=== PATIENT | male | born 1950 | race American Indian/Alaskan Native ===

== ENCOUNTER 2017-12-31 14:56 | Emergency (ER) | payer MEDICAID ==
[2017-12-31 15:21] VITALS: BP 144/84
== END 2017-12-31 18:46 | disposition left against medical advice (07) ==
LOC: ED 14:56
DX: R56.9 Unspecified convulsions (principal); Z76.0 Encounter for issue of repeat prescription; Z53.21 Procedure and treatment not carried out due to patient leaving prior to being seen by health care provider

== ENCOUNTER 2018-02-24 09:16 | Emergency (ER) | payer MEDICARE, MEDICAID ==
[2018-02-24 09:24] VITALS: BP 130/80
[2018-02-24] MEDS ORDERED: KEPPRA PO ONE (09:51)
--- NOTE | 2018-02-24 09:55 | Emergency Department Report ---
ED Medical Clearance HPI - General Chief complaint: Medical Clearance Stated complaint: MED REFILL Time Seen by Provider: 02/24/18 09:28 Source: patient, family Mode of arrival: Ambulatory - History of Present Illness Initial comments: Patient is a 67-year-old [place] male who is been brought in by his sister for medication refill. Patient has a history of seizures been off of his Keppra and phenobarbital for some time. Patient also is a heavy drinker when he drinks he curses quite a bit of his sister and sister's children. Patient is that this time is not homicidal or suicidal. Patient does not have any active hallucinations. Patient was brought in for refill of his seizure medications and to possibly be restarted on psychiatric medications. Home medications: Home Medications Medication Instructions Recorded Confirmed Last Taken PHENobarbital [Phenobarbital] 1 tab PO DAILY 07/02/15 09/07/15 Unknown Previous Rx's Medication Instructions Recorded Last Taken Type Folic Acid [Folvite] 1 mg PO QDAY #30 tablet 07/04/15 Unknown Rx Multivitamin Tab [Multiple Vitamin 1 each PO QDAY #30 tablet 07/04/15 Unknown Rx TAB (Theragran)] Thiamine [Vitamin B-1] 100 mg PO QDAY #30 tablet 07/04/15 Unknown Rx PHENobarbital 15 mg PO BID #60 tablet 02/24/18 Unknown Rx levETIRAcetam [Keppra TAB] 500 mg PO BID #60 tablet 02/24/18 Unknown Rx Allergies/Adverse reactions: Allergies Allergy/AdvReac Type Severity Reaction Status Date / Time No Known Allergies Allergy Verified 02/24/18 09:21 ED Review of Systems ROS: Stated complaint: MED REFILL Other details as noted in HPI Comment: All other systems reviewed and negative ED Past Medical Hx - Past Medical History Hx Congestive Heart Failure: No Hx Diabetes: No Hx Seizures: Yes Hx Psychiatric Treatment: Yes Hx Asthma: No Hx COPD: No - Surgical History Past Surgical History?: No - Social History Smoking Status: Current Every Day Smoker Substance Use Type: Alcohol - Medications Home Medications: Home Medications Medication Instructions Recorded Confirmed Last Taken Type PHENobarbital [Phenobarbital] 1 tab PO DAILY 07/02/15 09/07/15 Unknown History Folic Acid [Folvite] 1 mg PO QDAY #30 tablet 07/04/15 09/07/15 Unknown Rx Multivitamin Tab [Multiple Vitamin 1 each PO QDAY #30 tablet 07/04/15 09/07/15 Unknown Rx TAB (Theragran)] Thiamine [Vitamin B-1] 100 mg PO QDAY #30 tablet 07/04/15 09/07/15 Unknown Rx PHENobarbital 15 mg PO BID #60 tablet 02/24/18 Unknown Rx levETIRAcetam [Keppra TAB] 500 mg PO BID #60 tablet 02/24/18 Unknown Rx ED Physical Exam - General Limitations: No Limitations General appearance: alert, in no apparent distress - Head Head exam: Present: atraumatic, normocephalic - Eye Eye exam: Present: normal appearance - ENT ENT exam: Present: mucous membranes moist - Neck Neck exam: Present: normal inspection - Respiratory Respiratory exam: Present: normal lung sounds bilaterally. Absent: respiratory distress, wheezes, rales, rhonchi - Cardiovascular Cardiovascular Exam: Present: regular rate, normal rhythm. Absent: systolic murmur, diastolic murmur, rubs, gallop - GI/Abdominal GI/Abdominal exam: Present: soft, normal bowel sounds. Absent: distended, tenderness, guarding - Rectal Rectal exam: Present: deferred - Extremities Exam Extremities exam: Present: normal inspection - Back Exam Back exam: Present: normal inspection - Neurological Exam Neurological exam: Present: alert, oriented X3 - Psychiatric Psychiatric exam: Present: normal affect, normal mood - Skin Skin exam: Present: warm, dry, intact, normal color. Absent: rash ED Course Vital Signs 02/24/18 09:21 Temperature 98.4 F Pulse Rate 70 Respiratory 18 Rate Blood Pressure 130/80 O2 Sat by Pulse 97 Oximetry ED Medical Decision Making - Medical Decision Making Patient was given loading doses of his seizure medication as it was also referred to the hospital for further psychiatric treatment. ED Disposition Clinical Impression: Medical non-compliance, ETOH abuse, Seizure Disposition: DC-01 TO HOME OR SELFCARE Is pt being admited?: No Does the pt Need Aspirin: No Condition: Stable Instructions: Epilepsy (ED) Prescriptions: levETIRAcetam [Keppra TAB] 500 mg PO BID #60 tablet PHENobarbital 15 mg PO BID #60 tablet Referrals: PRIMARY CARE, [Primary Care Provider] - 3-5 Days
== END 2018-02-24 10:16 | disposition home or self-care (01) ==
LOC: ED 09:16
DX: G40.909 Epilepsy, unspecified, not intractable, without status epilepticus (principal); Z91.14 Patient's other noncompliance with medication regimen; F10.10 Alcohol abuse, uncomplicated; F17.200 Nicotine dependence, unspecified, uncomplicated
CPT/HCPCS: 99282

== ENCOUNTER 2020-05-30 15:19 | Emergency (ER) | payer MEDICARE ==
[2020-05-30 15:28] VITALS: BP 116/43
[2020-05-30 16:05] LABS: Hematocrit 43.2 % (35.5-45.6); Hemoglobin 14.1 gm/dl (11.8-15.2); Mean Corpuscular HGB Conc 33 % (32-34); Mean Corpuscular Volume 91 fl (84-94); Platelet Count 200 K/mm3 (140-440); Red Blood Count 4.73 M/mm3 (3.65-5.03); Red Cell Distribution Width 15.5 % (13.2-15.2)
[2020-05-30 16:25] LABS: BUN/Creatinine Ratio 8; Blood Urea Nitrogen 9 mg/dL (9-20); Calcium 9.1 mg/dL (8.4-10.2); Hemolysis Index 24
[2020-05-30] MEDS ORDERED: levETIRAcetam 1000 MG/NS 0.75% 1,000 MG/100 ML BAG IV ONE (16:33)
--- NOTE | 2020-05-30 16:41 | Emergency Department Report ---
ED Seizure HPI - General Chief Complaint: Seizure Stated Complaint: seizure Time Seen by Provider: 05/30/20 16:32 Source: patient Mode of arrival: Wheelchair Limitations: No Limitations - History of Present Illness Initial Comments: This is a 69-year-old male with history of bipolar disorder, seizure disorder, alcohol dependence who presents with witnessed seizure. Family members witnessed the seizure. He was incontinent of urine. He denies any pain. He currently desires a cigarette. According to previous electronic documentation in the electronic medical record, patient has been prescribed phenobarbital and Keppra. Complaint: seizure -: This afternoon Witnessed:: Yes Trauma: No Seizure History: known seizure disorder Place: home Associated Symptoms: denies other symptoms Treatments Prior to Arrival: none - Related Data Home Medications Medication Instructions Recorded Confirmed Last Taken PHENobarbitaL [Phenobarbital] 1 tab PO DAILY 07/02/15 09/07/15 Unknown Previous Rx's Medication Instructions Recorded Last Taken Type Folic Acid [Folvite] 1 mg PO QDAY #30 tablet 07/04/15 Unknown Rx Multivitamin Tab [Multiple Vitamin 1 each PO QDAY #30 tablet 07/04/15 Unknown Rx TAB (Theragran)] Thiamine [Vitamin B-1] 100 mg PO QDAY #30 tablet 07/04/15 Unknown Rx PHENobarbitaL [PHENobarbital] 15 mg PO BID #60 tablet 02/24/18 Unknown Rx PHENobarbitaL [PHENobarbital] 15 mg PO BID #60 tab 03/03/20 Unknown Rx levETIRAcetam [Keppra TAB] 500 mg PO BID #60 tablet 03/03/20 Unknown Rx PHENobarbitaL [PHENobarbital] 15 mg PO BID 30 Days #60 tablet 05/30/20 Unknown Rx levETIRAcetam [Keppra TAB] 500 mg PO BID #60 tablet 05/30/20 Unknown Rx Allergies Allergy/AdvReac Type Severity Reaction Status Date / Time No Known Allergies Allergy Verified 02/24/18 09:21 ED Review of Systems ROS: Stated complaint: seizure Other details as noted in HPI Comment: All other systems reviewed and negative Constitutional: denies: fever, malaise Respiratory: denies: cough, shortness of breath Cardiovascular: denies: chest pain Gastrointestinal: denies: abdominal pain, nausea, vomiting Neurological: denies: headache ED Past Medical Hx - Past Medical History Previous Medical History?: Yes Hx Congestive Heart Failure: No Hx Diabetes: No Hx Seizures: Yes Hx Psychiatric Treatment: Yes Hx Asthma: No Hx COPD: No - Surgical History Past Surgical History?: No - Social History Smoking Status: Current Every Day Smoker Substance Use Type: Alcohol - Medications Home Medications: Home Medications Medication Instructions Recorded Confirmed Last Taken Type PHENobarbitaL [Phenobarbital] 1 tab PO DAILY 07/02/15 09/07/15 Unknown History Folic Acid [Folvite] 1 mg PO QDAY #30 tablet 07/04/15 09/07/15 Unknown Rx Multivitamin Tab [Multiple Vitamin 1 each PO QDAY #30 tablet 07/04/15 09/07/15 Unknown Rx TAB (Theragran)] Thiamine [Vitamin B-1] 100 mg PO QDAY #30 tablet 07/04/15 09/07/15 Unknown Rx PHENobarbitaL [PHENobarbital] 15 mg PO BID #60 tablet 02/24/18 Unknown Rx PHENobarbitaL [PHENobarbital] 15 mg PO BID #60 tab 03/03/20 Unknown Rx levETIRAcetam [Keppra TAB] 500 mg PO BID #60 tablet 03/03/20 Unknown Rx PHENobarbitaL [PHENobarbital] 15 mg PO BID 30 Days #60 tablet 05/30/20 Unknown Rx levETIRAcetam [Keppra TAB] 500 mg PO BID #60 tablet 05/30/20 Unknown Rx ED Physical Exam - General Limitations: No Limitations General appearance: alert, in no apparent distress, appears intoxicated, other (Vomitus in parsons, soiled clothing, pants soaked with urine) - Head Head exam: Present: atraumatic, normocephalic - Eye Eye exam: Present: PERRL, conjunctival injection - ENT ENT exam: Present: mucous membranes moist - Neck Neck exam: Present: normal inspection, full ROM - Respiratory Respiratory exam: Present: normal lung sounds bilaterally. Absent: respiratory distress, wheezes, rales, rhonchi - Cardiovascular Cardiovascular Exam: Present: regular rate, normal rhythm, normal heart sounds. Absent: systolic murmur, diastolic murmur, rubs, gallop - GI/Abdominal GI/Abdominal exam: Present: soft, normal bowel sounds. Absent: distended, tenderness, guarding, rebound - Rectal Rectal exam: Present: deferred - Extremities Exam Extremities exam: Present: normal inspection - Neurological Exam Neurological exam: Present: alert, oriented X3 - Psychiatric Psychiatric exam: Present: normal affect, normal mood - Skin Skin exam: Present: warm, dry, intact, normal color. Absent: rash ED Course Vital Signs 05/30/20 15:25 Temperature 97.6 F Pulse Rate 70 Respiratory 20 Rate Blood Pressure 116/43 O2 Sat by Pulse 98 Oximetry ED Medical Decision Making - Lab Data Result diagrams: 05/30/20 15:40 05/30/20 15:40 - Medical Decision Making 1. Seizure breakthrough history of seizure disorder. Unclear if patient is taking his medication. Patient was observed in the emergency department for 4 hours without recurrent seizure activity. He is alert and oriented at this time. I have prescribed phenobarbital and Keppra according to previous dosing listed in electronic medical record. 2. Acute alcohol intoxication: Patient had slurred speech staggering gait on initial examination. After 4 hours of observation, patient is alert clinically sober ambulatory no difficulty. Critical care attestation.: If time is entered above; I have spent that time in minutes in the direct care of this critically ill patient, excluding procedure time. ED Disposition Clinical Impression: Breakthrough seizure, Seizure disorder, Acute alcohol intoxication Disposition: DC-01 TO HOME OR SELFCARE Is pt being admited?: No Does the pt Need Aspirin: No Condition: Stable Instructions: Epilepsy (ED) Prescriptions: levETIRAcetam [Keppra TAB] 500 mg PO BID #60 tablet PHENobarbitaL [PHENobarbital] 15 mg PO BID 30 Days #60 tablet Referrals: KATHERYN MUSTAFA MD [Staff Physician] - 3-5 Days
== END 2020-05-30 20:05 | disposition home or self-care (01) ==
LOC: ED 15:19
DX: G40.909 Epilepsy, unspecified, not intractable, without status epilepticus (principal); F10.129 Alcohol abuse with intoxication, unspecified; F17.200 Nicotine dependence, unspecified, uncomplicated; Z79.899 Other long term (current) drug therapy
CPT/HCPCS: 36415; 80048; 85027; 96365; 99283; J1953

== ENCOUNTER 2020-08-12 10:57 | Emergency (ER) | payer MEDICARE ==
[2020-08-12] MEDS ORDERED: SODIUM CHLORIDE 0.9% 1000 ML 1,000 ML IV ONE ×2 (11:07→11:51)
[2020-08-12] MEDS ORDERED: levETIRAcetam 1000 MG/NS 0.75% 1,000 MG/100 ML BAG IV ONE (11:07)
--- NOTE | 2020-08-12 11:19 | Emergency Department Report ---
ED Seizure HPI - General Stated Complaint: SEZIURE Time Seen by Provider: 08/12/20 11:06 Source: patient, old records reviewed Mode of arrival: Stretcher Limitations: No Limitations - History of Present Illness Initial Comments: Chief complaint: Seizure HPI: This is a 69-year-old male who presents with with history of seizure disorder alcohol dependence and bipolar affective disorder who presents via private auto for seizure. According to triage nurse, patient appeared lethargic post ictal when attempting to transfer patient from the car. Patient denies any pain. He is not taking any seizure medication. According to electronic medical record I evaluated patient in May for seizure and alcohol intoxication. I prescribed patient's Keppra and phenobarbital which patient was prescribed after being admitted for status epilepticus in 2014. MD Complaint: seizure -: Sudden Witnessed:: Yes Trauma: No Seizure History: known seizure disorder, history of non-compliance Place: home Possible Precipitating Event: other (Patient has history of alcohol dependence) Associated Symptoms: denies other symptoms Treatments Prior to Arrival: none - Related Data Home Medications Medication Instructions Recorded Confirmed Last Taken Vitamin B-1 1 tab PO DAILY 08/12/20 08/12/20 Unknown Previous Rx's Medication Instructions Recorded Last Taken Type PHENobarbitaL [PHENobarbital] 15 mg PO BID 30 Days #60 tablet 05/30/20 Unknown Rx levETIRAcetam [Keppra TAB] 500 mg PO BID #60 tablet 05/30/20 Unknown Rx levETIRAcetam [Keppra TAB] 1,000 mg PO BID 30 Days #60 tab 08/12/20 Unknown Rx Allergies Allergy/AdvReac Type Severity Reaction Status Date / Time No Known Allergies Allergy Verified 02/24/18 09:21 ED Review of Systems ROS: Stated complaint: SEZIURE Other details as noted in HPI Comment: All other systems reviewed and negative Constitutional: denies: fever, malaise Respiratory: denies: cough, shortness of breath Cardiovascular: denies: chest pain Gastrointestinal: denies: abdominal pain, nausea, vomiting Neurological: denies: headache ED Past Medical Hx - Past Medical History Previous Medical History?: Yes Hx Congestive Heart Failure: No Hx Diabetes: No Hx Seizures: Yes Hx Psychiatric Treatment: Yes Hx Asthma: No Hx COPD: No - Surgical History Past Surgical History?: No - Social History Smoking Status: Current Every Day Smoker Substance Use Type: Alcohol - Medications Home Medications: Home Medications Medication Instructions Recorded Confirmed Last Taken Type PHENobarbitaL [PHENobarbital] 15 mg PO BID 30 Days #60 tablet 05/30/20 08/12/20 Unknown Rx levETIRAcetam [Keppra TAB] 500 mg PO BID #60 tablet 05/30/20 08/12/20 Unknown Rx Vitamin B-1 1 tab PO DAILY 08/12/20 08/12/20 Unknown History levETIRAcetam [Keppra TAB] 1,000 mg PO BID 30 Days #60 tab 08/12/20 Unknown Rx ED Physical Exam - General General appearance: alert, appears intoxicated, other (Slurred speech, strong odor of alcohol on breath) - Head Head exam: Present: atraumatic, normocephalic - Eye Eye exam: Present: normal appearance. Absent: scleral icterus, conjunctival injection - ENT ENT exam: Present: mucous membranes moist - Neck Neck exam: Present: normal inspection, full ROM - Respiratory Respiratory exam: Present: normal lung sounds bilaterally. Absent: respiratory distress, wheezes, rales, rhonchi - Cardiovascular Cardiovascular Exam: Present: regular rate, normal rhythm, normal heart sounds. Absent: systolic murmur, diastolic murmur, rubs, gallop - GI/Abdominal GI/Abdominal exam: Present: soft, normal bowel sounds. Absent: distended, tenderness, guarding - Rectal Rectal exam: Present: deferred - Extremities Exam Extremities exam: Present: normal inspection - Neurological Exam Neurological exam: Present: alert, oriented X3 - Psychiatric Psychiatric exam: Present: normal affect, normal mood - Skin Skin exam: Present: warm, dry, intact, normal color. Absent: rash ED Course Vital Signs 08/12/20 08/12/20 08/12/20 11:03 11:25 11:30 Pulse Rate 49 L 47 L Respiratory 12 11 L Rate Blood Pressure 70/43 68/41 Blood Pressure 66/39 [Left] O2 Sat by Pulse 97 98 99 Oximetry 08/12/20 08/12/20 08/12/20 11:42 11:45 11:51 Pulse Rate 49 L 49 L Respiratory 18 14 Rate Blood Pressure 79/50 Blood Pressure 79/50 [Left] O2 Sat by Pulse 97 93 Oximetry 08/12/20 08/12/20 08/12/20 12:00 12:15 12:30 Pulse Rate 45 L 46 L 45 L Respiratory 11 L 11 L 12 Rate Blood Pressure 82/49 87/53 94/58 Blood Pressure [Left] O2 Sat by Pulse 95 97 100 Oximetry 08/12/20 08/12/20 12:45 13:00 Pulse Rate 45 L 48 L Respiratory 11 L 18 Rate Blood Pressure 104/58 Blood Pressure 104/58 [Left] O2 Sat by Pulse 100 98 Oximetry ED Medical Decision Making - Lab Data Result diagrams: 08/12/20 12:47 08/12/20 12:47 Laboratory Results - last 24 hr 08/12/20 08/12/20 08/12/20 12:03 12:47 12:47 WBC 6.5 RBC 4.26 Hgb 12.7 Hct 38.6 MCV 91 MCH 30 MCHC 33 RDW 14.3 Plt Count 145 Lymph % (Auto) 24.8 Reynolds % (Auto) 11.0 H Eos % (Auto) 0.5 Baso % (Auto) 0.8 Lymph # (Auto) 1.6 Reynolds # (Auto) 0.7 Eos # (Auto) 0.0 Baso # (Auto) 0.1 Seg Neutrophils % 62.9 Seg Neutrophils # 4.1 Sodium 137 Potassium 4.5 Chloride 106.1 Carbon Dioxide 22 Anion Gap 13 BUN 18 Creatinine 1.5 H Estimated GFR 56 BUN/Creatinine Ratio 12 Glucose 75 Calcium 8.5 Phosphorus 2.90 Magnesium 1.60 L Total Bilirubin 0.40 AST 29 ALT 22 Alkaline Phosphatase 58 Total Protein 6.2 L Albumin 3.1 L Albumin/Globulin Ratio 1.0 Plasma/Serum Alcohol < 0.01 - EKG Data EKG shows normal: sinus rhythm, axis, intervals, QRS complexes, ST-T waves Rate: bradycardia - EKG Data Interpretation: normal EKG 08/12/20 11:19 EKG obtained 1112 EKG interpreted by ne Sinus bradycardia rate 50 bpm normal axis normal intervals no ST-T signs of ischemia no ST elevation - Radiology Data Radiology results: report reviewed Radiology impressions: CT head without contrast no acute process CT cervical spine no evidence of acute traumatic bony injury to the spine - Medical Decision Making 1. Breakthrough seizure history of medication noncompliance. Patient received Keppra load in the emergency department. I prescribed Keppra. Also provided referral to neurologist. 2. Altered mental status: Upon presentation, patient appeared intoxicated. Patient has slurred speech with strong odor of alcohol on breath. After 4 hours observation, patient is awake alert. He is ambulatory. Speech is slightly impaired by lack of teeth. 3. Closed head injury: called nurse to report that patient struck his head during seizure activity. With prolonged altered mental status, he required CT head and CT cervical spine imaging to rule out traumatic injury. 4. Hypotension: Dehydration, suspect dehydration in setting of alcohol dependence. Patient did not have signs of sepsis or cardiogenic shock. Hypotension resolved with IV fluid therapy. Patient is ambulatory. Patient is discharged home Critical Care Time: Yes Critical care time in (mins) excluding proc time.: 40 Critical care attestation.: If time is entered above; I have spent that time in minutes in the direct care of this critically ill patient, excluding procedure time. 40 minutes of critical care time excluding procedures were used in the care of the patient. I came immediately to the bedside upon patient's arrival. I discussed treatment plan with the nursing team members. I reviewed electronic record. Patient required multiple interventions and reassessments. I was concerned for bradycardia and hypotension upon arrival. Also was concerned for possible airway compromise. ED Disposition Clinical Impression: Seizure disorder, Breakthrough seizure, Closed head injury Disposition: DC-01 TO HOME OR SELFCARE Is pt being admited?: No Does the pt Need Aspirin: No Condition: Stable Instructions: Epilepsy, [id number] Prescriptions: levETIRAcetam [Keppra TAB] 1,000 mg PO BID 30 Days #60 tab
[2020-08-12 13:15] LABS: Basophils # (Auto) 0.1 K/mm3 (0.0-0.1); Basophils % (Auto) 0.8 % (0.0-1.8); Eosinophils % (Auto) 0.5 % (0.0-4.3); Hematocrit 38.6 % (35.5-45.6); Hemoglobin 12.7 gm/dl (11.8-15.2); Lymphocytes # (Auto) 1.6 K/mm3 (1.2-5.4); Lymphocytes % (Auto) 24.8 % (13.4-35.0); Mean Corpuscular HGB Conc 33 % (32-34); Mean Corpuscular Volume 91 fl (84-94); Monocytes # (Auto) 0.7 K/mm3 (0.0-0.8); Platelet Count 145 K/mm3 (140-440); Red Blood Count 4.26 M/mm3 (3.65-5.03); Red Cell Distribution Width 14.3 % (13.2-15.2)
[2020-08-12 13:39] LABS: Albumin 3.1 g/dL (3.9-5); Calcium 8.5 mg/dL (8.4-10.2)
--- NOTE | 2020-08-12 14:00 | Cat Scan Report ---
CT head without contrast HISTORY: seizure, AMS. TECHNIQUE: Axial imaging performed from the skull apex through the skull base without the use of con trast. All CT scans at this location are performed using CT dose reduction for ALARA by means of aut omated exposure control. COMPARISON: CT head from 03/02/2020 FINDINGS: Parenchyma: No acute intracranial hemorrhage or parenchymal abnormality. Periventricular hypodensiti es are likely in keeping with microangiopathy. There also appears to be old ischemic change in the le ft frontotemporal region. Ventricles: There is mild diffuse brain atrophy with commensurate ventricular enlargement which is l ikely age appropriate. Soft tissues: Soft tissues including the orbits appear normal. Bones: No acute osseous abnormality. Sinuses: Sinuses and mastoid air cells are clear. IMPRESSION: No acute abnormality. Chronic-appearing changes. Signer Name: Vladimir Grant MD Signed: 08/12/2020 1:55 PM Workstation Name: [id number]
--- NOTE | 2020-08-12 14:07 | Cat Scan Report ---
Exam: CT cervical spine History: seizure, AMS, injury; Technique: Contiguous thin cut axial images obtained through the cervical spine. Sagittal and berry l reconstructions performed by the technologist. All CT scans at this location are performed using CT dose reduction for ALARA by means of automated exposure control. Findings: No priors. There is no evidence of fracture or traumatic subluxation. Vertebral bodies are normal in height and alignment. Intervertebral disc spaces: C2-C3: Facet hypertrophy on the left; left neuroforamen minimally narrowed; C3-C4: disc osteophyte complex towards the left side; left neuroforamen normal C4-C5: Disc osteophyte complex towards the right side; marked facet joint hypertrophic changes on the right side right neuroforamen narrowed C5-C6: Partial ankylosis of the disc space; neuroforamina are normal C6-C7: Uncovertebral joint hypertrophy on the left side narrowing the left neuroforamen C7-T1: Normal No significant degenerative change seen in the uncinate or facet joints. No significant canal stenosi s or osseous foraminal narrowing. Surrounding soft tissues are grossly normal. Impression: No signs of acute bony trauma to the cervical spine. Signer Name: Austin Morelos MD Signed: 08/12/2020 2:02 PM Workstation Name: [id number]
[2020-08-12 14:59] VITALS: BP 94/52
== END 2020-08-12 15:10 | disposition home or self-care (01) ==
LOC: ED 10:57
DX: S09.90XA Unspecified injury of head, initial encounter (principal); G40.909 Epilepsy, unspecified, not intractable, without status epilepticus; F17.200 Nicotine dependence, unspecified, uncomplicated; Z79.899 Other long term (current) drug therapy; X58.XXXA Exposure to other specified factors, initial encounter; Y93.89 Activity, other specified; Y92.89 Other specified places as the place of occurrence of the external cause; Y99.8 Other external cause status
CPT/HCPCS: 36415; 70450; 72125; 80053; 83735; 84100; 85025; 93005; 96365; 96366; 99284; J1953; J7030; 80320; G0480

== ENCOUNTER 2020-08-15 19:17 | Emergency (ER) | payer MEDICARE | END 2020-08-15 20:30 | LOC: ED 19:17 | DX: R56.9 Unspecified convulsions (principal); F20.9 Schizophrenia, unspecified; F31.9 Bipolar disorder, unspecified; Z53.21 Procedure and treatment not carried out due to patient leaving prior to being seen by health care provider ==

== ENCOUNTER 2020-10-01 20:25 | Emergency (ER) | payer MEDICARE ==
[2020-10-01 20:44] VITALS: BP 135/72
[2020-10-01] MEDS ORDERED: levETIRAcetam 1000 MG/NS 0.75% 1,000 MG/100 ML BAG IV ONE (20:45)
--- NOTE | 2020-10-01 21:38 | Emergency Department Report ---
ED Seizure HPI - General Chief Complaint: Seizure Stated Complaint: SEIZURES Time Seen by Provider: 10/01/20 20:45 Source: patient, EMS Mode of arrival: Stretcher Limitations: No Limitations - History of Present Illness Initial Comments: Chief complaint: "I want something to eat." HPI: This is a 69-year-old male with history of bipolar disorder, seizure disorder, alcohol dependence who presents with 3 seizures today. Patient arrived per EMS. Patient denies any pain. Patient denies any physical complaints. Denies any suicidal ideation. He states that he has been compliant with medication. He is unable to recall the name of his medication. Prior to the seizure today, patient has been in his normal state of health. MD Complaint: seizure -: This evening Witnessed:: Yes Trauma: No Seizure History: known seizure disorder Place: home Possible Precipitating Event: other (Unknown) Associated Symptoms: denies other symptoms - Related Data Home Medications Medication Instructions Recorded Confirmed Last Taken Vitamin B-1 1 tab PO DAILY 08/12/20 08/12/20 Unknown Previous Rx's Medication Instructions Recorded Last Taken Type PHENobarbitaL [PHENobarbital] 15 mg PO BID 30 Days #60 tablet 05/30/20 Unknown Rx levETIRAcetam [Keppra TAB] 500 mg PO BID #60 tablet 05/30/20 Unknown Rx levETIRAcetam [Keppra TAB] 1,000 mg PO BID 30 Days #60 tab 08/12/20 Unknown Rx levETIRAcetam [Keppra TAB] 1,000 mg PO BID 90 Days #180 tab 10/01/20 Unknown Rx Allergies Allergy/AdvReac Type Severity Reaction Status Date / Time No Known Allergies Allergy Verified 02/24/18 09:21 ED Review of Systems ROS: Stated complaint: SEIZURES Other details as noted in HPI Comment: All other systems reviewed and negative Constitutional: denies: fever, malaise Respiratory: denies: cough Gastrointestinal: denies: abdominal pain ED Past Medical Hx - Past Medical History Previous Medical History?: Yes Hx Congestive Heart Failure: No Hx Diabetes: No Hx Seizures: Yes Hx Psychiatric Treatment: Yes Hx Asthma: No Hx COPD: No - Social History Smoking Status: Current Every Day Smoker Substance Use Type: Alcohol - Medications Home Medications: Home Medications Medication Instructions Recorded Confirmed Last Taken Type PHENobarbitaL [PHENobarbital] 15 mg PO BID 30 Days #60 tablet 05/30/20 08/12/20 Unknown Rx levETIRAcetam [Keppra TAB] 500 mg PO BID #60 tablet 05/30/20 08/12/20 Unknown Rx Vitamin B-1 1 tab PO DAILY 08/12/20 08/12/20 Unknown History levETIRAcetam [Keppra TAB] 1,000 mg PO BID 30 Days #60 tab 08/12/20 Unknown Rx levETIRAcetam [Keppra TAB] 1,000 mg PO BID 90 Days #180 tab 10/01/20 Unknown Rx ED Physical Exam - General Limitations: No Limitations General appearance: alert, in no apparent distress, other (disheveled, poor hygiene, GCS 15) - Head Head exam: Present: atraumatic, normocephalic - Eye Eye exam: Present: normal appearance - ENT ENT exam: Present: mucous membranes moist - Neck Neck exam: Present: normal inspection, full ROM - Respiratory Respiratory exam: Present: normal lung sounds bilaterally. Absent: respiratory distress, wheezes, rales - Cardiovascular Cardiovascular Exam: Present: regular rate, normal rhythm, normal heart sounds. Absent: systolic murmur, diastolic murmur, rubs, gallop - GI/Abdominal GI/Abdominal exam: Present: soft, normal bowel sounds. Absent: distended, tenderness, guarding, rebound - Rectal Rectal exam: Present: deferred - Extremities Exam Extremities exam: Present: normal inspection - Neurological Exam Neurological exam: Present: alert, oriented X3 - Psychiatric Psychiatric exam: Present: normal mood, flat affect - Skin Skin exam: Present: warm, dry, intact, normal color. Absent: rash ED Course Vital Signs 10/01/20 10/01/20 20:42 21:33 Temperature 98.1 F Pulse Rate 70 Respiratory 18 18 Rate Blood Pressure 135/72 O2 Sat by Pulse 98 Oximetry ED Medical Decision Making - Medical Decision Making Recurrent seizure, history of seizure disorder: Patient received IV Keppra load. Patient was not not in a postictal state or lethargic upon arrival. Currently GCS 15. I have evaluated this patient on previous occasions. He is at his baseline. Patient is discharged home after short observation period. I have provided prescription for Keppra 1000 mg twice daily for 90 days. Critical care attestation.: If time is entered above; I have spent that time in minutes in the direct care of this critically ill patient, excluding procedure time. ED Disposition Clinical Impression: Seizure disorder, Recurrent seizures Disposition: DC-01 TO HOME OR SELFCARE Is pt being admited?: No Does the pt Need Aspirin: No Condition: Stable Instructions: Seizure, Adult, [id number] Prescriptions: levETIRAcetam [Keppra TAB] 1,000 mg PO BID 90 Days #180 tab Referrals: KATHERYN MUSTAFA MD [Staff Physician] - 3-5 Days
== END 2020-10-01 23:45 | disposition home or self-care (01) ==
LOC: ED 20:25
DX: R56.9 Unspecified convulsions (principal); F17.200 Nicotine dependence, unspecified, uncomplicated; Z79.899 Other long term (current) drug therapy
CPT/HCPCS: 96374; 99283; J1953

== ENCOUNTER 2020-11-11 08:30 | Inpatient (IN) | payer MEDICAID, MEDICARE ==
[2020-11-11] MEDS ORDERED: DEXTROSE 50% IN WATER (25GM) 50 ML SYRINGE IV ONE ×2 (08:32→11:37)
[2020-11-11] MEDS ORDERED: LORazepam 2 MG/ML VIAL IV ONE ×3 (08:32→08:46)
[2020-11-11] MEDS ORDERED: NALOXONE 0.4 MG/1 ML INJ IV PRN (08:33)
--- NOTE | 2020-11-11 08:36 | Emergency Department Report ---
ED General Adult HPI - General Stated complaint: UNRESPONSIVE Time Seen by Provider: 11/11/20 08:31 - History of Present Illness Initial comments: Patient presents emergency department for evaluation of altered mental status noted by family this morning. Per EMS, medics were called to evaluate patient last night, patient found to be hypoglycemic, refused further care after being treated with dextrose. Family called EMS today suspicious of cardiac arrest, patient found with contractions of extremities, nonresponsive, brought to emergency department as possible code stroke. Patient given Narcan in route to the emergency department without change in status. Patient arrives unresponsive, consequently requiring my immediate attention. - Related Data Home Medications Medication Instructions Recorded Confirmed Last Taken Vitamin B-1 1 tab PO DAILY 08/12/20 08/12/20 Unknown Previous Rx's Medication Instructions Recorded Last Taken Type PHENobarbitaL [PHENobarbital] 15 mg PO BID 30 Days #60 tablet 05/30/20 Unknown Rx levETIRAcetam [Keppra TAB] 500 mg PO BID #60 tablet 05/30/20 Unknown Rx levETIRAcetam [Keppra TAB] 1,000 mg PO BID 30 Days #60 tab 08/12/20 Unknown Rx levETIRAcetam [Keppra TAB] 1,000 mg PO BID 90 Days #180 tab 10/01/20 Unknown Rx Allergies Allergy/AdvReac Type Severity Reaction Status Date / Time No Known Allergies Allergy Verified 02/24/18 09:21 ED Review of Systems ROS: Stated complaint: UNRESPONSIVE Other details as noted in HPI Comment: Unobtainable due to pts medical conditions ED Past Medical Hx - Past Medical History Hx Congestive Heart Failure: No Hx Diabetes: No Hx Seizures: Yes Hx Psychiatric Treatment: Yes Hx Asthma: No Hx COPD: No - Social History Smoking Status: Current Every Day Smoker Substance Use Type: Alcohol - Medications Home Medications: Home Medications Medication Instructions Recorded Confirmed Last Taken Type PHENobarbitaL [PHENobarbital] 15 mg PO BID 30 Days #60 tablet 05/30/20 08/12/20 Unknown Rx levETIRAcetam [Keppra TAB] 500 mg PO BID #60 tablet 05/30/20 08/12/20 Unknown Rx Vitamin B-1 1 tab PO DAILY 08/12/20 08/12/20 Unknown History levETIRAcetam [Keppra TAB] 1,000 mg PO BID 30 Days #60 tab 12/10/20 Unknown Rx levETIRAcetam [Keppra TAB] 1,000 mg PO BID 90 Days #180 tab 10/01/20 Unknown Rx ED Physical Exam - General Limitations: Altered Mental Status General appearance: in distress, other (Poorly kempt) - Head Head exam: Present: atraumatic - Eye Eye exam: Present: other (Eyes fixed forward) Pupils: Present: other (Pupils pinpoint but reactive) - ENT ENT exam: Present: normal exam - Neck Neck exam: Present: normal inspection - Respiratory Respiratory exam: Present: normal lung sounds bilaterally - Cardiovascular Cardiovascular Exam: Present: regular rate - GI/Abdominal GI/Abdominal exam: Present: soft - exam: Present: other (Incontinent of urine) - Extremities Exam Extremities exam: Present: normal inspection - Neurological Exam Neurological exam: Present: other (Unresponsive) - Psychiatric Psychiatric exam: Present: other (Unresponsive) - Skin Skin exam: Present: warm, dry ED Course Vital Signs 11/11/20 11/11/20 11/11/20 08:46 09:22 10:15 Temperature 95.7 F L Pulse Rate 84 88 59 L Respiratory 11 L 18 Rate Blood Pressure 203/117 Blood Pressure 192/98 184/89 [Right] O2 Sat by Pulse 96 100 100 Oximetry - Reevaluation(s) Reevaluation #1: 11/11/20 08:32 Patient initially treated in EMS stretcher with 1 amp D50. Patient slightly more alert, remains nonverbal, eyes now tracking left or right rhythmically without obvious focus. Patient given Narcan 2 mg IV x1 without change in status. Patient begins having tremor exclusively the left upper extremity suggestive of focal seizure behavior, given Ativan 1 mg x 1. Patient continues to have irregular activity in left upper extremity, eventually progressing to flexion and extension of all 4 extremities. Patient given additional Ativan 1 mg x 1. Seizure activity continues, given additional Ativan 2 mg IV x1. Seizure activity continues, patient given additional 4 mg IV x1. Patient with continued abnormal extraocular movements and irregular activity of all 4 extremities, decision made to intubate patient for airway protection and seizure control. Patient loaded with Keppra 2 g IV x1. - Intubation Time Out Performed: Yes Sedative: Etomidate Paralytic: Rocuronium Laryngoscope: Aileen Size: 3 ET Tube Size: 7.5 Tube Secured Depth (cm): 22 Tube Secured Location: lips Tube Placement Confirmation: visualized tube passing t, equal breath sounds bilat, no breath sounds over epi Patient Tolerated Procedure: well Intubation Complications: none ED Medical Decision Making - Lab Data Result diagrams: 11/11/20 09:02 11/11/20 09:02 Labs 11/11/20 11/11/20 11/11/20 08:32 09:02 09:02 WBC 8.7 RBC 5.16 H Hgb 14.8 Hct 44.6 MCV 86 MCH 29 MCHC 33 RDW 16.1 H Plt Count 177 Lymph % (Auto) 12.2 L [place] % (Auto) 7.0 Eos % (Auto) 0.1 Baso % (Auto) 0.2 Lymph # (Auto) 1.1 L [place] # (Auto) 0.6 Eos # (Auto) 0.0 Baso # (Auto) 0.0 Seg Neutrophils % 80.5 H Seg Neutrophils # 7.0 PT 11.5 L INR 0.86 L APTT 25.5 Thrombin Time 17.0 ABG pH ABG pCO2 ABG pO2 ABG HCO3 ABG O2 Saturation ABG O2 Content ABG Base Excess ABG Hemoglobin ABG Carboxyhemoglobin ABG Methemoglobin Oxyhemoglobin FiO2 Sodium Potassium Chloride Carbon Dioxide Anion Gap BUN Creatinine Estimated GFR BUN/Creatinine Ratio Glucose POC Glucose 96 Calcium Magnesium Total Creatine Kinase CK-MB (CK-2) CK-MB (CK-2) Rel Index Troponin T Plasma/Serum Alcohol 11/11/20 11/11/20 11/11/20 09:02 09:02 09:02 WBC RBC Hgb Hct MCV MCH MCHC RDW Plt Count Lymph % (Auto) [place] % (Auto) Eos % (Auto) Baso % (Auto) Lymph # (Auto) [place] # (Auto) Eos # (Auto) Baso # (Auto) Seg Neutrophils % Seg Neutrophils # PT INR APTT Thrombin Time ABG pH ABG pCO2 ABG pO2 ABG HCO3 ABG O2 Saturation ABG O2 Content ABG Base Excess ABG Hemoglobin ABG Carboxyhemoglobin ABG Methemoglobin Oxyhemoglobin FiO2 Sodium Potassium Chloride Carbon Dioxide Anion Gap BUN Creatinine Estimated GFR BUN/Creatinine Ratio Glucose POC Glucose Calcium Magnesium 2.00 Total Creatine Kinase 169 CK-MB (CK-2) 6.6 H CK-MB (CK-2) Rel Index 3.9 Troponin T < 0.010 Plasma/Serum Alcohol < 0.01 11/11/20 11/11/20 09:02 10:45 WBC RBC Hgb Hct MCV MCH MCHC RDW Plt Count Lymph % (Auto) [place] % (Auto) Eos % (Auto) Baso % (Auto) Lymph # (Auto) [place] # (Auto) Eos # (Auto) Baso # (Auto) Seg Neutrophils % Seg Neutrophils # PT INR APTT Thrombin Time ABG pH 7.483 H ABG pCO2 33.9 ABG pO2 222.2 H ABG HCO3 24.9 ABG O2 Saturation 99.3 H ABG O2 Content 19.4 ABG Base Excess 1.9 ABG Hemoglobin 13.7 L ABG Carboxyhemoglobin 0.6 ABG Methemoglobin 0.3 Oxyhemoglobin 98.5 FiO2 21 Sodium 138 Potassium 4.2 Chloride 103.0 Carbon Dioxide 20 L Anion Gap 19 BUN 20 Creatinine 0.9 Estimated GFR > 60 BUN/Creatinine Ratio 22 Glucose 55 L POC Glucose Calcium 9.5 Magnesium Total Creatine Kinase CK-MB (CK-2) CK-MB (CK-2) Rel Index Troponin T Plasma/Serum Alcohol Vital Signs 11/11/20 11/11/20 11/11/20 08:46 09:22 10:15 Temperature 95.7 F L Pulse Rate 84 88 59 L Respiratory 11 L 18 Rate Blood Pressure 203/117 Blood Pressure 192/98 184/89 [Right] O2 Sat by Pulse 96 100 100 Oximetry - EKG Data -: EKG Interpreted by Me (SR with artifact vs. ectopic atrial rhy at 72, (-) ST- T changes, normal QRs) - Radiology Data Radiology results: report reviewed CXR: ETT 3cm above kaitlynn, [facility] as read by [facility] [address] [place] [address] Cat Scan Report Signed Patient: ZAIRA SHARMA MR#: [id number] : 1950 Acct:[id number] Age/Sex: 70 / M ADM Date: 11/11/20 Loc: ED Attending Dr: Ordering Physician: CARTER HARVEY MD Date of Service: 11/11/20 Procedure(s): CT head/brain wo con Accession Number(s): [id number] cc: CARTER HARVEY MD CT head/brain wo con INDICATION: Stroke symptoms. TECHNIQUE: Routine CT head. All CT scans at this location are performed using CT dose reduction for ALARA by means of automated exposure control. COMPARISON: CT head 08/12/2020. FINDINGS: Intracranial: Brain parenchyma appears similar to prior examination. Unchanged multifocal encephalomalacia in the left frontal and left temporal lobe. Periventricular and centrum semiovale T2 white matter hyperintensities most consistent with sequela of chronic microvascular disease. No velasquez-white matter differentiation loss suggest acute infarction. No intracranial hemorrhage. No extra axial collection. No hydrocephalus. No herniation. Sinuses: Complete opacification of the left maxillary sinus with hyperostosis of the nielsen consistent with chronicity. Otherwise the paranasal sinuses and mastoid air cells are essentially clear.. Orbits: Globes are intact. Calvarium: No acute fracture. IMPRESSION: 1. No acute intracranial abnormality. Signer Name: Mitch Schaffer MD Signed: 11/11/2020 10:24 AM Workstation Name: [id number] Transcribed By: CS Dictated By: Mitch Schaffer MD Electronically Authenticated By: Mitch Schaffer MD Signed Date/Time: 11/11/20 1024 CTA HEAD/NECK: encephelomalecia/neg per radiology Critical Care Time: Yes Critical care time in (mins) excluding proc time.: 35 Critical care attestation.: If time is entered above; I have spent that time in minutes in the direct care of this critically ill patient, excluding procedure time. ED Disposition Clinical Impression: Status epilepticus Disposition: OP ADMIT IP TO THIS HOSP Is pt being admited?: Yes Condition: Stable
[2020-11-11] MEDS ORDERED: THIAMINE 200 MG/2 ML VIAL IM ONE (08:47)
[2020-11-11] MEDS ORDERED: SODIUM CHLORIDE 0.9% 1000 ML 1,000 ML IV ONE (08:47)
[2020-11-11] MEDS ORDERED: MINERAL OIL/PETROLATUM, WHITE OPHTH OINT 3.5 GM OU PRN (09:14)
[2020-11-11 09:17] LABS: Basophils % (Auto) 0.2 % (0.0-1.8); Eosinophils % (Auto) 0.1 % (0.0-4.3); Hematocrit 44.6 % (35.5-45.6); Hemoglobin 14.8 gm/dl (11.8-15.2); Lymphocytes # (Auto) 1.1 K/mm3 (1.2-5.4); Lymphocytes % (Auto) 12.2 % (13.4-35.0); Mean Corpuscular HGB Conc 33 % (32-34); Mean Corpuscular Volume 86 fl (84-94); Monocytes # (Auto) 0.6 K/mm3 (0.0-0.8); Platelet Count 177 K/mm3 (140-440); Red Blood Count 5.16 M/mm3 (3.65-5.03); Red Cell Distribution Width 16.1 % (13.2-15.2)
[2020-11-11] MEDS ORDERED: ROCURONIUM 50 MG/5 ML INJ IV ONE (09:17)
[2020-11-11] MEDS ORDERED: ETOMIDATE 20 MG/10 ML INJ IV ONE (09:17)
[2020-11-11 09:28] LABS: INR 0.86 (0.87-1.13)
[2020-11-11 09:37] LABS: Creatine Kinase MB 6.6 ng/mL (0.0-4.0)
[2020-11-11 09:40] LABS: Partial Thromboplastin Time 25.5 Sec. (24.2-36.6)
[2020-11-11] MEDS ORDERED: NALOXONE 2 MG/2 ML INJ ONE (09:53)
--- NOTE | 2020-11-11 10:29 | Cat Scan Report ---
CT head/brain wo con INDICATION: Stroke symptoms. TECHNIQUE: Routine CT head. All CT scans at this location are performed using CT dose reduction for A ELIJAH by means of automated exposure control. COMPARISON: CT head 08/12/2020. FINDINGS: Intracranial: Brain parenchyma appears similar to prior examination. Unchanged multifocal encephaloma lacia in the left frontal and left temporal lobe. Periventricular and centrum semiovale T2 white suleman er hyperintensities most consistent with sequela of chronic microvascular disease. No velasquez-white suleman er differentiation loss suggest acute infarction. No intracranial hemorrhage. No extra axial collecti on. No hydrocephalus. No herniation. Sinuses: Complete opacification of the left maxillary sinus with hyperostosis of the nielsen consistent with chronicity. Otherwise the paranasal sinuses and mastoid air cells are essentially clear.. Orbits: Globes are intact. Calvarium: No acute fracture. IMPRESSION: 1. No acute intracranial abnormality. Signer Name: Mitch Schaffer MD Signed: 11/11/2020 10:24 AM Workstation Name: [id number]
[2020-11-11] MEDS ORDERED: levETIRAcetam 1000 MG/NS 0.75% 1,000 MG/100 ML BAG IV ONE ×2 (10:44→10:46)
[2020-11-11 10:48] LABS: ABG Base Excess 1.9 mmol/L (-2.0-3.0); ABG HCO3 24.9 mmol/L (20.0-26.0); ABG Methemoglobin 0.3 % (0.0-1.5); ABG Oxygen Saturation 99.3 % (95.0-99.0); ABG PCO2 33.9 mm Hg; ABG PH 7.483 pH Units (7.350-7.450); ABG PO2 222.2 mm Hg (80.0-90.0)
[2020-11-11 10:50] LABS: BUN/Creatinine Ratio 22; Blood Urea Nitrogen 20 mg/dL (9-20); Calcium 9.5 mg/dL (8.4-10.2); Hemolysis Index 54
--- NOTE | 2020-11-11 12:27 | Cat Scan Report ---
CT angio neck INDICATION / CLINICAL INFORMATION: 70 years Male; MAIN. TECHNIQUE: Thin cut axial images obtained through the head during IV bolus contrast administration. S agittal, coronal, and 3 plane MIP reconstructions performed by the technologist. NASCET type criteria used evaluate stenoses. All CT scans at this location are performed using CT dose reduction for ALAR A by means of automated exposure control. COMPARISON: None available. FINDINGS: CAROTID ARTERIES: The motion degrades the image quality, particularly involving segments of the dista l cervical vessels. However, there is atherosclerotic plaque involving proximal left ICA with 60% lisbet nosis by NASCET criteria. There is also calcification at the bifurcation without significant narrowin g. There is also calcification involving proximal right ICA and bifurcation. However, there is no signif icant stenosis by NASCET type criteria. VERTEBRAL ARTERIES: There is mild develop mental hypoplasia of the left vertebral artery without sign ificant focal stenosis. There is a small focus of calcification at the origin of the right vertebral artery. However, there is no significant stenosis. ARCH: There are foci of calcification involving the aortic arch. However, there does not appear to be significant narrowing of the origins of the arch vessels at. ADDITIONAL FINDINGS: The patient is intubated at. There are multilevel degenerative the changes of th e cervical spine spine. IMPRESSION: There is atherosclerotic calcification involving proximal left ICA with 60% stenosis by NASCET criter ia. 2. There is also calcification involving right carotid bifurcation and proximal right ICA without sig nificant stenosis. The study was specified as stat and dictated on an emergent basis at 11:27 AM Central standard time o nce noted. However, there does appear to be some delay in the completion of this exam Signer Name: Tonny Hdez MD Signed: 11/11/2020 12:22 PM Workstation Name: [id number]
--- NOTE | 2020-11-11 17:33 | Cat Scan Report ---
CT angio head INDICATION / CLINICAL INFORMATION: 70 years Male; MAIN. TECHNIQUE: Thin cut axial images obtained through the head during IV bolus contrast administration. S agittal, coronal, and 3 plane MIP reconstructions performed by the technologist. NASCET type criteria used evaluate stenoses. Automated exposure control utilized for radiation reduction purposes. COMPARISON: None available. FINDINGS: There is some degree of encephalomalacia in the anterolateral temporal and frontal lobes on the left. INTERNAL CAROTID ARTERIES: No significant narrowing appreciated. Mild atherosclerotic disease noted. VERTEBROBASILAR SYSTEM: No significant narrowing appreciated. DISTAL BRANCHES: Distal branches of the anterior, middle, and posterior cerebral arteries are fairly symmetric in appearance and number. ANEURYSM: None identified. There are small infundibula associated with posterior communicating arteri es bilaterally. ADDITIONAL FINDINGS: There is opacification of the left maxillary antrum. With wall thickening noted- chronic sinus disease suggested. Mild to moderate mucosal thickening seen in the ethmoids. IMPRESSION: No significant narrowing appreciated on this CTA of the head. Signer Name: Migue Garcia MD, III Signed: 11/11/2020 5:29 PM Workstation Name: [id number]
[2020-11-11 21:29] LABS: Amphetamine Screen,Urine Negative; Benzodiazepines Screen,Urine Negative; Cannabinoid Screen,Urine Negative; Cocaine Screen,Urine Negative; Methadone Screen,Urine Negative; Opiate Screen,Urine Negative
[2020-11-11 21:46] LABS: Bacteria,Urine 1+ /HPF (Negative); Bilirubin,Urine NEG (Negative); Blood,Urine SM (Negative); Color,Urine Yellow (Yellow); Mucus,Urine FEW /HPF
[2020-11-11] MEDS: LORazepam 2 MG/ML VIAL IV PRN (22:19)
--- NOTE | 2020-11-11 22:56 | History and Physical Report ---
History of Present Illness Date of examination: 11/11/20 Date of admission: 11/11/20 13:04 Chief complaint: Unresponsive since a.m. History of present illness: 60-year-old male with history of seizure disorder found unresponsive. On arrival of EMS patient was found to be hypoglycemic for which IV dextrose was given and patient became responsive. Family refused further care. Family called EMS again because of the unresponsiveness and possible cardiac arrest. P atient was given Narcan with no response. Patient was unresponsive and code stroke was initiated. Patient was given Narcan with no response. Patient was unresponsive and was intubated because of protection of airway. No seizures noted. Patient was history of seizures. No fever or chills. - Past Medical History --Seizures: Yes --Psychiatric Treatment: Yes - Social History Smoking Status: Current Every Day Smoker Substance Use Type: Alcohol - Medications Home Medications: Home Medications Medication Instructions Recorded Confirmed Last Taken Type PHENobarbitaL [PHENobarbital] 15 mg PO BID 30 Days #60 tablet 05/30/20 08/12/20 Unknown Rx levETIRAcetam [Keppra TAB] 500 mg PO BID #60 tablet 05/30/20 08/12/20 Unknown Rx Vitamin B-1 1 tab PO DAILY 08/12/20 08/12/20 Unknown History levETIRAcetam [Keppra TAB] 1,000 mg PO BID 30 Days #60 tab 08/12/20 Unknown Rx levETIRAcetam [Keppra TAB] 1,000 mg PO BID 90 Days #180 tab 10/01/20 Unknown Rx Review of Systems ROS: Stated complaint: UNRESPONSIVE Other details as noted in HPI Comment: Unobtainable due to pts medical conditions Medications and Allergies Allergies Allergy/AdvReac Type Severity Reaction Status Date / Time No Known Allergies Allergy Verified 02/24/18 09:21 Home Medications Medication Instructions Recorded Confirmed Last Taken Type PHENobarbitaL [PHENobarbital] 15 mg PO BID 30 Days #60 tablet 05/30/20 08/12/20 Unknown Rx levETIRAcetam [Keppra TAB] 500 mg PO BID #60 tablet 05/30/20 08/12/20 Unknown Rx Vitamin B-1 1 tab PO DAILY 08/12/20 08/12/20 Unknown History levETIRAcetam [Keppra TAB] 1,000 mg PO BID 30 Days #60 tab 08/12/20 Unknown Rx levETIRAcetam [Keppra TAB] 1,000 mg PO BID 90 Days #180 tab 10/01/20 Unknown Rx Active Meds: Active Medications Dextrose (Dextrose 50% In Water (25gm) 50 Ml Syringe) 50 ml IV ONCE PRN; Protocol PRN Reason: Hypoglycemia Hydrophilic Ointment (Lip Therapy Vaseline) 1 applic TP Q2HR PRN PRN Reason: Dry Lips Propofol (Diprivan 10 Mg/Ml) 1,000 mg in 100 mls @ 2.1 mls/hr IV TITR [facility]; Protocol Last Titration: 11/11/20 18:20 Dose: 30 mcg/kg/min, 12.6 mls/hr Documented by: Insulin Human Regular (Insulin Regular, Human 100 Units/1 Ml) 0 units SUB-Q ACHS [facility]; Protocol Lorazepam (Lorazepam 2 Mg/Ml Vial) 1 mg IV Q2H PRN PRN Reason: Seizures Last Admin: 11/11/20 22:19 Dose: 1 mg Documented by: Multi-Ingred Cream/Lotion/Oil/Oint (Mineral Oil/Petrolatum, White Ophth Oint 3.5 Gm) 1 applic OU Q4HR PRN PRN Reason: Dry Eye(s) Naloxone HCl (Naloxone 0.4 Mg/1 Ml Inj) 2 mg IV Q2MIN PRN PRN Reason: Res Rate </= 8 or 02 SAT < 92% Exam - Physical Exam Narrative exam: Patient intubated - Constitutional Vitals: Temp Pulse Resp BP Pulse Ox 95.7 F L 106 H 16 165/94 99 11/11/20 09:22 11/11/20 21:35 11/11/20 20:41 11/11/20 19:08 11/11/20 21:35 General appearance: Present: no acute distress, well-nourished - EENT Eyes: Present: PERRL ENT: hearing intact, clear oral mucosa - Neck Neck: Present: supple, normal ROM - Respiratory Respiratory effort: normal Respiratory: bilateral: CTA - Cardiovascular Heart rate: 78 Rhythm: regular Heart Sounds: Present: S1 & S2. Absent: rub, click - Extremities Extremities: no ischemia, pulses symmetrical, No edema Peripheral Pulses: within normal limits - Abdominal General gastrointestinal: Present: soft, non-tender, non-distended, normal bowel sounds Male genitourinary: Present: normal - Integumentary Integumentary: Present: clear, warm, dry - Musculoskeletal Musculoskeletal: gait normal, strength equal bilaterally - Psychiatric Psychiatric: appropriate mood/affect, intact judgment & insight - Neurologic Neurologic: CNII-XII intact, moves all extremities - Allied Health Allied health notes reviewed: nursing, case management HEART Score - HEART Score Troponin: Troponin T < 0.010 ng/mL (0.00-0.029) 11/11/20 09:02 Results - Labs CBC & Chem 7: 11/11/20 09:02 11/11/20 23:43 Labs: Laboratory Last Values WBC 8.7 K/mm3 (4.5-11.0) 11/11/20 09:02 RBC 5.16 M/mm3 (3.65-5.03) H 11/11/20 09:02 Hgb 14.8 gm/dl (11.8-15.2) 11/11/20 09:02 Hct 44.6 % (35.5-45.6) 11/11/20 09:02 MCV 86 fl (84-94) 11/11/20 09:02 MCH 29 pg (28-32) 11/11/20 09:02 MCHC 33 % (32-34) 11/11/20 09:02 RDW 16.1 % (13.2-15.2) H 11/11/20 09:02 Plt Count 177 K/mm3 (140-440) 11/11/20 09:02 Lymph % (Auto) 12.2 % (13.4-35.0) L 11/11/20 09:02 [place] % (Auto) 7.0 % (0.0-7.3) 11/11/20 09:02 Eos % (Auto) 0.1 % (0.0-4.3) 11/11/20 09:02 Baso % (Auto) 0.2 % (0.0-1.8) 11/11/20 09:02 Lymph # (Auto) 1.1 K/mm3 (1.2-5.4) L 11/11/20 09:02 H[place] # (Auto) 0.6 K/mm3 (0.0-0.8) 11/11/20 09:02 Eos # (Auto) 0.0 K/mm3 (0.0-0.4) 03/11/21 09:02 Baso # (Auto) 0.0 K/mm3 (0.0-0.1) 11/11/20 09:02 Seg Neutrophils % 80.5 % (40.0-70.0) H 11/11/20 09:02 Seg Neutrophils # 7.0 K/mm3 (1.8-7.7) 11/11/20 09:02 PT 11.5 Sec. (12.2-14.9) L 11/11/20 09:02 INR 0.86 (0.87-1.13) L 11/11/20 09:02 APTT 25.5 Sec. (24.2-36.6) 11/11/20 09:02 Thrombin Time 17.0 Sec. (15.1-19.6) 11/11/20 09:02 ABG pH 7.483 pH Units (7.350-7.450) H 11/11/20 10:45 ABG pCO2 33.9 mm Hg 11/11/20 10:45 ABG pO2 222.2 mm Hg (80.0-90.0) H 11/11/20 10:45 ABG HCO3 24.9 mmol/L (20.0-26.0) 11/11/20 10:45 ABG O2 Saturation 99.3 % (95.0-99.0) H 11/11/20 10:45 ABG O2 Content 19.4 (0.0-44) 11/11/20 10:45 ABG Base Excess 1.9 mmol/L (-2.0-3.0) 11/11/20 10:45 ABG Hemoglobin 13.7 gm/dl (14.0-18.0) L 11/11/20 10:45 ABG Carboxyhemoglobin 0.6 % (0.0-5.0) 11/11/20 10:45 ABG Methemoglobin 0.3 % (0.0-1.5) 11/11/20 10:45 Oxyhemoglobin 98.5 % (95.0-99.0) 11/11/20 10:45 FiO2 21 % 11/11/20 10:45 Sodium 138 mmol/L (137-145) 11/11/20 09:02 Potassium 4.2 mmol/L (3.6-5.0) 11/11/20 09:02 Chloride 103.0 mmol/L (98-107) 11/11/20 09:02 Carbon Dioxide 20 mmol/L (22-30) L 11/11/20 09:02 Anion Gap 19 mmol/L 11/11/20 09:02 BUN 20 mg/dL (9-20) 11/11/20 09:02 Creatinine 0.9 mg/dL (0.8-1.3) 11/11/20 09:02 Estimated GFR > 60 ml/min 11/11/20 09:02 BUN/Creatinine Ratio 22 % 11/11/20 09:02 Glucose 55 mg/dL (75-100) L 11/11/20 09:02 POC Glucose 161 mg/dL (70-105) H 11/11/20 20:34 Calcium 9.5 mg/dL (8.4-10.2) 11/11/20 09:02 Magnesium 2.00 mg/dL (1.7-2.3) 11/11/20 09:02 Total Creatine Kinase 169 units/L (55-170) 11/11/20 09:02 CK-MB (CK-2) 6.6 ng/mL (0.0-4.0) H 11/11/20 09:02 CK-MB (CK-2) Rel Index 3.9 (0-4) 11/11/20 09:02 Troponin T < 0.010 ng/mL (0.00-0.029) 11/11/20 09:02 Urine Color Yellow (Yellow) 11/11/20 20:27 Urine Turbidity Clear (Clear) 11/11/20 20: Urine pH 6.0 (5.0-7.0) 11/11/20 20:27 Ur Specific Perkins 1.045 (1.003-1.030) H 11/11/20 20:27 Urine Protein 100 mg/dl mg/dL (Negative) 11/11/20 20:27 Urine Glucose (UA) Neg mg/dL (Negative) 11/11/20 20: Urine Ketones Neg mg/dL (Negative) 11/11/20 20: Urine Blood Sm (Negative) 11/11/20 20: Urine Nitrite Neg (Negative) 11/11/20 20: Urine Bilirubin Neg (Negative) 11/11/20 20:27 Urine Urobilinogen 4.0 mg/dL (<2.0) 11/11/20 20:27 Ur Leukocyte Esterase Neg (Negative) 11/11/20 20:27 Urine WBC (Auto) 1.0 /HPF (0.0-6.0) 11/11/20 20:27 Urine RBC (Auto) 4.0 /HPF (0.0-6.0) 11/11/20 20:27 U Epithel Cells (Auto) 12.0 /HPF (0-13.0) 11/11/20 20:27 Urine Bacteria (Auto) 1+ /HPF (Negative) 11/11/20 20:27 Urine Mucus Few /HPF 11/11/20 20:27 Urine Opiates Screen Negative 11/11/20 20:27 Urine Methadone Screen Negative 11/11/20 20:27 Ur Barbiturates Screen Positive 11/11/20 20:27 Ur Phencyclidine Scrn Negative 11/11/20 20:27 Ur Amphetamines Screen Negative 11/11/20 20:27 U Benzodiazepines Scrn Negative 11/11/20 20:27 Urine Cocaine Screen Negative 11/11/20 20:27 U Marijuana (THC) Screen Negative 11/11/20 20:27 Drugs of Abuse Note Disclamer 11/11/20 20:27 Plasma/Serum Alcohol < 0.01 % (0-0.07) 11/11/20 09:02 Short CBC 11/11/20 Range/Units 09:02 WBC 8.7 (4.5-11.0) K/mm3 Hgb 14.8 (11.8-15.2) gm/dl Hct 44.6 (35.5-45.6) % Plt Count 177 (140-440) K/mm3 [facility] 11/11/20 11/11/20 09:02 23:43 Sodium 138 Potassium 4.2 Chloride 103.0 Carbon Dioxide 20 L BUN 20 Creatinine 0.9 Glucose 55 L 30 L* Calcium 9.5 Cardiac Enzymes 11/11/20 Range/Units 09:02 Total Creatine Kinase 169 (55-170) units/L CK-MB (CK-2) 6.6 H (0.0-4.0) ng/mL Troponin T < 0.010 (0.00-0.029) ng/mL Urine 11/11/20 Range/Units 20:27 Urine Color Yellow (Yellow) Urine pH 6.0 (5.0-7.0) Ur Specific Perkins 1.045 H (1.003-1.030) Urine Protein 100 mg/dl (Negative) mg/dL Urine Glucose (UA) Neg (Negative) mg/dL - Imaging and Cardiology EKG: report reviewed (No acute ST-T wave changes) CT Scan - head: report reviewed Imaging and Cardiology: Head CT No acute intracranial abnormalities Neck CTA Head CTA No acute abnormalities noticed are appreciated There is atherosclerotic calcification involving proximal left ICA with 60% stenosis There is also calcification involving the right carotid bifurcation and proximal right ICA without significant stenosis Assessment and Plan Assessment and plan: Critical care statement The high probability OF a clinically significant sudden or life-threatening deterioration of the cardiorespiratory system and endocrine system required my full and direct attention, intervention and postoperative management. The aggregate critical care time was 40 minutes. The time is in addition to time spent performing reported procedures but includes the followin: Data review and interpretation 2: Patient assessment and monitoring of vital signs 3: Documentation 4:: Medication orders and management Advance Directives: Yes VTE prophylaxis?: Chemical - Patient Problems (1) Acute respiratory failure with hypoxia Current Visit: Yes Status: Acute Plan to address problem: Patient intubated and on vent. Vent management. Barrel [employer] consult requested. (2) Acute encephalopathy Current Visit: Yes Status: Acute Plan to address problem: Possible seizures/sepsis Rule out meningitis which is unlikely given the history of no fever and sudden onset of unresponsiveness Most likely secondary to persistent hypoglycemia IV D5W and D50 W as necessary (3) Seizure disorder Current Visit: Yes Status: Acute Plan to address problem: Patient initiated on IV Keppra (4) Lactic acidosis Current Visit: No Status: Acute Plan to address problem: Secondary to seizures No focus of infection Empiric antibiotic started (5) Postictal coma Current Visit: No Status: Acute Plan to address problem: High possibility Neurology consult requested (6) DVT prophylaxis Current Visit: Yes Status: Acute Plan to address problem: On heparin and GI prophylaxis
[2020-11-11] MEDS ORDERED: METOCLOPRAMIDE 10 MG/2 ML INJ IV PRN (22:58)
[2020-11-11] MEDS ORDERED: ONDANSETRON 4 MG/2 ML INJ IV PRN (22:58)
[2020-11-11] MEDS ORDERED: MORPHINE 2 MG/1 ML INJ IV PRN (22:58)
[2020-11-11] MEDS ORDERED: IPRATROPIUM/ALBUTEROL SULFATE 3 ML AMPUL.NEB IH SCH (23:00)
[2020-11-11] MEDS ORDERED: IPRATROPIUM/ALBUTEROL SULFATE 3 ML AMPUL.NEB IH PRN (23:00)
[2020-11-11] MEDS ORDERED: levETIRAcetam 1,000 MG in DEXTROSE 5% IN WATER 100 ML IV SCH (23:00)
[2020-11-11] MEDS ORDERED: ALBUTEROL 2.5 MG/3 ML NEBU IH PRN (23:18)
[2020-11-11] MEDS ORDERED: THIAMINE 100 MG, FOLIC ACID 1 MG, MULTIPLE VITAMIN INJ, ADULT 10 ML in SODIUM CHLORIDE ... IV ONE (23:21)
[2020-11-11] MEDS ORDERED: VANCOMYCIN PHARMACY TO DOSE IV SCH (23:45)
[2020-11-11] MEDS: hydrALAZINE 20 MG/1 ML INJ IV SCH (23:52)
[2020-11-11] MEDS: FAMOTIDINE 20 MG/2 ML INJ IV SCH (23:53)
[2020-11-11] MEDS: methylPREDNISolone Sod Succinate 125 MG/2 ML INJ IV SCH (23:53)
[2020-11-12] MEDS ORDERED: VANCOMYCIN 1,500 MG in SODIUM CHLORIDE 0.9% 500 ML 500 ML IV ONE
[2020-11-12] MEDS ORDERED: THIAMINE 100 MG, FOLIC ACID 1 MG in SODIUM CHLORIDE 0.9% 1000 ML 1,000 ML IV ONE (00:30)
[2020-11-12] MEDS ORDERED: MULTIVITAMINS ,THERAPEUTIC TAB PO ONE (00:30)
[2020-11-12] MEDS ORDERED: ETOMIDATE 20 MG/10 ML INJ IV ONE (00:39)
[2020-11-12] MEDS ORDERED: ROCURONIUM 50 MG/5 ML INJ IV ONE (00:39)
[2020-11-12] MEDS: CEFEPIME/NS 2 GM/100 ML 2 GM/100 ML BAG IV SCH ×3 (00:43→16:34)
[2020-11-12] MEDS: PHENobarbital 15 MG TAB PO SCH ×3 (00:43→22:06)
[2020-11-12] MEDS: DEXTROSE 50% IN WATER (25GM) 50 ML SYRINGE IV PRN (00:48)
--- NOTE | 2020-11-12 01:23 | XRay Report ---
CHEST 1 VIEW 11/12/2020 12:13 AM INDICATION / CLINICAL INFORMATION: follow up respiratory failure. COMPARISON: Previous day. FINDINGS: SUPPORT DEVICES: NG tube in satisfactory position. HEART / MEDIASTINUM: No significant abnormality. LUNGS / PLEURA: Improving aeration at the lung bases. No infiltrate. ADDITIONAL FINDINGS: No significant additional findings. IMPRESSION: Improving aeration at the lung bases. Signer Name: Juancho Cortez MD Signed: 11/12/2020 1:19 AM Workstation Name: [id number]
[2020-11-12] MEDS: LORazepam 2 MG/ML VIAL IV PRN ×3 (01:25→06:40)
[2020-11-12] MEDS: hydrALAZINE 20 MG/1 ML INJ IV SCH ×3 (02:40→10:25)
[2020-11-12] MEDS: methylPREDNISolone Sod Succinate 125 MG/2 ML INJ IV SCH (06:39)
[2020-11-12] MEDS: INSULIN REGULAR, HUMAN 100 UNITS/1 ML SUB-Q SCH ×3 (08:00→18:15)
[2020-11-12] MEDS: IPRATROPIUM/ALBUTEROL SULFATE 3 ML AMPUL.NEB IH SCH ×4 (08:11→20:02)
--- NOTE | 2020-11-12 09:13 | Consultation ---
History of Present Illness Consult date: 11/12/20 Reason for Consult: Seizures Chief complaint: Seizures History of present illness: 70 yo male with seizure d/o presenting with a noted hypoglycemic episode and then noted by family with another episode where the family found him unresponsive. He was given 1 amp D50 and he was noted to start coming around but then noted with status epilepticus. Required multiple rounds of ativan and was loaded with Keppra 2 grams. Required intubation for airway protection and seizure management. Past History Past Medical History: seizures Medications and Allergies Allergies Allergy/AdvReac Type Severity Reaction Status Date / Time No Known Allergies Allergy Verified 02/24/18 09:21 Home Medications Medication Instructions Recorded Confirmed Last Taken Type PHENobarbitaL [PHENobarbital] 15 mg PO BID 30 Days #60 tablet 05/30/20 08/12/20 Unknown Rx levETIRAcetam [Keppra TAB] 500 mg PO BID #60 tablet 05/30/20 08/12/20 Unknown Rx Vitamin B-1 1 tab PO DAILY 08/12/20 08/12/20 Unknown History levETIRAcetam [Keppra TAB] 1,000 mg PO BID 30 Days #60 tab 08/12/20 Unknown Rx levETIRAcetam [Keppra TAB] 1,000 mg PO BID 90 Days #180 tab 10/01/20 Unknown Rx Active Meds: Active Medications Acetaminophen (Acetaminophen 325 Mg Tab) 650 mg PO Q4H PRN PRN Reason: Pain MILD(1-3)/Fever >100.5/BAR Albuterol (Albuterol 2.5 Mg/3 Ml Nebu) 2.5 mg IH Q3HRT PRN PRN Reason: Wheezing Albuterol/Ipratropium (Ipratropium/Albuterol Sulfate 3 Ml Ampul.Neb) 1 ampul IH QIDRT [facility] Last Admin: 11/12/20 08:11 Dose: 1 ampul Documented by: Dextrose (Dextrose 50% In Water (25gm) 50 Ml Syringe) 50 ml IV ONCE PRN; Protocol PRN Reason: Hypoglycemia Last Admin: 11/12/20 00:48 Dose: 25 ml Documented by: Enoxaparin Sodium (Enoxaparin 40 Mg/0.4 Ml Inj) 40 mg SUB-Q QDAY@2200 [facility]; Protocol Famotidine (Famotidine 20 Mg/2 Ml Inj) 20 mg IV BID [facility] Last Admin: 11/11/20 23:53 Dose: 20 mg Documented by: Hydralazine HCl (Hydralazine 20 Mg/1 Ml Inj) 10 mg IV Q3H [facility] Last Admin: 11/12/20 06:38 Dose: 10 mg Documented by: Hydrophilic Ointment (Lip Therapy Vaseline) 1 applic TP Q2HR PRN PRN Reason: Dry Lips Propofol (Diprivan 10 Mg/Ml) 1,000 mg in 100 mls @ 2.1 mls/hr IV TITR [facility]; Protocol Last Titration: 11/12/20 05:35 Dose: Infused Documented by: Sodium Chloride (Nacl 0.9% 1000 Ml) 1,000 mls @ 75 mls/hr IV DIRECT KIRK Levetiracetam 1,000 mg/ (Dextrose) 110 mls @ 400 mls/hr IV Q12HR [facility] Last Admin: 11/12/20 00:13 Dose: 400 mls/hr Documented by: Cefepime HCl (Cefepime/Ns 2 Gm/100 Ml) 2 gm in 100 mls @ 200 mls/hr IV Q8H [facility]; Protocol Last Admin: 11/12/20 00:43 Dose: 200 mls/hr Documented by: Thiamine HCl 100 mg/ Folic Acid 1 mg/ Multivitamins/Minerals 10 ml/ Sodium Chloride 1,011.2 mls @ 125 mls/hr IV Q24H [facility] Vancomycin HCl (Vancomycin/Ns 1 Gm/250 Ml) 1 gm in 250 mls @ 166.667 mls/hr IV Q12H [facility] Insulin Human Regular (Insulin Regular, Human 100 Units/1 Ml) 0 units SUB-Q ACHS [facility]; Protocol Last Admin: 11/12/20 08:00 Dose: Not Given Documented by: Lorazepam (Lorazepam 2 Mg/Ml Vial) 1 mg IV Q2H PRN PRN Reason: Seizures Last Admin: 11/12/20 06:40 Dose: 1 mg Documented by: Methylprednisolone Sodium Succinate (Methylprednisolone Sod Succinate 125 Mg/2 Ml Inj) 60 mg IV Q8HR [facility] Last Admin: 11/12/20 06:39 Dose: 60 mg Documented by: Metoclopramide HCl (Metoclopramide 10 Mg/2 Ml Inj) 10 mg IV Q6H PRN PRN Reason: Nausea And Vomiting Morphine Sulfate (Morphine 2 Mg/1 Ml Inj) 2 mg IV Q4H PRN PRN Reason: Pain, Moderate (4-6) Multi-Ingred Cream/Lotion/Oil/Oint (Mineral Oil/Petrolatum, White Ophth Oint 3.5 Gm) 1 applic OU Q4HR PRN PRN Reason: Dry Eye(s) Naloxone HCl (Naloxone 0.4 Mg/1 Ml Inj) 2 mg IV Q2MIN PRN PRN Reason: Res Rate </= 8 or 02 SAT < 92% Ondansetron HCl (Ondansetron 4 Mg/2 Ml Inj) 4 mg IV Q3H PRN PRN Reason: Nausea And Vomiting Phenobarbital (Phenobarbital 15 Mg Tab) 15 mg PO BID [facility] Last Admin: 11/12/20 00:43 Dose: 15 mg Documented by: Sodium Chloride (Sodium Chloride 0.9% 10 Ml Flush Syringe) 10 ml IV BID [facility] Last Admin: 11/11/20 23:53 Dose: 10 ml Documented by: Sodium Chloride (Sodium Chloride 0.9% 10 Ml Flush Syringe) 10 ml IV PRN PRN PRN Reason: LINE FLUSH Physical Examination - Vital Signs Vital Signs: Vital Signs Pulse Resp BP Pulse Ox 84 11 L 192/98 96 11/11/20 08:46 11/11/20 08:46 11/11/20 08:46 11/11/20 08:46 - Physical Exam Narrative exam: Televideo is not available at present. Results - Laboratory Findings CBC and BMP: 11/12/20 08:14 11/12/20 08:14 Abnormal Lab Findings: Abnormal Labs 11/11/20 11/11/20 11/11/20 09:02 09:02 09:02 RBC 5.16 H RDW 16.1 H Lymph % (Auto) 12.2 L Lymph # (Auto) 1.1 L Seg Neutrophils % 80.5 H PT 11.5 L INR 0.86 L ABG pH POC ABG pCO2 ABG pO2 ABG O2 Saturation ABG Hemoglobin ABG Sodium Carbon Dioxide Glucose POC Glucose CK-MB (CK-2) 6.6 H Ur Specific Omega 11/11/20 11/11/20 11/11/20 09:02 10:45 20:27 RBC RDW Lymph % (Auto) Lymph # (Auto) Seg Neutrophils % PT INR ABG pH 7.483 H POC ABG pCO2 ABG pO2 222.2 H ABG O2 Saturation 99.3 H ABG Hemoglobin 13.7 L ABG Sodium Carbon Dioxide 20 L Glucose 55 L POC Glucose CK-MB (CK-2) Ur Specific Omega 1.045 H 11/11/20 11/11/20 11/11/20 20:34 22:06 23:43 RBC RDW Lymph % (Auto) Lymph # (Auto) Seg Neutrophils % PT INR ABG pH POC ABG pCO2 ABG pO2 ABG O2 Saturation ABG Hemoglobin ABG Sodium Carbon Dioxide Glucose 30 L* POC Glucose 161 H 32 L CK-MB (CK-2) Ur Specific Omega 11/12/20 03:51 RBC RDW Lymph % (Auto) Lymph # (Auto) Seg Neutrophils % PT INR ABG pH 7.485 H POC ABG pCO2 31.2 L ABG pO2 ABG O2 Saturation ABG Hemoglobin ABG Sodium 134.1 L Carbon Dioxide Glucose POC Glucose CK-MB (CK-2) Ur Specific Omega Assessment and Plan 70 yo male with seizure d/o presenting with a noted hypoglycemic episode and then noted by family with another episode where the family found him unresponsive and noted to be in status epilepticus in the ED in the setting of severe hypoglycemia. 1. Status Epilepticus - if stat EEG reveals seizure activity, recommend Ativan 2 mg IV x 1 dose and Fosphenytoin 1200 mg IV x 1 dose w/ maintenance at 100 mg iv q8 and then continuous EEG monitoring via transfer to a facility with continuous eeg monitoring; Keppra 1500 mg IV q12; continue PHB 15 mg po bid; 2. Therapeutic Drug Monitoring - phenobarbital level. 3. Metabolic Encephalopathy - in the setting of acute hypoglycemia, risk of cerbral injury w/ prolonged hypoglycemia. 4. Hypoglycemia - etiology/management per primary team. Kenny Segal MD Neurology
[2020-11-12 09:18] LABS: Hematocrit 42.1 % (35.5-45.6); Hemoglobin 13.7 gm/dl (11.8-15.2); Mean Corpuscular HGB Conc 33 % (32-34); Mean Corpuscular Volume 86 fl (84-94); Platelet Count 179 K/mm3 (140-440); Red Blood Count 4.87 M/mm3 (3.65-5.03); Red Cell Distribution Width 15.9 % (13.2-15.2)
[2020-11-12 09:41] LABS: Alanine Aminotransferase 30 units/L (7-56); Albumin 3.6 g/dL (3.9-5); BUN/Creatinine Ratio 20; Blood Urea Nitrogen 18 mg/dL (9-20); Hemolysis Index 20
[2020-11-12] MEDS: FAMOTIDINE 20 MG/2 ML INJ IV SCH ×2 (10:22→22:06)
[2020-11-12] MEDS: levETIRAcetam 1,500 MG in DEXTROSE 5% IN WATER 100 ML IV SCH ×2 (10:22→22:06)
[2020-11-12] MEDS ORDERED: SODIUM BICARBONATE 325 MG TAB FEEDTUBE PRN (12:00)
[2020-11-12] MEDS ORDERED: SIMPLE SYRUP 15 ML FEEDTUBE PRN ×2 (12:00)
[2020-11-12] MEDS ORDERED: LIPASE 10,500/PROTEASE 25,000/AMYLASE 43,750 (UNITS) DR CAP FEEDTUBE PRN (12:00)
[2020-11-12] MEDS: VANCOMYCIN/NS 1 GM/250 ML 1 GM/250 ML BAG IV SCH (13:02)
--- NOTE | 2020-11-12 13:05 | Progress Note ---
Assessment and Plan Assessment and plan: -Neurology and CCM consulted, appreciate recommendations -EEG pending -IV Keppra, p.o. phenobarbital -Seizure precautions -VAP bundle, wean as tolerated -abx therapy -CIWA protocol -CT head with no acute process DVT/GI prophylaxis: PPI, Lovenox subcu, SCDs to bilateral lower extremities while in bed Dispo: ICU The high probability of a clinically significant, sudden or life threatening deterioration of the [neuro,respiratory] system(s) required my full and direct attention, intervention and personal management. The aggregate critical care time was [35] minutes. This time is in addition to time spent performing reported procedures but includes the following: [x] Data Review and interpretation [x] Patient assessment and monitoring of vital signs [x] Documentation [x] Medication orders and management History Interval history: This is a 60-year-old male with seizure disorder current alcohol and tobacco abuse presents to the hospital on 11/11 after being found unresponsive. On arrival of EMS patient was found to be hypoglycemic and given IV dextrose after which he recovered and refused further care. EMS was called again by family after the patient was found unresponsive and was given Narcan with no change. Patient was noted to have seizure activity and given 7 mg IV Ativan total including 3 from EMS. Patient was loaded with Keppra 2 g and was intubated for airway protection. Patient was found to have metabolic acidosis and hypog lycemia on BMP. Patient was found to be hypothermic and hypertensive in the emergency department. Patient's UDS was positive for barbiturates. Patient was admitted to the hospital service for further work-up with consults to CCM and neurology. SIRS Acute hypoxic respiratory failure s/p Status epilepticus Acute encephalopathy Seizure disorder Lactic acidosis Hypoglycemia EtOH and tobacco abuse Hospitalist Physical - Constitutional Vitals: Temp Pulse Resp BP Pulse Ox 99.0 F 77 12 117/66 100 11/12/20 12:26 11/12/20 08:33 11/12/20 08:33 11/12/20 08:33 11/12/20 08:33 General appearance: Present: no acute distress, well-nourished - EENT Eyes: Present: PERRL - Neck Neck: Absent: masses or JVD, cervical LAD - Respiratory Respiratory effort: normal Respiratory: bilateral: CTA - Cardiovascular Rhythm: regular Heart Sounds: Present: S1 & S2. Absent: systolic murmur, diastolic murmur - Extremities Extremities: no ischemia, pulses intact, pulses symmetrical, No edema, normal temperature, normal color Peripheral Pulses: within normal limits - Abdominal General gastrointestinal: soft, non-tender, non-distended, normal bowel sounds - Integumentary Integumentary: Present: warm, dry - Psychiatric Psychiatric: other (Minimally responsive to painful stimuli) HEART Score - HEART Score Troponin: Troponin T < 0.010 ng/mL (0.00-0.029) 11/11/20 09:02 Results - Labs CBC & Chem 7: 11/12/20 08:14 11/12/20 08:14 Labs: Laboratory Last Values WBC 10.2 K/mm3 (4.5-11.0) 11/12/20 08:14 RBC 4.87 M/mm3 (3.65-5.03) 11/12/20 08:14 Hgb 13.7 gm/dl (11.8-15.2) 11/12/20 08:14 Hct 42.1 % (35.5-45.6) 11/12/20 08:14 MCV 86 fl (84-94) 11/12/20 08:14 MCH 28 pg (28-32) 11/12/20 08:14 MCHC 33 % (32-34) 11/12/20 08:14 RDW 15.9 % (13.2-15.2) H 11/12/20 08:14 Plt Count 179 K/mm3 (140-440) 11/12/20 08:14 Lymph % (Auto) 12.2 % (13.4-35.0) L 11/11/20 09:02 [place] % (Auto) 7.0 % (0.0-7.3) 11/11/20 09:02 Eos % (Auto) 0.1 % (0.0-4.3) 11/11/20 09:02 Baso % (Auto) 0.2 % (0.0-1.8) 11/11/20 09:02 Lymph # (Auto) 1.1 K/mm3 (1.2-5.4) L 11/11/20 09:02 [place] # (Auto) 0.6 K/mm3 (0.0-0.8) 11/11/20 09:02 Eos # (Auto) 0.0 K/mm3 (0.0-0.4) 11/11/20 09:02 Baso # (Auto) 0.0 K/mm3 (0.0-0.1) 11/11/20 09:02 Seg Neutrophils % 80.5 % (40.0-70.0) H 11/11/20 09:02 Seg Neutrophils # 7.0 K/mm3 (1.8-7.7) 11/11/20 09:02 PT 11.5 Sec. (12.2-14.9) L 11/11/20 09:02 INR 0.86 (0.87-1.13) L 11/11/20 09:02 APTT 25.5 Sec. (24.2-36.6) 11/11/20 09:02 Thrombin Time 17.0 Sec. (15.1-19.6) 11/11/20 09:02 ABG pH 7.485 (7.320-7.450) H 11/12/20 03:51 POC ABG pCO2 31.2 mmHg (32.0-48.0) L 11/12/20 03:51 ABG pCO2 33.9 mm Hg 11/11/20 10:45 POC ABG pO2 99.9 mmHg (83-108) 11/12/20 03:51 ABG pO2 222.2 mm Hg (80.0-90.0) H 11/11/20 10:45 POC ABG HCO3 23.0 11/12/20 03:51 ABG HCO3 24.9 mmol/L (20.0-26.0) 11/11/20 10:45 ABG O2 Saturation 97.2 (0-100) 11/12/20 03:51 ABG O2 Content 19.4 (0.0-44) 11/11/20 10:45 POC ABG Base Excess 0.3 11/12/20 03:51 ABG Base Excess 1.9 mmol/L (-2.0-3.0) 11/11/20 10:45 ABG Hemoglobin 13.0 (12.0-17.5) 11/12/20 03:51 ABG Oxyhemoglobin 95.8 (94-98) 11/12/20 03:51 ABG Carboxyhemoglobin 0.6 % (0.0-5.0) 11/11/20 10:45 ABG Methemoglobin 0.3 (0.0-1.5) 11/12/20 03:51 ABG Sodium 134.1 mmol/L (136.0-145.0) L 11/12/20 03:51 ABG Potassium 3.6 mmol/L (3.40-4.50) 11/12/20 03:51 ABG Chloride 105.0 mmol/L (98-107) 11/12/20 03:51 ABG Glucose 95 mg/dL (65-95) 11/12/20 03:51 Oxyhemoglobin 98.5 % (95.0-99.0) 11/11/20 10:45 Carboxyhemoglobin 1.1 (0.5-1.5) 11/12/20 03:51 FiO2 21 % 11/11/20 10:45 FiO2 % 35 11/12/20 03:51 Sodium 138 mmol/L (137-145) 11/12/20 08:14 Potassium 4.2 mmol/L (3.6-5.0) 11/12/20 08:14 Chloride 101.5 mmol/L (98-107) 11/12/20 08:14 Carbon Dioxide 26 mmol/L (22-30) 11/12/20 08:14 Anion Gap 15 mmol/L 11/12/20 08:14 BUN 18 mg/dL (9-20) 11/12/20 08:14 Creatinine 0.9 mg/dL (0.8-1.3) 11/12/20 08:14 Estimated GFR > 60 ml/min 11/12/20 08:14 BUN/Creatinine Ratio 20 % 11/12/20 08:14 Glucose 88 mg/dL (75-100) 11/12/20 08:14 POC Glucose 160 mg/dL (70-105) H 11/12/20 12:21 Hemoglobin A1c 5.4 % (4-6) 11/12/20 07:26 Calcium 9.0 mg/dL (8.4-10.2) 11/12/20 08:14 Magnesium 2.00 mg/dL (1.7-2.3) 11/11/20 09:02 Total Bilirubin 0.70 mg/dL (0.1-1.2) 11/12/20 08:14 AST 45 units/L (5-40) H 11/12/20 08:14 ALT 30 units/L (7-56) 11/12/20 08:14 Alkaline Phosphatase 78 units/L (35-129) 11/12/20 08:14 Ammonia 29.0 umol/L (25-60) 11/12/20 08:47 Total Creatine Kinase 169 units/L (55-170) 11/11/20 09:02 CK-MB (CK-2) 6.6 ng/mL (0.0-4.0) H 11/11/20 09:02 CK-MB (CK-2) Rel Index 3.9 (0-4) 11/11/20 09:02 Troponin T < 0.010 ng/mL (0.00-0.029) 11/11/20 09:02 Total Protein 7.0 g/dL (6.3-8.2) 11/12/20 08:14 Albumin 3.6 g/dL (3.9-5) L 11/12/20 08:14 Albumin/Globulin Ratio 1.1 % 11/12/20 08:14 Arterial Blood Glucose 95 mg/dL (65-95) 11/12/20 03:51 Arterial Blood Ionized Calcium 4.6 mg/dL (4.6-5.3) 11/12/20 03:51 Urine Color Yellow (Yellow) 11/11/20 20:27 Urine Turbidity Clear (Clear) 11/11/20 20:27 Urine pH 6.0 (5.0-7.0) 11/11/20 20:27 Ur Specific [place] 1.045 (1.003-1.030) H 11/11/20 20:27 Urine Protein 100 mg/dl mg/dL (Negative) 11/11/20 20:27 Urine Glucose (UA) Neg mg/dL (Negative) 11/11/20 20:27 Urine Ketones Neg mg/dL (Negative) 11/11/20 20:27 Urine Blood Sm (Negative) 11/11/20 20:27 Urine Nitrite Neg (Negative) 11/11/20 20:27 Urine Bilirubin Neg (Negative) 11/11/20 20:27 Urine Urobilinogen 4.0 mg/dL (<2.0) 11/11/20 20:27 Ur Leukocyte Esterase Neg (Negative) 11/11/20 20:27 Urine WBC (Auto) 1.0 /HPF (0.0-6.0) 11/11/20 20:27 Urine RBC (Auto) 4.0 /HPF (0.0-6.0) 11/11/20 20:27 U Epithel Cells (Auto) 12.0 /HPF (0-13.0) 11/11/20 20:27 Urine Bacteria (Auto) 1+ /HPF (Negative) 11/11/20 20:27 Urine Mucus Few /HPF 11/11/20 20:27 Urine Opiates Screen Negative 11/11/20 20:27 Urine Methadone Screen Negative 11/11/20 20:27 Ur Barbiturates Screen Positive 11/11/20 20:27 Ur Phencyclidine Scrn Negative 11/11/20 20:27 Ur Amphetamines Screen Negative 11/11/20 20:27 Phenobarbital 4.3 ug/mL (15.0-40.0) L 11/12/20 08:47 U Benzodiazepines Scrn Negative 11/11/20 20:27 Urine Cocaine Screen Negative 11/11/20 20:27 U Marijuana (THC) Screen Negative 11/11/20 20:27 Drugs of Abuse Note Disclamer 11/11/20 20:27 Plasma/Serum Alcohol < 0.01 % (0-0.07) 11/11/20 09:02 [place]/IV: Voiding Method Indwelling Catheter Active Medications - Current Medications Current Medications: Generic Name Dose Route Start Last Admin Trade Name Freq PRN Reason Stop Dose Admin Acetaminophen 650 mg 11/11/20 22:58 Acetaminophen 325 Mg Tab PO Q4H PRN Pain MILD(1-3)/Fever >100.5/BAR Albuterol 2.5 mg 11/11/20 23:18 Albuterol 2.5 Mg/3 Ml Nebu IH Q3HRT PRN Wheezing Albuterol/Ipratropium 1 ampul 11/12/20 08:00 11/12/20 08:11 Ipratropium/Albuterol Sulfate 3 Ml Ampul.Neb IH 1 ampul QIDRT [facility] Administration Lipase/Protease/Amylase 1 each 11/12/20 12:00 Lipase 10,500/Protease 25,000/Amylase 43,750 (Units) Cap FEEDTUBE PRN PRN For Clogged Feeding Tube Dextrose 50 ml 11/11/20 22:11 11/12/20 00:48 Dextrose 50% In Water (25gm) 50 Ml Syringe IV 25 ml ONCE PRN Administration Hypoglycemia Protocol Enoxaparin Sodium 40 mg 11/12/20 22:00 Enoxaparin 40 Mg/0.4 Ml Inj SUB-Q QDAY@2200 [facility] Protocol Famotidine 20 mg 11/11/20 23:00 11/12/20 10:22 Famotidine 20 Mg/2 Ml Inj IV 20 mg BID K[facility]K Administration Hydralazine HCl 10 mg 11/12/20 10:30 Hydralazine 20 Mg/1 Ml Inj IV Q4H PRN Hypertension Hydrophilic Ointment 1 applic 11/11/20 09:14 Lip Therapy Vaseline TP Q2HR PRN Dry Lips Sodium Chloride 1,000 mls @ 75 mls/hr 11/11/20 23:00 Nacl 0.9% 1000 Ml IV DIRECT [facility]K Cefepime HCl 2 gm in 100 mls @ 200 mls/hr 11/12/20 00:00 11/12/20 09:00 Cefepime/Ns 2 Gm/100 Ml IV 200 mls/hr Q8H [facility] Administration Protocol Thiamine HCl 100 mg/ Folic 1,011.2 mls @ 125 mls/hr 11/13/20 00:00 Acid 1 mg/ Multivitamins/ IV Minerals 10 ml/ Sodium Q24H [facility] Chloride Vancomycin HCl 1 gm in 250 mls @ 166.667 mls/hr 11/12/20 13:00 Vancomycin/Ns 1 Gm/250 Ml IV Q12H [facility] Levetiracetam 1,500 mg/ 115 mls @ 400 mls/hr 11/12/20 10:00 11/12/20 10:22 Dextrose IV 400 mls/hr Q12HR [facility] Administration Insulin Human Regular 0 units 11/12/20 18:00 Insulin Regular, Human 100 Units/1 Ml SUB-Q Q6H [facility] Protocol Lorazepam 1 mg 11/11/20 22:01 11/12/20 06:40 Lorazepam 2 Mg/Ml Vial IV 1 mg Q2H PRN Administration Seizures Metoclopramide HCl 10 mg 11/11/20 22:58 Metoclopramide 10 Mg/2 Ml Inj IV Q6H PRN Nausea And Vomiting Morphine Sulfate 2 mg 11/11/20 22:58 Morphine 2 Mg/1 Ml Inj IV Q4H PRN Pain, Moderate (4-6) Multi-Ingred Cream/Lotion/Oil/Oint 1 applic 11/11/20 09:14 Mineral Oil/Petrolatum, White Ophth Oint 3.5 Gm OU Q4HR PRN Dry Eye(s) Naloxone HCl 2 mg 11/11/20 08:33 Naloxone 0.4 Mg/1 Ml Inj IV Q2MIN PRN Res Rate </= 8 or 02 SAT < 92% Ondansetron HCl 4 mg 11/11/20 22:58 Ondansetron 4 Mg/2 Ml Inj IV Q3H PRN Nausea And Vomiting Phenobarbital 15 mg 11/11/20 23:45 11/12/20 10:22 Phenobarbital 15 Mg Tab PO 15 mg BID KIRK Administration Simple Syrup 15 ml 11/12/20 12:00 Simple Syrup 15 Ml FEEDTUBE PRN PRN Hypoglycemia Simple Syrup 30 ml 11/12/20 12:00 Simple Syrup 15 Ml FEEDTUBE PRN PRN Hypoglycemia Sodium Bicarbonate 325 mg 11/12/20 12:00 Sodium Bicarbonate 325 Mg Tab FEEDTUBE PRN PRN For Clogged Feeding Tube Sodium Chloride 10 ml 11/11/20 23:00 11/12/20 10:23 Sodium Chloride 0.9% 10 Ml Flush Syringe IV 10 ml BID KIRK Administration Sodium Chloride 10 ml 11/11/20 22:58 Sodium Chloride 0.9% 10 Ml Flush Syringe IV PRN PRN LINE FLUSH Nutrition/Malnutrition Assess - Dietary Evaluation Nutrition/Malnutrition Findings: Nutrition Notes Start: 11/12/20 08:26 Freq: Status: Active Protocol: Document 11/12/20 08:26 AL (Rec: 11/12/20 08:37 AL [id number]) Co-Sign 11/12/20 08:26 MK Nutrition Notes Need for Assessment generated from: MD Order Initial or Follow up Assessment Current Diagnosis Respiratory Failure,Stroke Other Pertinent Diagnosis Seizures Current Diet NPO Labs/Tests BG 30 Pertinent Medications Solumedrol Propofol Height 5 ft 9 in Weight 70 kg [place] Body Weight (kg) 72.72 BMI 22.8 Weight Status Appropriate Subjective/Other Information MD order for evaluation of nutritional intake. Pt is intubated Percent of energy/protein needs met: 0%/0% Burn Absent Trauma Absent Current % PO Negligible Minimum of two criteria No #1 Nutrition Diagnosis Inadequate oral intake Etiology Acute Respiratory Failure As Evidenced by Signs and Symptoms Pt is intubated and unable to consume PO Is patient on ventilator? Yes Is Patient Ambulatory and/or Out of Bed No REE-([facility]-confined to bed) [phone] Calculation Used for Recommendations [facility] Additional Notes Protein: 84-140 g (1.2-2.0 g/ kg) Fluid 1 ml/kcal Nutrition Intervention Change Diet Order: Advance to TF when medically feasible Nutrition Support: Vital AF 1.2 at 60 ml/hr Flush 200 ml q4h Kcal 1,728 Protein (gm) 108 Fluid (mL) 1,167 Goal #1 Advance to TF when medically feasible Anticipated Discharge Needs: Unable to determine at the time Follow-Up By: 11/15/20 Additional Comments F/U for write/manage TF consult, vent status.
--- NOTE | 2020-11-12 15:22 | Consultation ---
History of Present Illness Consult date: 11/12/20 Reason for consult: other (vent ) History of present illness: 11/12/20 70yo M unresponsive intubated Past History Past Medical History: seizures Medications and Allergies Allergies Allergy/AdvReac Type Severity Reaction Status Date / Time No Known Allergies Allergy Verified 02/24/18 09:21 Home Medications Medication Instructions Recorded Confirmed Last Taken Type PHENobarbitaL [PHENobarbital] 15 mg PO BID 30 Days #60 tablet 05/30/20 08/12/20 Unknown Rx levETIRAcetam [Keppra TAB] 500 mg PO BID #60 tablet 05/30/20 08/12/20 Unknown Rx Vitamin B-1 1 tab PO DAILY 08/12/20 08/12/20 Unknown History levETIRAcetam [Keppra TAB] 1,000 mg PO BID 30 Days #60 tab 08/12/20 Unknown Rx levETIRAcetam [Keppra TAB] 1,000 mg PO BID 90 Days #180 tab 10/01/20 Unknown Rx Active Meds: Active Medications Acetaminophen (Acetaminophen 325 Mg Tab) 650 mg PO Q4H PRN PRN Reason: Pain MILD(1-3)/Fever >100.5/BAR Albuterol (Albuterol 2.5 Mg/3 Ml Nebu) 2.5 mg IH Q3HRT PRN PRN Reason: Wheezing Albuterol/Ipratropium (Ipratropium/Albuterol Sulfate 3 Ml Ampul.Neb) 1 ampul IH QIDRT [facility] Last Admin: 11/12/20 13:46 Dose: 1 ampul Documented by: Lipase/Protease/Amylase (Lipase 10,500/Protease 25,000/Amylase 43,750 (Units) Dr Rangel) 1 each FEEDTUBE PRN PRN PRN Reason: For Clogged Feeding Tube Dextrose (Dextrose 50% In Water (25gm) 50 Ml Syringe) 50 ml IV ONCE PRN; Protocol PRN Reason: Hypoglycemia Last Admin: 11/12/20 00:48 Dose: 25 ml Documented by: Enoxaparin Sodium (Enoxaparin 40 Mg/0.4 Ml Inj) 40 mg SUB-Q QDAY@2200 [facility]; Protocol Famotidine (Famotidine 20 Mg/2 Ml Inj) 20 mg IV BID [facility] Last Admin: 11/12/20 10:22 Dose: 20 mg Documented by: Hydralazine HCl (Hydralazine 20 Mg/1 Ml Inj) 10 mg IV Q4H PRN PRN Reason: Hypertension Hydrophilic Ointment (Lip Therapy Vaseline) 1 applic TP Q2HR PRN PRN Reason: Dry Lips Sodium Chloride (Nacl 0.9% 1000 Ml) 1,000 mls @ 75 mls/hr IV DIRECT KIRK Cefepime HCl (Cefepime/Ns 2 Gm/100 Ml) 2 gm in 100 mls @ 200 mls/hr IV Q8H [facility]; Protocol Last Admin: 11/12/20 09:00 Dose: 200 mls/hr Documented by: Thiamine HCl 100 mg/ Folic Acid 1 mg/ Multivitamins/Minerals 10 ml/ Sodium Chloride 1,011.2 mls @ 125 mls/hr IV Q24H [facility] Vancomycin HCl (Vancomycin/Ns 1 Gm/250 Ml) 1 gm in 250 mls @ 166.667 mls/hr IV Q12H [facility] Last Admin: 11/12/20 13:02 Dose: 166.667 mls/hr Documented by: Levetiracetam 1,500 mg/ (Dextrose) 115 mls @ 400 mls/hr IV Q12HR [facility] Last Admin: 11/12/20 10:22 Dose: 400 mls/hr Documented by: Insulin Human Regular (Insulin Regular, Human 100 Units/1 Ml) 0 units SUB-Q Q6H [facility]; Protocol Metoclopramide HCl (Metoclopramide 10 Mg/2 Ml Inj) 10 mg IV Q6H PRN PRN Reason: Nausea And Vomiting Multi-Ingred Cream/Lotion/Oil/Oint (Mineral Oil/Petrolatum, White Ophth Oint 3.5 Gm) 1 applic OU Q4HR PRN PRN Reason: Dry Eye(s) Naloxone HCl (Naloxone 0.4 Mg/1 Ml Inj) 2 mg IV Q2MIN PRN PRN Reason: Res Rate </= 8 or 02 SAT < 92% Ondansetron HCl (Ondansetron 4 Mg/2 Ml Inj) 4 mg IV Q3H PRN PRN Reason: Nausea And Vomiting Phenobarbital (Phenobarbital 15 Mg Tab) 15 mg PO BID [facility] Last Admin: 11/12/20 10:22 Dose: 15 mg Documented by: Simple Syrup (Simple Syrup 15 Ml) 15 ml FEEDTUBE PRN PRN PRN Reason: Hypoglycemia Simple Syrup (Simple Syrup 15 Ml) 30 ml FEEDTUBE PRN PRN PRN Reason: Hypoglycemia Sodium Bicarbonate (Sodium Bicarbonate 325 Mg Tab) 325 mg FEEDTUBE PRN PRN PRN Reason: For Clogged Feeding Tube Sodium Chloride (Sodium Chloride 0.9% 10 Ml Flush Syringe) 10 ml IV BID [facility] Last Admin: 11/12/20 10:23 Dose: 10 ml Documented by: Sodium Chloride (Sodium Chloride 0.9% 10 Ml Flush Syringe) 10 ml IV PRN PRN PRN Reason: LINE FLUSH Physical Examination Vital signs: Vital Signs Pulse Resp BP Pulse Ox 84 11 L 192/98 96 11/11/20 08:46 11/11/20 08:46 11/11/20 08:46 11/11/20 08:46 General appearance: comatose Ascultation: Bilateral: clear Gastrointestinal: hypoactive bowel sounds non-focal exam, unable to assess Results - Laboratory Findings CBC and BMP: 11/12/20 08:14 11/12/20 08:14 ABG ABG pH 7.485 (7.320-7.450) H 11/12/20 03:51 POC ABG pCO2 31.2 mmHg (32.0-48.0) L 11/12/20 03:51 ABG pCO2 33.9 mm Hg 11/11/20 10:45 POC ABG pO2 99.9 mmHg (83-108) 11/12/20 03:51 ABG pO2 222.2 mm Hg (80.0-90.0) H 11/11/20 10:45 POC ABG HCO3 23.0 11/12/20 03:51 ABG O2 Saturation 97.2 (0-100) 11/12/20 03:51 PT/INR, D-dimer PT 11.5 Sec. (12.2-14.9) L 11/11/20 09:02 INR 0.86 (0.87-1.13) L 11/11/20 09:02 Abnormal lab findings: Abnormal Labs 11/11/20 11/11/20 11/11/20 09:02 09:02 09:02 RBC 5.16 H RDW 16.1 H Lymph % (Auto) 12.2 L Lymph # (Auto) 1.1 L Seg Neutrophils % 80.5 H PT 11.5 L INR 0.86 L ABG pH POC ABG pCO2 ABG pO2 ABG O2 Saturation ABG Hemoglobin ABG Sodium Carbon Dioxide Glucose POC Glucose AST CK-MB (CK-2) 6.6 H Albumin Ur Specific [place] Phenobarbital 11/11/20 11/11/20 11/11/20 09:02 10:45 20:27 RBC RDW Lymph % (Auto) Lymph # (Auto) Seg Neutrophils % PT INR ABG pH 7.483 H POC ABG pCO2 ABG pO2 222.2 H ABG O2 Saturation 99.3 H ABG Hemoglobin 13.7 L ABG Sodium Carbon Dioxide 20 L Glucose 55 L POC Glucose AST CK-MB (CK-2) Albumin Ur Specific [place] 1.045 H Phenobarbital 11/11/20 11/11/20 11/11/20 20:34 22:06 23:43 RBC RDW Lymph % (Auto) Lymph # (Auto) Seg Neutrophils % PT INR ABG pH POC ABG pCO2 ABG pO2 ABG O2 Saturation ABG Hemoglobin ABG Sodium Carbon Dioxide Glucose 30 L* POC Glucose 161 H 32 L AST CK-MB (CK-2) Albumin Ur Specific [place] Phenobarbital 11/12/20 11/12/20 11/12/20 03:51 08:14 08:14 RBC RDW 15.9 H Lymph % (Auto) Lymph # (Auto) Seg Neutrophils % PT INR ABG pH 7.485 H POC ABG pCO2 31.2 L ABG pO2 ABG O2 Saturation ABG Hemoglobin ABG Sodium 134.1 L Carbon Dioxide Glucose POC Glucose AST 45 H CK-MB (CK-2) Albumin 3.6 L Ur Specific [place] Phenobarbital 11/12/20 11/12/20 11/12/20 08:47 09:45 12:21 RBC RDW Lymph % (Auto) Lymph # (Auto) Seg Neutrophils % PT INR ABG pH POC ABG pCO2 ABG pO2 ABG O2 Saturation ABG Hemoglobin ABG Sodium Carbon Dioxide Glucose POC Glucose 115 H 160 H AST CK-MB (CK-2) Albumin Ur Specific [place] Phenobarbital 4.3 L - Diagnostic Findings Chest x-ray: image reviewed (ET clear ) Assessment and Plan 11/12/20 encephalopathy w/up in progress on vent for airway protection Still unresponsive cont current mgmt
--- NOTE | 2020-11-12 16:05 | XRay Report ---
CHEST 1 VIEW 11/11/2020 8:51 AM INDICATION / CLINICAL INFORMATION: weakness. COMPARISON: 07/02/2015 FINDINGS: SUPPORT DEVICES: None. HEART / MEDIASTINUM: No significant abnormality. LUNGS / PLEURA: No significant pulmonary or pleural abnormality. No pneumothorax. ADDITIONAL FINDINGS: No significant additional findings. IMPRESSION: 1. No acute findings. Signer Name: Polo Tobar MD Signed: 11/11/2020 10:02 AM Workstation Name: [id number]
[2020-11-12] MEDS: ENOXAPARIN 40 MG/0.4 ML INJ SUB-Q SCH (22:06)
[2020-11-13] MEDS ORDERED: MULTIVITAMINS 5 ML ORAL LIQUID PO SCH
[2020-11-13] MEDS ORDERED: THIAMINE 100 MG, FOLIC ACID 1 MG, MULTIPLE VITAMIN INJ, ADULT 10 ML in SODIUM CHLORIDE ... IV SCH
[2020-11-13] MEDS: THIAMINE 100 MG, FOLIC ACID 1 MG in SODIUM CHLORIDE 0.9% 1000 ML 1,000 ML IV SCH (00:26)
[2020-11-13] MEDS: VANCOMYCIN/NS 1 GM/250 ML 1 GM/250 ML BAG IV SCH (00:26)
[2020-11-13] MEDS: CEFEPIME/NS 2 GM/100 ML 2 GM/100 ML BAG IV SCH ×2 (00:26→09:00)
[2020-11-13] MEDS: INSULIN REGULAR, HUMAN 100 UNITS/1 ML SUB-Q SCH ×4 (00:27→18:49)
[2020-11-13] MEDS: MULTIVITAMINS ,THERAPEUTIC TAB PO SCH (01:14)
--- NOTE | 2020-11-13 05:28 | XRay Report ---
XR chest 1V ap INDICATION / CLINICAL INFORMATION: follow up respiratory failure. COMPARISON: Radiograph from yesterday. FINDINGS: SUPPORT DEVICES: Unchanged. HEART / MEDIASTINUM: Unchanged. LUNGS / PLEURA: Lung parenchyma is not significantly changed. No pneumothorax. ADDITIONAL FINDINGS: Remote rib fractures are unchanged.. IMPRESSION: 1. No significant interval change. Lungs are clear. Signer Name: Mitch Schaffer MD Signed: 11/13/2020 5:24 AM Workstation Name: [id number]
[2020-11-13 06:10] LABS: BUN/Creatinine Ratio 28; Blood Urea Nitrogen 25 mg/dL (9-20); Calcium 8.4 mg/dL (8.4-10.2); Hemolysis Index 3
[2020-11-13] MEDS: IPRATROPIUM/ALBUTEROL SULFATE 3 ML AMPUL.NEB IH SCH ×4 (08:06→20:58)
[2020-11-13] MEDS: levETIRAcetam 1,500 MG in DEXTROSE 5% IN WATER 100 ML IV SCH ×2 (10:05→21:21)
[2020-11-13] MEDS: PHENobarbital 15 MG TAB PO SCH ×2 (10:06→21:22)
[2020-11-13] MEDS: FAMOTIDINE 20 MG/2 ML INJ IV SCH ×2 (10:06→21:22)
[2020-11-13] MEDS: SODIUM CHLORIDE 0.9% 1000 ML 1,000 ML IV SCH ×2 (11:00→18:49)
--- NOTE | 2020-11-13 11:24 | Progress Note ---
Assessment and Plan 70 y/o male with acute respiratory failure secondary to seizure activity. 1. Folllow up EEG read 2. No sedation 3. PSV as tolerated 4. Guarded prognosis. CCT 31 minutes. Subjective Date of service: 11/13/20 Interval history: No acute events. Did not respond to me this am but per nursing did respond to some painful stimuli. Not on any sedation. Had EEG done yesterday but not officially read. No status though per report from biomedical equipment tech and nursing. Neurology note reviewed from yesterday. Objective Vital Signs - 12hr 11/12/20 11/12/20 11/12/20 23:30 23:38 23:40 Temperature Pulse Rate 73 74 69 Pulse Rate [ Anterior Bilateral Throughout] Pulse Rate [ From Monitor] Respiratory 18 18 18 Rate Respiratory Rate [Anterior Bilateral Throughout] Blood Pressure 118/61 118/61 118/61 O2 Sat by Pulse 100 100 100 Oximetry 11/12/20 11/13/20 11/13/20 23:50 00:00 00:10 Temperature 99.4 F Pulse Rate 71 72 69 Pulse Rate [ Anterior Bilateral Throughout] Pulse Rate [ 74 From Monitor] Respiratory 18 17 18 Rate Respiratory Rate [Anterior Bilateral Throughout] Blood Pressure 141/75 129/66 129/66 O2 Sat by Pulse 100 100 100 Oximetry 11/13/20 11/13/20 11/13/20 00:20 00:30 00:40 Temperature Pulse Rate 69 69 70 Pulse Rate [ Anterior Bilateral Throughout] Pulse Rate [ From Monitor] Respiratory 17 18 17 Rate Respiratory Rate [Anterior Bilateral Throughout] Blood Pressure 130/64 127/62 127/62 O2 Sat by Pulse 100 100 100 Oximetry 11/13/20 11/13/20 11/13/20 00:50 01:00 01:10 Temperature Pulse Rate 83 73 75 Pulse Rate [ Anterior Bilateral Throughout] Pulse Rate [ From Monitor] Respiratory 15 18 17 Rate Respiratory Rate [Anterior Bilateral Throughout] Blood Pressure 138/64 123/61 123/61 O2 Sat by Pulse 100 100 100 Oximetry 11/13/20 11/13/20 11/13/20 01:20 01:30 01:40 Temperature Pulse Rate 79 86 107 H Pulse Rate [ Anterior Bilateral Throughout] Pulse Rate [ From Monitor] Respiratory 12 18 19 Rate Respiratory Rate [Anterior Bilateral Throughout] Blood Pressure 120/61 120/61 142/80 O2 Sat by Pulse 100 100 100 Oximetry 11/13/20 11/13/20 11/13/20 01:50 02:00 02:10 Temperature Pulse Rate 79 78 69 Pulse Rate [ Anterior Bilateral Throughout] Pulse Rate [ From Monitor] Respiratory 18 18 17 Rate Respiratory Rate [Anterior Bilateral Throughout] Blood Pressure 133/70 141/72 141/72 O2 Sat by Pulse 100 100 100 Oximetry 11/13/20 11/13/20 11/13/20 02:20 02:30 02:40 Temperature Pulse Rate 68 72 68 Pulse Rate [ Anterior Bilateral Throughout] Pulse Rate [ From Monitor] Respiratory 18 18 18 Rate Respiratory Rate [Anterior Bilateral Throughout] Blood Pressure 133/66 131/67 131/67 O2 Sat by Pulse 100 100 100 Oximetry 11/13/20 11/13/20 11/13/20 02:50 03:00 03:10 Temperature Pulse Rate 74 74 70 Pulse Rate [ Anterior Bilateral Throughout] Pulse Rate [ From Monitor] Respiratory 17 17 18 Rate Respiratory Rate [Anterior Bilateral Throughout] Blood Pressure 136/68 148/76 148/76 O2 Sat by Pulse 100 100 100 Oximetry 11/13/20 11/13/20 11/13/20 03:20 03:30 03:34 Temperature 100.2 F H Pulse Rate 69 68 Pulse Rate [ Anterior Bilateral Throughout] Pulse Rate [ From Monitor] Respiratory 18 18 Rate Respiratory Rate [Anterior Bilateral Throughout] Blood Pressure 135/66 135/66 O2 Sat by Pulse 100 100 Oximetry 11/13/20 11/13/20 11/13/20 03:40 03:50 04:00 Temperature Pulse Rate 68 76 68 Pulse Rate [ Anterior Bilateral Throughout] Pulse Rate [ 70 From Monitor] Respiratory 17 16 18 Rate Respiratory Rate [Anterior Bilateral Throughout] Blood Pressure 129/63 130/65 139/70 O2 Sat by Pulse 100 100 100 Oximetry 11/13/20 11/13/20 11/13/20 04:10 04:20 04:30 Temperature Pulse Rate 77 75 72 Pulse Rate [ Anterior Bilateral Throughout] Pulse Rate [ From Monitor] Respiratory 16 18 18 Rate Respiratory Rate [Anterior Bilateral Throughout] Blood Pressure 130/65 144/75 144/75 O2 Sat by Pulse 100 100 100 Oximetry 11/13/20 11/13/20 11/13/20 04:40 04:50 05:00 Temperature Pulse Rate 80 82 72 Pulse Rate [ Anterior Bilateral Throughout] Pulse Rate [ From Monitor] Respiratory 16 17 17 Rate Respiratory Rate [Anterior Bilateral Throughout] Blood Pressure 135/73 139/70 133/69 O2 Sat by Pulse 92 100 100 Oximetry 11/13/20 11/13/20 11/13/20 05:10 05:20 05:30 Temperature Pulse Rate 65 68 66 Pulse Rate [ Anterior Bilateral Throughout] Pulse Rate [ From Monitor] Respiratory 19 18 18 Rate Respiratory Rate [Anterior Bilateral Throughout] Blood Pressure 133/69 137/71 137/71 O2 Sat by Pulse 100 100 100 Oximetry 11/13/20 11/13/20 11/13/20 05:40 05:50 06:00 Temperature Pulse Rate 66 69 69 Pulse Rate [ Anterior Bilateral Throughout] Pulse Rate [ From Monitor] Respiratory 18 18 18 Rate Respiratory Rate [Anterior Bilateral Throughout] Blood Pressure 140/69 144/78 144/78 O2 Sat by Pulse 100 100 100 Oximetry 11/13/20 11/13/20 11/13/20 06:10 06:20 06:30 Temperature Pulse Rate 87 112 H 72 Pulse Rate [ Anterior Bilateral Throughout] Pulse Rate [ From Monitor] Respiratory 11 L 19 18 Rate Respiratory Rate [Anterior Bilateral Throughout] Blood Pressure 133/67 161/91 128/74 O2 Sat by Pulse 100 100 99 Oximetry 11/13/20 11/13/20 11/13/20 06:40 06:50 07:00 Temperature Pulse Rate 67 63 65 Pulse Rate [ Anterior Bilateral Throughout] Pulse Rate [ From Monitor] Respiratory 18 18 18 Rate Respiratory Rate [Anterior Bilateral Throughout] Blood Pressure 128/74 131/80 146/76 O2 Sat by Pulse 100 100 100 Oximetry 11/13/20 11/13/20 11/13/20 07:10 07:20 07:30 Temperature Pulse Rate 65 68 63 Pulse Rate [ Anterior Bilateral Throughout] Pulse Rate [ From Monitor] Respiratory 18 17 18 Rate Respiratory Rate [Anterior Bilateral Throughout] Blood Pressure 146/76 144/74 144/74 O2 Sat by Pulse 100 100 100 Oximetry 11/13/20 11/13/20 11/13/20 07:40 07:50 07:54 Temperature Pulse Rate 63 62 61 Pulse Rate [ Anterior Bilateral Throughout] Pulse Rate [ From Monitor] Respiratory 18 18 Rate Respiratory Rate [Anterior Bilateral Throughout] Blood Pressure 128/65 139/68 139/68 O2 Sat by Pulse 100 100 100 Oximetry 11/13/20 11/13/20 11/13/20 08:00 08:06 08:10 Temperature 98.1 F Pulse Rate 67 74 Pulse Rate [ 59 L Anterior Bilateral Throughout] Pulse Rate [ 64 From Monitor] Respiratory 18 16 Rate Respiratory 18 Rate [Anterior Bilateral Throughout] Blood Pressure 135/72 135/72 O2 Sat by Pulse 100 100 Oximetry 11/13/20 11/13/20 11/13/20 08:20 08:30 08:40 Temperature Pulse Rate 61 62 64 Pulse Rate [ Anterior Bilateral Throughout] Pulse Rate [ From Monitor] Respiratory 18 18 19 Rate Respiratory Rate [Anterior Bilateral Throughout] Blood Pressure 139/68 145/71 145/71 O2 Sat by Pulse 100 100 100 Oximetry 11/13/20 11/13/20 11/13/20 08:50 09:00 09:10 Temperature Pulse Rate 68 64 65 Pulse Rate [ Anterior Bilateral Throughout] Pulse Rate [ From Monitor] Respiratory 18 18 18 Rate Respiratory Rate [Anterior Bilateral Throughout] Blood Pressure 144/72 144/72 147/72 O2 Sat by Pulse 100 100 100 Oximetry 11/13/20 11/13/20 11/13/20 09:20 09:30 09:40 Temperature Pulse Rate 76 72 Pulse Rate [ Anterior Bilateral Throughout] Pulse Rate [ From Monitor] Respiratory 16 16 18 Rate Respiratory Rate [Anterior Bilateral Throughout] Blood Pressure 147/74 147/74 147/74 O2 Sat by Pulse 100 100 100 Oximetry 11/13/20 11/13/20 11/13/20 09:50 10:00 10:10 Temperature Pulse Rate 74 63 73 Pulse Rate [ Anterior Bilateral Throughout] Pulse Rate [ From Monitor] Respiratory 14 18 16 Rate Respiratory Rate [Anterior Bilateral Throughout] Blood Pressure 147/74 147/74 147/74 O2 Sat by Pulse 100 100 100 Oximetry 11/13/20 11/13/20 11/13/20 10:20 10:30 10:40 Temperature Pulse Rate 64 67 65 Pulse Rate [ Anterior Bilateral Throughout] Pulse Rate [ From Monitor] Respiratory 18 18 18 Rate Respiratory Rate [Anterior Bilateral Throughout] Blood Pressure 147/74 147/74 147/74 O2 Sat by Pulse 100 100 100 Oximetry 11/13/20 10:50 Temperature Pulse Rate 65 Pulse Rate [ Anterior Bilateral Throughout] Pulse Rate [ From Monitor] Respiratory 18 Rate Respiratory Rate [Anterior Bilateral Throughout] Blood Pressure 147/74 O2 Sat by Pulse 100 Oximetry Constitutional: comatose Ascultation: Bilateral: clear Gastrointestinal: hypoactive bowel sounds Neurologic: non-focal exam, unable to assess CBC and BMP: 11/12/20 08:14 11/13/20 04:38 ABG, PT/INR, D-dimer: ABG ABG pH 7.416 (7.320-7.450) 11/13/20 03:56 POC ABG pCO2 36.3 mmHg (32.0-48.0) 11/13/20 03:56 ABG pCO2 33.9 mm Hg 11/11/20 10:45 POC ABG pO2 124.2 mmHg (83-108) H 11/13/20 03:56 ABG pO2 222.2 mm Hg (80.0-90.0) H 11/11/20 10:45 POC ABG HCO3 22.8 11/13/20 03:56 ABG O2 Saturation 97.6 (0-100) 11/13/20 03:56 PT/INR, D-dimer PT 11.5 Sec. (12.2-14.9) L 11/11/20 09:02 INR 0.86 (0.87-1.13) L 11/11/20 09:02 Abnormal lab findings: Abnormal Labs 11/11/20 11/11/20 11/11/20 09:02 09:02 09:02 RBC 5.16 H RDW 16.1 H Lymph % (Auto) 12.2 L Lymph # (Auto) 1.1 L Seg Neutrophils % 80.5 H PT 11.5 L INR 0.86 L ABG pH POC ABG pCO2 POC ABG pO2 ABG pO2 ABG O2 Saturation ABG Hemoglobin ABG Sodium ABG Glucose Sodium Carbon Dioxide BUN Glucose POC Glucose AST CK-MB (CK-2) 6.6 H Albumin Arterial Blood Glucose Ur Specific [place] Phenobarbital 11/11/20 11/11/20 11/11/20 09:02 10:45 20:27 RBC RDW Lymph % (Auto) Lymph # (Auto) Seg Neutrophils % PT INR ABG pH 7.483 H POC ABG pCO2 POC ABG pO2 ABG pO2 222.2 H ABG O2 Saturation 99.3 H ABG Hemoglobin 13.7 L ABG Sodium ABG Glucose Sodium Carbon Dioxide 20 L BUN Glucose 55 L POC Glucose AST CK-MB (CK-2) Albumin Arterial Blood Glucose Ur Specific [place] 1.045 H Phenobarbital 11/11/20 11/11/20 11/11/20 20:34 22:06 23:43 RBC RDW Lymph % (Auto) Lymph # (Auto) Seg Neutrophils % PT INR ABG pH POC ABG pCO2 POC ABG pO2 ABG pO2 ABG O2 Saturation ABG Hemoglobin ABG Sodium ABG Glucose Sodium Carbon Dioxide BUN Glucose 30 L* POC Glucose 161 H 32 L AST CK-MB (CK-2) Albumin Arterial Blood Glucose Ur Specific [place] Phenobarbital 11/12/20 11/12/20 11/12/20 03:51 08:14 08:14 RBC RDW 15.9 H Lymph % (Auto) Lymph # (Auto) Seg Neutrophils % PT INR ABG pH 7.485 H POC ABG pCO2 31.2 L POC ABG pO2 ABG pO2 ABG O2 Saturation ABG Hemoglobin ABG Sodium 134.1 L ABG Glucose Sodium Carbon Dioxide BUN Glucose POC Glucose AST 45 H CK-MB (CK-2) Albumin 3.6 L Arterial Blood Glucose Ur Specific [place] Phenobarbital 11/12/20 11/12/20 11/12/20 08:47 09:45 12:21 RBC RDW Lymph % (Auto) Lymph # (Auto) Seg Neutrophils % PT INR ABG pH POC ABG pCO2 POC ABG pO2 ABG pO2 ABG O2 Saturation ABG Hemoglobin ABG Sodium ABG Glucose Sodium Carbon Dioxide BUN Glucose POC Glucose 115 H 160 H AST CK-MB (CK-2) Albumin Arterial Blood Glucose Ur Specific [place] Phenobarbital 4.3 L 11/12/20 11/12/20 11/13/20 17:42 22:07 03:56 RBC RDW Lymph % (Auto) Lymph # (Auto) Seg Neutrophils % PT INR ABG pH POC ABG pCO2 POC ABG pO2 124.2 H ABG pO2 ABG O2 Saturation ABG Hemoglobin ABG Sodium 134.0 L ABG Glucose 131 H Sodium Carbon Dioxide BUN Glucose POC Glucose 187 H 152 H AST CK-MB (CK-2) Albumin Arterial Blood Glucose 131 H Ur Specific [place] Phenobarbital 11/13/20 04:38 RBC RDW Lymph % (Auto) Lymph # (Auto) Seg Neutrophils % PT INR ABG pH POC ABG pCO2 POC ABG pO2 ABG pO2 ABG O2 Saturation ABG Hemoglobin ABG Sodium ABG Glucose Sodium 136 L Carbon Dioxide BUN 25 H Glucose 123 H POC Glucose AST CK-MB (CK-2) Albumin Arterial Blood Glucose Ur Specific [place] Phenobarbital
--- NOTE | 2020-11-13 11:27 | Progress Note ---
Assessment and Plan Assessment and plan: #Acute hypoxic respiratory failure Now on mechanical ventilation #Seizure disorder Patient reportedly had status epilepticus Started on Keppra and phenobarbital CT head negative Neurology following EEG pending. Patient may need transfer to a tertiary institution for continuous EEG monitoring if EEG shows seizures #SIRS Etiology unknown-urinalysis negative, chest x-ray also negative COVID-19 test negative Discontinue to biotics for now monitor #Hypoglycemia Resolved Monitor blood glucose closely Enteral feeds #Tobacco abuse Needs tobacco abuse counseling when extubated #DVT prophylaxis-SCDs, Lovenox #GI prophylaxis-PPIs Critical care statement The high probability of a clinically significant, sudden or life threatening deterioration of the [neuro,respiratory] system(s) required my full and direct attention, intervention and personal management. The aggregate critical care time was [35] minutes. This time is in addition to time spent performing reported procedures but includes the following: [x] Data Review and interpretation [x] Patient assessment and monitoring of vital signs [x] Documentation [x] Medication orders and management History Interval history: This is a 60-year-old male with seizure disorder current alcohol and tobacco abuse presents to the hospital on 11/11 after being found unresponsive. On arrival of EMS patient was found to be hypoglycemic and given IV dextrose after which he recovered and refused further care. EMS was called again by family after the patient was found unresponsive and was given Narcan with no change. Patient was noted to have seizure activity and given 7 mg IV Ativan total including 3 from EMS. Patient was loaded with Keppra 2 g and was intubated for airway protection. Patient was found to have metabolic acidosis and hypoglycemia on BMP. Patient was found to be hypothermic and hypertensive in the emergency department. Patient's UDS was positive for barbiturates. Patient was admitted to the hospital service for further work-up with consults to [facility] and neurology. 11/12. Patient remains intubated. On Keppra and phenobarbital. Neurology evaluation appreciated. EEG ordered. May need transfer to tertiary care for continuous EEG pending EEG results. 11/13. Remains intubated and on antiseizure medications. EEG has been performed but results are pending. Neurology on board Hospitalist Physical - Physical exam Narrative exam: VITAL SIGNS: Reviewed. GENERAL: Intubated HEAD: No signs of head trauma. EYES: Pupils are equal. Extraocular motions intact. MOUTH: Oropharynx is normal. NECK: No adenopathy, no JVD. CHEST: Chest with diminished breath sounds bilaterally. No wheezes, rales, or rhonchi. CARDIAC: normal S1 and S2, without murmurs, gallops, or rubs. ABDOMEN: Soft, non tender and non distended. No rebound or guarding, and no masses palpated. Bowel Sounds normal. MUSCULOSKELETAL: No edema NEUROLOGIC EXAM: Intubated SKIN: No obvious lesions - Constitutional Vitals: Temp Pulse Resp BP Pulse Ox 98.1 F 65 18 147/74 100 11/13/20 08:00 11/13/20 10:50 11/13/20 10:50 11/13/20 10:50 11/13/20 10:50 HEART Score - HEART Score Troponin: Troponin T < 0.010 ng/mL (0.00-0.029) 11/11/20 09:02 Results - Labs CBC & Chem 7: 11/12/20 08:14 11/13/20 04:38 Labs: Laboratory Last Values WBC 10.2 K/mm3 (4.5-11.0) 11/12/20 08:14 RBC 4.87 M/mm3 (3.65-5.03) 11/12/20 08:14 Hgb 13.7 gm/dl (11.8-15.2) 11/12/20 08:14 Hct 42.1 % (35.5-45.6) 11/12/20 08:14 MCV 86 fl (84-94) 11/12/20 08:14 MCH 28 pg (28-32) 11/12/20 08:14 MCHC 33 % (32-34) 11/12/20 08:14 RDW 15.9 % (13.2-15.2) H 11/12/20 08:14 Plt Count 179 K/mm3 (140-440) 11/12/20 08:14 Lymph % (Auto) 12.2 % (13.4-35.0) L 11/11/20 09:02 [place] % (Auto) 7.0 % (0.0-7.3) 11/11/20 09:02 Eos % (Auto) 0.1 % (0.0-4.3) 11/11/20 09:02 Baso % (Auto) 0.2 % (0.0-1.8) 11/11/20 09:02 Lymph # (Auto) 1.1 K/mm3 (1.2-5.4) L 11/11/20 09:02 [place] # (Auto) 0.6 K/mm3 (0.0-0.8) 11/11/20 09:02 Eos # (Auto) 0.0 K/mm3 (0.0-0.4) 11/11/20 09:02 Baso # (Auto) 0.0 K/mm3 (0.0-0.1) 11/11/20 09:02 Seg Neutrophils % 80.5 % (40.0-70.0) H 11/11/20 09:02 Seg Neutrophils # 7.0 K/mm3 (1.8-7.7) 11/11/20 09:02 PT 11.5 Sec. (12.2-14.9) L 11/11/20 09:02 INR 0.86 (0.87-1.13) L 11/11/20 09:02 APTT 25.5 Sec. (24.2-36.6) 11/11/20 09:02 Thrombin Time 17.0 Sec. (15.1-19.6) 11/11/20 09:02 ABG pH 7.416 (7.320-7.450) 11/13/20 03:56 POC ABG pCO2 36.3 mmHg (32.0-48.0) 11/13/20 03:56 ABG pCO2 33.9 mm Hg 11/11/20 10:45 POC ABG pO2 124.2 mmHg (83-108) H 11/13/20 03:56 ABG pO2 222.2 mm Hg (80.0-90.0) H 11/11/20 10:45 POC ABG HCO3 22.8 11/13/20 03:56 ABG HCO3 24.9 mmol/L (20.0-26.0) 11/11/20 10:45 ABG O2 Saturation 97.6 (0-100) 11/13/20 03:56 ABG O2 Content 19.4 (0.0-44) 11/11/20 10:45 POC ABG Base Excess -1.3 11/13/20 03:56 ABG Base Excess 1.9 mmol/L (-2.0-3.0) 11/11/20 10:45 ABG Hemoglobin 12.4 (12.0-17.5) 11/13/20 03:56 ABG Oxyhemoglobin 95.8 (94-98) 11/12/20 03:51 ABG Carboxyhemoglobin 0.6 % (0.0-5.0) 11/11/20 10:45 ABG Methemoglobin 0.3 (0.0-1.5) 11/12/20 03:51 ABG Sodium 134.0 mmol/L (136.0-145.0) L 11/13/20 03:56 ABG Potassium 3.8 mmol/L (3.40-4.50) 11/13/20 03:56 ABG Chloride 106.0 mmol/L (98-107) 11/13/20 03:56 ABG Glucose 131 mg/dL (65-95) H 11/13/20 03:56 Oxyhemoglobin 98.5 % (95.0-99.0) 11/11/20 10:45 Carboxyhemoglobin 1.1 (0.5-1.5) 11/12/20 03:51 FiO2 21 % 11/11/20 10:45 FiO2 % 30 11/13/20 03:56 Sodium 136 mmol/L (137-145) L 11/13/20 04:38 Potassium 4.2 mmol/L (3.6-5.0) 11/13/20 04:38 Chloride 102.6 mmol/L (98-107) 11/13/20 04:38 Carbon Dioxide 23 mmol/L (22-30) 11/13/20 04:38 Anion Gap 15 mmol/L 11/13/20 04:38 BUN 25 mg/dL (9-20) H 11/13/20 04:38 Creatinine 0.9 mg/dL (0.8-1.3) 11/13/20 04:38 Estimated GFR > 60 ml/min 11/13/20 04:38 BUN/Creatinine Ratio 28 % 11/13/20 04:38 Glucose 123 mg/dL (75-100) H 11/13/20 04:38 POC Glucose 105 mg/dL (70-105) 11/13/20 10:55 Hemoglobin A1c 5.4 % (4-6) 11/12/20 07:26 Calcium 8.4 mg/dL (8.4-10.2) 11/13/20 04:38 Magnesium 2.00 mg/dL (1.7-2.3) 11/11/20 09:02 Total Bilirubin 0.70 mg/dL (0.1-1.2) 11/12/20 08:14 AST 45 units/L (5-40) H 11/12/20 08:14 ALT 30 units/L (7-56) 11/12/20 08:14 Alkaline Phosphatase 78 units/L (35-129) 11/12/20 08:14 Ammonia 29.0 umol/L (25-60) 11/12/20 08:47 Total Creatine Kinase 169 units/L (55-170) 11/11/20 09:02 CK-MB (CK-2) 6.6 ng/mL (0.0-4.0) H 11/11/20 09:02 CK-MB (CK-2) Rel Index 3.9 (0-4) 11/11/20 09:02 Troponin T < 0.010 ng/mL (0.00-0.029) 11/11/20 09:02 Total Protein 7.0 g/dL (6.3-8.2) 11/12/20 08:14 Albumin 3.6 g/dL (3.9-5) L 11/12/20 08:14 Albumin/Globulin Ratio 1.1 % 11/12/20 08:14 Arterial Blood Glucose 131 mg/dL (65-95) H 11/13/20 03:56 Arterial Blood Ionized Calcium 4.8 mg/dL (4.6-5.3) 11/13/20 03:56 Urine Color Yellow (Yellow) 11/11/20 20:27 Urine Turbidity Clear (Clear) 11/11/20 20:27 Urine pH 6.0 (5.0-7.0) 11/11/20 20:27 Ur Specific [place] 1.045 (1.003-1.030) H 11/11/20 20:27 Urine Protein 100 mg/dl mg/dL (Negative) 11/11/20 20:27 Urine Glucose (UA) Neg mg/dL (Negative) 11/11/20 20:27 Urine Ketones Neg mg/dL (Negative) 11/11/20 20:27 Urine Blood Sm (Negative) 11/11/20 20:27 Urine Nitrite Neg (Negative) 11/11/20 20:27 Urine Bilirubin Neg (Negative) 11/11/20 20:27 Urine Urobilinogen 4.0 mg/dL (<2.0) 11/11/20 20:27 Ur Leukocyte Esterase Neg (Negative) 11/11/20 20:27 Urine WBC (Auto) 1.0 /HPF (0.0-6.0) 11/11/20 20: Urine RBC (Auto) 4.0 /HPF (0.0-6.0) 11/11/20 20:27 U Epithel Cells (Auto) 12.0 /HPF (0-13.0) 11/11/20 20:27 Urine Bacteria (Auto) 1+ /HPF (Negative) 11/11/20 20:27 Urine Mucus Few /HPF 11/11/20 20:27 Urine Opiates Screen Negative 11/11/20 20:27 Urine Methadone Screen Negative 11/11/20 20:27 Ur Barbiturates Screen Positive 11/11/20 20:27 Ur Phencyclidine Scrn Negative 11/11/20 20:27 Ur Amphetamines Screen Negative 11/11/20 20:27 Phenobarbital 4.3 ug/mL (15.0-40.0) L 11/12/20 08:47 U Benzodiazepines Scrn Negative 11/11/20 20:27 Urine Cocaine Screen Negative 11/11/20 20:27 U Marijuana (THC) Screen Negative 11/11/20 20:27 Drugs of Abuse Note Disclamer 11/11/20 20:27 Plasma/Serum Alcohol < 0.01 % (0-0.07) 11/11/20 09:02 Coronavirus (PCR) Negative (Negative) 11/12/20 08:00 [place]/IV: Voiding Method Indwelling Catheter Active Medications - Current Medications Current Medications: Generic Name Dose Route Start Last Admin Trade Name Freq PRN Reason Stop Dose Admin Acetaminophen 650 mg 11/11/20 22:58 Acetaminophen 325 Mg Tab PO Q4H PRN Pain MILD(1-3)/Fever >100.5/BAR Albuterol 2.5 mg 11/11/20 23:18 Albuterol 2.5 Mg/3 Ml Nebu IH Q3HRT PRN Wheezing Albuterol/Ipratropium 1 ampul 11/12/20 08:00 11/13/20 08:06 Ipratropium/Albuterol Sulfate 3 Ml Ampul.Neb IH 1 ampul QIDRT KIRK Administration Lipase/Protease/Amylase 1 each 11/12/20 12:00 Lipase 10,500/Protease 25,000/Amylase 43,750 (Units) Dr Rangel FEEDTUBE PRN PRN For Clogged Feeding Tube Dextrose 50 ml 11/11/20 22:11 11/12/20 00:48 Dextrose 50% In Water (25gm) 50 Ml Syringe IV 25 ml ONCE PRN Administration Hypoglycemia Protocol Enoxaparin Sodium 40 mg 11/12/20 22:00 11/12/20 22:06 Enoxaparin 40 Mg/0.4 Ml Inj SUB-Q 40 mg QDAY@2200 KIRK Administration Protocol Famotidine 20 mg 11/11/20 23:00 11/13/20 10:06 Famotidine 20 Mg/2 Ml Inj IV 20 mg BID KIRK Administration Hydralazine HCl 10 mg 11/12/20 10:30 Hydralazine 20 Mg/1 Ml Inj IV Q4H PRN Hypertension Hydrophilic Ointment 1 applic 11/11/20 09:14 Lip Therapy Vaseline TP Q2HR PRN Dry Lips Sodium Chloride 1,000 mls @ 75 mls/hr 11/11/20 23:00 Nacl 0.9% 1000 Ml IV DIRECT KIRK Cefepime HCl 2 gm in 100 mls @ 200 mls/hr 11/12/20 00:00 11/13/20 09:00 Cefepime/Ns 2 Gm/100 Ml IV 200 mls/hr Q8H KIRK Administration Protocol Vancomycin HCl 1 gm in 250 mls @ 166.667 mls/hr 11/12/20 13:00 11/13/20 00:26 Vancomycin/Ns 1 Gm/250 Ml IV 166.667 mls/hr Q12H KIRK Administration Levetiracetam 1,500 mg/ 115 mls @ 400 mls/hr 11/12/20 10:00 11/13/20 10:05 Dextrose IV 400 mls/hr Q12HR KIRK Administration Thiamine HCl 100 mg/ Folic 1,001.2 mls @ 125 mls/hr 11/13/20 00:00 11/13/20 00:26 Acid 1 mg/ Sodium Chloride IV 125 mls/hr Q24H KIRK Administration Insulin Human Regular 0 units 11/12/20 18:00 11/13/20 06:57 Insulin Regular, Human 100 Units/1 Ml SUB-Q Not Given Q6H [facility] Protocol Metoclopramide HCl 10 mg 11/11/20 22:58 Metoclopramide 10 Mg/2 Ml Inj IV Q6H PRN Nausea And Vomiting Multi-Ingred Cream/Lotion/Oil/Oint 1 applic 11/11/20 09:14 Mineral Oil/Petrolatum, White Ophth Oint 3.5 Gm OU Q4HR PRN Dry Eye(s) Multivitamins 1 each 11/13/20 00:00 11/13/20 01:14 Multivitamins ,Therapeutic Tab PO 1 each Q24H KIRK Administration Naloxone HCl 2 mg 11/11/20 08:33 Naloxone 0.4 Mg/1 Ml Inj IV Q2MIN PRN Res Rate </= 8 or 02 SAT < 92% Ondansetron HCl 4 mg 11/11/20 22:58 Ondansetron 4 Mg/2 Ml Inj IV Q3H PRN Nausea And Vomiting Phenobarbital 15 mg 11/11/20 23:45 11/13/20 10:06 Phenobarbital 15 Mg Tab PO 15 mg BID KIRK Administration Simple Syrup 15 ml 11/12/20 12:00 Simple Syrup 15 Ml FEEDTUBE PRN PRN Hypoglycemia Simple Syrup 30 ml 11/12/20 12:00 Simple Syrup 15 Ml FEEDTUBE PRN PRN Hypoglycemia Sodium Bicarbonate 325 mg 11/12/20 12:00 Sodium Bicarbonate 325 Mg Tab FEEDTUBE PRN PRN For Clogged Feeding Tube Sodium Chloride 10 ml 11/11/20 23:00 11/13/20 10:07 Sodium Chloride 0.9% 10 Ml Flush Syringe IV 10 ml BID KIRK Administration Sodium Chloride 10 ml 11/11/20 22:58 Sodium Chloride 0.9% 10 Ml Flush Syringe IV PRN PRN LINE FLUSH Nutrition/Malnutrition Assess - Dietary Evaluation Nutrition/Malnutrition Findings: Nutrition Notes Start: 11/12/20 08:26 Freq: Status: Active Protocol: Document 11/13/20 11:07 JOHANA (Rec: 11/13/20 11:10 JOHANA [id number]) Nutrition Notes Need for Assessment generated from: post graduate intern,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 Pt currently being followed by RD. Will f/u as noted below. Nutrition Intervention Follow-Up By: 11/15/20 Additional Comments F/U for TF start and tolerance
[2020-11-13] MEDS: ENOXAPARIN 40 MG/0.4 ML INJ SUB-Q SCH (21:21)
[2020-11-14] MEDS: INSULIN REGULAR, HUMAN 100 UNITS/1 ML SUB-Q SCH ×3 (00:48→13:57)
[2020-11-14] MEDS: MULTIVITAMINS ,THERAPEUTIC TAB PO SCH (00:48)
[2020-11-14] MEDS: THIAMINE 100 MG, FOLIC ACID 1 MG in SODIUM CHLORIDE 0.9% 1000 ML 1,000 ML IV SCH (01:51)
--- NOTE | 2020-11-14 01:53 | XRay Report ---
XR chest 1V ap INDICATION / CLINICAL INFORMATION: follow up respiratory failure. COMPARISON: Radiograph from yesterday. FINDINGS: SUPPORT DEVICES: Endotracheal tube terminates appropriately at the level of the clavicular heads. En teric tube terminates at the GE junction.. HEART / MEDIASTINUM: Normal. LUNGS / PLEURA: Lung parenchyma is not significantly changed and appear clear. No pneumothorax. Cost ophrenic sulci are sharp. ADDITIONAL FINDINGS: No significant additional findings. IMPRESSION: 1. Enteric tube terminates at the GE junction. Recommend advancing further for optimal positioning. Signer Name: Mitch Schaffer MD Signed: 11/14/2020 1:49 AM Workstation Name: [email or web address]
[2020-11-14] MEDS: IPRATROPIUM/ALBUTEROL SULFATE 3 ML AMPUL.NEB IH SCH ×3 (07:09→19:17)
[2020-11-14] MEDS: hydrALAZINE 20 MG/1 ML INJ IV PRN (07:30)
[2020-11-14 07:59] LABS: Basophils # (Auto) 0.1 K/mm3 (0.0-0.1); Basophils % (Auto) 0.6 % (0.0-1.8); Eosinophils # (Auto) 0.1 K/mm3 (0.0-0.4); Eosinophils % (Auto) 0.5 % (0.0-4.3); Hematocrit 35.3 % (35.5-45.6); Hemoglobin 11.7 gm/dl (11.8-15.2); Lymphocytes # (Auto) 2.1 K/mm3 (1.2-5.4); Lymphocytes % (Auto) 19.8 % (13.4-35.0); Mean Corpuscular HGB Conc 33 % (32-34); Mean Corpuscular Volume 86 fl (84-94); Monocytes % (Auto) 9.8 % (0.0-7.3); Red Blood Count 4.13 M/mm3 (3.65-5.03); Red Cell Distribution Width 15.8 % (13.2-15.2)
[2020-11-14 08:09] LABS: Platelet Count 150 K/mm3 (140-440)
[2020-11-14 08:23] LABS: Alanine Aminotransferase 78 units/L (7-56); Albumin 2.6 g/dL (3.9-5); Blood Urea Nitrogen 18 mg/dL (9-20); Hemolysis Index 18
[2020-11-14 08:26] LABS: BUN/Creatinine Ratio 26
[2020-11-14] MEDS: PHENobarbital 15 MG TAB PO SCH ×2 (09:08→21:39)
[2020-11-14] MEDS: levETIRAcetam 1,500 MG in DEXTROSE 5% IN WATER 100 ML IV SCH ×2 (09:08→21:38)
[2020-11-14] MEDS: FAMOTIDINE 20 MG/2 ML INJ IV SCH ×2 (09:08→21:39)
--- NOTE | 2020-11-14 11:17 | Progress Note ---
Assessment and Plan Assessment and plan: #Acute hypoxic respiratory failure Now on mechanical ventilation #Seizure disorder Patient reportedly had status epilepticus Continued on Keppra and phenobarbital CT head negative Neurology following EEG pending. Patient may need transfer to a tertiary institution for continuous EEG monitoring if EEG shows seizures #SIRS Etiology unknown-urinalysis negative, chest x-ray also negative COVID-19 test negative Discontinued antibiotics #Hypoglycemia Resolved Monitor blood glucose closely Enteral feeds #Tobacco abuse Needs tobacco abuse counseling when extubated #DVT prophylaxis-SCDs, Lovenox #GI prophylaxis-PPIs Critical care statement The high probability of a clinically significant, sudden or life threatening deterioration of the [neuro,respiratory] system(s) required my full and direct attention, intervention and personal management. The aggregate critical care time was [35] minutes. This time is in addition to time spent performing reported procedures but includes the following: [x] Data Review and interpretation [x] Patient assessment and monitoring of vital signs [x] Documentation [x] Medication orders and management History Interval history: This is a 60-year-old male with seizure disorder current alcohol and tobacco abuse presents to the hospital on 11/11 after being found unresponsive. On arrival of EMS patient was found to be hypoglycemic and given IV dextrose after which he recovered and refused further care. EMS was called again by family after the patient was found unresponsive and was given Narcan with no change. Patient was noted to have seizure activity and given 7 mg IV Ativan total including 3 from EMS. Patient was loaded with Keppra 2 g and was intubated for airway protection. Patient was found to have metabolic acidosis and hypoglycemia on BMP. Patient was found to be hypothermic and hypertensive in the emergency department. Patient's UDS was positive for barbiturates. Patient was admitted to the hospital service for further work-up with consults to [facility] and neurology. 11/12. Patient remains intubated. On Keppra and phenobarbital. Neurology evaluation appreciated. EEG ordered. May need transfer to tertiary care for continuous EEG pending EEG results. 11/13. Remains intubated and on antiseizure medications. EEG has been performed but results are pending. Neurology on board 11/14. Remains intubated and on antiseizure medications. EEG has been performed but results are pending. Neurology on board Hospitalist Physical - Physical exam Narrative exam: VITAL SIGNS: Reviewed. GENERAL: Intubated HEAD: No signs of head trauma. EYES: Pupils are equal. Extraocular motions intact. MOUTH: Oropharynx is normal. NECK: No adenopathy, no JVD. CHEST: Chest with diminished breath sounds bilaterally. No wheezes, rales, or rhonchi. CARDIAC: normal S1 and S2, without murmurs, gallops, or rubs. ABDOMEN: Soft, non tender and non distended. No rebound or guarding, and no masses palpated. Bowel Sounds normal. MUSCULOSKELETAL: No edema NEUROLOGIC EXAM: Intubated SKIN: No obvious lesions - Constitutional Vitals: Temp Pulse Resp BP Pulse Ox 98.5 F 90 21 157/81 100 11/14/20 08:00 11/14/20 08:40 11/14/20 08:40 11/14/20 08:40 11/14/20 08:40 HEART Score - HEART Score Troponin: Troponin T < 0.010 ng/mL (0.00-0.029) 11/11/20 09:02 Results - Labs CBC & Chem 7: 11/14/20 06:40 11/14/20 06:40 Labs: Laboratory Last Values WBC 10.7 K/mm3 (4.5-11.0) 11/14/20 06:40 RBC 4.13 M/mm3 (3.65-5.03) 11/14/20 06:40 Hgb 11.7 gm/dl (11.8-15.2) L 11/14/20 06:40 Hct 35.3 % (35.5-45.6) L D 11/14/20 06:40 MCV 86 fl (84-94) 11/14/20 06:40 MCH 28 pg (28-32) 11/14/20 06:40 MCHC 33 % (32-34) 11/14/20 06:40 RDW 15.8 % (13.2-15.2) H 11/14/20 06:40 Plt Count 150 K/mm3 (140-440) 11/14/20 06:40 Lymph % (Auto) 19.8 % (13.4-35.0) 11/14/20 06:40 [place] % (Auto) 9.8 % (0.0-7.3) H 11/14/20 06:40 Eos % (Auto) 0.5 % (0.0-4.3) 11/14/20 06:40 Baso % (Auto) 0.6 % (0.0-1.8) 11/14/20 06:40 Lymph # (Auto) 2.1 K/mm3 (1.2-5.4) 11/14/20 06:40 [place] # (Auto) 1.0 K/mm3 (0.0-0.8) H 11/14/20 06:40 Eos # (Auto) 0.1 K/mm3 (0.0-0.4) 11/14/20 06:40 Baso # (Auto) 0.1 K/mm3 (0.0-0.1) 11/14/20 06:40 Seg Neutrophils % 69.3 % (40.0-70.0) 11/14/20 06:40 Seg Neutrophils # 7.4 K/mm3 (1.8-7.7) 11/14/20 06:40 PT 11.5 Sec. (12.2-14.9) L 11/11/20 09:02 INR 0.86 (0.87-1.13) L 11/11/20 09:02 APTT 25.5 Sec. (24.2-36.6) 11/11/20 09:02 Thrombin Time 17.0 Sec. (15.1-19.6) 11/11/20 09:02 ABG pH 7.439 (7.320-7.450) 11/14/20 03:29 POC ABG pCO2 35.2 mmHg (32.0-48.0) 11/14/20 03:29 ABG pCO2 33.9 mm Hg 11/11/20 10:45 POC ABG pO2 124.2 mmHg (83-108) H 11/14/20 03:29 ABG pO2 222.2 mm Hg (80.0-90.0) H 11/11/20 10:45 POC ABG HCO3 23.3 11/14/20 03:29 ABG HCO3 24.9 mmol/L (20.0-26.0) 11/11/20 10:45 ABG O2 Saturation 97.6 (0-100) 11/14/20 03:29 ABG O2 Content 19.4 (0.0-44) 11/11/20 10:45 POC ABG Base Excess -0.4 11/14/20 03:29 ABG Base Excess 1.9 mmol/L (-2.0-3.0) 11/11/20 10:45 ABG Hemoglobin 11.9 (12.0-17.5) L 11/14/20 03:29 ABG Oxyhemoglobin 96.8 (94-98) 11/14/20 03:29 ABG Carboxyhemoglobin 0.6 % (0.0-5.0) 11/11/20 10:45 ABG Methemoglobin 0.3 (0.0-1.5) 11/14/20 03:29 ABG Sodium 134.0 mmol/L (136.0-145.0) L 11/14/20 03:29 ABG Potassium 3.8 mmol/L (3.40-4.50) 11/14/20 03:29 ABG Chloride 107.0 mmol/L (98-107) 11/14/20 03:29 ABG Glucose 108 mg/dL (65-95) H 11/14/20 03:29 Oxyhemoglobin 98.5 % (95.0-99.0) 11/11/20 10:45 Carboxyhemoglobin 0.5 (0.5-1.5) 11/14/20 03:29 FiO2 21 % 11/11/20 10:45 FiO2 % 30 11/14/20 03:29 Sodium 134 mmol/L (137-145) L 11/14/20 06:40 Potassium 3.8 mmol/L (3.6-5.0) 11/14/20 06:40 Chloride 105.2 mmol/L (98-107) 11/14/20 06:40 Carbon Dioxide 22 mmol/L (22-30) 11/14/20 06:40 Anion Gap 11 mmol/L 11/14/20 06:40 BUN 18 mg/dL (9-20) 11/14/20 06:40 Creatinine 0.7 mg/dL (0.8-1.3) L 11/14/20 06:40 Estimated GFR > 60 ml/min 11/14/20 06:40 BUN/Creatinine Ratio 26 % 11/14/20 06:40 Glucose 107 mg/dL (75-100) H 11/14/20 06:40 POC Glucose 102 mg/dL (70-105) 11/13/20 23:23 Hemoglobin A1c 5.4 % (4-6) 11/12/20 07:26 Calcium 8.0 mg/dL (8.4-10.2) L 11/14/20 06:40 Magnesium 2.00 mg/dL (1.7-2.3) 11/11/20 09:02 Total Bilirubin 0.30 mg/dL (0.1-1.2) 11/14/20 06:40 AST 96 units/L (5-40) H 11/14/20 06:40 ALT 78 units/L (7-56) H 11/14/20 06:40 Alkaline Phosphatase 92 units/L (35-129) 11/14/20 06:40 Ammonia 29.0 umol/L (25-60) 11/12/20 08:47 Total Creatine Kinase 169 units/L (55-170) 11/11/20 09:02 CK-MB (CK-2) 6.6 ng/mL (0.0-4.0) H 11/11/20 09:02 CK-MB (CK-2) Rel Index 3.9 (0-4) 11/11/20 09:02 Troponin T < 0.010 ng/mL (0.00-0.029) 11/11/20 09:02 Total Protein 6.0 g/dL (6.3-8.2) L 11/14/20 06:40 Albumin 2.6 g/dL (3.9-5) L 11/14/20 06:40 Albumin/Globulin Ratio 0.8 % 11/14/20 06:40 Arterial Blood Glucose 108 mg/dL (65-95) H 11/14/20 03:29 Arterial Blood Ionized Calcium 4.8 mg/dL (4.6-5.3) 11/14/20 03:29 Urine Color Yellow (Yellow) 11/11/20 20:27 Urine Turbidity Clear (Clear) 11/11/20 20: Urine pH 6.0 (5.0-7.0) 11/11/20 20:27 Ur Specific [place] 1.045 (1.003-1.030) H 11/11/20 20:27 Urine Protein 100 mg/dl mg/dL (Negative) 11/11/20 20:27 Urine Glucose (UA) Neg mg/dL (Negative) 11/11/20 20:27 Urine Ketones Neg mg/dL (Negative) 11/11/20 20:27 Urine Blood Sm (Negative) 11/11/20 20:27 Urine Nitrite Neg (Negative) 11/11/20 20:27 Urine Bilirubin Neg (Negative) 11/11/20 20:27 Urine Urobilinogen 4.0 mg/dL (<2.0) 11/11/20 20:27 Ur Leukocyte Esterase Neg (Negative) 11/11/20 20:27 Urine WBC (Auto) 1.0 /HPF (0.0-6.0) 11/11/20 20: Urine RBC (Auto) 4.0 /HPF (0.0-6.0) 11/11/20 20:27 U Epithel Cells (Auto) 12.0 /HPF (0-13.0) 11/11/20 20:27 Urine Bacteria (Auto) 1+ /HPF (Negative) 11/11/20 20:27 Urine Mucus Few /HPF 11/11/20 20:27 Urine Opiates Screen Negative 11/11/20 20:27 Urine Methadone Screen Negative 11/11/20 20:27 Ur Barbiturates Screen Positive 11/11/20 20:27 Ur Phencyclidine Scrn Negative 11/11/20 20:27 Ur Amphetamines Screen Negative 11/11/20 20:27 Phenobarbital 4.3 ug/mL (15.0-40.0) L 11/12/20 08:47 U Benzodiazepines Scrn Negative 11/11/20 20:27 Urine Cocaine Screen Negative 11/11/20 20:27 U Marijuana (THC) Screen Negative 11/11/20 20:27 Drugs of Abuse Note Disclamer 11/11/20 20:27 Plasma/Serum Alcohol < 0.01 % (0-0.07) 11/11/20 09:02 Coronavirus (PCR) Negative (Negative) 11/12/20 08:00 Microbiology: Microbiology 11/11/20 Unknown Sputum - Expectorated Sputum Sputum Culture - Final [place]/IV: Voiding Method Indwelling Catheter Active Medications - Current Medications Current Medications: Generic Name Dose Route Start Last Admin Trade Name Freq PRN Reason Stop Dose Admin Acetaminophen 650 mg 11/11/20 22:58 Acetaminophen 325 Mg Tab PO Q4H PRN Pain MILD(1-3)/Fever >100.5/BAR Albuterol 2.5 mg 03/11/21 23:18 Albuterol 2.5 Mg/3 Ml Nebu IH Q3HRT PRN Wheezing Albuterol/Ipratropium 1 ampul 11/12/20 08:00 11/14/20 07:09 Ipratropium/Albuterol Sulfate 3 Ml Ampul.Neb IH 1 ampul QIDRT KIRK Administration Lipase/Protease/Amylase 1 each 11/12/20 12:00 Lipase 10,500/Protease 25,000/Amylase 43,750 (Units) Dr Rangel FEEDTUBE PRN PRN For Clogged Feeding Tube Dextrose 50 ml 11/11/20 22:11 11/12/20 00:48 Dextrose 50% In Water (25gm) 50 Ml Syringe IV 25 ml ONCE PRN Administration Hypoglycemia Protocol Enoxaparin Sodium 40 mg 11/12/20 22:00 11/13/20 21:21 Enoxaparin 40 Mg/0.4 Ml Inj SUB-Q 40 mg QDAY@2200 KIRK Administration Protocol Famotidine 20 mg 11/11/20 23:00 11/14/20 09:08 Famotidine 20 Mg/2 Ml Inj IV 20 mg BID KIRK Administration Hydralazine HCl 10 mg 11/12/20 10:30 11/14/20 07:30 Hydralazine 20 Mg/1 Ml Inj IV 10 mg Q4H PRN Administration Hypertension Hydrophilic Ointment 1 applic 11/11/20 09:14 Lip Therapy Vaseline TP Q2HR PRN Dry Lips Sodium Chloride 1,000 mls @ 75 mls/hr 11/11/20 23:00 11/13/20 18:49 Nacl 0.9% 1000 Ml IV 75 mls/hr DIRECT KIRK Administration Levetiracetam 1,500 mg/ 115 mls @ 400 mls/hr 11/12/20 10:00 11/14/20 09:08 Dextrose IV 400 mls/hr Q12HR KIRK Administration Thiamine HCl 100 mg/ Folic 1,001.2 mls @ 125 mls/hr 11/13/20 00:00 11/14/20 01:51 Acid 1 mg/ Sodium Chloride IV 125 mls/hr Q24H KIRK Administration Insulin Human Regular 0 units 11/12/20 18:00 11/14/20 06:53 Insulin Regular, Human 100 Units/1 Ml SUB-Q Not Given Q6H KIRK Protocol Metoclopramide HCl 10 mg 11/11/20 22:58 Metoclopramide 10 Mg/2 Ml Inj IV Q6H PRN Nausea And Vomiting Multi-Ingred Cream/Lotion/Oil/Oint 1 applic 11/11/20 09:14 Mineral Oil/Petrolatum, White Ophth Oint 3.5 Gm OU Q4HR PRN Dry Eye(s) Multivitamins 1 each 11/13/20 00:00 11/14/20 00:48 Multivitamins ,Therapeutic Tab PO 1 each Q24H KIRK Administration Naloxone HCl 2 mg 11/11/20 08:33 Naloxone 0.4 Mg/1 Ml Inj IV Q2MIN PRN Res Rate </= 8 or 02 SAT < 92% Ondansetron HCl 4 mg 11/11/20 22:58 Ondansetron 4 Mg/2 Ml Inj IV Q3H PRN Nausea And Vomiting Phenobarbital 15 mg 11/11/20 23:45 11/14/20 09:08 Phenobarbital 15 Mg Tab PO 15 mg BID KIRK Administration Simple Syrup 15 ml 11/12/20 12:00 Simple Syrup 15 Ml FEEDTUBE PRN PRN Hypoglycemia Simple Syrup 30 ml 11/12/20 12:00 Simple Syrup 15 Ml FEEDTUBE PRN PRN Hypoglycemia Sodium Bicarbonate 325 mg 11/12/20 12:00 Sodium Bicarbonate 325 Mg Tab FEEDTUBE PRN PRN For Clogged Feeding Tube Sodium Chloride 10 ml 11/11/20 23:00 11/14/20 09:08 Sodium Chloride 0.9% 10 Ml Flush Syringe IV 10 ml BID KIRK Administration Sodium Chloride 10 ml 11/11/20 22:58 Sodium Chloride 0.9% 10 Ml Flush Syringe IV PRN PRN LINE FLUSH Nutrition/Malnutrition Assess - Dietary Evaluation Nutrition/Malnutrition Findings: Nutrition Notes Start: 11/12/20 08:26 Freq: Status: Active Protocol: Document 11/13/20 11:07 JOHANA (Rec: 11/13/20 11:10 [email or web address] [id number]) Nutrition Notes Need for Assessment 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 Pt currently being followed by RD. Will f/u as noted below. Nutrition Intervention Follow-Up By: 11/15/20 Additional Comments F/U for TF start and tolerance
--- NOTE | 2020-11-14 13:58 | Progress Note ---
Assessment and Plan 70 y/o male with acute respiratory failure secondary to seizure activity. 11/14/20: Follow up EEG read. No sedation. Follow up Neurology recs. 1. Follow up EEG read 2. No sedation 3. PSV as tolerated 4. Guarded prognosis. CCT 31 minutes. Subjective Date of service: 11/14/20 Interval history: No acute events. Still not responsive. Objective Vital Signs - 12hr 11/14/20 11/14/20 11/14/20 01:00 01:11 01:21 Temperature Pulse Rate 69 71 87 Pulse Rate [ Anterior Bilateral Throughout] Pulse Rate [ From Monitor] Respiratory 18 19 18 Rate Respiratory Rate [Anterior Bilateral Throughout] Blood Pressure 153/88 153/88 153/88 O2 Sat by Pulse 100 100 100 Oximetry 11/14/20 11/14/20 11/14/20 01:31 01:41 01:51 Temperature Pulse Rate 87 76 80 Pulse Rate [ Anterior Bilateral Throughout] Pulse Rate [ From Monitor] Respiratory 18 18 15 Rate Respiratory Rate [Anterior Bilateral Throughout] Blood Pressure 153/88 153/88 153/88 O2 Sat by Pulse 100 100 100 Oximetry 11/14/20 11/14/20 11/14/20 03:00 03:11 03:13 Temperature Pulse Rate 70 64 73 Pulse Rate [ Anterior Bilateral Throughout] Pulse Rate [ From Monitor] Respiratory 18 18 18 Rate Respiratory Rate [Anterior Bilateral Throughout] Blood Pressure 149/87 149/87 153/88 O2 Sat by Pulse 100 100 100 Oximetry 11/14/20 11/14/20 11/14/20 03:21 03:31 03:40 Temperature Pulse Rate 71 78 77 Pulse Rate [ Anterior Bilateral Throughout] Pulse Rate [ From Monitor] Respiratory 18 17 17 Rate Respiratory Rate [Anterior Bilateral Throughout] Blood Pressure 149/87 149/87 153/88 O2 Sat by Pulse 100 100 100 Oximetry 11/14/20 11/14/20 11/14/20 03:48 03:54 04:00 Temperature 98.5 F Pulse Rate 67 86 Pulse Rate [ Anterior Bilateral Throughout] Pulse Rate [ 75 From Monitor] Respiratory 20 Rate Respiratory Rate [Anterior Bilateral Throughout] Blood Pressure 149/87 168/93 O2 Sat by Pulse 100 100 Oximetry 11/14/20 11/14/20 11/14/20 04:11 04:21 04:31 Temperature Pulse Rate 94 H 83 76 Pulse Rate [ Anterior Bilateral Throughout] Pulse Rate [ From Monitor] Respiratory 19 16 16 Rate Respiratory Rate [Anterior Bilateral Throughout] Blood Pressure 168/93 168/93 168/93 O2 Sat by Pulse 100 100 100 Oximetry 11/14/20 11/14/20 11/14/20 04:41 04:51 05:00 Temperature Pulse Rate 79 75 74 Pulse Rate [ Anterior Bilateral Throughout] Pulse Rate [ From Monitor] Respiratory 18 17 18 Rate Respiratory Rate [Anterior Bilateral Throughout] Blood Pressure 168/93 168/93 155/86 O2 Sat by Pulse 100 100 100 Oximetry 11/14/20 11/14/20 11/14/20 05:11 05:21 05:31 Temperature Pulse Rate 78 73 85 Pulse Rate [ Anterior Bilateral Throughout] Pulse Rate [ From Monitor] Respiratory 18 16 16 Rate Respiratory Rate [Anterior Bilateral Throughout] Blood Pressure 155/86 155/86 155/86 O2 Sat by Pulse 100 100 100 Oximetry 11/14/20 11/14/20 11/14/20 05:41 05:51 06:00 Temperature Pulse Rate 67 83 70 Pulse Rate [ Anterior Bilateral Throughout] Pulse Rate [ From Monitor] Respiratory 18 20 18 Rate Respiratory Rate [Anterior Bilateral Throughout] Blood Pressure 155/86 155/86 162/88 O2 Sat by Pulse 100 100 100 Oximetry 11/14/20 11/14/20 11/14/20 06:11 06:21 06:31 Temperature Pulse Rate 68 63 76 Pulse Rate [ Anterior Bilateral Throughout] Pulse Rate [ From Monitor] Respiratory 18 18 19 Rate Respiratory Rate [Anterior Bilateral Throughout] Blood Pressure 162/88 162/88 162/88 O2 Sat by Pulse 100 100 100 Oximetry 11/14/20 11/14/20 11/14/20 06:41 06:51 07:00 Temperature Pulse Rate 68 83 90 Pulse Rate [ Anterior Bilateral Throughout] Pulse Rate [ From Monitor] Respiratory 18 18 21 Rate Respiratory Rate [Anterior Bilateral Throughout] Blood Pressure 162/88 162/88 172/96 O2 Sat by Pulse 100 100 100 Oximetry 11/14/20 11/14/20 11/14/20 07:09 07:10 07:21 Temperature Pulse Rate 79 80 85 Pulse Rate [ 82 Anterior Bilateral Throughout] Pulse Rate [ From Monitor] Respiratory 20 16 Rate Respiratory 18 Rate [Anterior Bilateral Throughout] Blood Pressure 180/91 180/91 180/91 O2 Sat by Pulse 100 100 100 Oximetry 11/14/20 11/14/20 11/14/20 07:30 07:40 07:50 Temperature Pulse Rate 89 93 H 90 Pulse Rate [ Anterior Bilateral Throughout] Pulse Rate [ From Monitor] Respiratory 21 19 21 Rate Respiratory Rate [Anterior Bilateral Throughout] Blood Pressure 157/81 157/81 O2 Sat by Pulse 100 100 100 Oximetry 11/14/20 11/14/20 11/14/20 08:00 08:10 08:20 Temperature 98.5 F Pulse Rate 99 H 95 H 97 H Pulse Rate [ Anterior Bilateral Throughout] Pulse Rate [ 75 From Monitor] Respiratory 21 20 25 H Rate Respiratory Rate [Anterior Bilateral Throughout] Blood Pressure 143/74 157/81 157/81 O2 Sat by Pulse 100 100 100 Oximetry 11/14/20 11/14/20 11/14/20 08:30 08:40 11:09 Temperature Pulse Rate 87 90 89 Pulse Rate [ 89 Anterior Bilateral Throughout] Pulse Rate [ From Monitor] Respiratory 20 21 Rate Respiratory 20 Rate [Anterior Bilateral Throughout] Blood Pressure 157/81 157/81 121/71 O2 Sat by Pulse 100 100 100 Oximetry Constitutional: comatose Ascultation: Bilateral: clear Gastrointestinal: hypoactive bowel sounds Neurologic: non-focal exam, unable to assess CBC and BMP: 11/14/20 06:40 11/14/20 06:40 ABG, PT/INR, D-dimer: ABG ABG pH 7.439 (7.320-7.450) 11/14/20 03:29 POC ABG pCO2 35.2 mmHg (32.0-48.0) 11/14/20 03:29 ABG pCO2 33.9 mm Hg 11/11/20 10:45 POC ABG pO2 124.2 mmHg (83-108) H 11/14/20 03:29 ABG pO2 222.2 mm Hg (80.0-90.0) H 11/11/20 10:45 POC ABG HCO3 23.3 11/14/20 03:29 ABG O2 Saturation 97.6 (0-100) 11/14/20 03:29 PT/INR, D-dimer PT 11.5 Sec. (12.2-14.9) L 11/11/20 09:02 INR 0.86 (0.87-1.13) L 11/11/20 09:02 Abnormal lab findings: Abnormal Labs 11/11/20 11/11/20 11/11/20 09:02 09:02 09:02 RBC 5.16 H Hgb Hct RDW 16.1 H Lymph % (Auto) 12.2 L [place] % (Auto) Lymph # (Auto) 1.1 L [place] # (Auto) Seg Neutrophils % 80.5 H PT 11.5 L INR 0.86 L ABG pH POC ABG pCO2 POC ABG pO2 ABG pO2 ABG O2 Saturation ABG Hemoglobin ABG Sodium ABG Glucose Sodium Carbon Dioxide BUN Creatinine Glucose POC Glucose Calcium AST ALT CK-MB (CK-2) 6.6 H Total Protein Albumin Arterial Blood Glucose Ur Specific [employer] Phenobarbital 11/11/20 11/11/20 11/11/20 09:02 10:45 20:27 RBC Hgb Hct RDW Lymph % (Auto) [place] % (Auto) Lymph # (Auto) [place] # (Auto) Seg Neutrophils % PT INR ABG pH 7.483 H POC ABG pCO2 POC ABG pO2 ABG pO2 222.2 H ABG O2 Saturation 99.3 H ABG Hemoglobin 13.7 L ABG Sodium ABG Glucose Sodium Carbon Dioxide 20 L BUN Creatinine Glucose 55 L POC Glucose Calcium AST ALT CK-MB (CK-2) Total Protein Albumin Arterial Blood Glucose Ur Specific [employer] 1.045 H Phenobarbital 11/11/20 11/11/20 11/11/20 20:34 22:06 23:43 RBC Hgb Hct RDW Lymph % (Auto) [place] % (Auto) Lymph # (Auto) [place] # (Auto) Seg Neutrophils % PT INR ABG pH POC ABG pCO2 POC ABG pO2 ABG pO2 ABG O2 Saturation ABG Hemoglobin ABG Sodium ABG Glucose Sodium Carbon Dioxide BUN Creatinine Glucose 30 L* POC Glucose 161 H 32 L Calcium AST ALT CK-MB (CK-2) Total Protein Albumin Arterial Blood Glucose Ur Specific [employer] Phenobarbital 11/12/20 11/12/20 11/12/20 03:51 08:14 08:14 RBC Hgb Hct RDW 15.9 H Lymph % (Auto) [place] % (Auto) Lymph # (Auto) [place] # (Auto) Seg Neutrophils % PT INR ABG pH 7.485 H POC ABG pCO2 31.2 L POC ABG pO2 ABG pO2 ABG O2 Saturation ABG Hemoglobin ABG Sodium 134.1 L ABG Glucose Sodium Carbon Dioxide BUN Creatinine Glucose POC Glucose Calcium AST 45 H ALT CK-MB (CK-2) Total Protein Albumin 3.6 L Arterial Blood Glucose Ur Specific [employer] Phenobarbital 11/12/20 11/12/20 11/12/20 08:47 09:45 12:21 RBC Hgb Hct RDW Lymph % (Auto) [place] % (Auto) Lymph # (Auto) [place] # (Auto) Seg Neutrophils % PT INR ABG pH POC ABG pCO2 POC ABG pO2 ABG pO2 ABG O2 Saturation ABG Hemoglobin ABG Sodium ABG Glucose Sodium Carbon Dioxide BUN Creatinine Glucose POC Glucose 115 H 160 H Calcium AST ALT CK-MB (CK-2) Total Protein Albumin Arterial Blood Glucose Ur Specific [employer] Phenobarbital 4.3 L 11/12/20 11/12/20 11/13/20 17:42 22:07 03:56 RBC Hgb Hct RDW Lymph % (Auto) [place] % (Auto) Lymph # (Auto) [place] # (Auto) Seg Neutrophils % PT INR ABG pH POC ABG pCO2 POC ABG pO2 124.2 H ABG pO2 ABG O2 Saturation ABG Hemoglobin ABG Sodium 134.0 L ABG Glucose 131 H Sodium Carbon Dioxide BUN Creatinine Glucose POC Glucose 187 H 152 H Calcium AST ALT CK-MB (CK-2) Total Protein Albumin Arterial Blood Glucose 131 H Ur Specific [employer] Phenobarbital 11/13/20 11/13/20 11/13/20 04:38 14:24 17:45 RBC Hgb Hct RDW Lymph % (Auto) [place] % (Auto) Lymph # (Auto) [place] # (Auto) Seg Neutrophils % PT INR ABG pH POC ABG pCO2 POC ABG pO2 ABG pO2 ABG O2 Saturation ABG Hemoglobin ABG Sodium ABG Glucose Sodium 136 L Carbon Dioxide BUN 25 H Creatinine Glucose 123 H POC Glucose 108 H 114 H Calcium AST ALT CK-MB (CK-2) Total Protein Albumin Arterial Blood Glucose Ur Specific [employer] Phenobarbital 11/13/20 11/14/20 11/14/20 21:14 03:29 06:40 RBC Hgb 11.7 L Hct 35.3 L D RDW 15.8 H Lymph % (Auto) [place] % (Auto) 9.8 H Lymph # (Auto) [place] # (Auto) 1.0 H Seg Neutrophils % PT INR ABG pH POC ABG pCO2 POC ABG pO2 124.2 H ABG pO2 ABG O2 Saturation ABG Hemoglobin 11.9 L ABG Sodium 134.0 L ABG Glucose 108 H Sodium Carbon Dioxide BUN Creatinine Glucose POC Glucose 108 H Calcium AST ALT CK-MB (CK-2) Total Protein Albumin Arterial Blood Glucose 108 H Ur Specific [employer] Phenobarbital 11/14/20 06:40 RBC Hgb Hct RDW Lymph % (Auto) [place] % (Auto) Lymph # (Auto) [place] # (Auto) Seg Neutrophils % PT INR ABG pH POC ABG pCO2 POC ABG pO2 ABG pO2 ABG O2 Saturation ABG Hemoglobin ABG Sodium ABG Glucose Sodium 134 L Carbon Dioxide BUN Creatinine 0.7 L Glucose 107 H POC Glucose Calcium 8.0 L AST 96 H ALT 78 H CK-MB (CK-2) Total Protein 6.0 L Albumin 2.6 L Arterial Blood Glucose Ur Specific [employer] Phenobarbital
[2020-11-14] MEDS: ENOXAPARIN 40 MG/0.4 ML INJ SUB-Q SCH (21:39)
[2020-11-15] MEDS: IPRATROPIUM/ALBUTEROL SULFATE 3 ML AMPUL.NEB IH SCH ×4 (03:38→19:38)
--- NOTE | 2020-11-15 03:59 | XRay Report ---
XR chest 1V ap INDICATION / CLINICAL INFORMATION: follow up respiratory failure. COMPARISON: Radiograph from yesterday. FINDINGS: SUPPORT DEVICES: Endotracheal tube terminates appropriately at the level of the clavicular heads. En teric tube has been retracted and terminates in the mid esophagus. HEART / MEDIASTINUM: Normal. LUNGS / PLEURA: Lung parenchyma is not significantly changed and appear clear. No pneumothorax. Cost ophrenic sulci are sharp. ADDITIONAL FINDINGS: No significant additional findings. IMPRESSION: 1. Enteric tube has been retracted and now terminates in the midesophagus. Recommend advancing furthe r for optimal positioning. Signer Name: Mitch Schaffer MD Signed: 11/15/2020 3:55 AM Workstation Name: [id number]
[2020-11-15] MEDS: MULTIVITAMINS ,THERAPEUTIC TAB PO SCH (04:09)
[2020-11-15] MEDS: THIAMINE 100 MG, FOLIC ACID 1 MG in SODIUM CHLORIDE 0.9% 1000 ML 1,000 ML IV SCH (04:25)
[2020-11-15 06:29] LABS: Basophils % (Auto) 0.4 % (0.0-1.8); Eosinophils # (Auto) 0.1 K/mm3 (0.0-0.4); Eosinophils % (Auto) 0.8 % (0.0-4.3); Hematocrit 35.1 % (35.5-45.6); Hemoglobin 11.6 gm/dl (11.8-15.2); Lymphocytes # (Auto) 1.9 K/mm3 (1.2-5.4); Lymphocytes % (Auto) 18.9 % (13.4-35.0); Mean Corpuscular HGB Conc 33 % (32-34); Mean Corpuscular Volume 85 fl (84-94); Monocytes # (Auto) 1.3 K/mm3 (0.0-0.8); Monocytes % (Auto) 12.7 % (0.0-7.3); Platelet Count 203 K/mm3 (140-440); Red Blood Count 4.12 M/mm3 (3.65-5.03); Red Cell Distribution Width 15.7 % (13.2-15.2)
[2020-11-15 08:34] LABS: Alanine Aminotransferase 58 units/L (7-56); Albumin 2.8 g/dL (3.9-5); Blood Urea Nitrogen 14 mg/dL (9-20); Calcium 8.9 mg/dL (8.4-10.2); Hemolysis Index 1
[2020-11-15 09:00] LABS: BUN/Creatinine Ratio 20
--- NOTE | 2020-11-15 09:10 | Progress Note ---
Assessment and Plan Assessment and plan: #SIRS Etiology unknown-urinalysis negative, chest x-ray also negative COVID-19 test negative Discontinued antibiotics #Acute hypoxic respiratory failure Now on mechanical ventilation, VAP, wean as tolerated #Seizure disorder Patient reportedly had status epilepticus Continued on Keppra and phenobarbital CT head negative Neurology following EEG shows significant encephalopathy, does not rule out epilepsy. #Transaminitis Trend LFTs #Hypoglycemia Resolved Monitor blood glucose closely Enteral feeds #Tobacco abuse Needs tobacco abuse counseling when extubated #DVT prophylaxis-SCDs, Lovenox #GI prophylaxis-PPI Critical care statement The high probability of a clinically significant, sudden or life threatening deterioration of the [neuro,respiratory] system(s) required my full and direct attention, intervention and personal management. The aggregate critical care time was [35] minutes. This time is in addition to time spent performing reported procedures but includes the following: [x] Data Review and interpretation [x] Patient assessment and monitoring of vital signs [x] Documentation [x] Medication orders and management History Interval history: This is a 60-year-old male with seizure disorder current alcohol and tobacco abuse presents to the hospital on 11/11 after being found unresponsive. On arrival of EMS patient was found to be hypoglycemic and given IV dextrose after which he recovered and refused further care. EMS was called again by family after the patient was found unresponsive and was given Narcan with no change. Patient was noted to have seizure activity and given 7 mg IV Ativan total including 3 from EMS. Patient was loaded with Keppra 2 g and was intubated for airway protection. Patient was found to have metabolic acidosis and hypoglycemia on BMP. Patient was found to be hypothermic and hypertensive in the emergency department. Patient's UDS was positive for barbiturates. Patient was admitted to the hospital service for further work-up with consults to [facility] and neurology. SIRS Acute hypoxic respiratory failure s/p Status epilepticus Acute encephalopathy Seizure disorder Lactic acidosis Hypoglycemia EtOH and tobacco abuse Transaminitis Hyponatremia 11/12. Patient remains intubated. On Keppra and phenobarbital. Neurology evaluation appreciated. EEG ordered. May need transfer to tertiary care for continuous EEG pending EEG results. 11/13. Remains intubated and on antiseizure medications. EEG has been performed but results are pending. Neurology on board 11/14. Remains intubated and on antiseizure medications. EEG has been performed but results are pending. Neurology on board 11/15: EEG is consistent with significant encephalopathy and does not rule out the possibility of epilepsy, patient remains on mechanical ventilation with minimal vent settings. No acute events reported overnight. Hospitalist Physical - Constitutional Vitals: Temp Pulse Resp BP Pulse Ox 99.6 F 73 16 138/76 98 11/15/20 08:00 11/15/20 07:14 11/15/20 07:14 11/15/20 07:14 11/15/20 07:14 General appearance: Present: no acute distress, well-nourished - EENT Eyes: Present: PERRL - Neck Neck: Present: normal ROM - Respiratory Respiratory effort: normal Respiratory: bilateral: CTA - Cardiovascular Rhythm: regular Heart Sounds: Present: S1 & S2. Absent: systolic murmur, diastolic murmur - Extremities Extremities: no ischemia, pulses intact, pulses symmetrical, No edema Peripheral Pulses: within normal limits - Abdominal General gastrointestinal: soft, non-tender, non-distended, normal bowel sounds - Integumentary Integumentary: Present: clear, warm, dry - Psychiatric Psychiatric: other (Minimal withdrawal to painful stimuli) - Neurologic Neurologic: moves all extremities (To painful stimuli) - Allied Health Allied health notes reviewed: nursing, RT HEART Score - HEART Score Troponin: Troponin T < 0.010 ng/mL (0.00-0.029) 11/11/20 09:02 Results - Labs CBC & Chem 7: 11/15/20 05:21 11/15/20 05:21 Labs: Laboratory Last Values WBC 10.1 K/mm3 (4.5-11.0) 11/15/20 05:21 RBC 4.12 M/mm3 (3.65-5.03) 11/15/20 05:21 Hgb 11.6 gm/dl (11.8-15.2) L 11/15/20 05:21 Hct 35.1 % (35.5-45.6) L 11/15/20 05:21 MCV 85 fl (84-94) 11/15/20 05:21 MCH 28 pg (28-32) 11/15/20 05:21 MCHC 33 % (32-34) 11/15/20 05:21 RDW 15.7 % (13.2-15.2) H 11/15/20 05:21 Plt Count 203 K/mm3 (140-440) 11/15/20 05:21 Lymph % (Auto) 18.9 % (13.4-35.0) 11/15/20 05:21 [place] % (Auto) 12.7 % (0.0-7.3) H 11/15/20 05:21 Eos % (Auto) 0.8 % (0.0-4.3) 11/15/20 05:21 Baso % (Auto) 0.4 % (0.0-1.8) 11/15/20 05:21 Lymph # (Auto) 1.9 K/mm3 (1.2-5.4) 11/15/20 05:21 [place] # (Auto) 1.3 K/mm3 (0.0-0.8) H 11/15/20 05:21 Eos # (Auto) 0.1 K/mm3 (0.0-0.4) 11/15/20 05:21 Baso # (Auto) 0.0 K/mm3 (0.0-0.1) 11/15/20 05:21 Seg Neutrophils % 67.2 % (40.0-70.0) 11/15/20 05:21 Seg Neutrophils # 6.8 K/mm3 (1.8-7.7) 11/15/20 05:21 PT 11.5 Sec. (12.2-14.9) L 11/11/20 09:02 INR 0.86 (0.87-1.13) L 11/11/20 09:02 APTT 25.5 Sec. (24.2-36.6) 11/11/20 09:02 Thrombin Time 17.0 Sec. (15.1-19.6) 11/11/20 09:02 ABG pH 7.461 (7.320-7.450) H 11/15/20 04:07 POC ABG pCO2 35.7 mmHg (32.0-48.0) 11/15/20 04:07 ABG pCO2 33.9 mm Hg 11/11/20 10:45 POC ABG pO2 96.9 mmHg (83-108) 11/15/20 04:07 ABG pO2 222.2 mm Hg (80.0-90.0) H 11/11/20 10:45 POC ABG HCO3 24.9 11/15/20 04:07 ABG HCO3 24.9 mmol/L (20.0-26.0) 11/11/20 10:45 ABG O2 Saturation 96.9 (0-100) 11/15/20 04:07 ABG O2 Content 19.4 (0.0-44) 11/11/20 10:45 POC ABG Base Excess 1.4 11/15/20 04:07 ABG Base Excess 1.9 mmol/L (-2.0-3.0) 11/11/20 10:45 ABG Hemoglobin 13.0 (12.0-17.5) 11/15/20 04:07 ABG Oxyhemoglobin 96 (94-98) 11/15/20 04:07 ABG Carboxyhemoglobin 0.6 % (0.0-5.0) 11/11/20 10:45 ABG Methemoglobin 0.3 (0.0-1.5) 11/15/20 04:07 ABG Sodium 132.6 mmol/L (136.0-145.0) L 11/15/20 04:07 ABG Potassium 3.6 mmol/L (3.40-4.50) 11/15/20 04:07 ABG Chloride 102.0 mmol/L (98-107) 11/15/20 04:07 ABG Glucose 114 mg/dL (65-95) H 11/15/20 04:07 Oxyhemoglobin 98.5 % (95.0-99.0) 11/11/20 10:45 Carboxyhemoglobin 0.6 (0.5-1.5) 11/15/20 04:07 FiO2 21 % 11/11/20 10:45 FiO2 % 30 11/15/20 04:07 Sodium 134 mmol/L (137-145) L 11/15/20 05:21 Potassium 3.8 mmol/L (3.6-5.0) 11/15/20 05:21 Chloride 101.0 mmol/L (98-107) 11/15/20 05:21 Carbon Dioxide 28 mmol/L (22-30) 11/15/20 05:21 Anion Gap 9 mmol/L 11/15/20 05:21 BUN 14 mg/dL (9-20) 11/15/20 05:21 Creatinine 0.7 mg/dL (0.8-1.3) L 11/15/20 05:21 Estimated GFR > 60 ml/min 11/15/20 05:21 BUN/Creatinine Ratio 20 % 11/15/20 05:21 Glucose 106 mg/dL (75-100) H 11/15/20 05:21 POC Glucose 104 mg/dL (70-105) 11/14/20 23:07 Hemoglobin A1c 5.4 % (4-6) 11/12/20 07:26 Calcium 8.9 mg/dL (8.4-10.2) 11/15/20 05:21 Magnesium 2.00 mg/dL (1.7-2.3) 11/11/20 09:02 Total Bilirubin 0.40 mg/dL (0.1-1.2) 11/15/20 05:21 AST 54 units/L (5-40) H 11/15/20 05:21 ALT 58 units/L (7-56) H 11/15/20 05:21 Alkaline Phosphatase 97 units/L (35-129) 11/15/20 05:21 Ammonia 29.0 umol/L (25-60) 11/12/20 08:47 Total Creatine Kinase 169 units/L (55-170) 11/11/20 09:02 CK-MB (CK-2) 6.6 ng/mL (0.0-4.0) H 11/11/20 09:02 CK-MB (CK-2) Rel Index 3.9 (0-4) 11/11/20 09:02 Troponin T < 0.010 ng/mL (0.00-0.029) 11/11/20 09:02 Total Protein 6.3 g/dL (6.3-8.2) 11/15/20 05:21 Albumin 2.8 g/dL (3.9-5) L 11/15/20 05:21 Albumin/Globulin Ratio 0.8 % 11/15/20 05:21 Arterial Blood Glucose 114 mg/dL (65-95) H 11/15/20 04:07 Arterial Blood Ionized Calcium 4.9 mg/dL (4.6-5.3) 11/15/20 04:07 Urine Color Yellow (Yellow) 11/11/20 20:27 Urine Turbidity Clear (Clear) 11/11/20 20:27 Urine pH 6.0 (5.0-7.0) 11/11/20 20: Ur Specific [place] 1.045 (1.003-1.030) H 11/11/20 20: Urine Protein 100 mg/dl mg/dL (Negative) 11/11/20 20: Urine Glucose (UA) Neg mg/dL (Negative) 11/11/20 20: Urine Ketones Neg mg/dL (Negative) 11/11/20 20: Urine Blood Sm (Negative) 11/11/20 20: Urine Nitrite Neg (Negative) 11/11/20 20: Urine Bilirubin Neg (Negative) 11/11/20 20: Urine Urobilinogen 4.0 mg/dL (<2.0) 11/11/20 20: Ur Leukocyte Esterase Neg (Negative) 11/11/20 20: Urine WBC (Auto) 1.0 /HPF (0.0-6.0) 11/11/20 20: Urine RBC (Auto) 4.0 /HPF (0.0-6.0) 11/11/20 20: U Epithel Cells (Auto) 12.0 /HPF (0-13.0) 11/11/20 20: Urine Bacteria (Auto) 1+ /HPF (Negative) 11/11/20 20: Urine Mucus Few /HPF 11/11/20 20:27 Urine Opiates Screen Negative 11/11/20 20: Urine Methadone Screen Negative 11/11/20 20: Ur Barbiturates Screen Positive 11/11/20 20: Ur Phencyclidine Scrn Negative 11/11/20 20: Ur Amphetamines Screen Negative 11/11/20 20: Phenobarbital 4.3 ug/mL (15.0-40.0) L 11/12/20 08:47 U Benzodiazepines Scrn Negative 11/11/20 20: Urine Cocaine Screen Negative 11/11/20 20: U Marijuana (THC) Screen Negative 11/11/20 20: Drugs of Abuse Note Disclamer 11/11/20 20: Plasma/Serum Alcohol < 0.01 % (0-0.07) 11/11/20 09:02 Coronavirus (PCR) Negative (Negative) 11/12/20 08:00 [place]/IV: Voiding Method Indwelling Catheter Active Medications - Current Medications Current Medications: Generic Name Dose Route Start Last Admin Trade Name Freq PRN Reason Stop Dose Admin Acetaminophen 650 mg 11/11/20 22:58 Acetaminophen 325 Mg Tab PO Q4H PRN Pain MILD(1-3)/Fever >100.5/BAR Albuterol 2.5 mg 11/11/20 23:18 Albuterol 2.5 Mg/3 Ml Nebu IH Q3HRT PRN Wheezing Albuterol/Ipratropium 1 ampul 11/14/20 20:00 11/15/20 07:14 Ipratropium/Albuterol Sulfate 3 Ml Ampul.Neb IH 1 ampul Q6HRT KIRK Administration Lipase/Protease/Amylase 1 each 11/12/20 12:00 Lipase 10,500/Protease 25,000/Amylase 43,750 (Units) Dr Rangel FEEDTUBE PRN PRN For Clogged Feeding Tube Dextrose 50 ml 11/11/20 22:11 11/12/20 00:48 Dextrose 50% In Water (25gm) 50 Ml Syringe IV 25 ml ONCE PRN Administration Hypoglycemia Protocol Enoxaparin Sodium 40 mg 11/12/20 22:00 11/14/20 21:39 Enoxaparin 40 Mg/0.4 Ml Inj SUB-Q 40 mg QDAY@2200 KIRK Administration Protocol Famotidine 20 mg 11/15/20 10:00 Famotidine 20 Mg Tab PO BID KIRK Folic Acid 1 mg 11/16/20 10:00 Folic Acid 1 Mg Tab PO DAILY [facility] Hydralazine HCl 10 mg 11/12/20 10:30 11/14/20 07:30 Hydralazine 20 Mg/1 Ml Inj IV 10 mg Q4H PRN Administration Hypertension Hydrophilic Ointment 1 applic 11/11/20 09:14 Lip Therapy Vaseline TP Q2HR PRN Dry Lips Sodium Chloride 1,000 mls @ 75 mls/hr 11/11/20 23:00 11/13/20 18:49 Nacl 0.9% 1000 Ml IV 75 mls/hr DIRECT KIRK Administration Levetiracetam 1,500 mg/ 115 mls @ 400 mls/hr 11/12/20 10:00 11/14/20 21:38 Dextrose IV 400 mls/hr Q12HR KIRK Administration Insulin Human Regular 0 units 11/12/20 18:00 11/15/20 00:00 Insulin Regular, Human 100 Units/1 Ml SUB-Q Not Given Q6H [facility] Protocol Metoclopramide HCl 10 mg 11/11/20 22:58 Metoclopramide 10 Mg/2 Ml Inj IV Q6H PRN Nausea And Vomiting Multi-Ingred Cream/Lotion/Oil/Oint 1 applic 11/11/20 09:14 Mineral Oil/Petrolatum, White Ophth Oint 3.5 Gm OU Q4HR PRN Dry Eye(s) Multivitamins 1 each 11/13/20 00:00 11/15/20 04:09 Multivitamins ,Therapeutic Tab PO 1 each Q24H KIRK Administration Naloxone HCl 2 mg 11/11/20 08:33 Naloxone 0.4 Mg/1 Ml Inj IV Q2MIN PRN Res Rate </= 8 or 02 SAT < 92% Ondansetron HCl 4 mg 11/11/20 22:58 Ondansetron 4 Mg/2 Ml Inj IV Q3H PRN Nausea And Vomiting Phenobarbital 15 mg 11/11/20 23:45 11/14/20 21:39 Phenobarbital 15 Mg Tab PO 15 mg BID KIRK Administration Simple Syrup 15 ml 11/12/20 12:00 Simple Syrup 15 Ml FEEDTUBE PRN PRN Hypoglycemia Simple Syrup 30 ml 11/12/20 12:00 Simple Syrup 15 Ml FEEDTUBE PRN PRN Hypoglycemia Sodium Bicarbonate 325 mg 11/12/20 12:00 Sodium Bicarbonate 325 Mg Tab FEEDTUBE PRN PRN For Clogged Feeding Tube Sodium Chloride 10 ml 11/11/20 23:00 11/14/20 21:40 Sodium Chloride 0.9% 10 Ml Flush Syringe IV 10 ml BID KIRK Administration Sodium Chloride 10 ml 11/11/20 22:58 Sodium Chloride 0.9% 10 Ml Flush Syringe IV PRN PRN LINE FLUSH Thiamine HCl 100 mg 11/16/20 10:00 Thiamine 100 Mg Tab PO QDAY [facility] Nutrition/Malnutrition Assess - Dietary Evaluation Nutrition/Malnutrition Findings: Nutrition Notes Start: 11/12/20 08:26 Freq: Status: Active Protocol: Document 11/13/20 11:07 JOHANA (Rec: 11/13/20 11:10 JOHANA [id number]) Nutrition Notes Need for Assessment generated from: animal keeper head,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 Pt currently being followed by RD. Will f/u as noted below. Nutrition Intervention Follow-Up By: 11/15/20 Additional Comments F/U for TF start and tolerance
[2020-11-15] MEDS: SODIUM CHLORIDE 0.9% 1000 ML 1,000 ML IV SCH (11:02)
[2020-11-15] MEDS: levETIRAcetam 1,500 MG in DEXTROSE 5% IN WATER 100 ML IV SCH ×2 (11:02→21:16)
[2020-11-15] MEDS: PHENobarbital 15 MG TAB PO SCH ×2 (11:03→21:14)
[2020-11-15] MEDS: FAMOTIDINE 20 MG TAB PO SCH ×2 (11:03→21:15)
[2020-11-15] MEDS: INSULIN REGULAR, HUMAN 100 UNITS/1 ML SUB-Q SCH ×3 (12:48→17:32)
--- NOTE | 2020-11-15 13:04 | Progress Note ---
Assessment and Plan 11/12/20 encephalopathy w/up in progress on vent for airway protection Still unresponsive cont current mgmt 11/15 unch attempt spontaneous breathing trials keep intubated for airway protection Subjective Date of service: 11/15/20 Interval history: 11/15/20 No changes on vent stable vs will open eyes some ?spont vent neuro eval in progress EEG non specific non focal Objective - Constitutional Vitals: Vital Signs - 12hr 11/15/20 11/15/20 11/15/20 01:00 01:10 01:20 Temperature Pulse Rate 71 74 72 Pulse Rate [ Anterior Bilateral Throughout] Pulse Rate [ From Monitor] Respiratory 18 16 18 Rate Respiratory Rate [Anterior Bilateral Throughout] Blood Pressure 153/83 153/83 153/83 O2 Sat by Pulse 100 100 100 Oximetry 11/15/20 11/15/20 11/15/20 01:30 01:40 01:50 Temperature Pulse Rate 70 73 68 Pulse Rate [ Anterior Bilateral Throughout] Pulse Rate [ From Monitor] Respiratory 18 18 18 Rate Respiratory Rate [Anterior Bilateral Throughout] Blood Pressure 153/83 153/83 153/83 O2 Sat by Pulse 100 100 100 Oximetry 11/15/20 11/15/20 11/15/20 02:00 02:10 02:20 Temperature Pulse Rate 74 73 69 Pulse Rate [ Anterior Bilateral Throughout] Pulse Rate [ From Monitor] Respiratory 16 16 18 Rate Respiratory Rate [Anterior Bilateral Throughout] Blood Pressure 151/86 151/86 151/86 O2 Sat by Pulse 100 100 100 Oximetry 11/15/20 11/15/20 11/15/20 02:30 02:40 02:50 Temperature Pulse Rate 77 77 72 Pulse Rate [ Anterior Bilateral Throughout] Pulse Rate [ From Monitor] Respiratory 19 16 18 Rate Respiratory Rate [Anterior Bilateral Throughout] Blood Pressure 151/86 151/86 151/86 O2 Sat by Pulse 100 100 100 Oximetry 11/15/20 11/15/20 11/15/20 03:00 03:10 03:20 Temperature Pulse Rate 73 84 96 H Pulse Rate [ Anterior Bilateral Throughout] Pulse Rate [ From Monitor] Respiratory 16 18 21 Rate Respiratory Rate [Anterior Bilateral Throughout] Blood Pressure 139/82 139/82 139/82 O2 Sat by Pulse 100 100 100 Oximetry 11/15/20 11/15/20 11/15/20 03:30 03:39 03:40 Temperature Pulse Rate 81 76 85 Pulse Rate [ Anterior Bilateral Throughout] Pulse Rate [ From Monitor] Respiratory 20 21 Rate Respiratory Rate [Anterior Bilateral Throughout] Blood Pressure 139/82 139/82 139/82 O2 Sat by Pulse 99 98 Oximetry 11/15/20 11/15/20 11/15/20 03:44 03:50 04:00 Temperature 98.7 F Pulse Rate 72 79 Pulse Rate [ Anterior Bilateral Throughout] Pulse Rate [ 78 From Monitor] Respiratory 19 20 Rate Respiratory Rate [Anterior Bilateral Throughout] Blood Pressure 139/82 162/90 O2 Sat by Pulse 99 99 Oximetry 11/15/20 11/15/20 11/15/20 04:10 04:20 04:30 Temperature Pulse Rate 78 73 68 Pulse Rate [ Anterior Bilateral Throughout] Pulse Rate [ From Monitor] Respiratory 19 20 18 Rate Respiratory Rate [Anterior Bilateral Throughout] Blood Pressure 162/90 162/90 162/90 O2 Sat by Pulse 98 98 97 Oximetry 11/15/20 11/15/20 11/15/20 04:40 04:50 05:00 Temperature Pulse Rate 73 73 71 Pulse Rate [ Anterior Bilateral Throughout] Pulse Rate [ From Monitor] Respiratory 19 18 18 Rate Respiratory Rate [Anterior Bilateral Throughout] Blood Pressure 162/90 162/90 153/83 O2 Sat by Pulse 97 97 98 Oximetry 11/15/20 11/15/20 11/15/20 05:10 05:20 05:30 Temperature Pulse Rate 82 82 71 Pulse Rate [ Anterior Bilateral Throughout] Pulse Rate [ From Monitor] Respiratory 22 22 18 Rate Respiratory Rate [Anterior Bilateral Throughout] Blood Pressure 153/83 153/83 153/83 O2 Sat by Pulse 99 98 97 Oximetry 11/15/20 11/15/20 11/15/20 05:40 05:50 06:00 Temperature Pulse Rate 68 71 67 Pulse Rate [ Anterior Bilateral Throughout] Pulse Rate [ From Monitor] Respiratory 18 17 18 Rate Respiratory Rate [Anterior Bilateral Throughout] Blood Pressure 153/83 153/83 140/79 O2 Sat by Pulse 97 97 97 Oximetry 11/15/20 11/15/20 11/15/20 06:10 06:20 06:30 Temperature Pulse Rate 69 69 73 Pulse Rate [ Anterior Bilateral Throughout] Pulse Rate [ From Monitor] Respiratory 17 16 17 Rate Respiratory Rate [Anterior Bilateral Throughout] Blood Pressure 140/79 140/79 140/79 O2 Sat by Pulse 98 98 98 Oximetry 11/15/20 11/15/20 11/15/20 06:40 06:50 07:00 Temperature Pulse Rate 66 73 64 Pulse Rate [ Anterior Bilateral Throughout] Pulse Rate [ From Monitor] Respiratory 18 20 18 Rate Respiratory Rate [Anterior Bilateral Throughout] Blood Pressure 140/79 140/79 138/76 O2 Sat by Pulse 98 98 97 Oximetry 11/15/20 11/15/20 11/15/20 07:10 07:14 07:20 Temperature Pulse Rate 64 72 79 Pulse Rate [ 73 Anterior Bilateral Throughout] Pulse Rate [ From Monitor] Respiratory 18 19 Rate Respiratory 16 Rate [Anterior Bilateral Throughout] Blood Pressure 138/76 138/76 138/76 O2 Sat by Pulse 98 98 99 Oximetry 11/15/20 11/15/20 11/15/20 07:30 07:40 07:50 Temperature Pulse Rate 69 67 73 Pulse Rate [ Anterior Bilateral Throughout] Pulse Rate [ From Monitor] Respiratory 18 18 18 Rate Respiratory Rate [Anterior Bilateral Throughout] Blood Pressure 138/76 138/76 138/76 O2 Sat by Pulse 98 99 98 Oximetry 11/15/20 11/15/20 11/15/20 08:00 08:10 08:20 Temperature 99.6 F Pulse Rate 75 79 80 Pulse Rate [ Anterior Bilateral Throughout] Pulse Rate [ From Monitor] Respiratory 17 19 15 Rate Respiratory Rate [Anterior Bilateral Throughout] Blood Pressure 138/76 164/91 164/91 O2 Sat by Pulse 99 98 98 Oximetry 11/15/20 11/15/20 11/15/20 08:30 08:40 08:50 Temperature Pulse Rate 78 80 80 Pulse Rate [ Anterior Bilateral Throughout] Pulse Rate [ From Monitor] Respiratory 17 15 19 Rate Respiratory Rate [Anterior Bilateral Throughout] Blood Pressure 164/91 164/91 164/91 O2 Sat by Pulse 97 97 96 Oximetry 11/15/20 11/15/20 11/15/20 09:00 09:10 09:20 Temperature Pulse Rate 77 72 70 Pulse Rate [ Anterior Bilateral Throughout] Pulse Rate [ From Monitor] Respiratory 15 18 18 Rate Respiratory Rate [Anterior Bilateral Throughout] Blood Pressure 164/90 164/90 164/90 O2 Sat by Pulse 96 96 95 Oximetry 11/15/20 11/15/20 11/15/20 09:30 09:40 09:50 Temperature Pulse Rate 67 74 66 Pulse Rate [ Anterior Bilateral Throughout] Pulse Rate [ From Monitor] Respiratory 18 16 18 Rate Respiratory Rate [Anterior Bilateral Throughout] Blood Pressure 164/90 164/90 164/90 O2 Sat by Pulse 96 98 98 Oximetry 11/15/20 11/15/20 11/15/20 10:00 10:10 10:20 Temperature Pulse Rate 72 67 72 Pulse Rate [ Anterior Bilateral Throughout] Pulse Rate [ From Monitor] Respiratory 15 18 15 Rate Respiratory Rate [Anterior Bilateral Throughout] Blood Pressure 157/84 157/84 157/84 O2 Sat by Pulse 98 98 98 Oximetry 11/15/20 11/15/20 11/15/20 10:30 10:40 10:50 Temperature Pulse Rate 73 74 68 Pulse Rate [ Anterior Bilateral Throughout] Pulse Rate [ From Monitor] Respiratory 15 18 18 Rate Respiratory Rate [Anterior Bilateral Throughout] Blood Pressure 157/84 157/84 157/84 O2 Sat by Pulse 98 99 99 Oximetry 11/15/20 11/15/20 11/15/20 11:00 11:06 11:10 Temperature Pulse Rate 74 75 79 Pulse Rate [ Anterior Bilateral Throughout] Pulse Rate [ From Monitor] Respiratory 15 16 Rate Respiratory Rate [Anterior Bilateral Throughout] Blood Pressure 168/93 168/93 168/93 O2 Sat by Pulse 98 98 99 Oximetry 11/15/20 11/15/20 11/15/20 11:20 11:30 11:40 Temperature Pulse Rate 69 65 85 Pulse Rate [ Anterior Bilateral Throughout] Pulse Rate [ From Monitor] Respiratory 17 18 19 Rate Respiratory Rate [Anterior Bilateral Throughout] Blood Pressure 168/93 168/93 168/93 O2 Sat by Pulse 99 99 97 Oximetry 11/15/20 11/15/20 11/15/20 11:50 12:00 12:10 Temperature 99.4 F Pulse Rate 67 90 74 Pulse Rate [ Anterior Bilateral Throughout] Pulse Rate [ From Monitor] Respiratory 19 24 21 Rate Respiratory Rate [Anterior Bilateral Throughout] Blood Pressure 168/93 177/94 177/94 O2 Sat by Pulse 97 96 97 Oximetry 11/15/20 11/15/20 11/15/20 12:20 12:30 12:40 Temperature Pulse Rate 71 67 64 Pulse Rate [ Anterior Bilateral Throughout] Pulse Rate [ From Monitor] Respiratory 18 18 18 Rate Respiratory Rate [Anterior Bilateral Throughout] Blood Pressure 177/94 177/94 177/94 O2 Sat by Pulse 97 97 98 Oximetry 11/15/20 12:50 Temperature Pulse Rate 68 Pulse Rate [ Anterior Bilateral Throughout] Pulse Rate [ From Monitor] Respiratory 17 Rate Respiratory Rate [Anterior Bilateral Throughout] Blood Pressure 177/94 O2 Sat by Pulse 98 Oximetry General appearance: Present: other (unresponsive) - Neck Neck: supple - Respiratory Respiratory effort: normal Respiratory: negative: CTA (clear diminished) - Cardiovascular Rhythm: regular Extremities: No edema - Gastrointestinal General gastrointestinal: Present: deferred - Neurologic Neurologic: other (non focal min response ) - Labs CBC & Chem 7: 11/15/20 05:21 11/15/20 05:21 Labs: Abnormal lab results 11/14/20 11/14/20 11/14/20 Range/Units 18:04 18:45 21:05 Hgb (11.8-15.2) gm/dl Hct (35.5-45.6) % RDW (13.2-15.2) % [place] % (Auto) (0.0-7.3) % [place] # (Auto) (0.0-0.8) K/mm3 ABG pH (7.320-7.450) ABG Sodium (136.0-145.0) mmol/L ABG Glucose (65-95) mg/dL Sodium (137-145) mmol/L Creatinine (0.8-1.3) mg/dL Glucose (75-100) mg/dL POC Glucose 119 H 116 H 109 H (70-105) mg/dL AST (5-40) units/L ALT (7-56) units/L Albumin (3.9-5) g/dL Arterial Blood Glucose (65-95) mg/dL 11/15/20 11/15/20 11/15/20 Range/Units 04:07 05:21 05:21 Hgb 11.6 L (11.8-15.2) gm/dl Hct 35.1 L (35.5-45.6) % RDW 15.7 H (13.2-15.2) % [place] % (Auto) 12.7 H (0.0-7.3) % [place] # (Auto) 1.3 H (0.0-0.8) K/mm3 ABG pH 7.461 H (7.320-7.450) ABG Sodium 132.6 L (136.0-145.0) mmol/L ABG Glucose 114 H (65-95) mg/dL Sodium 134 L (137-145) mmol/L Creatinine 0.7 L (0.8-1.3) mg/dL Glucose 106 H (75-100) mg/dL POC Glucose (70-105) mg/dL AST 54 H (5-40) units/L ALT 58 H (7-56) units/L Albumin 2.8 L (3.9-5) g/dL Arterial Blood Glucose 114 H (65-95) mg/dL - Imaging and cardiology Chest x-ray: image reviewed (naf ET tube ) Medications & Allergies - Medications Allergies/Adverse Reactions: Allergies No Known Allergies Allergy (Verified 02/24/18 09:21) Home Medications: Home Medications Medication Instructions Recorded Confirmed Last Taken Type PHENobarbitaL [PHENobarbital] 15 mg PO BID 30 Days #60 tablet 05/30/20 11/12/20 Unknown Rx levETIRAcetam [Keppra TAB] 500 mg PO BID #60 tablet 05/30/20 08/12/20 Unknown Rx Vitamin B-1 100 mg PO DAILY 08/12/20 11/12/20 Unknown History levETIRAcetam [Keppra TAB] 1,000 mg PO BID 30 Days #60 tab 08/12/20 Unknown Rx levETIRAcetam [Keppra TAB] 1,000 mg PO BID 90 Days #180 tab 10/01/20 Unknown Rx haloperidoL [Haloperidol] 5 mg PO ONCE 11/12/20 11/12/20 Unknown History Active Medications: Generic Name Dose Route Start Last Admin Trade Name Freq PRN Reason Stop Dose Admin Acetaminophen 650 mg 11/11/20 22:58 Acetaminophen 325 Mg Tab PO Q4H PRN Pain MILD(1-3)/Fever >100.5/BAR Albuterol 2.5 mg 11/11/20 23:18 Albuterol 2.5 Mg/3 Ml Nebu IH Q3HRT PRN Wheezing Albuterol/Ipratropium 1 ampul 11/14/20 20:00 11/15/20 07:14 Ipratropium/Albuterol Sulfate 3 Ml Ampul.Neb IH 1 ampul Q6HRT KIRK Administration Lipase/Protease/Amylase 1 each 11/12/20 12:00 Lipase 10,500/Protease 25,000/Amylase 43,750 (Units) Dr Rangel FEEDTUBE PRN PRN For Clogged Feeding Tube Dextrose 50 ml 11/11/20 22:11 11/12/20 00:48 Dextrose 50% In Water (25gm) 50 Ml Syringe IV 25 ml ONCE PRN Administration Hypoglycemia Protocol Enoxaparin Sodium 40 mg 11/12/20 22:00 11/14/20 21:39 Enoxaparin 40 Mg/0.4 Ml Inj SUB-Q 40 mg QDAY@2200 KIRK Administration Protocol Famotidine 20 mg 11/15/20 10:00 11/15/20 11:03 Famotidine 20 Mg Tab PO 20 mg BID KIRK Administration Folic Acid 1 mg 11/16/20 10:00 Folic Acid 1 Mg Tab PO DAILY [facility] Hydralazine HCl 10 mg 11/12/20 10:30 11/14/20 07:30 Hydralazine 20 Mg/1 Ml Inj IV 10 mg Q4H PRN Administration Hypertension Hydrophilic Ointment 1 applic 11/11/20 09:14 Lip Therapy Vaseline TP Q2HR PRN Dry Lips Sodium Chloride 1,000 mls @ 75 mls/hr 11/11/20 23:00 11/15/20 11:02 Nacl 0.9% 1000 Ml IV 75 mls/hr DIRECT KIRK Administration Levetiracetam 1,500 mg/ 115 mls @ 400 mls/hr 11/12/20 10:00 11/15/20 11:02 Dextrose IV 400 mls/hr Q12HR KIRK Administration Insulin Human Regular 0 units 11/12/20 18:00 11/15/20 00:00 Insulin Regular, Human 100 Units/1 Ml SUB-Q Not Given Q6H [facility] Protocol Metoclopramide HCl 10 mg 11/11/20 22:58 Metoclopramide 10 Mg/2 Ml Inj IV Q6H PRN Nausea And Vomiting Multi-Ingred Cream/Lotion/Oil/Oint 1 applic 11/11/20 09:14 Mineral Oil/Petrolatum, White Ophth Oint 3.5 Gm OU Q4HR PRN Dry Eye(s) Multivitamins 1 each 11/13/20 00:00 11/15/20 04:09 Multivitamins ,Therapeutic Tab PO 1 each Q24H KIRK Administration Naloxone HCl 2 mg 11/11/20 08:33 Naloxone 0.4 Mg/1 Ml Inj IV Q2MIN PRN Res Rate </= 8 or 02 SAT < 92% Ondansetron HCl 4 mg 11/11/20 22:58 Ondansetron 4 Mg/2 Ml Inj IV Q3H PRN Nausea And Vomiting Phenobarbital 15 mg 11/11/20 23:45 11/15/20 11:03 Phenobarbital 15 Mg Tab PO 15 mg BID KIRK Administration Simple Syrup 15 ml 11/12/20 12:00 Simple Syrup 15 Ml FEEDTUBE PRN PRN Hypoglycemia Simple Syrup 30 ml 11/12/20 12:00 Simple Syrup 15 Ml FEEDTUBE PRN PRN Hypoglycemia Sodium Bicarbonate 325 mg 11/12/20 12:00 Sodium Bicarbonate 325 Mg Tab FEEDTUBE PRN PRN For Clogged Feeding Tube Sodium Chloride 10 ml 11/11/20 23:00 11/15/20 11:03 Sodium Chloride 0.9% 10 Ml Flush Syringe IV Not Given BID [facility] Sodium Chloride 10 ml 11/11/20 22:58 Sodium Chloride 0.9% 10 Ml Flush Syringe IV PRN PRN LINE FLUSH Thiamine HCl 100 mg 11/16/20 10:00 Thiamine 100 Mg Tab PO QDAY [facility] HEART Score - HEART Score Troponin: Troponin T < 0.010 ng/mL (0.00-0.029) 11/11/20 09:02
[2020-11-15] MEDS: ENOXAPARIN 40 MG/0.4 ML INJ SUB-Q SCH (21:14)
[2020-11-16] MEDS: MULTIVITAMINS ,THERAPEUTIC TAB PO SCH (00:26)
[2020-11-16] MEDS: INSULIN REGULAR, HUMAN 100 UNITS/1 ML SUB-Q SCH ×4 (00:26→17:28)
[2020-11-16] MEDS: IPRATROPIUM/ALBUTEROL SULFATE 3 ML AMPUL.NEB IH SCH ×4 (01:33→19:42)
--- NOTE | 2020-11-16 03:33 | XRay Report ---
XR chest 1V ap INDICATION / CLINICAL INFORMATION: follow up respiratory failure. COMPARISON: Radiograph from yesterday. FINDINGS: SUPPORT DEVICES: Unchanged. HEART / MEDIASTINUM: Unchanged. LUNGS / PLEURA: Lung parenchyma is not significantly changed. No pneumothorax. ADDITIONAL FINDINGS: No significant additional findings. IMPRESSION: 1. No significant interval change. Signer Name: Mitch Schaffer MD Signed: 11/16/2020 3:28 AM Workstation Name: [id number]
[2020-11-16 05:17] LABS: Basophils % (Auto) 0.5 % (0.0-1.8); Eosinophils # (Auto) 0.1 K/mm3 (0.0-0.4); Eosinophils % (Auto) 1.5 % (0.0-4.3); Hematocrit 36.3 % (35.5-45.6); Hemoglobin 12.2 gm/dl (11.8-15.2); Lymphocytes # (Auto) 1.7 K/mm3 (1.2-5.4); Lymphocytes % (Auto) 19.5 % (13.4-35.0); Mean Corpuscular HGB Conc 34 % (32-34); Mean Corpuscular Volume 86 fl (84-94); Monocytes % (Auto) 11.8 % (0.0-7.3); Platelet Count 188 K/mm3 (140-440); Red Blood Count 4.24 M/mm3 (3.65-5.03); Red Cell Distribution Width 16.1 % (13.2-15.2)
[2020-11-16 05:34] LABS: Alanine Aminotransferase 48 units/L (7-56); Albumin 2.7 g/dL (3.9-5); Blood Urea Nitrogen 14 mg/dL (9-20); Hemolysis Index 39
[2020-11-16 05:35] LABS: BUN/Creatinine Ratio 23
[2020-11-16] MEDS: levETIRAcetam 1,500 MG in DEXTROSE 5% IN WATER 100 ML IV SCH (09:07)
[2020-11-16] MEDS: FAMOTIDINE 20 MG TAB PO SCH ×2 (09:07→22:57)
[2020-11-16] MEDS: PHENobarbital 15 MG TAB PO SCH ×2 (09:07→23:02)
[2020-11-16] MEDS: FOLIC ACID 1 MG TAB PO SCH (09:07)
[2020-11-16] MEDS: THIAMINE 100 MG TAB PO SCH (09:08)
--- NOTE | 2020-11-16 09:47 | Progress Note ---
Assessment and Plan Assessment and plan: #SIRS -Etiology unknown -UA, CXR, COVID-19 PCR negative #Acute hypoxic respiratory failure -Now on mechanical ventilation, wean as tolerated -VAP -Pulmonary hygiene #Seizure disorder -Patient reportedly had status epilepticus on presentation to the ED -Continued on Keppra and phenobarbital -CT head negative -Neurology following, appreciate recommendations -EEG shows significant encephalopathy, does not rule out epilepsy. #Transaminitis -Trend LFTs #Hypoglycemia, Resolved -Enteral feeds -Accu-Cheks #Tobacco abuse Needs tobacco abuse counseling when extubated #DVT prophylaxis -SCDs, Lovenox #GI prophylaxis -PPI Critical care statement The high probability of a clinically significant, sudden or life threatening deterioration of the [neuro,respiratory] system(s) required my full and direct attention, intervention and personal management. The aggregate critical care time was [35] minutes. This time is in addition to time spent performing reported procedures but includes the following: [x] Data Review and interpretation [x] Patient assessment and monitoring of vital signs [x] Documentation [x] Medication orders and management History Interval history: This is a 60-year-old male with seizure disorder current alcohol and tobacco abuse presents to the hospital on 11/11 after being found unresponsive. On arrival of EMS patient was found to be hypoglycemic and given IV dextrose after which he recovered and refused further care. EMS was called again by family after the patient was found unresponsive and was given Narcan with no change. Patient was noted to have seizure activity and given 7 mg IV Ativan total including 3 from EMS. Patient was loaded with Keppra 2 g and was intubated for airway protection. Patient was found to have metabolic acidosis and hypoglycemia on BMP. Patient was found to be hypothermic and hypertensive in the emergency department. Patient's UDS was positive for barbiturates. Patient was admitted to the hospital service for further work-up with consults to [facility] and neurology. SIRS Acute hypoxic respiratory failure s/p Status epilepticus Acute encephalopathy Seizure disorder Lactic acidosis Hypoglycemia EtOH and tobacco abuse Transaminitis Hyponatremia 11/12. Patient remains intubated. On Keppra and phenobarbital. Neurology evaluation appreciated. EEG ordered. May need transfer to tertiary care for continuous EEG pending EEG results. 11/13. Remains intubated and on antiseizure medications. EEG has been performed but results are pending. Neurology on board 11/14. Remains intubated and on antiseizure medications. EEG has been performed but results are pending. Neurology on board 11/15: EEG is consistent with significant encephalopathy and does not rule out the possibility of epilepsy, patient remains on mechanical ventilation with minimal vent settings. No acute events reported overnight. 11/16: No acute events reported overnight, patient opens eyes spontaneously and withdraws to pain bilateral lower extremities. At the time my examination patient was on CMV 450/18/64/0.30 and has been started on a CPAP trial subsequently. No evidence of generalized seizures noted. [facility] Physical - Constitutional Vitals: Temp Pulse Resp BP Pulse Ox 98.5 F 66 13 136/75 100 11/16/20 07:34 11/16/20 07:55 11/16/20 07:55 11/16/20 07:52 11/16/20 07:52 General appearance: Present: no acute distress, other (unresponsive) - EENT Eyes: Present: PERRL ENT: dentition normal - Neck Neck: Present: normal ROM - Respiratory Respiratory effort: normal Respiratory: bilateral: CTA - Cardiovascular Rhythm: regular Heart Sounds: Present: S1 & S2. Absent: systolic murmur, diastolic murmur - Extremities Extremities: no ischemia, pulses intact, pulses symmetrical, No edema, normal temperature, normal color Peripheral Pulses: within normal limits - Abdominal General gastrointestinal: soft, non-tender, non-distended, normal bowel sounds - Integumentary Integumentary: Present: warm, dry - Psychiatric Psychiatric: other (Withdraws bilateral lower extremities to pain, does not track/follow, intact cough/gag) HEART Score - HEART Score Troponin: Troponin T < 0.010 ng/mL (0.00-0.029) 11/11/20 09:02 Results - Labs CBC & Chem 7: 11/16/20 04:25 11/16/20 04:25 Labs: Laboratory Last Values WBC 8.8 K/mm3 (4.5-11.0) 11/16/20 04:25 RBC 4.24 M/mm3 (3.65-5.03) 11/16/20 04:25 Hgb 12.2 gm/dl (11.8-15.2) 11/16/20 04:25 Hct 36.3 % (35.5-45.6) 11/16/20 04:25 MCV 86 fl (84-94) 11/16/20 04:25 MCH 29 pg (28-32) 11/16/20 04:25 MCHC 34 % (32-34) 11/16/20 04:25 RDW 16.1 % (13.2-15.2) H 11/16/20 04:25 Plt Count 188 K/mm3 (140-440) 11/16/20 04:25 Lymph % (Auto) 19.5 % (13.4-35.0) 11/16/20 04:25 Walsh % (Auto) 11.8 % (0.0-7.3) H 11/16/20 04:25 Eos % (Auto) 1.5 % (0.0-4.3) 11/16/20 04:25 Baso % (Auto) 0.5 % (0.0-1.8) 11/16/20 04:25 Lymph # (Auto) 1.7 K/mm3 (1.2-5.4) 11/16/20 04:25 Walsh # (Auto) 1.0 K/mm3 (0.0-0.8) H 11/16/20 04:25 Eos # (Auto) 0.1 K/mm3 (0.0-0.4) 11/16/20 04:25 Baso # (Auto) 0.0 K/mm3 (0.0-0.1) 11/16/20 04:25 Seg Neutrophils % 66.7 % (40.0-70.0) 11/16/20 04:25 Seg Neutrophils # 5.9 K/mm3 (1.8-7.7) 11/16/20 04:25 PT 11.5 Sec. (12.2-14.9) L 11/11/20 09:02 INR 0.86 (0.87-1.13) L 11/11/20 09:02 APTT 25.5 Sec. (24.2-36.6) 11/11/20 09:02 Thrombin Time 17.0 Sec. (15.1-19.6) 11/11/20 09:02 ABG pH 7.485 (7.320-7.450) H 11/16/20 04:00 POC ABG pCO2 38.0 mmHg (32.0-48.0) 11/16/20 04:00 ABG pCO2 33.9 mm Hg 11/11/20 10:45 POC ABG pO2 108.7 mmHg (83-108) H 11/16/20 04:00 ABG pO2 222.2 mm Hg (80.0-90.0) H 11/11/20 10:45 POC ABG HCO3 28 11/16/20 04:00 ABG HCO3 24.9 mmol/L (20.0-26.0) 11/11/20 10:45 ABG O2 Saturation 97.5 (0-100) 11/16/20 04:00 ABG O2 Content 19.4 (0.0-44) 11/11/20 10:45 POC ABG Base Excess 4.4 11/16/20 04:00 ABG Base Excess 1.9 mmol/L (-2.0-3.0) 11/11/20 10:45 ABG Hemoglobin 11.6 (12.0-17.5) L 11/16/20 04:00 ABG Oxyhemoglobin 96 (94-98) 11/15/20 04:07 ABG Carboxyhemoglobin 0.6 % (0.0-5.0) 11/11/20 10:45 ABG Methemoglobin 0.3 (0.0-1.5) 11/15/20 04:07 ABG Sodium 132.6 mmol/L (136.0-145.0) L 11/16/20 04:00 ABG Potassium 3.7 mmol/L (3.40-4.50) 11/16/20 04:00 ABG Chloride 102.0 mmol/L (98-107) 11/16/20 04:00 ABG Glucose 111 mg/dL (65-95) H 11/16/20 04:00 Oxyhemoglobin 98.5 % (95.0-99.0) 11/11/20 10:45 Carboxyhemoglobin 0.6 (0.5-1.5) 11/15/20 04:07 FiO2 21 % 11/11/20 10:45 FiO2 % 30 11/16/20 04:00 Sodium 136 mmol/L (137-145) L 11/16/20 04:25 Potassium 3.9 mmol/L (3.6-5.0) 11/16/20 04:25 Chloride 99.8 mmol/L (98-107) 11/16/20 04:25 Carbon Dioxide 31 mmol/L (22-30) H 11/16/20 04:25 Anion Gap 9 mmol/L 11/16/20 04:25 BUN 14 mg/dL (9-20) 11/16/20 04:25 Creatinine 0.6 mg/dL (0.8-1.3) L 11/16/20 04:25 Estimated GFR > 60 ml/min 11/16/20 04:25 BUN/Creatinine Ratio 23 % 11/16/20 04:25 Glucose 111 mg/dL (75-100) H 11/16/20 04:25 POC Glucose 105 mg/dL (70-105) 11/16/20 05:04 Hemoglobin A1c 5.4 % (4-6) 11/12/20 07:26 Calcium 9.0 mg/dL (8.4-10.2) 11/16/20 04:25 Magnesium 2.00 mg/dL (1.7-2.3) 11/11/20 09:02 Total Bilirubin 0.40 mg/dL (0.1-1.2) 11/16/20 04:25 AST 45 units/L (5-40) H 11/16/20 04:25 ALT 48 units/L (7-56) 11/16/20 04:25 Alkaline Phosphatase 106 units/L (35-129) 11/16/20 04:25 Ammonia 29.0 umol/L (25-60) 11/12/20 08:47 Total Creatine Kinase 169 units/L (55-170) 11/11/20 09:02 CK-MB (CK-2) 6.6 ng/mL (0.0-4.0) H 11/11/20 09:02 CK-MB (CK-2) Rel Index 3.9 (0-4) 11/11/20 09:02 Troponin T < 0.010 ng/mL (0.00-0.029) 11/11/20 09:02 Total Protein 6.4 g/dL (6.3-8.2) 11/16/20 04:25 Albumin 2.7 g/dL (3.9-5) L 11/16/20 04:25 Albumin/Globulin Ratio 0.7 % 11/16/20 04:25 Arterial Blood Glucose 111 mg/dL (65-95) H 11/16/20 04:00 Arterial Blood Ionized Calcium 4.9 mg/dL (4.6-5.3) 11/16/20 04:00 Urine Color Yellow (Yellow) 11/11/20 20: Urine Turbidity Clear (Clear) 11/11/20 20: Urine pH 6.0 (5.0-7.0) 11/11/20 20: Ur Specific [place] 1.045 (1.003-1.030) H 11/11/20 20:27 Urine Protein 100 mg/dl mg/dL (Negative) 11/11/20 20: Urine Glucose (UA) Neg mg/dL (Negative) 11/11/20 20: Urine Ketones Neg mg/dL (Negative) 11/11/20 20: Urine Blood Sm (Negative) 11/11/20 20: Urine Nitrite Neg (Negative) 11/11/20 20: Urine Bilirubin Neg (Negative) 11/11/20 20: Urine Urobilinogen 4.0 mg/dL (<2.0) 11/11/20 20:27 Ur Leukocyte Esterase Neg (Negative) 11/11/20 20:27 Urine WBC (Auto) 1.0 /HPF (0.0-6.0) 11/11/20 20: Urine RBC (Auto) 4.0 /HPF (0.0-6.0) 11/11/20 20:27 U Epithel Cells (Auto) 12.0 /HPF (0-13.0) 11/11/20 20:27 Urine Bacteria (Auto) 1+ /HPF (Negative) 11/11/20 20:27 Urine Mucus Few /HPF 11/11/20 20:27 Urine Opiates Screen Negative 11/11/20 20:27 Urine Methadone Screen Negative 11/11/20 20:27 Ur Barbiturates Screen Positive 11/11/20 20:27 Ur Phencyclidine Scrn Negative 11/11/20 20: Ur Amphetamines Screen Negative 11/11/20 20:27 Phenobarbital 4.3 ug/mL (15.0-40.0) L 11/12/20 08:47 U Benzodiazepines Scrn Negative 11/11/20 20: Urine Cocaine Screen Negative 11/11/20 20:27 U Marijuana (THC) Screen Negative 11/11/20 20:27 Drugs of Abuse Note Disclamer 11/11/20 20:27 Plasma/Serum Alcohol < 0.01 % (0-0.07) 11/11/20 09:02 Coronavirus (PCR) Negative (Negative) 11/12/20 08:00 [place]/IV: Voiding Method Indwelling Catheter Active Medications - Current Medications Current Medications: Generic Name Dose Route Start Last Admin Trade Name Freq PRN Reason Stop Dose Admin Acetaminophen 650 mg 11/11/20 22:58 Acetaminophen 325 Mg Tab PO Q4H PRN Pain MILD(1-3)/Fever >100.5/BAR Albuterol 2.5 mg 11/11/20 23:18 Albuterol 2.5 Mg/3 Ml Nebu IH Q3HRT PRN Wheezing Albuterol/Ipratropium 1 ampul 11/14/20 20:00 11/16/20 07:55 Ipratropium/Albuterol Sulfate 3 Ml Ampul.Neb IH 1 ampul Q6HRT KIRK Administration Lipase/Protease/Amylase 1 each 11/12/20 12:00 Lipase 10,500/Protease 25,000/Amylase 43,750 (Units) Dr Rangel FEEDTUBE PRN PRN For Clogged Feeding Tube Dextrose 50 ml 11/11/20 22:11 11/12/20 00:48 Dextrose 50% In Water (25gm) 50 Ml Syringe IV 25 ml ONCE PRN Administration Hypoglycemia Protocol Enoxaparin Sodium 40 mg 11/12/20 22:00 11/15/20 21:14 Enoxaparin 40 Mg/0.4 Ml Inj SUB-Q 40 mg QDAY@2200 KIRK Administration Protocol Famotidine 20 mg 11/15/20 10:00 11/16/20 09:07 Famotidine 20 Mg Tab PO 20 mg BID KIRK Administration Folic Acid 1 mg 11/16/20 10:00 11/16/20 09:07 Folic Acid 1 Mg Tab PO 1 mg DAILY KIRK Administration Hydralazine HCl 10 mg 11/12/20 10:30 11/14/20 07:30 Hydralazine 20 Mg/1 Ml Inj IV 10 mg Q4H PRN Administration Hypertension Hydrophilic Ointment 1 applic 11/11/20 09:14 Lip Therapy Vaseline TP Q2HR PRN Dry Lips Levetiracetam 1,500 mg/ 115 mls @ 400 mls/hr 11/12/20 10:00 11/16/20 09:07 Dextrose IV 11/16/20 23:59 400 mls/hr Q12HR KIRK Administration Insulin Human Regular 0 units 11/12/20 18:00 11/16/20 07:56 Insulin Regular, Human 100 Units/1 Ml SUB-Q Not Given Q6H [facility] Protocol Levetiracetam 1,500 mg 11/17/20 10:00 Levetiracetam 500 Mg/5 Ml Oral Liqd PO BID KIRK Metoclopramide HCl 10 mg 11/11/20 22:58 Metoclopramide 10 Mg/2 Ml Inj IV Q6H PRN Nausea And Vomiting Multi-Ingred Cream/Lotion/Oil/Oint 1 applic 11/11/20 09:14 Mineral Oil/Petrolatum, White Ophth Oint 3.5 Gm OU Q4HR PRN Dry Eye(s) Multivitamins 1 each 11/13/20 00:00 11/16/20 00:26 Multivitamins ,Therapeutic Tab PO 1 each Q24H KIRK Administration Naloxone HCl 2 mg 11/11/20 08:33 Naloxone 0.4 Mg/1 Ml Inj IV Q2MIN PRN Res Rate </= 8 or 02 SAT < 92% Ondansetron HCl 4 mg 11/11/20 22:58 Ondansetron 4 Mg/2 Ml Inj IV Q3H PRN Nausea And Vomiting Phenobarbital 15 mg 11/11/20 23:45 11/16/20 09:07 Phenobarbital 15 Mg Tab PO 15 mg BID KIRK Administration Simple Syrup 15 ml 11/12/20 12:00 Simple Syrup 15 Ml FEEDTUBE PRN PRN Hypoglycemia Simple Syrup 30 ml 11/12/20 12:00 Simple Syrup 15 Ml FEEDTUBE PRN PRN Hypoglycemia Sodium Bicarbonate 325 mg 11/12/20 12:00 Sodium Bicarbonate 325 Mg Tab FEEDTUBE PRN PRN For Clogged Feeding Tube Sodium Chloride 10 ml 11/11/20 23:00 11/16/20 09:08 Sodium Chloride 0.9% 10 Ml Flush Syringe IV 10 ml BID KIRK Administration Sodium Chloride 10 ml 11/11/20 22:58 Sodium Chloride 0.9% 10 Ml Flush Syringe IV PRN PRN LINE FLUSH Thiamine HCl 100 mg 11/16/20 10:00 11/16/20 09:08 Thiamine 100 Mg Tab PO 100 mg QDAY KIRK Administration Nutrition/Malnutrition Assess - Dietary Evaluation Nutrition/Malnutrition Findings: Nutrition Notes Start: 11/12/20 08:26 Freq: Status: Active Protocol: Document 11/15/20 09:06 CW (Rec: 11/15/20 09:19 CW [id number]) Nutrition Notes Initial or Follow up Reassessment Current Diagnosis Respiratory Failure,Stroke Other Pertinent Diagnosis Seizures Current Diet Vital AF 1.2 at 60 ml/h Labs/Tests Na 134 Pertinent Medications Thiamine/Folic Acid in NS at 125ml/h Height 5 ft 9 in Weight 70 kg [place] Body Weight (kg) 72.72 BMI 22.8 Weight Status Appropriate Subjective/Other Information F/U TF initiation and tolerance. Pt tolerating TF and TF is at goal of 60 ml/hr. Percent of energy/protein needs met: 98%96% (protein based on average need of 112g) Burn Absent Trauma Absent GI Symptoms None Current % PO Negligible Minimum of two criteria No physical signs of malnutrition #1 Nutrition Diagnosis Inadequate oral intake Diagnosis Progress(for reassessment Continues documentation) Is patient on ventilator? Yes Is Patient Ambulatory and/or Out of Bed No REE-([facility]-confined to bed) [phone] Additional Notes Protein: 84-140 g (1.2-2.0 g/ kgBW) Fluid 1 ml/kcal Nutrition Intervention Change Diet Order: Continue Vital AF at 60 ml/h Nutrition Support: Vital AF 1.2 at 60 ml/hr Flush 100 ml q4h Kcal 1,728 Protein (gm) 108 Fluid (mL) 1,167 Goal #1 Meet 75% of estimated energy and protein needs via TF Anticipated Discharge Needs: Unable to determine at the time Follow-Up By: 11/18/20 Additional Comments F/U for TF tolerance
[2020-11-16] MEDS ORDERED: THIAMINE 100 MG TAB PO SCH (10:00)
[2020-11-16] MEDS ORDERED: VITAMIN B1 100 MG PO SCH (10:00)
--- NOTE | 2020-11-16 11:17 | Progress Note ---
Assessment and Plan 70 y/o male with acute respiratory failure secondary to seizure activity. 11/16/20: Will decrease Keppra to 1000 BID. Obtain MRI as neurology will likely want this. Continue to monitor Mental state and PSV trials as tolerated. Overall prognosis is guarded to poor. Will speak with family as decisions will need to be made in regards to retirement care. No sedatives whatsoever. 11/14/20: Follow up EEG read. No sedation. Follow up Neurology recs. 1. Follow up EEG read 2. No sedation 3. PSV as tolerated 4. Guarded prognosis. CCT 31 minutes. Subjective Date of service: 11/16/20 Interval history: No acute events. Still unresponsive. Neurology has no follow up note yet. EEG read and in chart. Remains on BID keppra and Phenobarb Objective Vital Signs - 12hr 11/15/20 11/15/20 11/15/20 23:11 23:21 23:31 Temperature Pulse Rate 64 66 70 Pulse Rate [ Anterior Bilateral Throughout] Pulse Rate [ From Monitor] Respiratory 18 18 18 Rate Respiratory Rate [Anterior Bilateral Throughout] Blood Pressure 153/75 153/75 153/75 O2 Sat by Pulse 99 99 100 Oximetry 11/15/20 11/15/20 11/15/20 23:34 23:39 23:41 Temperature Pulse Rate 63 64 63 Pulse Rate [ Anterior Bilateral Throughout] Pulse Rate [ From Monitor] Respiratory 18 18 Rate Respiratory Rate [Anterior Bilateral Throughout] Blood Pressure 153/75 153/75 153/75 O2 Sat by Pulse 99 99 100 Oximetry 11/15/20 11/16/20 11/16/20 23:51 00:00 00:11 Temperature 99.4 F Pulse Rate 67 64 62 Pulse Rate [ Anterior Bilateral Throughout] Pulse Rate [ 66 From Monitor] Respiratory 18 18 18 Rate Respiratory Rate [Anterior Bilateral Throughout] Blood Pressure 153/75 140/72 140/72 O2 Sat by Pulse 100 100 100 Oximetry 11/16/20 11/16/20 11/16/20 00:21 00:31 00:41 Temperature Pulse Rate 62 65 63 Pulse Rate [ Anterior Bilateral Throughout] Pulse Rate [ From Monitor] Respiratory 18 18 18 Rate Respiratory Rate [Anterior Bilateral Throughout] Blood Pressure 140/72 140/72 140/72 O2 Sat by Pulse 99 100 100 Oximetry 11/16/20 11/16/20 11/16/20 00:51 01:00 01:11 Temperature Pulse Rate 72 63 70 Pulse Rate [ Anterior Bilateral Throughout] Pulse Rate [ From Monitor] Respiratory 13 18 11 L Rate Respiratory Rate [Anterior Bilateral Throughout] Blood Pressure 140/72 140/73 140/73 O2 Sat by Pulse 100 100 100 Oximetry 11/16/20 11/16/20 11/16/20 01:21 01:31 01:34 Temperature Pulse Rate 61 74 Pulse Rate [ 71 Anterior Bilateral Throughout] Pulse Rate [ From Monitor] Respiratory 18 18 Rate Respiratory 19 Rate [Anterior Bilateral Throughout] Blood Pressure 140/73 140/73 O2 Sat by Pulse 100 100 Oximetry 11/16/20 11/16/20 11/16/20 01:41 01:51 02:00 Temperature Pulse Rate 64 67 66 Pulse Rate [ Anterior Bilateral Throughout] Pulse Rate [ From Monitor] Respiratory 18 18 18 Rate Respiratory Rate [Anterior Bilateral Throughout] Blood Pressure 140/73 140/73 142/71 O2 Sat by Pulse 100 100 100 Oximetry 11/16/20 11/16/20 11/16/20 02:11 02:21 02:30 Temperature Pulse Rate 64 66 72 Pulse Rate [ Anterior Bilateral Throughout] Pulse Rate [ From Monitor] Respiratory 18 18 18 Rate Respiratory Rate [Anterior Bilateral Throughout] Blood Pressure 142/71 142/71 142/71 O2 Sat by Pulse 99 99 100 Oximetry 11/16/20 11/16/20 11/16/20 02:41 02:51 03:00 Temperature Pulse Rate 70 71 70 Pulse Rate [ Anterior Bilateral Throughout] Pulse Rate [ From Monitor] Respiratory 15 18 18 Rate Respiratory Rate [Anterior Bilateral Throughout] Blood Pressure 142/71 142/71 142/71 O2 Sat by Pulse 100 100 100 Oximetry 11/16/20 11/16/20 11/16/20 03:11 03:14 03:21 Temperature Pulse Rate 72 72 71 Pulse Rate [ Anterior Bilateral Throughout] Pulse Rate [ From Monitor] Respiratory 17 15 Rate Respiratory Rate [Anterior Bilateral Throughout] Blood Pressure 144/77 144/77 144/77 O2 Sat by Pulse 100 100 100 Oximetry 11/16/20 11/16/20 11/16/20 03:23 03:31 03:41 Temperature 98.9 F Pulse Rate 66 68 Pulse Rate [ Anterior Bilateral Throughout] Pulse Rate [ From Monitor] Respiratory 18 16 Rate Respiratory Rate [Anterior Bilateral Throughout] Blood Pressure 144/77 144/77 O2 Sat by Pulse 100 100 Oximetry 11/16/20 11/16/20 11/16/20 03:51 04:00 04:11 Temperature Pulse Rate 67 63 78 Pulse Rate [ Anterior Bilateral Throughout] Pulse Rate [ 69 From Monitor] Respiratory 18 18 16 Rate Respiratory Rate [Anterior Bilateral Throughout] Blood Pressure 144/77 140/74 140/74 O2 Sat by Pulse 100 100 100 Oximetry 11/16/20 11/16/20 11/16/20 04:21 04:31 04:41 Temperature Pulse Rate 77 72 72 Pulse Rate [ Anterior Bilateral Throughout] Pulse Rate [ From Monitor] Respiratory 13 17 18 Rate Respiratory Rate [Anterior Bilateral Throughout] Blood Pressure 140/74 140/74 140/74 O2 Sat by Pulse 100 100 100 Oximetry 11/16/20 11/16/20 11/16/20 04:51 05:00 05:11 Temperature Pulse Rate 69 67 73 Pulse Rate [ Anterior Bilateral Throughout] Pulse Rate [ From Monitor] Respiratory 17 18 18 Rate Respiratory Rate [Anterior Bilateral Throughout] Blood Pressure 140/74 146/76 146/76 O2 Sat by Pulse 100 100 100 Oximetry 11/16/20 11/16/20 11/16/20 05:20 05:31 05:41 Temperature Pulse Rate 67 76 68 Pulse Rate [ Anterior Bilateral Throughout] Pulse Rate [ From Monitor] Respiratory 18 18 18 Rate Respiratory Rate [Anterior Bilateral Throughout] Blood Pressure 146/76 146/76 146/76 O2 Sat by Pulse 100 99 100 Oximetry 11/16/20 11/16/20 11/16/20 05:51 06:01 06:11 Temperature Pulse Rate 64 67 65 Pulse Rate [ Anterior Bilateral Throughout] Pulse Rate [ From Monitor] Respiratory 18 18 18 Rate Respiratory Rate [Anterior Bilateral Throughout] Blood Pressure 146/76 168/81 168/81 O2 Sat by Pulse 100 99 99 Oximetry 11/16/20 11/16/20 11/16/20 06:21 06:30 06:41 Temperature Pulse Rate 63 63 65 Pulse Rate [ Anterior Bilateral Throughout] Pulse Rate [ From Monitor] Respiratory 18 18 18 Rate Respiratory Rate [Anterior Bilateral Throughout] Blood Pressure 168/81 168/81 O2 Sat by Pulse 99 99 99 Oximetry 11/16/20 11/16/20 11/16/20 06:51 07:00 07:34 Temperature 98.5 F Pulse Rate 64 64 Pulse Rate [ Anterior Bilateral Throughout] Pulse Rate [ From Monitor] Respiratory 18 18 Rate Respiratory Rate [Anterior Bilateral Throughout] Blood Pressure 168/81 136/75 O2 Sat by Pulse 99 99 Oximetry 11/16/20 11/16/20 11/16/20 07:48 07:52 07:55 Temperature Pulse Rate 71 67 Pulse Rate [ 66 Anterior Bilateral Throughout] Pulse Rate [ From Monitor] Respiratory 12 Rate Respiratory 13 Rate [Anterior Bilateral Throughout] Blood Pressure 136/75 136/75 O2 Sat by Pulse 100 100 Oximetry Constitutional: comatose Ascultation: Bilateral: clear Gastrointestinal: hypoactive bowel sounds Neurologic: non-focal exam, unable to assess CBC and BMP: 11/16/20 04:25 11/16/20 04:25 ABG, PT/INR, D-dimer: ABG ABG pH 7.485 (7.320-7.450) H 11/16/20 04:00 POC ABG pCO2 38.0 mmHg (32.0-48.0) 11/16/20 04:00 ABG pCO2 33.9 mm Hg 11/11/20 10:45 POC ABG pO2 108.7 mmHg (83-108) H 11/16/20 04:00 ABG pO2 222.2 mm Hg (80.0-90.0) H 11/11/20 10:45 POC ABG HCO3 28 11/16/20 04:00 ABG O2 Saturation 97.5 (0-100) 11/16/20 04:00 PT/INR, D-dimer PT 11.5 Sec. (12.2-14.9) L 11/11/20 09:02 INR 0.86 (0.87-1.13) L 11/11/20 09:02 Abnormal lab findings: Abnormal Labs 11/11/20 11/11/20 11/11/20 09:02 09:02 09:02 RBC 5.16 H Hgb Hct RDW 16.1 H Lymph % (Auto) 12.2 L [place] % (Auto) Lymph # (Auto) 1.1 L [place] # (Auto) Seg Neutrophils % 80.5 H PT 11.5 L INR 0.86 L ABG pH POC ABG pCO2 POC ABG pO2 ABG pO2 ABG O2 Saturation ABG Hemoglobin ABG Sodium ABG Glucose Sodium Carbon Dioxide BUN Creatinine Glucose POC Glucose Calcium AST ALT CK-MB (CK-2) 6.6 H Total Protein Albumin Arterial Blood Glucose Ur Specific [place] Phenobarbital 11/11/20 11/11/20 11/11/20 09:02 10:45 20:27 RBC Hgb Hct RDW Lymph % (Auto) [place] % (Auto) Lymph # (Auto) [place] # (Auto) Seg Neutrophils % PT INR ABG pH 7.483 H POC ABG pCO2 POC ABG pO2 ABG pO2 222.2 H ABG O2 Saturation 99.3 H ABG Hemoglobin 13.7 L ABG Sodium ABG Glucose Sodium Carbon Dioxide 20 L BUN Creatinine Glucose 55 L POC Glucose Calcium AST ALT CK-MB (CK-2) Total Protein Albumin Arterial Blood Glucose Ur Specific [place] 1.045 H Phenobarbital 11/11/20 11/11/20 11/11/20 20:34 22:06 23:43 RBC Hgb Hct RDW Lymph % (Auto) [place] % (Auto) Lymph # (Auto) [place] # (Auto) Seg Neutrophils % PT INR ABG pH POC ABG pCO2 POC ABG pO2 ABG pO2 ABG O2 Saturation ABG Hemoglobin ABG Sodium ABG Glucose Sodium Carbon Dioxide BUN Creatinine Glucose 30 L* POC Glucose 161 H 32 L Calcium AST ALT CK-MB (CK-2) Total Protein Albumin Arterial Blood Glucose Ur Specific [place] Phenobarbital 11/12/20 11/12/20 11/12/20 03:51 08:14 08:14 RBC Hgb Hct RDW 15.9 H Lymph % (Auto) [place] % (Auto) Lymph # (Auto) [place] # (Auto) Seg Neutrophils % PT INR ABG pH 7.485 H POC ABG pCO2 31.2 L POC ABG pO2 ABG pO2 ABG O2 Saturation ABG Hemoglobin ABG Sodium 134.1 L ABG Glucose Sodium Carbon Dioxide BUN Creatinine Glucose POC Glucose Calcium AST 45 H ALT CK-MB (CK-2) Total Protein Albumin 3.6 L Arterial Blood Glucose Ur Specific [place] Phenobarbital 11/12/20 11/12/20 11/12/20 08:47 09:45 12:21 RBC Hgb Hct RDW Lymph % (Auto) [place] % (Auto) Lymph # (Auto) [place] # (Auto) Seg Neutrophils % PT INR ABG pH POC ABG pCO2 POC ABG pO2 ABG pO2 ABG O2 Saturation ABG Hemoglobin ABG Sodium ABG Glucose Sodium Carbon Dioxide BUN Creatinine Glucose POC Glucose 115 H 160 H Calcium AST ALT CK-MB (CK-2) Total Protein Albumin Arterial Blood Glucose Ur Specific [place] Phenobarbital 4.3 L 11/12/20 11/12/20 11/13/20 17:42 22:07 03:56 RBC Hgb Hct RDW Lymph % (Auto) [place] % (Auto) Lymph # (Auto) [place] # (Auto) Seg Neutrophils % PT INR ABG pH POC ABG pCO2 POC ABG pO2 124.2 H ABG pO2 ABG O2 Saturation ABG Hemoglobin ABG Sodium 134.0 L ABG Glucose 131 H Sodium Carbon Dioxide BUN Creatinine Glucose POC Glucose 187 H 152 H Calcium AST ALT CK-MB (CK-2) Total Protein Albumin Arterial Blood Glucose 131 H Ur Specific [place] Phenobarbital 11/13/20 11/13/20 11/13/20 04:38 14:24 17:45 RBC Hgb Hct RDW Lymph % (Auto) [place] % (Auto) Lymph # (Auto) [place] # (Auto) Seg Neutrophils % PT INR ABG pH POC ABG pCO2 POC ABG pO2 ABG pO2 ABG O2 Saturation ABG Hemoglobin ABG Sodium ABG Glucose Sodium 136 L Carbon Dioxide BUN 25 H Creatinine Glucose 123 H POC Glucose 108 H 114 H Calcium AST ALT CK-MB (CK-2) Total Protein Albumin Arterial Blood Glucose Ur Specific [place] Phenobarbital 11/13/20 11/14/20 11/14/20 21:14 03:29 06:40 RBC Hgb 11.7 L Hct 35.3 L D RDW 15.8 H Lymph % (Auto) [place] % (Auto) 9.8 H Lymph # (Auto) [place] # (Auto) 1.0 H Seg Neutrophils % PT INR ABG pH POC ABG pCO2 POC ABG pO2 124.2 H ABG pO2 ABG O2 Saturation ABG Hemoglobin 11.9 L ABG Sodium 134.0 L ABG Glucose 108 H Sodium Carbon Dioxide BUN Creatinine Glucose POC Glucose 108 H Calcium AST ALT CK-MB (CK-2) Total Protein Albumin Arterial Blood Glucose 108 H Ur Specific [place] Phenobarbital 11/14/20 11/14/20 11/14/20 06:40 18:04 18:45 RBC Hgb Hct RDW Lymph % (Auto) [place] % (Auto) Lymph # (Auto) [place] # (Auto) Seg Neutrophils % PT INR ABG pH POC ABG pCO2 POC ABG pO2 ABG pO2 ABG O2 Saturation ABG Hemoglobin ABG Sodium ABG Glucose Sodium 134 L Carbon Dioxide BUN Creatinine 0.7 L Glucose 107 H POC Glucose 119 H 116 H Calcium 8.0 L AST 96 H ALT 78 H CK-MB (CK-2) Total Protein 6.0 L Albumin 2.6 L Arterial Blood Glucose Ur Specific [place] Phenobarbital 11/14/20 11/15/20 11/15/20 21:05 04:07 05:21 RBC Hgb 11.6 L Hct 35.1 L RDW 15.7 H Lymph % (Auto) [place] % (Auto) 12.7 H Lymph # (Auto) [place] # (Auto) 1.3 H Seg Neutrophils % PT INR ABG pH 7.461 H POC ABG pCO2 POC ABG pO2 ABG pO2 ABG O2 Saturation ABG Hemoglobin ABG Sodium 132.6 L ABG Glucose 114 H Sodium Carbon Dioxide BUN Creatinine Glucose POC Glucose 109 H Calcium AST ALT CK-MB (CK-2) Total Protein Albumin Arterial Blood Glucose 114 H Ur Specific [place] Phenobarbital 11/15/20 11/15/20 11/16/20 05:21 21:31 04:00 RBC Hgb Hct RDW Lymph % (Auto) [place] % (Auto) Lymph # (Auto) [place] # (Auto) Seg Neutrophils % PT INR ABG pH 7.485 H POC ABG pCO2 POC ABG pO2 108.7 H ABG pO2 ABG O2 Saturation ABG Hemoglobin 11.6 L ABG Sodium 132.6 L ABG Glucose 111 H Sodium 134 L Carbon Dioxide BUN Creatinine 0.7 L Glucose 106 H POC Glucose 109 H Calcium AST 54 H ALT 58 H CK-MB (CK-2) Total Protein Albumin 2.8 L Arterial Blood Glucose 111 H Ur Specific [place] Phenobarbital 11/16/20 11/16/20 04:25 04:25 RBC Hgb Hct RDW 16.1 H Lymph % (Auto) [place] % (Auto) 11.8 H Lymph # (Auto) [place] # (Auto) 1.0 H Seg Neutrophils % PT INR ABG pH POC ABG pCO2 POC ABG pO2 ABG pO2 ABG O2 Saturation ABG Hemoglobin ABG Sodium ABG Glucose Sodium 136 L Carbon Dioxide 31 H BUN Creatinine 0.6 L Glucose 111 H POC Glucose Calcium AST 45 H ALT CK-MB (CK-2) Total Protein Albumin 2.7 L Arterial Blood Glucose Ur Specific [place] Phenobarbital
[2020-11-16] MEDS: ENOXAPARIN 40 MG/0.4 ML INJ SUB-Q SCH (22:54)
[2020-11-16] MEDS: levETIRAcetam 500 MG/5 ML ORAL LIQD PO SCH (22:54)
[2020-11-17] MEDS: MULTIVITAMINS ,THERAPEUTIC TAB PO SCH (01:00)
--- NOTE | 2020-11-17 02:47 | XRay Report ---
XR chest 1V ap INDICATION / CLINICAL INFORMATION: follow up respiratory failure. COMPARISON: Radiograph from yesterday. FINDINGS: SUPPORT DEVICES: Endotracheal tube terminates appropriately at the level of the clavicular heads. En teric tube courses beneath the diaphragm. HEART / MEDIASTINUM: Unchanged. LUNGS / PLEURA: Lung parenchyma is not significantly changed and appears clear. Costophrenic sulci ar e sharp. No pneumothorax. ADDITIONAL FINDINGS: No significant additional findings. IMPRESSION: 1. No significant change. Signer Name: Mitch Schaffer MD Signed: 11/17/2020 2:42 AM Workstation Name: [id number]
[2020-11-17 05:34] LABS: Basophils # (Auto) 0.1 K/mm3 (0.0-0.1); Basophils % (Auto) 0.9 % (0.0-1.8); Eosinophils # (Auto) 0.2 K/mm3 (0.0-0.4); Eosinophils % (Auto) 2.9 % (0.0-4.3); Hematocrit 31.3 % (35.5-45.6); Hemoglobin 10.6 gm/dl (11.8-15.2); Lymphocytes # (Auto) 1.6 K/mm3 (1.2-5.4); Lymphocytes % (Auto) 20.5 % (13.4-35.0); Mean Corpuscular HGB Conc 34 % (32-34); Mean Corpuscular Volume 85 fl (84-94); Monocytes % (Auto) 12.9 % (0.0-7.3); Platelet Count 215 K/mm3 (140-440); Red Blood Count 3.68 M/mm3 (3.65-5.03); Red Cell Distribution Width 15.8 % (13.2-15.2)
[2020-11-17 05:50] LABS: Alanine Aminotransferase 35 units/L (7-56); Albumin 2.5 g/dL (3.9-5); Blood Urea Nitrogen 17 mg/dL (9-20); Calcium 8.7 mg/dL (8.4-10.2); Hemolysis Index 0
[2020-11-17 05:55] LABS: BUN/Creatinine Ratio 28
[2020-11-17] MEDS: IPRATROPIUM/ALBUTEROL SULFATE 3 ML AMPUL.NEB IH SCH ×3 (07:19→20:10)
[2020-11-17] MEDS: INSULIN REGULAR, HUMAN 100 UNITS/1 ML SUB-Q SCH ×4 (07:52→23:15)
[2020-11-17] MEDS: FOLIC ACID 1 MG TAB PO SCH (11:21)
[2020-11-17] MEDS: THIAMINE 100 MG TAB PO SCH (11:21)
[2020-11-17] MEDS: PHENobarbital 15 MG TAB PO SCH ×3 (11:21→21:17)
[2020-11-17] MEDS: FAMOTIDINE 20 MG TAB PO SCH ×3 (11:21→21:16)
[2020-11-17] MEDS: levETIRAcetam 500 MG/5 ML ORAL LIQD PO SCH ×3 (11:22→21:17)
--- NOTE | 2020-11-17 12:16 | Progress Note ---
Assessment and Plan 70 y/o male with acute respiratory failure secondary to seizure activity. 11/17/20: Will attempt extubation today. Patient is a lui of the [facility]. This was found out on yesterday. Once contact is available. Will update them. Remainder is negative. Monitor in ICU post extubation for at least 12-24 hours. 11/16/20: Will decrease Keppra to 1000 BID. Obtain MRI as neurology will likely want this. Continue to monitor Mental state and PSV trials as tolerated. Overall prognosis is guarded to poor. Will speak with family as decisions will need to be made in regards to correction care. No sedatives whatsoever. 11/14/20: Follow up EEG read. No sedation. Follow up Neurology recs. 1. Follow up EEG read 2. No sedation 3. PSV as tolerated 4. Guarded prognosis. CCT 31 minutes. Subjective Date of service: 11/17/20 Interval history: patient more awake today. Still not doing anything purposefully. Otherwise stable. No seizures despite lower keppra dosing. Objective Vital Signs - 12hr 11/17/20 11/17/20 11/17/20 00:21 00:31 00:41 Temperature Pulse Rate 66 66 67 Pulse Rate [ Anterior Bilateral Throughout] Pulse Rate [ From Monitor] Respiratory 18 18 18 Rate Respiratory Rate [Anterior Bilateral Throughout] Blood Pressure 122/66 122/66 122/66 O2 Sat by Pulse 98 98 98 Oximetry 11/17/20 11/17/20 11/17/20 00:51 01:00 01:11 Temperature Pulse Rate 66 67 67 Pulse Rate [ Anterior Bilateral Throughout] Pulse Rate [ From Monitor] Respiratory 18 18 18 Rate Respiratory Rate [Anterior Bilateral Throughout] Blood Pressure 122/66 127/68 122/66 O2 Sat by Pulse 98 98 98 Oximetry 11/17/20 11/17/20 11/17/20 01:21 01:31 01:41 Temperature Pulse Rate 73 68 67 Pulse Rate [ Anterior Bilateral Throughout] Pulse Rate [ From Monitor] Respiratory 17 18 18 Rate Respiratory Rate [Anterior Bilateral Throughout] Blood Pressure 122/66 122/66 127/68 O2 Sat by Pulse 100 99 99 Oximetry 11/17/20 11/17/20 11/17/20 01:51 02:00 02:11 Temperature Pulse Rate 65 67 68 Pulse Rate [ Anterior Bilateral Throughout] Pulse Rate [ From Monitor] Respiratory 18 18 18 Rate Respiratory Rate [Anterior Bilateral Throughout] Blood Pressure 127/68 132/70 132/70 O2 Sat by Pulse 100 100 99 Oximetry 11/17/20 11/17/20 11/17/20 02:21 02:31 02:41 Temperature Pulse Rate 70 72 68 Pulse Rate [ Anterior Bilateral Throughout] Pulse Rate [ From Monitor] Respiratory 18 19 18 Rate Respiratory Rate [Anterior Bilateral Throughout] Blood Pressure 132/70 132/70 132/70 O2 Sat by Pulse 98 99 99 Oximetry 11/17/20 11/17/20 11/17/20 02:51 03:00 03:11 Temperature Pulse Rate 68 66 66 Pulse Rate [ Anterior Bilateral Throughout] Pulse Rate [ From Monitor] Respiratory 18 18 18 Rate Respiratory Rate [Anterior Bilateral Throughout] Blood Pressure 132/70 121/63 121/63 O2 Sat by Pulse 99 99 98 Oximetry 11/17/20 11/17/20 11/17/20 03:21 03:31 03:35 Temperature 99.6 F Pulse Rate 88 70 Pulse Rate [ Anterior Bilateral Throughout] Pulse Rate [ From Monitor] Respiratory 17 18 Rate Respiratory Rate [Anterior Bilateral Throughout] Blood Pressure 121/63 121/63 O2 Sat by Pulse 98 97 Oximetry 11/17/20 11/17/20 11/17/20 03:41 03:51 04:00 Temperature Pulse Rate 70 74 69 Pulse Rate [ Anterior Bilateral Throughout] Pulse Rate [ 71 From Monitor] Respiratory 18 18 18 Rate Respiratory Rate [Anterior Bilateral Throughout] Blood Pressure 121/63 121/63 127/67 O2 Sat by Pulse 97 97 97 Oximetry 11/17/20 11/17/20 11/17/20 04:11 04:21 04:24 Temperature Pulse Rate 68 66 68 Pulse Rate [ Anterior Bilateral Throughout] Pulse Rate [ From Monitor] Respiratory 18 18 Rate Respiratory Rate [Anterior Bilateral Throughout] Blood Pressure 127/67 127/67 127/67 O2 Sat by Pulse 98 98 98 Oximetry 11/17/20 11/17/20 11/17/20 04:31 04:41 04:51 Temperature Pulse Rate 72 69 68 Pulse Rate [ Anterior Bilateral Throughout] Pulse Rate [ From Monitor] Respiratory 18 18 18 Rate Respiratory Rate [Anterior Bilateral Throughout] Blood Pressure 127/67 127/67 127/67 O2 Sat by Pulse 99 98 98 Oximetry 11/17/20 11/17/20 11/17/20 05:00 05:11 05:21 Temperature Pulse Rate 67 67 68 Pulse Rate [ Anterior Bilateral Throughout] Pulse Rate [ From Monitor] Respiratory 18 18 18 Rate Respiratory Rate [Anterior Bilateral Throughout] Blood Pressure 128/70 128/70 127/67 O2 Sat by Pulse 98 98 99 Oximetry 11/17/20 11/17/20 11/17/20 05:31 05:41 05:51 Temperature Pulse Rate 72 77 73 Pulse Rate [ Anterior Bilateral Throughout] Pulse Rate [ From Monitor] Respiratory 18 19 18 Rate Respiratory Rate [Anterior Bilateral Throughout] Blood Pressure 127/67 127/67 127/67 O2 Sat by Pulse 99 99 99 Oximetry 11/17/20 11/17/20 11/17/20 06:00 06:11 06:21 Temperature Pulse Rate 73 76 74 Pulse Rate [ Anterior Bilateral Throughout] Pulse Rate [ From Monitor] Respiratory 18 17 18 Rate Respiratory Rate [Anterior Bilateral Throughout] Blood Pressure 145/78 145/78 145/78 O2 Sat by Pulse 98 100 100 Oximetry 11/17/20 11/17/20 11/17/20 06:31 06:41 06:51 Temperature Pulse Rate 73 71 68 Pulse Rate [ Anterior Bilateral Throughout] Pulse Rate [ From Monitor] Respiratory 18 18 18 Rate Respiratory Rate [Anterior Bilateral Throughout] Blood Pressure 145/78 145/78 145/78 O2 Sat by Pulse 100 98 96 Oximetry 11/17/20 11/17/20 11/17/20 07:00 07:11 07:17 Temperature Pulse Rate 66 65 67 Pulse Rate [ Anterior Bilateral Throughout] Pulse Rate [ From Monitor] Respiratory 18 18 Rate Respiratory Rate [Anterior Bilateral Throughout] Blood Pressure 127/65 127/65 127/65 O2 Sat by Pulse 98 97 97 Oximetry 11/17/20 11/17/20 11/17/20 07:19 07:21 07:31 Temperature 98.6 F Pulse Rate 66 65 Pulse Rate [ 65 Anterior Bilateral Throughout] Pulse Rate [ From Monitor] Respiratory 18 18 Rate Respiratory 18 Rate [Anterior Bilateral Throughout] Blood Pressure 127/65 127/65 O2 Sat by Pulse 97 98 Oximetry 11/17/20 11/17/20 11/17/20 07:41 07:51 08:00 Temperature Pulse Rate 66 66 69 Pulse Rate [ Anterior Bilateral Throughout] Pulse Rate [ From Monitor] Respiratory 18 18 18 Rate Respiratory Rate [Anterior Bilateral Throughout] Blood Pressure 127/65 127/65 143/70 O2 Sat by Pulse 98 98 99 Oximetry 11/17/20 11/17/20 11/17/20 08:11 08:21 08:31 Temperature Pulse Rate 67 74 73 Pulse Rate [ Anterior Bilateral Throughout] Pulse Rate [ From Monitor] Respiratory 18 16 13 Rate Respiratory Rate [Anterior Bilateral Throughout] Blood Pressure 143/70 143/70 143/70 O2 Sat by Pulse 99 98 99 Oximetry 11/17/20 11/17/20 11/17/20 08:41 08:51 09:00 Temperature Pulse Rate 73 73 70 Pulse Rate [ Anterior Bilateral Throughout] Pulse Rate [ From Monitor] Respiratory 19 16 15 Rate Respiratory Rate [Anterior Bilateral Throughout] Blood Pressure 143/70 143/70 143/70 O2 Sat by Pulse 97 98 99 Oximetry 11/17/20 11/17/20 11/17/20 09:11 09:21 09:31 Temperature Pulse Rate 68 71 71 Pulse Rate [ Anterior Bilateral Throughout] Pulse Rate [ From Monitor] Respiratory 15 16 17 Rate Respiratory Rate [Anterior Bilateral Throughout] Blood Pressure 130/79 130/79 130/79 O2 Sat by Pulse 98 98 98 Oximetry 11/17/20 11/17/20 11/17/20 09:41 09:51 10:00 Temperature Pulse Rate 65 69 82 Pulse Rate [ Anterior Bilateral Throughout] Pulse Rate [ From Monitor] Respiratory 14 17 18 Rate Respiratory Rate [Anterior Bilateral Throughout] Blood Pressure 130/79 130/79 151/82 O2 Sat by Pulse 97 97 98 Oximetry 11/17/20 11/17/20 11/17/20 10:11 10:21 10:31 Temperature Pulse Rate 69 67 63 Pulse Rate [ Anterior Bilateral Throughout] Pulse Rate [ From Monitor] Respiratory 17 14 14 Rate Respiratory Rate [Anterior Bilateral Throughout] Blood Pressure 151/82 151/82 151/82 O2 Sat by Pulse 97 98 98 Oximetry 11/17/20 11/17/20 11/17/20 10:41 10:51 11:00 Temperature Pulse Rate 63 67 64 Pulse Rate [ Anterior Bilateral Throughout] Pulse Rate [ From Monitor] Respiratory 13 11 L 14 Rate Respiratory Rate [Anterior Bilateral Throughout] Blood Pressure 151/82 151/82 155/92 O2 Sat by Pulse 98 99 98 Oximetry 11/17/20 11:54 Temperature 98.2 F Pulse Rate Pulse Rate [ Anterior Bilateral Throughout] Pulse Rate [ From Monitor] Respiratory Rate Respiratory Rate [Anterior Bilateral Throughout] Blood Pressure O2 Sat by Pulse Oximetry Constitutional: comatose Ascultation: Bilateral: clear Gastrointestinal: hypoactive bowel sounds Neurologic: non-focal exam, unable to assess CBC and BMP: 11/17/20 04:30 11/17/20 04:30 ABG, PT/INR, D-dimer: ABG ABG pH 7.495 (7.320-7.450) H 11/17/20 03:51 POC ABG pCO2 43.1 mmHg (32.0-48.0) 11/17/20 03:51 ABG pCO2 33.9 mm Hg 11/11/20 10:45 POC ABG pO2 93.3 mmHg (83-108) 11/17/20 03:51 ABG pO2 222.2 mm Hg (80.0-90.0) H 11/11/20 10:45 POC ABG HCO3 32.5 11/17/20 03:51 ABG O2 Saturation 96.8 (0-100) 11/17/20 03:51 PT/INR, D-dimer PT 11.5 Sec. (12.2-14.9) L 11/11/20 09:02 INR 0.86 (0.87-1.13) L 11/11/20 09:02 Abnormal lab findings: Abnormal Labs 11/11/20 11/11/20 11/11/20 09:02 09:02 09:02 RBC 5.16 H Hgb Hct RDW 16.1 H Lymph % (Auto) 12.2 L [place] % (Auto) Lymph # (Auto) 1.1 L [place] # (Auto) Seg Neutrophils % 80.5 H PT 11.5 L INR 0.86 L ABG pH POC ABG pCO2 POC ABG pO2 ABG pO2 ABG O2 Saturation ABG Hemoglobin ABG Sodium ABG Glucose Sodium Carbon Dioxide BUN Creatinine Glucose POC Glucose Calcium AST ALT CK-MB (CK-2) 6.6 H Total Protein Albumin Arterial Blood Glucose Ur Specific [place] Phenobarbital 11/11/20 11/11/20 11/11/20 09:02 10:45 20:27 RBC Hgb Hct RDW Lymph % (Auto) [place] % (Auto) Lymph # (Auto) [place] # (Auto) Seg Neutrophils % PT INR ABG pH 7.483 H POC ABG pCO2 POC ABG pO2 ABG pO2 222.2 H ABG O2 Saturation 99.3 H ABG Hemoglobin 13.7 L ABG Sodium ABG Glucose Sodium Carbon Dioxide 20 L BUN Creatinine Glucose 55 L POC Glucose Calcium AST ALT CK-MB (CK-2) Total Protein Albumin Arterial Blood Glucose Ur Specific [place] 1.045 H Phenobarbital 11/11/20 11/11/20 11/11/20 20:34 22:06 23:43 RBC Hgb Hct RDW Lymph % (Auto) [place] % (Auto) Lymph # (Auto) [place] # (Auto) Seg Neutrophils % PT INR ABG pH POC ABG pCO2 POC ABG pO2 ABG pO2 ABG O2 Saturation ABG Hemoglobin ABG Sodium ABG Glucose Sodium Carbon Dioxide BUN Creatinine Glucose 30 L* POC Glucose 161 H 32 L Calcium AST ALT CK-MB (CK-2) Total Protein Albumin Arterial Blood Glucose Ur Specific [place] Phenobarbital 11/12/20 11/12/20 11/12/20 03:51 08:14 08:14 RBC Hgb Hct RDW 15.9 H Lymph % (Auto) [place] % (Auto) Lymph # (Auto) [place] # (Auto) Seg Neutrophils % PT INR ABG pH 7.485 H POC ABG pCO2 31.2 L POC ABG pO2 ABG pO2 ABG O2 Saturation ABG Hemoglobin ABG Sodium 134.1 L ABG Glucose Sodium Carbon Dioxide BUN Creatinine Glucose POC Glucose Calcium AST 45 H ALT CK-MB (CK-2) Total Protein Albumin 3.6 L Arterial Blood Glucose Ur Specific [place] Phenobarbital 11/12/20 11/12/20 11/12/20 08:47 09:45 12:21 RBC Hgb Hct RDW Lymph % (Auto) [place] % (Auto) Lymph # (Auto) [place] # (Auto) Seg Neutrophils % PT INR ABG pH POC ABG pCO2 POC ABG pO2 ABG pO2 ABG O2 Saturation ABG Hemoglobin ABG Sodium ABG Glucose Sodium Carbon Dioxide BUN Creatinine Glucose POC Glucose 115 H 160 H Calcium AST ALT CK-MB (CK-2) Total Protein Albumin Arterial Blood Glucose Ur Specific [place] Phenobarbital 4.3 L 11/12/20 11/12/20 11/13/20 17:42 22:07 03:56 RBC Hgb Hct RDW Lymph % (Auto) [place] % (Auto) Lymph # (Auto) [place] # (Auto) Seg Neutrophils % PT INR ABG pH POC ABG pCO2 POC ABG pO2 124.2 H ABG pO2 ABG O2 Saturation ABG Hemoglobin ABG Sodium 134.0 L ABG Glucose 131 H Sodium Carbon Dioxide BUN Creatinine Glucose POC Glucose 187 H 152 H Calcium AST ALT CK-MB (CK-2) Total Protein Albumin Arterial Blood Glucose 131 H Ur Specific [place] Phenobarbital 11/13/20 11/13/20 11/13/20 04:38 14:24 17:45 RBC Hgb Hct RDW Lymph % (Auto) [place] % (Auto) Lymph # (Auto) [place] # (Auto) Seg Neutrophils % PT INR ABG pH POC ABG pCO2 POC ABG pO2 ABG pO2 ABG O2 Saturation ABG Hemoglobin ABG Sodium ABG Glucose Sodium 136 L Carbon Dioxide BUN 25 H Creatinine Glucose 123 H POC Glucose 108 H 114 H Calcium AST ALT CK-MB (CK-2) Total Protein Albumin Arterial Blood Glucose Ur Specific [place] Phenobarbital 11/13/20 11/14/20 11/14/20 21:14 03:29 06:40 RBC Hgb 11.7 L Hct 35.3 L D RDW 15.8 H Lymph % (Auto) [place] % (Auto) 9.8 H Lymph # (Auto) [place] # (Auto) 1.0 H Seg Neutrophils % PT INR ABG pH POC ABG pCO2 POC ABG pO2 124.2 H ABG pO2 ABG O2 Saturation ABG Hemoglobin 11.9 L ABG Sodium 134.0 L ABG Glucose 108 H Sodium Carbon Dioxide BUN Creatinine Glucose POC Glucose 108 H Calcium AST ALT CK-MB (CK-2) Total Protein Albumin Arterial Blood Glucose 108 H Ur Specific [place] Phenobarbital 11/14/20 11/14/20 11/14/20 06:40 18:04 18:45 RBC Hgb Hct RDW Lymph % (Auto) [place] % (Auto) Lymph # (Auto) [place] # (Auto) Seg Neutrophils % PT INR ABG pH POC ABG pCO2 POC ABG pO2 ABG pO2 ABG O2 Saturation ABG Hemoglobin ABG Sodium ABG Glucose Sodium 134 L Carbon Dioxide BUN Creatinine 0.7 L Glucose 107 H POC Glucose 119 H 116 H Calcium 8.0 L AST 96 H ALT 78 H CK-MB (CK-2) Total Protein 6.0 L Albumin 2.6 L Arterial Blood Glucose Ur Specific [place] Phenobarbital 11/14/20 11/15/20 11/15/20 21:05 04:07 05:21 RBC Hgb 11.6 L Hct 35.1 L RDW 15.7 H Lymph % (Auto) [place] % (Auto) 12.7 H Lymph # (Auto) [place] # (Auto) 1.3 H Seg Neutrophils % PT INR ABG pH 7.461 H POC ABG pCO2 POC ABG pO2 ABG pO2 ABG O2 Saturation ABG Hemoglobin ABG Sodium 132.6 L ABG Glucose 114 H Sodium Carbon Dioxide BUN Creatinine Glucose POC Glucose 109 H Calcium AST ALT CK-MB (CK-2) Total Protein Albumin Arterial Blood Glucose 114 H Ur Specific [place] Phenobarbital 11/15/20 11/15/20 11/16/20 05:21 21:31 04:00 RBC Hgb Hct RDW Lymph % (Auto) [place] % (Auto) Lymph # (Auto) [place] # (Auto) Seg Neutrophils % PT INR ABG pH 7.485 H POC ABG pCO2 POC ABG pO2 108.7 H ABG pO2 ABG O2 Saturation ABG Hemoglobin 11.6 L ABG Sodium 132.6 L ABG Glucose 111 H Sodium 134 L Carbon Dioxide BUN Creatinine 0.7 L Glucose 106 H POC Glucose 109 H Calcium AST 54 H ALT 58 H CK-MB (CK-2) Total Protein Albumin 2.8 L Arterial Blood Glucose 111 H Ur Specific [place] Phenobarbital 11/16/20 11/16/20 11/16/20 04:25 04:25 11:34 RBC Hgb Hct RDW 16.1 H Lymph % (Auto) [place] % (Auto) 11.8 H Lymph # (Auto) [place] # (Auto) 1.0 H Seg Neutrophils % PT INR ABG pH POC ABG pCO2 POC ABG pO2 ABG pO2 ABG O2 Saturation ABG Hemoglobin ABG Sodium ABG Glucose Sodium 136 L Carbon Dioxide 31 H BUN Creatinine 0.6 L Glucose 111 H POC Glucose 108 H Calcium AST 45 H ALT CK-MB (CK-2) Total Protein Albumin 2.7 L Arterial Blood Glucose Ur Specific [place] Phenobarbital 11/16/20 11/16/20 11/17/20 16:06 23:27 02:20 RBC Hgb Hct RDW Lymph % (Auto) [place] % (Auto) Lymph # (Auto) [place] # (Auto) Seg Neutrophils % PT INR ABG pH POC ABG pCO2 POC ABG pO2 ABG pO2 ABG O2 Saturation ABG Hemoglobin ABG Sodium ABG Glucose Sodium Carbon Dioxide BUN Creatinine Glucose POC Glucose 110 H 112 H 110 H Calcium AST ALT CK-MB (CK-2) Total Protein Albumin Arterial Blood Glucose Ur Specific [place] Phenobarbital 11/17/20 11/17/20 11/17/20 03:51 04:30 04:30 RBC Hgb 10.6 L Hct 31.3 L RDW 15.8 H Lymph % (Auto) [place] % (Auto) 12.9 H Lymph # (Auto) [place] # (Auto) 1.0 H Seg Neutrophils % PT INR ABG pH 7.495 H POC ABG pCO2 POC ABG pO2 ABG pO2 ABG O2 Saturation ABG Hemoglobin 11.0 L ABG Sodium 135.5 L ABG Glucose 110 H Sodium 135 L Carbon Dioxide 31 H BUN Creatinine 0.6 L Glucose 110 H POC Glucose Calcium AST ALT CK-MB (CK-2) Total Protein 5.7 L Albumin 2.5 L Arterial Blood Glucose 110 H Ur Specific [place] Phenobarbital
--- NOTE | 2020-11-17 13:10 | Progress Note ---
Assessment and Plan Assessment and plan: #SIRS -Etiology unknown -UA, CXR, COVID-19 PCR negative #Acute hypoxic respiratory failure -Now on mechanical ventilation, wean as tolerated -VAP -Pulmonary hygiene -Patient was extubated on 11/17 #Seizure disorder -Patient reportedly had status epilepticus on presentation to the ED -Continued on Keppra (dose adjusted) and phenobarbital -CT head negative -Neurology following, appreciate recommendations -EEG shows significant encephalopathy, does not rule out epilepsy. #Transaminitis -Trend LFTs #Hypoglycemia, Resolved -Enteral feeds -Accu-Cheks #Tobacco abuse Needs tobacco abuse counseling when extubated #DVT prophylaxis -SCDs, Lovenox #GI prophylaxis -PPI Critical care statement The high probability of a clinically significant, sudden or life threatening deterioration of the [neuro,respiratory] system(s) required my full and direct attention, intervention and personal management. The aggregate critical care time was [35] minutes. This time is in addition to time spent performing re ported procedures but includes the following: [x] Data Review and interpretation [x] Patient assessment and monitoring of vital signs [x] Documentation [x] Medication orders and management History Interval history: This is a 60-year-old male with seizure disorder current alcohol and tobacco abuse presents to the hospital on 11/11 after being found unresponsive. On arrival of EMS patient was found to be hypoglycemic and given IV dextrose after which he recovered and refused further care. EMS was called again by family after the patient was found unresponsive and was given Narcan with no change. Patient was noted to have seizure activity and given 7 mg IV Ativan total including 3 from EMS. Patient was loaded with Keppra 2 g and was intubated for airway protection. Patient was found to have metabolic acidosis and hypoglycemia on BMP. Patient was found to be hypothermic and hypertensive in the emergency department. Patient's UDS was positive for barbiturates. Patient was admitted to the hospital service for further work-up with consults to [facility] and neurology. SIRS Acute hypoxic respiratory failure s/p Status epilepticus Acute encephalopathy Seizure disorder Lactic acidosis Hypoglycemia EtOH and tobacco abuse Transaminitis Hyponatremia 11/12. Patient remains intubated. On Keppra and phenobarbital. Neurology evaluation appreciated. EEG ordered. May need transfer to tertiary care for continuous EEG pending EEG results. 11/13. Remains intubated and on antiseizure medications. EEG has been performed but results are pending. Neurology on board 11/14. Remains intubated and on antiseizure medications. EEG has been performed but results are pending. Neurology on board 11/15: EEG is consistent with significant encephalopathy and does not rule out the possibility of epilepsy, patient remains on mechanical ventilation with minimal vent settings. No acute events reported overnight. 11/16: No acute events reported overnight, patient opens eyes spontaneously and withdraws to pain bilateral lower extremities. At the time my examination patient was on CMV 450/18/64/0.30 and has been started on a CPAP trial subsequen tly. No evidence of generalized seizures noted. Patient is a lui of the state 11/17: Patient was extubated today per [facility], no acute events reported overnight. Patient has a right sided gaze during my examination and was on CPAP 06/08 at 30% and he opens his eyes spontaneously. He does withdraw bilateral lower extremities to pain. His Keppra was decreased yesterday. ST evaluation pending Hospitalist Physical - Constitutional Vitals: Temp Pulse Resp BP Pulse Ox 98.2 F 64 14 155/92 94 11/17/20 11:54 11/17/20 11:00 11/17/20 11:00 11/17/20 11:00 11/17/20 12:16 General appearance: Present: no acute distress, other (unresponsive) - EENT Eyes: Present: PERRL ENT: poor dentition - Neck Neck: Present: normal ROM - Respiratory Respiratory effort: normal Respiratory: bilateral: CTA, diminished - Cardiovascular Rhythm: regular Heart Sounds: Present: S1 & S2. Absent: systolic murmur, diastolic murmur - Extremities Extremities: no ischemia, pulses intact, pulses symmetrical, No edema, normal temperature, normal color, Full ROM Peripheral Pulses: within normal limits - Abdominal General gastrointestinal: soft, non-tender, non-distended, normal bowel sounds - Integumentary Integumentary: Present: warm, dry - Psychiatric Psychiatric: other (Intubated) - Neurologic Neurologic: other (Withdraws to painful stimuli to bilateral lower extremities, right-sided gaze, opens eyes spontaneously) HEART Score - HEART Score Troponin: Troponin T < 0.010 ng/mL (0.00-0.029) 11/11/20 09:02 Results - Labs CBC & Chem 7: 11/17/20 04:30 11/17/20 04:30 Labs: Laboratory Last Values WBC 7.6 K/mm3 (4.5-11.0) 11/17/20 04:30 RBC 3.68 M/mm3 (3.65-5.03) 11/17/20 04:30 Hgb 10.6 gm/dl (11.8-15.2) L 11/17/20 04:30 Hct 31.3 % (35.5-45.6) L 11/17/20 04:30 MCV 85 fl (84-94) 11/17/20 04:30 MCH 29 pg (28-32) 11/17/20 04:30 MCHC 34 % (32-34) 11/17/20 04:30 RDW 15.8 % (13.2-15.2) H 11/17/20 04:30 Plt Count 215 K/mm3 (140-440) 11/17/20 04:30 Lymph % (Auto) 20.5 % (13.4-35.0) 11/17/20 04:30 [place] % (Auto) 12.9 % (0.0-7.3) H 11/17/20 04:30 Eos % (Auto) 2.9 % (0.0-4.3) 11/17/20 04:30 Baso % (Auto) 0.9 % (0.0-1.8) 11/17/20 04:30 Lymph # (Auto) 1.6 K/mm3 (1.2-5.4) 11/17/20 04:30 [place] # (Auto) 1.0 K/mm3 (0.0-0.8) H 11/17/20 04:30 Eos # (Auto) 0.2 K/mm3 (0.0-0.4) 11/17/20 04:30 Baso # (Auto) 0.1 K/mm3 (0.0-0.1) 11/17/20 04:30 Seg Neutrophils % 62.8 % (40.0-70.0) 11/17/20 04:30 Seg Neutrophils # 4.8 K/mm3 (1.8-7.7) 11/17/20 04:30 PT 11.5 Sec. (12.2-14.9) L 11/11/20 09:02 INR 0.86 (0.87-1.13) L 11/11/20 09:02 APTT 25.5 Sec. (24.2-36.6) 11/11/20 09:02 Thrombin Time 17.0 Sec. (15.1-19.6) 11/11/20 09:02 ABG pH 7.495 (7.320-7.450) H 11/17/20 03:51 POC ABG pCO2 43.1 mmHg (32.0-48.0) 11/17/20 03:51 ABG pCO2 33.9 mm Hg 11/11/20 10:45 POC ABG pO2 93.3 mmHg (83-108) 11/17/20 03:51 ABG pO2 222.2 mm Hg (80.0-90.0) H 11/11/20 10:45 POC ABG HCO3 32.5 11/17/20 03:51 ABG HCO3 24.9 mmol/L (20.0-26.0) 11/11/20 10:45 ABG O2 Saturation 96.8 (0-100) 11/17/20 03:51 ABG O2 Content 19.4 (0.0-44) 11/11/20 10:45 POC ABG Base Excess 8.4 11/17/20 03:51 ABG Base Excess 1.9 mmol/L (-2.0-3.0) 11/11/20 10:45 ABG Hemoglobin 11.0 (12.0-17.5) L 11/17/20 03:51 ABG Oxyhemoglobin 95.8 (94-98) 11/17/20 03:51 ABG Carboxyhemoglobin 0.6 % (0.0-5.0) 11/11/20 10:45 ABG Methemoglobin 0.3 (0.0-1.5) 11/17/20 03:51 ABG Sodium 135.5 mmol/L (136.0-145.0) L 11/17/20 03:51 ABG Potassium 3.7 mmol/L (3.40-4.50) 11/17/20 03:51 ABG Chloride 101.0 mmol/L (98-107) 11/17/20 03:51 ABG Glucose 110 mg/dL (65-95) H 11/17/20 03:51 Oxyhemoglobin 98.5 % (95.0-99.0) 11/11/20 10:45 Carboxyhemoglobin 0.7 (0.5-1.5) 11/17/20 03:51 FiO2 21 % 11/11/20 10:45 FiO2 % 30 11/17/20 03:51 Sodium 135 mmol/L (137-145) L 11/17/20 04:30 Potassium 3.8 mmol/L (3.6-5.0) 11/17/20 04:30 Chloride 99.5 mmol/L (98-107) 11/17/20 04:30 Carbon Dioxide 31 mmol/L (22-30) H 11/17/20 04:30 Anion Gap 8 mmol/L 11/17/20 04:30 BUN 17 mg/dL (9-20) 11/17/20 04:30 Creatinine 0.6 mg/dL (0.8-1.3) L 11/17/20 04:30 Estimated GFR > 60 ml/min 11/17/20 04:30 BUN/Creatinine Ratio 28 % 11/17/20 04:30 Glucose 110 mg/dL (75-100) H 11/17/20 04:30 POC Glucose 101 mg/dL (70-105) 11/17/20 11:33 Hemoglobin A1c 5.4 % (4-6) 11/12/20 07:26 Calcium 8.7 mg/dL (8.4-10.2) 11/17/20 04:30 Magnesium 2.00 mg/dL (1.7-2.3) 11/11/20 09:02 Total Bilirubin 0.20 mg/dL (0.1-1.2) 11/17/20 04:30 AST 35 units/L (5-40) 11/17/20 04:30 ALT 35 units/L (7-56) 11/17/20 04:30 Alkaline Phosphatase 90 units/L (35-129) 11/17/20 04:30 Ammonia 29.0 umol/L (25-60) 11/12/20 08:47 Total Creatine Kinase 169 units/L (55-170) 11/11/20 09:02 CK-MB (CK-2) 6.6 ng/mL (0.0-4.0) H 11/11/20 09:02 CK-MB (CK-2) Rel Index 3.9 (0-4) 11/11/20 09:02 Troponin T < 0.010 ng/mL (0.00-0.029) 11/11/20 09:02 Total Protein 5.7 g/dL (6.3-8.2) L 11/17/20 04:30 Albumin 2.5 g/dL (3.9-5) L 11/17/20 04:30 Albumin/Globulin Ratio 0.8 % 11/17/20 04:30 Arterial Blood Glucose 110 mg/dL (65-95) H 11/17/20 03:51 Arterial Blood Ionized Calcium 4.8 mg/dL (4.6-5.3) 11/17/20 03:51 Urine Color Yellow (Yellow) 11/11/20 20: Urine Turbidity Clear (Clear) 11/11/20 20: Urine pH 6.0 (5.0-7.0) 11/11/20 20: Ur Specific [place] 1.045 (1.003-1.030) H 11/11/20 20:27 Urine Protein 100 mg/dl mg/dL (Negative) 11/11/20 20: Urine Glucose (UA) Neg mg/dL (Negative) 11/11/20 20: Urine Ketones Neg mg/dL (Negative) 11/11/20 20: Urine Blood Sm (Negative) 11/11/20 20: Urine Nitrite Neg (Negative) 11/11/20 20: Urine Bilirubin Neg (Negative) 11/11/20 20: Urine Urobilinogen 4.0 mg/dL (<2.0) 11/11/20 20:27 Ur Leukocyte Esterase Neg (Negative) 11/11/20 20: Urine WBC (Auto) 1.0 /HPF (0.0-6.0) 11/11/20 20: Urine RBC (Auto) 4.0 /HPF (0.0-6.0) 11/11/20 20: U Epithel Cells (Auto) 12.0 /HPF (0-13.0) 11/11/20 20: Urine Bacteria (Auto) 1+ /HPF (Negative) 11/11/20 20: Urine Mucus Few /HPF 11/11/20 20: Urine Opiates Screen Negative 11/11/20 20:27 Urine Methadone Screen Negative 11/11/20 20:27 Ur Barbiturates Screen Positive 11/11/20 20:27 Ur Phencyclidine Scrn Negative 11/11/20 20:27 Ur Amphetamines Screen Negative 11/11/20 20:27 Phenobarbital 4.3 ug/mL (15.0-40.0) L 11/12/20 08:47 U Benzodiazepines Scrn Negative 11/11/20 20:27 Urine Cocaine Screen Negative 11/11/20 20:27 U Marijuana (THC) Screen Negative 11/11/20 20:27 Drugs of Abuse Note Disclamer 11/11/20 20:27 Plasma/Serum Alcohol < 0.01 % (0-0.07) 11/11/20 09:02 Coronavirus (PCR) Negative (Negative) 11/12/20 08:00 [place]/IV: Voiding Method Indwelling Catheter Active Medications - Current Medications Current Medications: Generic Name Dose Route Start Last Admin Trade Name Freq PRN Reason Stop Dose Admin Acetaminophen 650 mg 11/11/20 22:58 Acetaminophen 325 Mg Tab PO Q4H PRN Pain MILD(1-3)/Fever >100.5/BAR Albuterol 2.5 mg 11/11/20 23:18 Albuterol 2.5 Mg/3 Ml Nebu IH Q3HRT PRN Wheezing Albuterol/Ipratropium 1 ampul 11/16/20 20:00 11/17/20 07:19 Ipratropium/Albuterol Sulfate 3 Ml Ampul.Neb IH 1 ampul TIDRT KIRK Administration Lipase/Protease/Amylase 1 each 11/12/20 12:00 Lipase 10,500/Protease 25,000/Amylase 43,750 (Units) Dr Rangel FEEDTUBE PRN PRN For Clogged Feeding Tube Dextrose 50 ml 11/11/20 22:11 11/12/20 00:48 Dextrose 50% In Water (25gm) 50 Ml Syringe IV 25 ml ONCE PRN Administration Hypoglycemia Protocol Enoxaparin Sodium 40 mg 11/12/20 22:00 11/16/20 22:54 Enoxaparin 40 Mg/0.4 Ml Inj SUB-Q 40 mg QDAY@2200 KIRK Administration Protocol Famotidine 20 mg 11/15/20 10:00 11/17/20 11:21 Famotidine 20 Mg Tab PO 20 mg BID KIRK Administration Folic Acid 1 mg 11/16/20 10:00 11/17/20 11:21 Folic Acid 1 Mg Tab PO 1 mg DAILY KIRK Administration Hydralazine HCl 10 mg 11/12/20 10:30 11/14/20 07:30 Hydralazine 20 Mg/1 Ml Inj IV 10 mg Q4H PRN Administration Hypertension Hydrophilic Ointment 1 applic 11/11/20 09:14 Lip Therapy Vaseline TP Q2HR PRN Dry Lips Insulin Human Regular 0 units 11/12/20 18:00 11/17/20 07:52 Insulin Regular, Human 100 Units/1 Ml SUB-Q Not Given Q6H [facility] Protocol Levetiracetam 1,000 mg 11/16/20 22:00 11/17/20 11:22 Levetiracetam 500 Mg/5 Ml Oral Liqd PO 1,000 mg BID KIRK Administration Metoclopramide HCl 10 mg 11/11/20 22:58 Metoclopramide 10 Mg/2 Ml Inj IV Q6H PRN Nausea And Vomiting Multi-Ingred Cream/Lotion/Oil/Oint 1 applic 11/11/20 09:14 Mineral Oil/Petrolatum, White Ophth Oint 3.5 Gm OU Q4HR PRN Dry Eye(s) Multivitamins 1 each 11/13/20 00:00 11/17/20 01:00 Multivitamins ,Therapeutic Tab PO 1 each Q24H KIRK Administration Naloxone HCl 2 mg 11/11/20 08:33 Naloxone 0.4 Mg/1 Ml Inj IV Q2MIN PRN Res Rate </= 8 or 02 SAT < 92% Ondansetron HCl 4 mg 11/11/20 22:58 Ondansetron 4 Mg/2 Ml Inj IV Q3H PRN Nausea And Vomiting Phenobarbital 15 mg 11/11/20 23:45 11/17/20 11:21 Phenobarbital 15 Mg Tab PO 15 mg BID KIRK Administration Simple Syrup 15 ml 11/12/20 12:00 Simple Syrup 15 Ml FEEDTUBE PRN PRN Hypoglycemia Simple Syrup 30 ml 11/12/20 12:00 Simple Syrup 15 Ml FEEDTUBE PRN PRN Hypoglycemia Sodium Bicarbonate 325 mg 11/12/20 12:00 Sodium Bicarbonate 325 Mg Tab FEEDTUBE PRN PRN For Clogged Feeding Tube Sodium Chloride 10 ml 11/11/20 23:00 11/17/20 11:22 Sodium Chloride 0.9% 10 Ml Flush Syringe IV 10 ml BID KIRK Administration Sodium Chloride 10 ml 11/11/20 22:58 Sodium Chloride 0.9% 10 Ml Flush Syringe IV PRN PRN LINE FLUSH Thiamine HCl 100 mg 11/16/20 10:00 11/17/20 11:21 Thiamine 100 Mg Tab PO 100 mg QDAY KIRK Administration Nutrition/Malnutrition Assess - Dietary Evaluation Nutrition/Malnutrition Findings: Nutrition Notes Start: 11/12/20 08:26 Freq: Status: Active Protocol: Document 11/15/20 09:06 CW (Rec: 11/15/20 09:19 CW [id number]) Nutrition Notes Initial or Follow up Reassessment Current Diagnosis Respiratory Failure,Stroke Other Pertinent Diagnosis Seizures Current Diet Vital AF 1.2 at 60 ml/h Labs/Tests Na 134 Pertinent Medications Thiamine/Folic Acid in NS at 125ml/h Height 5 ft 9 in Weight 70 kg [place] Body Weight (kg) 72.72 BMI 22.8 Weight Status Appropriate Subjective/Other Information F/U TF initiation and tolerance. Pt tolerating TF and TF is at goal of 60 ml/hr. Percent of energy/protein needs met: 98%96% (protein based on average need of 112g) Burn Absent Trauma Absent GI Symptoms None Current % PO Negligible Minimum of two criteria No physical signs of malnutrition #1 Nutrition Diagnosis Inadequate oral intake Diagnosis Progress(for reassessment Continues documentation) Is patient on ventilator? Yes Is Patient Ambulatory and/or Out of Bed No REE-([facility]-confined to bed) [phone] Additional Notes Protein: 84-140 g (1.2-2.0 g/ kgBW) Fluid 1 ml/kcal Nutrition Intervention Change Diet Order: Continue Vital AF at 60 ml/h Nutrition Support: Vital AF 1.2 at 60 ml/hr Flush 100 ml q4h Kcal 1,728 Protein (gm) 108 Fluid (mL) 1,167 Goal #1 Meet 75% of estimated energy and protein needs via TF Anticipated Discharge Needs: Unable to determine at the time Follow-Up By: 11/18/20 Additional Comments F/U for TF tolerance
[2020-11-17] MEDS ORDERED: DEXTROSE 5% IN WATER 1,000 ML IV SCH (19:00)
[2020-11-17] MEDS: DEXTROSE 50% IN WATER (25GM) 50 ML SYRINGE IV PRN ×2 (20:44→23:29)
[2020-11-17] MEDS: ENOXAPARIN 40 MG/0.4 ML INJ SUB-Q SCH (21:07)
[2020-11-18] MEDS: INSULIN REGULAR, HUMAN 100 UNITS/1 ML SUB-Q SCH ×4 (03:41→18:06)
[2020-11-18] MEDS: MULTIVITAMINS ,THERAPEUTIC TAB PO SCH (03:41)
[2020-11-18 06:14] LABS: Basophils # (Auto) 0.1 K/mm3 (0.0-0.1); Eosinophils # (Auto) 0.3 K/mm3 (0.0-0.4); Eosinophils % (Auto) 2.5 % (0.0-4.3); Hematocrit 35.1 % (35.5-45.6); Hemoglobin 11.6 gm/dl (11.8-15.2); Lymphocytes # (Auto) 2.1 K/mm3 (1.2-5.4); Lymphocytes % (Auto) 20.4 % (13.4-35.0); Mean Corpuscular HGB Conc 33 % (32-34); Mean Corpuscular Volume 86 fl (84-94); Monocytes # (Auto) 1.1 K/mm3 (0.0-0.8); Monocytes % (Auto) 10.4 % (0.0-7.3); Red Blood Count 4.06 M/mm3 (3.65-5.03); Red Cell Distribution Width 16.1 % (13.2-15.2)
[2020-11-18 06:15] LABS: Platelet Count 228 K/mm3 (140-440)
[2020-11-18 06:31] LABS: Alanine Aminotransferase 32 units/L (7-56); Albumin 2.5 g/dL (3.9-5); Blood Urea Nitrogen 13 mg/dL (9-20); Calcium 8.8 mg/dL (8.4-10.2); Hemolysis Index 59
[2020-11-18 06:32] LABS: BUN/Creatinine Ratio 26
[2020-11-18] MEDS: THIAMINE 100 MG TAB PO SCH (09:26)
[2020-11-18] MEDS: FAMOTIDINE 20 MG TAB PO SCH ×2 (09:26→22:08)
[2020-11-18] MEDS: levETIRAcetam 500 MG/5 ML ORAL LIQD PO SCH (09:26)
[2020-11-18] MEDS: PHENobarbital 15 MG TAB PO SCH ×2 (09:26→22:08)
[2020-11-18] MEDS: DEXTROSE 5% IN WATER 1,000 ML IV SCH (09:45)
[2020-11-18] MEDS: IPRATROPIUM/ALBUTEROL SULFATE 3 ML AMPUL.NEB IH SCH (10:35)
--- NOTE | 2020-11-18 11:32 | Progress Note ---
Assessment and Plan 70 y/o male with acute respiratory failure secondary to seizure activity. 11/18/20: Will transfer to [facility] today. Asked nursing to place Dobbhoff tube for feeds. Jordan visited patient on yesterday. Will sign off once out of unit. 11/17/20: Will attempt extubation today. [facility] This was found out on yesterday. Once contact is available. Will update them. Remainder is negative. Monitor in ICU post extubation for at least 12-24 hours. 11/16/20: Will decrease Keppra to 1000 BID. Obtain MRI as neurology will likely want this. Continue to monitor Mental state and PSV trials as tolerated. Overall prognosis is guarded to poor. Will speak with family as decisions will need to be made in regards to [facility] care. No sedatives whatsoever. 11/14/20: Follow up EEG read. No sedation. Follow up Neurology recs. 1. Follow up EEG read 2. No sedation 3. PSV as tolerated 4. Guarded prognosis. CCT 31 minutes. Subjective Date of service: 11/18/20 Interval history: No acute events. Successful extubation on yesterday. Stable. Still not following commands. Objective Vital Signs - 12hr 11/17/20 11/17/20 11/17/20 23:31 23:41 23:51 Temperature Pulse Rate 62 63 59 L Pulse Rate [ From Monitor] Respiratory 19 18 16 Rate Blood Pressure 123/66 114/62 114/62 O2 Sat by Pulse 97 98 98 Oximetry 11/17/20 11/18/20 11/18/20 23:54 00:00 00:10 Temperature 98.6 F Pulse Rate 60 62 71 Pulse Rate [ 62 From Monitor] Respiratory 18 18 19 Rate Blood Pressure 114/62 114/62 124/69 O2 Sat by Pulse 98 98 96 Oximetry 11/18/20 11/18/20 11/18/20 00:20 00:31 00:41 Temperature Pulse Rate 65 67 63 Pulse Rate [ From Monitor] Respiratory 19 20 17 Rate Blood Pressure 124/69 124/69 124/69 O2 Sat by Pulse 96 99 99 Oximetry 11/18/20 11/18/20 11/18/20 00:51 01:00 01:11 Temperature Pulse Rate 61 59 L 57 L Pulse Rate [ From Monitor] Respiratory 17 16 15 Rate Blood Pressure 124/69 125/67 125/67 O2 Sat by Pulse 99 99 100 Oximetry 11/18/20 11/18/20 11/18/20 01:21 01:31 01:41 Temperature Pulse Rate 58 L 62 63 Pulse Rate [ From Monitor] Respiratory 14 18 21 Rate Blood Pressure 125/67 125/67 125/67 O2 Sat by Pulse 100 99 98 Oximetry 11/18/20 11/18/20 11/18/20 01:51 02:00 02:11 Temperature Pulse Rate 62 61 61 Pulse Rate [ From Monitor] Respiratory 19 17 17 Rate Blood Pressure 125/67 113/63 113/63 O2 Sat by Pulse 99 99 99 Oximetry 11/18/20 11/18/20 11/18/20 02:21 02:31 02:41 Temperature Pulse Rate 61 61 67 Pulse Rate [ From Monitor] Respiratory 18 17 22 Rate Blood Pressure 113/63 113/63 113/63 O2 Sat by Pulse 99 100 96 Oximetry 11/18/20 11/18/20 11/18/20 02:51 03:00 03:11 Temperature Pulse Rate 70 69 66 Pulse Rate [ From Monitor] Respiratory 22 22 19 Rate Blood Pressure 113/63 126/69 126/69 O2 Sat by Pulse 98 93 92 Oximetry 11/18/20 11/18/20 11/18/20 03:21 03:31 03:41 Temperature Pulse Rate 67 66 64 Pulse Rate [ From Monitor] Respiratory 20 21 19 Rate Blood Pressure 126/69 126/69 126/69 O2 Sat by Pulse 93 93 92 Oximetry 11/18/20 11/18/20 11/18/20 03:51 04:00 04:11 Temperature 98.2 F Pulse Rate 62 61 66 Pulse Rate [ From Monitor] Respiratory 16 16 21 Rate Blood Pressure 126/69 123/68 123/68 O2 Sat by Pulse 92 95 95 Oximetry 11/18/20 11/18/20 11/18/20 04:21 04:31 04:41 Temperature Pulse Rate 62 66 66 Pulse Rate [ From Monitor] Respiratory 19 20 20 Rate Blood Pressure 123/68 123/68 123/68 O2 Sat by Pulse 95 94 93 Oximetry 11/18/20 11/18/20 11/18/20 04:51 05:00 05:11 Temperature Pulse Rate 68 69 71 Pulse Rate [ From Monitor] Respiratory 18 22 22 Rate Blood Pressure 123/68 129/76 129/76 O2 Sat by Pulse 92 92 91 Oximetry 03/18/21 03/18/21 03/18/21 05:21 05:31 05:41 Temperature Pulse Rate 68 74 69 Pulse Rate [ From Monitor] Respiratory 23 21 25 H Rate Blood Pressure 129/76 129/76 129/76 O2 Sat by Pulse 91 91 92 Oximetry 11/18/20 11/18/20 11/18/20 05:51 06:00 06:11 Temperature Pulse Rate 71 74 66 Pulse Rate [ From Monitor] Respiratory 19 25 H 22 Rate Blood Pressure 129/76 135/72 135/72 O2 Sat by Pulse 91 90 92 Oximetry 11/18/20 11/18/20 11/18/20 06:21 06:31 06:41 Temperature Pulse Rate 64 62 60 Pulse Rate [ From Monitor] Respiratory 18 17 Rate Blood Pressure 135/72 135/72 135/72 O2 Sat by Pulse 93 95 97 Oximetry 11/18/20 11/18/20 11/18/20 06:51 07:00 07:11 Temperature Pulse Rate 66 65 64 Pulse Rate [ From Monitor] Respiratory 21 Rate Blood Pressure 135/72 140/77 140/77 O2 Sat by Pulse 96 97 96 Oximetry 11/18/20 11/18/20 11/18/20 07:13 07:21 07:31 Temperature 99.0 F Pulse Rate 67 65 Pulse Rate [ From Monitor] Respiratory 24 21 Rate Blood Pressure 140/77 140/77 O2 Sat by Pulse 95 95 Oximetry 11/18/20 11/18/20 11/18/20 07:41 07:51 08:00 Temperature Pulse Rate 69 65 64 Pulse Rate [ From Monitor] Respiratory 22 21 Rate Blood Pressure 140/77 140/77 119/64 O2 Sat by Pulse 95 94 94 Oximetry 11/18/20 11/18/20 11/18/20 08:11 08:21 08:31 Temperature Pulse Rate 62 61 62 Pulse Rate [ From Monitor] Respiratory 18 21 Rate Blood Pressure 119/64 119/64 119/64 O2 Sat by Pulse 95 98 98 Oximetry 11/18/20 11/18/20 11/18/20 08:41 08:51 09:00 Temperature Pulse Rate 60 60 59 L Pulse Rate [ From Monitor] Respiratory 20 17 17 Rate Blood Pressure 119/64 119/64 122/64 O2 Sat by Pulse 99 99 99 Oximetry 03/11/18/20 11/18/20 09:11 09:21 09:31 Temperature Pulse Rate 59 L 59 L 63 Pulse Rate [ From Monitor] Respiratory 17 17 21 Rate Blood Pressure 122/64 122/64 122/64 O2 Sat by Pulse 99 99 99 Oximetry 11/18/20 11/18/20 11/18/20 09:41 09:51 10:00 Temperature Pulse Rate 62 67 64 Pulse Rate [ From Monitor] Respiratory 21 22 22 Rate Blood Pressure 122/64 122/64 125/68 O2 Sat by Pulse 97 93 93 Oximetry 11/18/20 11/18/20 11/18/20 10:11 10:21 10:31 Temperature Pulse Rate 61 62 58 L Pulse Rate [ From Monitor] Respiratory 21 20 17 Rate Blood Pressure 125/68 125/68 O2 Sat by Pulse 93 95 99 Oximetry 11/18/20 11/18/20 11/18/20 10:41 10:51 11:00 Temperature Pulse Rate 64 63 67 Pulse Rate [ From Monitor] Respiratory 19 21 17 Rate Blood Pressure 125/68 125/68 125/68 O2 Sat by Pulse 98 93 91 Oximetry 11/18/20 11:11 Temperature Pulse Rate 69 Pulse Rate [ From Monitor] Respiratory 22 Rate Blood Pressure 125/68 O2 Sat by Pulse 90 Oximetry Constitutional: comatose Ascultation: Bilateral: clear Gastrointestinal: hypoactive bowel sounds Neurologic: non-focal exam, unable to assess CBC and BMP: 11/18/20 05:44 11/18/20 05:44 ABG, PT/INR, D-dimer: ABG ABG pH 7.499 (7.320-7.450) H 11/17/20 11:40 POC ABG pCO2 36.3 mmHg (32.0-48.0) 11/17/20 11:40 ABG pCO2 33.9 mm Hg 11/11/20 10:45 POC ABG pO2 140.8 mmHg (83-108) H 11/17/20 11:40 ABG pO2 222.2 mm Hg (80.0-90.0) H 11/11/20 10:45 POC ABG HCO3 27.6 11/17/20 11:40 ABG O2 Saturation 98.1 (0-100) 11/17/20 11:40 PT/INR, D-dimer PT 11.5 Sec. (12.2-14.9) L 11/11/20 09:02 INR 0.86 (0.87-1.13) L 11/11/20 09:02 Abnormal lab findings: Abnormal Labs 11/11/20 11/11/20 11/11/20 09:02 09:02 09:02 RBC 5.16 H Hgb Hct RDW 16.1 H Lymph % (Auto) 12.2 L [place] % (Auto) Lymph # (Auto) 1.1 L [place] # (Auto) Seg Neutrophils % 80.5 H PT 11.5 L INR 0.86 L ABG pH POC ABG pCO2 POC ABG pO2 ABG pO2 ABG O2 Saturation ABG Hemoglobin ABG Sodium ABG Glucose Carboxyhemoglobin Sodium Chloride Carbon Dioxide BUN Creatinine Glucose POC Glucose Calcium AST ALT CK-MB (CK-2) 6.6 H Total Protein Albumin Arterial Blood Glucose Ur Specific [place] Phenobarbital 11/11/20 11/11/20 11/11/20 09:02 10:45 20:27 RBC Hgb Hct RDW Lymph % (Auto) [place] % (Auto) Lymph # (Auto) [place] # (Auto) Seg Neutrophils % PT INR ABG pH 7.483 H POC ABG pCO2 POC ABG pO2 ABG pO2 222.2 H ABG O2 Saturation 99.3 H ABG Hemoglobin 13.7 L ABG Sodium ABG Glucose Carboxyhemoglobin Sodium Chloride Carbon Dioxide 20 L BUN Creatinine Glucose 55 L POC Glucose Calcium AST ALT CK-MB (CK-2) Total Protein Albumin Arterial Blood Glucose Ur Specific [place] 1.045 H Phenobarbital 11/11/20 11/11/20 11/11/20 20:34 22:06 23:43 RBC Hgb Hct RDW Lymph % (Auto) [place] % (Auto) Lymph # (Auto) [place] # (Auto) Seg Neutrophils % PT INR ABG pH POC ABG pCO2 POC ABG pO2 ABG pO2 ABG O2 Saturation ABG Hemoglobin ABG Sodium ABG Glucose Carboxyhemoglobin Sodium Chloride Carbon Dioxide BUN Creatinine Glucose 30 L* POC Glucose 161 H 32 L Calcium AST ALT CK-MB (CK-2) Total Protein Albumin Arterial Blood Glucose Ur Specific [place] Phenobarbital 11/12/20 11/12/20 11/12/20 03:51 08:14 08:14 RBC Hgb Hct RDW 15.9 H Lymph % (Auto) [place] % (Auto) Lymph # (Auto) [place] # (Auto) Seg Neutrophils % PT INR ABG pH 7.485 H POC ABG pCO2 31.2 L POC ABG pO2 ABG pO2 ABG O2 Saturation ABG Hemoglobin ABG Sodium 134.1 L ABG Glucose Carboxyhemoglobin Sodium Chloride Carbon Dioxide BUN Creatinine Glucose POC Glucose Calcium AST 45 H ALT CK-MB (CK-2) Total Protein Albumin 3.6 L Arterial Blood Glucose Ur Specific [place] Phenobarbital 11/12/20 11/12/20 11/12/20 08:47 09:45 12:21 RBC Hgb Hct RDW Lymph % (Auto) [place] % (Auto) Lymph # (Auto) [place] # (Auto) Seg Neutrophils % PT INR ABG pH POC ABG pCO2 POC ABG pO2 ABG pO2 ABG O2 Saturation ABG Hemoglobin ABG Sodium ABG Glucose Carboxyhemoglobin Sodium Chloride Carbon Dioxide BUN Creatinine Glucose POC Glucose 115 H 160 H Calcium AST ALT CK-MB (CK-2) Total Protein Albumin Arterial Blood Glucose Ur Specific [place] Phenobarbital 4.3 L 11/12/20 11/12/20 11/13/20 17:42 22:07 03:56 RBC Hgb Hct RDW Lymph % (Auto) [place] % (Auto) Lymph # (Auto) [place] # (Auto) Seg Neutrophils % PT INR ABG pH POC ABG pCO2 POC ABG pO2 124.2 H ABG pO2 ABG O2 Saturation ABG Hemoglobin ABG Sodium 134.0 L ABG Glucose 131 H Carboxyhemoglobin Sodium Chloride Carbon Dioxide BUN Creatinine Glucose POC Glucose 187 H 152 H Calcium AST ALT CK-MB (CK-2) Total Protein Albumin Arterial Blood Glucose 131 H Ur Specific [place] Phenobarbital 11/13/20 11/13/20 11/13/20 04:38 14:24 17:45 RBC Hgb Hct RDW Lymph % (Auto) [place] % (Auto) Lymph # (Auto) [place] # (Auto) Seg Neutrophils % PT INR ABG pH POC ABG pCO2 POC ABG pO2 ABG pO2 ABG O2 Saturation ABG Hemoglobin ABG Sodium ABG Glucose Carboxyhemoglobin Sodium 136 L Chloride Carbon Dioxide BUN 25 H Creatinine Glucose 123 H POC Glucose 108 H 114 H Calcium AST ALT CK-MB (CK-2) Total Protein Albumin Arterial Blood Glucose Ur Specific [place] Phenobarbital 11/13/20 11/14/20 11/14/20 21:14 03:29 06:40 RBC Hgb 11.7 L Hct 35.3 L D RDW 15.8 H Lymph % (Auto) [place] % (Auto) 9.8 H Lymph # (Auto) [place] # (Auto) 1.0 H Seg Neutrophils % PT INR ABG pH POC ABG pCO2 POC ABG pO2 124.2 H ABG pO2 ABG O2 Saturation ABG Hemoglobin 11.9 L ABG Sodium 134.0 L ABG Glucose 108 H Carboxyhemoglobin Sodium Chloride Carbon Dioxide BUN Creatinine Glucose POC Glucose 108 H Calcium AST ALT CK-MB (CK-2) Total Protein Albumin Arterial Blood Glucose 108 H Ur Specific [place] Phenobarbital 11/14/20 11/14/20 11/14/20 06:40 18:04 18:45 RBC Hgb Hct RDW Lymph % (Auto) [place] % (Auto) Lymph # (Auto) [place] # (Auto) Seg Neutrophils % PT INR ABG pH POC ABG pCO2 POC ABG pO2 ABG pO2 ABG O2 Saturation ABG Hemoglobin ABG Sodium ABG Glucose Carboxyhemoglobin Sodium 134 L Chloride Carbon Dioxide BUN Creatinine 0.7 L Glucose 107 H POC Glucose 119 H 116 H Calcium 8.0 L AST 96 H ALT 78 H CK-MB (CK-2) Total Protein 6.0 L Albumin 2.6 L Arterial Blood Glucose Ur Specific [place] Phenobarbital 11/14/20 11/15/20 11/15/20 21:05 04:07 05:21 RBC Hgb 11.6 L Hct 35.1 L RDW 15.7 H Lymph % (Auto) [place] % (Auto) 12.7 H Lymph # (Auto) [place] # (Auto) 1.3 H Seg Neutrophils % PT INR ABG pH 7.461 H POC ABG pCO2 POC ABG pO2 ABG pO2 ABG O2 Saturation ABG Hemoglobin ABG Sodium 132.6 L ABG Glucose 114 H Carboxyhemoglobin Sodium Chloride Carbon Dioxide BUN Creatinine Glucose POC Glucose 109 H Calcium AST ALT CK-MB (CK-2) Total Protein Albumin Arterial Blood Glucose 114 H Ur Specific [place] Phenobarbital 11/15/20 11/15/20 11/16/20 05:21 21:31 04:00 RBC Hgb Hct RDW Lymph % (Auto) [place] % (Auto) Lymph # (Auto) [place] # (Auto) Seg Neutrophils % PT INR ABG pH 7.485 H POC ABG pCO2 POC ABG pO2 108.7 H ABG pO2 ABG O2 Saturation ABG Hemoglobin 11.6 L ABG Sodium 132.6 L ABG Glucose 111 H Carboxyhemoglobin Sodium 134 L Chloride Carbon Dioxide BUN Creatinine 0.7 L Glucose 106 H POC Glucose 109 H Calcium AST 54 H ALT 58 H CK-MB (CK-2) Total Protein Albumin 2.8 L Arterial Blood Glucose 111 H Ur Specific [place] Phenobarbital 11/16/20 11/16/20 11/16/20 04:25 04:25 11:34 RBC Hgb Hct RDW 16.1 H Lymph % (Auto) [place] % (Auto) 11.8 H Lymph # (Auto) [place] # (Auto) 1.0 H Seg Neutrophils % PT INR ABG pH POC ABG pCO2 POC ABG pO2 ABG pO2 ABG O2 Saturation ABG Hemoglobin ABG Sodium ABG Glucose Carboxyhemoglobin Sodium 136 L Chloride Carbon Dioxide 31 H BUN Creatinine 0.6 L Glucose 111 H POC Glucose 108 H Calcium AST 45 H ALT CK-MB (CK-2) Total Protein Albumin 2.7 L Arterial Blood Glucose Ur Specific [place] Phenobarbital 11/16/20 11/16/20 11/17/20 16:06 23:27 02:20 RBC Hgb Hct RDW Lymph % (Auto) [place] % (Auto) Lymph # (Auto) [place] # (Auto) Seg Neutrophils % PT INR ABG pH POC ABG pCO2 POC ABG pO2 ABG pO2 ABG O2 Saturation ABG Hemoglobin ABG Sodium ABG Glucose Carboxyhemoglobin Sodium Chloride Carbon Dioxide BUN Creatinine Glucose POC Glucose 110 H 112 H 110 H Calcium AST ALT CK-MB (CK-2) Total Protein Albumin Arterial Blood Glucose Ur Specific [place] Phenobarbital 11/17/20 11/17/20 11/17/20 03:51 04:30 04:30 RBC Hgb 10.6 L Hct 31.3 L RDW 15.8 H Lymph % (Auto) [place] % (Auto) 12.9 H Lymph # (Auto) [place] # (Auto) 1.0 H Seg Neutrophils % PT INR ABG pH 7.495 H POC ABG pCO2 POC ABG pO2 ABG pO2 ABG O2 Saturation ABG Hemoglobin 11.0 L ABG Sodium 135.5 L ABG Glucose 110 H Carboxyhemoglobin Sodium 135 L Chloride Carbon Dioxide 31 H BUN Creatinine 0.6 L Glucose 110 H POC Glucose Calcium AST ALT CK-MB (CK-2) Total Protein 5.7 L Albumin 2.5 L Arterial Blood Glucose 110 H Ur Specific [place] Phenobarbital 11/17/20 11/18/20 11/18/20 11:40 05:44 05:44 RBC Hgb 11.6 L Hct 35.1 L RDW 16.1 H Lymph % (Auto) [place] % (Auto) 10.4 H Lymph # (Auto) [place] # (Auto) 1.1 H Seg Neutrophils % PT INR ABG pH 7.499 H POC ABG pCO2 POC ABG pO2 140.8 H ABG pO2 ABG O2 Saturation ABG Hemoglobin 11.8 L ABG Sodium 135.1 L ABG Glucose 110 H Carboxyhemoglobin 0.4 L Sodium 134 L Chloride 96.3 L Carbon Dioxide 31 H BUN Creatinine 0.5 L Glucose POC Glucose Calcium AST ALT CK-MB (CK-2) Total Protein Albumin 2.5 L Arterial Blood Glucose 110 H Ur Specific [place] Phenobarbital
[2020-11-18] MEDS: FOLIC ACID 1 MG TAB PO SCH (12:16)
--- NOTE | 2020-11-18 12:31 | Progress Note ---
Assessment and Plan Assessment and plan: This is a 60-year-old male with seizure disorder current alcohol and tobacco abuse presents to the hospital on 11/11 after being found unresponsive. On arrival of EMS patient was found to be hypoglycemic and given IV dextrose after which he recovered and refused further care. EMS was called again by family after the patient was found unresponsive and was given Narcan with no change. Patient was noted to have seizure activity and given 7 mg IV Ativan total including 3 from EMS. Patient was loaded with Keppra 2 g and was intubated for airway protection. Patient was found to have metabolic acidosis and hypoglycemia on BMP. Patient was found to be hypothermic and hypertensive in the emergency department. Patient's UDS was positive for barbiturates. Patient was admitted to the hospital service for further work-up with consults to [facility] and neurology. SIRS Acute hypoxic respiratory failure s/p Status epilepticus Acute encephalopathy Seizure disorder Lactic acidosis Hypoglycemia EtOH and tobacco abuse Transaminitis Hyponatremia 11/12. Patient remains intubated. On Keppra and phenobarbital. Neurology evaluation appreciated. EEG ordered. May need transfer to tertiary care for continuous EEG pending EEG results. 11/13. Remains intubated and on antiseizure medications. EEG has been performed but results are pending. Neurology on board 11/14. Remains intubated and on antiseizure medications. EEG has been performed but results are pending. Neurology on board 11/15: EEG is consistent with significant encephalopathy and does not rule out the possibility of epilepsy, patient remains on mechanical ventilation with minimal vent settings. No acute events reported overnight. 11/16: No acute events reported overnight, patient opens eyes spontaneously and withdraws to pain bilateral lower extremities. At the time my examination patient was on CMV 450/18/64/0.30 and has been started on a CPAP trial subsequently. No evidence of generalized seizures noted. Patient is a lui of the state 11/17: Patient was extubated today per CCM, no acute events reported overnight. Patient has a right sided gaze during my examination and was on CPAP 06/08 at 30% and he opens his eyes spontaneously. He does withdraw bilateral lower extremities to pain. His Keppra was decreased yesterday. ST evaluation pending 11/18: Follow-up EEG reading. Patient currently off sedation. Nursing to place Dobbhoff tube for feeding. Speech therapy to continue swallow evaluation. No new seizure activity. Continue phenobarbital and Keppra. Seizure precautions. Transfer to [facility] today. History Interval history: No new seizure activity Hospitalist Physical - Constitutional Vitals: Temp Pulse Resp BP Pulse Ox 99.0 F 66 19 113/77 99 11/18/20 07:13 11/18/20 12:21 11/18/20 12:21 11/18/20 12:21 11/18/20 12:21 General appearance: Present: no acute distress, other (unresponsive) - EENT Eyes: Present: PERRL, EOM intact ENT: hearing intact, clear oral mucosa, dentition normal - Neck Neck: Present: supple, normal ROM - Respiratory Respiratory effort: normal Respiratory: bilateral: CTA - Cardiovascular Rhythm: regular Heart Sounds: Present: S1 & S2. Absent: gallop, rub - Extremities Extremities: no ischemia, No edema, Full ROM - Abdominal General gastrointestinal: soft, non-tender, non-distended, normal bowel sounds - Integumentary Integumentary: Present: clear, warm, dry - Neurologic Neurologic: CNII-XII intact, moves all extremities HEART Score - HEART Score Troponin: Troponin T < 0.010 ng/mL (0.00-0.029) 11/11/20 09:02 Results - Labs CBC & Chem 7: 11/18/20 05:44 11/18/20 05:44 Labs: Laboratory Last Values WBC 10.2 K/mm3 (4.5-11.0) 11/18/20 05:44 RBC 4.06 M/mm3 (3.65-5.03) 11/18/20 05:44 Hgb 11.6 gm/dl (11.8-15.2) L 11/18/20 05:44 Hct 35.1 % (35.5-45.6) L 11/18/20 05:44 MCV 86 fl (84-94) 11/18/20 05:44 MCH 29 pg (28-32) 11/18/20 05:44 MCHC 33 % (32-34) 11/18/20 05:44 RDW 16.1 % (13.2-15.2) H 11/18/20 05:44 Plt Count 228 K/mm3 (140-440) 11/18/20 05:44 Lymph % (Auto) 20.4 % (13.4-35.0) 11/18/20 05:44 [place] % (Auto) 10.4 % (0.0-7.3) H 11/18/20 05:44 Eos % (Auto) 2.5 % (0.0-4.3) 11/18/20 05:44 Baso % (Auto) 1.0 % (0.0-1.8) 11/18/20 05:44 Lymph # (Auto) 2.1 K/mm3 (1.2-5.4) 11/18/20 05:44 [place] # (Auto) 1.1 K/mm3 (0.0-0.8) H 11/18/20 05:44 Eos # (Auto) 0.3 K/mm3 (0.0-0.4) 11/18/20 05:44 Baso # (Auto) 0.1 K/mm3 (0.0-0.1) 11/18/20 05:44 Seg Neutrophils % 65.7 % (40.0-70.0) 11/18/20 05:44 Seg Neutrophils # 6.7 K/mm3 (1.8-7.7) 11/18/20 05:44 PT 11.5 Sec. (12.2-14.9) L 11/11/20 09:02 INR 0.86 (0.87-1.13) L 11/11/20 09:02 APTT 25.5 Sec. (24.2-36.6) 11/11/20 09:02 Thrombin Time 17.0 Sec. (15.1-19.6) 11/11/20 09:02 ABG pH 7.499 (7.320-7.450) H 11/17/20 11:40 POC ABG pCO2 36.3 mmHg (32.0-48.0) 11/17/20 11:40 ABG pCO2 33.9 mm Hg 11/11/20 10:45 POC ABG pO2 140.8 mmHg (83-108) H 11/17/20 11:40 ABG pO2 222.2 mm Hg (80.0-90.0) H 11/11/20 10:45 POC ABG HCO3 27.6 11/17/20 11:40 ABG HCO3 24.9 mmol/L (20.0-26.0) 11/11/20 10:45 ABG O2 Saturation 98.1 (0-100) 11/17/20 11:40 ABG O2 Content 19.4 (0.0-44) 11/11/20 10:45 POC ABG Base Excess 4.4 11/17/20 11:40 ABG Base Excess 1.9 mmol/L (-2.0-3.0) 11/11/20 10:45 ABG Hemoglobin 11.8 (12.0-17.5) L 11/17/20 11:40 ABG Oxyhemoglobin 97.4 (94-98) 11/17/20 11:40 ABG Carboxyhemoglobin 0.6 % (0.0-5.0) 11/11/20 10:45 ABG Methemoglobin 0.3 (0.0-1.5) 11/17/20 11:40 ABG Sodium 135.1 mmol/L (136.0-145.0) L 11/17/20 11:40 ABG Potassium 4.2 mmol/L (3.40-4.50) 11/17/20 11:40 ABG Chloride 102.0 mmol/L (98-107) 11/17/20 11:40 ABG Glucose 110 mg/dL (65-95) H 11/17/20 11:40 Oxyhemoglobin 98.5 % (95.0-99.0) 11/11/20 10:45 Carboxyhemoglobin 0.4 (0.5-1.5) L 11/17/20 11:40 FiO2 21 % 11/11/20 10:45 FiO2 % 30 11/17/20 11:40 Sodium 134 mmol/L (137-145) L 11/18/20 05:44 Potassium 4.3 mmol/L (3.6-5.0) 11/18/20 05:44 Chloride 96.3 mmol/L (98-107) L 11/18/20 05:44 Carbon Dioxide 31 mmol/L (22-30) H 11/18/20 05:44 Anion Gap 11 mmol/L 11/18/20 05:44 BUN 13 mg/dL (9-20) 11/18/20 05:44 Creatinine 0.5 mg/dL (0.8-1.3) L 11/18/20 05:44 Estimated GFR > 60 ml/min 11/18/20 05:44 BUN/Creatinine Ratio 26 % 11/18/20 05:44 Glucose 99 mg/dL (75-100) 11/18/20 05:44 POC Glucose 90 mg/dL (70-105) 11/18/20 05:54 Hemoglobin A1c 5.4 % (4-6) 11/12/20 07:26 Calcium 8.8 mg/dL (8.4-10.2) 11/18/20 05:44 Magnesium 2.00 mg/dL (1.7-2.3) 11/11/20 09:02 Total Bilirubin 0.40 mg/dL (0.1-1.2) 11/18/20 05:44 AST 36 units/L (5-40) 11/18/20 05:44 ALT 32 units/L (7-56) 11/18/20 05:44 Alkaline Phosphatase 80 units/L (35-129) 11/18/20 05:44 Ammonia 29.0 umol/L (25-60) 11/12/20 08:47 Total Creatine Kinase 169 units/L (55-170) 11/11/20 09:02 CK-MB (CK-2) 6.6 ng/mL (0.0-4.0) H 11/11/20 09:02 CK-MB (CK-2) Rel Index 3.9 (0-4) 11/11/20 09:02 Troponin T < 0.010 ng/mL (0.00-0.029) 11/11/20 09:02 Total Protein 6.3 g/dL (6.3-8.2) 11/18/20 05:44 Albumin 2.5 g/dL (3.9-5) L 11/18/20 05:44 Albumin/Globulin Ratio 0.7 % 11/18/20 05:44 Arterial Blood Glucose 110 mg/dL (65-95) H 11/17/20 11:40 Arterial Blood Ionized Calcium 4.9 mg/dL (4.6-5.3) 11/17/20 11:40 Urine Color Yellow (Yellow) 11/11/20 20:27 Urine Turbidity Clear (Clear) 11/11/20 20:27 Urine pH 6.0 (5.0-7.0) 11/11/20 20:27 Ur Specific [place] 1.045 (1.003-1.030) H 11/11/20 20:27 Urine Protein 100 mg/dl mg/dL (Negative) 11/11/20 20:27 Urine Glucose (UA) Neg mg/dL (Negative) 11/11/20 20:27 Urine Ketones Neg mg/dL (Negative) 11/11/20 20:27 Urine Blood Sm (Negative) 11/11/20 20:27 Urine Nitrite Neg (Negative) 11/11/20 20: Urine Bilirubin Neg (Negative) 11/11/20 20:27 Urine Urobilinogen 4.0 mg/dL (<2.0) 11/11/20 20:27 Ur Leukocyte Esterase Neg (Negative) 11/11/20 20:27 Urine WBC (Auto) 1.0 /HPF (0.0-6.0) 11/11/20 20: Urine RBC (Auto) 4.0 /HPF (0.0-6.0) 11/11/20 20:27 U Epithel Cells (Auto) 12.0 /HPF (0-13.0) 11/11/20 20:27 Urine Bacteria (Auto) 1+ /HPF (Negative) 11/11/20 20:27 Urine Mucus Few /HPF 11/11/20 20:27 Urine Opiates Screen Negative 11/11/20 20:27 Urine Methadone Screen Negative 11/11/20 20:27 Ur Barbiturates Screen Positive 11/11/20 20:27 Ur Phencyclidine Scrn Negative 11/11/20 20:27 Ur Amphetamines Screen Negative 11/11/20 20:27 Phenobarbital 4.3 ug/mL (15.0-40.0) L 11/12/20 08:47 U Benzodiazepines Scrn Negative 11/11/20 20:27 Urine Cocaine Screen Negative 11/11/20 20:27 U Marijuana (THC) Screen Negative 11/11/20 20:27 Drugs of Abuse Note Disclamer 11/11/20 20:27 Plasma/Serum Alcohol < 0.01 % (0-0.07) 11/11/20 09:02 Coronavirus (PCR) Negative (Negative) 11/12/20 08:00 [place]/IV: Voiding Method Indwelling Catheter Active Medications - Current Medications Current Medications: Generic Name Dose Route Start Last Admin Trade Name Freq PRN Reason Stop Dose Admin Acetaminophen 650 mg 11/11/20 22:58 Acetaminophen 325 Mg Tab PO Q4H PRN Pain MILD(1-3)/Fever >100.5/BAR Albuterol 2.5 mg 11/11/20 23:18 Albuterol 2.5 Mg/3 Ml Nebu IH Q3HRT PRN Wheezing Lipase/Protease/Amylase 1 each 11/12/20 12:00 Lipase 10,500/Protease 25,000/Amylase 43,750 (Units) Dr Rangel FEEDTUBE PRN PRN For Clogged Feeding Tube Dextrose 50 ml 11/11/20 22:11 11/17/20 23:29 Dextrose 50% In Water (25gm) 50 Ml Syringe IV 10 ml ONCE PRN Administration Hypoglycemia Protocol Enoxaparin Sodium 40 mg 11/12/20 22:00 11/17/20 21:07 Enoxaparin 40 Mg/0.4 Ml Inj SUB-Q 40 mg QDAY@2200 [facility] Administration Protocol Famotidine 20 mg 11/15/20 10:00 11/18/20 09:26 Famotidine 20 Mg Tab PO Not Given BID [facility] Folic Acid 1 mg 11/16/20 10:00 11/18/20 12:16 Folic Acid 1 Mg Tab PO Not Given DAILY [facility] Hydralazine HCl 10 mg 11/12/20 10:30 11/14/20 07:30 Hydralazine 20 Mg/1 Ml Inj IV 10 mg Q4H PRN Administration Hypertension Hydrophilic Ointment 1 applic 11/11/20 09:14 Lip Therapy Vaseline TP Q2HR PRN Dry Lips Insulin Human Regular 0 units 11/12/20 18:00 11/18/20 06:29 Insulin Regular, Human 100 Units/1 Ml SUB-Q Not Given Q6H [facility] Protocol Levetiracetam 1,000 mg 11/16/20 22:00 11/18/20 09:26 Levetiracetam 500 Mg/5 Ml Oral Liqd PO 1,000 mg BID KIRK Administration Metoclopramide HCl 10 mg 11/11/20 22:58 Metoclopramide 10 Mg/2 Ml Inj IV Q6H PRN Nausea And Vomiting Multi-Ingred Cream/Lotion/Oil/Oint 1 applic 11/11/20 09:14 Mineral Oil/Petrolatum, White Ophth Oint 3.5 Gm OU Q4HR PRN Dry Eye(s) Multivitamins 1 each 11/13/20 00:00 11/18/20 03:41 Multivitamins ,Therapeutic Tab PO Not Given Q24H KIRK Naloxone HCl 2 mg 11/11/20 08:33 Naloxone 0.4 Mg/1 Ml Inj IV Q2MIN PRN Res Rate </= 8 or 02 SAT < 92% Ondansetron HCl 4 mg 11/11/20 22:58 Ondansetron 4 Mg/2 Ml Inj IV Q3H PRN Nausea And Vomiting Phenobarbital 15 mg 11/11/20 23:45 11/18/20 09:26 Phenobarbital 15 Mg Tab PO Not Given BID KIRK Simple Syrup 15 ml 11/12/20 12:00 Simple Syrup 15 Ml FEEDTUBE PRN PRN Hypoglycemia Simple Syrup 30 ml 11/12/20 12:00 Simple Syrup 15 Ml FEEDTUBE PRN PRN Hypoglycemia Sodium Bicarbonate 325 mg 11/12/20 12:00 Sodium Bicarbonate 325 Mg Tab FEEDTUBE PRN PRN For Clogged Feeding Tube Sodium Chloride 10 ml 11/11/20 23:00 11/18/20 09:27 Sodium Chloride 0.9% 10 Ml Flush Syringe IV 10 ml BID KIRK Administration Sodium Chloride 10 ml 11/11/20 22:58 Sodium Chloride 0.9% 10 Ml Flush Syringe IV PRN PRN LINE FLUSH Thiamine HCl 100 mg 11/16/20 10:00 11/18/20 09:26 Thiamine 100 Mg Tab PO Not Given QDAY KIRK Nutrition/Malnutrition Assess - Dietary Evaluation Nutrition/Malnutrition Findings: Nutrition Notes Start: 11/12/20 08:26 Freq: Status: Active Protocol: Document 11/18/20 09:50 AL (Rec: 11/18/20 09:59 AL [id number]) Co-Sign 11/18/20 09:50 LP Nutrition Notes Initial or Follow up Reassessment Current Diagnosis Respiratory Failure,Stroke Other Pertinent Diagnosis Seizures Current Diet Vital AF 1.2 at 60 ml/h Labs/Tests Na 134 Cr .5 Pertinent Medications D5 NS at 75 ml/hr Height 5 ft 9 in Weight 70 kg [place] Body Weight (kg) 72.72 BMI 22.8 Weight Status Appropriate Subjective/Other Information F/U for TF tolerance. Pt. was extubated on 11/17. Per RN, feeding tube was removed and LINE PRODUCER is supposed to come and conduct swallow eval. If pt fails swallow eval, TF most likely to continue Percent of energy/protein needs met: 0%/0% Burn Absent Trauma Absent GI Symptoms None Current % PO Negligible Minimum of two criteria No physical signs of malnutrition #1 Nutrition Diagnosis Inadequate oral intake Diagnosis Progress(for reassessment Continues documentation) Is patient on ventilator? No Is Patient Ambulatory and/or Out of Bed No REE-([facility]-confined to bed) [phone] Calculation Used for Recommendations [facility] Additional Notes Protein: 70-84 g (1.0-1.2 g/kg ABW) Fluid: 1 ml/kcal Nutrition Intervention Change Diet Order: Change TF Nutrition Support: Jevity 1.2 at 60 ml/hr Flush 100 mL Kcal 1,728 Protein (gm) 80 Fluid (mL) 1,162 Goal #1 Diet advancement Goal #2 Meet 75% of estimated energy and protein needs via PO or TF Anticipated Discharge Needs: Unable to determine at the time Follow-Up By: 11/19/20 Additional Comments F/U for LINE PRODUCER swallow eval/diet advancement or TF change/ tolerance.
--- NOTE | 2020-11-18 13:06 | XRay Report ---
XR abdomen 1V ap INDICATION / CLINICAL INFORMATION: dobhoff placement verification. COMPARISON: 11/17/2020 FINDINGS/IMPRESSION: No Dobbhoff catheter is visualized below the diaphragm. Recommend repositioning and reimaging prior t o use. Signer Name: Prashanth Barnes MD Signed: 11/18/2020 1:02 PM Workstation Name: [id number]
[2020-11-18] MEDS ORDERED: fentaNYL 100 MCG/2 ML INJ ONE (13:35)
[2020-11-18] MEDS ORDERED: MIDAZOLAM 2 MG/2 ML INJ ONE (13:35)
[2020-11-18] MEDS ORDERED: fentaNYL 100 MCG/2 ML INJ IV ONE (14:00)
[2020-11-18] MEDS ORDERED: MIDAZOLAM 2 MG/2 ML INJ IV ONE (14:00)
[2020-11-18] MEDS ORDERED: SODIUM CHLORIDE IRRI 1000 ML 1,000 ML IR ONE (14:27)
[2020-11-18] MEDS ORDERED: ETOMIDATE 20 MG/10 ML INJ IV ONE ×2 (14:41→15:00)
[2020-11-18] MEDS ORDERED: ROCURONIUM 50 MG/5 ML INJ IV ONE ×2 (14:41→15:00)
--- NOTE | 2020-11-18 15:12 | Event Note ---
Date: 11/18/20 Called to beside to assess Dobb yessy placement and tube being stuck. Attempted to pull tube back myself with much resistance met. Used disposable and portable bronchoscope to attempt to find dobb-yessy. Seen a large mass on the esophagus above the epiglottis that miladis appears to be inside of. Spoke with GI who agrees with current plan which will consists of noncontrast CT of neck and chest and I electively intubated patient to protect airway and in the event that he would need longer procedures. Total time spent 60 minutes of critical care time.
--- NOTE | 2020-11-18 15:13 | XRay Report ---
CHEST 1 VIEW 11/18/2020 3:00 PM INDICATION / CLINICAL INFORMATION: ETT placement. COMPARISON: 11/17/2020. FINDINGS: SUPPORT DEVICES: Endotracheal tube tip projects approximately 2.2 cm superior to the kaitlynn. HEART / MEDIASTINUM: No significant abnormality. LUNGS / PLEURA: No significant pulmonary or pleural abnormality. No pneumothorax. ADDITIONAL FINDINGS: No significant additional findings. IMPRESSION: 1. Endotracheal tube in expected position. Signer Name: Marino Amor MD Signed: 11/18/2020 3:09 PM Workstation Name: [id number]
[2020-11-18] MEDS ORDERED: SUCCINYLCHOLINE CHLORIDE 200 MG/10 ML INJ MDV ONE (15:54)
--- NOTE | 2020-11-18 17:16 | Cat Scan Report ---
CT CHEST WITHOUT CONTRAST INDICATION / CLINICAL INFORMATION: esophageal mass. TECHNIQUE: Axial CT images were obtained through the chest without contrast. All CT scans at this location are p erformed using CT dose reduction for ALARA by means of automated exposure control. COMPARISON: None available. FINDINGS: Exam is limited for evaluation of the esophagus secondary to lack of intravenous contrast and oral co ntrast Endotracheal tube has tip in good position HEART: No significant abnormality. Coronary artery calcifications are present. THORACIC AORTA: Atherosclerotic calcified plaques present thoracic aorta MEDIASTINUM and FLORENCIO: No significant abnormality. LUNGS: 0.6 cm pulmonary nodules present right lower lobe best delineated image 40 series 4 Patchy par enchymal changes present both lower lobes PLEURA: Minimum pleural fluid is present. No pneumothorax. ADDITIONAL FINDINGS: 1.0 cm low dense lesion right lower liver. UPPER ABDOMEN: No significant abnormality. SKELETAL SYSTEM: No significant abnormality. IMPRESSION: 1. Limited examination as noted 2. Right lower lobe pulmonary nodule, metastatic disease is a concern 3. Low dense lesion within the liver, metastatic disease concern Signer Name: Marlon Moreno MD Signed: 11/18/2020 5:12 PM Workstation Name: [id number]
--- NOTE | 2020-11-18 18:08 | Cat Scan Report ---
CT NECK WITHOUT INTRAVENOUS CONTRAST AND WITH MULTIPLANAR RECONSTRUCTION CLINICAL HISTORY: Possible esophageal mass TECHNIQUE: 3.75 mm thick contiguous axial scans were obtained from the skull base down to the aortic archin erin tion to evaluation of axial source images sagittal and coronal multiplanar reconstructions were produ emeka and reviewed for this report. All CT imaging studies performed at this facility utilize dose modulation, iterative reconstruction o r weight based dosing, if appropriate, to obtain the lowest achievable radiation dose. FINDINGS: AIRWAY: An endotracheal tube is sent with cuff inflated in the subglottic airway. Based on comparison to recent CT chest the tip of the endotracheal tube is observed to be located about 4 cm above the l evel of the kaitlynn. A nasogastric tube is present. This tube is in an abnormal location coiled in the patient's oral cavity. The radiopaque catheter tip is located just medial to the orotracheal tube. T here is opacification of the posterior nasopharynx, oropharynx and hypopharynx and much of the nasal cavity likely due to retained secretions related to endotracheal intubation. I do not detect a mass a long the course of the cervical esophagus. LYMPH NODES: There is no indication of cervical lymphadenopathy. ORAL CAVITY/FLOOR OF MOUTH: Evaluation is limited secondary to orotracheal tube and coiled nasogastri c tube within the oral cavity. Beam hardening artifact is present related to the tip of the nasogastr ic tube. MAJOR SALIVARY GLANDS: The parotid and submandibular salivary glands have a normal appearance. NASAL CAVITY AND PARANASAL SINUSES: There is opacification and expansion of the left maxillary sinus. There is remodeling of the medial wall of the left maxillary sinus. This may be a chronic finding at this inflammatory changes are present in the maxillary sinus back through head CT 03/02/2020. Mucocel e or polyp or sinonasal tumor could be considered in the differential diagnosis for this finding. ORBITS:No abnormalities of the visualized portions of the orbits are identified. Globes, optic nerves , extraocular muscles and lacrimal glands have an unremarkable appearance. THYROID GLAND: The thyroid gland is normal in size and homogeneous in attenuation. No focal thyroid l esions are identified. TEMPORAL BONES:Mastoid air cells are normally pneumatized. CERVICAL SPINE: Widespread cervical spondylosis is noted but there is no indication of central canal stenosis. LUNG APICES: Evaluation of the lung apices reveals no abnormality. There is no indication of lung nod ule or infiltrate. The visualized portions of the superior mediastinum have an unremarkable appearanc e. IMPRESSION: 1. Nasogastric tube is in an abnormal location coiled within the patient's mouth. 2. Endotracheal tube is placed with cuff in the subglottic airway. The orotracheal tube tip is about 4 cm above the level of the kaitlynn at the time of this study. 3. Retained secretions resultant opacification of the nasopharynx, oropharynx and hypopharynx. This i s related to endotracheal intubation. IMPORTANT FINDING: Time of Communication (BATTING MACHINE OPERATOR/CDT): 1655 Central standard time Licensed Practitioner Receiving Report: Rohan, the patient's intensive care unit nurse. Report was called due to abnormal placement of the patient's nasogastric tube in the oral cavity. Signer Name: Urban Kauffman MD Signed: 11/18/2020 6:03 PM Workstation Name: [id number]
[2020-11-18] MEDS: ENOXAPARIN 40 MG/0.4 ML INJ SUB-Q SCH (22:07)
[2020-11-18] MEDS: levETIRAcetam 1,000 MG in DEXTROSE 5% IN WATER 100 ML IV SCH (22:11)
[2020-11-19] MEDS: DEXTROSE 5% IN WATER 1,000 ML IV SCH ×2 (01:49→15:09)
[2020-11-19] MEDS: INSULIN REGULAR, HUMAN 100 UNITS/1 ML SUB-Q SCH ×3 (06:33→11:11)
[2020-11-19] MEDS: MULTIVITAMINS ,THERAPEUTIC TAB PO SCH (06:38)
[2020-11-19] MEDS: FAMOTIDINE 20 MG/2 ML INJ IV SCH ×2 (09:05→23:14)
--- NOTE | 2020-11-19 09:13 | Progress Note ---
Assessment and Plan 70 y/o male with acute respiratory failure secondary to seizure activity. 11/19/20: Will extubate today as I do not feel airway is in danger. Also do not feel comfortable, even as a physician replacing DH or NG tube given circumstances on yesterday. Suggest consult with IR vs GI for Peg tube placement. Likely would have come to this anyway given patient mental state. Once extubated and monitored. Can go to the floor. Continue D5W until nutrition can be addressed with proper feeding tube. 11/18/20: Will transfer to [facility] today. Asked nursing to place Dobbhoff tube for feeds. Jordan visited patient on yesterday. Will sign off once out of unit. 11/17/20: Will attempt extubation today. Patient is a jordan of the [facility]. This was found out on yesterday. Once contact is available. Will update them. Remainder is negative. Monitor in ICU post extubation for at least 12-24 hours. 11/16/20: Will decrease Keppra to 1000 BID. Obtain MRI as neurology will likely want this. Continue to monitor Mental state and PSV trials as tolerated. Overall prognosis is guarded to poor. 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 No sedatives whatsoever. 11/14/20: Follow up EEG read. No sedation. Follow up Neurology recs. 1. Follow up EEG read 2. No sedation 3. PSV as tolerated 4. Guarded prognosis. CCT 31 minutes. Subjective Date of service: 11/19/20 Interval history: Finally able to remove John. Reviewed CT of neck and it was coiled in the mouth but this was after we freed if from whatever it was caught on more distally. CAme out this am with ease. Patient sedated on diprovan 10. BP stable. Objective Vital Signs - 12hr 11/18/20 11/18/20 11/18/20 21:11 21:21 21:31 Temperature Pulse Rate 65 65 67 Pulse Rate [ From Monitor] Respiratory 18 18 18 Rate Blood Pressure 191/92 191/92 191/92 O2 Sat by Pulse 99 99 99 Oximetry 11/18/20 11/18/20 11/18/20 21:41 21:51 22:00 Temperature Pulse Rate 71 65 66 Pulse Rate [ From Monitor] Respiratory 18 18 18 Rate Blood Pressure 191/92 191/92 179/89 O2 Sat by Pulse 100 100 100 Oximetry 11/18/20 11/18/20 11/18/20 22:11 22:21 22:31 Temperature Pulse Rate 69 67 67 Pulse Rate [ From Monitor] Respiratory 18 18 18 Rate Blood Pressure 179/89 179/89 179/89 O2 Sat by Pulse 100 100 100 Oximetry 11/18/20 11/18/20 11/18/20 22:41 22:51 23:00 Temperature Pulse Rate 67 68 68 Pulse Rate [ From Monitor] Respiratory 18 18 18 Rate Blood Pressure 179/89 179/89 182/93 O2 Sat by Pulse 100 99 100 Oximetry 11/18/20 11/18/20 11/18/20 23:11 23:21 23:31 Temperature Pulse Rate 67 66 65 Pulse Rate [ From Monitor] Respiratory 18 18 18 Rate Blood Pressure 182/93 182/93 182/93 O2 Sat by Pulse 100 100 100 Oximetry 11/18/20 11/18/20 11/18/20 23:39 23:41 23:51 Temperature 98.8 F Pulse Rate 67 66 Pulse Rate [ From Monitor] Respiratory 18 18 Rate Blood Pressure 182/93 182/93 O2 Sat by Pulse 99 100 Oximetry 11/19/20 11/19/20 11/19/20 00:00 00:11 00:21 Temperature Pulse Rate 66 67 67 Pulse Rate [ 72 From Monitor] Respiratory 18 18 18 Rate Blood Pressure 173/90 173/90 173/90 O2 Sat by Pulse 100 100 100 Oximetry 11/19/20 11/19/20 11/19/20 00:30 00:31 00:41 Temperature Pulse Rate 66 67 72 Pulse Rate [ From Monitor] Respiratory 18 18 Rate Blood Pressure 173/90 173/90 173/90 O2 Sat by Pulse 100 100 98 Oximetry 11/19/20 11/19/20 11/19/20 00:51 01:00 01:11 Temperature Pulse Rate 71 71 76 Pulse Rate [ From Monitor] Respiratory 18 18 15 Rate Blood Pressure 173/90 173/90 173/90 O2 Sat by Pulse 99 99 97 Oximetry 11/19/20 11/19/20 11/19/20 01:21 01:31 01:41 Temperature Pulse Rate 71 72 72 Pulse Rate [ From Monitor] Respiratory 18 17 18 Rate Blood Pressure 173/90 173/90 173/90 O2 Sat by Pulse 99 98 99 Oximetry 11/19/20 11/19/20 11/19/20 01:51 02:00 02:11 Temperature Pulse Rate 74 75 73 Pulse Rate [ From Monitor] Respiratory 18 18 17 Rate Blood Pressure 173/90 171/94 171/94 O2 Sat by Pulse 99 99 99 Oximetry 11/19/20 11/19/20 11/19/20 02:21 02:31 02:41 Temperature Pulse Rate 74 72 71 Pulse Rate [ From Monitor] Respiratory 18 18 18 Rate Blood Pressure 171/94 171/94 171/94 O2 Sat by Pulse 100 99 99 Oximetry 11/19/20 11/19/20 11/19/20 02:51 03:00 03:11 Temperature 99.2 F Pulse Rate 69 68 67 Pulse Rate [ From Monitor] Respiratory 18 18 18 Rate Blood Pressure 171/94 146/85 146/85 O2 Sat by Pulse 99 100 100 Oximetry 11/19/20 11/19/20 11/19/20 03:21 03:31 03:41 Temperature Pulse Rate 68 70 68 Pulse Rate [ From Monitor] Respiratory 17 18 18 Rate Blood Pressure 146/85 146/85 146/85 O2 Sat by Pulse 99 99 99 Oximetry 11/19/20 11/19/20 11/19/20 03:51 04:00 04:11 Temperature Pulse Rate 68 68 69 Pulse Rate [ 68 From Monitor] Respiratory 18 18 18 Rate Blood Pressure 146/85 154/88 154/88 O2 Sat by Pulse 100 99 98 Oximetry 11/19/20 11/19/20 11/19/20 04:21 04:31 04:38 Temperature Pulse Rate 70 73 70 Pulse Rate [ From Monitor] Respiratory 18 17 Rate Blood Pressure 154/88 154/88 154/88 O2 Sat by Pulse 99 98 98 Oximetry 11/19/20 11/19/20 11/19/20 04:41 04:51 05:00 Temperature Pulse Rate 70 70 74 Pulse Rate [ From Monitor] Respiratory 19 18 17 Rate Blood Pressure 154/88 154/88 164/84 O2 Sat by Pulse 98 98 98 Oximetry 11/19/20 11/19/20 11/19/20 05:11 05:21 05:31 Temperature Pulse Rate 72 71 71 Pulse Rate [ From Monitor] Respiratory 18 17 18 Rate Blood Pressure 164/84 164/84 164/84 O2 Sat by Pulse 97 98 98 Oximetry 11/19/20 11/19/20 11/19/20 05:41 05:51 06:00 Temperature Pulse Rate 70 69 68 Pulse Rate [ From Monitor] Respiratory 18 18 18 Rate Blood Pressure 164/84 164/84 164/84 O2 Sat by Pulse 99 99 99 Oximetry 11/19/20 11/19/20 11/19/20 06:11 06:21 06:30 Temperature Pulse Rate 68 67 71 Pulse Rate [ From Monitor] Respiratory 18 18 16 Rate Blood Pressure 138/84 138/84 138/84 O2 Sat by Pulse 99 99 98 Oximetry 11/19/20 11/19/20 11/19/20 06:41 06:51 07:00 Temperature Pulse Rate 67 67 67 Pulse Rate [ From Monitor] Respiratory 18 18 17 Rate Blood Pressure 138/84 138/84 129/82 O2 Sat by Pulse 98 99 100 Oximetry 11/19/20 11/19/20 11/19/20 07:11 07:21 07:31 Temperature Pulse Rate 68 68 67 Pulse Rate [ From Monitor] Respiratory 18 19 18 Rate Blood Pressure 129/82 129/82 129/82 O2 Sat by Pulse 99 98 98 Oximetry 11/19/20 11/19/20 11/19/20 07:41 07:51 07:59 Temperature Pulse Rate 71 69 67 Pulse Rate [ 67 From Monitor] Respiratory 17 11 L 18 Rate Blood Pressure 129/82 129/82 O2 Sat by Pulse 98 98 99 Oximetry 11/19/20 11/19/20 11/19/20 08:00 08:11 08:21 Temperature 99.2 F Pulse Rate 67 69 69 Pulse Rate [ From Monitor] Respiratory 18 18 18 Rate Blood Pressure 126/77 126/77 126/77 O2 Sat by Pulse 99 98 98 Oximetry 11/19/20 11/19/20 11/19/20 08:31 08:41 08:51 Temperature Pulse Rate 70 69 70 Pulse Rate [ From Monitor] Respiratory 18 18 18 Rate Blood Pressure 126/77 126/77 126/77 O2 Sat by Pulse 98 98 98 Oximetry 11/19/20 09:00 Temperature Pulse Rate 70 Pulse Rate [ From Monitor] Respiratory 18 Rate Blood Pressure 146/80 O2 Sat by Pulse 97 Oximetry Constitutional: comatose Ascultation: Bilateral: clear Gastrointestinal: hypoactive bowel sounds Neurologic: non-focal exam, unable to assess CBC and BMP: 11/18/20 05:44 11/18/20 05:44 ABG, PT/INR, D-dimer: ABG ABG pH 7.499 (7.320-7.450) H 11/17/20 11:40 POC ABG pCO2 36.3 mmHg (32.0-48.0) 11/17/20 11:40 ABG pCO2 33.9 mm Hg 11/11/20 10:45 POC ABG pO2 140.8 mmHg (83-108) H 11/17/20 11:40 ABG pO2 222.2 mm Hg (80.0-90.0) H 11/11/20 10:45 POC ABG HCO3 27.6 11/17/20 11:40 ABG O2 Saturation 98.1 (0-100) 11/17/20 11:40 PT/INR, D-dimer PT 11.5 Sec. (12.2-14.9) L 11/11/20 09:02 INR 0.86 (0.87-1.13) L 11/11/20 09:02 Abnormal lab findings: Abnormal Labs 11/11/20 11/11/20 11/11/20 09:02 09:02 09:02 RBC 5.16 H Hgb Hct RDW 16.1 H Lymph % (Auto) 12.2 L Holmes % (Auto) Lymph # (Auto) 1.1 L Holmes # (Auto) Seg Neutrophils % 80.5 H PT 11.5 L INR 0.86 L ABG pH POC ABG pCO2 POC ABG pO2 ABG pO2 ABG O2 Saturation ABG Hemoglobin ABG Sodium ABG Glucose Carboxyhemoglobin Sodium Chloride Carbon Dioxide BUN Creatinine Glucose POC Glucose Calcium AST ALT CK-MB (CK-2) 6.6 H Total Protein Albumin Arterial Blood Glucose Ur Specific [place] Phenobarbital 11/11/20 11/11/20 11/11/20 09:02 10:45 20:27 RBC Hgb Hct RDW Lymph % (Auto) Holmes % (Auto) Lymph # (Auto) Holmes # (Auto) Seg Neutrophils % PT INR ABG pH 7.483 H POC ABG pCO2 POC ABG pO2 ABG pO2 222.2 H ABG O2 Saturation 99.3 H ABG Hemoglobin 13.7 L ABG Sodium ABG Glucose Carboxyhemoglobin Sodium Chloride Carbon Dioxide 20 L BUN Creatinine Glucose 55 L POC Glucose Calcium AST ALT CK-MB (CK-2) Total Protein Albumin Arterial Blood Glucose Ur Specific [place] 1.045 H Phenobarbital 11/11/20 11/11/20 11/11/20 20:34 22:06 23:43 RBC Hgb Hct RDW Lymph % (Auto) Holmes % (Auto) Lymph # (Auto) Holmes # (Auto) Seg Neutrophils % PT INR ABG pH POC ABG pCO2 POC ABG pO2 ABG pO2 ABG O2 Saturation ABG Hemoglobin ABG Sodium ABG Glucose Carboxyhemoglobin Sodium Chloride Carbon Dioxide BUN Creatinine Glucose 30 L* POC Glucose 161 H 32 L Calcium AST ALT CK-MB (CK-2) Total Protein Albumin Arterial Blood Glucose Ur Specific [place] Phenobarbital 11/12/20 11/12/20 11/12/20 03:51 08:14 08:14 RBC Hgb Hct RDW 15.9 H Lymph % (Auto) Holmes % (Auto) Lymph # (Auto) Holmes # (Auto) Seg Neutrophils % PT INR ABG pH 7.485 H POC ABG pCO2 31.2 L POC ABG pO2 ABG pO2 ABG O2 Saturation ABG Hemoglobin ABG Sodium 134.1 L ABG Glucose Carboxyhemoglobin Sodium Chloride Carbon Dioxide BUN Creatinine Glucose POC Glucose Calcium AST 45 H ALT CK-MB (CK-2) Total Protein Albumin 3.6 L Arterial Blood Glucose Ur Specific [place] Phenobarbital 11/12/20 11/12/20 11/12/20 08:47 09:45 12:21 RBC Hgb Hct RDW Lymph % (Auto) Holmes % (Auto) Lymph # (Auto) Holmes # (Auto) Seg Neutrophils % PT INR ABG pH POC ABG pCO2 POC ABG pO2 ABG pO2 ABG O2 Saturation ABG Hemoglobin ABG Sodium ABG Glucose Carboxyhemoglobin Sodium Chloride Carbon Dioxide BUN Creatinine Glucose POC Glucose 115 H 160 H Calcium AST ALT CK-MB (CK-2) Total Protein Albumin Arterial Blood Glucose Ur Specific [place] Phenobarbital 4.3 L 11/12/20 11/12/20 11/13/20 17:42 22:07 03:56 RBC Hgb Hct RDW Lymph % (Auto) Holmes % (Auto) Lymph # (Auto) Holmes # (Auto) Seg Neutrophils % PT INR ABG pH POC ABG pCO2 POC ABG pO2 124.2 H ABG pO2 ABG O2 Saturation ABG Hemoglobin ABG Sodium 134.0 L ABG Glucose 131 H Carboxyhemoglobin Sodium Chloride Carbon Dioxide BUN Creatinine Glucose POC Glucose 187 H 152 H Calcium AST ALT CK-MB (CK-2) Total Protein Albumin Arterial Blood Glucose 131 H Ur Specific [place] Phenobarbital 11/13/20 11/13/20 11/13/20 04:38 14:24 17:45 RBC Hgb Hct RDW Lymph % (Auto) Holmes % (Auto) Lymph # (Auto) Holmes # (Auto) Seg Neutrophils % PT INR ABG pH POC ABG pCO2 POC ABG pO2 ABG pO2 ABG O2 Saturation ABG Hemoglobin ABG Sodium ABG Glucose Carboxyhemoglobin Sodium 136 L Chloride Carbon Dioxide BUN 25 H Creatinine Glucose 123 H POC Glucose 108 H 114 H Calcium AST ALT CK-MB (CK-2) Total Protein Albumin Arterial Blood Glucose Ur Specific [place] Phenobarbital 11/13/20 11/14/20 11/14/20 21:14 03:29 06:40 RBC Hgb 11.7 L Hct 35.3 L D RDW 15.8 H Lymph % (Auto) Holmes % (Auto) 9.8 H Lymph # (Auto) Holmes # (Auto) 1.0 H Seg Neutrophils % PT INR ABG pH POC ABG pCO2 POC ABG pO2 124.2 H ABG pO2 ABG O2 Saturation ABG Hemoglobin 11.9 L ABG Sodium 134.0 L ABG Glucose 108 H Carboxyhemoglobin Sodium Chloride Carbon Dioxide BUN Creatinine Glucose POC Glucose 108 H Calcium AST ALT CK-MB (CK-2) Total Protein Albumin Arterial Blood Glucose 108 H Ur Specific [place] Phenobarbital 11/14/20 11/14/20 11/14/20 06:40 18:04 18:45 RBC Hgb Hct RDW Lymph % (Auto) Holmes % (Auto) Lymph # (Auto) Holmes # (Auto) Seg Neutrophils % PT INR ABG pH POC ABG pCO2 POC ABG pO2 ABG pO2 ABG O2 Saturation ABG Hemoglobin ABG Sodium ABG Glucose Carboxyhemoglobin Sodium 134 L Chloride Carbon Dioxide BUN Creatinine 0.7 L Glucose 107 H POC Glucose 119 H 116 H Calcium 8.0 L AST 96 H ALT 78 H CK-MB (CK-2) Total Protein 6.0 L Albumin 2.6 L Arterial Blood Glucose Ur Specific [place] Phenobarbital 11/14/20 11/15/20 11/15/20 21:05 04:07 05:21 RBC Hgb 11.6 L Hct 35.1 L RDW 15.7 H Lymph % (Auto) Holmes % (Auto) 12.7 H Lymph # (Auto) Holmes # (Auto) 1.3 H Seg Neutrophils % PT INR ABG pH 7.461 H POC ABG pCO2 POC ABG pO2 ABG pO2 ABG O2 Saturation ABG Hemoglobin ABG Sodium 132.6 L ABG Glucose 114 H Carboxyhemoglobin Sodium Chloride Carbon Dioxide BUN Creatinine Glucose POC Glucose 109 H Calcium AST ALT CK-MB (CK-2) Total Protein Albumin Arterial Blood Glucose 114 H Ur Specific [place] Phenobarbital 11/15/20 11/15/20 11/16/20 05:21 21:31 04:00 RBC Hgb Hct RDW Lymph % (Auto) Holmes % (Auto) Lymph # (Auto) Holmes # (Auto) Seg Neutrophils % PT INR ABG pH 7.485 H POC ABG pCO2 POC ABG pO2 108.7 H ABG pO2 ABG O2 Saturation ABG Hemoglobin 11.6 L ABG Sodium 132.6 L ABG Glucose 111 H Carboxyhemoglobin Sodium 134 L Chloride Carbon Dioxide BUN Creatinine 0.7 L Glucose 106 H POC Glucose 109 H Calcium AST 54 H ALT 58 H CK-MB (CK-2) Total Protein Albumin 2.8 L Arterial Blood Glucose 111 H Ur Specific [place] Phenobarbital 11/16/20 11/16/20 11/16/20 04:25 04:25 11:34 RBC Hgb Hct RDW 16.1 H Lymph % (Auto) Holmes % (Auto) 11.8 H Lymph # (Auto) Holmes # (Auto) 1.0 H Seg Neutrophils % PT INR ABG pH POC ABG pCO2 POC ABG pO2 ABG pO2 ABG O2 Saturation ABG Hemoglobin ABG Sodium ABG Glucose Carboxyhemoglobin Sodium 136 L Chloride Carbon Dioxide 31 H BUN Creatinine 0.6 L Glucose 111 H POC Glucose 108 H Calcium AST 45 H ALT CK-MB (CK-2) Total Protein Albumin 2.7 L Arterial Blood Glucose Ur Specific [place] Phenobarbital 11/16/20 11/16/20 11/17/20 16:06 23:27 02:20 RBC Hgb Hct RDW Lymph % (Auto) Holmes % (Auto) Lymph # (Auto) Holmes # (Auto) Seg Neutrophils % PT INR ABG pH POC ABG pCO2 POC ABG pO2 ABG pO2 ABG O2 Saturation ABG Hemoglobin ABG Sodium ABG Glucose Carboxyhemoglobin Sodium Chloride Carbon Dioxide BUN Creatinine Glucose POC Glucose 110 H 112 H 110 H Calcium AST ALT CK-MB (CK-2) Total Protein Albumin Arterial Blood Glucose Ur Specific [place] Phenobarbital 11/17/20 11/17/20 11/17/20 03:51 04:30 04:30 RBC Hgb 10.6 L Hct 31.3 L RDW 15.8 H Lymph % (Auto) Holmes % (Auto) 12.9 H Lymph # (Auto) Holmes # (Auto) 1.0 H Seg Neutrophils % PT INR ABG pH 7.495 H POC ABG pCO2 POC ABG pO2 ABG pO2 ABG O2 Saturation ABG Hemoglobin 11.0 L ABG Sodium 135.5 L ABG Glucose 110 H Carboxyhemoglobin Sodium 135 L Chloride Carbon Dioxide 31 H BUN Creatinine 0.6 L Glucose 110 H POC Glucose Calcium AST ALT CK-MB (CK-2) Total Protein 5.7 L Albumin 2.5 L Arterial Blood Glucose 110 H Ur Specific [place] Phenobarbital 11/17/20 11/18/20 11/18/20 11:40 05:44 05:44 RBC Hgb 11.6 L Hct 35.1 L RDW 16.1 H Lymph % (Auto) Holmes % (Auto) 10.4 H Lymph # (Auto) Holmes # (Auto) 1.1 H Seg Neutrophils % PT INR ABG pH 7.499 H POC ABG pCO2 POC ABG pO2 140.8 H ABG pO2 ABG O2 Saturation ABG Hemoglobin 11.8 L ABG Sodium 135.1 L ABG Glucose 110 H Carboxyhemoglobin 0.4 L Sodium 134 L Chloride 96.3 L Carbon Dioxide 31 H BUN Creatinine 0.5 L Glucose POC Glucose Calcium AST ALT CK-MB (CK-2) Total Protein Albumin 2.5 L Arterial Blood Glucose 110 H Ur Specific [place] Phenobarbital
--- NOTE | 2020-11-19 09:56 | Progress Note ---
Assessment and Plan Assessment and plan: This is a 60-year-old male with seizure disorder current alcohol and tobacco abuse presents to the hospital on 11/11 after being found unresponsive. On arrival of EMS patient was found to be hypoglycemic and given IV dextrose after which he recovered and refused further care. EMS was called again by family after the patient was found unresponsive and was given Narcan with no change. Patient was noted to have seizure activity and given 7 mg IV Ativan total including 3 from EMS. Patient was loaded with Keppra 2 g and was intubated for airway protection. Patient was found to have metabolic acidosis and hypoglycemia on BMP. Patient was found to be hypothermic and hypertensive in the emergency department. Patient's UDS was positive for barbiturates. Patient was admitted to the hospital service for further work-up with consults to [facility] and neurology. SIRS Acute hypoxic respiratory failure s/p Status epilepticus Acute encephalopathy Seizure disorder Lactic acidosis Hypoglycemia EtOH and tobacco abuse Transaminitis Hyponatremia 11/12. Patient remains intubated. On Keppra and phenobarbital. Neurology evaluation appreciated. EEG ordered. May need transfer to tertiary care for continuous EEG pending EEG results. 11/13. Remains intubated and on antiseizure medications. EEG has been performed but results are pending. Neurology on board 11/14. Remains intubated and on antiseizure medications. EEG has been performed but results are pending. Neurology on board 11/15: EEG is consistent with significant encephalopathy and does not rule out the possibility of epilepsy, patient remains on mechanical ventilation with minimal vent settings. No acute events reported overnight. 11/16: No acute events reported overnight, patient opens eyes spontaneously and withdraws to pain bilateral lower extremities. At the time my examination patient was on CMV 450/18/64/0.30 and has been started on a CPAP trial subsequently. No evidence of generalized seizures noted. Patient is a [place] of the state 11/17: Patient was extubated today per CCM, no acute events reported overnight. Patient has a right sided gaze during my examination and was on CPAP 06/08 at 30% and he opens his eyes spontaneously. He does withdraw bilateral lower extremities to pain. His Keppra was decreased yesterday. ST evaluation pending 11/18: Follow-up EEG reading. Patient currently off sedation. Nursing to place Dobbhoff tube for feeding. Speech therapy to continue swallow evaluation. No new seizure activity. Continue phenobarbital and Keppra. Seizure precautions. Transfer to [facility] today. 11/19: Dobbhoff tube with removal difficulty yesterday. 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 CT scan of the chest revealed pulmonary nodule and lesion in the liver suggestive of metastatic disease. GI consultation pending. Patient was electively intubated yesterday for airway protection. Extubation today per pulmonary The high probability of a clinically significant, sudden or life threatening deterioration of the [respiratory and neurologic] system(s) required my full and direct attention, intervention and personal management. The aggregate critical care time was [33] minutes. This time is in addition to time spent performing reported procedures but includes the following: [x] Data Review and interpretation [x] Patient assessment and monitoring of vital signs [x] Documentation [x] Medication orders and management History Interval history: No new seizure activity Hospitalist Physical - Constitutional Vitals: Temp Pulse Resp BP Pulse Ox 99.2 F 70 18 146/80 97 11/19/20 08:00 11/19/20 09:00 11/19/20 09:00 11/19/20 09:00 11/19/20 09:00 General appearance: Present: no acute distress, other (unresponsive) - EENT Eyes: Present: PERRL, EOM intact ENT: hearing intact, clear oral mucosa, dentition normal - Neck Neck: Present: supple, normal ROM - Respiratory Respiratory effort: normal Respiratory: bilateral: CTA - Cardiovascular Rhythm: regular Heart Sounds: Present: S1 & S2. Absent: gallop, rub - Extremities Extremities: no ischemia, No edema, Full ROM - Abdominal General gastrointestinal: soft, non-tender, non-distended, normal bowel sounds - Integumentary Integumentary: Present: clear, warm, dry - Neurologic Neurologic: CNII-XII intact, moves all extremities HEART Score - HEART Score Troponin: Troponin T < 0.010 ng/mL (0.00-0.029) 11/11/20 09:02 Results - Labs CBC & Chem 7: 11/18/20 05:44 11/18/20 05:44 Labs: Laboratory Last Values WBC 10.2 K/mm3 (4.5-11.0) 11/18/20 05:44 RBC 4.06 M/mm3 (3.65-5.03) 11/18/20 05:44 Hgb 11.6 gm/dl (11.8-15.2) L 11/18/20 05:44 Hct 35.1 % (35.5-45.6) L 11/18/20 05:44 MCV 86 fl (84-94) 11/18/20 05:44 MCH 29 pg (28-32) 11/18/20 05:44 MCHC 33 % (32-34) 11/18/20 05:44 RDW 16.1 % (13.2-15.2) H 11/18/20 05:44 Plt Count 228 K/mm3 (140-440) 11/18/20 05:44 Lymph % (Auto) 20.4 % (13.4-35.0) 11/18/20 05:44 [place] % (Auto) 10.4 % (0.0-7.3) H 11/18/20 05:44 Eos % (Auto) 2.5 % (0.0-4.3) 11/18/20 05:44 Baso % (Auto) 1.0 % (0.0-1.8) 11/18/20 05:44 Lymph # (Auto) 2.1 K/mm3 (1.2-5.4) 11/18/20 05:44 [place] # (Auto) 1.1 K/mm3 (0.0-0.8) H 11/18/20 05:44 Eos # (Auto) 0.3 K/mm3 (0.0-0.4) 11/18/20 05:44 Baso # (Auto) 0.1 K/mm3 (0.0-0.1) 11/18/20 05:44 Seg Neutrophils % 65.7 % (40.0-70.0) 11/18/20 05:44 Seg Neutrophils # 6.7 K/mm3 (1.8-7.7) 11/18/20 05:44 PT 11.5 Sec. (12.2-14.9) L 11/11/20 09:02 INR 0.86 (0.87-1.13) L 11/11/20 09:02 APTT 25.5 Sec. (24.2-36.6) 11/11/20 09:02 Thrombin Time 17.0 Sec. (15.1-19.6) 11/11/20 09:02 ABG pH 7.499 (7.320-7.450) H 11/17/20 11:40 POC ABG pCO2 36.3 mmHg (32.0-48.0) 11/17/20 11:40 ABG pCO2 33.9 mm Hg 11/11/20 10:45 POC ABG pO2 140.8 mmHg (83-108) H 11/17/20 11:40 ABG pO2 222.2 mm Hg (80.0-90.0) H 11/11/20 10:45 POC ABG HCO3 27.6 11/17/20 11:40 ABG HCO3 24.9 mmol/L (20.0-26.0) 11/11/20 10:45 ABG O2 Saturation 98.1 (0-100) 11/17/20 11:40 ABG O2 Content 19.4 (0.0-44) 11/11/20 10:45 POC ABG Base Excess 4.4 11/17/20 11:40 ABG Base Excess 1.9 mmol/L (-2.0-3.0) 11/11/20 10:45 ABG Hemoglobin 11.8 (12.0-17.5) L 11/17/20 11:40 ABG Oxyhemoglobin 97.4 (94-98) 11/17/20 11:40 ABG Carboxyhemoglobin 0.6 % (0.0-5.0) 11/11/20 10:45 ABG Methemoglobin 0.3 (0.0-1.5) 11/17/20 11:40 ABG Sodium 135.1 mmol/L (136.0-145.0) L 11/17/20 11:40 ABG Potassium 4.2 mmol/L (3.40-4.50) 11/17/20 11:40 ABG Chloride 102.0 mmol/L (98-107) 11/17/20 11:40 ABG Glucose 110 mg/dL (65-95) H 11/17/20 11:40 Oxyhemoglobin 98.5 % (95.0-99.0) 11/11/20 10:45 Carboxyhemoglobin 0.4 (0.5-1.5) L 11/17/20 11:40 FiO2 21 % 03/11/21 10:45 FiO2 % 30 11/17/20 11:40 Sodium 134 mmol/L (137-145) L 11/18/20 05:44 Potassium 4.3 mmol/L (3.6-5.0) 11/18/20 05:44 Chloride 96.3 mmol/L (98-107) L 11/18/20 05:44 Carbon Dioxide 31 mmol/L (22-30) H 11/18/20 05:44 Anion Gap 11 mmol/L 11/18/20 05:44 BUN 13 mg/dL (9-20) 11/18/20 05:44 Creatinine 0.5 mg/dL (0.8-1.3) L 11/18/20 05:44 Estimated GFR > 60 ml/min 11/18/20 05:44 BUN/Creatinine Ratio 26 % 11/18/20 05:44 Glucose 99 mg/dL (75-100) 11/18/20 05:44 POC Glucose 100 mg/dL (70-105) 11/19/20 05:03 Hemoglobin A1c 5.4 % (4-6) 11/12/20 07:26 Calcium 8.8 mg/dL (8.4-10.2) 11/18/20 05:44 Magnesium 2.00 mg/dL (1.7-2.3) 11/11/20 09:02 Total Bilirubin 0.40 mg/dL (0.1-1.2) 11/18/20 05:44 AST 36 units/L (5-40) 11/18/20 05:44 ALT 32 units/L (7-56) 11/18/20 05:44 Alkaline Phosphatase 80 units/L (35-129) 11/18/20 05:44 Ammonia 29.0 umol/L (25-60) 11/12/20 08:47 Total Creatine Kinase 169 units/L (55-170) 11/11/20 09:02 CK-MB (CK-2) 6.6 ng/mL (0.0-4.0) H 11/11/20 09:02 CK-MB (CK-2) Rel Index 3.9 (0-4) 11/11/20 09:02 Troponin T < 0.010 ng/mL (0.00-0.029) 11/11/20 09:02 Total Protein 6.3 g/dL (6.3-8.2) 11/18/20 05:44 Albumin 2.5 g/dL (3.9-5) L 11/18/20 05:44 Albumin/Globulin Ratio 0.7 % 11/18/20 05:44 Arterial Blood Glucose 110 mg/dL (65-95) H 11/17/20 11:40 Arterial Blood Ionized Calcium 4.9 mg/dL (4.6-5.3) 11/17/20 11:40 Urine Color Yellow (Yellow) 11/11/20 20: Urine Turbidity Clear (Clear) 11/11/20 20: Urine pH 6.0 (5.0-7.0) 11/11/20 20: Ur Specific [place] 1.045 (1.003-1.030) H 11/11/20 20:27 Urine Protein 100 mg/dl mg/dL (Negative) 11/11/20 20: Urine Glucose (UA) Neg mg/dL (Negative) 11/11/20 20: Urine Ketones Neg mg/dL (Negative) 11/11/20 20: Urine Blood Sm (Negative) 11/11/20 20: Urine Nitrite Neg (Negative) 11/11/20 20: Urine Bilirubin Neg (Negative) 11/11/20 20: Urine Urobilinogen 4.0 mg/dL (<2.0) 11/11/20 20:27 Ur Leukocyte Esterase Neg (Negative) 11/11/20 20: Urine WBC (Auto) 1.0 /HPF (0.0-6.0) 11/11/20 20: Urine RBC (Auto) 4.0 /HPF (0.0-6.0) 11/11/20 20: U Epithel Cells (Auto) 12.0 /HPF (0-13.0) 11/11/20 20: Urine Bacteria (Auto) 1+ /HPF (Negative) 11/11/20 20: Urine Mucus Few /HPF 11/11/20 20:27 Urine Opiates Screen Negative 11/11/20 20: Urine Methadone Screen Negative 11/11/20 20:27 Ur Barbiturates Screen Positive 11/11/20 20: Ur Phencyclidine Scrn Negative 11/11/20 20:27 Ur Amphetamines Screen Negative 11/11/20 20:27 Phenobarbital 4.3 ug/mL (15.0-40.0) L 11/12/20 08:47 U Benzodiazepines Scrn Negative 11/11/20 20:27 Urine Cocaine Screen Negative 11/11/20 20:27 U Marijuana (THC) Screen Negative 11/11/20 20:27 Drugs of Abuse Note Disclamer 11/11/20 20:27 Plasma/Serum Alcohol < 0.01 % (0-0.07) 11/11/20 09:02 Coronavirus (PCR) Negative (Negative) 11/12/20 08:00 [place]/IV: Voiding Method Indwelling Catheter Active Medications - Current Medications Current Medications: Generic Name Dose Route Start Last Admin Trade Name Freq PRN Reason Stop Dose Admin Acetaminophen 650 mg 11/11/20 22:58 Acetaminophen 325 Mg Tab PO Q4H PRN Pain MILD(1-3)/Fever >100.5/BAR Albuterol 2.5 mg 11/11/20 23:18 Albuterol 2.5 Mg/3 Ml Nebu IH Q3HRT PRN Wheezing Lipase/Protease/Amylase 1 each 11/12/20 12:00 Lipase 10,500/Protease 25,000/Amylase 43,750 (Units) Dr Rangel FEEDTUBE PRN PRN For Clogged Feeding Tube Dextrose 50 ml 11/11/20 22:11 11/17/20 23:29 Dextrose 50% In Water (25gm) 50 Ml Syringe IV 10 ml ONCE PRN Administration Hypoglycemia Protocol Enoxaparin Sodium 40 mg 11/12/20 22:00 11/18/20 22:07 Enoxaparin 40 Mg/0.4 Ml Inj SUB-Q 40 mg QDAY@2200 KIRK Administration Protocol Famotidine 20 mg 11/19/20 10:00 11/19/20 09:05 Famotidine 20 Mg/2 Ml Inj IV 20 mg BID KIRK Administration Folic Acid 1 mg 11/16/20 10:00 11/18/20 12:16 Folic Acid 1 Mg Tab PO Not Given DAILY KIRK Hydralazine HCl 10 mg 11/12/20 10:30 11/14/20 07:30 Hydralazine 20 Mg/1 Ml Inj IV 10 mg Q4H PRN Administration Hypertension Hydrophilic Ointment 1 applic 11/11/20 09:14 Lip Therapy Vaseline TP Q2HR PRN Dry Lips Levetiracetam 1,000 mg/ 110 mls @ 400 mls/hr 11/18/20 22:00 11/18/20 22:11 Dextrose IV 400 mls/hr Q12HR KIRK Administration Dextrose 1,000 mls @ 75 mls/hr 11/18/20 16:00 11/19/20 01:49 D5w IV 75 mls/hr DIRECT KIRK Administration Propofol 1,000 mg in 100 mls @ 2.1 mls/hr 11/18/20 16:00 11/19/20 08:28 Diprivan 10 Mg/Ml IV 10 mcg/kg/min TITR KIRK 4.2 mls/hr Administration Protocol 5 MCG/KG/MIN Insulin Human Regular 0 units 11/12/20 18:00 11/19/20 06:34 Insulin Regular, Human 100 Units/1 Ml SUB-Q Not Given Q6H KIRK Protocol Metoclopramide HCl 10 mg 11/11/20 22:58 Metoclopramide 10 Mg/2 Ml Inj IV Q6H PRN Nausea And Vomiting Multi-Ingred Cream/Lotion/Oil/Oint 1 applic 11/11/20 09:14 Mineral Oil/Petrolatum, White Ophth Oint 3.5 Gm OU Q4HR PRN Dry Eye(s) Multivitamins 1 each 11/13/20 00:00 11/19/20 06:38 Multivitamins ,Therapeutic Tab PO Not Given Q24H KIRK Naloxone HCl 2 mg 11/11/20 08:33 Naloxone 0.4 Mg/1 Ml Inj IV Q2MIN PRN Res Rate </= 8 or 02 SAT < 92% Ondansetron HCl 4 mg 11/11/20 22:58 Ondansetron 4 Mg/2 Ml Inj IV Q3H PRN Nausea And Vomiting Phenobarbital 15 mg 11/11/20 23:45 11/18/20 22:08 Phenobarbital 15 Mg Tab PO Not Given BID KIRK Simple Syrup 15 ml 11/12/20 12:00 Simple Syrup 15 Ml FEEDTUBE PRN PRN Hypoglycemia Simple Syrup 30 ml 11/12/20 12:00 Simple Syrup 15 Ml FEEDTUBE PRN PRN Hypoglycemia Sodium Bicarbonate 325 mg 11/12/20 12:00 Sodium Bicarbonate 325 Mg Tab FEEDTUBE PRN PRN For Clogged Feeding Tube Sodium Chloride 10 ml 11/11/20 23:00 11/18/20 09:27 Sodium Chloride 0.9% 10 Ml Flush Syringe IV 10 ml BID KIRK Administration Sodium Chloride 10 ml 11/11/20 22:58 Sodium Chloride 0.9% 10 Ml Flush Syringe IV PRN PRN LINE FLUSH Thiamine HCl 100 mg 11/16/20 10:00 11/18/20 09:26 Thiamine 100 Mg Tab PO Not Given QDAY KIRK Nutrition/Malnutrition Assess - Dietary Evaluation Nutrition/Malnutrition Findings: Nutrition Notes Start: 11/12/20 08:26 Freq: Status: Active Protocol: Document 11/18/20 09:50 AL (Rec: 11/18/20 09:59 AL [id number]) Co-Sign 11/18/20 09:50 LP Nutrition Notes Initial or Follow up Reassessment Current Diagnosis Respiratory Failure,Stroke Other Pertinent Diagnosis Seizures Current Diet Vital AF 1.2 at 60 ml/h Labs/Tests Na 134 Cr .5 Pertinent Medications D5 NS at 75 ml/hr Height 5 ft 9 in Weight 70 kg [place] Body Weight (kg) 72.72 BMI 22.8 Weight Status Appropriate Subjective/Other Information F/U for TF tolerance. Pt. was extubated on 11/17. Per RN, feeding tube was removed and P[employer] DIST[employer]OR is supposed to come and conduct swallow eval. If pt fails swallow eval, TF most likely to continue. Percent of energy/protein needs met: 0%/0% Burn Absent Trauma Absent GI Symptoms None Current % PO Negligible Minimum of two criteria No physical signs of malnutrition #1 Nutrition Diagnosis Inadequate oral intake Diagnosis Progress(for reassessment Continues documentation) Is patient on ventilator? No Is Patient Ambulatory and/or Out of Bed No REE-([facility]-confined to bed) 4816.797 Calculation Used for Recommendations [facility] Additional Notes Protein: 70-84 g (1.0-1.2 g/kg ABW) Fluid: 1 ml/kcal Nutrition Intervention Change Diet Order: Change TF Nutrition Support: Jevity 1.2 at 60 ml/hr Flush 100 mL Kcal 1,728 Protein (gm) 80 Fluid (mL) 1,162 Goal #1 Diet advancement Goal #2 Meet 75% of estimated energy and protein needs via PO or TF Anticipated Discharge Needs: Unable to determine at the time Follow-Up By: 11/19/20 Additional Comments F/U for [employer] swallow eval/diet advancement or TF change/ tolerance.
[2020-11-19] MEDS: FOLIC ACID 1 MG TAB PO SCH (11:34)
[2020-11-19] MEDS: THIAMINE 100 MG TAB PO SCH (11:34)
[2020-11-19] MEDS: PHENobarbital 15 MG TAB PO SCH (11:34)
[2020-11-19] MEDS: levETIRAcetam 1,000 MG in DEXTROSE 5% IN WATER 100 ML IV SCH ×2 (11:36→23:13)
[2020-11-19] MEDS: ENOXAPARIN 40 MG/0.4 ML INJ SUB-Q SCH (23:12)
[2020-11-20] MEDS: INSULIN REGULAR, HUMAN 100 UNITS/1 ML SUB-Q SCH ×3 (00:14→17:50)
[2020-11-20] MEDS: MULTIVITAMINS ,THERAPEUTIC TAB PO SCH (00:15)
[2020-11-20] MEDS: PHENobarbital 15 MG TAB PO SCH ×3 (00:15→22:51)
--- NOTE | 2020-11-20 09:01 | Progress Note ---
Subjective Interval history: no change Objective Vital Signs - 12hr 11/19/20 11/19/20 11/20/20 21:13 22:49 00:00 Temperature 97.7 F Pulse Rate 65 Pulse Rate [ 66 From Monitor] Respiratory 20 14 Rate Blood Pressure 153/82 O2 Sat by Pulse 98 98 96 Oximetry 11/20/20 06:24 Temperature 97.7 F Pulse Rate 63 Pulse Rate [ From Monitor] Respiratory 20 Rate Blood Pressure 147/69 O2 Sat by Pulse 96 Oximetry Constitutional: no acute distress, comatose ENT: oropharynx moist Effort: normal Ascultation: Bilateral: clear Gastrointestinal: hypoactive bowel sounds Neurologic: non-focal exam, unable to assess CBC and BMP: 11/18/20 05:44 11/18/20 05:44 ABG, PT/INR, D-dimer: ABG ABG pH 7.499 (7.320-7.450) H 11/17/20 11:40 POC ABG pCO2 36.3 mmHg (32.0-48.0) 11/17/20 11:40 ABG pCO2 33.9 mm Hg 11/11/20 10:45 POC ABG pO2 140.8 mmHg (83-108) H 11/17/20 11:40 ABG pO2 222.2 mm Hg (80.0-90.0) H 11/11/20 10:45 POC ABG HCO3 27.6 11/17/20 11:40 ABG O2 Saturation 98.1 (0-100) 11/17/20 11:40 PT/INR, D-dimer PT 11.5 Sec. (12.2-14.9) L 11/11/20 09:02 INR 0.86 (0.87-1.13) L 11/11/20 09:02 Abnormal lab findings: Abnormal Labs 11/11/20 11/11/20 11/11/20 09:02 09:02 09:02 RBC 5.16 H Hgb Hct RDW 16.1 H Lymph % (Auto) 12.2 L [place] % (Auto) Lymph # (Auto) 1.1 L [place] # (Auto) Seg Neutrophils % 80.5 H PT 11.5 L INR 0.86 L ABG pH POC ABG pCO2 POC ABG pO2 ABG pO2 ABG O2 Saturation ABG Hemoglobin ABG Sodium ABG Glucose Carboxyhemoglobin Sodium Chloride Carbon Dioxide BUN Creatinine Glucose POC Glucose Calcium AST ALT CK-MB (CK-2) 6.6 H Total Protein Albumin Arterial Blood Glucose Ur Specific [place] Phenobarbital 11/11/20 11/11/20 11/11/20 09:02 10:45 20:27 RBC Hgb Hct RDW Lymph % (Auto) [place] % (Auto) Lymph # (Auto) [place] # (Auto) Seg Neutrophils % PT INR ABG pH 7.483 H POC ABG pCO2 POC ABG pO2 ABG pO2 222.2 H ABG O2 Saturation 99.3 H ABG Hemoglobin 13.7 L ABG Sodium ABG Glucose Carboxyhemoglobin Sodium Chloride Carbon Dioxide 20 L BUN Creatinine Glucose 55 L POC Glucose Calcium AST ALT CK-MB (CK-2) Total Protein Albumin Arterial Blood Glucose Ur Specific [place] 1.045 H Phenobarbital 11/11/20 11/11/20 11/11/20 20:34 22:06 23:43 RBC Hgb Hct RDW Lymph % (Auto) [place] % (Auto) Lymph # (Auto) [place] # (Auto) Seg Neutrophils % PT INR ABG pH POC ABG pCO2 POC ABG pO2 ABG pO2 ABG O2 Saturation ABG Hemoglobin ABG Sodium ABG Glucose Carboxyhemoglobin Sodium Chloride Carbon Dioxide BUN Creatinine Glucose 30 L* POC Glucose 161 H 32 L Calcium AST ALT CK-MB (CK-2) Total Protein Albumin Arterial Blood Glucose Ur Specific [place] Phenobarbital 11/12/20 11/12/20 11/12/20 03:51 08:14 08:14 RBC Hgb Hct RDW 15.9 H Lymph % (Auto) [place] % (Auto) Lymph # (Auto) [place] # (Auto) Seg Neutrophils % PT INR ABG pH 7.485 H POC ABG pCO2 31.2 L POC ABG pO2 ABG pO2 ABG O2 Saturation ABG Hemoglobin ABG Sodium 134.1 L ABG Glucose Carboxyhemoglobin Sodium Chloride Carbon Dioxide BUN Creatinine Glucose POC Glucose Calcium AST 45 H ALT CK-MB (CK-2) Total Protein Albumin 3.6 L Arterial Blood Glucose Ur Specific [place] Phenobarbital 11/12/20 11/12/20 11/12/20 08:47 09:45 12:21 RBC Hgb Hct RDW Lymph % (Auto) [place] % (Auto) Lymph # (Auto) [place] # (Auto) Seg Neutrophils % PT INR ABG pH POC ABG pCO2 POC ABG pO2 ABG pO2 ABG O2 Saturation ABG Hemoglobin ABG Sodium ABG Glucose Carboxyhemoglobin Sodium Chloride Carbon Dioxide BUN Creatinine Glucose POC Glucose 115 H 160 H Calcium AST ALT CK-MB (CK-2) Total Protein Albumin Arterial Blood Glucose Ur Specific [place] Phenobarbital 4.3 L 11/12/20 11/12/20 11/13/20 17:42 22:07 03:56 RBC Hgb Hct RDW Lymph % (Auto) [place] % (Auto) Lymph # (Auto) [place] # (Auto) Seg Neutrophils % PT INR ABG pH POC ABG pCO2 POC ABG pO2 124.2 H ABG pO2 ABG O2 Saturation ABG Hemoglobin ABG Sodium 134.0 L ABG Glucose 131 H Carboxyhemoglobin Sodium Chloride Carbon Dioxide BUN Creatinine Glucose POC Glucose 187 H 152 H Calcium AST ALT CK-MB (CK-2) Total Protein Albumin Arterial Blood Glucose 131 H Ur Specific [place] Phenobarbital 11/13/20 11/13/20 11/13/20 04:38 14:24 17:45 RBC Hgb Hct RDW Lymph % (Auto) [place] % (Auto) Lymph # (Auto) [place] # (Auto) Seg Neutrophils % PT INR ABG pH POC ABG pCO2 POC ABG pO2 ABG pO2 ABG O2 Saturation ABG Hemoglobin ABG Sodium ABG Glucose Carboxyhemoglobin Sodium 136 L Chloride Carbon Dioxide BUN 25 H Creatinine Glucose 123 H POC Glucose 108 H 114 H Calcium AST ALT CK-MB (CK-2) Total Protein Albumin Arterial Blood Glucose Ur Specific [place] Phenobarbital 11/13/20 11/14/20 11/14/20 21:14 03:29 06:40 RBC Hgb 11.7 L Hct 35.3 L D RDW 15.8 H Lymph % (Auto) [place] % (Auto) 9.8 H Lymph # (Auto) [place] # (Auto) 1.0 H Seg Neutrophils % PT INR ABG pH POC ABG pCO2 POC ABG pO2 124.2 H ABG pO2 ABG O2 Saturation ABG Hemoglobin 11.9 L ABG Sodium 134.0 L ABG Glucose 108 H Carboxyhemoglobin Sodium Chloride Carbon Dioxide BUN Creatinine Glucose POC Glucose 108 H Calcium AST ALT CK-MB (CK-2) Total Protein Albumin Arterial Blood Glucose 108 H Ur Specific [place] Phenobarbital 11/14/20 11/14/20 11/14/20 06:40 18:04 18:45 RBC Hgb Hct RDW Lymph % (Auto) [place] % (Auto) Lymph # (Auto) [place] # (Auto) Seg Neutrophils % PT INR ABG pH POC ABG pCO2 POC ABG pO2 ABG pO2 ABG O2 Saturation ABG Hemoglobin ABG Sodium ABG Glucose Carboxyhemoglobin Sodium 134 L Chloride Carbon Dioxide BUN Creatinine 0.7 L Glucose 107 H POC Glucose 119 H 116 H Calcium 8.0 L AST 96 H ALT 78 H CK-MB (CK-2) Total Protein 6.0 L Albumin 2.6 L Arterial Blood Glucose Ur Specific [place] Phenobarbital 11/14/20 11/15/20 11/15/20 21:05 04:07 05:21 RBC Hgb 11.6 L Hct 35.1 L RDW 15.7 H Lymph % (Auto) [place] % (Auto) 12.7 H Lymph # (Auto) [place] # (Auto) 1.3 H Seg Neutrophils % PT INR ABG pH 7.461 H POC ABG pCO2 POC ABG pO2 ABG pO2 ABG O2 Saturation ABG Hemoglobin ABG Sodium 132.6 L ABG Glucose 114 H Carboxyhemoglobin Sodium Chloride Carbon Dioxide BUN Creatinine Glucose POC Glucose 109 H Calcium AST ALT CK-MB (CK-2) Total Protein Albumin Arterial Blood Glucose 114 H Ur Specific [place] Phenobarbital 11/15/20 11/15/20 11/16/20 05:21 21:31 04:00 RBC Hgb Hct RDW Lymph % (Auto) [place] % (Auto) Lymph # (Auto) [place] # (Auto) Seg Neutrophils % PT INR ABG pH 7.485 H POC ABG pCO2 POC ABG pO2 108.7 H ABG pO2 ABG O2 Saturation ABG Hemoglobin 11.6 L ABG Sodium 132.6 L ABG Glucose 111 H Carboxyhemoglobin Sodium 134 L Chloride Carbon Dioxide BUN Creatinine 0.7 L Glucose 106 H POC Glucose 109 H Calcium AST 54 H ALT 58 H CK-MB (CK-2) Total Protein Albumin 2.8 L Arterial Blood Glucose 111 H Ur Specific [place] Phenobarbital 11/16/20 11/16/20 11/16/20 04:25 04:25 11:34 RBC Hgb Hct RDW 16.1 H Lymph % (Auto) [place] % (Auto) 11.8 H Lymph # (Auto) [place] # (Auto) 1.0 H Seg Neutrophils % PT INR ABG pH POC ABG pCO2 POC ABG pO2 ABG pO2 ABG O2 Saturation ABG Hemoglobin ABG Sodium ABG Glucose Carboxyhemoglobin Sodium 136 L Chloride Carbon Dioxide 31 H BUN Creatinine 0.6 L Glucose 111 H POC Glucose 108 H Calcium AST 45 H ALT CK-MB (CK-2) Total Protein Albumin 2.7 L Arterial Blood Glucose Ur Specific [place] Phenobarbital 11/16/20 11/16/20 11/17/20 16:06 23:27 02:20 RBC Hgb Hct RDW Lymph % (Auto) [place] % (Auto) Lymph # (Auto) [place] # (Auto) Seg Neutrophils % PT INR ABG pH POC ABG pCO2 POC ABG pO2 ABG pO2 ABG O2 Saturation ABG Hemoglobin ABG Sodium ABG Glucose Carboxyhemoglobin Sodium Chloride Carbon Dioxide BUN Creatinine Glucose POC Glucose 110 H 112 H 110 H Calcium AST ALT CK-MB (CK-2) Total Protein Albumin Arterial Blood Glucose Ur Specific [place] Phenobarbital 11/17/20 11/17/20 11/17/20 03:51 04:30 04:30 RBC Hgb 10.6 L Hct 31.3 L RDW 15.8 H Lymph % (Auto) [place] % (Auto) 12.9 H Lymph # (Auto) [place] # (Auto) 1.0 H Seg Neutrophils % PT INR ABG pH 7.495 H POC ABG pCO2 POC ABG pO2 ABG pO2 ABG O2 Saturation ABG Hemoglobin 11.0 L ABG Sodium 135.5 L ABG Glucose 110 H Carboxyhemoglobin Sodium 135 L Chloride Carbon Dioxide 31 H BUN Creatinine 0.6 L Glucose 110 H POC Glucose Calcium AST ALT CK-MB (CK-2) Total Protein 5.7 L Albumin 2.5 L Arterial Blood Glucose 110 H Ur Specific [place] Phenobarbital 11/17/20 11/18/20 11/18/20 11:40 05:44 05:44 RBC Hgb 11.6 L Hct 35.1 L RDW 16.1 H Lymph % (Auto) [place] % (Auto) 10.4 H Lymph # (Auto) [place] # (Auto) 1.1 H Seg Neutrophils % PT INR ABG pH 7.499 H POC ABG pCO2 POC ABG pO2 140.8 H ABG pO2 ABG O2 Saturation ABG Hemoglobin 11.8 L ABG Sodium 135.1 L ABG Glucose 110 H Carboxyhemoglobin 0.4 L Sodium 134 L Chloride 96.3 L Carbon Dioxide 31 H BUN Creatinine 0.5 L Glucose POC Glucose Calcium AST ALT CK-MB (CK-2) Total Protein Albumin 2.5 L Arterial Blood Glucose 110 H Ur Specific [place] Phenobarbital 11/19/20 11:10 RBC Hgb Hct RDW Lymph % (Auto) [place] % (Auto) Lymph # (Auto) [place] # (Auto) Seg Neutrophils % PT INR ABG pH POC ABG pCO2 POC ABG pO2 ABG pO2 ABG O2 Saturation ABG Hemoglobin ABG Sodium ABG Glucose Carboxyhemoglobin Sodium Chloride Carbon Dioxide BUN Creatinine Glucose POC Glucose 116 H Calcium AST ALT CK-MB (CK-2) Total Protein Albumin Arterial Blood Glucose Ur Specific [place] Phenobarbital
[2020-11-20] MEDS: FOLIC ACID 1 MG TAB PO SCH (09:30)
[2020-11-20] MEDS: THIAMINE 100 MG TAB PO SCH (09:30)
[2020-11-20] MEDS: FAMOTIDINE 20 MG/2 ML INJ IV SCH ×2 (09:41→22:00)
[2020-11-20] MEDS: levETIRAcetam 1,000 MG in DEXTROSE 5% IN WATER 100 ML IV SCH ×2 (09:41→22:00)
--- NOTE | 2020-11-20 10:34 | Progress Note ---
Assessment and Plan Assessment and plan: This is a 60-year-old male with seizure disorder current alcohol and tobacco abuse presents to the hospital on 11/11 after being found unresponsive. On arrival of EMS patient was found to be hypoglycemic and given IV dextrose after which he recovered and refused further care. EMS was called again by family after the patient was found unresponsive and was given Narcan with no change. Patient was noted to have seizure activity and given 7 mg IV Ativan total including 3 from EMS. Patient was loaded with Keppra 2 g and was intubated for airway protection. Patient was found to have metabolic acidosis and hypoglycemia on BMP. Patient was found to be hypothermic and hypertensive in the emergency department. Patient's UDS was positive for barbiturates. Patient was admitted to the hospital service for further work-up with consults to [facility] and neurology. Probable metastatic CA SIRS Acute hypoxic respiratory failure s/p Status epilepticus Acute encephalopathy Seizure disorder Lactic acidosis Hypoglycemia EtOH and tobacco abuse Transaminitis Hyponatremia 11/12. Patient remains intubated. On Keppra and phenobarbital. Neurology evaluation appreciated. EEG ordered. May need transfer to tertiary care for continuous EEG pending EEG results. 11/13. Remains intubated and on antiseizure medications. EEG has been performed but results are pending. Neurology on board 11/14. Remains intubated and on antiseizure medications. EEG has been performed but results are pending. Neurology on board 11/15: EEG is consistent with significant encephalopathy and does not rule out the possibility of epilepsy, patient remains on mechanical ventilation with minimal vent settings. No acute events reported overnight. 11/16: No acute events reported overnight, patient opens eyes spontaneously and w ithdraws to pain bilateral lower extremities. At the time my examination patient was on CMV 450/18/64/0.30 and has been started on a CPAP trial subsequently. No evidence of generalized seizures noted. Patient is a lui of the state 11/17: Patient was extubated today per CCM, no acute events reported overnight. Patient has a right sided gaze during my examination and was on CPAP / at 30% and he opens his eyes spontaneously. He does withdraw bilateral lower extremities to pain. His Keppra was decreased yesterday. ST evaluation pending 11/18: Follow-up EEG reading. Patient currently off sedation. Nursing to place Dobbhoff tube for feeding. Speech therapy to continue swallow evaluation. No new seizure activity. Continue phenobarbital and Keppra. Seizure precautions. Transfer [facility] today. 11/19: Dobbhoff tube with removal difficulty yesterday. 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 CT scan of the chest revealed pulmonary nodule and lesion in the liver suggestive of metastatic disease. GI consultation pending. Patient was electively intubated yesterday for airway protection. Extubation today per pulmonary 11/20: Await speech therapy evaluation. Patient will likely need PEG tube placem ent. Consult GI for further evaluation. Oncology consultation for likely metastatic disease. History Interval history: No new seizure activity Hospitalist Physical - Constitutional Vitals: Temp Pulse Resp BP Pulse Ox 97.7 F 63 20 147/69 96 11/20/20 06:24 11/20/20 06:24 11/20/20 06:24 11/20/20 06:24 11/20/20 06:24 General appearance: Present: no acute distress, other (unresponsive) - EENT Eyes: Present: PERRL, EOM intact ENT: hearing intact, clear oral mucosa, dentition normal - Neck Neck: Present: supple, normal ROM - Respiratory Respiratory effort: normal Respiratory: bilateral: CTA - Cardiovascular Rhythm: regular Heart Sounds: Present: S1 & S2. Absent: gallop, rub - Extremities Extremities: no ischemia, No edema, Full ROM - Abdominal General gastrointestinal: soft, non-tender, non-distended, normal bowel sounds - Integumentary Integumentary: Present: clear, warm, dry - Neurologic Neurologic: CNII-XII intact, moves all extremities HEART Score - HEART Score Troponin: Troponin T < 0.010 ng/mL (0.00-0.029) 11/11/20 09:02 Results - Labs CBC & Chem 7: 11/18/20 05:44 11/18/20 05:44 Labs: Laboratory Last Values WBC 10.2 K/mm3 (4.5-11.0) 11/18/20 05:44 RBC 4.06 M/mm3 (3.65-5.03) 11/18/20 05:44 Hgb 11.6 gm/dl (11.8-15.2) L 11/18/20 05:44 Hct 35.1 % (35.5-45.6) L 11/18/20 05:44 MCV 86 fl (84-94) 11/18/20 05:44 MCH 29 pg (28-32) 11/18/20 05:44 MCHC 33 % (32-34) 11/18/20 05:44 RDW 16.1 % (13.2-15.2) H 11/18/20 05:44 Plt Count 228 K/mm3 (140-440) 11/18/20 05:44 Lymph % (Auto) 20.4 % (13.4-35.0) 11/18/20 05:44 [place] % (Auto) 10.4 % (0.0-7.3) H 11/18/20 05:44 Eos % (Auto) 2.5 % (0.0-4.3) 11/18/20 05:44 Baso % (Auto) 1.0 % (0.0-1.8) 11/18/20 05:44 Lymph # (Auto) 2.1 K/mm3 (1.2-5.4) 11/18/20 05:44 [place] # (Auto) 1.1 K/mm3 (0.0-0.8) H 11/18/20 05:44 Eos # (Auto) 0.3 K/mm3 (0.0-0.4) 11/18/20 05:44 Baso # (Auto) 0.1 K/mm3 (0.0-0.1) 11/18/20 05:44 Seg Neutrophils % 65.7 % (40.0-70.0) 11/18/20 05:44 Seg Neutrophils # 6.7 K/mm3 (1.8-7.7) 11/18/20 05:44 PT 11.5 Sec. (12.2-14.9) L 11/11/20 09:02 INR 0.86 (0.87-1.13) L 11/11/20 09:02 APTT 25.5 Sec. (24.2-36.6) 11/11/20 09:02 Thrombin Time 17.0 Sec. (15.1-19.6) 11/11/20 09:02 ABG pH 7.499 (7.320-7.450) H 11/17/20 11:40 POC ABG pCO2 36.3 mmHg (32.0-48.0) 11/17/20 11:40 ABG pCO2 33.9 mm Hg 11/11/20 10:45 POC ABG pO2 140.8 mmHg (83-108) H 11/17/20 11:40 ABG pO2 222.2 mm Hg (80.0-90.0) H 11/11/20 10:45 POC ABG HCO3 27.6 11/17/20 11:40 ABG HCO3 24.9 mmol/L (20.0-26.0) 11/11/20 10:45 ABG O2 Saturation 98.1 (0-100) 11/17/20 11:40 ABG O2 Content 19.4 (0.0-44) 11/11/20 10:45 POC ABG Base Excess 4.4 11/17/20 11:40 ABG Base Excess 1.9 mmol/L (-2.0-3.0) 11/11/20 10:45 ABG Hemoglobin 11.8 (12.0-17.5) L 11/17/20 11:40 ABG Oxyhemoglobin 97.4 (94-98) 11/17/20 11:40 ABG Carboxyhemoglobin 0.6 % (0.0-5.0) 11/11/20 10:45 ABG Methemoglobin 0.3 (0.0-1.5) 11/17/20 11:40 ABG Sodium 135.1 mmol/L (136.0-145.0) L 11/17/20 11:40 ABG Potassium 4.2 mmol/L (3.40-4.50) 11/17/20 11:40 ABG Chloride 102.0 mmol/L (98-107) 11/17/20 11:40 ABG Glucose 110 mg/dL (65-95) H 11/17/20 11:40 Oxyhemoglobin 98.5 % (95.0-99.0) 11/11/20 10:45 Carboxyhemoglobin 0.4 (0.5-1.5) L 11/17/20 11:40 FiO2 21 % 11/11/20 10:45 FiO2 % 30 11/17/20 11:40 Sodium 134 mmol/L (137-145) L 11/18/20 05:44 Potassium 4.3 mmol/L (3.6-5.0) 11/18/20 05:44 Chloride 96.3 mmol/L (98-107) L 11/18/20 05:44 Carbon Dioxide 31 mmol/L (22-30) H 11/18/20 05:44 Anion Gap 11 mmol/L 11/18/20 05:44 BUN 13 mg/dL (9-20) 11/18/20 05:44 Creatinine 0.5 mg/dL (0.8-1.3) L 11/18/20 05:44 Estimated GFR > 60 ml/min 11/18/20 05:44 BUN/Creatinine Ratio 26 % 11/18/20 05:44 Glucose 99 mg/dL (75-100) 11/18/20 05:44 POC Glucose 92 mg/dL (70-105) 11/19/20 22:07 Hemoglobin A1c 5.4 % (4-6) 11/12/20 07:26 Calcium 8.8 mg/dL (8.4-10.2) 11/18/20 05:44 Magnesium 2.00 mg/dL (1.7-2.3) 11/11/20 09:02 Total Bilirubin 0.40 mg/dL (0.1-1.2) 11/18/20 05:44 AST 36 units/L (5-40) 11/18/20 05:44 ALT 32 units/L (7-56) 11/18/20 05:44 Alkaline Phosphatase 80 units/L (35-129) 11/18/20 05:44 Ammonia 29.0 umol/L (25-60) 11/12/20 08:47 Total Creatine Kinase 169 units/L (55-170) 11/11/20 09:02 CK-MB (CK-2) 6.6 ng/mL (0.0-4.0) H 11/11/20 09:02 CK-MB (CK-2) Rel Index 3.9 (0-4) 11/11/20 09:02 Troponin T < 0.010 ng/mL (0.00-0.029) 11/11/20 09:02 Total Protein 6.3 g/dL (6.3-8.2) 11/18/20 05:44 Albumin 2.5 g/dL (3.9-5) L 11/18/20 05:44 Albumin/Globulin Ratio 0.7 % 11/18/20 05:44 Arterial Blood Glucose 110 mg/dL (65-95) H 11/17/20 11:40 Arterial Blood Ionized Calcium 4.9 mg/dL (4.6-5.3) 11/17/20 11:40 Urine Color Yellow (Yellow) 11/11/20 20:27 Urine Turbidity Clear (Clear) 11/11/20 20: Urine pH 6.0 (5.0-7.0) 11/11/20 20: Ur Specific [place] 1.045 (1.003-1.030) H 11/11/20 20:27 Urine Protein 100 mg/dl mg/dL (Negative) 11/11/20 20: Urine Glucose (UA) Neg mg/dL (Negative) 11/11/20 20: Urine Ketones Neg mg/dL (Negative) 11/11/20 20:27 Urine Blood Sm (Negative) 11/11/20 20: Urine Nitrite Neg (Negative) 11/11/20 20: Urine Bilirubin Neg (Negative) 11/11/20 20:27 Urine Urobilinogen 4.0 mg/dL (<2.0) 11/11/20 20:27 Ur Leukocyte Esterase Neg (Negative) 11/11/20 20:27 Urine WBC (Auto) 1.0 /HPF (0.0-6.0) 11/11/20 20:27 Urine RBC (Auto) 4.0 /HPF (0.0-6.0) 11/11/20 20:27 U Epithel Cells (Auto) 12.0 /HPF (0-13.0) 11/11/20 20:27 Urine Bacteria (Auto) 1+ /HPF (Negative) 11/11/20 20:27 Urine Mucus Few /HPF 11/11/20 20:27 Urine Opiates Screen Negative 11/11/20 20:27 Urine Methadone Screen Negative 11/11/20 20:27 Ur Barbiturates Screen Positive 11/11/20 20:27 Ur Phencyclidine Scrn Negative 11/11/20 20:27 Ur Amphetamines Screen Negative 11/11/20 20:27 Phenobarbital 4.3 ug/mL (15.0-40.0) L 11/12/20 08:47 U Benzodiazepines Scrn Negative 11/11/20 20:27 Urine Cocaine Screen Negative 11/11/20 20:27 U Marijuana (THC) Screen Negative 11/11/20 20:27 Drugs of Abuse Note Disclamer 11/11/20 20:27 Plasma/Serum Alcohol < 0.01 % (0-0.07) 11/11/20 09:02 Coronavirus (PCR) Negative (Negative) 11/12/20 08:00 [place]/IV: Voiding Method Incontinent Active Medications - Current Medications Current Medications: Generic Name Dose Route Start Last Admin Trade Name Freq PRN Reason Stop Dose Admin Acetaminophen 650 mg 11/11/20 22:58 Acetaminophen 325 Mg Tab PO Q4H PRN Pain MILD(1-3)/Fever >100.5/BAR Albuterol 2.5 mg 11/11/20 23:18 Albuterol 2.5 Mg/3 Ml Nebu IH Q3HRT PRN Wheezing Lipase/Protease/Amylase 1 each 11/12/20 12:00 Lipase 10,500/Protease 25,000/Amylase 43,750 (Units) Dr Rangel FEEDTUBE PRN PRN For Clogged Feeding Tube Dextrose 50 ml 11/11/20 22:11 11/17/20 23:29 Dextrose 50% In Water (25gm) 50 Ml Syringe IV 10 ml ONCE PRN Administration Hypoglycemia Protocol Enoxaparin Sodium 40 mg 11/12/20 22:00 11/19/20 23:12 Enoxaparin 40 Mg/0.4 Ml Inj SUB-Q 40 mg QDAY@2200 KIRK Administration Protocol Famotidine 20 mg 11/19/20 10:00 11/20/20 09:41 Famotidine 20 Mg/2 Ml Inj IV 20 mg BID KIRK Administration Folic Acid 1 mg 11/16/20 10:00 11/20/20 09:30 Folic Acid 1 Mg Tab PO Not Given DAILY KIRK Hydralazine HCl 10 mg 11/12/20 10:30 11/14/20 07:30 Hydralazine 20 Mg/1 Ml Inj IV 10 mg Q4H PRN Administration Hypertension Hydrophilic Ointment 1 applic 11/11/20 09:14 Lip Therapy Vaseline TP Q2HR PRN Dry Lips Levetiracetam 1,000 mg/ 110 mls @ 400 mls/hr 11/18/20 22:00 11/20/20 09:41 Dextrose IV 400 mls/hr Q12HR KIRK Administration Dextrose 1,000 mls @ 75 mls/hr 11/18/20 16:00 11/20/20 04:58 D5w IV Infused DIRECT KIRK Infusion Propofol 1,000 mg in 100 mls @ 2.1 mls/hr 11/18/20 16:00 11/19/20 10:10 Diprivan 10 Mg/Ml IV 0 mcg/kg/min TITR KIRK 0 mls/hr Titration Protocol 5 MCG/KG/MIN Insulin Human Regular 0 units 11/12/20 18:00 11/20/20 00:14 Insulin Regular, Human 100 Units/1 Ml SUB-Q Not Given Q6H KIRK Protocol Metoclopramide HCl 10 mg 11/11/20 22:58 Metoclopramide 10 Mg/2 Ml Inj IV Q6H PRN Nausea And Vomiting Multi-Ingred Cream/Lotion/Oil/Oint 1 applic 11/11/20 09:14 Mineral Oil/Petrolatum, White Ophth Oint 3.5 Gm OU Q4HR PRN Dry Eye(s) Multivitamins 1 each 11/13/20 00:00 11/20/20 00:15 Multivitamins ,Therapeutic Tab PO Not Given Q24H KIRK Naloxone HCl 2 mg 11/11/20 08:33 Naloxone 0.4 Mg/1 Ml Inj IV Q2MIN PRN Res Rate </= 8 or 02 SAT < 92% Ondansetron HCl 4 mg 11/11/20 22:58 Ondansetron 4 Mg/2 Ml Inj IV Q3H PRN Nausea And Vomiting Phenobarbital 15 mg 11/11/20 23:45 11/20/20 09:31 Phenobarbital 15 Mg Tab PO Not Given BID KIRK Simple Syrup 15 ml 11/12/20 12:00 Simple Syrup 15 Ml FEEDTUBE PRN PRN Hypoglycemia Simple Syrup 30 ml 11/12/20 12:00 Simple Syrup 15 Ml FEEDTUBE PRN PRN Hypoglycemia Sodium Bicarbonate 325 mg 11/12/20 12:00 Sodium Bicarbonate 325 Mg Tab FEEDTUBE PRN PRN For Clogged Feeding Tube Sodium Chloride 10 ml 11/11/20 23:00 11/20/20 09:41 Sodium Chloride 0.9% 10 Ml Flush Syringe IV 10 ml BID KIRK Administration Sodium Chloride 10 ml 11/11/20 22:58 Sodium Chloride 0.9% 10 Ml Flush Syringe IV PRN PRN LINE FLUSH Thiamine HCl 100 mg 11/16/20 10:00 11/20/20 09:30 Thiamine 100 Mg Tab PO Not Given QDAY KIRK Nutrition/Malnutrition Assess - Dietary Evaluation Nutrition/Malnutrition Findings: Nutrition Notes Start: 11/12/20 08:26 Freq: Status: Active Protocol: Document 11/19/20 12:44 AL (Rec: 11/19/20 12:51 AL [id number]) Co-Sign 11/19/20 12:44 LP Nutrition Notes Initial or Follow up Reassessment Current Diagnosis Respiratory Failure,Stroke Other Pertinent Diagnosis Seizures Current Diet Jevity 1.2 at 60 ml/hr Labs/Tests No new labs Pertinent Medications Propofol at 4.2 ml/hr D5w at 75 ml/hr Height 5 ft 9 in Weight 70 kg Laie Body Weight (kg) 72.72 BMI 22.8 Weight Status Appropriate Subjective/Other Information F/U for [employer] swallow evaluation and TF. Per note, dobhoff placement was unsuccessful. Pt has TF order but has been NPO since 11/17 extubation. Per MD, pt will be moved to the floor and suggests that a PEG be placed. Percent of energy/protein needs met: 0%/0% Burn Absent Trauma Absent GI Symptoms None Current % PO Negligible Minimum of two criteria No physical signs of malnutrition #2 Nutrition Diagnosis Inadequate energy intake Etiology Failure to place dobhoff for TF. As Evidenced by Signs and Symptoms pt has been NPO since 11/17 extubation and is not receiving TF. #1 Nutrition Diagnosis Inadequate oral intake As Evidenced by Signs and Symptoms Pt is extubated and still unable to consume food PO Diagnosis Progress(for reassessment Continues documentation) Is patient on ventilator? No Is Patient Ambulatory and/or Out of Bed No REE-([facility]-confined to bed) [phone] Calculation Used for Recommendations [facility] Additional Notes Protein: 70-84 g (1.0-1.2 g/kg ABW) Fluid: 1 ml/kcal Nutrition Intervention Change Diet Order: TF Nutrition Support: Jevity 1.2 at 60 ml/hr Flush 100 mL Kcal 1,728 Protein (gm) 80 Fluid (mL) 1,162 Goal #1 Restart TF and TF tolerance Goal #2 Meet 75% of estimated energy and protein needs via TF Anticipated Discharge Needs: Unable to determine at the time Follow-Up By: 11/22/20 Additional Comments F/U for TF consult and POC
--- NOTE | 2020-11-20 11:02 | Hem/Onc Consultation ---
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 not looking like a candidate for chemotherapy, maybe not a candidate for radiation confusion and recent seizure more important problems than tumor, per se does he have brain mets? REC: consider brain MRI to eval for brain mets consider PG tube, but not "required" from my perspective if he is close to dying epiglottis tumor radiation could be reasonable if he were not close to dying end of life discussion is appropriate from heme/onc perspective, partly because of locally adv cancer Laboratory Last Values WBC 10.2 K/mm3 (4.5-11.0) 11/18/20 05:44 Hgb 11.6 gm/dl (11.8-15.2) L 11/18/20 05:44 Hct 35.1 % (35.5-45.6) L 11/18/20 05:44 Plt Count 228 K/mm3 (140-440) 11/18/20 05:44 Albumin 2.5 g/dL (3.9-5) L 11/18/20 05:44 Coronavirus (PCR) Negative (Negative) 11/12/20 08:00 Past History Past Medical History: seizures Medications and Allergies Allergies Allergy/AdvReac Type Severity Reaction Status Date / Time No Known Allergies Allergy Verified 02/24/18 09:21 Home Medications Medication Instructions Recorded Confirmed Last Taken Type PHENobarbitaL [PHENobarbital] 15 mg PO BID 30 Days #60 tablet 05/30/20 11/12/20 Unknown Rx levETIRAcetam [Keppra TAB] 500 mg PO BID #60 tablet 05/30/20 08/12/20 Unknown Rx Vitamin B-1 100 mg PO DAILY 08/12/20 11/12/20 Unknown History levETIRAcetam [Keppra TAB] 1,000 mg PO BID 30 Days #60 tab 08/12/20 Unknown Rx levETIRAcetam [Keppra TAB] 1,000 mg PO BID 90 Days #180 tab 10/01/20 Unknown Rx haloperidoL [Haloperidol] 5 mg PO ONCE 11/12/20 11/12/20 Unknown History Active Meds: Active Medications Acetaminophen (Acetaminophen 325 Mg Tab) 650 mg PO Q4H PRN PRN Reason: Pain MILD(1-3)/Fever >100.5/BAR Albuterol (Albuterol 2.5 Mg/3 Ml Nebu) 2.5 mg IH Q3HRT PRN PRN Reason: Wheezing Lipase/Protease/Amylase (Lipase 10,500/Protease 25,000/Amylase 43,750 (Units) Dr Rangel) 1 each FEEDTUBE PRN PRN PRN Reason: For Clogged Feeding Tube Dextrose (Dextrose 50% In Water (25gm) 50 Ml Syringe) 50 ml IV ONCE PRN; Protocol PRN Reason: Hypoglycemia Last Admin: 11/17/20 23:29 Dose: 10 ml Documented by: Enoxaparin Sodium (Enoxaparin 40 Mg/0.4 Ml Inj) 40 mg SUB-Q QDAY@2200 KIRK; Protocol Last Admin: 11/19/20 23:12 Dose: 40 mg Documented by: Famotidine (Famotidine 20 Mg/2 Ml Inj) 20 mg IV BID KIRK Last Admin: 11/20/20 09:41 Dose: 20 mg Documented by: Folic Acid (Folic Acid 1 Mg Tab) 1 mg PO DAILY KIRK Last Admin: 11/20/20 09:30 Dose: Not Given Documented by: Hydralazine HCl (Hydralazine 20 Mg/1 Ml Inj) 10 mg IV Q4H PRN PRN Reason: Hypertension Last Admin: 11/14/20 07:30 Dose: 10 mg Documented by: Hydrophilic Ointment (Lip Therapy Vaseline) 1 applic TP Q2HR PRN PRN Reason: Dry Lips Levetiracetam 1,000 mg/ (Dextrose) 110 mls @ 400 mls/hr IV Q12HR KIRK Last Admin: 11/20/20 09:41 Dose: 400 mls/hr Documented by: Dextrose (D5w) 1,000 mls @ 75 mls/hr IV DIRECT [facility] Last Infusion: 11/20/20 04:58 Dose: Infused Documented by: Propofol (Diprivan 10 Mg/Ml) 1,000 mg in 100 mls @ 2.1 mls/hr IV TITR [facility]; Protocol Last Titration: 11/19/20 10:10 Dose: 0 mcg/kg/min, 0 mls/hr Documented by: Insulin Human Regular (Insulin Regular, Human 100 Units/1 Ml) 0 units SUB-Q Q6H [facility]; Protocol Last Admin: 11/20/20 00:14 Dose: Not Given Documented by: Metoclopramide HCl (Metoclopramide 10 Mg/2 Ml Inj) 10 mg IV Q6H PRN PRN Reason: Nausea And Vomiting Multi-Ingred Cream/Lotion/Oil/Oint (Mineral Oil/Petrolatum, White Ophth Oint 3.5 Gm) 1 applic OU Q4HR PRN PRN Reason: Dry Eye(s) Multivitamins (Multivitamins ,Therapeutic Tab) 1 each PO Q24H [facility] Last Admin: 11/20/20 00:15 Dose: Not Given Documented by: Naloxone HCl (Naloxone 0.4 Mg/1 Ml Inj) 2 mg IV Q2MIN PRN PRN Reason: Res Rate </= 8 or 02 SAT < 92% Ondansetron HCl (Ondansetron 4 Mg/2 Ml Inj) 4 mg IV Q3H PRN PRN Reason: Nausea And Vomiting Phenobarbital (Phenobarbital 15 Mg Tab) 15 mg PO BID [facility] Last Admin: 11/20/20 09:31 Dose: Not Given Documented by: Simple Syrup (Simple Syrup 15 Ml) 15 ml FEEDTUBE PRN PRN PRN Reason: Hypoglycemia Simple Syrup (Simple Syrup 15 Ml) 30 ml FEEDTUBE PRN PRN PRN Reason: Hypoglycemia Sodium Bicarbonate (Sodium Bicarbonate 325 Mg Tab) 325 mg FEEDTUBE PRN PRN PRN Reason: For Clogged Feeding Tube Sodium Chloride (Sodium Chloride 0.9% 10 Ml Flush Syringe) 10 ml IV BID [facility] Last Admin: 11/20/20 09:41 Dose: 10 ml Documented by: Sodium Chloride (Sodium Chloride 0.9% 10 Ml Flush Syringe) 10 ml IV PRN PRN PRN Reason: LINE FLUSH Thiamine HCl (Thiamine 100 Mg Tab) 100 mg PO QDAY [facility] Last Admin: 11/20/20 09:30 Dose: Not Given Documented by: Exam - Constitutional Vitals: Last Vital Signs Temp 97.7 F 11/20/20 06:24 Pulse 63 11/20/20 06:24 Resp 20 11/20/20 06:24 BP 147/69 11/20/20 06:24 Pulse Ox 96 11/20/20 06:24 Results - Labs lab Results: Laboratory Results - last 24 hr 11/19/20 11/19/20 11/19/20 11:10 17:26 22:07 POC Glucose 116 H 90 92
[2020-11-20] MEDS: DEXTROSE 5% IN WATER 1,000 ML IV SCH (17:54)
[2020-11-20] MEDS: ENOXAPARIN 40 MG/0.4 ML INJ SUB-Q SCH (22:00)
[2020-11-21] MEDS: MULTIVITAMINS ,THERAPEUTIC TAB PO SCH
[2020-11-21] MEDS: INSULIN REGULAR, HUMAN 100 UNITS/1 ML SUB-Q SCH ×4 (06:13→19:22)
--- NOTE | 2020-11-21 09:17 | Progress Note ---
Assessment and Plan Assessment and plan: This is a 60-year-old male with seizure disorder current alcohol and tobacco abuse presents to the hospital on 11/11 after being found unresponsive. On arrival of EMS patient was found to be hypoglycemic and given IV dextrose after which he recovered and refused further care. EMS was called again by family after the patient was found unresponsive and was given Narcan with no change. Patient was noted to have seizure activity and given 7 mg IV Ativan total including 3 from EMS. Patient was loaded with Keppra 2 g and was intubated for airway protection. Patient was found to have metabolic acidosis and hypoglycemia on BMP. Patient was found to be hypothermic and hypertensive in the emergency department. Patient's UDS was positive for barbiturates. Patient was admitted to the hospital service for further work-up with consults to [facility] and neurology. 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 Patient remains intubated. On Keppra and phenobarbital. Neurology evaluation appreciated. EEG ordered. May need transfer to tertiary care for continuous EEG pending EEG results. 11/13. Remains intubated and on antiseizure medications. EEG has been performed but results are pending. Neurology on board 11/14. Remains intubated and on antiseizure medications. EEG has been performed but results are pending. Neurology on board 11/15: EEG is consistent with significant encephalopathy and does not rule out th e possibility of epilepsy, patient remains on mechanical ventilation with minimal vent settings. No acute events reported overnight. 11/16: No acute events reported overnight, patient opens eyes spontaneously and withdraws to pain bilateral lower extremities. At the time my examination patient was on CMV 450/18/64/0.30 and has been started on a CPAP trial subsequently. No evidence of generalized seizures noted. Patient [place] state 11/17: Patient was extubated today per CCM, no acute events reported overnight. Patient has a right sided gaze during my examination and was on CPAP 06/08 at 30% and he opens his eyes spontaneously. He does withdraw bilateral lower extremities to pain. His Keppra was decreased yesterday. ST evaluation pending 11/18: Follow-up EEG reading. Patient currently off sedation. Nursing to place Dobbhoff tube for feeding. Speech therapy to continue swallow evaluation. No new seizure activity. Continue phenobarbital and Keppra. Seizure precautions. Transfer to [facility] today. 11/19: Dobbhoff tube with removal difficulty yesterday. 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 CT scan of the chest revealed pulmonary nodule and lesion in the liver suggestive of metastatic disease. GI consultation pending. Patient was electively intubated yesterday for airway protection. Extubation today per pulmonary 11/20: Await speech therapy evaluation. Patient will likely need PEG tube placement. Consult GI for further evaluation. Oncology consultation for likely metastatic disease. 11/21: Await GI consultation. Appreciate oncology evaluation. 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 Check MRI brain to rule out brain metastasis. Poor prognosis. History Interval history: No new seizure activity Hospitalist Physical - Constitutional Vitals: Temp Pulse Resp BP Pulse Ox 97.6 F 60 18 152/77 97 11/21/20 00:01 11/21/20 00:01 11/21/20 00:01 11/21/20 00:01 11/21/20 00:01 General appearance: Present: no acute distress, other (unresponsive) - EENT Eyes: Present: PERRL, EOM intact ENT: hearing intact, clear oral mucosa, dentition normal - Neck Neck: Present: supple, normal ROM - Respiratory Respiratory effort: normal Respiratory: bilateral: CTA - Cardiovascular Rhythm: regular Heart Sounds: Present: S1 & S2. Absent: gallop, rub - Extremities Extremities: no ischemia, No edema, Full ROM - Abdominal General gastrointestinal: soft, non-tender, non-distended, normal bowel sounds - Integumentary Integumentary: Present: clear, warm, dry - Neurologic Neurologic: CNII-XII intact, moves all extremities HEART Score - HEART Score Troponin: Troponin T < 0.010 ng/mL (0.00-0.029) 11/11/20 09:02 Results - Labs CBC & Chem 7: 11/18/20 05:44 11/18/20 05:44 Labs: Laboratory Last Values WBC 10.2 K/mm3 (4.5-11.0) 11/18/20 05:44 RBC 4.06 M/mm3 (3.65-5.03) 11/18/20 05:44 Hgb 11.6 gm/dl (11.8-15.2) L 11/18/20 05:44 Hct 35.1 % (35.5-45.6) L 11/18/20 05:44 MCV 86 fl (84-94) 11/18/20 05:44 MCH 29 pg (28-32) 11/18/20 05:44 MCHC 33 % (32-34) 11/18/20 05:44 RDW 16.1 % (13.2-15.2) H 11/18/20 05:44 Plt Count 228 K/mm3 (140-440) 11/18/20 05:44 Lymph % (Auto) 20.4 % (13.4-35.0) 11/18/20 05:44 Tate % (Auto) 10.4 % (0.0-7.3) H 11/18/20 05:44 Eos % (Auto) 2.5 % (0.0-4.3) 11/18/20 05:44 Baso % (Auto) 1.0 % (0.0-1.8) 11/18/20 05:44 Lymph # (Auto) 2.1 K/mm3 (1.2-5.4) 11/18/20 05:44 Tate # (Auto) 1.1 K/mm3 (0.0-0.8) H 11/18/20 05:44 Eos # (Auto) 0.3 K/mm3 (0.0-0.4) 11/18/20 05:44 Baso # (Auto) 0.1 K/mm3 (0.0-0.1) 11/18/20 05:44 Seg Neutrophils % 65.7 % (40.0-70.0) 11/18/20 05:44 Seg Neutrophils # 6.7 K/mm3 (1.8-7.7) 11/18/20 05:44 PT 11.5 Sec. (12.2-14.9) L 11/11/20 09:02 INR 0.86 (0.87-1.13) L 11/11/20 09:02 APTT 25.5 Sec. (24.2-36.6) 11/11/20 09:02 Thrombin Time 17.0 Sec. (15.1-19.6) 11/11/20 09:02 ABG pH 7.499 (7.320-7.450) H 11/17/20 11:40 POC ABG pCO2 36.3 mmHg (32.0-48.0) 11/17/20 11:40 ABG pCO2 33.9 mm Hg 11/11/20 10:45 POC ABG pO2 140.8 mmHg (83-108) H 11/17/20 11:40 ABG pO2 222.2 mm Hg (80.0-90.0) H 11/11/20 10:45 POC ABG HCO3 27.6 11/17/20 11:40 ABG HCO3 24.9 mmol/L (20.0-26.0) 11/11/20 10:45 ABG O2 Saturation 98.1 (0-100) 11/17/20 11:40 ABG O2 Content 19.4 (0.0-44) 11/11/20 10:45 POC ABG Base Excess 4.4 11/17/20 11:40 ABG Base Excess 1.9 mmol/L (-2.0-3.0) 11/11/20 10:45 ABG Hemoglobin 11.8 (12.0-17.5) L 11/17/20 11:40 ABG Oxyhemoglobin 97.4 (94-98) 11/17/20 11:40 ABG Carboxyhemoglobin 0.6 % (0.0-5.0) 11/11/20 10:45 ABG Methemoglobin 0.3 (0.0-1.5) 11/17/20 11:40 ABG Sodium 135.1 mmol/L (136.0-145.0) L 11/17/20 11:40 ABG Potassium 4.2 mmol/L (3.40-4.50) 11/17/20 11:40 ABG Chloride 102.0 mmol/L (98-107) 11/17/20 11:40 ABG Glucose 110 mg/dL (65-95) H 11/17/20 11:40 Oxyhemoglobin 98.5 % (95.0-99.0) 11/11/20 10:45 Carboxyhemoglobin 0.4 (0.5-1.5) L 11/17/20 11:40 FiO2 21 % 11/11/20 10:45 FiO2 % 30 11/17/20 11:40 Sodium 134 mmol/L (137-145) L 11/18/20 05:44 Potassium 4.3 mmol/L (3.6-5.0) 11/18/20 05:44 Chloride 96.3 mmol/L (98-107) L 11/18/20 05:44 Carbon Dioxide 31 mmol/L (22-30) H 11/18/20 05:44 Anion Gap 11 mmol/L 11/18/20 05:44 BUN 13 mg/dL (9-20) 11/18/20 05:44 Creatinine 0.5 mg/dL (0.8-1.3) L 11/18/20 05:44 Estimated GFR > 60 ml/min 11/18/20 05:44 BUN/Creatinine Ratio 26 % 11/18/20 05:44 Glucose 99 mg/dL (75-100) 11/18/20 05:44 POC Glucose 90 mg/dL (70-105) 11/21/20 05:48 Hemoglobin A1c 5.4 % (4-6) 11/12/20 07:26 Calcium 8.8 mg/dL (8.4-10.2) 11/18/20 05:44 Magnesium 2.00 mg/dL (1.7-2.3) 11/11/20 09:02 Total Bilirubin 0.40 mg/dL (0.1-1.2) 11/18/20 05:44 AST 36 units/L (5-40) 11/18/20 05:44 ALT 32 units/L (7-56) 11/18/20 05:44 Alkaline Phosphatase 80 units/L (35-129) 11/18/20 05:44 Ammonia 29.0 umol/L (25-60) 11/12/20 08:47 Total Creatine Kinase 169 units/L (55-170) 11/11/20 09:02 CK-MB (CK-2) 6.6 ng/mL (0.0-4.0) H 11/11/20 09:02 CK-MB (CK-2) Rel Index 3.9 (0-4) 11/11/20 09:02 Troponin T < 0.010 ng/mL (0.00-0.029) 11/11/20 09:02 Total Protein 6.3 g/dL (6.3-8.2) 11/18/20 05:44 Albumin 2.5 g/dL (3.9-5) L 11/18/20 05:44 Albumin/Globulin Ratio 0.7 % 11/18/20 05:44 Arterial Blood Glucose 110 mg/dL (65-95) H 11/17/20 11:40 Arterial Blood Ionized Calcium 4.9 mg/dL (4.6-5.3) 11/17/20 11:40 Urine Color Yellow (Yellow) 11/11/20 20: Urine Turbidity Clear (Clear) 11/11/20 20: Urine pH 6.0 (5.0-7.0) 11/11/20 20: Ur Specific [place] 1.045 (1.003-1.030) H 11/11/20 20: Urine Protein 100 mg/dl mg/dL (Negative) 11/11/20 20: Urine Glucose (UA) Neg mg/dL (Negative) 11/11/20 20: Urine Ketones Neg mg/dL (Negative) 11/11/20 20: Urine Blood Sm (Negative) 11/11/20 20: Urine Nitrite Neg (Negative) 11/11/20 20: Urine Bilirubin Neg (Negative) 11/11/20 20: Urine Urobilinogen 4.0 mg/dL (<2.0) 11/11/20 20: Ur Leukocyte Esterase Neg (Negative) 11/11/20 20: Urine WBC (Auto) 1.0 /HPF (0.0-6.0) 11/11/20 20: Urine RBC (Auto) 4.0 /HPF (0.0-6.0) 11/11/20 20: U Epithel Cells (Auto) 12.0 /HPF (0-13.0) 11/11/20 20: Urine Bacteria (Auto) 1+ /HPF (Negative) 11/11/20 20: Urine Mucus Few /HPF 11/11/20 20: Urine Opiates Screen Negative 11/11/20 20: Urine Methadone Screen Negative 11/11/20 20: Ur Barbiturates Screen Positive 11/11/20 20: Ur Phencyclidine Scrn Negative 11/11/20 20: Ur Amphetamines Screen Negative 11/11/20 20: Phenobarbital 4.3 ug/mL (15.0-40.0) L 11/12/20 08:47 U Benzodiazepines Scrn Negative 11/11/20 20:27 Urine Cocaine Screen Negative 11/11/20 20:27 U Marijuana (THC) Screen Negative 11/11/20 20:27 Drugs of Abuse Note Disclamer 11/11/20 20:27 Plasma/Serum Alcohol < 0.01 % (0-0.07) 11/11/20 09:02 Coronavirus (PCR) Negative (Negative) 11/12/20 08:00 [place]/IV: Voiding Method Condom Catheter Active Medications - Current Medications Current Medications: Generic Name Dose Route Start Last Admin Trade Name Freq PRN Reason Stop Dose Admin Acetaminophen 650 mg 11/11/20 22:58 Acetaminophen 325 Mg Tab PO Q4H PRN Pain MILD(1-3)/Fever >100.5/BAR Albuterol 2.5 mg 11/11/20 23:18 Albuterol 2.5 Mg/3 Ml Nebu IH Q3HRT PRN Wheezing Lipase/Protease/Amylase 1 each 11/12/20 12:00 Lipase 10,500/Protease 25,000/Amylase 43,750 (Units) Dr Rangel FEEDTUBE PRN PRN For Clogged Feeding Tube Dextrose 50 ml 11/11/20 22:11 11/17/20 23:29 Dextrose 50% In Water (25gm) 50 Ml Syringe IV 10 ml ONCE PRN Administration Hypoglycemia Protocol Enoxaparin Sodium 40 mg 11/12/20 22:00 11/20/20 22:00 Enoxaparin 40 Mg/0.4 Ml Inj SUB-Q 40 mg QDAY@2200 KIRK Administration Protocol Famotidine 20 mg 11/19/20 10:00 11/20/20 22:00 Famotidine 20 Mg/2 Ml Inj IV 20 mg BID KIRK Administration Folic Acid 1 mg 11/16/20 10:00 11/20/20 09:30 Folic Acid 1 Mg Tab PO Not Given DAILY [facility] Hydralazine HCl 10 mg 11/12/20 10:30 11/14/20 07:30 Hydralazine 20 Mg/1 Ml Inj IV 10 mg Q4H PRN Administration Hypertension Hydrophilic Ointment 1 applic 11/11/20 09:14 Lip Therapy Vaseline TP Q2HR PRN Dry Lips Levetiracetam 1,000 mg/ 110 mls @ 400 mls/hr 11/18/20 22:00 11/20/20 22:00 Dextrose IV 400 mls/hr Q12HR KIRK Administration Dextrose 1,000 mls @ 75 mls/hr 11/18/20 16:00 11/20/20 17:54 D5w IV 75 mls/hr DIRECT KIRK Administration Propofol 1,000 mg in 100 mls @ 2.1 mls/hr 11/18/20 16:00 11/19/20 10:10 Diprivan 10 Mg/Ml IV 0 mcg/kg/min TITR KIRK 0 mls/hr Titration Protocol 5 MCG/KG/MIN Insulin Human Regular 0 units 11/12/20 18:00 11/21/20 07:00 Insulin Regular, Human 100 Units/1 Ml SUB-Q Not Given Q6H KIRK Protocol Metoclopramide HCl 10 mg 11/11/20 22:58 Metoclopramide 10 Mg/2 Ml Inj IV Q6H PRN Nausea And Vomiting Multi-Ingred Cream/Lotion/Oil/Oint 1 applic 11/11/20 09:14 Mineral Oil/Petrolatum, White Ophth Oint 3.5 Gm OU Q4HR PRN Dry Eye(s) Multivitamins 1 each 11/13/20 00:00 11/21/20 00:00 Multivitamins ,Therapeutic Tab PO Not Given Q24H KIRK Naloxone HCl 2 mg 11/11/20 08:33 Naloxone 0.4 Mg/1 Ml Inj IV Q2MIN PRN Res Rate </= 8 or 02 SAT < 92% Ondansetron HCl 4 mg 11/11/20 22:58 Ondansetron 4 Mg/2 Ml Inj IV Q3H PRN Nausea And Vomiting Phenobarbital 15 mg 11/11/20 23:45 11/20/20 22:51 Phenobarbital 15 Mg Tab PO Not Given BID KIRK Simple Syrup 15 ml 11/12/20 12:00 Simple Syrup 15 Ml FEEDTUBE PRN PRN Hypoglycemia Simple Syrup 30 ml 11/12/20 12:00 Simple Syrup 15 Ml FEEDTUBE PRN PRN Hypoglycemia Sodium Bicarbonate 325 mg 11/12/20 12:00 Sodium Bicarbonate 325 Mg Tab FEEDTUBE PRN PRN For Clogged Feeding Tube Sodium Chloride 10 ml 11/11/20 23:00 03/20/21 22:00 Sodium Chloride 0.9% 10 Ml Flush Syringe IV 10 ml BID KIRK Administration Sodium Chloride 10 ml 11/11/20 22:58 Sodium Chloride 0.9% 10 Ml Flush Syringe IV PRN PRN LINE FLUSH Thiamine HCl 100 mg 11/16/20 10:00 11/20/20 09:30 Thiamine 100 Mg Tab PO Not Given QDAY KIRK Nutrition/Malnutrition Assess - Dietary Evaluation Nutrition/Malnutrition Findings: Nutrition Notes Start: 11/12/20 08:26 Freq: Status: Active Protocol: Document 11/19/20 12:44 AL (Rec: 11/19/20 12:51 AL [id number]) Co-Sign 11/19/20 12:44 LP Nutrition Notes Initial or Follow up Reassessment Current Diagnosis Respiratory Failure,Stroke Other Pertinent Diagnosis Seizures Current Diet Jevity 1.2 at 60 ml/hr Labs/Tests No new labs Pertinent Medications Propofol at 4.2 ml/hr D5w at 75 ml/hr Height 5 ft 9 in Weight 70 kg [place] Body Weight (kg) 72.72 BMI 22.8 Weight Status Appropriate Subjective/Other Information F/U for [employer] swallow evaluation and TF. Per note, dobhoff placement was unsuccessful. Pt has TF order but has been NPO since 11/17 extubation. Per MD, pt will be moved to the floor and suggests that a PEG be placed. Percent of energy/protein needs met: 0%/0% Burn Absent Trauma Absent GI Symptoms None Current % PO Negligible Minimum of two criteria No physical signs of malnutrition #2 Nutrition Diagnosis Inadequate energy intake Etiology Failure to place dobhoff for TF. As Evidenced by Signs and Symptoms pt has been NPO since 11/17 extubation and is not receiving TF. #1 Nutrition Diagnosis Inadequate oral intake As Evidenced by Signs and Symptoms Pt is extubated and still unable to consume food PO Diagnosis Progress(for reassessment Continues documentation) Is patient on ventilator? No Is Patient Ambulatory and/or Out of Bed No REE-([facility]-confined to bed) 0621.753 Calculation Used for Recommendations [facility] Additional Notes Protein: 70-84 g (1.0-1.2 g/kg ABW) Fluid: 1 ml/kcal Nutrition Intervention Change Diet Order: TF Nutrition Support: Jevity 1.2 at 60 ml/hr Flush 100 mL Kcal 1,728 Protein (gm) 80 Fluid (mL) 1,162 Goal #1 Restart TF and TF tolerance Goal #2 Meet 75% of estimated energy and protein needs via TF Anticipated Discharge Needs: Unable to determine at the time Follow-Up By: 11/22/20 Additional Comments F/U for TF consult and POC
[2020-11-21] MEDS: levETIRAcetam 1,000 MG in DEXTROSE 5% IN WATER 100 ML IV SCH (10:52)
[2020-11-21] MEDS: FAMOTIDINE 20 MG/2 ML INJ IV SCH ×2 (10:52→21:13)
[2020-11-21] MEDS: FOLIC ACID 1 MG TAB PO SCH (14:44)
[2020-11-21] MEDS: PHENobarbital 15 MG TAB PO SCH ×2 (14:44→22:30)
[2020-11-21] MEDS: THIAMINE 100 MG TAB PO SCH (14:45)
[2020-11-21] MEDS: D5W/0.45% NACL 1,000 ML IV SCH (17:01)
--- NOTE | 2020-11-21 19:05 | Gastroenterology Consultation ---
History of Present Illness - Reason for Consult Consult date: 11/21/20 PEG placement Requesting physician: ANGEL TOBAR - History of Present Illness This is a 70 yo male with pmh of seizure disorder, alcohol and tobacco abuse admitted on 11/11/2020 after being found unresponsive. Patient noted to be status epilepticus, intubated for airway protection, and then eventually extubated. Continues to be nonverbal and altered. On 11/19/2018, attempts for dobhoff tube placement done but it was getting coiled in the back of his throat. Dr. Romero with pulmonary did bronchoscopy, which revealed a large mass above the epiglottis. CT scan of the chest revealed pulmonary nodule and lesion in the liver suggestive of metastatic disease. GI consulted for PEG placement. Patient currently without any feeding tube for nutrition. Of note, patient is a lui of the [facility]. Medication list reviewed. Past History Past Medical History: seizures Medications and Allergies Allergies Allergy/AdvReac Type Severity Reaction Status Date / Time No Known Allergies Allergy Verified 02/24/18 09:21 Home Medications Medication Instructions Recorded Confirmed Last Taken Type PHENobarbitaL [PHENobarbital] 15 mg PO BID 30 Days #60 tablet 05/30/20 11/12/20 Unknown Rx levETIRAcetam [Keppra TAB] 500 mg PO BID #60 tablet 05/30/20 08/12/20 Unknown Rx Vitamin B-1 100 mg PO DAILY 08/12/20 11/12/20 Unknown History levETIRAcetam [Keppra TAB] 1,000 mg PO BID 30 Days #60 tab 08/12/20 Unknown Rx levETIRAcetam [Keppra TAB] 1,000 mg PO BID 90 Days #180 tab 10/01/20 Unknown Rx haloperidoL [Haloperidol] 5 mg PO ONCE 11/12/20 11/12/20 Unknown History Active Meds: Active Medications Acetaminophen (Acetaminophen 325 Mg Tab) 650 mg PO Q4H PRN PRN Reason: Pain MILD(1-3)/Fever >100.5/BAR Albuterol (Albuterol 2.5 Mg/3 Ml Nebu) 2.5 mg IH Q3HRT PRN PRN Reason: Wheezing Lipase/Protease/Amylase (Lipase 10,500/Protease 25,000/Amylase 43,750 (Units) Dr Rangel) 1 each FEEDTUBE PRN PRN PRN Reason: For Clogged Feeding Tube Dextrose (Dextrose 50% In Water (25gm) 50 Ml Syringe) 50 ml IV ONCE PRN; Protocol PRN Reason: Hypoglycemia Last Admin: 11/17/20 23:29 Dose: 10 ml Documented by: Enoxaparin Sodium (Enoxaparin 40 Mg/0.4 Ml Inj) 40 mg SUB-Q QDAY@2200 KIRK; Protocol Last Admin: 11/20/20 22:00 Dose: 40 mg Documented by: Famotidine (Famotidine 20 Mg/2 Ml Inj) 20 mg IV BID KIRK Last Admin: 11/21/20 10:52 Dose: 20 mg Documented by: Folic Acid (Folic Acid 1 Mg Tab) 1 mg PO DAILY KIRK Last Admin: 11/21/20 14:44 Dose: Not Given Documented by: Hydralazine HCl (Hydralazine 20 Mg/1 Ml Inj) 10 mg IV Q4H PRN PRN Reason: Hypertension Last Admin: 11/14/20 07:30 Dose: 10 mg Documented by: Hydrophilic Ointment (Lip Therapy Vaseline) 1 applic TP Q2HR PRN PRN Reason: Dry Lips Levetiracetam 1,000 mg/ (Dextrose) 110 mls @ 400 mls/hr IV Q12HR KIRK Last Admin: 11/21/20 10:52 Dose: 400 mls/hr Documented by: Dextrose (D5w) 1,000 mls @ 75 mls/hr IV DIRECT KIRK Last Admin: 11/20/20 17:54 Dose: 75 mls/hr Documented by: Propofol (Diprivan 10 Mg/Ml) 1,000 mg in 100 mls @ 2.1 mls/hr IV TITR KIRK; P rotocol Last Titration: 11/19/20 10:10 Dose: 0 mcg/kg/min, 0 mls/hr Documented by: Dextrose/Sodium Chloride (D5/0.45ns) 1,000 mls @ 75 mls/hr IV DIRECT KIRK Last Admin: 11/21/20 17:01 Dose: 75 mls/hr Documented by: Insulin Human Regular (Insulin Regular, Human 100 Units/1 Ml) 0 units SUB-Q Q6H KIRK; Protocol Last Admin: 11/21/20 12:00 Dose: Not Given Documented by: Metoclopramide HCl (Metoclopramide 10 Mg/2 Ml Inj) 10 mg IV Q6H PRN PRN Reason: Nausea And Vomiting Multi-Ingred Cream/Lotion/Oil/Oint (Mineral Oil/Petrolatum, White Ophth Oint 3.5 Gm) 1 applic OU Q4HR PRN PRN Reason: Dry Eye(s) Multivitamins (Multivitamins ,Therapeutic Tab) 1 each PO Q24H [facility] Last Admin: 11/21/20 00:00 Dose: Not Given Documented by: Naloxone HCl (Naloxone 0.4 Mg/1 Ml Inj) 2 mg IV Q2MIN PRN PRN Reason: Res Rate </= 8 or 02 SAT < 92% Ondansetron HCl (Ondansetron 4 Mg/2 Ml Inj) 4 mg IV Q3H PRN PRN Reason: Nausea And Vomiting Phenobarbital (Phenobarbital 15 Mg Tab) 15 mg PO BID [facility] Last Admin: 11/21/20 14:44 Dose: Not Given Documented by: Simple Syrup (Simple Syrup 15 Ml) 15 ml FEEDTUBE PRN PRN PRN Reason: Hypoglycemia Simple Syrup (Simple Syrup 15 Ml) 30 ml FEEDTUBE PRN PRN PRN Reason: Hypoglycemia Sodium Bicarbonate (Sodium Bicarbonate 325 Mg Tab) 325 mg FEEDTUBE PRN PRN PRN Reason: For Clogged Feeding Tube Sodium Chloride (Sodium Chloride 0.9% 10 Ml Flush Syringe) 10 ml IV BID [facility] Last Admin: 11/21/20 10:53 Dose: 10 ml Documented by: Sodium Chloride (Sodium Chloride 0.9% 10 Ml Flush Syringe) 10 ml IV PRN PRN PRN Reason: LINE FLUSH Thiamine HCl (Thiamine 100 Mg Tab) 100 mg PO QDAY [facility] Last Admin: 11/21/20 14:45 Dose: Not Given Documented by: Review of Systems - Review of Systems ROS unobtainable: due to mental status Exam - Constitutional Vital Signs: Temp Pulse Resp BP Pulse Ox 98.4 F 57 L 20 145/75 94 11/21/20 12:48 11/21/20 12:48 11/21/20 12:48 11/21/20 12:48 11/21/20 12:48 General appearance: no acute distress - Respiratory Respiratory effort: normal - Cardiovascular Rhythm: regular Heart Sounds: Present: S1 & S2 - Gastrointestinal General gastrointestinal: Present: soft, non-tender, non-distended, normal bowel sounds - Integumentary Integumentary: Present: clear, warm - Neurologic Neurological: other (nonverbal) - Labs CBC & Chem 7: 11/18/20 05:44 11/18/20 05:44 Lab Results: Laboratory Results - last 24 hr 11/20/20 11/20/20 11/21/20 16:22 23:58 05:48 POC Glucose 88 86 90 11/21/20 11/21/20 12:29 17:28 POC Glucose 96 86 Assessment and Plan # Suspected metastatic head and neck cancer with large mass over epiglottis as seen on bronchoscopy. - CT showed lung and liver lesions, concerning for mets - No tissue diagnosis as biopsies not done. Rec - recommend tissue diagnosis either with ENT involvement and evaluation of epiglottis mass with biopsy vs biopsy of the liver lesion. - in terms of PEG tube for nutrition, patient may need it given his current AMS. Will need to request assistance from case management for obtaining consent for the procedure.
[2020-11-21] MEDS: ENOXAPARIN 40 MG/0.4 ML INJ SUB-Q SCH (21:13)
[2020-11-22] MEDS: MULTIVITAMINS ,THERAPEUTIC TAB PO SCH (00:30)
[2020-11-22] MEDS: INSULIN REGULAR, HUMAN 100 UNITS/1 ML SUB-Q SCH ×5 (00:47→18:05)
[2020-11-22] MEDS: levETIRAcetam 1,000 MG in DEXTROSE 5% IN WATER 100 ML IV SCH ×3 (06:30→23:06)
--- NOTE | 2020-11-22 08:44 | Progress Note ---
Assessment and Plan Assessment and plan: This is a 60-year-old male with seizure disorder current alcohol and tobacco abuse presents to the hospital on 11/11 after being found unresponsive. On arrival of EMS patient was found to be hypoglycemic and given IV dextrose after which he recovered and refused further care. EMS was called again by family after the patient was found unresponsive and was given Narcan with no change. Patient was noted to have seizure activity and given 7 mg IV Ativan total including 3 from EMS. Patient was loaded with Keppra 2 g and was intubated for airway protection. Patient was found to have metabolic acidosis and hypoglycemia on BMP. Patient was found to be hypothermic and hypertensive in the emergency department. Patient's UDS was positive for barbiturates. Patient was admitted to the hospital service for further work-up with consults to [facility] and neurology. 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 Patient remains intubated. On Keppra and phenobarbital. Neurology evaluation appreciated. EEG ordered. May need transfer to tertiary care for continuous EEG pending EEG results. 11/13. Remains intubated and on antiseizure medications. EEG has been performed but results are pending. Neurology on board 11/14. Remains intubated and on antiseizure medications. EEG has been performed but results are pending. Neurology on board 11/15: EEG is consistent with significant encephalopathy and does not rule out th e possibility of epilepsy, patient remains on mechanical ventilation with minimal vent settings. No acute events reported overnight. 11/16: No acute events reported overnight, patient opens eyes spontaneously and withdraws to pain bilateral lower extremities. At the time my examination patient was on CMV 450/18/64/0.30 and has been started on a CPAP trial subsequently. No evidence of generalized seizures noted. Patient is a lui of the state 11/17: Patient was extubated today per CCM, no acute events reported overnight. Patient has a right sided gaze during my examination and was on CPAP 06/08 at 30% and he opens his eyes spontaneously. He does withdraw bilateral lower extremities to pain. His Keppra was decreased yesterday. ST evaluation pending 11/18: Follow-up EEG reading. Patient currently off sedation. Nursing to place Dobbhoff tube for feeding. Speech therapy to continue swallow evaluation. No new seizure activity. Continue phenobarbital and Keppra. Seizure precautions. Transfer to [facility] today. 11/19: Dobbhoff tube with removal difficulty yesterday. 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 CT scan of the chest revealed pulmonary nodule and lesion in the liver suggestive of metastatic disease. GI consultation pending. Patient was electively intubated yesterday for airway protection. Extubation today per pulmonary 11/20: Await speech therapy evaluation. Patient will likely need PEG tube placement. Consult GI for further evaluation. Oncology consultation for likely metastatic disease. 11/21: Await GI consultation. Appreciate oncology evaluation. 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 Check MRI brain to rule out brain metastasis. Poor prognosis. 11/22: GI recommends tissue diagnosis either with ENT involvement and evaluation of epiglottis mass with biopsy vs biopsy of the liver lesion. Follow-up with case management for obtaining consent for possible PEG tube placement History Interval history: No new seizure activity Hospitalist Physical - Constitutional Vitals: Temp Pulse Resp BP Pulse Ox 98.0 F 64 18 166/84 95 11/22/20 04:53 11/22/20 04:53 11/22/20 04:53 11/22/20 04:53 11/22/20 04:53 General appearance: Present: no acute distress, other (unresponsive) - EENT Eyes: Present: PERRL, EOM intact ENT: hearing intact, clear oral mucosa, dentition normal - Neck Neck: Present: supple, normal ROM - Respiratory Respiratory effort: normal Respiratory: bilateral: CTA - Cardiovascular Rhythm: regular Heart Sounds: Present: S1 & S2. Absent: gallop, rub - Extremities Extremities: no ischemia, No edema, Full ROM - Abdominal General gastrointestinal: soft, non-tender, non-distended, normal bowel sounds - Integumentary Integumentary: Present: clear, warm, dry - Neurologic Neurologic: CNII-XII intact, moves all extremities HEART Score - HEART Score Troponin: Troponin T < 0.010 ng/mL (0.00-0.029) 11/11/20 09:02 Results - Labs CBC & Chem 7: 11/18/20 05:44 11/18/20 05:44 Labs: Laboratory Last Values WBC 10.2 K/mm3 (4.5-11.0) 11/18/20 05:44 RBC 4.06 M/mm3 (3.65-5.03) 11/18/20 05:44 Hgb 11.6 gm/dl (11.8-15.2) L 11/18/20 05:44 Hct 35.1 % (35.5-45.6) L 11/18/20 05:44 MCV 86 fl (84-94) 11/18/20 05:44 MCH 29 pg (28-32) 11/18/20 05:44 MCHC 33 % (32-34) 11/18/20 05:44 RDW 16.1 % (13.2-15.2) H 11/18/20 05:44 Plt Count 228 K/mm3 (140-440) 11/18/20 05:44 Lymph % (Auto) 20.4 % (13.4-35.0) 11/18/20 05:44 [place] % (Auto) 10.4 % (0.0-7.3) H 11/18/20 05:44 Eos % (Auto) 2.5 % (0.0-4.3) 11/18/20 05:44 Baso % (Auto) 1.0 % (0.0-1.8) 11/18/20 05:44 Lymph # (Auto) 2.1 K/mm3 (1.2-5.4) 11/18/20 05:44 [place] # (Auto) 1.1 K/mm3 (0.0-0.8) H 11/18/20 05:44 Eos # (Auto) 0.3 K/mm3 (0.0-0.4) 11/18/20 05:44 Baso # (Auto) 0.1 K/mm3 (0.0-0.1) 11/18/20 05:44 Seg Neutrophils % 65.7 % (40.0-70.0) 11/18/20 05:44 Seg Neutrophils # 6.7 K/mm3 (1.8-7.7) 11/18/20 05:44 PT 11.5 Sec. (12.2-14.9) L 11/11/20 09:02 INR 0.86 (0.87-1.13) L 11/11/20 09:02 APTT 25.5 Sec. (24.2-36.6) 11/11/20 09:02 Thrombin Time 17.0 Sec. (15.1-19.6) 11/11/20 09:02 ABG pH 7.499 (7.320-7.450) H 11/17/20 11:40 POC ABG pCO2 36.3 mmHg (32.0-48.0) 11/17/20 11:40 ABG pCO2 33.9 mm Hg 11/11/20 10:45 POC ABG pO2 140.8 mmHg (83-108) H 11/17/20 11:40 ABG pO2 222.2 mm Hg (80.0-90.0) H 11/11/20 10:45 POC ABG HCO3 27.6 11/17/20 11:40 ABG HCO3 24.9 mmol/L (20.0-26.0) 11/11/20 10:45 ABG O2 Saturation 98.1 (0-100) 11/17/20 11:40 ABG O2 Content 19.4 (0.0-44) 11/11/20 10:45 POC ABG Base Excess 4.4 11/17/20 11:40 ABG Base Excess 1.9 mmol/L (-2.0-3.0) 11/11/20 10:45 ABG Hemoglobin 11.8 (12.0-17.5) L 11/17/20 11:40 ABG Oxyhemoglobin 97.4 (94-98) 11/17/20 11:40 ABG Carboxyhemoglobin 0.6 % (0.0-5.0) 11/11/20 10:45 ABG Methemoglobin 0.3 (0.0-1.5) 11/17/20 11:40 ABG Sodium 135.1 mmol/L (136.0-145.0) L 11/17/20 11:40 ABG Potassium 4.2 mmol/L (3.40-4.50) 11/17/20 11:40 ABG Chloride 102.0 mmol/L (98-107) 11/17/20 11:40 ABG Glucose 110 mg/dL (65-95) H 11/17/20 11:40 Oxyhemoglobin 98.5 % (95.0-99.0) 11/11/20 10:45 Carboxyhemoglobin 0.4 (0.5-1.5) L 11/17/20 11:40 FiO2 21 % 11/11/20 10:45 FiO2 % 30 11/17/20 11:40 Sodium 134 mmol/L (137-145) L 11/18/20 05:44 Potassium 4.3 mmol/L (3.6-5.0) 11/18/20 05:44 Chloride 96.3 mmol/L (98-107) L 11/18/20 05:44 Carbon Dioxide 31 mmol/L (22-30) H 11/18/20 05:44 Anion Gap 11 mmol/L 11/18/20 05:44 BUN 13 mg/dL (9-20) 11/18/20 05:44 Creatinine 0.5 mg/dL (0.8-1.3) L 11/18/20 05:44 Estimated GFR > 60 ml/min 11/18/20 05:44 BUN/Creatinine Ratio 26 % 11/18/20 05:44 Glucose 99 mg/dL (75-100) 11/18/20 05:44 POC Glucose 79 mg/dL (70-105) 11/22/20 00:12 Hemoglobin A1c 5.4 % (4-6) 11/12/20 07:26 Calcium 8.8 mg/dL (8.4-10.2) 11/18/20 05:44 Magnesium 2.00 mg/dL (1.7-2.3) 11/11/20 09:02 Total Bilirubin 0.40 mg/dL (0.1-1.2) 11/18/20 05:44 AST 36 units/L (5-40) 11/18/20 05:44 ALT 32 units/L (7-56) 11/18/20 05:44 Alkaline Phosphatase 80 units/L (35-129) 11/18/20 05:44 Ammonia 29.0 umol/L (25-60) 11/12/20 08:47 Total Creatine Kinase 169 units/L (55-170) 11/11/20 09:02 CK-MB (CK-2) 6.6 ng/mL (0.0-4.0) H 11/11/20 09:02 CK-MB (CK-2) Rel Index 3.9 (0-4) 11/11/20 09:02 Troponin T < 0.010 ng/mL (0.00-0.029) 11/11/20 09:02 Total Protein 6.3 g/dL (6.3-8.2) 11/18/20 05:44 Albumin 2.5 g/dL (3.9-5) L 11/18/20 05:44 Albumin/Globulin Ratio 0.7 % 11/18/20 05:44 Arterial Blood Glucose 110 mg/dL (65-95) H 11/17/20 11:40 Arterial Blood Ionized Calcium 4.9 mg/dL (4.6-5.3) 11/17/20 11:40 Urine Color Yellow (Yellow) 11/11/20 20: Urine Turbidity Clear (Clear) 11/11/20 20: Urine pH 6.0 (5.0-7.0) 11/11/20 20: Ur Specific [place] 1.045 (1.003-1.030) H 11/11/20 20:27 Urine Protein 100 mg/dl mg/dL (Negative) 11/11/20 20: Urine Glucose (UA) Neg mg/dL (Negative) 11/11/20 20: Urine Ketones Neg mg/dL (Negative) 11/11/20 20: Urine Blood Sm (Negative) 11/11/20 20: Urine Nitrite Neg (Negative) 11/11/20 20: Urine Bilirubin Neg (Negative) 11/11/20 20: Urine Urobilinogen 4.0 mg/dL (<2.0) 11/11/20 20:27 Ur Leukocyte Esterase Neg (Negative) 11/11/20 20: Urine WBC (Auto) 1.0 /HPF (0.0-6.0) 11/11/20 20: Urine RBC (Auto) 4.0 /HPF (0.0-6.0) 11/11/20 20: U Epithel Cells (Auto) 12.0 /HPF (0-13.0) 11/11/20 20: Urine Bacteria (Auto) 1+ /HPF (Negative) 11/11/20 20: Urine Mucus Few /HPF 11/11/20 20:27 Urine Opiates Screen Negative 11/11/20 20: Urine Methadone Screen Negative 11/11/20 20: Ur Barbiturates Screen Positive 11/11/20 20:27 Ur Phencyclidine Scrn Negative 11/11/20 20:27 Ur Amphetamines Screen Negative 11/11/20 20:27 Phenobarbital 4.3 ug/mL (15.0-40.0) L 11/12/20 08:47 U Benzodiazepines Scrn Negative 11/11/20 20:27 Urine Cocaine Screen Negative 11/11/20 20:27 U Marijuana (THC) Screen Negative 11/11/20 20:27 Drugs of Abuse Note Disclamer 11/11/20 20:27 Plasma/Serum Alcohol < 0.01 % (0-0.07) 11/11/20 09:02 Coronavirus (PCR) Negative (Negative) 11/12/20 08:00 [place]/IV: Voiding Method Incontinent Active Medications - Current Medications Current Medications: Generic Name Dose Route Start Last Admin Trade Name Freq PRN Reason Stop Dose Admin Acetaminophen 650 mg 11/11/20 22:58 Acetaminophen 325 Mg Tab PO Q4H PRN Pain MILD(1-3)/Fever >100.5/BAR Albuterol 2.5 mg 11/11/20 23:18 Albuterol 2.5 Mg/3 Ml Nebu IH Q3HRT PRN Wheezing Lipase/Protease/Amylase 1 each 11/12/20 12:00 Lipase 10,500/Protease 25,000/Amylase 43,750 (Units) Dr Rangel FEEDTUBE PRN PRN For Clogged Feeding Tube Dextrose 50 ml 11/11/20 22:11 11/17/20 23:29 Dextrose 50% In Water (25gm) 50 Ml Syringe IV 10 ml ONCE PRN Administration Hypoglycemia Protocol Enoxaparin Sodium 40 mg 11/12/20 22:00 11/21/20 21:13 Enoxaparin 40 Mg/0.4 Ml Inj SUB-Q 40 mg QDAY@2200 KIRK Administration Protocol Famotidine 20 mg 11/19/20 10:00 11/21/20 21:13 Famotidine 20 Mg/2 Ml Inj IV 20 mg BID KIRK Administration Folic Acid 1 mg 11/16/20 10:00 11/21/20 14:44 Folic Acid 1 Mg Tab PO Not Given DAILY KIRK Hydralazine HCl 10 mg 11/12/20 10:30 11/14/20 07:30 Hydralazine 20 Mg/1 Ml Inj IV 10 mg Q4H PRN Administration Hypertension Hydrophilic Ointment 1 applic 11/11/20 09:14 Lip Therapy Vaseline TP Q2HR PRN Dry Lips Levetiracetam 1,000 mg/ 110 mls @ 400 mls/hr 11/18/20 22:00 11/22/20 06:30 Dextrose IV 400 mls/hr Q12HR KIRK Administration Dextrose 1,000 mls @ 75 mls/hr 11/18/20 16:00 11/20/20 17:54 D5w IV 75 mls/hr DIRECT KIRK Administration Propofol 1,000 mg in 100 mls @ 2.1 mls/hr 11/18/20 16:00 11/19/20 10:10 Diprivan 10 Mg/Ml IV 0 mcg/kg/min TITR KIRK 0 mls/hr Titration Protocol 5 MCG/KG/MIN Dextrose/Sodium Chloride 1,000 mls @ 75 mls/hr 11/21/20 15:00 11/21/20 17:01 D5/0.45ns IV 75 mls/hr DIRECT KIRK Administration Insulin Human Regular 0 units 11/12/20 18:00 11/22/20 06:46 Insulin Regular, Human 100 Units/1 Ml SUB-Q Not Given Q6H KIRK Protocol Metoclopramide HCl 10 mg 11/11/20 22:58 Metoclopramide 10 Mg/2 Ml Inj IV Q6H PRN Nausea And Vomiting Multi-Ingred Cream/Lotion/Oil/Oint 1 applic 11/11/20 09:14 Mineral Oil/Petrolatum, White Ophth Oint 3.5 Gm OU Q4HR PRN Dry Eye(s) Multivitamins 1 each 11/13/20 00:00 11/22/20 00:30 Multivitamins ,Therapeutic Tab PO Not Given Q24H KIRK Naloxone HCl 2 mg 11/11/20 08:33 Naloxone 0.4 Mg/1 Ml Inj IV Q2MIN PRN Res Rate </= 8 or 02 SAT < 92% Ondansetron HCl 4 mg 11/11/20 22:58 Ondansetron 4 Mg/2 Ml Inj IV Q3H PRN Nausea And Vomiting Phenobarbital 15 mg 11/11/20 23:45 11/21/20 22:30 Phenobarbital 15 Mg Tab PO Not Given BID KIRK Simple Syrup 15 ml 11/12/20 12:00 Simple Syrup 15 Ml FEEDTUBE PRN PRN Hypoglycemia Simple Syrup 30 ml 11/12/20 12:00 Simple Syrup 15 Ml FEEDTUBE PRN PRN Hypoglycemia Sodium Bicarbonate 325 mg 11/12/20 12:00 Sodium Bicarbonate 325 Mg Tab FEEDTUBE PRN PRN For Clogged Feeding Tube Sodium Chloride 10 ml 11/11/20 23:00 11/21/20 21:14 Sodium Chloride 0.9% 10 Ml Flush Syringe IV 10 ml BID KIRK Administration Sodium Chloride 10 ml 11/11/20 22:58 Sodium Chloride 0.9% 10 Ml Flush Syringe IV PRN PRN LINE FLUSH Thiamine HCl 100 mg 11/16/20 10:00 11/21/20 14:45 Thiamine 100 Mg Tab PO Not Given QDAY KIRK Nutrition/Malnutrition Assess - Dietary Evaluation Nutrition/Malnutrition Findings: Nutrition Notes Start: 11/12/20 08:26 Freq: Status: Active Protocol: Document 11/19/20 12:44 AL (Rec: 11/19/20 12:51 AL [id number]) Co-Sign 11/19/20 12:44 LP Nutrition Notes Initial or Follow up Reassessment Current Diagnosis Respiratory Failure,Stroke Other Pertinent Diagnosis Seizures Current Diet Jevity 1.2 at 60 ml/hr Labs/Tests No new labs Pertinent Medications Propofol at 4.2 ml/hr D5w at 75 ml/hr Height 5 ft 9 in Weight 70 kg [place] Body Weight (kg) 72.72 BMI 22.8 Weight Status Appropriate Subjective/Other Information F/U for [employer]END[employer] swallow evaluation and TF. Per note, dobhoff placement was unsuccessful. Pt has TF order but has been NPO since 11/17 extubation. Per MD, pt will be moved to the floor and suggests that a PEG be placed. Percent of energy/protein needs met: 0%/0% Burn Absent Trauma Absent GI Symptoms None Current % PO Negligible Minimum of two criteria No physical signs of malnutrition #2 Nutrition Diagnosis Inadequate energy intake Etiology Failure to place dobhoff for TF. As Evidenced by Signs and Symptoms pt has been NPO since 11/17 extubation and is not receiving TF. #1 Nutrition Diagnosis Inadequate oral intake As Evidenced by Signs and Symptoms Pt is extubated and still unable to consume food PO Diagnosis Progress(for reassessment Continues documentation) Is patient on ventilator? No Is Patient Ambulatory and/or Out of Bed No REE-([facility] [place]-confined to bed) [phone] Calculation Used for Recommendations [facility] Additional Notes Protein: 70-84 g (1.0-1.2 g/kg ABW) Fluid: 1 ml/kcal Nutrition Intervention Change Diet Order: TF Nutrition Support: Jevity 1.2 at 60 ml/hr Flush 100 mL Kcal 1,728 Protein (gm) 80 Fluid (mL) 1,162 Goal #1 Restart TF and TF tolerance Goal #2 Meet 75% of estimated energy and protein needs via TF Anticipated Discharge Needs: Unable to determine at the time Follow-Up By: 11/22/20 Additional Comments F/U for TF consult and POC
[2020-11-22] MEDS: THIAMINE 100 MG TAB PO SCH (10:33)
[2020-11-22] MEDS: FOLIC ACID 1 MG TAB PO SCH (10:33)
[2020-11-22] MEDS: FAMOTIDINE 20 MG TAB FEEDTUBE SCH ×2 (10:33→23:07)
[2020-11-22] MEDS: PHENobarbital 15 MG TAB PO SCH ×2 (10:33→23:07)
[2020-11-22] MEDS ORDERED: LORazepam 2 MG/ML VIAL IV ONE (11:00)
[2020-11-22] MEDS ORDERED: levETIRAcetam 750 MG in DEXTROSE 5% IN WATER 100 ML IV SCH (11:00)
--- NOTE | 2020-11-22 11:08 | Gastroenterology Progress Note ---
Assessment and Plan - Patient Problems (1) Neurogenic dysphagia Current Visit: Yes Status: Acute Plan to address problem: - Consent obtained for EGD/PEG tomorrow from guardian. - It is unclear if the patient has [id number] mental status changes from his seizures/developmental delay; nor is it clear if there is a lesion in the epiglottis area as per Pulmonary notes. - If lesion in oropharynx confirmed tomorrow at EGD, will place PEG (or if fails ST eval, as he likely will based on current Neuro status). Subjective Date of service: 11/22/20 Principal diagnosis: Neurogenic Dysphagia Interval history: The patient remains non-verbal, and does not respond to staff. He has had no more obvious seizure activity. He does withdraw to pain, but has no purposeful movement. Objective - Constitutional Vitals: Temp Pulse Resp BP Pulse Ox 98.0 F 64 18 166/84 95 11/22/20 04:53 11/22/20 04:53 11/22/20 04:53 11/22/20 04:53 11/22/20 04:53 General appearance: no acute distress, temporal muscle wasting - Respiratory Respiratory effort: normal Respiratory: bilateral: CTA - Cardiovascular Rhythm: regular Heart Sounds: Present: S1 & S2 - Gastrointestinal General gastrointestinal: Present: soft, non-tender, non-distended - Neurologic Neurological: other (Open eyes but nonverbal; only withdraws to pain. No seizure activity.) - Labs CBC & Chem 7: 11/18/20 05:44 11/18/20 05:44 Labs: Laboratory Results - last 24 hr 11/21/20 11/21/20 11/22/20 12:29 17:28 00:12 POC Glucose 96 86 79 11/22/20 06:43 POC Glucose 88
[2020-11-22] MEDS ORDERED: levETIRAcetam 500 MG/5 ML ORAL LIQD FEEDTUBE SCH (12:00)
--- NOTE | 2020-11-22 12:52 | Magnetic Resonance Report ---
MRI BRAIN WITHOUT CONTRAST INDICATION / CLINICAL INFORMATION: Rule out mets. Possible esophageal mass. TECHNIQUE: Multiplanar, multisequence MR images of the brain were obtained. COMPARISON: None available. FINDINGS: BRAIN / INTRACRANIAL CONTENTS: No acute ischemia, acute hemorrhage, mass effect, midline shift, or hy drocephalus. There is chronic encephalomalacia in the anterior left frontal lobe which may be from p revious infarct or previous trauma. There is confluent FLAIR hyperintensity in the cerebral white mat ter with associated volume loss suggesting chronic small vessel ischemic change. There is no evidence of mass lesion. CRANIOCERVICAL JUNCTION: No significant abnormality. VASCULAR FLOW-VOIDS: No significant abnormality. ORBITS: No acute findings. SINUSES / MASTOIDS: There is near complete opacification with mucosal thickening in the left maxillar y sinus with expansion of the left maxillary sinus. ADDITIONAL FINDINGS: None. IMPRESSION: 1. No findings to suggest metastatic disease on this noncontrast MRI. 2. Chronic encephalomalacia in the anterior left frontal lobe likely from previous trauma or infarct. Signer Name: Singh Nix MD Signed: 11/22/2020 12:43 PM Workstation Name: [id number]
[2020-11-22] MEDS: ENOXAPARIN 40 MG/0.4 ML INJ SUB-Q SCH (23:07)
[2020-11-23] MEDS: MULTIVITAMINS ,THERAPEUTIC TAB PO SCH (00:34)
[2020-11-23] MEDS: INSULIN REGULAR, HUMAN 100 UNITS/1 ML SUB-Q SCH ×4 (00:34→19:15)
--- NOTE | 2020-11-23 09:30 | Consultation ---
History of Present Illness - Reason for Consult Consult date: 11/23/20 Reason for consult: MHE Requesting physician: ANGEL TOBAR - Chief Complaint Chief complaint: Seizures - History of Present Psychiatric Illness Per ED Provider: Patient presents emergency department for evaluation of altered mental status noted by family this morning. Per EMS, medics were called to evaluate patient last night, patient found to be hypoglycemic, refused further care after being treated with dextrose. Family called EMS today suspicious of cardiac arrest, patient found with contractions of extremities, nonresponsive, brought to emergency department as possible code stroke. Patient given Narcan in route to the emergency department without change in status. Patient arrives unresponsive, consequently requiring my immediate attention. PSYCH HPI Patient is a 70 year AA male with no significant past psychiatric history, presented to ED with complaints of AMS per EMS. Patient is reported to have past medical history of Dementia and other medical comorbidity found to have decreased cognition by family members and was on code stroke. On exam, patient awake but not communicative and barely alert to any type of stimulus. Unable to conduct an interview. REVIEW OF SYSTEMS ROS cannot be reliably obtained from the patient due to reduced cognition MENTAL STATUS EXAMINATION General Appearance and Behavior: Age appropriate, good hygiene, wearing appropriate clothes, good eye contact, uncooperative with questioning. Cooperation: Withdrawn Psychomotor Behavior: unremarkable and within normal limits Mood: Neutral Affect and affective range: Flat Thought Process:N/A Thought Content: N/A Speech: Normal volume, Regular rate and rhythm Intellectual Functioning: N/A Suicidal Ideation: N/A l Homicidal Ideation: N/A Impulse Control: Impaired Insight and Judgment: Impaired Memory: N/A Attention: Normal, Orientation: Alert Assessment and Plan - Psychiatric problem (1) Encephalopathy Current Visit: Yes Status: Acute G93 Treatment Plan Pt with history of Dementia, presents with reduced cognition, complete flat affect and not audible. No acute psychiatric benefit seen with medication at this time. Will defer further management to medical team. Management deferred to medical Hold off all psychiatric medications until improvement in cognition, if any. MEDICATIONS: Risks, benefits and alternatives of medications discussed with the patient, questions answered and consent obtained from patient. PSYCHOTHERAPY: Supportive psychotherapy provided MEDICAL: Per primary team DELIRIUM PRECAUTIONS: Please re-orient patient frequently, keep lights on during the day, and minimize benzodiazepines and opiates as these medications could worsen patient's confusion. 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 Case discussed with Dr. Mena who agrees with current disposition LEGAL STATUS: FOLLOW-UP: Will sign off Thank you for the consult. Please contact with any questions and/or concerns. Medications and Allergies Allergies Allergy/AdvReac Type Severity Reaction Status Date / Time No Known Allergies Allergy Verified 02/24/18 09:21 Home Medications Medication Instructions Recorded Confirmed Last Taken Type PHENobarbitaL [PHENobarbital] 15 mg PO BID 30 Days #60 tablet 05/30/20 11/12/20 Unknown Rx levETIRAcetam [Keppra TAB] 500 mg PO BID #60 tablet 05/30/20 08/12/20 Unknown Rx Vitamin B-1 100 mg PO DAILY 08/12/20 11/12/20 Unknown History levETIRAcetam [Keppra TAB] 1,000 mg PO BID 30 Days #60 tab 08/12/20 Unknown Rx levETIRAcetam [Keppra TAB] 1,000 mg PO BID 90 Days #180 tab 10/01/20 Unknown Rx haloperidoL [Haloperidol] 5 mg PO ONCE 11/12/20 11/12/20 Unknown History Active Meds: Active Medications Acetaminophen (Acetaminophen 325 Mg Tab) 650 mg PO Q4H PRN PRN Reason: Pain MILD(1-3)/Fever >100.5/BAR Albuterol (Albuterol 2.5 Mg/3 Ml Nebu) 2.5 mg IH Q3HRT PRN PRN Reason: Wheezing Lipase/Protease/Amylase (Lipase 10,500/Protease 25,000/Amylase 43,750 (Units) Dr Rangel) 1 each FEEDTUBE PRN PRN PRN Reason: For Clogged Feeding Tube Dextrose (Dextrose 50% In Water (25gm) 50 Ml Syringe) 50 ml IV ONCE PRN; Protocol PRN Reason: Hypoglycemia Last Admin: 11/17/20 23:29 Dose: 10 ml Documented by: Enoxaparin Sodium (Enoxaparin 40 Mg/0.4 Ml Inj) 40 mg SUB-Q QDAY@2200 [facility]; Protocol Last Admin: 11/22/20 23:07 Dose: Not Given Documented by: Famotidine (Famotidine 20 Mg Tab) 20 mg FEEDTUBE BID [facility] Last Admin: 11/22/20 23:07 Dose: Not Given Documented by: Folic Acid (Folic Acid 1 Mg Tab) 1 mg PO DAILY [facility] Last Admin: 11/22/20 10:33 Dose: Not Given Documented by: Hydralazine HCl (Hydralazine 20 Mg/1 Ml Inj) 10 mg IV Q4H PRN PRN Reason: Hypertension Last Admin: 11/14/20 07:30 Dose: 10 mg Documented by: Hydrophilic Ointment (Lip Therapy Vaseline) 1 applic TP Q2HR PRN PRN Reason: Dry Lips Propofol (Diprivan 10 Mg/Ml) 1,000 mg in 100 mls @ 2.1 mls/hr IV TITR KIRK; Protocol Last Titration: 11/19/20 10:10 Dose: 0 mcg/kg/min, 0 mls/hr Documented by: Dextrose/Sodium Chloride (D5/0.45ns) 1,000 mls @ 75 mls/hr IV DIRECT [facility] Last Admin: 11/21/20 17:01 Dose: 75 mls/hr Documented by: Levetiracetam 1,000 mg/ (Dextrose) 110 mls @ 400 mls/hr IV Q12H [facility] Last Admin: 11/22/20 23:06 Dose: 400 mls/hr Documented by: Insulin Human Regular (Insulin Regular, Human 100 Units/1 Ml) 0 units SUB-Q Q6H [facility]; Protocol Last Admin: 11/23/20 08:33 Dose: Not Given Documented by: Metoclopramide HCl (Metoclopramide 10 Mg/2 Ml Inj) 10 mg IV Q6H PRN PRN Reason: Nausea And Vomiting Multi-Ingred Cream/Lotion/Oil/Oint (Mineral Oil/Petrolatum, White Ophth Oint 3.5 Gm) 1 applic OU Q4HR PRN PRN Reason: Dry Eye(s) Multivitamins (Multivitamins ,Therapeutic Tab) 1 each PO Q24H [facility] Last Admin: 11/23/20 00:34 Dose: Not Given Documented by: Naloxone HCl (Naloxone 0.4 Mg/1 Ml Inj) 2 mg IV Q2MIN PRN PRN Reason: Res Rate </= 8 or 02 SAT < 92% Ondansetron HCl (Ondansetron 4 Mg/2 Ml Inj) 4 mg IV Q3H PRN PRN Reason: Nausea And Vomiting Phenobarbital (Phenobarbital 15 Mg Tab) 15 mg PO BID [facility] Last Admin: 11/22/20 23:07 Dose: Not Given Documented by: Simple Syrup (Simple Syrup 15 Ml) 15 ml FEEDTUBE PRN PRN PRN Reason: Hypoglycemia Simple Syrup (Simple Syrup 15 Ml) 30 ml FEEDTUBE PRN PRN PRN Reason: Hypoglycemia Sodium Bicarbonate (Sodium Bicarbonate 325 Mg Tab) 325 mg FEEDTUBE PRN PRN PRN Reason: For Clogged Feeding Tube Sodium Chloride (Sodium Chloride 0.9% 10 Ml Flush Syringe) 10 ml IV BID [facility] Last Admin: 11/22/20 23:07 Dose: 10 ml Documented by: Sodium Chloride (Sodium Chloride 0.9% 10 Ml Flush Syringe) 10 ml IV PRN PRN PRN Reason: LINE FLUSH Thiamine HCl (Thiamine 100 Mg Tab) 100 mg PO QDAY [facility] Last Admin: 11/22/20 10:33 Dose: Not Given Documented by: Mental Status Exam - Vital signs Last Vital Signs Temp 98.1 F 11/23/20 04:40 Pulse 57 L 11/23/20 05:53 Resp 18 11/23/20 05:53 BP 159/76 11/23/20 05:53 Pulse Ox 98 11/23/20 09:16 Results Result Diagrams: 11/18/20 05:44 11/18/20 05:44 All other labs normal.
--- NOTE | 2020-11-23 10:48 | Progress Note ---
Assessment and Plan Assessment and plan: #Acute hypoxic respiratory failure Now extubated Improved #Seizure disorder Continue antiseizure medications No further seizures CT head and brain MRI showed no etiology for seizure #SIRS Etiology unknown-urinalysis negative, chest x-ray also negative COVID-19 test negative Discontinued antibiotics #? Mass around the oropharynx This was seen during bronchoscopy as per pulmonary CT neck was negative for any neck mass. Oncology recommendations appreciated -may need radiation of the neck tumor if th is is the casee #Dysphagia Plan for EGD and possible PEG placement GI on board #DVT prophylaxis-SCDs, Lovenox #GI prophylaxis-PPIs #Disposition-likely placement History Interval history: This is a 60-year-old male with seizure disorder current alcohol and tobacco abuse presents to the hospital on 11/11 after being found unresponsive. On arrival of EMS patient was found to be hypoglycemic and given IV dextrose after which he recovered and refused further care. EMS was called again by family after the patient was found unresponsive and was given Narcan with no change. Patient was noted to have seizure activity and given 7 mg IV Ativan total incl uding 3 from EMS. Patient was loaded with Keppra 2 g and was intubated for airway protection. Patient was found to have metabolic acidosis and hypoglycemia on BMP. Patient was found to be hypothermic and hypertensive in the emergency department. Patient's UDS was positive for barbiturates. Patient was admitted to the hospital service for further work-up with consults to [facility] and neurology. 11/12. Patient remains intubated. On Keppra and phenobarbital. Neurology evaluation appreciated. EEG ordered. May need transfer to tertiary care for continuous EEG pending EEG results. 11/13. Remains intubated and on antiseizure medications. EEG has been performed but results are pending. Neurology on board 11/14. Remains intubated and on antiseizure medications. EEG has been performed but results are pending. Neurology on board 11/15: EEG is consistent with significant encephalopathy and does not rule out the possibility of epilepsy, patient remains on mechanical ventilation with mini mal vent settings. No acute events reported overnight. 11/16: No acute events reported overnight, patient opens eyes spontaneously and withdraws to pain bilateral lower extremities. At the time my examination patient was on CMV 450/18/64/0.30 and has been started on a CPAP trial subsequently. No evidence of generalized seizures noted. Patient is a lui of the state 11/17: Patient was extubated today per [facility], no acute events reported overnight. Patient has a right sided gaze during my examination and was on CPAP 06/08 at 30% and he opens his eyes spontaneously. He does withdraw bilateral lower extremities to pain. His Keppra was decreased yesterday. ST evaluation pending 11/18: Follow-up EEG reading. Patient currently off sedation. Nursing to place Dobbhoff tube for feeding. Speech therapy to continue swallow evaluation. No new seizure activity. Continue phenobarbital and Keppra. Seizure precautions. Transfer to [facility] today. 11/19: Dobbhoff tube with removal difficulty yesterday. 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 CT scan of the chest revealed pulmonary nodule and lesion in the liver suggestive of metastatic disease. GI consultation pending. Patient was electively intubated yesterday for airway protection. Extubation today per pulmonary 11/20: Await speech therapy evaluation. Patient will likely need PEG tube placement. Consult GI for further evaluation. Oncology consultation for likely metastatic disease. 11/21: Await GI consultation. Appreciate oncology evaluation. 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 Check MRI brain to rule out brain metastasis. Poor prognosis. 11/22: GI recommends tissue diagnosis either with ENT involvement and evaluation of epiglottis mass with biopsy vs biopsy of the liver lesion. Follow-up with case management for obtaining consent for possible PEG tube placement 11/23. Brain MRI showed no brain metastasis. Plan for EGD as per GI. Patient will need possible ENT evaluation of mass with biopsy or biopsy of the liver lesion. Hospitalist Physical - Physical exam Narrative exam: VITAL SIGNS: Reviewed. GENERAL: Awake HEAD: No signs of head trauma. EYES: Pupils are equal. Extraocular motions intact. MOUTH: Oropharynx is normal. NECK: No adenopathy, no JVD. CHEST: Chest with diminished breath sounds bilaterally. No wheezes, rales, or rhonchi. CARDIAC: normal S1 and S2, without murmurs, gallops, or rubs. ABDOMEN: Soft, non tender and non distended. No rebound or guarding, and no masses palpated. Bowel Sounds normal. MUSCULOSKELETAL: No edema NEUROLOGIC EXAM: Awake but nonverbal SKIN: No obvious lesions - Constitutional Vitals: Temp Pulse Resp BP Pulse Ox 98.1 F 57 L 18 159/76 98 11/23/20 04:40 11/23/20 05:53 11/23/20 05:53 11/23/20 05:53 11/23/20 09:16 HEART Score - HEART Score Troponin: Troponin T < 0.010 ng/mL (0.00-0.029) 11/11/20 09:02 Results - Labs CBC & Chem 7: 11/23/20 15:24 11/23/20 15:24 Labs: Laboratory Last Values WBC 10.2 K/mm3 (4.5-11.0) 11/18/20 05:44 RBC 4.06 M/mm3 (3.65-5.03) 11/18/20 05:44 Hgb 11.6 gm/dl (11.8-15.2) L 11/18/20 05:44 Hct 35.1 % (35.5-45.6) L 11/18/20 05:44 MCV 86 fl (84-94) 11/18/20 05:44 MCH 29 pg (28-32) 11/18/20 05:44 MCHC 33 % (32-34) 11/18/20 05:44 RDW 16.1 % (13.2-15.2) H 11/18/20 05:44 Plt Count 228 K/mm3 (140-440) 11/18/20 05:44 Lymph % (Auto) 20.4 % (13.4-35.0) 11/18/20 05:44 [place] % (Auto) 10.4 % (0.0-7.3) H 11/18/20 05:44 Eos % (Auto) 2.5 % (0.0-4.3) 11/18/20 05:44 Baso % (Auto) 1.0 % (0.0-1.8) 11/18/20 05:44 Lymph # (Auto) 2.1 K/mm3 (1.2-5.4) 11/18/20 05:44 Clay # (Auto) 1.1 K/mm3 (0.0-0.8) H 11/18/20 05:44 Eos # (Auto) 0.3 K/mm3 (0.0-0.4) 11/18/20 05:44 Baso # (Auto) 0.1 K/mm3 (0.0-0.1) 11/18/20 05:44 Seg Neutrophils % 65.7 % (40.0-70.0) 11/18/20 05:44 Seg Neutrophils # 6.7 K/mm3 (1.8-7.7) 11/18/20 05:44 PT 11.5 Sec. (12.2-14.9) L 11/11/20 09:02 INR 0.86 (0.87-1.13) L 11/11/20 09:02 APTT 25.5 Sec. (24.2-36.6) 11/11/20 09:02 Thrombin Time 17.0 Sec. (15.1-19.6) 11/11/20 09:02 ABG pH 7.499 (7.320-7.450) H 11/17/20 11:40 POC ABG pCO2 36.3 mmHg (32.0-48.0) 11/17/20 11:40 ABG pCO2 33.9 mm Hg 11/11/20 10:45 POC ABG pO2 140.8 mmHg (83-108) H 11/17/20 11:40 ABG pO2 222.2 mm Hg (80.0-90.0) H 11/11/20 10:45 POC ABG HCO3 27.6 11/17/20 11:40 ABG HCO3 24.9 mmol/L (20.0-26.0) 11/11/20 10:45 ABG O2 Saturation 98.1 (0-100) 11/17/20 11:40 ABG O2 Content 19.4 (0.0-44) 11/11/20 10:45 POC ABG Base Excess 4.4 11/17/20 11:40 ABG Base Excess 1.9 mmol/L (-2.0-3.0) 11/11/20 10:45 ABG Hemoglobin 11.8 (12.0-17.5) L 11/17/20 11:40 ABG Oxyhemoglobin 97.4 (94-98) 11/17/20 11:40 ABG Carboxyhemoglobin 0.6 % (0.0-5.0) 11/11/20 10:45 ABG Methemoglobin 0.3 (0.0-1.5) 11/17/20 11:40 ABG Sodium 135.1 mmol/L (136.0-145.0) L 11/17/20 11:40 ABG Potassium 4.2 mmol/L (3.40-4.50) 11/17/20 11:40 ABG Chloride 102.0 mmol/L (98-107) 11/17/20 11:40 ABG Glucose 110 mg/dL (65-95) H 11/17/20 11:40 Oxyhemoglobin 98.5 % (95.0-99.0) 11/11/20 10:45 Carboxyhemoglobin 0.4 (0.5-1.5) L 11/17/20 11:40 FiO2 21 % 11/11/20 10:45 FiO2 % 30 11/17/20 11:40 Sodium 134 mmol/L (137-145) L 11/18/20 05:44 Potassium 4.3 mmol/L (3.6-5.0) 11/18/20 05:44 Chloride 96.3 mmol/L (98-107) L 11/18/20 05:44 Carbon Dioxide 31 mmol/L (22-30) H 11/18/20 05:44 Anion Gap 11 mmol/L 11/18/20 05:44 BUN 13 mg/dL (9-20) 11/18/20 05:44 Creatinine 0.5 mg/dL (0.8-1.3) L 11/18/20 05:44 Estimated GFR > 60 ml/min 11/18/20 05:44 BUN/Creatinine Ratio 26 % 11/18/20 05:44 Glucose 99 mg/dL (75-100) 11/18/20 05:44 POC Glucose 92 mg/dL (70-105) 11/23/20 00:44 Hemoglobin A1c 5.4 % (4-6) 11/12/20 07:26 Calcium 8.8 mg/dL (8.4-10.2) 11/18/20 05:44 Magnesium 2.00 mg/dL (1.7-2.3) 11/11/20 09:02 Total Bilirubin 0.40 mg/dL (0.1-1.2) 11/18/20 05:44 AST 36 units/L (5-40) 11/18/20 05:44 ALT 32 units/L (7-56) 11/18/20 05:44 Alkaline Phosphatase 80 units/L (35-129) 11/18/20 05:44 Ammonia 29.0 umol/L (25-60) 11/12/20 08:47 Total Creatine Kinase 169 units/L (55-170) 11/11/20 09:02 CK-MB (CK-2) 6.6 ng/mL (0.0-4.0) H 11/11/20 09:02 CK-MB (CK-2) Rel Index 3.9 (0-4) 11/11/20 09:02 Troponin T < 0.010 ng/mL (0.00-0.029) 11/11/20 09:02 Total Protein 6.3 g/dL (6.3-8.2) 11/18/20 05:44 Albumin 2.5 g/dL (3.9-5) L 11/18/20 05:44 Albumin/Globulin Ratio 0.7 % 11/18/20 05:44 Arterial Blood Glucose 110 mg/dL (65-95) H 11/17/20 11:40 Arterial Blood Ionized Calcium 4.9 mg/dL (4.6-5.3) 11/17/20 11:40 Urine Color Yellow (Yellow) 11/11/20 20:27 Urine Turbidity Clear (Clear) 11/11/20 20: Urine pH 6.0 (5.0-7.0) 11/11/20 20:27 Ur Specific [place] 1.045 (1.003-1.030) H 11/11/20 20:27 Urine Protein 100 mg/dl mg/dL (Negative) 11/11/20 20:27 Urine Glucose (UA) Neg mg/dL (Negative) 11/11/20 20:27 Urine Ketones Neg mg/dL (Negative) 11/11/20 20:27 Urine Blood Sm (Negative) 11/11/20 20:27 Urine Nitrite Neg (Negative) 11/11/20 20: Urine Bilirubin Neg (Negative) 11/11/20 20:27 Urine Urobilinogen 4.0 mg/dL (<2.0) 11/11/20 20:27 Ur Leukocyte Esterase Neg (Negative) 11/11/20 20:27 Urine WBC (Auto) 1.0 /HPF (0.0-6.0) 11/11/20 20:27 Urine RBC (Auto) 4.0 /HPF (0.0-6.0) 11/11/20 20:27 U Epithel Cells (Auto) 12.0 /HPF (0-13.0) 11/11/20 20:27 Urine Bacteria (Auto) 1+ /HPF (Negative) 11/11/20 20:27 Urine Mucus Few /HPF 11/11/20 20:27 Urine Opiates Screen Negative 11/11/20 20:27 Urine Methadone Screen Negative 11/11/20 20:27 Ur Barbiturates Screen Positive 11/11/20 20:27 Ur Phencyclidine Scrn Negative 11/11/20 20: Ur Amphetamines Screen Negative 11/11/20 20:27 Phenobarbital 4.3 ug/mL (15.0-40.0) L 11/12/20 08:47 U Benzodiazepines Scrn Negative 11/11/20 20: Urine Cocaine Screen Negative 11/11/20 20:27 U Marijuana (THC) Screen Negative 11/11/20 20:27 Drugs of Abuse Note Disclamer 11/11/20 20:27 Plasma/Serum Alcohol < 0.01 % (0-0.07) 11/11/20 09:02 Coronavirus (PCR) Negative (Negative) 11/12/20 08:00 [place]/IV: Voiding Method Incontinent Active Medications - Current Medications Current Medications: Generic Name Dose Route Start Last Admin Trade Name Freq PRN Reason Stop Dose Admin Acetaminophen 650 mg 11/11/20 22:58 Acetaminophen 325 Mg Tab PO Q4H PRN Pain MILD(1-3)/Fever >100.5/BAR Albuterol 2.5 mg 11/11/20 23:18 Albuterol 2.5 Mg/3 Ml Nebu IH Q3HRT PRN Wheezing Lipase/Protease/Amylase 1 each 11/12/20 12:00 Lipase 10,500/Protease 25,000/Amylase 43,750 (Units) Dr Rangel FEEDTUBE PRN PRN For Clogged Feeding Tube Dextrose 50 ml 11/11/20 22:11 11/17/20 23:29 Dextrose 50% In Water (25gm) 50 Ml Syringe IV 10 ml ONCE PRN Administration Hypoglycemia Protocol Enoxaparin Sodium 40 mg 11/12/20 22:00 11/22/20 23:07 Enoxaparin 40 Mg/0.4 Ml Inj SUB-Q Not Given QDAY@2200 [facility] Protocol Famotidine 20 mg 11/22/20 10:00 11/22/20 23:07 Famotidine 20 Mg Tab FEEDTUBE Not Given BID [facility] Folic Acid 1 mg 11/16/20 10:00 11/22/20 10:33 Folic Acid 1 Mg Tab PO Not Given DAILY [facility] Hydralazine HCl 10 mg 11/12/20 10:30 11/14/20 07:30 Hydralazine 20 Mg/1 Ml Inj IV 10 mg Q4H PRN Administration Hypertension Hydrophilic Ointment 1 applic 11/11/20 09:14 Lip Therapy Vaseline TP Q2HR PRN Dry Lips Propofol 1,000 mg in 100 mls @ 2.1 mls/hr 11/18/20 16:00 11/19/20 10:10 Diprivan 10 Mg/Ml IV 0 mcg/kg/min TITR KIRK 0 mls/hr Titration Protocol 5 MCG/KG/MIN Dextrose/Sodium Chloride 1,000 mls @ 75 mls/hr 11/21/20 15:00 11/21/20 17:01 D5/0.45ns IV 75 mls/hr DIRECT [facility] Administration Levetiracetam 1,000 mg/ 110 mls @ 400 mls/hr 11/22/20 11:00 11/22/20 23:06 Dextrose IV 400 mls/hr Q12H [facility] Administration Insulin Human Regular 0 units 11/12/20 18:00 11/23/20 08:33 Insulin Regular, Human 100 Units/1 Ml SUB-Q Not Given Q6H [facility] Protocol Metoclopramide HCl 10 mg 11/11/20 22:58 Metoclopramide 10 Mg/2 Ml Inj IV Q6H PRN Nausea And Vomiting Multi-Ingred Cream/Lotion/Oil/Oint 1 applic 11/11/20 09:14 Mineral Oil/Petrolatum, White Ophth Oint 3.5 Gm OU Q4HR PRN Dry Eye(s) Multivitamins 1 each 11/13/20 00:00 11/23/20 00:34 Multivitamins ,Therapeutic Tab PO Not Given Q24H [facility] Naloxone HCl 2 mg 11/11/20 08:33 Naloxone 0.4 Mg/1 Ml Inj IV Q2MIN PRN Res Rate </= 8 or 02 SAT < 92% Ondansetron HCl 4 mg 11/11/20 22:58 Ondansetron 4 Mg/2 Ml Inj IV Q3H PRN Nausea And Vomiting Phenobarbital 15 mg 11/11/20 23:45 11/22/20 23:07 Phenobarbital 15 Mg Tab PO Not Given BID [facility] Simple Syrup 15 ml 11/12/20 12:00 Simple Syrup 15 Ml FEEDTUBE PRN PRN Hypoglycemia Simple Syrup 30 ml 11/12/20 12:00 Simple Syrup 15 Ml FEEDTUBE PRN PRN Hypoglycemia Sodium Bicarbonate 325 mg 11/12/20 12:00 Sodium Bicarbonate 325 Mg Tab FEEDTUBE PRN PRN For Clogged Feeding Tube Sodium Chloride 10 ml 11/11/20 23:00 11/22/20 23:07 Sodium Chloride 0.9% 10 Ml Flush Syringe IV 10 ml BID [facility] Administration Sodium Chloride 10 ml 11/11/20 22:58 Sodium Chloride 0.9% 10 Ml Flush Syringe IV PRN PRN LINE FLUSH Thiamine HCl 100 mg 11/16/20 10:00 11/22/20 10:33 Thiamine 100 Mg Tab PO Not Given QDAY [facility] Nutrition/Malnutrition Assess - Dietary Evaluation Nutrition/Malnutrition Findings: Nutrition Notes Start: 11/12/20 08:26 Freq: Status: Active Protocol: Document 11/22/20 12:13 BRANT (Rec: 11/22/20 12:16 [id number]) Nutrition Notes Initial or Follow up Brief Note Current Diagnosis Respiratory Failure,Stroke Other Pertinent Diagnosis Seizures Current Diet Jevity 1.2 at 60 ml/hr Subjective/Other Information FU for plan of care. Pt waiting [employer] consult. Per chart , pt may have PEG placed tommorrow pending [employer] recommendations. TF not running d/t inability to place dobhoff related to esophageal mass. Nutrition Intervention Follow-Up By: 11/24/20 Additional Comments FU for [employer] recommendations and plan of care
[2020-11-23] MEDS: FAMOTIDINE 20 MG TAB FEEDTUBE SCH (11:30)
[2020-11-23] MEDS: THIAMINE 100 MG TAB PO SCH (11:30)
[2020-11-23] MEDS: levETIRAcetam 1,000 MG in DEXTROSE 5% IN WATER 100 ML IV SCH ×3 (11:30→23:58)
[2020-11-23] MEDS: FOLIC ACID 1 MG TAB PO SCH (11:30)
[2020-11-23] MEDS: PHENobarbital 15 MG TAB PO SCH ×2 (11:30→21:28)
[2020-11-23] MEDS ORDERED: SODIUM CHLORIDE 0.9% 1000 ML 1,000 ML IV SCH (12:15)
--- NOTE | 2020-11-23 12:58 | Anesthesia Day of Surgery ---
Anesthesia Day of Surgery - Day of Surgery Patient Examined: Yes Patient H&P Reviewed: Yes Patient is NPO: Yes
--- NOTE | 2020-11-23 12:58 | Anesthesia Consultation ---
Anesthesia Consult and Med Hx - Airway Intubation Access Assessment: Probably Good (uncooperative with airway exam but intubated x2 this admission without report of difficult airway) - Pre-Operative Health Status ASA Pre-Surgery Classification: ASA3 Proposed Anesthetic Plan: MAC - Pulmonary Hx Smoking: Yes Hx Respiratory Symptoms: Yes (initially intubated for airway protection; currently 2L NC) - Cardiovascular System Hx Hypertension: No - Central Nervous System Hx Seizures: Yes Hx Psychiatric Problems: Yes (altered mental status) - Endocrine Hx Renal Disease: No Hx Liver Disease: No Hx Insulin Dependent Diabetes: No Hx Non-Insulin Dependent Diabetes: No Hx Thyroid Disease: No - Hematic Hx Anemia: Yes - Other Systems Hx Alcohol Use: Yes Hx Obesity: No - Additional Comments Anesthesia Medical History Comments: Patient awake but does not respond to questions or follow commands. Medical hx obtained from chart review. Anesthesia consent obtained from court appointed guardian.
[2020-11-23] MEDS ORDERED: ceFAZolin/Water 2 GM/20 ML 2 GM/20 ML SYRINGE IV ONE (12:59)
[2020-11-23 13:33] LABS: Blood Urea Nitrogen 9 mg/dL (9-20); Calcium 9.5 mg/dL (8.4-10.2); Hemolysis Index 20
[2020-11-23 13:44] LABS: BUN/Creatinine Ratio 15
[2020-11-23] MEDS ORDERED: MIDAZOLAM 2 MG/2 ML INJ ONE (13:48)
[2020-11-23] MEDS ORDERED: fentaNYL 100 MCG/2 ML INJ ONE (13:49)
[2020-11-23] MEDS ORDERED: propofoL 200 MG/20 ML VIAL IV ONE (13:51)
[2020-11-23] MEDS ORDERED: ePHEDrine SULFATE 50 MG/1 ML INJ ONE (13:59)
--- NOTE | 2020-11-23 14:11 | Post Operative Note ---
Pre-op diagnosis: Neurogenic Dysphagia Post-op diagnosis: same Findings: 1. Small HH, otherwise normal UGI tract - Successful 20Fr Pull-type Peg placed 2cm below LSB; external bumper at 4cm 2. No gross mass seen in oropharynx, but trauma (?from Dobhoff placement) noted Procedure: EGD with PEG placement Anesthesia: MAC Surgeon: AMANDO BARRAGAN Estimated blood loss: minimal Pathology: none Specimen disposition: other (N/A) Condition: stable Disposition: floor (Recs: 1. OK to continue ASA and subcut heparin. 2. OK to use PEG in 4 hours. 3. Will loosen bumper tomorrow prior to discharge.)
--- NOTE | 2020-11-23 14:24 | Operative Report ---
ENDOSCOPY DOCUMENT PROCEDURE PERFORMED: Esophagogastroduodenoscopy with percutaneous gastrostomy tube placement. PREOPERATIVE DIAGNOSIS: Neurogenic dysphagia. POSTOPERATIVE DIAGNOSES: Neurogenic dysphagia, status post gastrostomy tube placement. ENDOSCOPIST: Figueroa Green MD INSTRUMENT: Olympus video endoscope. MEDICATIONS: MAC anesthesia by [facility] as well as Ancef 2 grams, given before the start of the procedure. COMPLICATIONS: No apparent complications. ESTIMATED BLOOD LOSS: Minimal. SPECIMENS: None. IMPLANTS: A 20-Pashto pull-type gastrostomy tube placed in the body of the stomach during this procedure. ASSISTANTS: None. CONDITION AT COMPLETION: Stable. TECHNIQUE: The patient's personal guardian was informed of the risks and benefits of the procedure. The patient was unable to provide consent due to mental status. After consent was obtained, the patient was placed in the supine position. The above sedative medications were given. His vital signs remained stable throughout the procedure. The instrument was advanced from the mouth to the second portion of the duodenum under direct visualization. At that point, the bowel was insufflated and the endoscope was withdrawn into the body of the stomach. The bowel was insufflated further and a good red light reflex and indentation was seen in an area 2 cm below the left sternal border. This area was sterilely draped and prepped. Local anesthesia was provided by dilute lidocaine; no insufflation of air was seen in the syringe until passage into the gastric lumen. A 20-Pashto pull-type gastrostomy tube was placed into the body of the stomach and the external bumper was fixed at 4 cm. The procedure was then terminated. FINDINGS: 1. Small hiatal hernia, otherwise normal upper GI tract. A. Successful 20-Pashto pull-type gastrostomy tube placed 2 cm below the left sternal border; the external bumper was fixed at 4 cm. 2. No gross mass was seen in the oropharynx, but there was trauma seen, likely from prior Dobbhoff tube placement. RECOMMENDATIONS: 1. To continue aspirin and subcutaneous heparin. 2. Okay to use the gastrostomy tube in 4 hours. 3. We will loosen the bumper tomorrow prior to discharge. JOB# [id number] AGUS/NTS
--- NOTE | 2020-11-23 14:29 | Post Anesthesia Evaluation ---
- Post Anesthesia Evaluation Patient Participated: No (baseline mentation) Airway Patent: Yes Stable Respiratory Function: Yes Nausea/Vomiting: No Temp > 96.8F: Yes Pain Manageable: Yes Adequeate Hydration: Yes Anesthesia Complications: No
[2020-11-23 16:05] LABS: Blood Urea Nitrogen 9 mg/dL (9-20); Calcium 8.8 mg/dL (8.4-10.2); Hemolysis Index 190
[2020-11-23 16:06] LABS: BUN/Creatinine Ratio 13
[2020-11-23 16:38] LABS: Hematocrit 35.8 % (35.5-45.6); Hemoglobin 11.9 gm/dl (11.8-15.2); Mean Corpuscular HGB Conc 33 % (32-34); Mean Corpuscular Volume 85 fl (84-94); Red Blood Count 4.22 M/mm3 (3.65-5.03); Red Cell Distribution Width 15.6 % (13.2-15.2)
[2020-11-23 16:39] LABS: Platelet Count 346 K/mm3 (140-440)
[2020-11-23 18:02] LABS: Anisocytosis Few; Total Cells Counted 100
[2020-11-23] MEDS: ENOXAPARIN 40 MG/0.4 ML INJ SUB-Q SCH (21:28)
[2020-11-23] MEDS: SODIUM CHLORIDE 1 GM TAB PO SCH (21:29)
[2020-11-24] MEDS: INSULIN REGULAR, HUMAN 100 UNITS/1 ML SUB-Q SCH ×4 (00:22→18:39)
[2020-11-24] MEDS: MULTIVITAMINS ,THERAPEUTIC TAB PO SCH (00:22)
[2020-11-24] MEDS: D5W/0.45% NACL 1,000 ML IV SCH (05:42)
--- NOTE | 2020-11-24 09:57 | Gastroenterology Progress Note ---
Assessment and Plan - Patient Problems (1) Neurogenic dysphagia Current Visit: Yes Status: Acute Plan to address problem: - PEG placed 11/24 without obvious complication. - OK to titrate TF to goal. - We will sign off; please call if needed. Subjective Date of service: 11/24/20 Principal diagnosis: Neurogenic Dysphagia Interval history: The patient had no F/C overnight, and his TF were started without event. He has had no blood in his BMs. Objective - Constitutional Vitals: Temp Pulse Resp BP Pulse Ox 99.2 F 72 18 144/73 100 11/24/20 06:12 11/24/20 06:12 11/24/20 06:12 11/24/20 06:12 11/24/20 06:12 General appearance: no acute distress - Respiratory Respiratory effort: normal Respiratory: bilateral: CTA - Cardiovascular Rhythm: regular Heart Sounds: Present: S1 & S2 - Gastrointestinal General gastrointestinal: Present: soft, non-tender, non-distended, other (PEG bumper loosened to 5cm. C/D/I) - Labs CBC & Chem 7: 11/23/20 15:24 11/23/20 15:24 Labs: Laboratory Results - last 24 hr 11/23/20 11/23/20 11/23/20 12:00 13:10 15:24 WBC 13.3 H RBC 4.22 Hgb 11.9 Hct 35.8 MCV 85 MCH 28 MCHC 33 RDW 15.6 H Plt Count 346 Add Manual Diff Complete Total Counted 100 Seg Neuts % (Manual) 66.0 Lymphocytes % (Manual) 23.0 Monocytes % (Manual) 9.0 H Eosinophils % (Manual) 2.0 Nucleated RBC % Not Reportable Seg Neutrophils # Man 8.8 H Band Neutrophils # 0.0 Lymphocytes # (Manual) 3.1 Abs React Lymphs (Man) 0.0 Monocytes # (Manual) 1.2 H Eosinophils # (Manual) 0.3 Basophils # (Manual) 0.0 Metamyelocytes # 0.0 Myelocytes # 0.0 Promyelocytes # 0.0 Blast Cells # 0.0 WBC Morphology Not Reportable Hypersegmented Neuts Not Reportable Hyposegmented Neuts Not Reportable Hypogranular Neuts Not Reportable Smudge Cells Not Reportable Toxic Granulation Not Reportable Toxic Vacuolation Not Reportable Dohle Bodies Not Reportable Pelger-Huet Anomaly Not Reportable Fercho Rods Not Reportable Platelet Estimate Not Reportable Clumped Platelets Not Reportable Plt Clumps, EDTA Not Reportable Large Platelets Not Reportable Giant Platelets Not Reportable Platelet Satelliting Not Reportable Plt Morphology Comment Not Reportable RBC Morphology Not Reportable Dimorphic RBCs Not Reportable Polychromasia Not Reportable Hypochromasia Not Reportable Poikilocytosis Not Reportable Anisocytosis Few Microcytosis Not Reportable Macrocytosis Not Reportable Spherocytes Not Reportable Pappenheimer Bodies Not Reportable Sickle Cells Not Reportable Target Cells Not Reportable Tear Drop Cells Not Reportable Ovalocytes Not Reportable Helmet Cells Not Reportable [place] Bodies Not Reportable [place] Not Reportable Joni Cells Not Reportable Bite Cells Not Reportable Crenated Cell Not Reportable Elliptocytes Not Reportable Acanthocytes (Spur) Not Reportable Rouleaux Not Reportable Hemoglobin C Crystals Not Reportable Schistocytes Not Reportable Malaria parasites Not Reportable Jones Bodies Not Reportable Hem Pathologist Commnt No Sodium 132 L Potassium 4.1 Chloride 95.8 L Carbon Dioxide 31 H Anion Gap 9 BUN 9 Creatinine 0.6 L Estimated GFR > 60 BUN/Creatinine Ratio 15 Glucose 91 POC Glucose 83 Calcium 9.5 Coronavirus (PCR) 11/23/20 11/23/20 11/23/20 15:24 16:29 22:30 WBC RBC Hgb Hct MCV MCH MCHC RDW Plt Count Add Manual Diff Total Counted Seg Neuts % (Manual) Lymphocytes % (Manual) Monocytes % (Manual) Eosinophils % (Manual) Nucleated RBC % Seg Neutrophils # Man Band Neutrophils # Lymphocytes # (Manual) Abs React Lymphs (Man) Monocytes # (Manual) Eosinophils # (Manual) Basophils # (Manual) Metamyelocytes # Myelocytes # Promyelocytes # Blast Cells # WBC Morphology Hypersegmented Neuts Hyposegmented Neuts Hypogranular Neuts Smudge Cells Toxic Granulation Toxic Vacuolation Dohle Bodies Pelger-Huet Anomaly Fercho Rods Platelet Estimate Clumped Platelets Plt Clumps, EDTA Large Platelets Giant Platelets Platelet Satelliting Plt Morphology Comment RBC Morphology Dimorphic RBCs Polychromasia Hypochromasia Poikilocytosis Anisocytosis Microcytosis Macrocytosis Spherocytes Pappenheimer Bodies Sickle Cells Target Cells Tear Drop Cells Ovalocytes Helmet Cells [place] Bodies [place] Joni Cells Bite Cells Crenated Cell Elliptocytes Acanthocytes (Spur) Rouleaux Hemoglobin C Crystals Schistocytes Malaria parasites Jones Bodies Hem Pathologist Commnt Sodium 129 L Potassium 4.6 Chloride 95.5 L Carbon Dioxide 26 Anion Gap 12 BUN 9 Creatinine 0.7 L Estimated GFR > 60 BUN/Creatinine Ratio 13 Glucose 118 H POC Glucose 87 108 H Calcium 8.8 Coronavirus (PCR) 11/23/20 Unknown WBC RBC Hgb Hct MCV MCH MCHC RDW Plt Count Add Manual Diff Total Counted Seg Neuts % (Manual) Lymphocytes % (Manual) Monocytes % (Manual) Eosinophils % (Manual) Nucleated RBC % Seg Neutrophils # [place] Neutrophils # Lymphocytes # (Manual) Abs React Lymphs (Man) Monocytes # (Manual) Eosinophils # (Manual) Basophils # (Manual) Metamyelocytes # Myelocytes # Promyelocytes # Blast Cells # WBC Morphology Hypersegmented Neuts Hyposegmented Neuts Hypogranular Neuts Smudge Cells Toxic Granulation Toxic Vacuolation Dohle Bodies Pelger-Huet Anomaly Fercho Rods Platelet Estimate Clumped Platelets Plt Clumps, EDTA Large Platelets Giant Platelets Platelet Satelliting Plt Morphology Comment RBC Morphology Dimorphic RBCs Polychromasia Hypochromasia Poikilocytosis Anisocytosis Microcytosis Macrocytosis Spherocytes Pappenheimer Bodies Sickle Cells Target Cells Tear Drop Cells Ovalocytes Helmet Cells [place] Bodies [place] Cells Bite Cells Crenated Cell Elliptocytes Acanthocytes (Spur) Rouleaux Hemoglobin C Crystals Schistocytes Malaria parasites Jones Bodies Hem Pathologist Commnt Sodium Potassium Chloride Carbon Dioxide Anion Gap BUN Creatinine Estimated GFR BUN/Creatinine Ratio Glucose POC Glucose Calcium Coronavirus (PCR) Negative
--- NOTE | 2020-11-24 10:26 | Progress Note ---
Assessment and Plan Assessment and plan: #Acute hypoxic respiratory failure Now extubated Improved. Now on 2-1/2 L of oxygen #Seizure disorder Continue antiseizure medications No further seizures CT head and brain MRI showed no etiology for seizure #SIRS Etiology unknown-urinalysis negative, chest x-ray also negative COVID-19 test negative Discontinued antibiotics #? Mass around the oropharynx This was seen during bronchoscopy as per pulmonary CT neck was negative for any neck mass. GI evaluation with EGD showed no mass in the oropharynx. #Liver lesion, lung nodule Possible metastatic disease GI following Pulmonology following #Dysphagia Plan for EGD and possible PEG placement GI on board #DVT prophylaxis-SCDs, Lovenox #GI prophylaxis-PPIs #Disposition-likely placement History Interval history: This is a 60-year-old male with seizure disorder current alcohol and tobacco abuse presents to the hospital on 11/11 after being found unresponsive. On arrival of EMS patient was found to be hypoglycemic and given IV dextrose after which he recovered and refused further care. EMS was called again by family after the patient was found unresponsive and was given Narcan with no change. Patient was noted to have seizure activity and given 7 mg IV Ativan total including 3 from EMS. Patient was loaded with Keppra 2 g and was intubated for airway protection. Patient was found to have metabolic acidosis and hypoglycemia on BMP. Patient was found to be hypothermic and hypertensive in the emergency department. Patient's UDS was positive for barbiturates. Patient was admitted to the hospital service for further work-up with consults to [facility] and neurology. 11/12. Patient remains intubated. On Keppra and phenobarbital. Neurology evaluation appreciated. EEG ordered. May need transfer to tertiary care for continuous EEG pending EEG results. 11/13. Remains intubated and on antiseizure medications. EEG has been performed but results are pending. Neurology on board 11/14. Remains intubated and on antiseizure medications. EEG has been performed but results are pending. Neurology on board 11/15: EEG is consistent with significant encephalopathy and does not rule out t he possibility of epilepsy, patient remains on mechanical ventilation with minimal vent settings. No acute events reported overnight. 11/16: No acute events reported overnight, patient opens eyes spontaneously and withdraws to pain bilateral lower extremities. At the time my examination patient was on CMV 450/18/64/0.30 and has been started on a CPAP trial subsequently. No evidence of generalized seizures noted. Patient is a lui of the state 11/17: Patient was extubated today per CCM, no acute events reported overnight. Patient has a right sided gaze during my examination and was on CPAP 10/ at 30% and he opens his eyes spontaneously. He does withdraw bilateral lower extremities to pain. His Keppra was decreased yesterday. ST evaluation pending 11/18: Follow-up EEG reading. Patient currently off sedation. Nursing to place Dobbhoff tube for feeding. Speech therapy to continue swallow evaluation. No new seizure activity. Continue phenobarbital and Keppra. Seizure precautions. Transfer to [facility] today. 11/19: Dobbhoff tube with removal difficulty yesterday. 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 CT scan of the chest revealed pulmonary nodule and lesion in the liver suggestive of metastatic disease. GI consultation pending. Patient was electively intubated yesterday for airway protection. Extubation today per pulmonary 11/20: Await speech therapy evaluation. Patient will likely need PEG tube placement. Consult GI for further evaluation. Oncology consultation for likely metastatic disease. 11/21: Await GI consultation. Appreciate oncology evaluation. 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 Check MRI brain to rule out brain metastasis. Poor prognosis. 11/22: GI recommends tissue diagnosis either with ENT involvement and evaluation of epiglottis mass with biopsy vs biopsy of the liver lesion. Follow-up with case management for obtaining consent for possible PEG tube placement 11/23. Brain MRI showed no brain metastasis. Plan for EGD as per GI. Patient will need possible ENT evaluation of mass with biopsy or biopsy of the liver l esion. 11/24. EGD shows no mass in the oropharynx. PEG was placed during EGD and patient has been started on tube feeds. He will need placement to a intermediate facility and has been accepted at some facilities. COVID-19 test is negative. manager generation trying to arrange for further paperwork prior to discharge. Hospitalist Physical - Physical exam Narrative exam: VITAL SIGNS: Reviewed. GENERAL: Awake HEAD: No signs of head trauma. EYES: Pupils are equal. Extraocular motions intact. MOUTH: Oropharynx is normal. NECK: No adenopathy, no JVD. CHEST: Chest with diminished breath sounds bilaterally. No wheezes, rales, or rhonchi. CARDIAC: normal S1 and S2, without murmurs, gallops, or rubs. ABDOMEN: Soft, non tender and non distended. No rebound or guarding, and no masses palpated. Bowel Sounds normal. MUSCULOSKELETAL: No edema NEUROLOGIC EXAM: Awake but nonverbal SKIN: No obvious lesions - Constitutional Vitals: Temp Pulse Resp BP Pulse Ox 99.2 F 72 18 144/73 100 11/24/20 06:12 11/24/20 06:12 11/24/20 06:12 11/24/20 06:12 11/24/20 06:12 General appearance: Present: no acute distress, other (unresponsive) HEART Score - HEART Score Troponin: Troponin T < 0.010 ng/mL (0.00-0.029) 11/11/20 09:02 Results - Labs CBC & Chem 7: 11/23/20 15:24 11/23/20 15:24 Labs: Laboratory Last Values WBC 13.3 K/mm3 (4.5-11.0) H 11/23/20 15:24 RBC 4.22 M/mm3 (3.65-5.03) 11/23/20 15:24 Hgb 11.9 gm/dl (11.8-15.2) 11/23/20 15:24 Hct 35.8 % (35.5-45.6) 11/23/20 15:24 MCV 85 fl (84-94) 11/23/20 15:24 MCH 28 pg (28-32) 11/23/20 15:24 MCHC 33 % (32-34) 11/23/20 15:24 RDW 15.6 % (13.2-15.2) H 11/23/20 15:24 Plt Count 346 K/mm3 (140-440) 11/23/20 15:24 Lymph % (Auto) 20.4 % (13.4-35.0) 11/18/20 05:44 [place] % (Auto) 10.4 % (0.0-7.3) H 11/18/20 05:44 Eos % (Auto) 2.5 % (0.0-4.3) 11/18/20 05:44 Baso % (Auto) 1.0 % (0.0-1.8) 11/18/20 05:44 Lymph # (Auto) 2.1 K/mm3 (1.2-5.4) 11/18/20 05:44 [place] # (Auto) 1.1 K/mm3 (0.0-0.8) H 11/18/20 05:44 Eos # (Auto) 0.3 K/mm3 (0.0-0.4) 11/18/20 05:44 Baso # (Auto) 0.1 K/mm3 (0.0-0.1) 11/18/20 05:44 Add Manual Diff Complete 11/23/20 15:24 Total Counted 100 11/23/20 15:24 Seg Neutrophils % 65.7 % (40.0-70.0) 11/18/20 05:44 Seg Neuts % (Manual) 66.0 % (40.0-70.0) 11/23/20 15:24 Lymphocytes % (Manual) 23.0 % (13.4-35.0) 11/23/20 15:24 Monocytes % (Manual) 9.0 % (0.0-7.3) H 11/23/20 15:24 Eosinophils % (Manual) 2.0 % (0.0-4.3) 11/23/20 15:24 Nucleated RBC % Not Reportable 11/23/20 15:24 Seg Neutrophils # 6.7 K/mm3 (1.8-7.7) 11/18/20 05:44 Seg Neutrophils # Man 8.8 K/mm3 (1.8-7.7) H 11/23/20 15:24 Band Neutrophils # 0.0 K/mm3 11/23/20 15:24 Lymphocytes # (Manual) 3.1 K/mm3 (1.2-5.4) 11/23/20 15:24 Abs React Lymphs (Man) 0.0 K/mm3 11/23/20 15:24 Monocytes # (Manual) 1.2 K/mm3 (0.0-0.8) H 11/23/20 15:24 Eosinophils # (Manual) 0.3 K/mm3 (0.0-0.4) 11/23/20 15:24 Basophils # (Manual) 0.0 K/mm3 (0.0-0.1) 11/23/20 15:24 Metamyelocytes # 0.0 K/mm3 11/23/20 15:24 Myelocytes # 0.0 K/mm3 11/23/20 15:24 Promyelocytes # 0.0 K/mm3 11/23/20 15:24 Blast Cells # 0.0 K/mm3 11/23/20 15:24 WBC Morphology Not Reportable 11/23/20 15:24 Hypersegmented Neuts Not Reportable 11/23/20 15:24 Hyposegmented Neuts Not Reportable 11/23/20 15:24 Hypogranular Neuts Not Reportable 11/23/20 15:24 Smudge Cells Not Reportable 11/23/20 15:24 Toxic Granulation Not Reportable 11/23/20 15:24 Toxic Vacuolation Not Reportable 11/23/20 15:24 Dohle Bodies Not Reportable 11/23/20 15:24 Pelger-Huet Anomaly Not Reportable 11/23/20 15:24 Fercho Rods Not Reportable 11/23/20 15:24 Platelet Estimate Not Reportable 11/23/20 15:24 Clumped Platelets Not Reportable 11/23/20 15:24 Plt Clumps, EDTA Not Reportable 11/23/20 15:24 Large Platelets Not Reportable 11/23/20 15:24 Giant Platelets Not Reportable 11/23/20 15:24 Platelet Satelliting Not Reportable 11/23/20 15:24 Plt Morphology Comment Not Reportable 11/23/20 15:24 RBC Morphology Not Reportable 11/23/20 15:24 Dimorphic RBCs Not Reportable 11/23/20 15:24 Polychromasia Not Reportable 11/23/20 15:24 Hypochromasia Not Reportable 11/23/20 15:24 Poikilocytosis Not Reportable 11/23/20 15:24 Anisocytosis Few 11/23/20 15:24 Microcytosis Not Reportable 11/23/20 15:24 Macrocytosis Not Reportable 11/23/20 15:24 Spherocytes Not Reportable 11/23/20 15:24 Pappenheimer Bodies Not Reportable 11/23/20 15:24 Sickle Cells Not Reportable 11/23/20 15:24 Target Cells Not Reportable 11/23/20 15:24 Tear Drop Cells Not Reportable 11/23/20 15:24 Ovalocytes Not Reportable 11/23/20 15:24 Helmet Cells Not Reportable 11/23/20 15:24 Kim-Elberfeld Bodies Not Reportable 11/23/20 15:24 [place] Rings Not Reportable 11/23/20 15:24 Joni Cells Not Reportable 11/23/20 15:24 Bite Cells Not Reportable 11/23/20 15:24 Crenated Cell Not Reportable 11/23/20 15:24 Elliptocytes Not Reportable 11/23/20 15:24 Acanthocytes (Spur) Not Reportable 11/23/20 15:24 Rouleaux Not Reportable 11/23/20 15:24 Hemoglobin C Crystals Not Reportable 11/23/20 15:24 Schistocytes Not Reportable 11/23/20 15:24 Malaria parasites Not Reportable 11/23/20 15:24 Jones Bodies Not Reportable 11/23/20 15:24 Hem Pathologist Commnt No 11/23/20 15:24 PT 11.5 Sec. (12.2-14.9) L 11/11/20 09:02 INR 0.86 (0.87-1.13) L 11/11/20 09:02 APTT 25.5 Sec. (24.2-36.6) 11/11/20 09:02 Thrombin Time 17.0 Sec. (15.1-19.6) 11/11/20 09:02 ABG pH 7.499 (7.320-7.450) H 11/17/20 11:40 POC ABG pCO2 36.3 mmHg (32.0-48.0) 11/17/20 11:40 ABG pCO2 33.9 mm Hg 11/11/20 10:45 POC ABG pO2 140.8 mmHg (83-108) H 11/17/20 11:40 ABG pO2 222.2 mm Hg (80.0-90.0) H 11/11/20 10:45 POC ABG HCO3 27.6 11/17/20 11:40 ABG HCO3 24.9 mmol/L (20.0-26.0) 11/11/20 10:45 ABG O2 Saturation 98.1 (0-100) 11/17/20 11:40 ABG O2 Content 19.4 (0.0-44) 11/11/20 10:45 POC ABG Base Excess 4.4 11/17/20 11:40 ABG Base Excess 1.9 mmol/L (-2.0-3.0) 11/11/20 10:45 ABG Hemoglobin 11.8 (12.0-17.5) L 11/17/20 11:40 ABG Oxyhemoglobin 97.4 (94-98) 11/17/20 11:40 ABG Carboxyhemoglobin 0.6 % (0.0-5.0) 11/11/20 10:45 ABG Methemoglobin 0.3 (0.0-1.5) 11/17/20 11:40 ABG Sodium 135.1 mmol/L (136.0-145.0) L 11/17/20 11:40 ABG Potassium 4.2 mmol/L (3.40-4.50) 11/17/20 11:40 ABG Chloride 102.0 mmol/L (98-107) 11/17/20 11:40 ABG Glucose 110 mg/dL (65-95) H 11/17/20 11:40 Oxyhemoglobin 98.5 % (95.0-99.0) 11/11/20 10:45 Carboxyhemoglobin 0.4 (0.5-1.5) L 11/17/20 11:40 FiO2 21 % 11/11/20 10:45 FiO2 % 30 11/17/20 11:40 Sodium 129 mmol/L (137-145) L 11/23/20 15:24 Potassium 4.6 mmol/L (3.6-5.0) 11/23/20 15:24 Chloride 95.5 mmol/L (98-107) L 11/23/20 15:24 Carbon Dioxide 26 mmol/L (22-30) 11/23/20 15:24 Anion Gap 12 mmol/L 11/23/20 15:24 BUN 9 mg/dL (9-20) 11/23/20 15:24 Creatinine 0.7 mg/dL (0.8-1.3) L 11/23/20 15:24 Estimated GFR > 60 ml/min 11/23/20 15:24 BUN/Creatinine Ratio 13 % 11/23/20 15:24 Glucose 118 mg/dL (75-100) H 11/23/20 15:24 POC Glucose 108 mg/dL (70-105) H 11/23/20 22:30 Hemoglobin A1c 5.4 % (4-6) 11/12/20 07:26 Calcium 8.8 mg/dL (8.4-10.2) 11/23/20 15:24 Magnesium 2.00 mg/dL (1.7-2.3) 11/11/20 09:02 Total Bilirubin 0.40 mg/dL (0.1-1.2) 11/18/20 05:44 AST 36 units/L (5-40) 11/18/20 05:44 ALT 32 units/L (7-56) 11/18/20 05:44 Alkaline Phosphatase 80 units/L (35-129) 11/18/20 05:44 Ammonia 29.0 umol/L (25-60) 11/12/20 08:47 Total Creatine Kinase 169 units/L (55-170) 11/11/20 09:02 CK-MB (CK-2) 6.6 ng/mL (0.0-4.0) H 11/11/20 09:02 CK-MB (CK-2) Rel Index 3.9 (0-4) 11/11/20 09:02 Troponin T < 0.010 ng/mL (0.00-0.029) 11/11/20 09:02 Total Protein 6.3 g/dL (6.3-8.2) 11/18/20 05:44 Albumin 2.5 g/dL (3.9-5) L 11/18/20 05:44 Albumin/Globulin Ratio 0.7 % 11/18/20 05:44 Arterial Blood Glucose 110 mg/dL (65-95) H 11/17/20 11:40 Arterial Blood Ionized Calcium 4.9 mg/dL (4.6-5.3) 11/17/20 11:40 Urine Color Yellow (Yellow) 11/11/20 20:27 Urine Turbidity Clear (Clear) 11/11/20 20: Urine pH 6.0 (5.0-7.0) 11/11/20 20:27 Ur Specific [place] 1.045 (1.003-1.030) H 11/11/20 20:27 Urine Protein 100 mg/dl mg/dL (Negative) 11/11/20 20:27 Urine Glucose (UA) Neg mg/dL (Negative) 11/11/20 20:27 Urine Ketones Neg mg/dL (Negative) 11/11/20 20:27 Urine Blood Sm (Negative) 11/11/20 20:27 Urine Nitrite Neg (Negative) 11/11/20 20:27 Urine Bilirubin Neg (Negative) 11/11/20 20:27 Urine Urobilinogen 4.0 mg/dL (<2.0) 11/11/20 20:27 Ur Leukocyte Esterase Neg (Negative) 11/11/20 20:27 Urine WBC (Auto) 1.0 /HPF (0.0-6.0) 11/11/20 20:27 Urine RBC (Auto) 4.0 /HPF (0.0-6.0) 11/11/20 20:27 U Epithel Cells (Auto) 12.0 /HPF (0-13.0) 11/11/20 20:27 Urine Bacteria (Auto) 1+ /HPF (Negative) 11/11/20 20:27 Urine Mucus Few /HPF 11/11/20 20:27 Urine Opiates Screen Negative 11/11/20 20:27 Urine Methadone Screen Negative 11/11/20 20:27 Ur Barbiturates Screen Positive 11/11/20 20:27 Ur Phencyclidine Scrn Negative 11/11/20 20:27 Ur Amphetamines Screen Negative 11/11/20 20:27 Phenobarbital 4.3 ug/mL (15.0-40.0) L 11/12/20 08:47 U Benzodiazepines Scrn Negative 11/11/20 20:27 Urine Cocaine Screen Negative 11/11/20 20:27 U Marijuana (THC) Screen Negative 11/11/20 20:27 Drugs of Abuse Note Disclamer 11/11/20 20:27 Plasma/Serum Alcohol < 0.01 % (0-0.07) 11/11/20 09:02 Coronavirus (PCR) Negative (Negative) 11/23/20 Unknown [place]/IV: Voiding Method Condom Catheter Active Medications - Current Medications Current Medications: Generic Name Dose Route Start Last Admin Trade Name Freq PRN Reason Stop Dose Admin Acetaminophen 650 mg 11/11/20 22:58 Acetaminophen 325 Mg Tab PO Q4H PRN Pain MILD(1-3)/Fever >100.5/BAR Albuterol 2.5 mg 11/11/20 23:18 Albuterol 2.5 Mg/3 Ml Nebu IH Q3HRT PRN Wheezing Lipase/Protease/Amylase 1 each 11/12/20 12:00 Lipase 10,500/Protease 25,000/Amylase 43,750 (Units) Dr Rangel FEEDTUBE PRN PRN For Clogged Feeding Tube Dextrose 50 ml 11/11/20 22:11 11/17/20 23:29 Dextrose 50% In Water (25gm) 50 Ml Syringe IV 10 ml ONCE PRN Administration Hypoglycemia Protocol Enoxaparin Sodium 40 mg 11/12/20 22:00 11/23/20 21:28 Enoxaparin 40 Mg/0.4 Ml Inj SUB-Q 40 mg QDAY@2200 KIRK Administration Protocol Folic Acid 1 mg 11/16/20 10:00 11/23/20 11:30 Folic Acid 1 Mg Tab PO Not Given DAILY KIRK Hydralazine HCl 10 mg 11/12/20 10:30 11/14/20 07:30 Hydralazine 20 Mg/1 Ml Inj IV 10 mg Q4H PRN Administration Hypertension Hydrophilic Ointment 1 applic 11/11/20 09:14 Lip Therapy Vaseline TP Q2HR PRN Dry Lips Dextrose/Sodium Chloride 1,000 mls @ 75 mls/hr 11/21/20 15:00 11/24/20 05:42 D5/0.45ns IV 75 mls/hr DIRECT KIRK Administration Insulin Human Regular 0 units 11/12/20 18:00 11/24/20 06:52 Insulin Regular, Human 100 Units/1 Ml SUB-Q Not Given Q6H KIRK Protocol Lansoprazole 30 mg 11/24/20 10:00 Lansoprazole 30 Mg Solutab FEEDTUBE QDAY KIRK Levetiracetam 1,000 mg 11/24/20 10:00 Levetiracetam 500 Mg/5 Ml Oral Liqd FEEDTUBE BID KIRK Metoclopramide HCl 10 mg 11/11/20 22:58 Metoclopramide 10 Mg/2 Ml Inj IV Q6H PRN Nausea And Vomiting Multi-Ingred Cream/Lotion/Oil/Oint 1 applic 11/11/20 09:14 Mineral Oil/Petrolatum, White Ophth Oint 3.5 Gm OU Q4HR PRN Dry Eye(s) Multivitamins 1 each 11/13/20 00:00 11/24/20 00:22 Multivitamins ,Therapeutic Tab PO 1 each Q24H KIRK Administration Naloxone HCl 2 mg 11/11/20 08:33 Naloxone 0.4 Mg/1 Ml Inj IV Q2MIN PRN Res Rate </= 8 or 02 SAT < 92% Ondansetron HCl 4 mg 11/11/20 22:58 Ondansetron 4 Mg/2 Ml Inj IV Q3H PRN Nausea And Vomiting Phenobarbital 15 mg 11/11/20 23:45 11/23/20 21:28 Phenobarbital 15 Mg Tab PO Not Given BID KIRK Simple Syrup 15 ml 11/12/20 12:00 Simple Syrup 15 Ml FEEDTUBE PRN PRN Hypoglycemia Simple Syrup 30 ml 11/12/20 12:00 Simple Syrup 15 Ml FEEDTUBE PRN PRN Hypoglycemia Sodium Bicarbonate 325 mg 11/12/20 12:00 Sodium Bicarbonate 325 Mg Tab FEEDTUBE PRN PRN For Clogged Feeding Tube Sodium Chloride 10 ml 11/11/20 23:00 11/23/20 21:29 Sodium Chloride 0.9% 10 Ml Flush Syringe IV 10 ml BID KIRK Administration Sodium Chloride 10 ml 11/11/20 22:58 Sodium Chloride 0.9% 10 Ml Flush Syringe IV PRN PRN LINE FLUSH Sodium Chloride 2 gm 11/23/20 22:00 11/23/20 21:29 Sodium Chloride 1 Gm Tab PO 2 gm BID KIRK Administration Thiamine HCl 100 mg 11/16/20 10:00 11/23/20 11:30 Thiamine 100 Mg Tab PO Not Given QDAY [facility] Nutrition/Malnutrition Assess - Dietary Evaluation Nutrition/Malnutrition Findings: Nutrition Notes Start: 11/12/20 08:26 Freq: Status: Active Protocol: Document 11/22/20 12:13 (Rec: 11/22/20 12:16 [id number]) Nutrition Notes Initial or Follow up Brief Note Current Diagnosis Respiratory Failure,Stroke Other Pertinent Diagnosis Seizures Current Diet Jevity 1.2 at 60 ml/hr Subjective/Other Information FU for plan of care. Pt waiting COLOR ADVISER consult. Per chart , pt may have PEG placed tommorrow pending COLOR ADVISER recommendations. TF not running d/t inability to place dobhoff related to esophageal mass. Nutrition Intervention Follow-Up By: 11/24/20 Additional Comments FU for COLOR ADVISER recommendations and plan of care
[2020-11-24] MEDS: LANSOPRAZOLE 30 MG SOLUTAB FEEDTUBE SCH (10:46)
[2020-11-24] MEDS: FOLIC ACID 1 MG TAB PO SCH (10:46)
[2020-11-24] MEDS: levETIRAcetam 500 MG/5 ML ORAL LIQD FEEDTUBE SCH ×2 (10:46→21:53)
[2020-11-24] MEDS: THIAMINE 100 MG TAB PO SCH (10:46)
[2020-11-24] MEDS: SODIUM CHLORIDE 1 GM TAB PO SCH ×2 (10:47→21:53)
[2020-11-24] MEDS: PHENobarbital 15 MG TAB PO SCH ×2 (11:04→22:32)
[2020-11-24] MEDS: ENOXAPARIN 40 MG/0.4 ML INJ SUB-Q SCH (21:52)
[2020-11-25] MEDS: MULTIVITAMINS ,THERAPEUTIC TAB PO SCH ×2 (00:16→23:51)
[2020-11-25] MEDS: D5W/0.45% NACL 1,000 ML IV SCH (00:16)
[2020-11-25] MEDS: INSULIN REGULAR, HUMAN 100 UNITS/1 ML SUB-Q SCH ×4 (00:17→18:00)
[2020-11-25] MEDS: levETIRAcetam 500 MG/5 ML ORAL LIQD FEEDTUBE SCH ×2 (09:53→23:51)
[2020-11-25] MEDS: LANSOPRAZOLE 30 MG SOLUTAB FEEDTUBE SCH (09:53)
[2020-11-25] MEDS: FOLIC ACID 1 MG TAB PO SCH (09:53)
[2020-11-25] MEDS: THIAMINE 100 MG TAB PO SCH (09:53)
[2020-11-25] MEDS: SODIUM CHLORIDE 1 GM TAB PO SCH ×2 (09:56→23:51)
--- NOTE | 2020-11-25 09:57 | Progress Note ---
Assessment and Plan Assessment and plan: #Acute hypoxic respiratory failure Now extubated Improved. Now on 2-1/2 L of oxygen #Seizure disorder Continue antiseizure medications No further seizures CT head and brain MRI showed no etiology for seizure #SIRS Etiology unknown-urinalysis negative, chest x-ray also negative COVID-19 test negative Discontinued antibiotics #Needs ENT as outpatient for evaluation of upper airway. He has no carcinoma as written in previous notes Needs further evaluation of liver lesion with MRI as outpatient Also needs to follow up with pulmonary in the office #Dysphagia s/p PEG placement #DVT prophylaxis-SCDs, Lovenox #GI prophylaxis-PPIs #Disposition-Needs placement History Interval history: This is a 60-year-old male with seizure disorder current alcohol and tobacco abuse presents to the hospital on 11/11 after being found unresponsive. On arrival of EMS patient was found to be hypoglycemic and given IV dextrose after which he recovered and refused further care. EMS was called again by family after the patient was found unresponsive and was given Narcan with no change. Patient was noted to have seizure activity and given 7 mg IV Ativan total inclu ding 3 from EMS. Patient was loaded with Keppra 2 g and was intubated for airway protection. Patient was found to have metabolic acidosis and hypoglycemia on BMP. Patient was found to be hypothermic and hypertensive in the emergency department. Patient's UDS was positive for barbiturates. Patient was admitted to the hospital service for further work-up with consults to [facility] and neurology. 11/12. Patient remains intubated. On Keppra and phenobarbital. Neurology evaluation appreciated. EEG ordered. May need transfer to tertiary care for continuous EEG pending EEG results. 11/13. Remains intubated and on antiseizure medications. EEG has been performed but results are pending. Neurology on board 11/14. Remains intubated and on antiseizure medications. EEG has been performed but results are pending. Neurology on board 11/15: EEG is consistent with significant encephalopathy and does not rule out the possibility of epilepsy, patient remains on mechanical ventilation with minimal vent settings. No acute events reported overnight. 11/16: No acute events reported overnight, patient opens eyes spontaneously and withdraws to pain bilateral lower extremities. At the time my examination patient was on CMV 450/18/64/0.30 and has been started on a CPAP trial subsequently. No evidence of generalized seizures noted. Patient is a lui of the state 11/17: Patient was extubated today per CCM, no acute events reported overnight. Patient has a right sided gaze during my examination and was on CPAP 06/08 at 30% and he opens his eyes spontaneously. He does withdraw bilateral lower extremities to pain. His Keppra was decreased yesterday. ST evaluation pending 11/18: Follow-up EEG reading. Patient currently off sedation. Nursing to place Dobbhoff tube for feeding. Speech therapy to continue swallow evaluation. No new seizure activity. Continue phenobarbital and Keppra. Seizure precautions. Transfer to [facility] today. 11/19: Dobbhoff tube with removal difficulty yesterday. 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 CT scan of the chest revealed pulmonary nodule and lesion in the liver suggestive of metastatic disease. GI consultation pending. Patient was electively intubated yesterday for airway protection. Extubation today per pulmonary 11/20: Await speech therapy evaluation. Patient will likely need PEG tube placement. Consult GI for further evaluation. Oncology consultation for likely metastatic disease. 11/21: Await GI consultation. Appreciate oncology evaluation. 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 Check MRI brain to rule out brain metastasis. Poor prognosis. 11/22: GI recommends tissue diagnosis either with ENT involvement and evaluation of epiglottis mass with biopsy vs biopsy of the liver lesion. Follow-up with case management for obtaining consent for possible PEG tube placement 11/23. Brain MRI showed no brain metastasis. Plan for EGD as per GI. Patient will need possible ENT evaluation of mass with biopsy or biopsy of the liver lesion. 11/24. EGD shows no mass in the oropharynx. PEG was placed during EGD and patient has been started on tube feeds. He will need placement to a halfway facility and has been accepted at some facilities. COVID-19 test is negative. collection manager trying to arrange for further paperwork prior to discharge. 11/25. Needs placement. No change in medical condition. Hospitalist Physical - Physical exam Narrative exam: VITAL SIGNS: Reviewed. GENERAL: Awake HEAD: No signs of head trauma. EYES: Pupils are equal. Extraocular motions intact. MOUTH: Oropharynx is normal. NECK: No adenopathy, no JVD. CHEST: Chest with diminished breath sounds bilaterally. No wheezes, rales, or rhonchi. CARDIAC: normal S1 and S2, without murmurs, gallops, or rubs. ABDOMEN: Soft, non tender and non distended. No rebound or guarding, and no masses palpated. Bowel Sounds normal. MUSCULOSKELETAL: No edema NEUROLOGIC EXAM: Awake but nonverbal SKIN: No obvious lesions - Constitutional Vitals: Temp Pulse Resp BP Pulse Ox 98.0 F 73 18 159/77 97 11/25/20 00:11 11/25/20 04:00 11/25/20 00:11 11/25/20 00:11 11/25/20 09:40 General appearance: Present: no acute distress, other (unresponsive) HEART Score - HEART Score Troponin: Troponin T < 0.010 ng/mL (0.00-0.029) 11/11/20 09:02 Results - Labs CBC & Chem 7: 11/25/20 09:42 11/25/20 09:42 Labs: Laboratory Last Values WBC 13.3 K/mm3 (4.5-11.0) H 11/23/20 15:24 RBC 4.22 M/mm3 (3.65-5.03) 11/23/20 15:24 Hgb 11.9 gm/dl (11.8-15.2) 11/23/20 15:24 Hct 35.8 % (35.5-45.6) 11/23/20 15:24 MCV 85 fl (84-94) 11/23/20 15:24 MCH 28 pg (28-32) 11/23/20 15:24 MCHC 33 % (32-34) 11/23/20 15:24 RDW 15.6 % (13.2-15.2) H 11/23/20 15:24 Plt Count 346 K/mm3 (140-440) 11/23/20 15:24 Lymph % (Auto) 20.4 % (13.4-35.0) 11/18/20 05:44 [place] % (Auto) 10.4 % (0.0-7.3) H 11/18/20 05:44 Eos % (Auto) 2.5 % (0.0-4.3) 11/18/20 05:44 Baso % (Auto) 1.0 % (0.0-1.8) 11/18/20 05:44 Lymph # (Auto) 2.1 K/mm3 (1.2-5.4) 11/18/20 05:44 [place] # (Auto) 1.1 K/mm3 (0.0-0.8) H 11/18/20 05:44 Eos # (Auto) 0.3 K/mm3 (0.0-0.4) 11/18/20 05:44 Baso # (Auto) 0.1 K/mm3 (0.0-0.1) 11/18/20 05:44 Add Manual Diff Complete 11/23/20 15:24 Total Counted 100 11/23/20 15:24 Seg Neutrophils % 65.7 % (40.0-70.0) 11/18/20 05:44 Seg Neuts % (Manual) 66.0 % (40.0-70.0) 11/23/20 15:24 Lymphocytes % (Manual) 23.0 % (13.4-35.0) 11/23/20 15:24 Monocytes % (Manual) 9.0 % (0.0-7.3) H 11/23/20 15:24 Eosinophils % (Manual) 2.0 % (0.0-4.3) 11/23/20 15:24 Nucleated RBC % Not Reportable 11/23/20 15:24 Seg Neutrophils # 6.7 K/mm3 (1.8-7.7) 11/18/20 05:44 Seg Neutrophils # Man 8.8 K/mm3 (1.8-7.7) H 11/23/20 15:24 Band Neutrophils # 0.0 K/mm3 11/23/20 15:24 Lymphocytes # (Manual) 3.1 K/mm3 (1.2-5.4) 11/23/20 15:24 Abs React Lymphs (Man) 0.0 K/mm3 11/23/20 15:24 Monocytes # (Manual) 1.2 K/mm3 (0.0-0.8) H 11/23/20 15:24 Eosinophils # (Manual) 0.3 K/mm3 (0.0-0.4) 11/23/20 15:24 Basophils # (Manual) 0.0 K/mm3 (0.0-0.1) 11/23/20 15:24 Metamyelocytes # 0.0 K/mm3 11/23/20 15:24 Myelocytes # 0.0 K/mm3 11/23/20 15:24 Promyelocytes # 0.0 K/mm3 11/23/20 15:24 Blast Cells # 0.0 K/mm3 11/23/20 15:24 WBC Morphology Not Reportable 11/23/20 15:24 Hypersegmented Neuts Not Reportable 11/23/20 15:24 Hyposegmented Neuts Not Reportable 11/23/20 15:24 Hypogranular Neuts Not Reportable 11/23/20 15:24 Smudge Cells Not Reportable 11/23/20 15:24 Toxic Granulation Not Reportable 11/23/20 15:24 Toxic Vacuolation Not Reportable 11/23/20 15:24 Dohle Bodies Not Reportable 11/23/20 15:24 Pelger-Huet Anomaly Not Reportable 11/23/20 15:24 Fercho Rods Not Reportable 11/23/20 15:24 Platelet Estimate Not Reportable 11/23/20 15:24 Clumped Platelets Not Reportable 11/23/20 15:24 Plt Clumps, EDTA Not Reportable 11/23/20 15:24 Large Platelets Not Reportable 11/23/20 15:24 Giant Platelets Not Reportable 11/23/20 15:24 Platelet Satelliting Not Reportable 11/23/20 15:24 Plt Morphology Comment Not Reportable 11/23/20 15:24 RBC Morphology Not Reportable 11/23/20 15:24 Dimorphic RBCs Not Reportable 11/23/20 15:24 Polychromasia Not Reportable 11/23/20 15:24 Hypochromasia Not Reportable 11/23/20 15:24 Poikilocytosis Not Reportable 11/23/20 15:24 Anisocytosis Few 11/23/20 15:24 Microcytosis Not Reportable 11/23/20 15:24 Macrocytosis Not Reportable 11/23/20 15:24 Spherocytes Not Reportable 11/23/20 15:24 Pappenheimer Bodies Not Reportable 11/23/20 15:24 Sickle Cells Not Reportable 11/23/20 15:24 Target Cells Not Reportable 11/23/20 15:24 Tear Drop Cells Not Reportable 11/23/20 15:24 Ovalocytes Not Reportable 11/23/20 15:24 Helmet Cells Not Reportable 11/23/20 15:24 [place] Bodies Not Reportable 11/23/20 15:24 [place] Rings Not Reportable 11/23/20 15:24 [place] Cells Not Reportable 11/23/20 15:24 Bite Cells Not Reportable 11/23/20 15:24 Crenated Cell Not Reportable 11/23/20 15:24 Elliptocytes Not Reportable 11/23/20 15:24 Acanthocytes (Spur) Not Reportable 11/23/20 15:24 Rouleaux Not Reportable 11/23/20 15:24 Hemoglobin C Crystals Not Reportable 11/23/20 15:24 Schistocytes Not Reportable 11/23/20 15:24 Malaria parasites Not Reportable 11/23/20 15:24 Jones Bodies Not Reportable 11/23/20 15:24 Hem Pathologist Commnt No 11/23/20 15:24 PT 11.5 Sec. (12.2-14.9) L 11/11/20 09:02 INR 0.86 (0.87-1.13) L 11/11/20 09:02 APTT 25.5 Sec. (24.2-36.6) 11/11/20 09:02 Thrombin Time 17.0 Sec. (15.1-19.6) 11/11/20 09:02 ABG pH 7.499 (7.320-7.450) H 11/17/20 11:40 POC ABG pCO2 36.3 mmHg (32.0-48.0) 11/17/20 11:40 ABG pCO2 33.9 mm Hg 11/11/20 10:45 POC ABG pO2 140.8 mmHg (83-108) H 11/17/20 11:40 ABG pO2 222.2 mm Hg (80.0-90.0) H 11/11/20 10:45 POC ABG HCO3 27.6 11/17/20 11:40 ABG HCO3 24.9 mmol/L (20.0-26.0) 11/11/20 10:45 ABG O2 Saturation 98.1 (0-100) 11/17/20 11:40 ABG O2 Content 19.4 (0.0-44) 11/11/20 10:45 POC ABG Base Excess 4.4 11/17/20 11:40 ABG Base Excess 1.9 mmol/L (-2.0-3.0) 11/11/20 10:45 ABG Hemoglobin 11.8 (12.0-17.5) L 11/17/20 11:40 ABG Oxyhemoglobin 97.4 (94-98) 11/17/20 11:40 ABG Carboxyhemoglobin 0.6 % (0.0-5.0) 11/11/20 10:45 ABG Methemoglobin 0.3 (0.0-1.5) 11/17/20 11:40 ABG Sodium 135.1 mmol/L (136.0-145.0) L 11/17/20 11:40 ABG Potassium 4.2 mmol/L (3.40-4.50) 11/17/20 11:40 ABG Chloride 102.0 mmol/L (98-107) 11/17/20 11:40 ABG Glucose 110 mg/dL (65-95) H 11/17/20 11:40 Oxyhemoglobin 98.5 % (95.0-99.0) 11/11/20 10:45 Carboxyhemoglobin 0.4 (0.5-1.5) L 11/17/20 11:40 FiO2 21 % 11/11/20 10:45 FiO2 % 30 11/17/20 11:40 Sodium 129 mmol/L (137-145) L 11/23/20 15:24 Potassium 4.6 mmol/L (3.6-5.0) 11/23/20 15:24 Chloride 95.5 mmol/L (98-107) L 11/23/20 15:24 Carbon Dioxide 26 mmol/L (22-30) 11/23/20 15:24 Anion Gap 12 mmol/L 11/23/20 15:24 BUN 9 mg/dL (9-20) 11/23/20 15:24 Creatinine 0.7 mg/dL (0.8-1.3) L 11/23/20 15:24 Estimated GFR > 60 ml/min 11/23/20 15:24 BUN/Creatinine Ratio 13 % 11/23/20 15:24 Glucose 118 mg/dL (75-100) H 11/23/20 15:24 POC Glucose 120 mg/dL (70-105) H 11/24/20 16:40 Hemoglobin A1c 5.4 % (4-6) 11/12/20 07:26 Calcium 8.8 mg/dL (8.4-10.2) 11/23/20 15:24 Magnesium 2.00 mg/dL (1.7-2.3) 11/11/20 09:02 Total Bilirubin 0.40 mg/dL (0.1-1.2) 11/18/20 05:44 AST 36 units/L (5-40) 11/18/20 05:44 ALT 32 units/L (7-56) 11/18/20 05:44 Alkaline Phosphatase 80 units/L (35-129) 11/18/20 05:44 Ammonia 29.0 umol/L (25-60) 11/12/20 08:47 Total Creatine Kinase 169 units/L (55-170) 11/11/20 09:02 CK-MB (CK-2) 6.6 ng/mL (0.0-4.0) H 11/11/20 09:02 CK-MB (CK-2) Rel Index 3.9 (0-4) 11/11/20 09:02 Troponin T < 0.010 ng/mL (0.00-0.029) 11/11/20 09:02 Total Protein 6.3 g/dL (6.3-8.2) 11/18/20 05:44 Albumin 2.5 g/dL (3.9-5) L 11/18/20 05:44 Albumin/Globulin Ratio 0.7 % 11/18/20 05:44 Arterial Blood Glucose 110 mg/dL (65-95) H 11/17/20 11:40 Arterial Blood Ionized Calcium 4.9 mg/dL (4.6-5.3) 11/17/20 11:40 Urine Color Yellow (Yellow) 11/11/20 20:27 Urine Turbidity Clear (Clear) 11/11/20 20: Urine pH 6.0 (5.0-7.0) 11/11/20 20:27 Ur Specific [place] 1.045 (1.003-1.030) H 11/11/20 20:27 Urine Protein 100 mg/dl mg/dL (Negative) 11/11/20 20: Urine Glucose (UA) Neg mg/dL (Negative) 03/11/21 20:27 Urine Ketones Neg mg/dL (Negative) 11/11/20 20:27 Urine Blood Sm (Negative) 11/11/20 20:27 Urine Nitrite Neg (Negative) 11/11/20 20:27 Urine Bilirubin Neg (Negative) 11/11/20 20:27 Urine Urobilinogen 4.0 mg/dL (<2.0) 11/11/20 20:27 Ur Leukocyte Esterase Neg (Negative) 11/11/20 20:27 Urine WBC (Auto) 1.0 /HPF (0.0-6.0) 11/11/20 20:27 Urine RBC (Auto) 4.0 /HPF (0.0-6.0) 11/11/20 20:27 U Epithel Cells (Auto) 12.0 /HPF (0-13.0) 11/11/20 20:27 Urine Bacteria (Auto) 1+ /HPF (Negative) 11/11/20 20:27 Urine Mucus Few /HPF 11/11/20 20:27 Urine Opiates Screen Negative 11/11/20 20:27 Urine Methadone Screen Negative 11/11/20 20:27 Ur Barbiturates Screen Positive 11/11/20 20:27 Ur Phencyclidine Scrn Negative 11/11/20 20:27 Ur Amphetamines Screen Negative 11/11/20 20:27 Phenobarbital 4.3 ug/mL (15.0-40.0) L 11/12/20 08:47 U Benzodiazepines Scrn Negative 11/11/20 20:27 Urine Cocaine Screen Negative 11/11/20 20:27 U Marijuana (THC) Screen Negative 11/11/20 20:27 Drugs of Abuse Note Disclamer 11/11/20 20:27 Plasma/Serum Alcohol < 0.01 % (0-0.07) 11/11/20 09:02 Coronavirus (PCR) Negative (Negative) 11/23/20 Unknown [place]/IV: Voiding Method Condom Catheter Active Medications - Current Medications Current Medications: Generic Name Dose Route Start Last Admin Trade Name Freq PRN Reason Stop Dose Admin Acetaminophen 650 mg 11/11/20 22:58 Acetaminophen 325 Mg Tab PO Q4H PRN Pain MILD(1-3)/Fever >100.5/BAR Albuterol 2.5 mg 11/11/20 23:18 Albuterol 2.5 Mg/3 Ml Nebu IH Q3HRT PRN Wheezing Lipase/Protease/Amylase 1 each 11/12/20 12:00 Lipase 10,500/Protease 25,000/Amylase 43,750 (Units) Dr Rangel FEEDTUBE PRN PRN For Clogged Feeding Tube Dextrose 50 ml 11/11/20 22:11 11/17/20 23:29 Dextrose 50% In Water (25gm) 50 Ml Syringe IV 10 ml ONCE PRN Administration Hypoglycemia Protocol Enoxaparin Sodium 40 mg 11/12/20 22:00 11/24/20 21:52 Enoxaparin 40 Mg/0.4 Ml Inj SUB-Q 40 mg QDAY@2200 KIRK Administration Protocol Folic Acid 1 mg 11/16/20 10:00 11/24/20 10:46 Folic Acid 1 Mg Tab PO 1 mg DAILY KIRK Administration Hydralazine HCl 10 mg 11/12/20 10:30 11/14/20 07:30 Hydralazine 20 Mg/1 Ml Inj IV 10 mg Q4H PRN Administration Hypertension Hydrophilic Ointment 1 applic 11/11/20 09:14 Lip Therapy Vaseline TP Q2HR PRN Dry Lips Insulin Human Regular 0 units 11/12/20 18:00 11/25/20 07:35 Insulin Regular, Human 100 Units/1 Ml SUB-Q Not Given Q6H [facility] Protocol Lansoprazole 30 mg 11/24/20 10:00 11/24/20 10:46 Lansoprazole 30 Mg Solutab FEEDTUBE 30 mg QDAY KIRK Administration Levetiracetam 1,000 mg 11/24/20 10:00 11/24/20 21:53 Levetiracetam 500 Mg/5 Ml Oral Liqd FEEDTUBE 1,000 mg BID KIRK Administration Metoclopramide HCl 10 mg 11/11/20 22:58 Metoclopramide 10 Mg/2 Ml Inj IV Q6H PRN Nausea And Vomiting Multi-Ingred Cream/Lotion/Oil/Oint 1 applic 11/11/20 09:14 Mineral Oil/Petrolatum, White Ophth Oint 3.5 Gm OU Q4HR PRN Dry Eye(s) Multivitamins 1 each 11/13/20 00:00 11/25/20 00:16 Multivitamins ,Therapeutic Tab PO 1 each Q24H KIRK Administration Naloxone HCl 2 mg 11/11/20 08:33 Naloxone 0.4 Mg/1 Ml Inj IV Q2MIN PRN Res Rate </= 8 or 02 SAT < 92% Ondansetron HCl 4 mg 11/11/20 22:58 Ondansetron 4 Mg/2 Ml Inj IV Q3H PRN Nausea And Vomiting Phenobarbital 15 mg 11/11/20 23:45 11/24/20 22:32 Phenobarbital 15 Mg Tab PO 15 mg BID KIRK Administration Simple Syrup 15 ml 11/12/20 12:00 Simple Syrup 15 Ml FEEDTUBE PRN PRN Hypoglycemia Simple Syrup 30 ml 11/12/20 12:00 Simple Syrup 15 Ml FEEDTUBE PRN PRN Hypoglycemia Sodium Bicarbonate 325 mg 11/12/20 12:00 Sodium Bicarbonate 325 Mg Tab FEEDTUBE PRN PRN For Clogged Feeding Tube Sodium Chloride 10 ml 11/11/20 23:00 11/24/20 21:54 Sodium Chloride 0.9% 10 Ml Flush Syringe IV 10 ml BID KIRK Administration Sodium Chloride 10 ml 11/11/20 22:58 Sodium Chloride 0.9% 10 Ml Flush Syringe IV PRN PRN LINE FLUSH Sodium Chloride 2 gm 11/23/20 22:00 11/24/20 21:53 Sodium Chloride 1 Gm Tab PO 2 gm BID KIRK Administration Thiamine HCl 100 mg 11/16/20 10:00 11/24/20 10:46 Thiamine 100 Mg Tab PO 100 mg QDAY KIRK Administration Nutrition/Malnutrition Assess - Dietary Evaluation Nutrition/Malnutrition Findings: Nutrition Notes Start: 11/12/20 08:26 Freq: Status: Active Protocol: Document 11/24/20 12:16 (Rec: 11/24/20 12:21 [id number]) Nutrition Notes Initial or Follow up Reassessment Current Diagnosis Respiratory Failure,Stroke Other Pertinent Diagnosis Seizures Current Diet Jevity 1.2 at 60 ml/hr Labs/Tests 11/23: Na 129 Pertinent Medications Thiamine D5 .45 NS at 75 ml/hr MVI Height 5 ft 9 in Weight 60 kg [place] Body Weight (kg) 72.72 BMI 19.5 Weight change and time frame 14% wt loss in 2 weeks, unsure of accuracy Weight Status Underweight Subjective/Other Information FU for plan of care. PEG placed and pt tolerating TF at 40 ml/hr. Percent of energy/protein needs met: 70%/80% Burn Absent Trauma Absent GI Symptoms None Current % PO Negligible Minimum of two criteria No physical signs of malnutrition #2 Nutrition Diagnosis Inadequate energy intake Diagnosis Progress(for reassessment Continues documentation) #1 Nutrition Diagnosis Inadequate oral intake Diagnosis Progress(for reassessment Continues documentation) Is patient on ventilator? No Is Patient Ambulatory and/or Out of Bed No REE-([facility] [place]-confined to bed) [phone] Calculation Used for Recommendations [facility] Additional Notes Protein: 70-84 g (1.0-1.2 g/kg ABW) Fluid: 1 ml/kcal Nutrition Intervention Change Diet Order: TF Nutrition Support: Jevity 1.2 at 60 ml/hr Flush 100 mL Kcal 1,728 Protein (gm) 80 Fluid (mL) 1,162 Goal #1 Meet at least 75% of estimated energy and protein needs via TF Anticipated Discharge Needs: Unable to determine at the time Follow-Up By: 11/26/20 Additional Comments FU for stable TF
[2020-11-25 10:18] LABS: Basophils % (Auto) 0.4 % (0.0-1.8); Eosinophils # (Auto) 0.1 K/mm3 (0.0-0.4); Eosinophils % (Auto) 0.6 % (0.0-4.3); Hematocrit 33.4 % (35.5-45.6); Hemoglobin 11.1 gm/dl (11.8-15.2); Lymphocytes # (Auto) 1.7 K/mm3 (1.2-5.4); Lymphocytes % (Auto) 16.8 % (13.4-35.0); Mean Corpuscular HGB Conc 33 % (32-34); Mean Corpuscular Volume 85 fl (84-94); Monocytes # (Auto) 0.9 K/mm3 (0.0-0.8); Monocytes % (Auto) 9.2 % (0.0-7.3); Platelet Count 345 K/mm3 (140-440); Red Blood Count 3.93 M/mm3 (3.65-5.03); Red Cell Distribution Width 15.2 % (13.2-15.2)
[2020-11-25 10:42] LABS: Alanine Aminotransferase 43 units/L (7-56); Albumin 2.7 g/dL (3.9-5); Blood Urea Nitrogen 11 mg/dL (9-20); Calcium 8.7 mg/dL (8.4-10.2); Hemolysis Index 6
[2020-11-25 10:53] LABS: BUN/Creatinine Ratio 18
[2020-11-25] MEDS: PHENobarbital 15 MG TAB PO SCH ×2 (11:06→23:51)
[2020-11-25] MEDS: ENOXAPARIN 40 MG/0.4 ML INJ SUB-Q SCH (23:52)
[2020-11-26] MEDS: INSULIN REGULAR, HUMAN 100 UNITS/1 ML SUB-Q SCH ×4 (00:06→19:22)
[2020-11-26 08:11] LABS: Basophils # (Auto) 0.1 K/mm3 (0.0-0.1); Basophils % (Auto) 0.7 % (0.0-1.8); Eosinophils # (Auto) 0.1 K/mm3 (0.0-0.4); Eosinophils % (Auto) 1.1 % (0.0-4.3); Hemoglobin 11.3 gm/dl (11.8-15.2); Lymphocytes # (Auto) 1.7 K/mm3 (1.2-5.4); Lymphocytes % (Auto) 18.3 % (13.4-35.0); Mean Corpuscular HGB Conc 33 % (32-34); Mean Corpuscular Volume 85 fl (84-94); Monocytes # (Auto) 0.9 K/mm3 (0.0-0.8); Monocytes % (Auto) 9.8 % (0.0-7.3); Platelet Count 328 K/mm3 (140-440); Red Blood Count 4.01 M/mm3 (3.65-5.03); Red Cell Distribution Width 15.1 % (13.2-15.2)
[2020-11-26 08:31] LABS: BUN/Creatinine Ratio 21; Blood Urea Nitrogen 15 mg/dL (9-20); Calcium 8.8 mg/dL (8.4-10.2)
[2020-11-26 08:32] LABS: Alanine Aminotransferase 34 units/L (7-56); Albumin 2.8 g/dL (3.9-5); Hemolysis Index 6
[2020-11-26] MEDS: FOLIC ACID 1 MG TAB PO SCH (09:29)
[2020-11-26] MEDS: levETIRAcetam 500 MG/5 ML ORAL LIQD FEEDTUBE SCH ×2 (09:29→22:31)
[2020-11-26] MEDS: THIAMINE 100 MG TAB PO SCH (09:29)
[2020-11-26] MEDS: LANSOPRAZOLE 30 MG SOLUTAB FEEDTUBE SCH (09:30)
[2020-11-26] MEDS: SODIUM CHLORIDE 1 GM TAB PO SCH ×2 (09:31→22:35)
[2020-11-26] MEDS: PHENobarbital 15 MG TAB PO SCH ×2 (09:57→22:32)
--- NOTE | 2020-11-26 10:53 | Progress Note ---
Assessment and Plan Assessment and plan: #Acute hypoxic respiratory failure Now extubated Improved. Now on 2-1/2 L of oxygen # Acute metabolic encephalopathy Baseline unknown Has no ongoing infective process MRI brain is negative This could be his baseline #Seizure disorder Continue antiseizure medications No further seizures CT head and brain MRI showed no etiology for seizure #SIRS Etiology unknown-urinalysis negative, chest x-ray also negative COVID-19 test negative Discontinued antibiotics #Needs ENT as outpatient for evaluation of upper airway. He has no carcinoma as written in previous notes Needs further evaluation of liver lesion with MRI as outpatient Also needs to follow up with pulmonary in the office #Dysphagia s/p PEG placement #DVT prophylaxis-SCDs, Lovenox #GI prophylaxis-PPIs #Disposition-Needs placement. CM on board History Interval history: This is a 60-year-old male with seizure disorder current alcohol and tobacco abuse presents to the hospital on 11/11 after being found unresponsive. On arrival of EMS patient was found to be hypoglycemic and given IV dextrose after which he recovered and refused further care. EMS was called again by family after the patient was found unresponsive and was given Narcan with no change. Patient was noted to have seizure activity and given 7 mg IV Ativan total including 3 from EMS. Patient was loaded with Keppra 2 g and was intubated for airway protection. Patient was found to have metabolic acidosis and hypoglycemia on BMP. Patient was found to be hypothermic and hypertensive in the emergency department. Patient's UDS was positive for barbiturates. Patient was admitted to the hospital service for further work-up with consults to [facility] and neurology. 11/12. Patient remains intubated. On Keppra and phenobarbital. Neurology evaluation appreciated. EEG ordered. May need transfer to tertiary care for continuous EEG pending EEG results. 11/13. Remains intubated and on antiseizure medications. EEG has been performed but results are pending. Neurology on board 11/14. Remains intubated and on antiseizure medications. EEG has been performed but results are pending. Neurology on board 11/15: EEG is consistent with significant encephalopathy and does not rule out the possibility of epilepsy, patient remains on mechanical ventilation with minimal vent settings. No acute events reported overnight. 11/16: No acute events reported overnight, patient opens eyes spontaneously and withdraws to pain bilateral lower extremities. At the time my examination patient was on CMV 450/18/64/0.30 and has been started on a CPAP trial subsequently. No evidence of generalized seizures noted. Patient is a lui of the state 11/17: Patient was extubated today per CCM, no acute events reported overnight. Patient has a right sided gaze during my examination and was on CPAP 06/08 at 30% and he opens his eyes spontaneously. He does withdraw bilateral lower extremities to pain. His Keppra was decreased yesterday. ST evaluation pending 11/18: Follow-up EEG reading. Patient currently off sedation. Nursing to place Dobbhoff tube for feeding. Speech therapy to continue swallow evaluation. No new seizure activity. Continue phenobarbital and Keppra. Seizure precautions. Transfer to [facility] today. 11/19: Dobbhoff tube with removal difficulty yesterday. 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 CT scan of the chest revealed pulmonary nodule and lesion in the liver suggestive of metastatic disease. GI consultation pending. Patient was electively intubated yesterday for airway protection. Extubation today per pulmonary 11/20: Await speech therapy evaluation. Patient will likely need PEG tube placement. Consult GI for further evaluation. Oncology consultation for likely metastatic disease. 11/21: Await GI consultation. Appreciate oncology evaluation. 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 Check MRI brain to rule out brain metastasis. Poor prognosis. 11/22: GI recommends tissue diagnosis either with ENT involvement and evaluation of epiglottis mass with biopsy vs biopsy of the liver lesion. Follow-up with case management for obtaining consent for possible PEG tube placement 11/23. Brain MRI showed no brain metastasis. Plan for EGD as per GI. Patient will need possible ENT evaluation of mass with biopsy or biopsy of the liver lesion. 11/24. EGD shows no mass in the oropharynx. PEG was placed during EGD and patient has been started on tube feeds. He will need placement to a assisted facility and has been accepted at some facilities. COVID-19 test is negative. 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 Hospitalist Physical - Physical exam Narrative exam: VITAL SIGNS: Reviewed. GENERAL: Awake HEAD: No signs of head trauma. EYES: Pupils are equal. Extraocular motions intact. MOUTH: Oropharynx is normal. NECK: No adenopathy, no JVD. CHEST: Chest with diminished breath sounds bilaterally. No wheezes, rales, or rhonchi. CARDIAC: normal S1 and S2, without murmurs, gallops, or rubs. ABDOMEN: Soft, non tender and non distended. No rebound or guarding, and no masses palpated. Bowel Sounds normal. MUSCULOSKELETAL: No edema NEUROLOGIC EXAM: Awake but nonverbal SKIN: No obvious lesions - Constitutional Vitals: Temp Pulse Resp BP Pulse Ox 99.0 F 74 18 150/80 98 11/26/20 06:47 11/26/20 06:47 11/26/20 06:47 11/26/20 06:47 11/26/20 06:47 HEART Score - HEART Score Troponin: Troponin T < 0.010 ng/mL (0.00-0.029) 11/11/20 09:02 Results - Labs CBC & Chem 7: 11/26/20 06:23 11/26/20 06:23 Labs: Laboratory Last Values WBC 9.3 K/mm3 (4.5-11.0) 11/26/20 06:23 RBC 4.01 M/mm3 (3.65-5.03) 11/26/20 06:23 Hgb 11.3 gm/dl (11.8-15.2) L 11/26/20 06:23 Hct 34.0 % (35.5-45.6) L 11/26/20 06:23 MCV 85 fl (84-94) 11/26/20 06:23 MCH 28 pg (28-32) 11/26/20 06:23 MCHC 33 % (32-34) 11/26/20 06:23 RDW 15.1 % (13.2-15.2) 11/26/20 06:23 Plt Count 328 K/mm3 (140-440) 11/26/20 06:23 Lymph % (Auto) 18.3 % (13.4-35.0) 11/26/20 06:23 [place] % (Auto) 9.8 % (0.0-7.3) H 11/26/20 06:23 Eos % (Auto) 1.1 % (0.0-4.3) 11/26/20 06:23 Baso % (Auto) 0.7 % (0.0-1.8) 11/26/20 06:23 Lymph # (Auto) 1.7 K/mm3 (1.2-5.4) 11/26/20 06:23 [place] # (Auto) 0.9 K/mm3 (0.0-0.8) H 11/26/20 06:23 Eos # (Auto) 0.1 K/mm3 (0.0-0.4) 11/26/20 06:23 Baso # (Auto) 0.1 K/mm3 (0.0-0.1) 11/26/20 06:23 Add Manual Diff Complete 11/23/20 15:24 Total Counted 100 11/23/20 15:24 Seg Neutrophils % 70.1 % (40.0-70.0) H 11/26/20 06:23 Seg Neuts % (Manual) 66.0 % (40.0-70.0) 11/23/20 15:24 Lymphocytes % (Manual) 23.0 % (13.4-35.0) 11/23/20 15:24 Monocytes % (Manual) 9.0 % (0.0-7.3) H 11/23/20 15:24 Eosinophils % (Manual) 2.0 % (0.0-4.3) 11/23/20 15:24 Nucleated RBC % Not Reportable 11/23/20 15:24 Seg Neutrophils # 9.5 K/mm3 (1.8-7.7) H 11/26/20 06:23 Seg Neutrophils # Man 8.8 K/mm3 (1.8-7.7) H 11/23/20 15:24 Band Neutrophils # 0.0 K/mm3 11/23/20 15:24 Lymphocytes # (Manual) 3.1 K/mm3 (1.2-5.4) 11/23/20 15:24 Abs React Lymphs (Man) 0.0 K/mm3 11/23/20 15:24 Monocytes # (Manual) 1.2 K/mm3 (0.0-0.8) H 11/23/20 15:24 Eosinophils # (Manual) 0.3 K/mm3 (0.0-0.4) 11/23/20 15:24 Basophils # (Manual) 0.0 K/mm3 (0.0-0.1) 11/23/20 15:24 Metamyelocytes # 0.0 K/mm3 11/23/20 15:24 Myelocytes # 0.0 K/mm3 11/23/20 15:24 Promyelocytes # 0.0 K/mm3 11/23/20 15:24 Blast Cells # 0.0 K/mm3 11/23/20 15:24 WBC Morphology Not Reportable 11/23/20 15:24 Hypersegmented Neuts Not Reportable 11/23/20 15:24 Hyposegmented Neuts Not Reportable 11/23/20 15:24 Hypogranular Neuts Not Reportable 11/23/20 15:24 Smudge Cells Not Reportable 11/23/20 15:24 Toxic Granulation Not Reportable 11/23/20 15:24 Toxic Vacuolation Not Reportable 11/23/20 15:24 Dohle Bodies Not Reportable 11/23/20 15:24 Pelger-Huet Anomaly Not Reportable 11/23/20 15:24 Fercho Rods Not Reportable 11/23/20 15:24 Platelet Estimate Not Reportable 11/23/20 15:24 Clumped Platelets Not Reportable 11/23/20 15:24 Plt Clumps, EDTA Not Reportable 11/23/20 15:24 Large Platelets Not Reportable 11/23/20 15:24 Giant Platelets Not Reportable 11/23/20 15:24 Platelet Satelliting Not Reportable 11/23/20 15:24 Plt Morphology Comment Not Reportable 11/23/20 15:24 RBC Morphology Not Reportable 11/23/20 15:24 Dimorphic RBCs Not Reportable 11/23/20 15:24 Polychromasia Not Reportable 11/23/20 15:24 Hypochromasia Not Reportable 11/23/20 15:24 Poikilocytosis Not Reportable 11/23/20 15:24 Anisocytosis Few 11/23/20 15:24 Microcytosis Not Reportable 11/23/20 15:24 Macrocytosis Not Reportable 11/23/20 15:24 Spherocytes Not Reportable 11/23/20 15:24 Pappenheimer Bodies Not Reportable 11/23/20 15:24 Sickle Cells Not Reportable 11/23/20 15:24 Target Cells Not Reportable 11/23/20 15:24 Tear Drop Cells Not Reportable 11/23/20 15:24 Ovalocytes Not Reportable 11/23/20 15:24 Helmet Cells Not Reportable 11/23/20 15:24 [place] Bodies Not Reportable 11/23/20 15:24 [place] Rings Not Reportable 11/23/20 15:24 [place] Cells Not Reportable 11/23/20 15:24 Bite Cells Not Reportable 11/23/20 15:24 Crenated Cell Not Reportable 11/23/20 15:24 Elliptocytes Not Reportable 11/23/20 15:24 Acanthocytes (Spur) Not Reportable 11/23/20 15:24 Rouleaux Not Reportable 11/23/20 15:24 Hemoglobin C Crystals Not Reportable 11/23/20 15:24 Schistocytes Not Reportable 11/23/20 15:24 Malaria parasites Not Reportable 11/23/20 15:24 Jones Bodies Not Reportable 11/23/20 15:24 Hem Pathologist Commnt No 11/23/20 15:24 PT 11.5 Sec. (12.2-14.9) L 11/11/20 09:02 INR 0.86 (0.87-1.13) L 11/11/20 09:02 APTT 25.5 Sec. (24.2-36.6) 11/11/20 09:02 Thrombin Time 17.0 Sec. (15.1-19.6) 11/11/20 09:02 ABG pH 7.499 (7.320-7.450) H 11/17/20 11:40 POC ABG pCO2 36.3 mmHg (32.0-48.0) 11/17/20 11:40 ABG pCO2 33.9 mm Hg 11/11/20 10:45 POC ABG pO2 140.8 mmHg (83-108) H 11/17/20 11:40 ABG pO2 222.2 mm Hg (80.0-90.0) H 11/11/20 10:45 POC ABG HCO3 27.6 11/17/20 11:40 ABG HCO3 24.9 mmol/L (20.0-26.0) 11/11/20 10:45 ABG O2 Saturation 98.1 (0-100) 11/17/20 11:40 ABG O2 Content 19.4 (0.0-44) 11/11/20 10:45 POC ABG Base Excess 4.4 11/17/20 11:40 ABG Base Excess 1.9 mmol/L (-2.0-3.0) 11/11/20 10:45 ABG Hemoglobin 11.8 (12.0-17.5) L 11/17/20 11:40 ABG Oxyhemoglobin 97.4 (94-98) 11/17/20 11:40 ABG Carboxyhemoglobin 0.6 % (0.0-5.0) 11/11/20 10:45 ABG Methemoglobin 0.3 (0.0-1.5) 11/17/20 11:40 ABG Sodium 135.1 mmol/L (136.0-145.0) L 11/17/20 11:40 ABG Potassium 4.2 mmol/L (3.40-4.50) 11/17/20 11:40 ABG Chloride 102.0 mmol/L (98-107) 11/17/20 11:40 ABG Glucose 110 mg/dL (65-95) H 11/17/20 11:40 Oxyhemoglobin 98.5 % (95.0-99.0) 11/11/20 10:45 Carboxyhemoglobin 0.4 (0.5-1.5) L 11/17/20 11:40 FiO2 21 % 11/11/20 10:45 FiO2 % 30 11/17/20 11:40 Sodium 128 mmol/L (137-145) L 11/26/20 06:23 Potassium 4.8 mmol/L (3.6-5.0) 11/26/20 06:23 Chloride 93.2 mmol/L (98-107) L 11/26/20 06:23 Carbon Dioxide 28 mmol/L (22-30) 11/26/20 06:23 Anion Gap 12 mmol/L 11/26/20 06:23 BUN 15 mg/dL (9-20) 11/26/20 06:23 Creatinine 0.7 mg/dL (0.8-1.3) L 11/26/20 06:23 Estimated GFR > 60 ml/min 11/26/20 06:23 BUN/Creatinine Ratio 21 % 11/26/20 06:23 Glucose 99 mg/dL (75-100) 11/26/20 06:23 POC Glucose 122 mg/dL (70-105) H 11/26/20 00:01 Hemoglobin A1c 5.4 % (4-6) 11/12/20 07:26 Calcium 8.8 mg/dL (8.4-10.2) 11/26/20 06:23 Magnesium 2.00 mg/dL (1.7-2.3) 11/11/20 09:02 Total Bilirubin 0.40 mg/dL (0.1-1.2) 11/26/20 06:23 AST 52 units/L (5-40) H 11/26/20 06:23 ALT 34 units/L (7-56) 11/26/20 06:23 Alkaline Phosphatase 141 units/L (35-129) H 11/26/20 06:23 Ammonia 29.0 umol/L (25-60) 11/12/20 08:47 Total Creatine Kinase 169 units/L (55-170) 11/11/20 09:02 CK-MB (CK-2) 6.6 ng/mL (0.0-4.0) H 11/11/20 09:02 CK-MB (CK-2) Rel Index 3.9 (0-4) 11/11/20 09:02 Troponin T < 0.010 ng/mL (0.00-0.029) 11/11/20 09:02 Total Protein 6.1 g/dL (6.3-8.2) L 11/26/20 06:23 Albumin 2.8 g/dL (3.9-5) L 11/26/20 06:23 Albumin/Globulin Ratio 0.8 % 11/26/20 06:23 Arterial Blood Glucose 110 mg/dL (65-95) H 11/17/20 11:40 Arterial Blood Ionized Calcium 4.9 mg/dL (4.6-5.3) 11/17/20 11:40 Urine Color Yellow (Yellow) 11/11/20 20:27 Urine Turbidity Clear (Clear) 11/11/20 20: Urine pH 6.0 (5.0-7.0) 11/11/20 20:27 Ur Specific Waves 1.045 (1.003-1.030) H 11/11/20 20:27 Urine Protein 100 mg/dl mg/dL (Negative) 11/11/20 20: Urine Glucose (UA) Neg mg/dL (Negative) 03/11/21 20:27 Urine Ketones Neg mg/dL (Negative) 11/11/20 20:27 Urine Blood Sm (Negative) 11/11/20 20:27 Urine Nitrite Neg (Negative) 11/11/20 20:27 Urine Bilirubin Neg (Negative) 11/11/20 20:27 Urine Urobilinogen 4.0 mg/dL (<2.0) 11/11/20 20:27 Ur Leukocyte Esterase Neg (Negative) 11/11/20 20:27 Urine WBC (Auto) 1.0 /HPF (0.0-6.0) 11/11/20 20: Urine RBC (Auto) 4.0 /HPF (0.0-6.0) 11/11/20 20:27 U Epithel Cells (Auto) 12.0 /HPF (0-13.0) 11/11/20 20:27 Urine Bacteria (Auto) 1+ /HPF (Negative) 11/11/20 20:27 Urine Mucus Few /HPF 11/11/20 20:27 Urine Opiates Screen Negative 11/11/20 20:27 Urine Methadone Screen Negative 11/11/20 20:27 Ur Barbiturates Screen Positive 11/11/20 20:27 Ur Phencyclidine Scrn Negative 11/11/20 20:27 Ur Amphetamines Screen Negative 11/11/20 20:27 Phenobarbital 4.3 ug/mL (15.0-40.0) L 11/12/20 08:47 U Benzodiazepines Scrn Negative 11/11/20 20:27 Urine Cocaine Screen Negative 11/11/20 20:27 U Marijuana (THC) Screen Negative 11/11/20 20:27 Drugs of Abuse Note Disclamer 11/11/20 20:27 Plasma/Serum Alcohol < 0.01 % (0-0.07) 11/11/20 09:02 Coronavirus (PCR) Negative (Negative) 11/23/20 Unknown [place]/IV: Voiding Method Incontinent Active Medications - Current Medications Current Medications: Generic Name Dose Route Start Last Admin Trade Name Freq PRN Reason Stop Dose Admin Acetaminophen 650 mg 11/11/20 22:58 Acetaminophen 325 Mg Tab PO Q4H PRN Pain MILD(1-3)/Fever >100.5/BAR Albuterol 2.5 mg 11/11/20 23:18 Albuterol 2.5 Mg/3 Ml Nebu IH Q3HRT PRN Wheezing Lipase/Protease/Amylase 1 each 11/12/20 12:00 Lipase 10,500/Protease 25,000/Amylase 43,750 (Units) Dr Rangel FEEDTUBE PRN PRN For Clogged Feeding Tube Dextrose 50 ml 11/11/20 22:11 11/17/20 23:29 Dextrose 50% In Water (25gm) 50 Ml Syringe IV 10 ml ONCE PRN Administration Hypoglycemia Protocol Enoxaparin Sodium 40 mg 11/12/20 22:00 11/25/20 23:52 Enoxaparin 40 Mg/0.4 Ml Inj SUB-Q 40 mg QDAY@2200 KIRK Administration Protocol Folic Acid 1 mg 11/16/20 10:00 11/26/20 09:29 Folic Acid 1 Mg Tab PO 1 mg DAILY KIRK Administration Hydralazine HCl 10 mg 11/12/20 10:30 11/14/20 07:30 Hydralazine 20 Mg/1 Ml Inj IV 10 mg Q4H PRN Administration Hypertension Hydrophilic Ointment 1 applic 11/11/20 09:14 Lip Therapy Vaseline TP Q2HR PRN Dry Lips Insulin Human Regular 0 units 11/12/20 18:00 11/26/20 05:56 Insulin Regular, Human 100 Units/1 Ml SUB-Q Not Given Q6H [facility] Protocol Lansoprazole 30 mg 11/24/20 10:00 11/26/20 09:30 Lansoprazole 30 Mg Solutab FEEDTUBE 30 mg QDAY KIRK Administration Levetiracetam 1,000 mg 11/24/20 10:00 11/26/20 09:29 Levetiracetam 500 Mg/5 Ml Oral Liqd FEEDTUBE 1,000 mg BID KIRK Administration Metoclopramide HCl 10 mg 11/11/20 22:58 Metoclopramide 10 Mg/2 Ml Inj IV Q6H PRN Nausea And Vomiting Multi-Ingred Cream/Lotion/Oil/Oint 1 applic 11/11/20 09:14 Mineral Oil/Petrolatum, White Ophth Oint 3.5 Gm OU Q4HR PRN Dry Eye(s) Multivitamins 1 each 11/13/20 00:00 11/25/20 23:51 Multivitamins ,Therapeutic Tab PO 1 each Q24H KIRK Administration Naloxone HCl 2 mg 11/11/20 08:33 Naloxone 0.4 Mg/1 Ml Inj IV Q2MIN PRN Res Rate </= 8 or 02 SAT < 92% Ondansetron HCl 4 mg 11/11/20 22:58 Ondansetron 4 Mg/2 Ml Inj IV Q3H PRN Nausea And Vomiting Phenobarbital 15 mg 11/11/20 23:45 11/26/20 09:57 Phenobarbital 15 Mg Tab PO 15 mg BID KIRK Administration Simple Syrup 15 ml 11/12/20 12:00 Simple Syrup 15 Ml FEEDTUBE PRN PRN Hypoglycemia Simple Syrup 30 ml 11/12/20 12:00 Simple Syrup 15 Ml FEEDTUBE PRN PRN Hypoglycemia Sodium Bicarbonate 325 mg 11/12/20 12:00 Sodium Bicarbonate 325 Mg Tab FEEDTUBE PRN PRN For Clogged Feeding Tube Sodium Chloride 10 ml 11/11/20 23:00 11/26/20 09:38 Sodium Chloride 0.9% 10 Ml Flush Syringe IV 10 ml BID KIRK Administration Sodium Chloride 10 ml 11/11/20 22:58 Sodium Chloride 0.9% 10 Ml Flush Syringe IV PRN PRN LINE FLUSH Sodium Chloride 2 gm 11/23/20 22:00 11/26/20 09:31 Sodium Chloride 1 Gm Tab PO 2 gm BID KIRK Administration Thiamine HCl 100 mg 11/16/20 10:00 11/26/20 09:29 Thiamine 100 Mg Tab PO 100 mg QDAY KIRK Administration Nutrition/Malnutrition Assess - Dietary Evaluation Nutrition/Malnutrition Findings: Nutrition Notes Start: 11/12/20 08:26 Freq: Status: Active Protocol: Document 11/24/20 12:16 (Rec: 11/24/20 12:21 [email or web address]) Nutrition Notes Initial or Follow up Reassessment Current Diagnosis Respiratory Failure,Stroke Other Pertinent Diagnosis Seizures Current Diet Jevity 1.2 at 60 ml/hr Labs/Tests 11/23: Na 129 Pertinent Medications Thiamine D5 .45 NS at 75 ml/hr MVI Height 5 ft 9 in Weight 60 kg Bee Body Weight (kg) 72.72 BMI 19.5 Weight change and time frame 14% wt loss in 2 weeks, unsure of accuracy Weight Status Underweight Subjective/Other Information FU for plan of care. PEG placed and pt tolerating TF at 40 ml/hr. Percent of energy/protein needs met: 70%/80% Burn Absent Trauma Absent GI Symptoms None Current % PO Negligible Minimum of two criteria No physical signs of malnutrition #2 Nutrition Diagnosis Inadequate energy intake Diagnosis Progress(for reassessment Continues documentation) #1 Nutrition Diagnosis Inadequate oral intake Diagnosis Progress(for reassessment Continues documentation) Is patient on ventilator? No Is Patient Ambulatory and/or Out of Bed No REE-([facility]-confined to bed) [phone] Calculation Used for Recommendations [facility] Additional Notes Protein: 70-84 g (1.0-1.2 g/kg ABW) Fluid: 1 ml/kcal Nutrition Intervention Change Diet Order: TF Nutrition Support: Jevity 1.2 at 60 ml/hr Flush 100 mL Kcal 1,728 Protein (gm) 80 Fluid (mL) 1,162 Goal #1 Meet at least 75% of estimated energy and protein needs via TF Anticipated Discharge Needs: Unable to determine at the time Follow-Up By: 11/26/20 Additional Comments FU for stable TF
[2020-11-26] MEDS: ENOXAPARIN 40 MG/0.4 ML INJ SUB-Q SCH (22:32)
[2020-11-26] MEDS: MULTIVITAMINS ,THERAPEUTIC TAB PO SCH (23:14)
[2020-11-27] MEDS: INSULIN REGULAR, HUMAN 100 UNITS/1 ML SUB-Q SCH ×4 (00:09→17:53)
[2020-11-27 06:21] LABS: Hematocrit 33.2 % (35.5-45.6); Hemoglobin 11.3 gm/dl (11.8-15.2); Mean Corpuscular HGB Conc 34 % (32-34); Mean Corpuscular Volume 84 fl (84-94); Platelet Count 353 K/mm3 (140-440); Red Blood Count 3.97 M/mm3 (3.65-5.03); Red Cell Distribution Width 15.3 % (13.2-15.2)
[2020-11-27 06:42] LABS: Alanine Aminotransferase 29 units/L (7-56); Albumin 2.9 g/dL (3.9-5); Blood Urea Nitrogen 17 mg/dL (9-20); Calcium 8.7 mg/dL (8.4-10.2); Hemolysis Index 2
[2020-11-27 06:51] LABS: BUN/Creatinine Ratio 28
[2020-11-27] MEDS ORDERED: SODIUM CHLORIDE 0.9% 1000 ML 1,000 ML IV SCH (07:30)
--- NOTE | 2020-11-27 09:57 | Progress Note ---
Assessment and Plan Assessment and plan: #Acute hypoxic respiratory failure Now extubated Improved. Now on 2-1/2 L of oxygen # Acute metabolic encephalopathy Baseline unknown Has no ongoing infective process MRI brain is negative This could be his baseline #Seizure disorder Continue antiseizure medications No further seizures CT head and brain MRI showed no etiology for seizure #SIRS Etiology unknown-urinalysis negative, chest x-ray also negative COVID-19 test negative Discontinued antibiotics #Needs ENT as outpatient for evaluation of upper airway. He has no carcinoma as written in previous notes Needs further evaluation of liver lesion with MRI as outpatient Also needs to follow up with pulmonary in the office #Dysphagia s/p PEG placement #Hyponatremia Remains on salt tablets Check osmolality, electrolytes #DVT prophylaxis-SCDs, Lovenox #GI prophylaxis-PPIs #Disposition-Pending placement History Interval history: This is a 60-year-old male with seizure disorder current alcohol and tobacco abuse presents to the hospital on 11/11 after being found unresponsive. On arrival of EMS patient was found to be hypoglycemic and given IV dextrose after which he recovered and refused further care. EMS was called again by family after the patient was found unresponsive and was given Narcan with no change. Patient was noted to have seizure activity and given 7 mg IV Ativan total i ncluding 3 from EMS. Patient was loaded with Keppra 2 g and was intubated for airway protection. Patient was found to have metabolic acidosis and hypoglycemia on BMP. Patient was found to be hypothermic and hypertensive in the emergency department. Patient's UDS was positive for barbiturates. Patient was admitted to the hospital service for further work-up with consults to [facility] and neurology. 11/12. Patient remains intubated. On Keppra and phenobarbital. Neurology evaluation appreciated. EEG ordered. May need transfer to tertiary care for continuous EEG pending EEG results. 11/13. Remains intubated and on antiseizure medications. EEG has been performed but results are pending. Neurology on board 11/14. Remains intubated and on antiseizure medications. EEG has been performed but results are pending. Neurology on board 11/15: EEG is consistent with significant encephalopathy and does not rule out the possibility of epilepsy, patient remains on mechanical ventilation with m inimal vent settings. No acute events reported overnight. 11/16: No acute events reported overnight, patient opens eyes spontaneously and withdraws to pain bilateral lower extremities. At the time my examination patient was on CMV 450/18/64/0.30 and has been started on a CPAP trial subsequently. No evidence of generalized seizures noted. Patient is a lui of the state 11/17: Patient was extubated today per CCM, no acute events reported overnight. Patient has a right sided gaze during my examination and was on CPAP 10/6 at 30% and he opens his eyes spontaneously. He does withdraw bilateral lower extremities to pain. His Keppra was decreased yesterday. ST evaluation pending 11/18: Follow-up EEG reading. Patient currently off sedation. Nursing to place Dobbhoff tube for feeding. Speech therapy to continue swallow evaluation. No new seizure activity. Continue phenobarbital and Keppra. Seizure precautions. Transfer to [facility] today. 11/19: Dobbhoff tube with removal difficulty yesterday. 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 CT scan of the chest revealed pulmonary nodule and lesion in the liver suggestive of metastatic disease. GI consultation pending. Patient was electively intubated yesterday for airway protection. Extubation today per pulmonary 11/20: Await speech therapy evaluation. Patient will likely need PEG tube placement. Consult GI for further evaluation. Oncology consultation for likely metastatic disease. 11/21: Await GI consultation. Appreciate oncology evaluation. 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 Check MRI brain to rule out brain metastasis. Poor prognosis. 11/22: GI recommends tissue diagnosis either with ENT involvement and evaluation of epiglottis mass with biopsy vs biopsy of the liver lesion. Follow-up with case management for obtaining consent for possible PEG tube placement 11/23. Brain MRI showed no brain metastasis. Plan for EGD as per GI. Patient will need possible ENT evaluation of mass with biopsy or biopsy of the liver lesion. 11/24. EGD shows no mass in the oropharynx. PEG was placed during EGD and patient has been started on tube feeds. He will need placement to a care home facility and has been accepted at some facilities. COVID-19 test is negative. medical billing manager trying to arrange for further paperwork prior to discharge. 11/25 -11/27. Sodium trending down. Check osmolality, urine electrolytes. Continue salt tablets. Hospitalist Physical - Physical exam Narrative exam: VITAL SIGNS: Reviewed. GENERAL: Awake HEAD: No signs of head trauma. EYES: Pupils are equal. Extraocular motions intact. MOUTH: Oropharynx is normal. NECK: No adenopathy, no JVD. CHEST: Chest with diminished breath sounds bilaterally. No wheezes, rales, or rhonchi. CARDIAC: normal S1 and S2, without murmurs, gallops, or rubs. ABDOMEN: Soft, non tender and non distended. No rebound or guarding, and no masses palpated. Bowel Sounds normal. MUSCULOSKELETAL: No edema NEUROLOGIC EXAM: Awake but nonverbal SKIN: No obvious lesions - Constitutional Vitals: Temp Pulse Resp BP Pulse Ox 99.0 F 72 20 131/84 97 11/27/20 06:21 11/27/20 06:21 11/27/20 06:21 11/27/20 06:21 11/27/20 06:21 General appearance: Present: no acute distress, other (unresponsive) HEART Score - HEART Score Troponin: Troponin T < 0.010 ng/mL (0.00-0.029) 11/11/20 09:02 Results - Labs CBC & Chem 7: 11/27/20 05:50 11/27/20 07:51 Labs: Laboratory Last Values WBC 8.6 K/mm3 (4.5-11.0) 11/27/20 05:50 RBC 3.97 M/mm3 (3.65-5.03) 11/27/20 05:50 Hgb 11.3 gm/dl (11.8-15.2) L 11/27/20 05:50 Hct 33.2 % (35.5-45.6) L 11/27/20 05:50 MCV 84 fl (84-94) 11/27/20 05:50 MCH 28 pg (28-32) 11/27/20 05:50 MCHC 34 % (32-34) 11/27/20 05:50 RDW 15.3 % (13.2-15.2) H 11/27/20 05:50 Plt Count 353 K/mm3 (140-440) 11/27/20 05:50 Lymph % (Auto) 18.3 % (13.4-35.0) 11/26/20 06:23 [place] % (Auto) 9.8 % (0.0-7.3) H 11/26/20 06:23 Eos % (Auto) 1.1 % (0.0-4.3) 11/26/20 06:23 Baso % (Auto) 0.7 % (0.0-1.8) 11/26/20 06:23 Lymph # (Auto) 1.7 K/mm3 (1.2-5.4) 11/26/20 06:23 [place] # (Auto) 0.9 K/mm3 (0.0-0.8) H 11/26/20 06:23 Eos # (Auto) 0.1 K/mm3 (0.0-0.4) 11/26/20 06:23 Baso # (Auto) 0.1 K/mm3 (0.0-0.1) 11/26/20 06:23 Add Manual Diff Complete 11/23/20 15:24 Total Counted 100 11/23/20 15:24 Seg Neutrophils % 70.1 % (40.0-70.0) H 11/26/20 06:23 Seg Neuts % (Manual) 66.0 % (40.0-70.0) 11/23/20 15:24 Lymphocytes % (Manual) 23.0 % (13.4-35.0) 11/23/20 15:24 Monocytes % (Manual) 9.0 % (0.0-7.3) H 11/23/20 15:24 Eosinophils % (Manual) 2.0 % (0.0-4.3) 11/23/20 15:24 Nucleated RBC % Not Reportable 11/23/20 15:24 Seg Neutrophils # 9.5 K/mm3 (1.8-7.7) H 11/26/20 06:23 Seg Neutrophils # Man 8.8 K/mm3 (1.8-7.7) H 11/23/20 15:24 Band Neutrophils # 0.0 K/mm3 11/23/20 15:24 Lymphocytes # (Manual) 3.1 K/mm3 (1.2-5.4) 11/23/20 15:24 Abs React Lymphs (Man) 0.0 K/mm3 11/23/20 15:24 Monocytes # (Manual) 1.2 K/mm3 (0.0-0.8) H 11/23/20 15:24 Eosinophils # (Manual) 0.3 K/mm3 (0.0-0.4) 11/23/20 15:24 Basophils # (Manual) 0.0 K/mm3 (0.0-0.1) 11/23/20 15:24 Metamyelocytes # 0.0 K/mm3 11/23/20 15:24 Myelocytes # 0.0 K/mm3 11/23/20 15:24 Promyelocytes # 0.0 K/mm3 11/23/20 15:24 Blast Cells # 0.0 K/mm3 11/23/20 15:24 WBC Morphology Not Reportable 11/23/20 15:24 Hypersegmented Neuts Not Reportable 11/23/20 15:24 Hyposegmented Neuts Not Reportable 11/23/20 15:24 Hypogranular Neuts Not Reportable 11/23/20 15:24 Smudge Cells Not Reportable 11/23/20 15:24 Toxic Granulation Not Reportable 11/23/20 15:24 Toxic Vacuolation Not Reportable 11/23/20 15:24 Dohle Bodies Not Reportable 11/23/20 15:24 Pelger-Huet Anomaly Not Reportable 11/23/20 15:24 Fercho Rods Not Reportable 11/23/20 15:24 Platelet Estimate Not Reportable 11/23/20 15:24 Clumped Platelets Not Reportable 11/23/20 15:24 Plt Clumps, EDTA Not Reportable 11/23/20 15:24 Large Platelets Not Reportable 11/23/20 15:24 Giant Platelets Not Reportable 11/23/20 15:24 Platelet Satelliting Not Reportable 11/23/20 15:24 Plt Morphology Comment Not Reportable 11/23/20 15:24 RBC Morphology Not Reportable 11/23/20 15:24 Dimorphic RBCs Not Reportable 11/23/20 15:24 Polychromasia Not Reportable 11/23/20 15:24 Hypochromasia Not Reportable 11/23/20 15:24 Poikilocytosis Not Reportable 11/23/20 15:24 Anisocytosis Few 11/23/20 15:24 Microcytosis Not Reportable 11/23/20 15:24 Macrocytosis Not Reportable 11/23/20 15:24 Spherocytes Not Reportable 11/23/20 15:24 Pappenheimer Bodies Not Reportable 11/23/20 15:24 Sickle Cells Not Reportable 11/23/20 15:24 Target Cells Not Reportable 11/23/20 15:24 Tear Drop Cells Not Reportable 11/23/20 15:24 Ovalocytes Not Reportable 11/23/20 15:24 Helmet Cells Not Reportable 11/23/20 15:24 [place] Bodies Not Reportable 11/23/20 15:24 Massey Rings Not Reportable 11/23/20 15:24 Borup Cells Not Reportable 11/23/20 15:24 Bite Cells Not Reportable 11/23/20 15:24 Crenated Cell Not Reportable 11/23/20 15:24 Elliptocytes Not Reportable 11/23/20 15:24 Acanthocytes (Spur) Not Reportable 11/23/20 15:24 Rouleaux Not Reportable 11/23/20 15:24 Hemoglobin C Crystals Not Reportable 11/23/20 15:24 Schistocytes Not Reportable 11/23/20 15:24 Malaria parasites Not Reportable 11/23/20 15:24 Jones Bodies Not Reportable 11/23/20 15:24 Hem Pathologist Commnt No 11/23/20 15:24 PT 11.5 Sec. (12.2-14.9) L 11/11/20 09:02 INR 0.86 (0.87-1.13) L 11/11/20 09:02 APTT 25.5 Sec. (24.2-36.6) 11/11/20 09:02 Thrombin Time 17.0 Sec. (15.1-19.6) 11/11/20 09:02 ABG pH 7.499 (7.320-7.450) H 11/17/20 11:40 POC ABG pCO2 36.3 mmHg (32.0-48.0) 11/17/20 11:40 ABG pCO2 33.9 mm Hg 11/11/20 10:45 POC ABG pO2 140.8 mmHg (83-108) H 11/17/20 11:40 ABG pO2 222.2 mm Hg (80.0-90.0) H 11/11/20 10:45 POC ABG HCO3 27.6 11/17/20 11:40 ABG HCO3 24.9 mmol/L (20.0-26.0) 11/11/20 10:45 ABG O2 Saturation 98.1 (0-100) 11/17/20 11:40 ABG O2 Content 19.4 (0.0-44) 11/11/20 10:45 POC ABG Base Excess 4.4 11/17/20 11:40 ABG Base Excess 1.9 mmol/L (-2.0-3.0) 11/11/20 10:45 ABG Hemoglobin 11.8 (12.0-17.5) L 11/17/20 11:40 ABG Oxyhemoglobin 97.4 (94-98) 11/17/20 11:40 ABG Carboxyhemoglobin 0.6 % (0.0-5.0) 11/11/20 10:45 ABG Methemoglobin 0.3 (0.0-1.5) 11/17/20 11:40 ABG Sodium 135.1 mmol/L (136.0-145.0) L 11/17/20 11:40 ABG Potassium 4.2 mmol/L (3.40-4.50) 11/17/20 11:40 ABG Chloride 102.0 mmol/L (98-107) 11/17/20 11:40 ABG Glucose 110 mg/dL (65-95) H 11/17/20 11:40 Oxyhemoglobin 98.5 % (95.0-99.0) 11/11/20 10:45 Carboxyhemoglobin 0.4 (0.5-1.5) L 11/17/20 11:40 FiO2 21 % 11/11/20 10:45 FiO2 % 30 11/17/20 11:40 Sodium 127 mmol/L (137-145) L 11/27/20 05:50 Potassium 4.5 mmol/L (3.6-5.0) 11/27/20 05:50 Chloride 91.8 mmol/L (98-107) L 11/27/20 05:50 Carbon Dioxide 28 mmol/L (22-30) 11/27/20 05:50 Anion Gap 12 mmol/L 11/27/20 05:50 BUN 17 mg/dL (9-20) 11/27/20 05:50 Creatinine 0.6 mg/dL (0.8-1.3) L 11/27/20 05:50 Estimated GFR > 60 ml/min 11/27/20 05:50 BUN/Creatinine Ratio 28 % 11/27/20 05:50 Glucose 119 mg/dL (75-100) H 11/27/20 05:50 POC Glucose 112 mg/dL (70-105) H 11/27/20 07:50 Hemoglobin A1c 5.4 % (4-6) 11/12/20 07:26 Calcium 8.7 mg/dL (8.4-10.2) 11/27/20 05:50 Magnesium 2.00 mg/dL (1.7-2.3) 11/11/20 09:02 Total Bilirubin 0.40 mg/dL (0.1-1.2) 11/27/20 05:50 AST 38 units/L (5-40) 11/27/20 05:50 ALT 29 units/L (7-56) 11/27/20 05:50 Alkaline Phosphatase 131 units/L (35-129) H 11/27/20 05:50 Ammonia 29.0 umol/L (25-60) 11/12/20 08:47 Total Creatine Kinase 169 units/L (55-170) 11/11/20 09:02 CK-MB (CK-2) 6.6 ng/mL (0.0-4.0) H 11/11/20 09:02 CK-MB (CK-2) Rel Index 3.9 (0-4) 11/11/20 09:02 Troponin T < 0.010 ng/mL (0.00-0.029) 11/11/20 09:02 Total Protein 6.9 g/dL (6.3-8.2) 11/27/20 05:50 Albumin 2.9 g/dL (3.9-5) L 11/27/20 05:50 Albumin/Globulin Ratio 0.7 % 11/27/20 05:50 Arterial Blood Glucose 110 mg/dL (65-95) H 11/17/20 11:40 Arterial Blood Ionized Calcium 4.9 mg/dL (4.6-5.3) 11/17/20 11:40 Urine Color Yellow (Yellow) 11/11/20 20:27 Urine Turbidity Clear (Clear) 11/11/20 20: Urine pH 6.0 (5.0-7.0) 11/11/20 20:27 Ur Specific [place] 1.045 (1.003-1.030) H 11/11/20 20:27 Urine Protein 100 mg/dl mg/dL (Negative) 11/11/20 20:27 Urine Glucose (UA) Neg mg/dL (Negative) 11/11/20 20:27 Urine Ketones Neg mg/dL (Negative) 11/11/20 20:27 Urine Blood Sm (Negative) 11/11/20 20:27 Urine Nitrite Neg (Negative) 11/11/20 20:27 Urine Bilirubin Neg (Negative) 11/11/20 20:27 Urine Urobilinogen 4.0 mg/dL (<2.0) 11/11/20 20:27 Ur Leukocyte Esterase Neg (Negative) 11/11/20 20:27 Urine WBC (Auto) 1.0 /HPF (0.0-6.0) 11/11/20 20:27 Urine RBC (Auto) 4.0 /HPF (0.0-6.0) 11/11/20 20:27 U Epithel Cells (Auto) 12.0 /HPF (0-13.0) 11/11/20 20:27 Urine Bacteria (Auto) 1+ /HPF (Negative) 11/11/20 20:27 Urine Mucus Few /HPF 11/11/20 20:27 Urine Opiates Screen Negative 11/11/20 20:27 Urine Methadone Screen Negative 11/11/20 20:27 Ur Barbiturates Screen Positive 11/11/20 20:27 Ur Phencyclidine Scrn Negative 11/11/20 20:27 Ur Amphetamines Screen Negative 11/11/20 20:27 Phenobarbital 4.3 ug/mL (15.0-40.0) L 11/12/20 08:47 U Benzodiazepines Scrn Negative 11/11/20 20:27 Urine Cocaine Screen Negative 11/11/20 20:27 U Marijuana (THC) Screen Negative 11/11/20 20:27 Drugs of Abuse Note Disclamer 11/11/20 20:27 Plasma/Serum Alcohol < 0.01 % (0-0.07) 11/11/20 09:02 Coronavirus (PCR) Negative (Negative) 11/23/20 Unknown [place]/IV: Voiding Method Condom Catheter Active Medications - Current Medications Current Medications: Generic Name Dose Route Start Last Admin Trade Name Freq PRN Reason Stop Dose Admin Acetaminophen 650 mg 11/11/20 22:58 Acetaminophen 325 Mg Tab PO Q4H PRN Pain MILD(1-3)/Fever >100.5/BAR Albuterol 2.5 mg 11/11/20 23:18 Albuterol 2.5 Mg/3 Ml Nebu IH Q3HRT PRN Wheezing Lipase/Protease/Amylase 1 each 11/12/20 12:00 Lipase 10,500/Protease 25,000/Amylase 43,750 (Units) Dr Rangel FEEDTUBE PRN PRN For Clogged Feeding Tube Dextrose 50 ml 11/11/20 22:11 11/17/20 23:29 Dextrose 50% In Water (25gm) 50 Ml Syringe IV 10 ml ONCE PRN Administration Hypoglycemia Protocol Enoxaparin Sodium 40 mg 11/12/20 22:00 11/26/20 22:32 Enoxaparin 40 Mg/0.4 Ml Inj SUB-Q 40 mg QDAY@2200 KIRK Administration Protocol Folic Acid 1 mg 11/16/20 10:00 11/26/20 09:29 Folic Acid 1 Mg Tab PO 1 mg DAILY KIRK Administration Hydralazine HCl 10 mg 11/12/20 10:30 11/14/20 07:30 Hydralazine 20 Mg/1 Ml Inj IV 10 mg Q4H PRN Administration Hypertension Hydrophilic Ointment 1 applic 11/11/20 09:14 Lip Therapy Vaseline TP Q2HR PRN Dry Lips Sodium Chloride 1,000 mls @ 42 mls/hr 11/27/20 07:30 Nacl 0.9% 1000 Ml IV DIRECT [facility] Insulin Human Regular 0 units 11/12/20 18:00 11/27/20 08:02 Insulin Regular, Human 100 Units/1 Ml SUB-Q Not Given Q6H [facility] Protocol Lansoprazole 30 mg 11/24/20 10:00 11/26/20 09:30 Lansoprazole 30 Mg Solutab FEEDTUBE 30 mg QDAY KIRK Administration Levetiracetam 1,000 mg 11/24/20 10:00 11/26/20 22:31 Levetiracetam 500 Mg/5 Ml Oral Liqd FEEDTUBE 1,000 mg BID KIRK Administration Metoclopramide HCl 10 mg 11/11/20 22:58 Metoclopramide 10 Mg/2 Ml Inj IV Q6H PRN Nausea And Vomiting Multi-Ingred Cream/Lotion/Oil/Oint 1 applic 11/11/20 09:14 Mineral Oil/Petrolatum, White Ophth Oint 3.5 Gm OU Q4HR PRN Dry Eye(s) Multivitamins 1 each 11/13/20 00:00 11/26/20 23:14 Multivitamins ,Therapeutic Tab PO 1 each Q24H KIRK Administration Naloxone HCl 2 mg 11/11/20 08:33 Naloxone 0.4 Mg/1 Ml Inj IV Q2MIN PRN Res Rate </= 8 or 02 SAT < 92% Ondansetron HCl 4 mg 11/11/20 22:58 Ondansetron 4 Mg/2 Ml Inj IV Q3H PRN Nausea And Vomiting Phenobarbital 15 mg 11/11/20 23:45 11/26/20 22:32 Phenobarbital 15 Mg Tab PO 15 mg BID KIRK Administration Simple Syrup 15 ml 11/12/20 12:00 Simple Syrup 15 Ml FEEDTUBE PRN PRN Hypoglycemia Simple Syrup 30 ml 11/12/20 12:00 Simple Syrup 15 Ml FEEDTUBE PRN PRN Hypoglycemia Sodium Bicarbonate 325 mg 11/12/20 12:00 Sodium Bicarbonate 325 Mg Tab FEEDTUBE PRN PRN For Clogged Feeding Tube Sodium Chloride 10 ml 11/11/20 23:00 11/26/20 22:33 Sodium Chloride 0.9% 10 Ml Flush Syringe IV 10 ml BID KIRK Administration Sodium Chloride 10 ml 11/11/20 22:58 Sodium Chloride 0.9% 10 Ml Flush Syringe IV PRN PRN LINE FLUSH Sodium Chloride 2 gm 11/23/20 22:00 11/26/20 22:35 Sodium Chloride 1 Gm Tab PO 2 gm BID KIRK Administration Thiamine HCl 100 mg 11/16/20 10:00 11/26/20 09:29 Thiamine 100 Mg Tab PO 100 mg QDAY KIRK Administration Nutrition/Malnutrition Assess - Dietary Evaluation Nutrition/Malnutrition Findings: Nutrition Notes Start: 11/12/20 08:26 Freq: Status: Active Protocol: Document 11/26/20 10:59 CW (Rec: 11/26/20 11:06 CW [email or web address]) Nutrition Notes Initial or Follow up Reassessment Current Diagnosis Respiratory Failure,Stroke Other Pertinent Diagnosis Seizures, Neurogenic Dysphagia Current Diet Jevity 1.2 at 60 ml/hr Labs/Tests Na 128 Pertinent Medications Thiamine Folic Acid Height 5 ft 9 in Weight 63.2 kg Usual Body Weight 70 kg [place] Body Weight (kg) 72.72 BMI 20.5 Weight change and time frame -10% weight change x 14 days. Weight on 10/01 was 68.039 indicating UBW around 70 kg Weight Status Underweight Subjective/Other Information F/U TF tolerance. Per nursing notes pt is tolerating TF at goal of 60 ml/hr. Pt now with dx of neurogenic dysphagia. POC is to go to SNF with TF regimen. RD conducted reweight . -10% weight loss x 1 month being treated with TF. Percent of energy/protein needs met: 106%/114% Burn Absent Trauma Absent GI Symptoms None Difficulty In Swallowing Current % PO Negligible Minimum of two criteria Yes Interpretation of Weight Loss (severe) >5% in 1 month #2 Nutrition Diagnosis Inadequate energy intake As Evidenced by Signs and Symptoms TF running at goal of 60 ml/hr Diagnosis Progress(for reassessment Improved documentation) #1 Nutrition Diagnosis Inadequate oral intake As Evidenced by Signs and Symptoms new dx of neurogenic dysphagia Diagnosis Progress(for reassessment Worsened documentation) Is patient on ventilator? No Is Patient Ambulatory and/or Out of Bed No REE-(Morris-St. Jeor-confined to bed) 8415.977 Calculation Used for Recommendations [facility] [employer] [facility] Additional Notes Protein: 70-84 g (1.0-1.2 g/kg ABW) Fluid: 1 ml/kcal Nutrition Intervention Change Diet Order: TF Nutrition Support: Jevity 1.2 at 60 ml/hr Flush 100 mL Kcal 1,728 Protein (gm) 80 Fluid (mL) 1,162 Goal #1 Meet at least 75% of estimated energy and protein needs via TF Goal #2 weight stability/increase Anticipated Discharge Needs: TF Jevity 1.2 at 60 ml/h Follow-Up By: 11/30/20 Additional Comments F/U for stable TF and weight
[2020-11-27] MEDS: LANSOPRAZOLE 30 MG SOLUTAB FEEDTUBE SCH (10:36)
[2020-11-27] MEDS: SODIUM CHLORIDE 1 GM TAB PO SCH ×2 (10:36→22:46)
[2020-11-27] MEDS: levETIRAcetam 500 MG/5 ML ORAL LIQD FEEDTUBE SCH ×2 (10:36→22:47)
[2020-11-27] MEDS: THIAMINE 100 MG TAB PO SCH (10:37)
[2020-11-27] MEDS: FOLIC ACID 1 MG TAB PO SCH (10:37)
[2020-11-27] MEDS: PHENobarbital 15 MG TAB PO SCH ×2 (10:39→22:46)
[2020-11-27 10:52] LABS: Total Cells Counted 100
[2020-11-27 10:54] LABS: Hypochromasia 1+; Platelet Estimate Consistent w Auto
[2020-11-27] MEDS: ENOXAPARIN 40 MG/0.4 ML INJ SUB-Q SCH (22:46)
[2020-11-27] MEDS: MULTIVITAMINS ,THERAPEUTIC TAB PO SCH (23:09)
[2020-11-28] MEDS: INSULIN REGULAR, HUMAN 100 UNITS/1 ML SUB-Q SCH ×5 (06:00→23:50)
[2020-11-28 06:17] LABS: Hematocrit 32.8 % (35.5-45.6); Mean Corpuscular HGB Conc 33 % (32-34); Mean Corpuscular Volume 85 fl (84-94); Platelet Count 333 K/mm3 (140-440); Red Blood Count 3.88 M/mm3 (3.65-5.03); Red Cell Distribution Width 15.1 % (13.2-15.2)
[2020-11-28 06:59] LABS: Alanine Aminotransferase 25 units/L (7-56); Albumin 2.8 g/dL (3.9-5); BUN/Creatinine Ratio 30; Blood Urea Nitrogen 18 mg/dL (9-20); Calcium 8.8 mg/dL (8.4-10.2); Hemolysis Index 0
[2020-11-28] MEDS: LANSOPRAZOLE 30 MG SOLUTAB FEEDTUBE SCH (09:04)
[2020-11-28] MEDS: SODIUM CHLORIDE 1 GM TAB PO SCH ×2 (09:04→21:34)
[2020-11-28] MEDS: PHENobarbital 15 MG TAB PO SCH ×2 (09:05→22:04)
[2020-11-28] MEDS: FOLIC ACID 1 MG TAB PO SCH (09:05)
[2020-11-28] MEDS: levETIRAcetam 500 MG/5 ML ORAL LIQD FEEDTUBE SCH ×2 (09:05→21:34)
[2020-11-28] MEDS: THIAMINE 100 MG TAB PO SCH (09:05)
[2020-11-28 09:07] LABS: Total Cells Counted 100
[2020-11-28 09:08] LABS: Platelet Estimate Consistent w Auto; RBC Morphology Normal
--- NOTE | 2020-11-28 09:34 | Progress Note ---
Assessment and Plan Assessment and plan: #Acute hypoxic respiratory failure Now extubated Improved. Now on 2-1/2 L of oxygen # Acute metabolic encephalopathy Baseline unknown Has no ongoing infective process MRI brain is negative This could be his baseline #Seizure disorder Continue antiseizure medications No further seizures CT head and brain MRI showed no etiology for seizure #SIRS Etiology unknown-urinalysis negative, chest x-ray also negative COVID-19 test negative Discontinued antibiotics #Needs ENT as outpatient for evaluation of upper airway. He has no carcinoma as written in previous notes Needs further evaluation of liver lesion with MRI as outpatient Also needs to follow up with pulmonary in the office #Dysphagia s/p PEG placement #Hyponatremia Remains on salt tablets Check osmolality, electrolytes, cortisol and TSH #DVT prophylaxis-SCDs, Lovenox #GI prophylaxis-PPIs #Disposition-Pending placement History Interval history: This is a 60-year-old male with seizure disorder current alcohol and tobacco abuse presents to the hospital on 11/11 after being found unresponsive. On arrival of EMS patient was found to be hypoglycemic and given IV dextrose after which he recovered and refused further care. EMS was called again by family after the patient was found unresponsive and was given Narcan with no change. Patient was noted to have seizure activity and given 7 mg IV Ativan total including 3 from EMS. Patient was loaded with Keppra 2 g and was intubated for airway protection. Patient was found to have metabolic acidosis and hypoglycemia on BMP. Patient was found to be hypothermic and hypertensive in the emergency department. Patient's UDS was positive for barbiturates. Patient was admitted to the hospital service for further work-up with consults to [facility] and neurology. 11/12. Patient remains intubated. On Keppra and phenobarbital. Neurology evaluation appreciated. EEG ordered. May need transfer to tertiary care for continuous EEG pending EEG results. 11/13. Remains intubated and on antiseizure medications. EEG has been performed but results are pending. Neurology on board 11/14. Remains intubated and on antiseizure medications. EEG has been performed but results are pending. Neurology on board 11/15: EEG is consistent with significant encephalopathy and does not rule out the possibility of epilepsy, patient remains on mechanical ventilation with minimal vent settings. No acute events reported overnight. 11/16: No acute events reported overnight, patient opens eyes spontaneously and withdraws to pain bilateral lower extremities. At the time my examination patient was on CMV 450/18/64/0.30 and has been started on a CPAP trial subsequently. No evidence of generalized seizures noted. Patient is a lui of the state 11/17: Patient was extubated today per CCM, no acute events reported overnight. Patient has a right sided gaze during my examination and was on CPAP 10/6 at 30% and he opens his eyes spontaneously. He does withdraw bilateral lower extremities to pain. His Keppra was decreased yesterday. ST evaluation pending 11/18: Follow-up EEG reading. Patient currently off sedation. Nursing to place Dobbhoff tube for feeding. Speech therapy to continue swallow evaluation. No new seizure activity. Continue phenobarbital and Keppra. Seizure precautions. Transfer to [facility] today. 11/19: Dobbhoff tube with removal difficulty yesterday. 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 CT scan of the chest revealed pulmonary nodule and lesion in the liver suggestive of metastatic disease. GI consultation pending. Patient was electively intubated yesterday for airway protection. Extubation today per pulmonary 11/20: Await speech therapy evaluation. Patient will likely need PEG tube placement. Consult GI for further evaluation. Oncology consultation for likely metastatic disease. 11/21: Await GI consultation. Appreciate oncology evaluation. 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 Check MRI brain to rule out brain metastasis. Poor prognosis. 11/22: GI recommends tissue diagnosis either with ENT involvement and evaluation of epiglottis mass with biopsy vs biopsy of the liver lesion. Follow-up with case management for obtaining consent for possible PEG tube placement 11/23. Brain MRI showed no brain metastasis. Plan for EGD as per GI. Patient will need possible ENT evaluation of mass with biopsy or biopsy of the liver lesion. 11/24. EGD shows no mass in the oropharynx. PEG was placed during EGD and patient has been started on tube feeds. He will need placement to a halfway facility and has been accepted at some facilities. COVID-19 test is negative. 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 11/25 -11/27. Sodium trending down. Check osmolality, urine electrolytes. Continue salt tablets. 11/28. Sodium is till trending down. Will check cortisol and TSH. Hospitalist Physical - Physical exam Narrative exam: VITAL SIGNS: Reviewed. GENERAL: Awake HEAD: No signs of head trauma. EYES: Pupils are equal. Extraocular motions intact. MOUTH: Oropharynx is normal. NECK: No adenopathy, no JVD. CHEST: Chest with diminished breath sounds bilaterally. No wheezes, rales, or rhonchi. CARDIAC: normal S1 and S2, without murmurs, gallops, or rubs. ABDOMEN: Soft, non tender and non distended. No rebound or guarding, and no masses palpated. Bowel Sounds normal. MUSCULOSKELETAL: No edema NEUROLOGIC EXAM: Awake but nonverbal SKIN: No obvious lesions - Constitutional Vitals: Temp Pulse Resp BP Pulse Ox 98.0 F 63 18 120/68 97 11/28/20 04:07 11/28/20 04:07 11/28/20 04:07 11/28/20 04:07 11/28/20 04:07 HEART Score - HEART Score Troponin: Troponin T < 0.010 ng/mL (0.00-0.029) 11/11/20 09:02 Results - Labs CBC & Chem 7: 11/29/20 05:52 11/29/20 05:52 Labs: Laboratory Last Values WBC 7.2 K/mm3 (4.5-11.0) 11/28/20 05:09 RBC 3.88 M/mm3 (3.65-5.03) 11/28/20 05:09 Hgb 11.0 gm/dl (11.8-15.2) L 11/28/20 05:09 Hct 32.8 % (35.5-45.6) L 11/28/20 05:09 MCV 85 fl (84-94) 11/28/20 05:09 MCH 28 pg (28-32) 11/28/20 05:09 MCHC 33 % (32-34) 11/28/20 05:09 RDW 15.1 % (13.2-15.2) 11/28/20 05:09 Plt Count 333 K/mm3 (140-440) 11/28/20 05:09 Lymph % (Auto) 18.3 % (13.4-35.0) 11/26/20 06:23 [place] % (Auto) 9.8 % (0.0-7.3) H 11/26/20 06:23 Eos % (Auto) 1.1 % (0.0-4.3) 11/26/20 06:23 Baso % (Auto) 0.7 % (0.0-1.8) 11/26/20 06:23 Lymph # (Auto) 1.7 K/mm3 (1.2-5.4) 11/26/20 06:23 [place] # (Auto) 0.9 K/mm3 (0.0-0.8) H 11/26/20 06:23 Eos # (Auto) 0.1 K/mm3 (0.0-0.4) 11/26/20 06:23 Baso # (Auto) 0.1 K/mm3 (0.0-0.1) 11/26/20 06:23 Add Manual Diff Complete 11/28/20 05:09 Total Counted 100 11/28/20 05:09 Seg Neutrophils % 70.1 % (40.0-70.0) H 11/26/20 06:23 Seg Neuts % (Manual) 68.0 % (40.0-70.0) 11/28/20 05:09 Lymphocytes % (Manual) 23.0 % (13.4-35.0) 11/28/20 05:09 Reactive Lymphs % (Man) 4.0 % 11/27/20 05:50 Monocytes % (Manual) 3.0 % (0.0-7.3) 11/28/20 05:09 Eosinophils % (Manual) 6.0 % (0.0-4.3) H 11/28/20 05:09 Metamyelocytes % 2.0 % 11/27/20 05:50 Nucleated RBC % Not Reportable 11/28/20 05:09 Seg Neutrophils # 9.5 K/mm3 (1.8-7.7) H 11/26/20 06:23 Seg Neutrophils # Man 4.9 K/mm3 (1.8-7.7) 11/28/20 05:09 Band Neutrophils # 0.0 K/mm3 11/28/20 05:09 Lymphocytes # (Manual) 1.7 K/mm3 (1.2-5.4) 11/28/20 05:09 Abs React Lymphs (Man) 0.0 K/mm3 11/28/20 05:09 Monocytes # (Manual) 0.2 K/mm3 (0.0-0.8) 11/28/20 05:09 Eosinophils # (Manual) 0.4 K/mm3 (0.0-0.4) 11/28/20 05:09 Basophils # (Manual) 0.0 K/mm3 (0.0-0.1) 11/28/20 05:09 Metamyelocytes # 0.0 K/mm3 11/28/20 05:09 Myelocytes # 0.0 K/mm3 11/28/20 05:09 Promyelocytes # 0.0 K/mm3 11/28/20 05:09 Blast Cells # 0.0 K/mm3 11/28/20 05:09 WBC Morphology Not Reportable 11/28/20 05:09 Hypersegmented Neuts Not Reportable 11/28/20 05:09 Hyposegmented Neuts Not Reportable 11/28/20 05:09 Hypogranular Neuts Not Reportable 11/28/20 05:09 Smudge Cells Not Reportable 11/28/20 05:09 Toxic Granulation Not Reportable 11/28/20 05:09 Toxic Vacuolation Not Reportable 11/28/20 05:09 Dohle Bodies Not Reportable 11/28/20 05:09 Pelger-Huet Anomaly Not Reportable 11/28/20 05:09 Fercho Rods Not Reportable 11/28/20 05:09 Platelet Estimate Consistent w auto 11/28/20 05:09 Clumped Platelets Not Reportable 11/28/20 05:09 Plt Clumps, EDTA Not Reportable 11/28/20 05:09 Large Platelets Not Reportable 11/28/20 05:09 Giant Platelets Not Reportable 11/28/20 05:09 Platelet Satelliting Not Reportable 11/28/20 05:09 Plt Morphology Comment Not Reportable 11/28/20 05:09 RBC Morphology Normal 11/28/20 05:09 Dimorphic RBCs Not Reportable 11/28/20 05:09 Polychromasia Not Reportable 11/28/20 05:09 Hypochromasia Not Reportable 11/28/20 05:09 Poikilocytosis Not Reportable 11/28/20 05:09 Anisocytosis Not Reportable 11/28/20 05:09 Microcytosis Not Reportable 11/28/20 05:09 Macrocytosis Not Reportable 11/28/20 05:09 Spherocytes Not Reportable 11/28/20 05:09 Pappenheimer Bodies Not Reportable 11/28/20 05:09 Sickle Cells Not Reportable 11/28/20 05:09 Target Cells Not Reportable 11/28/20 05:09 Tear Drop Cells Not Reportable 11/28/20 05:09 Ovalocytes Not Reportable 11/28/20 05:09 Helmet Cells Not Reportable 11/28/20 05:09 Kim-Hopkins Bodies Not Reportable 11/28/20 05:09 Cades Rings Not Reportable 11/28/20 05:09 Joni Cells Not Reportable 11/28/20 05:09 Bite Cells Not Reportable 11/28/20 05:09 Crenated Cell Not Reportable 11/28/20 05:09 Elliptocytes Not Reportable 11/28/20 05:09 Acanthocytes (Spur) Not Reportable 11/28/20 05:09 Rouleaux Not Reportable 11/28/20 05:09 Hemoglobin C Crystals Not Reportable 11/28/20 05:09 Schistocytes Not Reportable 11/28/20 05:09 Malaria parasites Not Reportable 11/28/20 05:09 Jones Bodies Not Reportable 11/28/20 05:09 Hem Pathologist Commnt No 11/28/20 05:09 PT 11.5 Sec. (12.2-14.9) L 11/11/20 09:02 INR 0.86 (0.87-1.13) L 11/11/20 09:02 APTT 25.5 Sec. (24.2-36.6) 11/11/20 09:02 Thrombin Time 17.0 Sec. (15.1-19.6) 11/11/20 09:02 ABG pH 7.499 (7.320-7.450) H 11/17/20 11:40 POC ABG pCO2 36.3 mmHg (32.0-48.0) 11/17/20 11:40 ABG pCO2 33.9 mm Hg 11/11/20 10:45 POC ABG pO2 140.8 mmHg (83-108) H 11/17/20 11:40 ABG pO2 222.2 mm Hg (80.0-90.0) H 11/11/20 10:45 POC ABG HCO3 27.6 11/17/20 11:40 ABG HCO3 24.9 mmol/L (20.0-26.0) 11/11/20 10:45 ABG O2 Saturation 98.1 (0-100) 11/17/20 11:40 ABG O2 Content 19.4 (0.0-44) 11/11/20 10:45 POC ABG Base Excess 4.4 11/17/20 11:40 ABG Base Excess 1.9 mmol/L (-2.0-3.0) 11/11/20 10:45 ABG Hemoglobin 11.8 (12.0-17.5) L 11/17/20 11:40 ABG Oxyhemoglobin 97.4 (94-98) 11/17/20 11:40 ABG Carboxyhemoglobin 0.6 % (0.0-5.0) 11/11/20 10:45 ABG Methemoglobin 0.3 (0.0-1.5) 11/17/20 11:40 ABG Sodium 135.1 mmol/L (136.0-145.0) L 11/17/20 11:40 ABG Potassium 4.2 mmol/L (3.40-4.50) 11/17/20 11:40 ABG Chloride 102.0 mmol/L (98-107) 11/17/20 11:40 ABG Glucose 110 mg/dL (65-95) H 11/17/20 11:40 Oxyhemoglobin 98.5 % (95.0-99.0) 11/11/20 10:45 Carboxyhemoglobin 0.4 (0.5-1.5) L 11/17/20 11:40 FiO2 21 % 11/11/20 10:45 FiO2 % 30 11/17/20 11:40 Sodium 127 mmol/L (137-145) L 11/28/20 05:09 Sodium 127 mmol/L (137-145) L 11/28/20 05:09 Potassium 4.4 mmol/L (3.6-5.0) 11/28/20 05:09 Potassium 4.5 mmol/L (3.6-5.0) 11/28/20 05:09 Chloride 91.3 mmol/L (98-107) L 11/28/20 05:09 Chloride 92.0 mmol/L (98-107) L 11/28/20 05:09 Carbon Dioxide 27 mmol/L (22-30) 11/28/20 05:09 Carbon Dioxide 28 mmol/L (22-30) 11/28/20 05:09 Anion Gap 12 mmol/L 11/28/20 05:09 Anion Gap 13 mmol/L 11/28/20 05:09 BUN 18 mg/dL (9-20) 11/28/20 05:09 Creatinine 0.6 mg/dL (0.8-1.3) L 11/28/20 05:09 Estimated GFR > 60 ml/min 11/28/20 05:09 BUN/Creatinine Ratio 30 % 11/28/20 05:09 Glucose 109 mg/dL (75-100) H 11/28/20 05:09 POC Glucose 101 mg/dL (70-105) 11/28/20 05:42 Hemoglobin A1c 5.4 % (4-6) 11/12/20 07:26 Osmolality 281 Mosm/kg 11/28/20 05:09 Calcium 8.8 mg/dL (8.4-10.2) 11/28/20 05:09 Magnesium 2.00 mg/dL (1.7-2.3) 11/11/20 09:02 Total Bilirubin 0.30 mg/dL (0.1-1.2) 11/28/20 05:09 AST 37 units/L (5-40) 11/28/20 05:09 ALT 25 units/L (7-56) 11/28/20 05:09 Alkaline Phosphatase 120 units/L (35-129) 11/28/20 05:09 Ammonia 29.0 umol/L (25-60) 11/12/20 08:47 Total Creatine Kinase 169 units/L (55-170) 11/11/20 09:02 CK-MB (CK-2) 6.6 ng/mL (0.0-4.0) H 11/11/20 09:02 CK-MB (CK-2) Rel Index 3.9 (0-4) 11/11/20 09:02 Troponin T < 0.010 ng/mL (0.00-0.029) 11/11/20 09:02 Total Protein 6.6 g/dL (6.3-8.2) 11/28/20 05:09 Albumin 2.8 g/dL (3.9-5) L 11/28/20 05:09 Albumin/Globulin Ratio 0.7 % 11/28/20 05:09 Arterial Blood Glucose 110 mg/dL (65-95) H 11/17/20 11:40 Arterial Blood Ionized Calcium 4.9 mg/dL (4.6-5.3) 11/17/20 11:40 Urine Color Yellow (Yellow) 11/11/20 20:27 Urine Turbidity Clear (Clear) 11/11/20 20:27 Urine pH 6.0 (5.0-7.0) 11/11/20 20: Ur Specific [place] 1.045 (1.003-1.030) H 11/11/20 20:27 Urine Protein 100 mg/dl mg/dL (Negative) 11/11/20 20: Urine Glucose (UA) Neg mg/dL (Negative) 11/11/20 20: Urine Ketones Neg mg/dL (Negative) 11/11/20 20:27 Urine Blood Sm (Negative) 11/11/20 20:27 Urine Nitrite Neg (Negative) 11/11/20 20:27 Urine Bilirubin Neg (Negative) 11/11/20 20: Urine Urobilinogen 4.0 mg/dL (<2.0) 11/11/20 20:27 Ur Leukocyte Esterase Neg (Negative) 11/11/20 20:27 Urine WBC (Auto) 1.0 /HPF (0.0-6.0) 11/11/20 20: Urine RBC (Auto) 4.0 /HPF (0.0-6.0) 11/11/20 20:27 U Epithel Cells (Auto) 12.0 /HPF (0-13.0) 11/11/20 20:27 Urine Bacteria (Auto) 1+ /HPF (Negative) 11/11/20 20: Urine Mucus Few /HPF 11/11/20 20:27 Urine Opiates Screen Negative 11/11/20 20: Urine Methadone Screen Negative 11/11/20 20:27 Ur Barbiturates Screen Positive 11/11/20 20:27 Ur Phencyclidine Scrn Negative 11/11/20 20:27 Ur Amphetamines Screen Negative 11/11/20 20:27 Phenobarbital 4.3 ug/mL (15.0-40.0) L 11/12/20 08:47 U Benzodiazepines Scrn Negative 11/11/20 20:27 Urine Cocaine Screen Negative 11/11/20 20:27 U Marijuana (THC) Screen Negative 11/11/20 20:27 Drugs of Abuse Note Disclamer 11/11/20 20:27 Plasma/Serum Alcohol < 0.01 % (0-0.07) 11/11/20 09:02 Coronavirus (PCR) Negative (Negative) 11/23/20 Unknown [place]/IV: Voiding Method Condom Catheter Active Medications - Current Medications Current Medications: Generic Name Dose Route Start Last Admin Trade Name Freq PRN Reason Stop Dose Admin Acetaminophen 650 mg 11/11/20 22:58 Acetaminophen 325 Mg Tab PO Q4H PRN Pain MILD(1-3)/Fever >100.5/BAR Albuterol 2.5 mg 11/11/20 23:18 Albuterol 2.5 Mg/3 Ml Nebu IH Q3HRT PRN Wheezing Lipase/Protease/Amylase 1 each 11/12/20 12:00 Lipase 10,500/Protease 25,000/Amylase 43,750 (Units) Dr Rangel FEEDTUBE PRN PRN For Clogged Feeding Tube Dextrose 50 ml 11/11/20 22:11 11/17/20 23:29 Dextrose 50% In Water (25gm) 50 Ml Syringe IV 10 ml ONCE PRN Administration Hypoglycemia Protocol Enoxaparin Sodium 40 mg 11/12/20 22:00 11/27/20 22:46 Enoxaparin 40 Mg/0.4 Ml Inj SUB-Q 40 mg QDAY@2200 KIRK Administration Protocol Folic Acid 1 mg 11/16/20 10:00 11/28/20 09:05 Folic Acid 1 Mg Tab PO 1 mg DAILY KIRK Administration Hydralazine HCl 10 mg 11/12/20 10:30 11/14/20 07:30 Hydralazine 20 Mg/1 Ml Inj IV 10 mg Q4H PRN Administration Hypertension Hydrophilic Ointment 1 applic 11/11/20 09:14 Lip Therapy Vaseline TP Q2HR PRN Dry Lips Sodium Chloride 1,000 mls @ 42 mls/hr 11/27/20 07:30 Nacl 0.9% 1000 Ml IV DIRECT KIRK Insulin Human Regular 0 units 11/12/20 18:00 11/28/20 06:00 Insulin Regular, Human 100 Units/1 Ml SUB-Q Not Given Q6H KIRK Protocol Lansoprazole 30 mg 11/24/20 10:00 11/28/20 09:04 Lansoprazole 30 Mg Solutab FEEDTUBE 30 mg QDAY KIRK Administration Levetiracetam 1,000 mg 11/24/20 10:00 11/28/20 09:05 Levetiracetam 500 Mg/5 Ml Oral Liqd FEEDTUBE 1,000 mg BID KIRK Administration Metoclopramide HCl 10 mg 11/11/20 22:58 Metoclopramide 10 Mg/2 Ml Inj IV Q6H PRN Nausea And Vomiting Multi-Ingred Cream/Lotion/Oil/Oint 1 applic 11/11/20 09:14 Mineral Oil/Petrolatum, White Ophth Oint 3.5 Gm OU Q4HR PRN Dry Eye(s) Multivitamins 1 each 11/13/20 00:00 11/27/20 23:09 Multivitamins ,Therapeutic Tab PO 1 each Q24H KIRK Administration Naloxone HCl 2 mg 11/11/20 08:33 Naloxone 0.4 Mg/1 Ml Inj IV Q2MIN PRN Res Rate </= 8 or 02 SAT < 92% Ondansetron HCl 4 mg 11/11/20 22:58 Ondansetron 4 Mg/2 Ml Inj IV Q3H PRN Nausea And Vomiting Phenobarbital 15 mg 11/11/20 23:45 11/28/20 09:05 Phenobarbital 15 Mg Tab PO 15 mg BID KIRK Administration Simple Syrup 15 ml 11/12/20 12:00 Simple Syrup 15 Ml FEEDTUBE PRN PRN Hypoglycemia Simple Syrup 30 ml 11/12/20 12:00 Simple Syrup 15 Ml FEEDTUBE PRN PRN Hypoglycemia Sodium Bicarbonate 325 mg 11/12/20 12:00 Sodium Bicarbonate 325 Mg Tab FEEDTUBE PRN PRN For Clogged Feeding Tube Sodium Chloride 10 ml 11/11/20 23:00 11/28/20 09:04 Sodium Chloride 0.9% 10 Ml Flush Syringe IV 10 ml BID KIRK Administration Sodium Chloride 10 ml 11/11/20 22:58 Sodium Chloride 0.9% 10 Ml Flush Syringe IV PRN PRN LINE FLUSH Sodium Chloride 2 gm 11/23/20 22:00 11/28/20 09:04 Sodium Chloride 1 Gm Tab PO 2 gm BID KIRK Administration Thiamine HCl 100 mg 11/16/20 10:00 11/28/20 09:05 Thiamine 100 Mg Tab PO 100 mg QDAY KIRK Administration Nutrition/Malnutrition Assess - Dietary Evaluation Nutrition/Malnutrition Findings: Nutrition Notes Start: 11/12/20 08:26 Freq: Status: Active Protocol: Document 11/26/20 10:59 CW (Rec: 11/26/20 11:06 CW [id number]) Nutrition Notes Initial or Follow up Reassessment Current Diagnosis Respiratory Failure,Stroke Other Pertinent Diagnosis Seizures, Neurogenic Dysphagia Current Diet Jevity 1.2 at 60 ml/hr Labs/Tests Na 128 Pertinent Medications Thiamine Folic Acid Height 5 ft 9 in Weight 63.2 kg Usual Body Weight 70 kg [place] Body Weight (kg) 72.72 BMI 20.5 Weight change and time frame -10% weight change x 14 days. Weight on 10/01 was 68.039 indicating UBW around 70 kg Weight Status Underweight Subjective/Other Information F/U TF tolerance. Per nursing notes pt is tolerating TF at goal of 60 ml/hr. Pt now with dx of neurogenic dysphagia. POC is to go to SNF with TF regimen. RD conducted reweight . -10% weight loss x 1 month being treated with TF. Percent of energy/protein needs met: 106%/114% Burn Absent Trauma Absent GI Symptoms None Difficulty In Swallowing Current % PO Negligible Minimum of two criteria Yes Interpretation of Weight Loss (severe) >5% in 1 month #2 Nutrition Diagnosis Inadequate energy intake As Evidenced by Signs and Symptoms TF running at goal of 60 ml/hr Diagnosis Progress(for reassessment Improved documentation) #1 Nutrition Diagnosis Inadequate oral intake As Evidenced by Signs and Symptoms new dx of neurogenic dysphagia Diagnosis Progress(for reassessment Worsened documentation) Is patient on ventilator? No Is Patient Ambulatory and/or Out of Bed No REE-([place]-St. Jeor-confined to bed) [phone] Calculation Used for Recommendations [place]-St Jeor Additional Notes Protein: 70-84 g (1.0-1.2 g/kg ABW) Fluid: 1 ml/kcal Nutrition Intervention Change Diet Order: TF Nutrition Support: Jevity 1.2 at 60 ml/hr Flush 100 mL Kcal 1,728 Protein (gm) 80 Fluid (mL) 1,162 Goal #1 Meet at least 75% of estimated energy and protein needs via TF Goal #2 weight stability/increase Anticipated Discharge Needs: TF Jevity 1.2 at 60 ml/h Follow-Up By: 11/30/20 Additional Comments F/U for stable TF and weight
[2020-11-28] MEDS: ENOXAPARIN 40 MG/0.4 ML INJ SUB-Q SCH (21:35)
[2020-11-29] MEDS: MULTIVITAMINS ,THERAPEUTIC TAB PO SCH ×2 (00:33→23:51)
[2020-11-29] MEDS: INSULIN REGULAR, HUMAN 100 UNITS/1 ML SUB-Q SCH ×3 (06:00→18:00)
[2020-11-29 06:25] LABS: Hematocrit 37.9 % (35.5-45.6); Hemoglobin 12.8 gm/dl (11.8-15.2); Mean Corpuscular HGB Conc 34 % (32-34); Mean Corpuscular Volume 85 fl (84-94); Platelet Count 407 K/mm3 (140-440); Red Blood Count 4.48 M/mm3 (3.65-5.03); Red Cell Distribution Width 14.9 % (13.2-15.2)
[2020-11-29 06:49] LABS: Alanine Aminotransferase 30 units/L (7-56); Albumin 3.2 g/dL (3.9-5); Blood Urea Nitrogen 17 mg/dL (9-20); Calcium 8.9 mg/dL (8.4-10.2); Hemolysis Index 1
[2020-11-29 07:05] LABS: BUN/Creatinine Ratio 28
[2020-11-29 07:22] LABS: Total Cells Counted 100
[2020-11-29 07:23] LABS: Anisocytosis Few; Platelet Estimate Consistent w Auto; Target Cells Few
[2020-11-29] MEDS: SODIUM CHLORIDE 1 GM TAB PO SCH ×3 (09:00→23:34)
[2020-11-29] MEDS ORDERED: LEVOTHYROXINE 25 MCG TAB PO SCH (10:00)
--- NOTE | 2020-11-29 10:28 | Progress Note ---
Assessment and Plan Assessment and plan: #Acute hypoxic respiratory failure Now extubated Improved. Now on 2-1/2 L of oxygen # Acute metabolic encephalopathy Baseline unknown Has no ongoing infective process MRI brain is negative This could be his baseline #Seizure disorder Continue antiseizure medications No further seizures CT head and brain MRI showed no etiology for seizure #SIRS Etiology unknown-urinalysis negative, chest x-ray also negative COVID-19 test negative Discontinued antibiotics #Needs ENT as outpatient for evaluation of upper airway. He has no carcinoma as written in previous notes Needs further evaluation of liver lesion with MRI as outpatient Also needs to follow up with pulmonary in the office #Dysphagia s/p PEG placement #Hyponatremia Remains on salt tablets Check osmolality, electrolytes, cortisol and TSH Nephrology consulted #Low TSH Awaiting free T4 #DVT prophylaxis-SCDs, Lovenox #GI prophylaxis-PPIs #Disposition-Pending placement History Interval history: This is a 60-year-old male with seizure disorder current alcohol and tobacco abuse presents to the hospital on 11/11 after being found unresponsive. On arrival of EMS patient was found to be hypoglycemic and given IV dextrose after which he recovered and refused further care. EMS was called again by family after the patient was found unresponsive and was given Narcan with no change. Patient was noted to have seizure activity and given 7 mg IV Ativan total including 3 from EMS. Patient was loaded with Keppra 2 g and was intubated for airway protection. Patient was found to have metabolic acidosis and hypoglycemia on BMP. Patient was found to be hypothermic and hypertensive in the emergency department. Patient's UDS was positive for barbiturates. Patient was admitted to the hospital service for further work-up with consults to [facility] and neurology. 11/12. Patient remains intubated. On Keppra and phenobarbital. Neurology evaluation appreciated. EEG ordered. May need transfer to tertiary care for continuous EEG pending EEG results. 11/13. Remains intubated and on antiseizure medications. EEG has been performed but results are pending. Neurology on board 11/14. Remains intubated and on antiseizure medications. EEG has been performed but results are pending. Neurology on board 11/15: EEG is consistent with significant encephalopathy and does not rule out the possibility of epilepsy, patient remains on mechanical ventilation with minimal vent settings. No acute events reported overnight. 11/16: No acute events reported overnight, patient opens eyes spontaneously and withdraws to pain bilateral lower extremities. At the time my examination patient was on CMV 450/18/64/0.30 and has been started on a CPAP trial subsequently. No evidence of generalized seizures noted. Patient is a [place] of the state 11/17: Patient was extubated today per [facility], no acute events reported overnight. Patient has a right sided gaze during my examination and was on CPAP 10/6 at 30% and he opens his eyes spontaneously. He does withdraw bilateral lower extremities to pain. His Keppra was decreased yesterday. ST evaluation pending 11/18: Follow-up EEG reading. Patient currently off sedation. Nursing to place Dobbhoff tube for feeding. Speech therapy to continue swallow evaluation. No new seizure activity. Continue phenobarbital and Keppra. Seizure precautions. Transfer to [facility] today. 11/19: Dobbhoff tube with removal difficulty yesterday. 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 CT scan of the chest revealed pulmonary nodule and lesion in the liver suggestive of metastatic disease. GI consultation pending. Patient was electively intubated yesterday for airway protection. Extubation today per pulmonary 11/20: Await speech therapy evaluation. Patient will likely need PEG tube p lacement. Consult GI for further evaluation. Oncology consultation for likely metastatic disease. 11/21: Await GI consultation. Appreciate oncology evaluation. 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 Check MRI brain to rule out brain metastasis. Poor prognosis. 11/22: GI recommends tissue diagnosis either with ENT involvement and evaluation of epiglottis mass with biopsy vs biopsy of the liver lesion. Follow-up with case management for obtaining consent for possible PEG tube placement 11/23. Brain MRI showed no brain metastasis. Plan for EGD as per GI. Patient will need possible ENT evaluation of mass with biopsy or biopsy of the liver lesion. 11/24. EGD shows no mass in the oropharynx. PEG was placed during EGD and patient has been started on tube feeds. He will need placement to a long term facility and has been accepted at some facilities. COVID-19 test is negative. 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 11/25 -11/27. Sodium trending down. Check osmolality, urine electrolytes. Continue salt tablets. 11/28. Sodium is till trending down. Will check cortisol and TSH. 11/29. Sodium is still <130 despite being on salt tablets and NS. Will consult nephrology Hospitalist Physical - Physical exam Narrative exam: VITAL SIGNS: Reviewed. GENERAL: Awake HEAD: No signs of head trauma. EYES: Pupils are equal. Extraocular motions intact. MOUTH: Oropharynx is normal. NECK: No adenopathy, no JVD. CHEST: Chest with diminished breath sounds bilaterally. No wheezes, rales, or rhonchi. CARDIAC: normal S1 and S2, without murmurs, gallops, or rubs. ABDOMEN: Soft, non tender and non distended. No rebound or guarding, and no masses palpated. Bowel Sounds normal. MUSCULOSKELETAL: No edema NEUROLOGIC EXAM: Awake but nonverbal SKIN: No obvious lesions - Constitutional Vitals: Temp Pulse Resp BP Pulse Ox 98.9 F 80 16 104/71 94 11/28/20 21:21 11/28/20 21:21 11/28/20 22:00 11/28/20 21:21 11/28/20 21:21 General appearance: Present: no acute distress, other (unresponsive) HEART Score - HEART Score Troponin: Troponin T < 0.010 ng/mL (0.00-0.029) 11/11/20 09:02 Results - Labs CBC & Chem 7: 11/29/20 05:52 11/29/20 05:52 Labs: Laboratory Last Values WBC 9.7 K/mm3 (4.5-11.0) 11/29/20 05:52 RBC 4.48 M/mm3 (3.65-5.03) 11/29/20 05:52 Hgb 12.8 gm/dl (11.8-15.2) 11/29/20 05:52 Hct 37.9 % (35.5-45.6) 11/29/20 05:52 MCV 85 fl (84-94) 11/29/20 05:52 MCH 29 pg (28-32) 11/29/20 05:52 MCHC 34 % (32-34) 11/29/20 05:52 RDW 14.9 % (13.2-15.2) 11/29/20 05:52 Plt Count 407 K/mm3 (140-440) 11/29/20 05:52 Lymph % (Auto) 18.3 % (13.4-35.0) 11/26/20 06:23 Power % (Auto) 9.8 % (0.0-7.3) H 11/26/20 06:23 Eos % (Auto) 1.1 % (0.0-4.3) 11/26/20 06:23 Baso % (Auto) 0.7 % (0.0-1.8) 11/26/20 06:23 Lymph # (Auto) 1.7 K/mm3 (1.2-5.4) 11/26/20 06:23 Power # (Auto) 0.9 K/mm3 (0.0-0.8) H 11/26/20 06:23 Eos # (Auto) 0.1 K/mm3 (0.0-0.4) 11/26/20 06:23 Baso # (Auto) 0.1 K/mm3 (0.0-0.1) 11/26/20 06:23 Add Manual Diff Complete 11/29/20 05:52 Total Counted 100 11/29/20 05:52 Seg Neutrophils % 70.1 % (40.0-70.0) H 11/26/20 06:23 Seg Neuts % (Manual) 76.0 % (40.0-70.0) H 11/29/20 05:52 Lymphocytes % (Manual) 10.0 % (13.4-35.0) L 11/29/20 05:52 Reactive Lymphs % (Man) 4.0 % 11/27/20 05:50 Monocytes % (Manual) 10.0 % (0.0-7.3) H 11/29/20 05:52 Eosinophils % (Manual) 3.0 % (0.0-4.3) 11/29/20 05:52 Metamyelocytes % 1.0 % 11/29/20 05:52 Nucleated RBC % Not Reportable 11/29/20 05:52 Seg Neutrophils # 9.5 K/mm3 (1.8-7.7) H 11/26/20 06:23 Seg Neutrophils # Man 7.4 K/mm3 (1.8-7.7) 11/29/20 05:52 Band Neutrophils # 0.0 K/mm3 11/29/20 05:52 Lymphocytes # (Manual) 1.0 K/mm3 (1.2-5.4) L 11/29/20 05:52 Abs React Lymphs (Man) 0.0 K/mm3 11/29/20 05:52 Monocytes # (Manual) 1.0 K/mm3 (0.0-0.8) H 11/29/20 05:52 Eosinophils # (Manual) 0.3 K/mm3 (0.0-0.4) 11/29/20 05:52 Basophils # (Manual) 0.0 K/mm3 (0.0-0.1) 11/29/20 05:52 Metamyelocytes # 0.1 K/mm3 11/29/20 05:52 Myelocytes # 0.0 K/mm3 11/29/20 05:52 Promyelocytes # 0.0 K/mm3 11/29/20 05:52 Blast Cells # 0.0 K/mm3 11/29/20 05:52 WBC Morphology Not Reportable 11/29/20 05:52 Hypersegmented Neuts Not Reportable 11/29/20 05:52 Hyposegmented Neuts Not Reportable 11/29/20 05:52 Hypogranular Neuts Not Reportable 11/29/20 05:52 Smudge Cells Not Reportable 11/29/20 05:52 Toxic Granulation Not Reportable 11/29/20 05:52 Toxic Vacuolation Not Reportable 11/29/20 05:52 Dohle Bodies Not Reportable 11/29/20 05:52 Pelger-Huet Anomaly Not Reportable 11/29/20 05:52 Fercho Rods Not Reportable 11/29/20 05:52 Platelet Estimate Consistent w auto 11/29/20 05:52 Clumped Platelets Not Reportable 11/29/20 05:52 Plt Clumps, EDTA Not Reportable 11/29/20 05:52 Large Platelets Not Reportable 11/29/20 05:52 Giant Platelets Not Reportable 11/29/20 05:52 Platelet Satelliting Not Reportable 11/29/20 05:52 Plt Morphology Comment Not Reportable 11/29/20 05:52 RBC Morphology Not Reportable 11/29/20 05:52 Dimorphic RBCs Not Reportable 11/29/20 05:52 Polychromasia Not Reportable 11/29/20 05:52 Hypochromasia Not Reportable 11/29/20 05:52 Poikilocytosis Not Reportable 11/29/20 05:52 Anisocytosis Few 11/29/20 05:52 Microcytosis Not Reportable 11/29/20 05:52 Macrocytosis Not Reportable 11/29/20 05:52 Spherocytes Not Reportable 11/29/20 05:52 Pappenheimer Bodies Not Reportable 11/29/20 05:52 Sickle Cells Not Reportable 11/29/20 05:52 Target Cells Few 11/29/20 05:52 Tear Drop Cells Not Reportable 11/29/20 05:52 Ovalocytes Not Reportable 11/29/20 05:52 Helmet Cells Not Reportable 11/29/20 05:52 [place] Bodies Not Reportable 11/29/20 05:52 [place] Rings Not Reportable 11/29/20 05:52 [place] Cells Not Reportable 11/29/20 05:52 Bite Cells Not Reportable 11/29/20 05:52 Crenated Cell Not Reportable 11/29/20 05:52 Elliptocytes Not Reportable 11/29/20 05:52 Acanthocytes (Spur) Not Reportable 11/29/20 05:52 Rouleaux Not Reportable 11/29/20 05:52 Hemoglobin C Crystals Not Reportable 11/29/20 05:52 Schistocytes Not Reportable 11/29/20 05:52 Malaria parasites Not Reportable 11/29/20 05:52 Jones Bodies Not Reportable 11/29/20 05:52 Hem Pathologist Commnt No 11/29/20 05:52 PT 11.5 Sec. (12.2-14.9) L 11/11/20 09:02 INR 0.86 (0.87-1.13) L 11/11/20 09:02 APTT 25.5 Sec. (24.2-36.6) 11/11/20 09:02 Thrombin Time 17.0 Sec. (15.1-19.6) 11/11/20 09:02 ABG pH 7.499 (7.320-7.450) H 11/17/20 11:40 POC ABG pCO2 36.3 mmHg (32.0-48.0) 11/17/20 11:40 ABG pCO2 33.9 mm Hg 11/11/20 10:45 POC ABG pO2 140.8 mmHg (83-108) H 11/17/20 11:40 ABG pO2 222.2 mm Hg (80.0-90.0) H 11/11/20 10:45 POC ABG HCO3 27.6 11/17/20 11:40 ABG HCO3 24.9 mmol/L (20.0-26.0) 11/11/20 10:45 ABG O2 Saturation 98.1 (0-100) 11/17/20 11:40 ABG O2 Content 19.4 (0.0-44) 11/11/20 10:45 POC ABG Base Excess 4.4 11/17/20 11:40 ABG Base Excess 1.9 mmol/L (-2.0-3.0) 11/11/20 10:45 ABG Hemoglobin 11.8 (12.0-17.5) L 11/17/20 11:40 ABG Oxyhemoglobin 97.4 (94-98) 11/17/20 11:40 ABG Carboxyhemoglobin 0.6 % (0.0-5.0) 11/11/20 10:45 ABG Methemoglobin 0.3 (0.0-1.5) 11/17/20 11:40 ABG Sodium 135.1 mmol/L (136.0-145.0) L 11/17/20 11:40 ABG Potassium 4.2 mmol/L (3.40-4.50) 11/17/20 11:40 ABG Chloride 102.0 mmol/L (98-107) 11/17/20 11:40 ABG Glucose 110 mg/dL (65-95) H 11/17/20 11:40 Oxyhemoglobin 98.5 % (95.0-99.0) 11/11/20 10:45 Carboxyhemoglobin 0.4 (0.5-1.5) L 11/17/20 11:40 FiO2 21 % 11/11/20 10:45 FiO2 % 30 11/17/20 11:40 Sodium 128 mmol/L (137-145) L 11/29/20 05:52 Potassium 4.9 mmol/L (3.6-5.0) 11/29/20 05:52 Chloride 90.5 mmol/L (98-107) L 11/29/20 05:52 Carbon Dioxide 30 mmol/L (22-30) 11/29/20 05:52 Anion Gap 12 mmol/L 11/29/20 05:52 BUN 17 mg/dL (9-20) 11/29/20 05:52 Creatinine 0.6 mg/dL (0.8-1.3) L 11/29/20 05:52 Estimated GFR > 60 ml/min 11/29/20 05:52 BUN/Creatinine Ratio 28 % 11/29/20 05:52 Glucose 103 mg/dL (75-100) H 11/29/20 05:52 POC Glucose 106 mg/dL (70-105) H 11/29/20 07:17 Hemoglobin A1c 5.4 % (4-6) 11/12/20 07:26 Osmolality 281 Mosm/kg 11/28/20 05:09 Calcium 8.9 mg/dL (8.4-10.2) 11/29/20 05:52 Magnesium 2.00 mg/dL (1.7-2.3) 11/11/20 09:02 Total Bilirubin 0.40 mg/dL (0.1-1.2) 11/29/20 05:52 AST 42 units/L (5-40) H 11/29/20 05:52 ALT 30 units/L (7-56) 11/29/20 05:52 Alkaline Phosphatase 156 units/L (35-129) H 11/29/20 05:52 Ammonia 29.0 umol/L (25-60) 11/12/20 08:47 Total Creatine Kinase 169 units/L (55-170) 11/11/20 09:02 CK-MB (CK-2) 6.6 ng/mL (0.0-4.0) H 11/11/20 09:02 CK-MB (CK-2) Rel Index 3.9 (0-4) 11/11/20 09:02 Troponin T < 0.010 ng/mL (0.00-0.029) 11/11/20 09:02 Total Protein 7.8 g/dL (6.3-8.2) 11/29/20 05:52 Albumin 3.2 g/dL (3.9-5) L 11/29/20 05:52 Albumin/Globulin Ratio 0.7 % 11/29/20 05:52 TSH 5.610 mlU/mL (0.270-4.200) H 11/29/20 05:52 Arterial Blood Glucose 110 mg/dL (65-95) H 11/17/20 11:40 Arterial Blood Ionized Calcium 4.9 mg/dL (4.6-5.3) 11/17/20 11:40 Urine Color Yellow (Yellow) 11/11/20 20: Urine Turbidity Clear (Clear) 11/11/20 20: Urine pH 6.0 (5.0-7.0) 11/11/20 20: Ur Specific [place] 1.045 (1.003-1.030) H 11/11/20 20:27 Urine Protein 100 mg/dl mg/dL (Negative) 11/11/20 20: Urine Glucose (UA) Neg mg/dL (Negative) 11/11/20 20: Urine Ketones Neg mg/dL (Negative) 11/11/20 20: Urine Blood Sm (Negative) 11/11/20 20: Urine Nitrite Neg (Negative) 11/11/20 20: Urine Bilirubin Neg (Negative) 11/11/20 20:27 Urine Urobilinogen 4.0 mg/dL (<2.0) 11/11/20 20:27 Ur Leukocyte Esterase Neg (Negative) 11/11/20 20:27 Urine WBC (Auto) 1.0 /HPF (0.0-6.0) 11/11/20 20:27 Urine RBC (Auto) 4.0 /HPF (0.0-6.0) 11/11/20 20:27 U Epithel Cells (Auto) 12.0 /HPF (0-13.0) 11/11/20 20: Urine Bacteria (Auto) 1+ /HPF (Negative) 11/11/20 20:27 Urine Mucus Few /HPF 11/11/20 20:27 Urine Opiates Screen Negative 11/11/20 20: Urine Methadone Screen Negative 11/11/20 20: Ur Barbiturates Screen Positive 11/11/20 20:27 Ur Phencyclidine Scrn Negative 11/11/20 20: Ur Amphetamines Screen Negative 11/11/20 20: Phenobarbital 4.3 ug/mL (15.0-40.0) L 11/12/20 08:47 U Benzodiazepines Scrn Negative 11/11/20 20:27 Urine Cocaine Screen Negative 11/11/20 20:27 U Marijuana (THC) Screen Negative 11/11/20 20:27 Drugs of Abuse Note Disclamer 11/11/20 20:27 Plasma/Serum Alcohol < 0.01 % (0-0.07) 11/11/20 09:02 Coronavirus (PCR) Negative (Negative) 11/23/20 Unknown [place]/IV: Voiding Method Condom Catheter Active Medications - Current Medications Current Medications: Generic Name Dose Route Start Last Admin Trade Name Freq PRN Reason Stop Dose Admin Acetaminophen 650 mg 11/11/20 22:58 Acetaminophen 325 Mg Tab PO Q4H PRN Pain MILD(1-3)/Fever >100.5/BAR Albuterol 2.5 mg 11/11/20 23:18 Albuterol 2.5 Mg/3 Ml Nebu IH Q3HRT PRN Wheezing Lipase/Protease/Amylase 1 each 11/12/20 12:00 Lipase 10,500/Protease 25,000/Amylase 43,750 (Units) Dr Rangel FEEDTUBE PRN PRN For Clogged Feeding Tube Dextrose 50 ml 11/11/20 22:11 11/17/20 23:29 Dextrose 50% In Water (25gm) 50 Ml Syringe IV 10 ml ONCE PRN Administration Hypoglycemia Protocol Enoxaparin Sodium 40 mg 11/12/20 22:00 11/28/20 21:35 Enoxaparin 40 Mg/0.4 Ml Inj SUB-Q 40 mg QDAY@2200 KIRK Administration Protocol Folic Acid 1 mg 11/16/20 10:00 11/28/20 09:05 Folic Acid 1 Mg Tab PO 1 mg DAILY KIRK Administration Hydralazine HCl 10 mg 11/12/20 10:30 11/14/20 07:30 Hydralazine 20 Mg/1 Ml Inj IV 10 mg Q4H PRN Administration Hypertension Hydrophilic Ointment 1 applic 11/11/20 09:14 Lip Therapy Vaseline TP Q2HR PRN Dry Lips Sodium Chloride 1,000 mls @ 42 mls/hr 11/27/20 07:30 11/29/20 01:28 Nacl 0.9% 1000 Ml IV 42 mls/hr DIRECT KIRK Administration Insulin Human Regular 0 units 11/12/20 18:00 11/28/20 23:50 Insulin Regular, Human 100 Units/1 Ml SUB-Q Not Given Q6H [facility] Protocol Lansoprazole 30 mg 11/24/20 10:00 11/28/20 09:04 Lansoprazole 30 Mg Solutab FEEDTUBE 30 mg QDAY KIRK Administration Levetiracetam 1,000 mg 11/24/20 10:00 11/28/20 21:34 Levetiracetam 500 Mg/5 Ml Oral Liqd FEEDTUBE 1,000 mg BID KIRK Administration Levothyroxine Sodium 25 mcg 11/29/20 10:00 Levothyroxine 25 Mcg Tab PO DAILY@0600 KIRK Metoclopramide HCl 10 mg 11/11/20 22:58 Metoclopramide 10 Mg/2 Ml Inj IV Q6H PRN Nausea And Vomiting Multi-Ingred Cream/Lotion/Oil/Oint 1 applic 11/11/20 09:14 Mineral Oil/Petrolatum, White Ophth Oint 3.5 Gm OU Q4HR PRN Dry Eye(s) Multivitamins 1 each 11/13/20 00:00 11/29/20 00:33 Multivitamins ,Therapeutic Tab PO 1 each Q24H KIRK Administration Naloxone HCl 2 mg 11/11/20 08:33 Naloxone 0.4 Mg/1 Ml Inj IV Q2MIN PRN Res Rate </= 8 or 02 SAT < 92% Ondansetron HCl 4 mg 11/11/20 22:58 Ondansetron 4 Mg/2 Ml Inj IV Q3H PRN Nausea And Vomiting Phenobarbital 15 mg 11/11/20 23:45 11/28/20 22:04 Phenobarbital 15 Mg Tab PO 15 mg BID KIRK Administration Simple Syrup 15 ml 11/12/20 12:00 Simple Syrup 15 Ml FEEDTUBE PRN PRN Hypoglycemia Simple Syrup 30 ml 11/12/20 12:00 Simple Syrup 15 Ml FEEDTUBE PRN PRN Hypoglycemia Sodium Bicarbonate 325 mg 11/12/20 12:00 Sodium Bicarbonate 325 Mg Tab FEEDTUBE PRN PRN For Clogged Feeding Tube Sodium Chloride 10 ml 11/11/20 23:00 11/28/20 21:35 Sodium Chloride 0.9% 10 Ml Flush Syringe IV 10 ml BID KIRK Administration Sodium Chloride 10 ml 11/11/20 22:58 Sodium Chloride 0.9% 10 Ml Flush Syringe IV PRN PRN LINE FLUSH Sodium Chloride 2 gm 11/29/20 09:00 Sodium Chloride 1 Gm Tab PO TID KIRK Thiamine HCl 100 mg 11/16/20 10:00 11/28/20 09:05 Thiamine 100 Mg Tab PO 100 mg QDAY KIRK Administration Nutrition/Malnutrition Assess - Dietary Evaluation Nutrition/Malnutrition Findings: Nutrition Notes Start: 11/12/20 08:26 Freq: Status: Active Protocol: Document 11/26/20 10:59 CW (Rec: 11/26/20 11:06 CW [id number]) Nutrition Notes Initial or Follow up Reassessment Current Diagnosis Respiratory Failure,Stroke Other Pertinent Diagnosis Seizures, Neurogenic Dysphagia Current Diet Jevity 1.2 at 60 ml/hr Labs/Tests Na 128 Pertinent Medications Thiamine Folic Acid Height 5 ft 9 in Weight 63.2 kg Usual Body Weight 70 kg [place] Body Weight (kg) 72.72 BMI 20.5 Weight change and time frame -10% weight change x 14 days. Weight on 10/01 was 68.039 indicating UBW around 70 kg Weight Status Underweight Subjective/Other Information F/U TF tolerance. Per nursing notes pt is tolerating TF at goal of 60 ml/hr. Pt now with dx of neurogenic dysphagia. POC is to go to SNF with TF regimen. RD conducted reweight . -10% weight loss x 1 month being treated with TF. Percent of energy/protein needs met: 106%/114% Burn Absent Trauma Absent GI Symptoms None Difficulty In Swallowing Current % PO Negligible Minimum of two criteria Yes Interpretation of Weight Loss (severe) >5% in 1 month #2 Nutrition Diagnosis Inadequate energy intake As Evidenced by Signs and Symptoms TF running at goal of 60 ml/hr Diagnosis Progress(for reassessment Improved documentation) #1 Nutrition Diagnosis Inadequate oral intake As Evidenced by Signs and Symptoms new dx of neurogenic dysphagia Diagnosis Progress(for reassessment Worsened documentation) Is patient on ventilator? No Is Patient Ambulatory and/or Out of Bed No REE-([facility]-confined to bed) 1642.109 Calculation Used for Recommendations [facility] Additional Notes Protein: 70-84 g (1.0-1.2 g/kg ABW) Fluid: 1 ml/kcal Nutrition Intervention Change Diet Order: TF Nutrition Support: Jevity 1.2 at 60 ml/hr Flush 100 mL Kcal 1,728 Protein (gm) 80 Fluid (mL) 1,162 Goal #1 Meet at least 75% of estimated energy and protein needs via TF Goal #2 weight stability/increase Anticipated Discharge Needs: TF Jevity 1.2 at 60 ml/h Follow-Up By: 11/30/20 Additional Comments F/U for stable TF and weight
[2020-11-29] MEDS: levETIRAcetam 500 MG/5 ML ORAL LIQD FEEDTUBE SCH ×2 (10:57→23:34)
[2020-11-29] MEDS: FOLIC ACID 1 MG TAB PO SCH (10:58)
[2020-11-29] MEDS: THIAMINE 100 MG TAB PO SCH (10:58)
[2020-11-29] MEDS: LANSOPRAZOLE 30 MG SOLUTAB FEEDTUBE SCH (10:59)
[2020-11-29] MEDS: PHENobarbital 15 MG TAB PO SCH ×2 (11:27→23:49)
[2020-11-29 11:32] LABS: Blood Urea Nitrogen TNR mg/dL (9-20)
[2020-11-29 11:33] LABS: BUN/Creatinine Ratio TNR; Calcium TNR mg/dL (8.4-10.2); Hemolysis Index TNR
--- NOTE | 2020-11-29 13:09 | Consultation ---
History of Present Illness - Reason for Consult Consult date: 11/29/20 hyponatremia - History of Present Illness The patient is a 70 YO male with history significant for Seizure disorder, current alcohol and tobacco abuse who presented to [facility] ED on 11/11 after being found unresponsive. Patient was not able to provide any history and there was no family member at the bedside. On arrival of EMS patient was found to be hypoglycemic and given IV dextrose after which he recovered and refused further care. EMS was called again by family after the patient was found unresponsive and was given Narcan with no change. Patient was noted to have seizure activity and given 7 mg IV Ativan total including 3 from EMS. Patient was loaded with Keppra 2 g and was intubated for airway protection. Patient was found to have metabolic acidosis and hypoglycemia. Patient was found to be hypothermic and hypertensive in the emergency department. Patient's UDS was positive for barbiturates. Patient was admitted to the hospital. He was extubated on 11/17. EEG consistent with significant encephalopathy and does not rule out the possibility of epilepsy. Bronchoscopy revealed a large mass on the esophagus above the epiglottis. CT scan of the chest revealed pulmonary nodule and lesion in the liver suggestive of metastatic disease. Patient was evaluated by Oncology. 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 PEG tube placed on 11/23. Sodium level remain low and Nephrology was consulted for further evaluation. Past History Past Medical History: seizures Medications and Allergies Allergies Allergy/AdvReac Type Severity Reaction Status Date / Time No Known Allergies Allergy Verified 02/24/18 09:21 Home Medications Medication Instructions Recorded Confirmed Last Taken Type PHENobarbitaL [PHENobarbital] 15 mg PO BID 30 Days #60 tablet 05/30/20 11/12/20 Unknown Rx levETIRAcetam [Keppra TAB] 500 mg PO BID #60 tablet 05/30/20 11/23/20 Unknown Rx Vitamin B-1 100 mg PO DAILY 08/12/20 11/12/20 Unknown History levETIRAcetam [Keppra TAB] 1,000 mg PO BID 30 Days #60 tab 08/12/20 11/23/20 Unknown Rx levETIRAcetam [Keppra TAB] 1,000 mg PO BID 90 Days #180 tab 10/01/20 11/23/20 Unknown Rx haloperidoL [Haloperidol] 5 mg PO ONCE 11/12/20 11/12/20 Unknown History Active Meds: Active Medications Acetaminophen (Acetaminophen 325 Mg Tab) 650 mg PO Q4H PRN PRN Reason: Pain MILD(1-3)/Fever >100.5/BAR Albuterol (Albuterol 2.5 Mg/3 Ml Nebu) 2.5 mg IH Q3HRT PRN PRN Reason: Wheezing Lipase/Protease/Amylase (Lipase 10,500/Protease 25,000/Amylase 43,750 (Units) Dr Rangel) 1 each FEEDTUBE PRN PRN PRN Reason: For Clogged Feeding Tube Dextrose (Dextrose 50% In Water (25gm) 50 Ml Syringe) 50 ml IV ONCE PRN; Protocol PRN Reason: Hypoglycemia Last Admin: 11/17/20 23:29 Dose: 10 ml Documented by: Enoxaparin Sodium (Enoxaparin 40 Mg/0.4 Ml Inj) 40 mg SUB-Q QDAY@2200 KIRK; Protocol Last Admin: 11/28/20 21:35 Dose: 40 mg Documented by: Folic Acid (Folic Acid 1 Mg Tab) 1 mg PO DAILY [facility] Last Admin: 11/29/20 10:58 Dose: 1 mg Documented by: Hydralazine HCl (Hydralazine 20 Mg/1 Ml Inj) 10 mg IV Q4H PRN PRN Reason: Hypertension Last Admin: 11/14/20 07:30 Dose: 10 mg Documented by: Hydrophilic Ointment (Lip Therapy Vaseline) 1 applic TP Q2HR PRN PRN Reason: Dry Lips Sodium Chloride (Nacl 0.9% 1000 Ml) 1,000 mls @ 42 mls/hr IV DIRECT KIRK Last Admin: 11/29/20 01:28 Dose: 42 mls/hr Documented by: Insulin Human Regular (Insulin Regular, Human 100 Units/1 Ml) 0 units SUB-Q Q6H [facility]; Protocol Last Admin: 11/29/20 06:00 Dose: Not Given Documented by: Lansoprazole (Lansoprazole 30 Mg Solutab) 30 mg FEEDTUBE QDAY KIRK Last Admin: 11/29/20 10:59 Dose: 30 mg Documented by: Levetiracetam (Levetiracetam 500 Mg/5 Ml Oral Liqd) 1,000 mg FEEDTUBE BID [facility] Last Admin: 11/29/20 10:57 Dose: 1,000 mg Documented by: Levothyroxine Sodium (Levothyroxine 25 Mcg Tab) 25 mcg PO DAILY@0600 [facility] Last Admin: 11/29/20 11:00 Dose: 25 mcg Documented by: Metoclopramide HCl (Metoclopramide 10 Mg/2 Ml Inj) 10 mg IV Q6H PRN PRN Reason: Nausea And Vomiting Multi-Ingred Cream/Lotion/Oil/Oint (Mineral Oil/Petrolatum, White Ophth Oint 3.5 Gm) 1 applic OU Q4HR PRN PRN Reason: Dry Eye(s) Multivitamins (Multivitamins ,Therapeutic Tab) 1 each PO Q24H [facility] Last Admin: 11/29/20 00:33 Dose: 1 each Documented by: Naloxone HCl (Naloxone 0.4 Mg/1 Ml Inj) 2 mg IV Q2MIN PRN PRN Reason: Res Rate </= 8 or 02 SAT < 92% Ondansetron HCl (Ondansetron 4 Mg/2 Ml Inj) 4 mg IV Q3H PRN PRN Reason: Nausea And Vomiting Phenobarbital (Phenobarbital 15 Mg Tab) 15 mg PO BID [facility] Last Admin: 11/29/20 11:27 Dose: 15 mg Documented by: Simple Syrup (Simple Syrup 15 Ml) 15 ml FEEDTUBE PRN PRN PRN Reason: Hypoglycemia Simple Syrup (Simple Syrup 15 Ml) 30 ml FEEDTUBE PRN PRN PRN Reason: Hypoglycemia Sodium Bicarbonate (Sodium Bicarbonate 325 Mg Tab) 325 mg FEEDTUBE PRN PRN PRN Reason: For Clogged Feeding Tube Sodium Chloride (Sodium Chloride 0.9% 10 Ml Flush Syringe) 10 ml IV BID [facility] Last Admin: 11/29/20 10:58 Dose: 10 ml Documented by: Sodium Chloride (Sodium Chloride 0.9% 10 Ml Flush Syringe) 10 ml IV PRN PRN PRN Reason: LINE FLUSH Sodium Chloride (Sodium Chloride 1 Gm Tab) 2 gm PO TID [facility] Last Admin: 11/29/20 09:00 Dose: 2 gm Documented by: Thiamine HCl (Thiamine 100 Mg Tab) 100 mg PO QDAY [facility] Last Admin: 11/29/20 10:58 Dose: 100 mg Documented by: Review of Systems ROS unobtainable: due to mental status Exam - Vital Signs Vital signs: Vital Signs Pulse Resp BP Pulse Ox 84 11 L 192/98 96 11/11/20 08:46 11/11/20 08:46 11/11/20 08:46 11/11/20 08:46 Results - Lab Results 11/29/20 05:52 11/29/20 10:31 Most recent lab results ABG pH 7.499 (7.320-7.450) H 11/17/20 11:40 ABG pCO2 33.9 mm Hg 11/11/20 10:45 ABG pO2 222.2 mm Hg (80.0-90.0) H 11/11/20 10:45 ABG HCO3 24.9 mmol/L (20.0-26.0) 11/11/20 10:45 ABG O2 Saturation 98.1 (0-100) 11/17/20 11:40 Calcium TNR 11/29/20 10:31 Magnesium 2.00 mg/dL (1.7-2.3) 11/11/20 09:02 Assessment and Plan 1. 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 Serum Osmolality and cortisol pending. Continue Salt tablets. Decrease water flushes. Follow Sodium level. 2. Acute hypoxic respiratory failure: Now extubated. NC oxygen. 3. Acute metabolic encephalopathy: MRI brain is negative. Monitor. 4. Seizure disorder: Continue antiseizure medications. 5 SIRS: Etiology unknown. COVID-19 test negative. Monitor. 6. Locally advanced and possibly metastatic head/neck cancer: Per Heme-Onc not looking like a candidate for chemotherapy, maybe not a candidate for radiation. 7. Dysphagia: S/p PEG placement.
[2020-11-29 14:51] LABS: Blood Urea Nitrogen 17 mg/dL (9-20); Calcium 8.7 mg/dL (8.4-10.2); Hemolysis Index 10; Uric Acid 1.7 mg/dL (3.5-7.6)
[2020-11-29 14:53] LABS: BUN/Creatinine Ratio 34
[2020-11-29] MEDS ORDERED: TOLVAPTAN 15 MG TAB PO NR (18:42)
[2020-11-29] MEDS: ENOXAPARIN 40 MG/0.4 ML INJ SUB-Q SCH (23:34)
[2020-11-30] MEDS: INSULIN REGULAR, HUMAN 100 UNITS/1 ML SUB-Q SCH ×4 (02:18→18:05)
[2020-11-30] MEDS: SODIUM CHLORIDE 1 GM TAB PO SCH ×2 (08:00→14:00)
[2020-11-30 08:27] LABS: Blood Urea Nitrogen 17 mg/dL (9-20); Calcium 8.8 mg/dL (8.4-10.2); Hemolysis Index 10
[2020-11-30 08:30] LABS: BUN/Creatinine Ratio 34
--- NOTE | 2020-11-30 08:39 | Progress Note ---
Assessment and Plan 1. 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 Cortisol level pending. Continue Salt tablets. One dose of Tolvaptan today. Follow Sodium level. 2. Acute hypoxic respiratory failure: Now extubated. NC oxygen as needed. 3. Acute metabolic encephalopathy: MRI brain is negative. Monitor. 4. Seizure disorder: Continue antiseizure medications. 5 SIRS: Etiology unknown. COVID-19 test negative. Monitor. 6. 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 7. Dysphagia: S/p PEG placement. Subjective: Patient was seen and examined at the bedside. Objective: General appearance: well-developed, appears stated age, no distress noted HEENT: ATNC, CHE Neck: trachea midline Respiratory: ctab Heart: regular, S1S2, no murmur Gastrointestinal: soft, normoactive bowel sounds, not tender, PEG tube noted Integumentary: no rash, warm and dry Ext: no edema Neurologic: alert, aphasic, not following any command Musculoskeletal: no obvious deformity Subjective Date of service: 11/30/20 Principal diagnosis: Neurogenic Dysphagia Objective - Vital Signs Vital signs: Vital Signs - 12hr 11/29/20 11/30/20 21:34 04:18 Temperature 98.7 F 98.0 F Pulse Rate 72 77 Respiratory 16 18 Rate Blood Pressure 156/76 138/71 O2 Sat by Pulse 96 96 Oximetry - Lab 11/29/20 05:52 11/30/20 07:49 Most recent lab results ABG pH 7.499 (7.320-7.450) H 11/17/20 11:40 ABG pCO2 33.9 mm Hg 11/11/20 10:45 ABG pO2 222.2 mm Hg (80.0-90.0) H 11/11/20 10:45 ABG HCO3 24.9 mmol/L (20.0-26.0) 11/11/20 10:45 ABG O2 Saturation 98.1 (0-100) 11/17/20 11:40 Calcium 8.8 mg/dL (8.4-10.2) 11/30/20 07:49 Magnesium 2.00 mg/dL (1.7-2.3) 11/11/20 09:02 Medications & Allergies - Medications Allergies/Adverse Reactions: Allergies No Known Allergies Allergy (Verified 02/24/18 09:21) Home Medications: Home Medications Medication Instructions Recorded Confirmed Last Taken Type PHENobarbitaL [PHENobarbital] 15 mg PO BID 30 Days #60 tablet 05/30/20 11/12/20 Unknown Rx levETIRAcetam [Keppra TAB] 500 mg PO BID #60 tablet 05/30/20 11/23/20 Unknown Rx Vitamin B-1 100 mg PO DAILY 08/12/20 11/12/20 Unknown History levETIRAcetam [Keppra TAB] 1,000 mg PO BID 30 Days #60 tab 08/12/20 11/23/20 Unknown Rx levETIRAcetam [Keppra TAB] 1,000 mg PO BID 90 Days #180 tab 10/01/20 11/23/20 Unknown Rx haloperidoL [Haloperidol] 5 mg PO ONCE 11/12/20 11/12/20 Unknown History Active Medications: Generic Name Dose Route Start Last Admin Trade Name Freq PRN Reason Stop Dose Admin Acetaminophen 650 mg 11/11/20 22:58 Acetaminophen 325 Mg Tab PO Q4H PRN Pain MILD(1-3)/Fever >100.5/BAR Albuterol 2.5 mg 11/11/20 23:18 Albuterol 2.5 Mg/3 Ml Nebu IH Q3HRT PRN Wheezing Lipase/Protease/Amylase 1 each 11/12/20 12:00 Lipase 10,500/Protease 25,000/Amylase 43,750 (Units) Dr Rangel FEEDTUBE PRN PRN For Clogged Feeding Tube Dextrose 50 ml 11/11/20 22:11 11/17/20 23:29 Dextrose 50% In Water (25gm) 50 Ml Syringe IV 10 ml ONCE PRN Administration Hypoglycemia Protocol Enoxaparin Sodium 40 mg 11/12/20 22:00 11/29/20 23:34 Enoxaparin 40 Mg/0.4 Ml Inj SUB-Q 40 mg QDAY@2200 KIRK Administration Protocol Folic Acid 1 mg 11/16/20 10:00 11/29/20 10:58 Folic Acid 1 Mg Tab PO 1 mg DAILY KIRK Administration Hydralazine HCl 10 mg 11/12/20 10:30 11/14/20 07:30 Hydralazine 20 Mg/1 Ml Inj IV 10 mg Q4H PRN Administration Hypertension Hydrophilic Ointment 1 applic 11/11/20 09:14 Lip Therapy Vaseline TP Q2HR PRN Dry Lips Insulin Human Regular 0 units 11/12/20 18:00 11/30/20 06:48 Insulin Regular, Human 100 Units/1 Ml SUB-Q Not Given Q6H KIRK Protocol Lansoprazole 30 mg 11/24/20 10:00 11/29/20 10:59 Lansoprazole 30 Mg Solutab FEEDTUBE 30 mg QDAY IKRK Administration Levetiracetam 1,000 mg 11/24/20 10:00 11/29/20 23:34 Levetiracetam 500 Mg/5 Ml Oral Liqd FEEDTUBE 1,000 mg BID KIRK Administration Metoclopramide HCl 10 mg 11/11/20 22:58 Metoclopramide 10 Mg/2 Ml Inj IV Q6H PRN Nausea And Vomiting Multi-Ingred Cream/Lotion/Oil/Oint 1 applic 11/11/20 09:14 Mineral Oil/Petrolatum, White Ophth Oint 3.5 Gm OU Q4HR PRN Dry Eye(s) Multivitamins 1 each 11/13/20 00:00 11/29/20 23:51 Multivitamins ,Therapeutic Tab PO 1 each Q24H KIRK Administration Naloxone HCl 2 mg 11/11/20 08:33 Naloxone 0.4 Mg/1 Ml Inj IV Q2MIN PRN Res Rate </= 8 or 02 SAT < 92% Ondansetron HCl 4 mg 11/11/20 22:58 Ondansetron 4 Mg/2 Ml Inj IV Q3H PRN Nausea And Vomiting Phenobarbital 15 mg 11/11/20 23:45 11/29/20 23:49 Phenobarbital 15 Mg Tab PO 15 mg BID KIRK Administration Simple Syrup 15 ml 11/12/20 12:00 Simple Syrup 15 Ml FEEDTUBE PRN PRN Hypoglycemia Simple Syrup 30 ml 11/12/20 12:00 Simple Syrup 15 Ml FEEDTUBE PRN PRN Hypoglycemia Sodium Bicarbonate 325 mg 11/12/20 12:00 Sodium Bicarbonate 325 Mg Tab FEEDTUBE PRN PRN For Clogged Feeding Tube Sodium Chloride 10 ml 11/11/20 23:00 11/29/20 23:35 Sodium Chloride 0.9% 10 Ml Flush Syringe IV 10 ml BID KIRK Administration Sodium Chloride 10 ml 11/11/20 22:58 Sodium Chloride 0.9% 10 Ml Flush Syringe IV PRN PRN LINE FLUSH Sodium Chloride 2 gm 11/29/20 09:00 11/29/20 23:34 Sodium Chloride 1 Gm Tab PO 2 gm TID KIRK Administration Thiamine HCl 100 mg 11/16/20 10:00 11/29/20 10:58 Thiamine 100 Mg Tab PO 100 mg QDAY KIRK Administration
[2020-11-30] MEDS: THIAMINE 100 MG TAB PO SCH (09:15)
[2020-11-30] MEDS: LANSOPRAZOLE 30 MG SOLUTAB FEEDTUBE SCH (09:15)
[2020-11-30] MEDS: levETIRAcetam 500 MG/5 ML ORAL LIQD FEEDTUBE SCH ×2 (09:15→21:51)
[2020-11-30] MEDS: FOLIC ACID 1 MG TAB PO SCH (09:15)
[2020-11-30] MEDS: PHENobarbital 15 MG TAB PO SCH ×2 (10:21→23:58)
[2020-11-30] MEDS ORDERED: TOLVAPTAN 15 MG TAB PO NR (11:00)
--- NOTE | 2020-11-30 11:02 | Progress Note ---
Assessment and Plan Assessment and plan: #Acute hypoxic respiratory failure Now extubated Improved. Now on 2-1/2 L of oxygen # Acute metabolic encephalopathy Baseline unknown Has no ongoing infective process MRI brain is negative This could be his baseline #Seizure disorder Continue antiseizure medications No further seizures CT head and brain MRI showed no etiology for seizure #SIRS Etiology unknown-urinalysis negative, chest x-ray also negative COVID-19 test negative Discontinued antibiotics #Needs ENT as outpatient for evaluation of upper airway. He has no carcinoma as written in previous notes Needs further evaluation of liver lesion with MRI as outpatient Also needs to follow up with pulmonary in the office #Dysphagia s/p PEG placement #Hyponatremia Remains on salt tablets Nephrology on board. Will get tolvaptan. #Low TSH Free T4 wnl #DVT prophylaxis-SCDs, Lovenox #GI prophylaxis-PPIs #Disposition-Pending placement History Interval history: This is a 60-year-old male with seizure disorder current alcohol and tobacco abuse presents to the hospital on 11/11 after being found unresponsive. On arrival of EMS patient was found to be hypoglycemic and given IV dextrose after which he recovered and refused further care. EMS was called again by family after the patient was found unresponsive and was given Narcan with no change. Patient was noted to have seizure activity and given 7 mg IV Ativan total including 3 from EMS. Patient was loaded with Keppra 2 g and was intubated for airway protection. Patient was found to have metabolic acidosis and hypoglycemia on BMP. Patient was found to be hypothermic and hypertensive in the emergency department. Patient's UDS was positive for barbiturates. Patient was admitted to the hospital service for further work-up with consults to [facility] and neurology. 11/12. Patient remains intubated. On Keppra and phenobarbital. Neurology evaluation appreciated. EEG ordered. May need transfer to tertiary care for continuous EEG pending EEG results. 11/13. Remains intubated and on antiseizure medications. EEG has been performed but results are pending. Neurology on board 11/14. Remains intubated and on antiseizure medications. EEG has been performed but results are pending. Neurology on board 11/15: EEG is consistent with significant encephalopathy and does not rule out the possibility of epilepsy, patient remains on mechanical ventilation with minimal vent settings. No acute events reported overnight. 11/16: No acute events reported overnight, patient opens eyes spontaneously and withdraws to pain bilateral lower extremities. At the time my examination patient was on CMV 450/18/64/0.30 and has been started on a CPAP trial subsequently. No evidence of generalized seizures noted. Patient is a lui of the state 11/17: Patient was extubated today per [facility], no acute events reported overnight. Patient has a right sided gaze during my examination and was on CPAP 10/6 at 30% and he opens his eyes spontaneously. He does withdraw bilateral lower extremities to pain. His Keppra was decreased yesterday. ST evaluation pending 11/18: Follow-up EEG reading. Patient currently off sedation. Nursing to place Dobbhoff tube for feeding. Speech therapy to continue swallow evaluation. No new seizure activity. Continue phenobarbital and Keppra. Seizure precautions. Transfer to [facility] today. 11/19: Dobbhoff tube with removal difficulty yesterday. 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 CT scan of the chest revealed pulmonary nodule and lesion in the liver suggestive of metastatic disease. GI consultation pending. Patient was electively intubated yesterday for airway protection. Extubation today per pulmonary 11/20: Await speech therapy evaluation. Patient will likely need PEG tube placement. Consult GI for further evaluation. Oncology consultation for likely metastatic disease. 11/21: Await GI consultation. Appreciate oncology evaluation. 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 Check MRI brain to rule out brain metastasis. Poor prognosis. 11/22: GI recommends tissue diagnosis either with ENT involvement and evaluation of epiglottis mass with biopsy vs biopsy of the liver lesion. Follow-up with case management for obtaining consent for possible PEG tube placement 11/23. Brain MRI showed no brain metastasis. Plan for EGD as per GI. Patient will need possible ENT evaluation of mass with biopsy or biopsy of the liver lesion. 11/24. EGD shows no mass in the oropharynx. PEG was placed during EGD and patient has been started on tube feeds. He will need placement to a [facility] facility and has been accepted at some facilities. COVID-19 test is negative. 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 11/25 -11/27. Sodium trending down. Check osmolality, urine electrolytes. Continue salt tablets. 11/28. Sodium is till trending down. Will check cortisol and TSH. 11/29. Sodium is still <130 despite being on salt tablets and NS. Will consult nephrology 11/30. Nephrology on board - ordered tolvaptan today as sodium is still low. Will continue to trend Na. Hospitalist Physical - Physical exam Narrative exam: VITAL SIGNS: Reviewed. GENERAL: Awake HEAD: No signs of head trauma. EYES: Pupils are equal. Extraocular motions intact. MOUTH: Oropharynx is normal. NECK: No adenopathy, no JVD. CHEST: Chest with diminished breath sounds bilaterally. No wheezes, rales, or rhonchi. CARDIAC: normal S1 and S2, without murmurs, gallops, or rubs. ABDOMEN: Soft, non tender and non distended. No rebound or guarding, and no masses palpated. Bowel Sounds normal. MUSCULOSKELETAL: No edema NEUROLOGIC EXAM: Awake but nonverbal SKIN: No obvious lesions - Constitutional Vitals: Temp Pulse Resp BP Pulse Ox 98.0 F 77 18 138/71 96 11/30/20 04:18 11/30/20 04:18 11/30/20 04:18 11/30/20 04:18 11/30/20 04:18 HEART Score - HEART Score Troponin: Troponin T < 0.010 ng/mL (0.00-0.029) 11/11/20 09:02 Results - Labs CBC & Chem 7: 11/29/20 05:52 11/30/20 07:49 Labs: Laboratory Last Values WBC 9.7 K/mm3 (4.5-11.0) 11/29/20 05:52 RBC 4.48 M/mm3 (3.65-5.03) 11/29/20 05:52 Hgb 12.8 gm/dl (11.8-15.2) 11/29/20 05:52 Hct 37.9 % (35.5-45.6) 11/29/20 05:52 MCV 85 fl (84-94) 11/29/20 05:52 MCH 29 pg (28-32) 11/29/20 05:52 MCHC 34 % (32-34) 11/29/20 05:52 RDW 14.9 % (13.2-15.2) 11/29/20 05:52 Plt Count 407 K/mm3 (140-440) 11/29/20 05:52 Lymph % (Auto) 18.3 % (13.4-35.0) 11/26/20 06:23 [place] % (Auto) 9.8 % (0.0-7.3) H 11/26/20 06:23 Eos % (Auto) 1.1 % (0.0-4.3) 11/26/20 06:23 Baso % (Auto) 0.7 % (0.0-1.8) 11/26/20 06:23 Lymph # (Auto) 1.7 K/mm3 (1.2-5.4) 11/26/20 06:23 [place] # (Auto) 0.9 K/mm3 (0.0-0.8) H 11/26/20 06:23 Eos # (Auto) 0.1 K/mm3 (0.0-0.4) 11/26/20 06:23 Baso # (Auto) 0.1 K/mm3 (0.0-0.1) 11/26/20 06:23 Add Manual Diff Complete 11/29/20 05:52 Total Counted 100 11/29/20 05:52 Seg Neutrophils % 70.1 % (40.0-70.0) H 11/26/20 06:23 Seg Neuts % (Manual) 76.0 % (40.0-70.0) H 11/29/20 05:52 Lymphocytes % (Manual) 10.0 % (13.4-35.0) L 11/29/20 05:52 Reactive Lymphs % (Man) 4.0 % 11/27/20 05:50 Monocytes % (Manual) 10.0 % (0.0-7.3) H 11/29/20 05:52 Eosinophils % (Manual) 3.0 % (0.0-4.3) 11/29/20 05:52 Metamyelocytes % 1.0 % 11/29/20 05:52 Nucleated RBC % Not Reportable 11/29/20 05:52 Seg Neutrophils # 9.5 K/mm3 (1.8-7.7) H 11/26/20 06:23 Seg Neutrophils # Man 7.4 K/mm3 (1.8-7.7) 11/29/20 05:52 Band Neutrophils # 0.0 K/mm3 11/29/20 05:52 Lymphocytes # (Manual) 1.0 K/mm3 (1.2-5.4) L 11/29/20 05:52 Abs React Lymphs (Man) 0.0 K/mm3 11/29/20 05:52 Monocytes # (Manual) 1.0 K/mm3 (0.0-0.8) H 11/29/20 05:52 Eosinophils # (Manual) 0.3 K/mm3 (0.0-0.4) 11/29/20 05:52 Basophils # (Manual) 0.0 K/mm3 (0.0-0.1) 11/29/20 05:52 Metamyelocytes # 0.1 K/mm3 11/29/20 05:52 Myelocytes # 0.0 K/mm3 11/29/20 05:52 Promyelocytes # 0.0 K/mm3 11/29/20 05:52 Blast Cells # 0.0 K/mm3 11/29/20 05:52 WBC Morphology Not Reportable 11/29/20 05:52 Hypersegmented Neuts Not Reportable 11/29/20 05:52 Hyposegmented Neuts Not Reportable 11/29/20 05:52 Hypogranular Neuts Not Reportable 11/29/20 05:52 Smudge Cells Not Reportable 11/29/20 05:52 Toxic Granulation Not Reportable 11/29/20 05:52 Toxic Vacuolation Not Reportable 11/29/20 05:52 Dohle Bodies Not Reportable 11/29/20 05:52 Pelger-Huet Anomaly Not Reportable 11/29/20 05:52 Fercho Rods Not Reportable 11/29/20 05:52 Platelet Estimate Consistent w auto 11/29/20 05:52 Clumped Platelets Not Reportable 11/29/20 05:52 Plt Clumps, EDTA Not Reportable 11/29/20 05:52 Large Platelets Not Reportable 11/29/20 05:52 Giant Platelets Not Reportable 11/29/20 05:52 Platelet Satelliting Not Reportable 11/29/20 05:52 Plt Morphology Comment Not Reportable 11/29/20 05:52 RBC Morphology Not Reportable 11/29/20 05:52 Dimorphic RBCs Not Reportable 11/29/20 05:52 Polychromasia Not Reportable 11/29/20 05:52 Hypochromasia Not Reportable 11/29/20 05:52 Poikilocytosis Not Reportable 11/29/20 05:52 Anisocytosis Few 11/29/20 05:52 Microcytosis Not Reportable 11/29/20 05:52 Macrocytosis Not Reportable 11/29/20 05:52 Spherocytes Not Reportable 11/29/20 05:52 Pappenheimer Bodies Not Reportable 11/29/20 05:52 Sickle Cells Not Reportable 11/29/20 05:52 Target Cells Few 11/29/20 05:52 Tear Drop Cells Not Reportable 11/29/20 05:52 Ovalocytes Not Reportable 11/29/20 05:52 Helmet Cells Not Reportable 11/29/20 05:52 Kim-Oglesby Bodies Not Reportable 11/29/20 05:52 [place] Rings Not Reportable 11/29/20 05:52 Joni Cells Not Reportable 11/29/20 05:52 Bite Cells Not Reportable 11/29/20 05:52 Crenated Cell Not Reportable 11/29/20 05:52 Elliptocytes Not Reportable 11/29/20 05:52 Acanthocytes (Spur) Not Reportable 11/29/20 05:52 Rouleaux Not Reportable 11/29/20 05:52 Hemoglobin C Crystals Not Reportable 11/29/20 05:52 Schistocytes Not Reportable 11/29/20 05:52 Malaria parasites Not Reportable 11/29/20 05:52 Jones Bodies Not Reportable 11/29/20 05:52 Hem Pathologist Commnt No 11/29/20 05:52 PT 11.5 Sec. (12.2-14.9) L 11/11/20 09:02 INR 0.86 (0.87-1.13) L 11/11/20 09:02 APTT 25.5 Sec. (24.2-36.6) 11/11/20 09:02 Thrombin Time 17.0 Sec. (15.1-19.6) 11/11/20 09:02 ABG pH 7.499 (7.320-7.450) H 11/17/20 11:40 POC ABG pCO2 36.3 mmHg (32.0-48.0) 11/17/20 11:40 ABG pCO2 33.9 mm Hg 11/11/20 10:45 POC ABG pO2 140.8 mmHg (83-108) H 11/17/20 11:40 ABG pO2 222.2 mm Hg (80.0-90.0) H 11/11/20 10:45 POC ABG HCO3 27.6 11/17/20 11:40 ABG HCO3 24.9 mmol/L (20.0-26.0) 11/11/20 10:45 ABG O2 Saturation 98.1 (0-100) 11/17/20 11:40 ABG O2 Content 19.4 (0.0-44) 11/11/20 10:45 POC ABG Base Excess 4.4 11/17/20 11:40 ABG Base Excess 1.9 mmol/L (-2.0-3.0) 11/11/20 10:45 ABG Hemoglobin 11.8 (12.0-17.5) L 11/17/20 11:40 ABG Oxyhemoglobin 97.4 (94-98) 11/17/20 11:40 ABG Carboxyhemoglobin 0.6 % (0.0-5.0) 11/11/20 10:45 ABG Methemoglobin 0.3 (0.0-1.5) 11/17/20 11:40 ABG Sodium 135.1 mmol/L (136.0-145.0) L 11/17/20 11:40 ABG Potassium 4.2 mmol/L (3.40-4.50) 11/17/20 11:40 ABG Chloride 102.0 mmol/L (98-107) 11/17/20 11:40 ABG Glucose 110 mg/dL (65-95) H 11/17/20 11:40 Oxyhemoglobin 98.5 % (95.0-99.0) 11/11/20 10:45 Carboxyhemoglobin 0.4 (0.5-1.5) L 11/17/20 11:40 FiO2 21 % 11/11/20 10:45 FiO2 % 30 11/17/20 11:40 Sodium 125 mmol/L (137-145) L 11/30/20 07:49 Potassium 4.7 mmol/L (3.6-5.0) 11/30/20 07:49 Chloride 92.3 mmol/L (98-107) L 11/30/20 07:49 Carbon Dioxide 27 mmol/L (22-30) 11/30/20 07:49 Anion Gap 10 mmol/L 11/30/20 07:49 BUN 17 mg/dL (9-20) 11/30/20 07:49 Creatinine 0.5 mg/dL (0.8-1.3) L 11/30/20 07:49 Estimated GFR > 60 ml/min 11/30/20 07:49 BUN/Creatinine Ratio 34 % 11/30/20 07:49 Glucose 107 mg/dL (75-100) H 11/30/20 07:49 POC Glucose 116 mg/dL (70-105) H 11/30/20 06:21 Hemoglobin A1c 5.4 % (4-6) 11/12/20 07:26 Osmolality 274 Mosm/kg 11/29/20 13:08 Uric Acid 1.7 mg/dL (3.5-7.6) L 11/29/20 13:08 Calcium 8.8 mg/dL (8.4-10.2) 11/30/20 07:49 Magnesium 2.00 mg/dL (1.7-2.3) 11/11/20 09:02 Total Bilirubin 0.40 mg/dL (0.1-1.2) 11/29/20 05:52 AST 42 units/L (5-40) H 11/29/20 05:52 ALT 30 units/L (7-56) 11/29/20 05:52 Alkaline Phosphatase 156 units/L (35-129) H 11/29/20 05:52 Ammonia 29.0 umol/L (25-60) 11/12/20 08:47 Total Creatine Kinase 169 units/L (55-170) 11/11/20 09:02 CK-MB (CK-2) 6.6 ng/mL (0.0-4.0) H 11/11/20 09:02 CK-MB (CK-2) Rel Index 3.9 (0-4) 11/11/20 09:02 Troponin T < 0.010 ng/mL (0.00-0.029) 11/11/20 09:02 Total Protein 7.8 g/dL (6.3-8.2) 11/29/20 05:52 Albumin 3.2 g/dL (3.9-5) L 11/29/20 05:52 Albumin/Globulin Ratio 0.7 % 11/29/20 05:52 TSH 5.610 mlU/mL (0.270-4.200) H 11/29/20 05:52 Free T4 1.24 ng/dL (0.76-1.46) 11/29/20 10:31 Arterial Blood Glucose 110 mg/dL (65-95) H 11/17/20 11:40 Arterial Blood Ionized Calcium 4.9 mg/dL (4.6-5.3) 11/17/20 11:40 Urine Color Yellow (Yellow) 11/11/20 20: Urine Turbidity Clear (Clear) 11/11/20 20: Urine pH 6.0 (5.0-7.0) 11/11/20 20: Ur Specific [place] 1.045 (1.003-1.030) H 11/11/20 20:27 Urine Protein 100 mg/dl mg/dL (Negative) 11/11/20 20: Urine Glucose (UA) Neg mg/dL (Negative) 11/11/20 20:27 Urine Ketones Neg mg/dL (Negative) 11/11/20 20:27 Urine Blood Sm (Negative) 11/11/20 20: Urine Nitrite Neg (Negative) 11/11/20 20: Urine Bilirubin Neg (Negative) 11/11/20 20: Urine Urobilinogen 4.0 mg/dL (<2.0) 11/11/20 20:27 Ur Leukocyte Esterase Neg (Negative) 11/11/20 20:27 Urine WBC (Auto) 1.0 /HPF (0.0-6.0) 11/11/20 20:27 Urine RBC (Auto) 4.0 /HPF (0.0-6.0) 11/11/20 20:27 U Epithel Cells (Auto) 12.0 /HPF (0-13.0) 11/11/20 20: Urine Bacteria (Auto) 1+ /HPF (Negative) 11/11/20 20:27 Urine Mucus Few /HPF 11/11/20 20:27 Urine Osmolality 610 Mosm/kg 11/29/20 11:09 Urine Opiates Screen Negative 11/11/20 20: Urine Methadone Screen Negative 11/11/20 20:27 Ur Barbiturates Screen Positive 11/11/20 20:27 Ur Phencyclidine Scrn Negative 11/11/20 20:27 Ur Amphetamines Screen Negative 11/11/20 20:27 Phenobarbital 4.3 ug/mL (15.0-40.0) L 11/12/20 08:47 U Benzodiazepines Scrn Negative 11/11/20 20:27 Urine Cocaine Screen Negative 11/11/20 20:27 U Marijuana (THC) Screen Negative 11/11/20 20:27 Drugs of Abuse Note Disclamer 11/11/20 20:27 Plasma/Serum Alcohol < 0.01 % (0-0.07) 11/11/20 09:02 Coronavirus (PCR) Negative (Negative) 11/23/20 Unknown [place]/IV: Voiding Method Condom Catheter Active Medications - Current Medications Current Medications: Generic Name Dose Route Start Last Admin Trade Name Freq PRN Reason Stop Dose Admin Acetaminophen 650 mg 11/11/20 22:58 Acetaminophen 325 Mg Tab PO Q4H PRN Pain MILD(1-3)/Fever >100.5/BAR Albuterol 2.5 mg 11/11/20 23:18 Albuterol 2.5 Mg/3 Ml Nebu IH Q3HRT PRN Wheezing Lipase/Protease/Amylase 1 each 11/12/20 12:00 Lipase 10,500/Protease 25,000/Amylase 43,750 (Units) Dr Rangel FEEDTUBE PRN PRN For Clogged Feeding Tube Dextrose 50 ml 11/11/20 22:11 11/17/20 23:29 Dextrose 50% In Water (25gm) 50 Ml Syringe IV 10 ml ONCE PRN Administration Hypoglycemia Protocol Enoxaparin Sodium 40 mg 11/12/20 22:00 11/29/20 23:34 Enoxaparin 40 Mg/0.4 Ml Inj SUB-Q 40 mg QDAY@2200 KIRK Administration Protocol Folic Acid 1 mg 11/16/20 10:00 11/30/20 09:15 Folic Acid 1 Mg Tab PO 1 mg DAILY KIRK Administration Hydralazine HCl 10 mg 11/12/20 10:30 11/14/20 07:30 Hydralazine 20 Mg/1 Ml Inj IV 10 mg Q4H PRN Administration Hypertension Hydrophilic Ointment 1 applic 11/11/20 09:14 Lip Therapy Vaseline TP Q2HR PRN Dry Lips Insulin Human Regular 0 units 11/12/20 18:00 11/30/20 06:48 Insulin Regular, Human 100 Units/1 Ml SUB-Q Not Given Q6H KIRK Protocol Lansoprazole 30 mg 11/24/20 10:00 11/30/20 09:15 Lansoprazole 30 Mg Solutab FEEDTUBE 30 mg QDAY KIRK Administration Levetiracetam 1,000 mg 11/24/20 10:00 11/30/20 09:15 Levetiracetam 500 Mg/5 Ml Oral Liqd FEEDTUBE 1,000 mg BID KIRK Administration Metoclopramide HCl 10 mg 11/11/20 22:58 Metoclopramide 10 Mg/2 Ml Inj IV Q6H PRN Nausea And Vomiting Multi-Ingred Cream/Lotion/Oil/Oint 1 applic 11/11/20 09:14 Mineral Oil/Petrolatum, White Ophth Oint 3.5 Gm OU Q4HR PRN Dry Eye(s) Multivitamins 1 each 11/13/20 00:00 11/29/20 23:51 Multivitamins ,Therapeutic Tab PO 1 each Q24H KIRK Administration Naloxone HCl 2 mg 11/11/20 08:33 Naloxone 0.4 Mg/1 Ml Inj IV Q2MIN PRN Res Rate </= 8 or 02 SAT < 92% Ondansetron HCl 4 mg 11/11/20 22:58 Ondansetron 4 Mg/2 Ml Inj IV Q3H PRN Nausea And Vomiting Phenobarbital 15 mg 11/11/20 23:45 11/30/20 10:21 Phenobarbital 15 Mg Tab PO 15 mg BID KIRK Administration Simple Syrup 15 ml 11/12/20 12:00 Simple Syrup 15 Ml FEEDTUBE PRN PRN Hypoglycemia Simple Syrup 30 ml 11/12/20 12:00 Simple Syrup 15 Ml FEEDTUBE PRN PRN Hypoglycemia Sodium Bicarbonate 325 mg 11/12/20 12:00 Sodium Bicarbonate 325 Mg Tab FEEDTUBE PRN PRN For Clogged Feeding Tube Sodium Chloride 10 ml 11/11/20 23:00 11/30/20 09:18 Sodium Chloride 0.9% 10 Ml Flush Syringe IV 10 ml BID KIRK Administration Sodium Chloride 10 ml 11/11/20 22:58 Sodium Chloride 0.9% 10 Ml Flush Syringe IV PRN PRN LINE FLUSH Sodium Chloride 2 gm 11/29/20 09:00 11/30/20 08:00 Sodium Chloride 1 Gm Tab PO 2 gm TID KIRK Administration Thiamine HCl 100 mg 11/16/20 10:00 11/30/20 09:15 Thiamine 100 Mg Tab PO 100 mg QDAY KIRK Administration Tolvaptan 15 mg 11/30/20 11:00 11/30/20 10:31 Tolvaptan 15 Mg Tab PO 11/30/20 11:01 15 mg ONCE NR Administration Nutrition/Malnutrition Assess - Dietary Evaluation Nutrition/Malnutrition Findings: Nutrition Notes Start: 11/12/20 08:26 Freq: Status: Active Protocol: Document 11/30/20 09:41 (Rec: 11/30/20 09:51 [id number]) Nutrition Notes Initial or Follow up Reassessment Current Diagnosis Respiratory Failure,Stroke Other Pertinent Diagnosis Seizures, Neurogenic Dysphagia Current Diet Jevity 1.2 at 60 ml/hr Labs/Tests Na 125 Pertinent Medications NaCl 2 grams Height 5 ft 9 in Weight 60.8 kg [place] Body Weight (kg) 72.72 BMI 19.8 Weight change and time frame wt flucuations Weight Status Underweight Subjective/Other Information FU for TF tolerance. Pt with chronic hyponatermia. Will adjust water flush. Per chart, pt tolerating TF at goal. Percent of energy/protein needs met: 100%/100% Burn Absent Trauma Absent GI Symptoms None Difficulty In Swallowing Current % PO Negligible Minimum of two criteria No Interpretation of Weight Loss (severe) >5% in 1 month #2 Nutrition Diagnosis Inadequate energy intake Diagnosis Progress(for reassessment Continues documentation) #1 Nutrition Diagnosis Inadequate oral intake Diagnosis Progress(for reassessment Continues documentation) Is patient on ventilator? No Is Patient Ambulatory and/or Out of Bed No REE-([facility]-confined to bed) [phone] Calculation Used for Recommendations [facility] Additional Notes Protein: 70-84 g (1.0-1.2 g/kg ABW) Fluid: 1 ml/kcal Nutrition Intervention Change Diet Order: TF Nutrition Support: Jevity 1.2 at 60 ml/hr Flush 50 mL q4h Kcal 1,728 Protein (gm) 80 Fluid (mL) 1,162 Goal #1 Meet at least 75% of estimated energy and protein needs via TF Goal #2 weight stability/increase Anticipated Discharge Needs: TF Jevity 1.2 at 60 ml/hr Follow-Up By: 12/02/20 Additional Comments FU for TF tolerance and wt changes
[2020-11-30] MEDS: ENOXAPARIN 40 MG/0.4 ML INJ SUB-Q SCH (21:51)
[2020-11-30] MEDS: MULTIVITAMINS ,THERAPEUTIC TAB PO SCH (23:00)
[2020-12-01] MEDS: INSULIN REGULAR, HUMAN 100 UNITS/1 ML SUB-Q SCH ×4 (03:35→17:44)
[2020-12-01] MEDS: SODIUM CHLORIDE 1 GM TAB PO SCH ×4 (03:36→23:38)
[2020-12-01 06:45] LABS: Blood Urea Nitrogen 19 mg/dL (9-20); Hemolysis Index 0
[2020-12-01 06:58] LABS: BUN/Creatinine Ratio 32
[2020-12-01] MEDS: LANSOPRAZOLE 30 MG SOLUTAB FEEDTUBE SCH (09:33)
[2020-12-01] MEDS: PHENobarbital 15 MG TAB PO SCH ×2 (09:33→23:37)
[2020-12-01] MEDS: levETIRAcetam 500 MG/5 ML ORAL LIQD FEEDTUBE SCH ×2 (09:33→23:38)
[2020-12-01] MEDS: FOLIC ACID 1 MG TAB PO SCH (09:34)
[2020-12-01] MEDS: THIAMINE 100 MG TAB PO SCH (09:34)
--- NOTE | 2020-12-01 10:53 | Progress Note ---
Assessment and Plan Assessment and plan: #Acute hypoxic respiratory failure Now extubated Improved. Now on 2-1/2 L of oxygen # Acute metabolic encephalopathy Baseline unknown Has no ongoing infective process MRI brain is negative This could be his baseline #Seizure disorder Continue antiseizure medications No further seizures CT head and brain MRI showed no etiology for seizure #SIRS Etiology unknown-urinalysis negative, chest x-ray also negative COVID-19 test negative Discontinued antibiotics #Needs ENT as outpatient for evaluation of upper airway. He has no carcinoma as written in previous notes Needs further evaluation of liver lesion with MRI as outpatient Also needs to follow up with pulmonary in the office #Dysphagia s/p PEG placement #Hyponatremia Improved #Low TSH Free T4 wnl #DVT prophylaxis-SCDs, Lovenox #GI prophylaxis-PPIs #Disposition-Pending placement History Interval history: This is a 60-year-old male with seizure disorder current alcohol and tobacco abuse presents to the hospital on 11/11 after being found unresponsive. On arrival of EMS patient was found to be hypoglycemic and given IV dextrose after which he recovered and refused further care. EMS was called again by family after the patient was found unresponsive and was given Narcan with no change. Patient was noted to have seizure activity and given 7 mg IV Ativan total including 3 from EMS. Patient was loaded with Keppra 2 g and was intubated for airway protection. Patient was found to have metabolic acidosis and hypoglycemia on BMP. Patient was found to be hypothermic and hypertensive in the emergency department. Patient's UDS was positive for barbiturates. Patient was admitted to the hospital service for further work-up with consults to [facility] and neurology. 11/12. Patient remains intubated. On Keppra and phenobarbital. Neurology evaluation appreciated. EEG ordered. May need transfer to tertiary care for continuous EEG pending EEG results. 11/13. Remains intubated and on antiseizure medications. EEG has been performed but results are pending. Neurology on board 11/14. Remains intubated and on antiseizure medications. EEG has been performed but results are pending. Neurology on board 11/15: EEG is consistent with significant encephalopathy and does not rule out t he possibility of epilepsy, patient remains on mechanical ventilation with minimal vent settings. No acute events reported overnight. 11/16: No acute events reported overnight, patient opens eyes spontaneously and withdraws to pain bilateral lower extremities. At the time my examination patient was on CMV 450/18/64/0.30 and has been started on a CPAP trial subsequently. No evidence of generalized seizures noted. Patient is a lui of the state 11/17: Patient was extubated today per CCM, no acute events reported overnight. Patient has a right sided gaze during my examination and was on CPAP 10/ at 30% and he opens his eyes spontaneously. He does withdraw bilateral lower extremities to pain. His Keppra was decreased yesterday. ST evaluation pending 11/18: Follow-up EEG reading. Patient currently off sedation. Nursing to place Dobbhoff tube for feeding. Speech therapy to continue swallow evaluation. No new seizure activity. Continue phenobarbital and Keppra. Seizure precautions. Transfer to [facility] today. 11/19: Dobbhoff tube with removal difficulty yesterday. 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 CT scan of the chest revealed pulmonary nodule and lesion in the liver suggestive of metastatic disease. GI consultation pending. Patient was electively intubated yesterday for airway protection. Extubation today per pulmonary 11/20: Await speech therapy evaluation. Patient will likely need PEG tube placement. Consult GI for further evaluation. Oncology consultation for likely metastatic disease. 11/21: Await GI consultation. Appreciate oncology evaluation. 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 Check MRI brain to rule out brain metastasis. Poor prognosis. 11/22: GI recommends tissue diagnosis either with ENT involvement and evaluation of epiglottis mass with biopsy vs biopsy of the liver lesion. Follow-up with case management for obtaining consent for possible PEG tube placement 11/23. Brain MRI showed no brain metastasis. Plan for EGD as per GI. Patient will need possible ENT evaluation of mass with biopsy or biopsy of the liver l esion. 11/24. EGD shows no mass in the oropharynx. PEG was placed during EGD and patient has been started on tube feeds. He will need placement to a [facility] facility and has been accepted at some facilities. COVID-19 test is negative. 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 11/25 -11/27. Sodium trending down. Check osmolality, urine electrolytes. Continue salt tablets. 11/28. Sodium is till trending down. Will check cortisol and TSH. 11/29. Sodium is still <130 despite being on salt tablets and NS. Will consult nephrology 11/30. Nephrology on board - ordered tolvaptan today as sodium is still low. Will continue to trend Na. 12/01. Sodium better. Appreciate nephrology recs. Awaiting placement Hospitalist Physical - Physical exam Narrative exam: VITAL SIGNS: Reviewed. GENERAL: Awake HEAD: No signs of head trauma. EYES: Pupils are equal. Extraocular motions intact. MOUTH: Oropharynx is normal. NECK: No adenopathy, no JVD. CHEST: Chest with diminished breath sounds bilaterally. No wheezes, rales, or rhonchi. CARDIAC: normal S1 and S2, without murmurs, gallops, or rubs. ABDOMEN: Soft, non tender and non distended. No rebound or guarding, and no masses palpated. Bowel Sounds normal. MUSCULOSKELETAL: No edema NEUROLOGIC EXAM: Awake but nonverbal SKIN: No obvious lesions - Constitutional Vitals: Temp Pulse Resp BP Pulse Ox 99.5 F 82 15 137/73 96 12/01/20 06:07 12/01/20 06:07 12/01/20 06:07 12/01/20 06:07 12/01/20 06:07 HEART Score - HEART Score Troponin: Troponin T < 0.010 ng/mL (0.00-0.029) 11/11/20 09:02 Results - Labs CBC & Chem 7: 11/29/20 05:52 12/01/20 05:34 Labs: Laboratory Last Values WBC 9.7 K/mm3 (4.5-11.0) 11/29/20 05:52 RBC 4.48 M/mm3 (3.65-5.03) 11/29/20 05:52 Hgb 12.8 gm/dl (11.8-15.2) 11/29/20 05:52 Hct 37.9 % (35.5-45.6) 11/29/20 05:52 MCV 85 fl (84-94) 11/29/20 05:52 MCH 29 pg (28-32) 11/29/20 05:52 MCHC 34 % (32-34) 11/29/20 05:52 RDW 14.9 % (13.2-15.2) 11/29/20 05:52 Plt Count 407 K/mm3 (140-440) 11/29/20 05:52 Lymph % (Auto) 18.3 % (13.4-35.0) 11/26/20 06:23 [place] % (Auto) 9.8 % (0.0-7.3) H 11/26/20 06:23 Eos % (Auto) 1.1 % (0.0-4.3) 11/26/20 06:23 Baso % (Auto) 0.7 % (0.0-1.8) 11/26/20 06:23 Lymph # (Auto) 1.7 K/mm3 (1.2-5.4) 11/26/20 06:23 [place] # (Auto) 0.9 K/mm3 (0.0-0.8) H 11/26/20 06:23 Eos # (Auto) 0.1 K/mm3 (0.0-0.4) 11/26/20 06:23 Baso # (Auto) 0.1 K/mm3 (0.0-0.1) 11/26/20 06:23 Add Manual Diff Complete 11/29/20 05:52 Total Counted 100 11/29/20 05:52 Seg Neutrophils % 70.1 % (40.0-70.0) H 11/26/20 06:23 Seg Neuts % (Manual) 76.0 % (40.0-70.0) H 11/29/20 05:52 Lymphocytes % (Manual) 10.0 % (13.4-35.0) L 11/29/20 05:52 Reactive Lymphs % (Man) 4.0 % 11/27/20 05:50 Monocytes % (Manual) 10.0 % (0.0-7.3) H 11/29/20 05:52 Eosinophils % (Manual) 3.0 % (0.0-4.3) 11/29/20 05:52 Metamyelocytes % 1.0 % 11/29/20 05:52 Nucleated RBC % Not Reportable 11/29/20 05:52 Seg Neutrophils # 9.5 K/mm3 (1.8-7.7) H 11/26/20 06:23 Seg Neutrophils # Man 7.4 K/mm3 (1.8-7.7) 11/29/20 05:52 Band Neutrophils # 0.0 K/mm3 11/29/20 05:52 Lymphocytes # (Manual) 1.0 K/mm3 (1.2-5.4) L 11/29/20 05:52 Abs React Lymphs (Man) 0.0 K/mm3 11/29/20 05:52 Monocytes # (Manual) 1.0 K/mm3 (0.0-0.8) H 11/29/20 05:52 Eosinophils # (Manual) 0.3 K/mm3 (0.0-0.4) 11/29/20 05:52 Basophils # (Manual) 0.0 K/mm3 (0.0-0.1) 11/29/20 05:52 Metamyelocytes # 0.1 K/mm3 11/29/20 05:52 Myelocytes # 0.0 K/mm3 11/29/20 05:52 Promyelocytes # 0.0 K/mm3 11/29/20 05:52 Blast Cells # 0.0 K/mm3 11/29/20 05:52 WBC Morphology Not Reportable 11/29/20 05:52 Hypersegmented Neuts Not Reportable 11/29/20 05:52 Hyposegmented Neuts Not Reportable 11/29/20 05:52 Hypogranular Neuts Not Reportable 11/29/20 05:52 Smudge Cells Not Reportable 11/29/20 05:52 Toxic Granulation Not Reportable 11/29/20 05:52 Toxic Vacuolation Not Reportable 11/29/20 05:52 Dohle Bodies Not Reportable 11/29/20 05:52 Pelger-Huet Anomaly Not Reportable 11/29/20 05:52 Fercho Rods Not Reportable 11/29/20 05:52 Platelet Estimate Consistent w auto 11/29/20 05:52 Clumped Platelets Not Reportable 11/29/20 05:52 Plt Clumps, EDTA Not Reportable 11/29/20 05:52 Large Platelets Not Reportable 11/29/20 05:52 Giant Platelets Not Reportable 11/29/20 05:52 Platelet Satelliting Not Reportable 11/29/20 05:52 Plt Morphology Comment Not Reportable 11/29/20 05:52 RBC Morphology Not Reportable 11/29/20 05:52 Dimorphic RBCs Not Reportable 11/29/20 05:52 Polychromasia Not Reportable 11/29/20 05:52 Hypochromasia Not Reportable 11/29/20 05:52 Poikilocytosis Not Reportable 11/29/20 05:52 Anisocytosis Few 11/29/20 05:52 Microcytosis Not Reportable 11/29/20 05:52 Macrocytosis Not Reportable 11/29/20 05:52 Spherocytes Not Reportable 11/29/20 05:52 Pappenheimer Bodies Not Reportable 11/29/20 05:52 Sickle Cells Not Reportable 11/29/20 05:52 Target Cells Few 11/29/20 05:52 Tear Drop Cells Not Reportable 11/29/20 05:52 Ovalocytes Not Reportable 11/29/20 05:52 Helmet Cells Not Reportable 11/29/20 05:52 [place] Bodies Not Reportable 11/29/20 05:52 [place] Rings Not Reportable 11/29/20 05:52 Joni Cells Not Reportable 11/29/20 05:52 Bite Cells Not Reportable 11/29/20 05:52 Crenated Cell Not Reportable 11/29/20 05:52 Elliptocytes Not Reportable 11/29/20 05:52 Acanthocytes (Spur) Not Reportable 11/29/20 05:52 Rouleaux Not Reportable 11/29/20 05:52 Hemoglobin C Crystals Not Reportable 11/29/20 05:52 Schistocytes Not Reportable 11/29/20 05:52 Malaria parasites Not Reportable 11/29/20 05:52 Jones Bodies Not Reportable 11/29/20 05:52 Hem Pathologist Commnt No 11/29/20 05:52 PT 11.5 Sec. (12.2-14.9) L 11/11/20 09:02 INR 0.86 (0.87-1.13) L 11/11/20 09:02 APTT 25.5 Sec. (24.2-36.6) 11/11/20 09:02 Thrombin Time 17.0 Sec. (15.1-19.6) 11/11/20 09:02 ABG pH 7.499 (7.320-7.450) H 11/17/20 11:40 POC ABG pCO2 36.3 mmHg (32.0-48.0) 11/17/20 11:40 ABG pCO2 33.9 mm Hg 11/11/20 10:45 POC ABG pO2 140.8 mmHg (83-108) H 11/17/20 11:40 ABG pO2 222.2 mm Hg (80.0-90.0) H 11/11/20 10:45 POC ABG HCO3 27.6 11/17/20 11:40 ABG HCO3 24.9 mmol/L (20.0-26.0) 11/11/20 10:45 ABG O2 Saturation 98.1 (0-100) 11/17/20 11:40 ABG O2 Content 19.4 (0.0-44) 11/11/20 10:45 POC ABG Base Excess 4.4 11/17/20 11:40 ABG Base Excess 1.9 mmol/L (-2.0-3.0) 11/11/20 10:45 ABG Hemoglobin 11.8 (12.0-17.5) L 11/17/20 11:40 ABG Oxyhemoglobin 97.4 (94-98) 11/17/20 11:40 ABG Carboxyhemoglobin 0.6 % (0.0-5.0) 11/11/20 10:45 ABG Methemoglobin 0.3 (0.0-1.5) 11/17/20 11:40 ABG Sodium 135.1 mmol/L (136.0-145.0) L 11/17/20 11:40 ABG Potassium 4.2 mmol/L (3.40-4.50) 11/17/20 11:40 ABG Chloride 102.0 mmol/L (98-107) 11/17/20 11:40 ABG Glucose 110 mg/dL (65-95) H 11/17/20 11:40 Oxyhemoglobin 98.5 % (95.0-99.0) 11/11/20 10:45 Carboxyhemoglobin 0.4 (0.5-1.5) L 11/17/20 11:40 FiO2 21 % 11/11/20 10:45 FiO2 % 30 11/17/20 11:40 Sodium 131 mmol/L (137-145) L 12/01/20 05:34 Potassium 4.4 mmol/L (3.6-5.0) 12/01/20 05:34 Chloride 95.2 mmol/L (98-107) L 12/01/20 05:34 Carbon Dioxide 29 mmol/L (22-30) 12/01/20 05:34 Anion Gap 11 mmol/L 12/01/20 05:34 BUN 19 mg/dL (9-20) 12/01/20 05:34 Creatinine 0.6 mg/dL (0.8-1.3) L 12/01/20 05:34 Estimated GFR > 60 ml/min 12/01/20 05:34 BUN/Creatinine Ratio 32 % 12/01/20 05:34 Glucose 134 mg/dL (75-100) H 12/01/20 05:34 POC Glucose 125 mg/dL (70-105) H 12/01/20 06:04 Hemoglobin A1c 5.4 % (4-6) 11/12/20 07:26 Osmolality 274 Mosm/kg 11/29/20 13:08 Uric Acid 1.7 mg/dL (3.5-7.6) L 11/29/20 13:08 Calcium 9.0 mg/dL (8.4-10.2) 12/01/20 05:34 Magnesium 2.00 mg/dL (1.7-2.3) 11/11/20 09:02 Total Bilirubin 0.40 mg/dL (0.1-1.2) 11/29/20 05:52 AST 42 units/L (5-40) H 11/29/20 05:52 ALT 30 units/L (7-56) 11/29/20 05:52 Alkaline Phosphatase 156 units/L (35-129) H 11/29/20 05:52 Ammonia 29.0 umol/L (25-60) 11/12/20 08:47 Total Creatine Kinase 169 units/L (55-170) 11/11/20 09:02 CK-MB (CK-2) 6.6 ng/mL (0.0-4.0) H 11/11/20 09:02 CK-MB (CK-2) Rel Index 3.9 (0-4) 11/11/20 09:02 Troponin T < 0.010 ng/mL (0.00-0.029) 11/11/20 09:02 Total Protein 7.8 g/dL (6.3-8.2) 11/29/20 05:52 Albumin 3.2 g/dL (3.9-5) L 11/29/20 05:52 Albumin/Globulin Ratio 0.7 % 11/29/20 05:52 TSH 5.610 mlU/mL (0.270-4.200) H 11/29/20 05:52 Free T4 1.24 ng/dL (0.76-1.46) 11/29/20 10:31 Arterial Blood Glucose 110 mg/dL (65-95) H 11/17/20 11:40 Arterial Blood Ionized Calcium 4.9 mg/dL (4.6-5.3) 11/17/20 11:40 Urine Color Yellow (Yellow) 11/11/20 20: Urine Turbidity Clear (Clear) 11/11/20 20: Urine pH 6.0 (5.0-7.0) 11/11/20 20: Ur Specific [place] 1.045 (1.003-1.030) H 11/11/20 20:27 Urine Protein 100 mg/dl mg/dL (Negative) 11/11/20 20: Urine Glucose (UA) Neg mg/dL (Negative) 11/11/20 20:27 Urine Ketones Neg mg/dL (Negative) 11/11/20 20: Urine Blood Sm (Negative) 11/11/20 20: Urine Nitrite Neg (Negative) 11/11/20 20: Urine Bilirubin Neg (Negative) 11/11/20 20:27 Urine Urobilinogen 4.0 mg/dL (<2.0) 11/11/20 20:27 Ur Leukocyte Esterase Neg (Negative) 11/11/20 20:27 Urine WBC (Auto) 1.0 /HPF (0.0-6.0) 11/11/20 20:27 Urine RBC (Auto) 4.0 /HPF (0.0-6.0) 11/11/20 20:27 U Epithel Cells (Auto) 12.0 /HPF (0-13.0) 11/11/20 20: Urine Bacteria (Auto) 1+ /HPF (Negative) 11/11/20 20:27 Urine Mucus Few /HPF 11/11/20 20:27 Urine Osmolality 610 Mosm/kg 11/29/20 11:09 Urine Opiates Screen Negative 11/11/20 20: Urine Methadone Screen Negative 11/11/20 20:27 Ur Barbiturates Screen Positive 11/11/20 20:27 Ur Phencyclidine Scrn Negative 11/11/20 20:27 Ur Amphetamines Screen Negative 11/11/20 20:27 Phenobarbital 4.3 ug/mL (15.0-40.0) L 11/12/20 08:47 U Benzodiazepines Scrn Negative 11/11/20 20:27 Urine Cocaine Screen Negative 11/11/20 20:27 U Marijuana (THC) Screen Negative 11/11/20 20:27 Drugs of Abuse Note Disclamer 11/11/20 20:27 Plasma/Serum Alcohol < 0.01 % (0-0.07) 11/11/20 09:02 Coronavirus (PCR) Negative (Negative) 11/23/20 Unknown [place]/IV: Voiding Method Condom Catheter Active Medications - Current Medications Current Medications: Generic Name Dose Route Start Last Admin Trade Name Freq PRN Reason Stop Dose Admin Acetaminophen 650 mg 11/11/20 22:58 Acetaminophen 325 Mg Tab PO Q4H PRN Pain MILD(1-3)/Fever >100.5/BAR Albuterol 2.5 mg 11/11/20 23:18 Albuterol 2.5 Mg/3 Ml Nebu IH Q3HRT PRN Wheezing Lipase/Protease/Amylase 1 each 11/12/20 12:00 Lipase 10,500/Protease 25,000/Amylase 43,750 (Units) Dr Rangel FEEDTUBE PRN PRN For Clogged Feeding Tube Dextrose 50 ml 11/11/20 22:11 11/17/20 23:29 Dextrose 50% In Water (25gm) 50 Ml Syringe IV 10 ml ONCE PRN Administration Hypoglycemia Protocol Enoxaparin Sodium 40 mg 11/12/20 22:00 11/30/20 21:51 Enoxaparin 40 Mg/0.4 Ml Inj SUB-Q 40 mg QDAY@2200 KIRK Administration Protocol Folic Acid 1 mg 11/16/20 10:00 12/01/20 09:34 Folic Acid 1 Mg Tab PO 1 mg DAILY KIRK Administration Hydralazine HCl 10 mg 11/12/20 10:30 11/14/20 07:30 Hydralazine 20 Mg/1 Ml Inj IV 10 mg Q4H PRN Administration Hypertension Hydrophilic Ointment 1 applic 11/11/20 09:14 Lip Therapy Vaseline TP Q2HR PRN Dry Lips Insulin Human Regular 0 units 11/12/20 18:00 12/01/20 06:51 Insulin Regular, Human 100 Units/1 Ml SUB-Q Not Given Q6H [facility] Protocol Lansoprazole 30 mg 11/24/20 10:00 12/01/20 09:33 Lansoprazole 30 Mg Solutab FEEDTUBE 30 mg QDAY KIRK Administration Levetiracetam 1,000 mg 11/24/20 10:00 12/01/20 09:33 Levetiracetam 500 Mg/5 Ml Oral Liqd FEEDTUBE 1,000 mg BID KIRK Administration Metoclopramide HCl 10 mg 11/11/20 22:58 Metoclopramide 10 Mg/2 Ml Inj IV Q6H PRN Nausea And Vomiting Multi-Ingred Cream/Lotion/Oil/Oint 1 applic 11/11/20 09:14 Mineral Oil/Petrolatum, White Ophth Oint 3.5 Gm OU Q4HR PRN Dry Eye(s) Multivitamins 1 each 11/13/20 00:00 11/30/20 23:00 Multivitamins ,Therapeutic Tab PO 1 each Q24H KIRK Administration Naloxone HCl 2 mg 11/11/20 08:33 Naloxone 0.4 Mg/1 Ml Inj IV Q2MIN PRN Res Rate </= 8 or 02 SAT < 92% Ondansetron HCl 4 mg 11/11/20 22:58 Ondansetron 4 Mg/2 Ml Inj IV Q3H PRN Nausea And Vomiting Phenobarbital 15 mg 11/11/20 23:45 12/01/20 09:33 Phenobarbital 15 Mg Tab PO 15 mg BID KIRK Administration Simple Syrup 15 ml 11/12/20 12:00 Simple Syrup 15 Ml FEEDTUBE PRN PRN Hypoglycemia Simple Syrup 30 ml 11/12/20 12:00 Simple Syrup 15 Ml FEEDTUBE PRN PRN Hypoglycemia Sodium Bicarbonate 325 mg 11/12/20 12:00 Sodium Bicarbonate 325 Mg Tab FEEDTUBE PRN PRN For Clogged Feeding Tube Sodium Chloride 10 ml 11/11/20 23:00 12/01/20 09:34 Sodium Chloride 0.9% 10 Ml Flush Syringe IV 10 ml BID KIRK Administration Sodium Chloride 10 ml 11/11/20 22:58 Sodium Chloride 0.9% 10 Ml Flush Syringe IV PRN PRN LINE FLUSH Sodium Chloride 2 gm 11/30/20 22:23 12/01/20 09:33 Sodium Chloride 1 Gm Tab PO 2 gm TID KIRK Administration Thiamine HCl 100 mg 11/16/20 10:00 12/01/20 09:34 Thiamine 100 Mg Tab PO 100 mg QDAY KIRK Administration Nutrition/Malnutrition Assess - Dietary Evaluation Nutrition/Malnutrition Findings: Nutrition Notes Start: 11/12/20 08:26 Freq: Status: Active Protocol: Document 11/30/20 09:41 (Rec: 11/30/20 09:51 [email or web address]) Nutrition Notes Initial or Follow up Reassessment Current Diagnosis Respiratory Failure,Stroke Other Pertinent Diagnosis Seizures, Neurogenic Dysphagia Current Diet Jevity 1.2 at 60 ml/hr Labs/Tests Na 125 Pertinent Medications NaCl 2 grams Height 5 ft 9 in Weight 60.8 kg [place] Body Weight (kg) 72.72 BMI 19.8 Weight change and time frame wt flucuations Weight Status Underweight Subjective/Other Information FU for TF tolerance. Pt with chronic hyponatermia. Will adjust water flush, RN informed. Per chart, pt tolerating TF at goal. Percent of energy/protein needs met: 100%/100% Burn Absent Trauma Absent GI Symptoms None Difficulty In Swallowing Current % PO Negligible Minimum of two criteria No Interpretation of Weight Loss (severe) >5% in 1 month #2 Nutrition Diagnosis Inadequate energy intake Diagnosis Progress(for reassessment Continues documentation) #1 Nutrition Diagnosis Inadequate oral intake Diagnosis Progress(for reassessment Continues documentation) Is patient on ventilator? No Is Patient Ambulatory and/or Out of Bed No REE-([facility]-confined to bed) 3731.769 Calculation Used for Recommendations [facility] Additional Notes Protein: 70-84 g (1.0-1.2 g/kg ABW) Fluid: 1 ml/kcal Nutrition Intervention Change Diet Order: TF Nutrition Support: Jevity 1.2 at 60 ml/hr Flush 50 mL q4h Kcal 1,728 Protein (gm) 80 Fluid (mL) 1,162 Goal #1 Meet at least 75% of estimated energy and protein needs via TF Goal #2 weight stability/increase Anticipated Discharge Needs: TF Jevity 1.2 at 60 ml/hr Follow-Up By: 12/02/20 Additional Comments FU for TF tolerance and wt changes
--- NOTE | 2020-12-01 14:05 | Progress Note ---
Assessment and Plan 1. 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 Cortisol level pending. Continue Salt tablets. One dose of Tolvaptan 11/30. Follow Sodium level. 2. Acute hypoxic respiratory failure: Now extubated. NC oxygen as needed. 3. Acute metabolic encephalopathy: MRI brain showed chronic changes. Monitor. 4. Seizure disorder: Continue antiseizure medications. 5 SIRS: Etiology unknown. COVID-19 test negative. Monitor. 6. 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 7. Dysphagia: S/p PEG placement. Subjective: Patient was seen and examined at the bedside. Objective: General appearance: well-developed, appears stated age, no distress noted HEENT: ATNC, CHE Neck: trachea midline Respiratory: ctab Heart: regular, S1S2, no murmur Gastrointestinal: soft, normoactive bowel sounds, not tender, PEG tube noted Integumentary: no rash, warm and dry Ext: no edema Neurologic: alert, aphasic, not following any command Subjective Date of service: 12/01/20 Principal diagnosis: Neurogenic Dysphagia Objective - Vital Signs Vital signs: Vital Signs - 12hr 12/01/20 12/01/20 12/01/20 06:07 10:00 13:23 Temperature 99.5 F 97.2 F L Pulse Rate 82 85 Respiratory 15 18 18 Rate Blood Pressure 137/73 135/71 O2 Sat by Pulse 96 97 Oximetry - Lab 11/29/20 05:52 12/01/20 05:34 Most recent lab results ABG pH 7.499 (7.320-7.450) H 11/17/20 11:40 ABG pCO2 33.9 mm Hg 11/11/20 10:45 ABG pO2 222.2 mm Hg (80.0-90.0) H 11/11/20 10:45 ABG HCO3 24.9 mmol/L (20.0-26.0) 11/11/20 10:45 ABG O2 Saturation 98.1 (0-100) 11/17/20 11:40 Calcium 9.0 mg/dL (8.4-10.2) 12/01/20 05:34 Magnesium 2.00 mg/dL (1.7-2.3) 11/11/20 09:02 Medications & Allergies - Medications Allergies/Adverse Reactions: Allergies No Known Allergies Allergy (Verified 02/24/18 09:21) Home Medications: Home Medications Medication Instructions Recorded Confirmed Last Taken Type PHENobarbitaL [PHENobarbital] 15 mg PO BID 30 Days #60 tablet 05/30/20 11/12/20 Unknown Rx levETIRAcetam [Keppra TAB] 500 mg PO BID #60 tablet 05/30/20 11/23/20 Unknown Rx Vitamin B-1 100 mg PO DAILY 08/12/20 11/12/20 Unknown History levETIRAcetam [Keppra TAB] 1,000 mg PO BID 30 Days #60 tab 08/12/20 11/23/20 Un known Rx levETIRAcetam [Keppra TAB] 1,000 mg PO BID 90 Days #180 tab 10/01/20 11/23/20 Unknown Rx haloperidoL [Haloperidol] 5 mg PO ONCE 11/12/20 11/12/20 Unknown History Active Medications: Generic Name Dose Route Start Last Admin Trade Name Freq PRN Reason Stop Dose Admin Acetaminophen 650 mg 11/11/20 22:58 Acetaminophen 325 Mg Tab PO Q4H PRN Pain MILD(1-3)/Fever >100.5/BAR Albuterol 2.5 mg 11/11/20 23:18 Albuterol 2.5 Mg/3 Ml Nebu IH Q3HRT PRN Wheezing Lipase/Protease/Amylase 1 each 11/12/20 12:00 Lipase 10,500/Protease 25,000/Amylase 43,750 (Units) Dr Rangel FEEDTUBE PRN PRN For Clogged Feeding Tube Dextrose 50 ml 11/11/20 22:11 11/17/20 23:29 Dextrose 50% In Water (25gm) 50 Ml Syringe IV 10 ml ONCE PRN Administration Hypoglycemia Protocol Enoxaparin Sodium 40 mg 11/12/20 22:00 11/30/20 21:51 Enoxaparin 40 Mg/0.4 Ml Inj SUB-Q 40 mg QDAY@2200 KIRK Administration Protocol Folic Acid 1 mg 11/16/20 10:00 12/01/20 09:34 Folic Acid 1 Mg Tab PO 1 mg DAILY KIRK Administration Hydralazine HCl 10 mg 11/12/20 10:30 11/14/20 07:30 Hydralazine 20 Mg/1 Ml Inj IV 10 mg Q4H PRN Administration Hypertension Hydrophilic Ointment 1 applic 11/11/20 09:14 Lip Therapy Vaseline TP Q2HR PRN Dry Lips Insulin Human Regular 0 units 11/12/20 18:00 12/01/20 13:44 Insulin Regular, Human 100 Units/1 Ml SUB-Q Not Given Q6H [facility] Protocol Lansoprazole 30 mg 11/24/20 10:00 12/01/20 09:33 Lansoprazole 30 Mg Solutab FEEDTUBE 30 mg QDAY KIRK Administration Levetiracetam 1,000 mg 11/24/20 10:00 12/01/20 09:33 Levetiracetam 500 Mg/5 Ml Oral Liqd FEEDTUBE 1,000 mg BID KIRK Administration Metoclopramide HCl 10 mg 11/11/20 22:58 Metoclopramide 10 Mg/2 Ml Inj IV Q6H PRN Nausea And Vomiting Multi-Ingred Cream/Lotion/Oil/Oint 1 applic 11/11/20 09:14 Mineral Oil/Petrolatum, White Ophth Oint 3.5 Gm OU Q4HR PRN Dry Eye(s) Multivitamins 1 each 11/13/20 00:00 11/30/20 23:00 Multivitamins ,Therapeutic Tab PO 1 each Q24H KIRK Administration Naloxone HCl 2 mg 11/11/20 08:33 Naloxone 0.4 Mg/1 Ml Inj IV Q2MIN PRN Res Rate </= 8 or 02 SAT < 92% Ondansetron HCl 4 mg 11/11/20 22:58 Ondansetron 4 Mg/2 Ml Inj IV Q3H PRN Nausea And Vomiting Phenobarbital 15 mg 11/11/20 23:45 12/01/20 09:33 Phenobarbital 15 Mg Tab PO 15 mg BID KIRK Administration Simple Syrup 15 ml 11/12/20 12:00 Simple Syrup 15 Ml FEEDTUBE PRN PRN Hypoglycemia Simple Syrup 30 ml 11/12/20 12:00 Simple Syrup 15 Ml FEEDTUBE PRN PRN Hypoglycemia Sodium Bicarbonate 325 mg 11/12/20 12:00 Sodium Bicarbonate 325 Mg Tab FEEDTUBE PRN PRN For Clogged Feeding Tube Sodium Chloride 10 ml 11/11/20 23:00 12/01/20 09:34 Sodium Chloride 0.9% 10 Ml Flush Syringe IV 10 ml BID KIRK Administration Sodium Chloride 10 ml 11/11/20 22:58 Sodium Chloride 0.9% 10 Ml Flush Syringe IV PRN PRN LINE FLUSH Sodium Chloride 2 gm 11/30/20 22:23 12/01/20 13:50 Sodium Chloride 1 Gm Tab PO 2 gm TID KIRK Administration Thiamine HCl 100 mg 11/16/20 10:00 12/01/20 09:34 Thiamine 100 Mg Tab PO 100 mg QDAY KIRK Administration
[2020-12-01] MEDS: ENOXAPARIN 40 MG/0.4 ML INJ SUB-Q SCH (23:37)
[2020-12-02] MEDS: MULTIVITAMINS ,THERAPEUTIC TAB PO SCH (01:15)
[2020-12-02] MEDS: INSULIN REGULAR, HUMAN 100 UNITS/1 ML SUB-Q SCH ×4 (01:16→17:02)
[2020-12-02 06:41] LABS: Blood Urea Nitrogen 22 mg/dL (9-20); Calcium 9.2 mg/dL (8.4-10.2); Hemolysis Index 4
[2020-12-02 06:44] LABS: BUN/Creatinine Ratio 37
--- NOTE | 2020-12-02 10:08 | Progress Note ---
Assessment and Plan Assessment and plan: #Acute hypoxic respiratory failure Now extubated Improved. Now on 2-1/2 L of oxygen # Acute metabolic encephalopathy Baseline unknown Has no ongoing infective process MRI brain is negative This could be his baseline #Seizure disorder Continue antiseizure medications No further seizures CT head and brain MRI showed no etiology for seizure #SIRS Etiology unknown-urinalysis negative, chest x-ray also negative COVID-19 test negative Discontinued antibiotics #Needs ENT as outpatient for evaluation of upper airway. He has no carcinoma as written in previous notes Needs further evaluation of liver lesion with MRI as outpatient Also needs to follow up with pulmonary in the office #Dysphagia s/p PEG placement #Hyponatremia Improved #Low TSH Free T4 wnl #DVT prophylaxis-SCDs, Lovenox #GI prophylaxis-PPIs #Disposition-Pending placement History Interval history: This is a 60-year-old male with seizure disorder current alcohol and tobacco abuse presents to the hospital on 11/11 after being found unresponsive. On arrival of EMS patient was found to be hypoglycemic and given IV dextrose after which he recovered and refused further care. EMS was called again by family after the patient was found unresponsive and was given Narcan with no change. Patient was noted to have seizure activity and given 7 mg IV Ativan total including 3 from EMS. Patient was loaded with Keppra 2 g and was intubated for airway protection. Patient was found to have metabolic acidosis and hypoglycemia on BMP. Patient was found to be hypothermic and hypertensive in the emergency department. Patient's UDS was positive for barbiturates. Patient was admitted to the hospital service for further work-up with consults to [facility] and neurology. 11/12. Patient remains intubated. On Keppra and phenobarbital. Neurology evaluation appreciated. EEG ordered. May need transfer to tertiary care for continuous EEG pending EEG results. 11/13. Remains intubated and on antiseizure medications. EEG has been performed but results are pending. Neurology on board 11/14. Remains intubated and on antiseizure medications. EEG has been performed but results are pending. Neurology on board 11/15: EEG is consistent with significant encephalopathy and does not rule out t he possibility of epilepsy, patient remains on mechanical ventilation with minimal vent settings. No acute events reported overnight. 11/16: No acute events reported overnight, patient opens eyes spontaneously and withdraws to pain bilateral lower extremities. At the time my examination patient was on CMV 450/18/64/0.30 and has been started on a CPAP trial subsequently. No evidence of generalized seizures noted. Patient [place] 11/17: Patient was extubated today per CCM, no acute events reported overnight. Patient has a right sided gaze during my examination and was on CPAP 10/ at 30% and he opens his eyes spontaneously. He does withdraw bilateral lower extremities to pain. His Keppra was decreased yesterday. ST evaluation pending 11/18: Follow-up EEG reading. Patient currently off sedation. Nursing to place Dobbhoff tube for feeding. Speech therapy to continue swallow evaluation. No new seizure activity. Continue phenobarbital and Keppra. Seizure precautions. Transfer [facility] today. 11/19: Dobbhoff tube with removal difficulty yesterday. 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 CT scan of the chest revealed pulmonary nodule and lesion in the liver suggestive of metastatic disease. GI consultation pending. Patient was electively intubated yesterday for airway protection. Extubation today per pulmonary 11/20: Await speech therapy evaluation. Patient will likely need PEG tube placement. Consult GI for further evaluation. Oncology consultation for likely metastatic disease. 11/21: Await GI consultation. Appreciate oncology evaluation. 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 Check MRI brain to rule out brain metastasis. Poor prognosis. 11/22: GI recommends tissue diagnosis either with ENT involvement and evaluation of epiglottis mass with biopsy vs biopsy of the liver lesion. Follow-up with case management for obtaining consent for possible PEG tube placement 11/23. Brain MRI showed no brain metastasis. Plan for EGD as per GI. Patient will need possible ENT evaluation of mass with biopsy or biopsy of the liver l esion. 11/24. EGD shows no mass in the oropharynx. PEG was placed during EGD and patient has been started on tube feeds. He will need placement to a [facility] facility and has been accepted at some facilities. COVID-19 test is negative. 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 11/25 -11/27. Sodium trending down. Check osmolality, urine electrolytes. Continue salt tablets. 11/28. Sodium is till trending down. Will check cortisol and TSH. 11/29. Sodium is still <130 despite being on salt tablets and NS. Will consult nephrology 11/30. Nephrology on board - ordered tolvaptan today as sodium is still low. Will continue to trend Na. 12/01. Sodium better. Appreciate nephrology recs. Awaiting placement 12/02. His sodium has improved. Awaiting placement. Has no family. Patient is a [place] of the state. He will need ENT evaluation with laryngoscopy at discharge. Hospitalist Physical - Physical exam Narrative exam: VITAL SIGNS: Reviewed. GENERAL: Awake HEAD: No signs of head trauma. EYES: Pupils are equal. Extraocular motions intact. MOUTH: Oropharynx is normal. NECK: No adenopathy, no JVD. CHEST: Chest with diminished breath sounds bilaterally. No wheezes, rales, or rhonchi. CARDIAC: normal S1 and S2, without murmurs, gallops, or rubs. ABDOMEN: Soft, non tender and non distended. No rebound or guarding, and no masses palpated. Bowel Sounds normal. MUSCULOSKELETAL: No edema NEUROLOGIC EXAM: Awake but nonverbal SKIN: No obvious lesions - Constitutional Vitals: Temp Pulse Resp BP Pulse Ox 97.8 F 80 18 132/75 94 12/01/20 23:09 12/01/20 23:09 12/01/20 23:09 12/01/20 23:09 12/01/20 23:09 HEART Score - HEART Score Troponin: Troponin T < 0.010 ng/mL (0.00-0.029) 11/11/20 09:02 Results - Labs CBC & Chem 7: 11/29/20 05:52 12/02/20 04:45 Labs: Laboratory Last Values WBC 9.7 K/mm3 (4.5-11.0) 11/29/20 05:52 RBC 4.48 M/mm3 (3.65-5.03) 11/29/20 05:52 Hgb 12.8 gm/dl (11.8-15.2) 11/29/20 05:52 Hct 37.9 % (35.5-45.6) 11/29/20 05:52 MCV 85 fl (84-94) 11/29/20 05:52 MCH 29 pg (28-32) 11/29/20 05:52 MCHC 34 % (32-34) 11/29/20 05:52 RDW 14.9 % (13.2-15.2) 11/29/20 05:52 Plt Count 407 K/mm3 (140-440) 11/29/20 05:52 Lymph % (Auto) 18.3 % (13.4-35.0) 11/26/20 06:23 Rock % (Auto) 9.8 % (0.0-7.3) H 11/26/20 06:23 Eos % (Auto) 1.1 % (0.0-4.3) 11/26/20 06:23 Baso % (Auto) 0.7 % (0.0-1.8) 11/26/20 06:23 Lymph # (Auto) 1.7 K/mm3 (1.2-5.4) 11/26/20 06:23 Rock # (Auto) 0.9 K/mm3 (0.0-0.8) H 11/26/20 06:23 Eos # (Auto) 0.1 K/mm3 (0.0-0.4) 11/26/20 06:23 Baso # (Auto) 0.1 K/mm3 (0.0-0.1) 11/26/20 06:23 Add Manual Diff Complete 11/29/20 05:52 Total Counted 100 11/29/20 05:52 Seg Neutrophils % 70.1 % (40.0-70.0) H 11/26/20 06:23 Seg Neuts % (Manual) 76.0 % (40.0-70.0) H 11/29/20 05:52 Lymphocytes % (Manual) 10.0 % (13.4-35.0) L 11/29/20 05:52 Reactive Lymphs % (Man) 4.0 % 11/27/20 05:50 Monocytes % (Manual) 10.0 % (0.0-7.3) H 11/29/20 05:52 Eosinophils % (Manual) 3.0 % (0.0-4.3) 11/29/20 05:52 Metamyelocytes % 1.0 % 11/29/20 05:52 Nucleated RBC % Not Reportable 11/29/20 05:52 Seg Neutrophils # 9.5 K/mm3 (1.8-7.7) H 11/26/20 06:23 Seg Neutrophils # Man 7.4 K/mm3 (1.8-7.7) 11/29/20 05:52 Band Neutrophils # 0.0 K/mm3 11/29/20 05:52 Lymphocytes # (Manual) 1.0 K/mm3 (1.2-5.4) L 11/29/20 05:52 Abs React Lymphs (Man) 0.0 K/mm3 11/29/20 05:52 Monocytes # (Manual) 1.0 K/mm3 (0.0-0.8) H 11/29/20 05:52 Eosinophils # (Manual) 0.3 K/mm3 (0.0-0.4) 11/29/20 05:52 Basophils # (Manual) 0.0 K/mm3 (0.0-0.1) 11/29/20 05:52 Metamyelocytes # 0.1 K/mm3 11/29/20 05:52 Myelocytes # 0.0 K/mm3 11/29/20 05:52 Promyelocytes # 0.0 K/mm3 11/29/20 05:52 Blast Cells # 0.0 K/mm3 11/29/20 05:52 WBC Morphology Not Reportable 11/29/20 05:52 Hypersegmented Neuts Not Reportable 11/29/20 05:52 Hyposegmented Neuts Not Reportable 11/29/20 05:52 Hypogranular Neuts Not Reportable 11/29/20 05:52 Smudge Cells Not Reportable 11/29/20 05:52 Toxic Granulation Not Reportable 11/29/20 05:52 Toxic Vacuolation Not Reportable 11/29/20 05:52 Dohle Bodies Not Reportable 11/29/20 05:52 Pelger-Huet Anomaly Not Reportable 11/29/20 05:52 Fercho Rods Not Reportable 11/29/20 05:52 Platelet Estimate Consistent w auto 11/29/20 05:52 Clumped Platelets Not Reportable 11/29/20 05:52 Plt Clumps, EDTA Not Reportable 11/29/20 05:52 Large Platelets Not Reportable 11/29/20 05:52 Giant Platelets Not Reportable 11/29/20 05:52 Platelet Satelliting Not Reportable 11/29/20 05:52 Plt Morphology Comment Not Reportable 11/29/20 05:52 RBC Morphology Not Reportable 11/29/20 05:52 Dimorphic RBCs Not Reportable 11/29/20 05:52 Polychromasia Not Reportable 11/29/20 05:52 Hypochromasia Not Reportable 11/29/20 05:52 Poikilocytosis Not Reportable 11/29/20 05:52 Anisocytosis Few 11/29/20 05:52 Microcytosis Not Reportable 11/29/20 05:52 Macrocytosis Not Reportable 11/29/20 05:52 Spherocytes Not Reportable 11/29/20 05:52 Pappenheimer Bodies Not Reportable 11/29/20 05:52 Sickle Cells Not Reportable 11/29/20 05:52 Target Cells Few 11/29/20 05:52 Tear Drop Cells Not Reportable 11/29/20 05:52 Ovalocytes Not Reportable 11/29/20 05:52 Helmet Cells Not Reportable 11/29/20 05:52 [place] Bodies Not Reportable 11/29/20 05:52 Bel[place] Rings Not Reportable 11/29/20 05:52 Joni Cells Not Reportable 11/29/20 05:52 Bite Cells Not Reportable 11/29/20 05:52 Crenated Cell Not Reportable 11/29/20 05:52 Elliptocytes Not Reportable 11/29/20 05:52 Acanthocytes (Spur) Not Reportable 11/29/20 05:52 Rouleaux Not Reportable 11/29/20 05:52 Hemoglobin C Crystals Not Reportable 11/29/20 05:52 Schistocytes Not Reportable 11/29/20 05:52 Malaria parasites Not Reportable 11/29/20 05:52 Jones Bodies Not Reportable 11/29/20 05:52 Hem Pathologist Commnt No 11/29/20 05:52 PT 11.5 Sec. (12.2-14.9) L 11/11/20 09:02 INR 0.86 (0.87-1.13) L 11/11/20 09:02 APTT 25.5 Sec. (24.2-36.6) 11/11/20 09:02 Thrombin Time 17.0 Sec. (15.1-19.6) 11/11/20 09:02 ABG pH 7.499 (7.320-7.450) H 11/17/20 11:40 POC ABG pCO2 36.3 mmHg (32.0-48.0) 11/17/20 11:40 ABG pCO2 33.9 mm Hg 11/11/20 10:45 POC ABG pO2 140.8 mmHg (83-108) H 11/17/20 11:40 ABG pO2 222.2 mm Hg (80.0-90.0) H 11/11/20 10:45 POC ABG HCO3 27.6 11/17/20 11:40 ABG HCO3 24.9 mmol/L (20.0-26.0) 11/11/20 10:45 ABG O2 Saturation 98.1 (0-100) 11/17/20 11:40 ABG O2 Content 19.4 (0.0-44) 11/11/20 10:45 POC ABG Base Excess 4.4 11/17/20 11:40 ABG Base Excess 1.9 mmol/L (-2.0-3.0) 11/11/20 10:45 ABG Hemoglobin 11.8 (12.0-17.5) L 11/17/20 11:40 ABG Oxyhemoglobin 97.4 (94-98) 11/17/20 11:40 ABG Carboxyhemoglobin 0.6 % (0.0-5.0) 11/11/20 10:45 ABG Methemoglobin 0.3 (0.0-1.5) 11/17/20 11:40 ABG Sodium 135.1 mmol/L (136.0-145.0) L 11/17/20 11:40 ABG Potassium 4.2 mmol/L (3.40-4.50) 11/17/20 11:40 ABG Chloride 102.0 mmol/L (98-107) 11/17/20 11:40 ABG Glucose 110 mg/dL (65-95) H 11/17/20 11:40 Oxyhemoglobin 98.5 % (95.0-99.0) 11/11/20 10:45 Carboxyhemoglobin 0.4 (0.5-1.5) L 11/17/20 11:40 FiO2 21 % 11/11/20 10:45 FiO2 % 30 11/17/20 11:40 Sodium 133 mmol/L (137-145) L 12/02/20 04:45 Potassium 4.7 mmol/L (3.6-5.0) 12/02/20 04:45 Chloride 96.9 mmol/L (98-107) L 12/02/20 04:45 Carbon Dioxide 28 mmol/L (22-30) 12/02/20 04:45 Anion Gap 13 mmol/L 12/02/20 04:45 BUN 22 mg/dL (9-20) H 12/02/20 04:45 Creatinine 0.6 mg/dL (0.8-1.3) L 12/02/20 04:45 Estimated GFR > 60 ml/min 12/02/20 04:45 BUN/Creatinine Ratio 37 % 12/02/20 04:45 Glucose 120 mg/dL (75-100) H 12/02/20 04:45 POC Glucose 121 mg/dL (70-105) H 12/01/20 21:49 Hemoglobin A1c 5.4 % (4-6) 11/12/20 07:26 Osmolality 274 Mosm/kg 11/29/20 13:08 Uric Acid 1.7 mg/dL (3.5-7.6) L 11/29/20 13:08 Calcium 9.2 mg/dL (8.4-10.2) 12/02/20 04:45 Magnesium 2.00 mg/dL (1.7-2.3) 11/11/20 09:02 Total Bilirubin 0.40 mg/dL (0.1-1.2) 11/29/20 05:52 AST 42 units/L (5-40) H 11/29/20 05:52 ALT 30 units/L (7-56) 11/29/20 05:52 Alkaline Phosphatase 156 units/L (35-129) H 11/29/20 05:52 Ammonia 29.0 umol/L (25-60) 11/12/20 08:47 Total Creatine Kinase 169 units/L (55-170) 11/11/20 09:02 CK-MB (CK-2) 6.6 ng/mL (0.0-4.0) H 11/11/20 09:02 CK-MB (CK-2) Rel Index 3.9 (0-4) 11/11/20 09:02 Troponin T < 0.010 ng/mL (0.00-0.029) 11/11/20 09:02 Total Protein 7.8 g/dL (6.3-8.2) 11/29/20 05:52 Albumin 3.2 g/dL (3.9-5) L 11/29/20 05:52 Albumin/Globulin Ratio 0.7 % 11/29/20 05:52 TSH 5.610 mlU/mL (0.270-4.200) H 11/29/20 05:52 Free T4 1.24 ng/dL (0.76-1.46) 11/29/20 10:31 Arterial Blood Glucose 110 mg/dL (65-95) H 11/17/20 11:40 Arterial Blood Ionized Calcium 4.9 mg/dL (4.6-5.3) 11/17/20 11:40 Urine Color Yellow (Yellow) 11/11/20 20: Urine Turbidity Clear (Clear) 11/11/20 20: Urine pH 6.0 (5.0-7.0) 11/11/20 20:27 Ur Specific Robbins 1.045 (1.003-1.030) H 11/11/20 20:27 Urine Protein 100 mg/dl mg/dL (Negative) 11/11/20 20:27 Urine Glucose (UA) Neg mg/dL (Negative) 11/11/20 20: Urine Ketones Neg mg/dL (Negative) 11/11/20 20: Urine Blood Sm (Negative) 11/11/20 20:27 Urine Nitrite Neg (Negative) 11/11/20 20: Urine Bilirubin Neg (Negative) 11/11/20 20: Urine Urobilinogen 4.0 mg/dL (<2.0) 11/11/20 20:27 Ur Leukocyte Esterase Neg (Negative) 11/11/20 20:27 Urine WBC (Auto) 1.0 /HPF (0.0-6.0) 11/11/20 20:27 Urine RBC (Auto) 4.0 /HPF (0.0-6.0) 11/11/20 20:27 U Epithel Cells (Auto) 12.0 /HPF (0-13.0) 11/11/20 20: Urine Bacteria (Auto) 1+ /HPF (Negative) 11/11/20 20: Urine Mucus Few /HPF 11/11/20 20:27 Urine Osmolality 610 Mosm/kg 11/29/20 11:09 Urine Opiates Screen Negative 11/11/20 20:27 Urine Methadone Screen Negative 11/11/20 20:27 Ur Barbiturates Screen Positive 11/11/20 20:27 Ur Phencyclidine Scrn Negative 11/11/20 20:27 Ur Amphetamines Screen Negative 11/11/20 20:27 Phenobarbital 4.3 ug/mL (15.0-40.0) L 11/12/20 08:47 U Benzodiazepines Scrn Negative 11/11/20 20:27 Urine Cocaine Screen Negative 11/11/20 20:27 U Marijuana (THC) Screen Negative 11/11/20 20:27 Drugs of Abuse Note Disclamer 11/11/20 20:27 Plasma/Serum Alcohol < 0.01 % (0-0.07) 11/11/20 09:02 Coronavirus (PCR) Negative (Negative) 11/23/20 Unknown [place]/IV: Voiding Method Condom Catheter Active Medications - Current Medications Current Medications: Generic Name Dose Route Start Last Admin Trade Name Freq PRN Reason Stop Dose Admin Acetaminophen 650 mg 11/11/20 22:58 Acetaminophen 325 Mg Tab PO Q4H PRN Pain MILD(1-3)/Fever >100.5/BAR Albuterol 2.5 mg 11/11/20 23:18 Albuterol 2.5 Mg/3 Ml Nebu IH Q3HRT PRN Wheezing Lipase/Protease/Amylase 1 each 11/12/20 12:00 Lipase 10,500/Protease 25,000/Amylase 43,750 (Units) Dr Rangel FEEDTUBE PRN PRN For Clogged Feeding Tube Dextrose 50 ml 11/11/20 22:11 11/17/20 23:29 Dextrose 50% In Water (25gm) 50 Ml Syringe IV 10 ml ONCE PRN Administration Hypoglycemia Protocol Enoxaparin Sodium 40 mg 11/12/20 22:00 12/01/20 23:37 Enoxaparin 40 Mg/0.4 Ml Inj SUB-Q 40 mg QDAY@2200 KIRK Administration Protocol Folic Acid 1 mg 11/16/20 10:00 12/01/20 09:34 Folic Acid 1 Mg Tab PO 1 mg DAILY KIRK Administration Hydralazine HCl 10 mg 11/12/20 10:30 11/14/20 07:30 Hydralazine 20 Mg/1 Ml Inj IV 10 mg Q4H PRN Administration Hypertension Hydrophilic Ointment 1 applic 11/11/20 09:14 Lip Therapy Vaseline TP Q2HR PRN Dry Lips Insulin Human Regular 0 units 11/12/20 18:00 12/02/20 06:34 Insulin Regular, Human 100 Units/1 Ml SUB-Q Not Given Q6H KIRK Protocol Lansoprazole 30 mg 11/24/20 10:00 12/01/20 09:33 Lansoprazole 30 Mg Solutab FEEDTUBE 30 mg QDAY KIRK Administration Levetiracetam 1,000 mg 11/24/20 10:00 12/01/20 23:38 Levetiracetam 500 Mg/5 Ml Oral Liqd FEEDTUBE 1,000 mg BID KIRK Administration Metoclopramide HCl 10 mg 11/11/20 22:58 Metoclopramide 10 Mg/2 Ml Inj IV Q6H PRN Nausea And Vomiting Multi-Ingred Cream/Lotion/Oil/Oint 1 applic 11/11/20 09:14 Mineral Oil/Petrolatum, White Ophth Oint 3.5 Gm OU Q4HR PRN Dry Eye(s) Multivitamins 1 each 11/13/20 00:00 12/02/20 01:15 Multivitamins ,Therapeutic Tab PO 1 each Q24H KIRK Administration Naloxone HCl 2 mg 11/11/20 08:33 Naloxone 0.4 Mg/1 Ml Inj IV Q2MIN PRN Res Rate </= 8 or 02 SAT < 92% Ondansetron HCl 4 mg 11/11/20 22:58 Ondansetron 4 Mg/2 Ml Inj IV Q3H PRN Nausea And Vomiting Phenobarbital 15 mg 11/11/20 23:45 12/01/20 23:37 Phenobarbital 15 Mg Tab PO 15 mg BID KIRK Administration Simple Syrup 15 ml 11/12/20 12:00 Simple Syrup 15 Ml FEEDTUBE PRN PRN Hypoglycemia Simple Syrup 30 ml 11/12/20 12:00 Simple Syrup 15 Ml FEEDTUBE PRN PRN Hypoglycemia Sodium Bicarbonate 325 mg 11/12/20 12:00 Sodium Bicarbonate 325 Mg Tab FEEDTUBE PRN PRN For Clogged Feeding Tube Sodium Chloride 10 ml 11/11/20 23:00 12/01/20 23:38 Sodium Chloride 0.9% 10 Ml Flush Syringe IV 10 ml BID KIRK Administration Sodium Chloride 10 ml 11/11/20 22:58 Sodium Chloride 0.9% 10 Ml Flush Syringe IV PRN PRN LINE FLUSH Sodium Chloride 2 gm 11/30/20 22:23 12/01/20 23:38 Sodium Chloride 1 Gm Tab PO 2 gm TID KIRK Administration Thiamine HCl 100 mg 11/16/20 10:00 12/01/20 09:34 Thiamine 100 Mg Tab PO 100 mg QDAY KIRK Administration Nutrition/Malnutrition Assess - Dietary Evaluation Nutrition/Malnutrition Findings: Nutrition Notes Start: 11/12/20 08:26 Freq: Status: Active Protocol: Document 11/30/20 09:41 (Rec: 11/30/20 09:51 [email or web address]) Nutrition Notes Initial or Follow up Reassessment Current Diagnosis Respiratory Failure,Stroke Other Pertinent Diagnosis Seizures, Neurogenic Dysphagia Current Diet Jevity 1.2 at 60 ml/hr Labs/Tests Na 125 Pertinent Medications NaCl 2 grams Height 5 ft 9 in Weight 60.8 kg [place] Body Weight (kg) 72.72 BMI 19.8 Weight change and time frame wt flucuations Weight Status Underweight Subjective/Other Information FU for TF tolerance. Pt with chronic hyponatermia. Will adjust water flush, RN informed. Per chart, pt tolerating TF at goal. Percent of energy/protein needs met: 100%/100% Burn Absent Trauma Absent GI Symptoms None Difficulty In Swallowing Current % PO Negligible Minimum of two criteria No Interpretation of Weight Loss (severe) >5% in 1 month #2 Nutrition Diagnosis Inadequate energy intake Diagnosis Progress(for reassessment Continues documentation) #1 Nutrition Diagnosis Inadequate oral intake Diagnosis Progress(for reassessment Continues documentation) Is patient on ventilator? No Is Patient Ambulatory and/or Out of Bed No REE-([facility]-confined to bed) 2583.184 Calculation Used for Recommendations [facility] Additional Notes Protein: 70-84 g (1.0-1.2 g/kg ABW) Fluid: 1 ml/kcal Nutrition Intervention Change Diet Order: TF Nutrition Support: Jevity 1.2 at 60 ml/hr Flush 50 mL q4h Kcal 1,728 Protein (gm) 80 Fluid (mL) 1,162 Goal #1 Meet at least 75% of estimated energy and protein needs via TF Goal #2 weight stability/increase Anticipated Discharge Needs: TF Jevity 1.2 at 60 ml/hr Follow-Up By: 12/02/20 Additional Comments FU for TF tolerance and wt changes
[2020-12-02] MEDS: LANSOPRAZOLE 30 MG SOLUTAB FEEDTUBE SCH (10:20)
[2020-12-02] MEDS: levETIRAcetam 500 MG/5 ML ORAL LIQD FEEDTUBE SCH ×2 (10:20→22:31)
[2020-12-02] MEDS: FOLIC ACID 1 MG TAB PO SCH (10:20)
[2020-12-02] MEDS: THIAMINE 100 MG TAB PO SCH (10:20)
[2020-12-02] MEDS: SODIUM CHLORIDE 1 GM TAB PO SCH ×3 (10:24→20:40)
[2020-12-02] MEDS: PHENobarbital 15 MG TAB PO SCH ×2 (12:05→22:31)
--- NOTE | 2020-12-02 14:09 | Progress Note ---
Assessment and Plan 1. 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 Cortisol level pending. Continue Salt tablets. One dose of Tolvaptan 11/30. Sodium level is better. 2. Acute hypoxic respiratory failure: Now extubated. NC oxygen as needed. 3. Acute metabolic encephalopathy: MRI brain showed chronic changes. Monitor. 4. Seizure disorder: Continue antiseizure medications. 5 SIRS: COVID-19 test negative. Monitor. 6. 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 7. Dysphagia: S/p PEG placement. Subjective: Patient was seen and examined at the bedside. Objective: General appearance: well-developed, appears stated age, no distress noted HEENT: ATNC, CHE Neck: trachea midline Respiratory: ctab Heart: regular, S1S2, no murmur Gastrointestinal: soft, normoactive bowel sounds, not tender, PEG tube noted Integumentary: no rash, warm and dry Ext: no edema Neurologic: opens eyes, aphasic, not following any command Subjective Date of service: 12/02/20 Principal diagnosis: Neurogenic Dysphagia Objective - Lab 11/29/20 05:52 12/02/20 04:45 Most recent lab results ABG pH 7.499 (7.320-7.450) H 11/17/20 11:40 ABG pCO2 33.9 mm Hg 11/11/20 10:45 ABG pO2 222.2 mm Hg (80.0-90.0) H 11/11/20 10:45 ABG HCO3 24.9 mmol/L (20.0-26.0) 11/11/20 10:45 ABG O2 Saturation 98.1 (0-100) 11/17/20 11:40 Calcium 9.2 mg/dL (8.4-10.2) 12/02/20 04:45 Magnesium 2.00 mg/dL (1.7-2.3) 11/11/20 09:02 Medications & Allergies - Medications Allergies/Adverse Reactions: Allergies No Known Allergies Allergy (Verified 02/24/18 09:21) Home Medications: Home Medications Medication Instructions Recorded Confirmed Last Taken Type PHENobarbitaL [PHENobarbital] 15 mg PO BID 30 Days #60 tablet 05/30/20 11/12/20 Unknown Rx levETIRAcetam [Keppra TAB] 500 mg PO BID #60 tablet 05/30/20 11/23/20 Unknown Rx Vitamin B-1 100 mg PO DAILY 08/12/20 11/12/20 Unknown History levETIRAcetam [Keppra TAB] 1,000 mg PO BID 30 Days #60 tab 08/12/20 11/23/20 Unknown Rx levETIRAcetam [Keppra TAB] 1,000 mg PO BID 90 Days #180 tab 10/01/20 11/23/20 Unknown Rx haloperidoL [Haloperidol] 5 mg PO ONCE 11/12/20 11/12/20 Unknown History Active Medications: Generic Name Dose Route Start Last Admin Trade Name Freq PRN Reason Stop Dose Admin Acetaminophen 650 mg 11/11/20 22:58 Acetaminophen 325 Mg Tab PO Q4H PRN Pain MILD(1-3)/Fever >100.5/BAR Albuterol 2.5 mg 11/11/20 23:18 Albuterol 2.5 Mg/3 Ml Nebu IH Q3HRT PRN Wheezing Lipase/Protease/Amylase 1 each 11/12/20 12:00 Lipase 10,500/Protease 25,000/Amylase 43,750 (Units) Dr Rangel FEEDTUBE PRN PRN For Clogged Feeding Tube Dextrose 50 ml 11/11/20 22:11 11/17/20 23:29 Dextrose 50% In Water (25gm) 50 Ml Syringe IV 10 ml ONCE PRN Administration Hypoglycemia Protocol Enoxaparin Sodium 40 mg 11/12/20 22:00 12/01/20 23:37 Enoxaparin 40 Mg/0.4 Ml Inj SUB-Q 40 mg QDAY@2200 KIRK Administration Protocol Folic Acid 1 mg 11/16/20 10:00 12/02/20 10:20 Folic Acid 1 Mg Tab PO 1 mg DAILY KIRK Administration Hydralazine HCl 10 mg 11/12/20 10:30 11/14/20 07:30 Hydralazine 20 Mg/1 Ml Inj IV 10 mg Q4H PRN Administration Hypertension Hydrophilic Ointment 1 applic 11/11/20 09:14 Lip Therapy Vaseline TP Q2HR PRN Dry Lips Insulin Human Regular 0 units 11/12/20 18:00 12/02/20 13:03 Insulin Regular, Human 100 Units/1 Ml SUB-Q Not Given Q6H [facility] Protocol Lansoprazole 30 mg 11/24/20 10:00 12/02/20 10:20 Lansoprazole 30 Mg Solutab FEEDTUBE 30 mg QDAY KIRK Administration Levetiracetam 1,000 mg 11/24/20 10:00 12/02/20 10:20 Levetiracetam 500 Mg/5 Ml Oral Liqd FEEDTUBE 1,000 mg BID KIRK Administration Metoclopramide HCl 10 mg 11/11/20 22:58 Metoclopramide 10 Mg/2 Ml Inj IV Q6H PRN Nausea And Vomiting Multi-Ingred Cream/Lotion/Oil/Oint 1 applic 11/11/20 09:14 Mineral Oil/Petrolatum, White Ophth Oint 3.5 Gm OU Q4HR PRN Dry Eye(s) Multivitamins 1 each 11/13/20 00:00 12/02/20 01:15 Multivitamins ,Therapeutic Tab PO 1 each Q24H KIRK Administration Naloxone HCl 2 mg 11/11/20 08:33 Naloxone 0.4 Mg/1 Ml Inj IV Q2MIN PRN Res Rate </= 8 or 02 SAT < 92% Ondansetron HCl 4 mg 11/11/20 22:58 Ondansetron 4 Mg/2 Ml Inj IV Q3H PRN Nausea And Vomiting Phenobarbital 15 mg 11/11/20 23:45 12/02/20 12:05 Phenobarbital 15 Mg Tab PO 15 mg BID KIRK Administration Simple Syrup 15 ml 11/12/20 12:00 Simple Syrup 15 Ml FEEDTUBE PRN PRN Hypoglycemia Simple Syrup 30 ml 11/12/20 12:00 Simple Syrup 15 Ml FEEDTUBE PRN PRN Hypoglycemia Sodium Bicarbonate 325 mg 11/12/20 12:00 Sodium Bicarbonate 325 Mg Tab FEEDTUBE PRN PRN For Clogged Feeding Tube Sodium Chloride 10 ml 11/11/20 23:00 12/02/20 10:21 Sodium Chloride 0.9% 10 Ml Flush Syringe IV 10 ml BID KIRK Administration Sodium Chloride 10 ml 11/11/20 22:58 Sodium Chloride 0.9% 10 Ml Flush Syringe IV PRN PRN LINE FLUSH Sodium Chloride 2 gm 11/30/20 22:23 12/02/20 10:24 Sodium Chloride 1 Gm Tab PO 2 gm TID KIRK Administration Thiamine HCl 100 mg 11/16/20 10:00 12/02/20 10:20 Thiamine 100 Mg Tab PO 100 mg QDAY KIRK Administration
[2020-12-02] MEDS: ENOXAPARIN 40 MG/0.4 ML INJ SUB-Q SCH (22:31)
[2020-12-03] MEDS: INSULIN REGULAR, HUMAN 100 UNITS/1 ML SUB-Q SCH ×4 (00:29→17:59)
[2020-12-03] MEDS: MULTIVITAMINS ,THERAPEUTIC TAB PO SCH (00:29)
[2020-12-03 06:19] LABS: Blood Urea Nitrogen 22 mg/dL (9-20); Hemolysis Index 0
[2020-12-03 06:20] LABS: BUN/Creatinine Ratio 37
--- NOTE | 2020-12-03 08:22 | Progress Note ---
Assessment and Plan Assessment and plan: COVID-19 test negative x 2 [ 11/12/2020, 11/23/2020] --Acute hypoxic respiratory failure requiring intubation Now extubated, Improved. Now on 2-1/2 L of oxygen Home O2 evaluation at discharge --Acute toxic metabolic encephalopathy Multifactorial, due to seizures, SIRS, hyponatremia, abnormal thyroid functions Unknown baseline, treat the underlying cause Has no ongoing infective process CT head ,MRI brain is negative Continue supportive care --History of seizure disorder; Seizure precautions ,continue antiepileptic medications No new episodes of seizures, cannot drive CT head and brain MRI showed no etiology for seizure --SIRS Etiology unknown-urinalysis negative, chest x-ray also negative COVID-19 test negative, supportive care antibiotics DC'd --Needs ENT as outpatient for evaluation of upper airway. He has no carcinoma as written in previous notes Needs further evaluation of liver lesion with MRI as outpatient Also needs to follow up with pulmonary in the office --Dysphagia; s/p PEG placement, continue PEG care PEG feeds per protocol, aspiration precautions --Hyponatremia; Sodium today 129, continue replacement therapy Closely monitor electrolytes --Abnormal low TSH; Free T4 wnl --DVT prophylaxis-SCDs, Lovenox --GI prophylaxis-PPIs --Full CODE STATUS; --Disposition-Pending placement Brief history This is a 60-year-old male with seizure disorder current alcohol and tobacco abuse presents to the hospital on 11/11 after being found unresponsive. On arrival of EMS patient was found to be hypoglycemic and given IV dextrose after which he recovered and refused further care. EMS was called again by family after the patient was found unresponsive and was given Narcan with no change. Patient was noted to have seizure activity and given 7 mg IV Ativan total including 3 from EMS. Patient was loaded with Keppra 2 g and was intubated for airway protection. Patient was found to have metabolic acidosis and hypoglycemia on BMP. Patient was found to be hypothermic and hypertensive in the emergency department. Patient's UDS was positive for barbiturates. Patient was admitted to the hospital service for further work-up with consults to [facility] and neurology. 11/12. Patient remains intubated. On Keppra and phenobarbital. Neurology eval uation appreciated. EEG ordered. May need transfer to tertiary care for continuous EEG pending EEG results. 11/13. Remains intubated and on antiseizure medications. EEG has been performed but results are pending. Neurology on board 11/14. Remains intubated and on antiseizure medications. EEG has been performed but results are pending. Neurology on board 11/15: EEG is consistent with significant encephalopathy and does not rule out the possibility of epilepsy, patient remains on mechanical ventilation with minimal vent settings. No acute events reported overnight. 11/16: No acute events reported overnight, patient opens eyes spontaneously and withdraws to pain bilateral lower extremities. At the time my examination patient was on CMV 450/18/64/0.30 and has been started on a CPAP trial subsequently. No evidence of generalized seizures noted. Patient is a lui of the state 11/17: Patient was extubated today per [facility], no acute events reported overnight. Patient has a right sided gaze during my examination and was on CPAP / at 30% and he opens his eyes spontaneously. He does withdraw bilateral lower extremities to pain. His Keppra was decreased yesterday. ST evaluation pending 11/18: Follow-up EEG reading. Patient currently off sedation. Nursing to place Dobbhoff tube for feeding. Speech therapy to continue swallow evaluation. No new seizure activity. Continue phenobarbital and Keppra. Seizure precautions. Transfer to [facility] today. 11/19: Dobbhoff tube with removal difficulty yesterday. 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 CT scan of the chest revealed pulmonary nodule and lesion in the liver suggestive of metastatic disease. GI consultation pending. Patient was electively intubated yesterday for airway protection. Extubation today per pulmonary 11/20: Await speech therapy evaluation. Patient will likely need PEG tube placement. Consult GI for further evaluation. Oncology consultation for likely metastatic disease. 11/21: Await GI consultation. Appreciate oncology evaluation. 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 Check MRI brain to rule out brain metastasis. Poor prognosis. 11/22: GI recommends tissue diagnosis either with ENT involvement and evaluation of epiglottis mass with biopsy vs biopsy of the liver lesion. Follow-up with case management for obtaining consent for possible PEG tube placement 11/23. Brain MRI showed no brain metastasis. Plan for EGD as per GI. Patient will need possible ENT evaluation of mass with biopsy or biopsy of the liver lesion. 11/24. EGD shows no mass in the oropharynx. PEG was placed during EGD and patient has been started on tube feeds. [facility] and has been accepted at some facilities. COVID-19 test is negative. supplemental manager trying to arrange for further paperwork prior to discharge. 11/25 -11/27. Sodium trending down. Check osmolality, urine electrolytes. Continue salt tablets. 11/28. Sodium is till trending down. Will check cortisol and TSH. 11/29. Sodium is still <130 despite being on salt tablets and NS. Will consult nephrology 11/30. Nephrology on board - ordered tolvaptan today as sodium is still low. Will continue to trend Na. 12/01. Sodium better. Appreciate nephrology recs. Awaiting placement 12/02. His sodium has improved. Awaiting placement. Has no family. Patient is a lui of the [facility]. He will need ENT evaluation with laryngoscopy at discharge. 12/03; potassium sodium continues to be low, continue current management nephrology following, awaiting placement History Interval history: I have seen and examined the patient at the bedside Patient's chart and medications reviewed Feels slightly better, no new complaints Vital signs noted Hospitalist Physical - Constitutional Vitals: Temp Pulse Resp BP Pulse Ox 98.3 F 84 16 132/75 95 12/03/20 03:58 12/03/20 03:58 12/03/20 03:58 12/03/20 03:58 12/03/20 03:58 General appearance: Present: no acute distress, cachectic, disheveled, other (unresponsive) - EENT Eyes: Present: PERRL, EOM intact - Neck Neck: Present: supple, normal ROM - Respiratory Respiratory effort: normal Respiratory: bilateral: diminished, negative: rales, rhonchi, wheezing - Cardiovascular Rhythm: regular Heart Sounds: Present: S1 & S2 - Extremities Extremities: no ischemia, No edema Extremity abnormal: edema, cyanosis - Abdominal General gastrointestinal: soft, non-tender, non-distended, normal bowel sounds - Integumentary Integumentary: Present: clear, warm - Psychiatric Psychiatric: appropriate mood/affect, cooperative - Neurologic Neurologic: moves all extremities HEART Score - HEART Score Troponin: Troponin T < 0.010 ng/mL (0.00-0.029) 11/11/20 09:02 Results - Labs CBC & Chem 7: 11/29/20 05:52 12/03/20 04:39 Labs: Laboratory Last Values WBC 9.7 K/mm3 (4.5-11.0) 11/29/20 05:52 RBC 4.48 M/mm3 (3.65-5.03) 11/29/20 05:52 Hgb 12.8 gm/dl (11.8-15.2) 11/29/20 05:52 Hct 37.9 % (35.5-45.6) 11/29/20 05:52 MCV 85 fl (84-94) 11/29/20 05:52 MCH 29 pg (28-32) 11/29/20 05:52 MCHC 34 % (32-34) 11/29/20 05:52 RDW 14.9 % (13.2-15.2) 11/29/20 05:52 Plt Count 407 K/mm3 (140-440) 11/29/20 05:52 Lymph % (Auto) 18.3 % (13.4-35.0) 11/26/20 06:23 [place] % (Auto) 9.8 % (0.0-7.3) H 11/26/20 06:23 Eos % (Auto) 1.1 % (0.0-4.3) 11/26/20 06:23 Baso % (Auto) 0.7 % (0.0-1.8) 11/26/20 06:23 Lymph # (Auto) 1.7 K/mm3 (1.2-5.4) 11/26/20 06:23 [place] # (Auto) 0.9 K/mm3 (0.0-0.8) H 11/26/20 06:23 Eos # (Auto) 0.1 K/mm3 (0.0-0.4) 11/26/20 06:23 Baso # (Auto) 0.1 K/mm3 (0.0-0.1) 11/26/20 06:23 Add Manual Diff Complete 11/29/20 05:52 Total Counted 100 11/29/20 05:52 Seg Neutrophils % 70.1 % (40.0-70.0) H 11/26/20 06:23 Seg Neuts % (Manual) 76.0 % (40.0-70.0) H 11/29/20 05:52 Lymphocytes % (Manual) 10.0 % (13.4-35.0) L 11/29/20 05:52 Reactive Lymphs % (Man) 4.0 % 11/27/20 05:50 Monocytes % (Manual) 10.0 % (0.0-7.3) H 11/29/20 05:52 Eosinophils % (Manual) 3.0 % (0.0-4.3) 11/29/20 05:52 Metamyelocytes % 1.0 % 11/29/20 05:52 Nucleated RBC % Not Reportable 11/29/20 05:52 Seg Neutrophils # 9.5 K/mm3 (1.8-7.7) H 11/26/20 06:23 Seg Neutrophils # Man 7.4 K/mm3 (1.8-7.7) 11/29/20 05:52 Band Neutrophils # 0.0 K/mm3 11/29/20 05:52 Lymphocytes # (Manual) 1.0 K/mm3 (1.2-5.4) L 11/29/20 05:52 Abs React Lymphs (Man) 0.0 K/mm3 11/29/20 05:52 Monocytes # (Manual) 1.0 K/mm3 (0.0-0.8) H 11/29/20 05:52 Eosinophils # (Manual) 0.3 K/mm3 (0.0-0.4) 11/29/20 05:52 Basophils # (Manual) 0.0 K/mm3 (0.0-0.1) 11/29/20 05:52 Metamyelocytes # 0.1 K/mm3 11/29/20 05:52 Myelocytes # 0.0 K/mm3 11/29/20 05:52 Promyelocytes # 0.0 K/mm3 11/29/20 05:52 Blast Cells # 0.0 K/mm3 11/29/20 05:52 WBC Morphology Not Reportable 11/29/20 05:52 Hypersegmented Neuts Not Reportable 11/29/20 05:52 Hyposegmented Neuts Not Reportable 11/29/20 05:52 Hypogranular Neuts Not Reportable 11/29/20 05:52 Smudge Cells Not Reportable 11/29/20 05:52 Toxic Granulation Not Reportable 11/29/20 05:52 Toxic Vacuolation Not Reportable 11/29/20 05:52 Dohle Bodies Not Reportable 11/29/20 05:52 Pelger-Huet Anomaly Not Reportable 11/29/20 05:52 Fercho Rods Not Reportable 11/29/20 05:52 Platelet Estimate Consistent w auto 11/29/20 05:52 Clumped Platelets Not Reportable 11/29/20 05:52 Plt Clumps, EDTA Not Reportable 11/29/20 05:52 Large Platelets Not Reportable 11/29/20 05:52 Giant Platelets Not Reportable 11/29/20 05:52 Platelet Satelliting Not Reportable 11/29/20 05:52 Plt Morphology Comment Not Reportable 11/29/20 05:52 RBC Morphology Not Reportable 11/29/20 05:52 Dimorphic RBCs Not Reportable 11/29/20 05:52 Polychromasia Not Reportable 11/29/20 05:52 Hypochromasia Not Reportable 11/29/20 05:52 Poikilocytosis Not Reportable 11/29/20 05:52 Anisocytosis Few 11/29/20 05:52 Microcytosis Not Reportable 11/29/20 05:52 Macrocytosis Not Reportable 11/29/20 05:52 Spherocytes Not Reportable 11/29/20 05:52 Pappenheimer Bodies Not Reportable 11/29/20 05:52 Sickle Cells Not Reportable 11/29/20 05:52 Target Cells Few 11/29/20 05:52 Tear Drop Cells Not Reportable 11/29/20 05:52 Ovalocytes Not Reportable 11/29/20 05:52 Helmet Cells Not Reportable 11/29/20 05:52 [place] Bodies Not Reportable 11/29/20 05:52 [place] Rings Not Reportable 11/29/20 05:52 Joni Cells Not Reportable 11/29/20 05:52 Bite Cells Not Reportable 11/29/20 05:52 Crenated Cell Not Reportable 11/29/20 05:52 Elliptocytes Not Reportable 11/29/20 05:52 Acanthocytes (Spur) Not Reportable 11/29/20 05:52 Rouleaux Not Reportable 11/29/20 05:52 Hemoglobin C Crystals Not Reportable 11/29/20 05:52 Schistocytes Not Reportable 11/29/20 05:52 Malaria parasites Not Reportable 11/29/20 05:52 Jones Bodies Not Reportable 11/29/20 05:52 Hem Pathologist Commnt No 11/29/20 05:52 PT 11.5 Sec. (12.2-14.9) L 11/11/20 09:02 INR 0.86 (0.87-1.13) L 11/11/20 09:02 APTT 25.5 Sec. (24.2-36.6) 11/11/20 09:02 Thrombin Time 17.0 Sec. (15.1-19.6) 11/11/20 09:02 ABG pH 7.499 (7.320-7.450) H 11/17/20 11:40 POC ABG pCO2 36.3 mmHg (32.0-48.0) 11/17/20 11:40 ABG pCO2 33.9 mm Hg 11/11/20 10:45 POC ABG pO2 140.8 mmHg (83-108) H 11/17/20 11:40 ABG pO2 222.2 mm Hg (80.0-90.0) H 11/11/20 10:45 POC ABG HCO3 27.6 11/17/20 11:40 ABG HCO3 24.9 mmol/L (20.0-26.0) 11/11/20 10:45 ABG O2 Saturation 98.1 (0-100) 11/17/20 11:40 ABG O2 Content 19.4 (0.0-44) 11/11/20 10:45 POC ABG Base Excess 4.4 11/17/20 11:40 ABG Base Excess 1.9 mmol/L (-2.0-3.0) 11/11/20 10:45 ABG Hemoglobin 11.8 (12.0-17.5) L 11/17/20 11:40 ABG Oxyhemoglobin 97.4 (94-98) 11/17/20 11:40 ABG Carboxyhemoglobin 0.6 % (0.0-5.0) 11/11/20 10:45 ABG Methemoglobin 0.3 (0.0-1.5) 11/17/20 11:40 ABG Sodium 135.1 mmol/L (136.0-145.0) L 11/17/20 11:40 ABG Potassium 4.2 mmol/L (3.40-4.50) 11/17/20 11:40 ABG Chloride 102.0 mmol/L (98-107) 11/17/20 11:40 ABG Glucose 110 mg/dL (65-95) H 11/17/20 11:40 Oxyhemoglobin 98.5 % (95.0-99.0) 11/11/20 10:45 Carboxyhemoglobin 0.4 (0.5-1.5) L 11/17/20 11:40 FiO2 21 % 11/11/20 10:45 FiO2 % 30 11/17/20 11:40 Sodium 129 mmol/L (137-145) L 12/03/20 04:39 Potassium 4.4 mmol/L (3.6-5.0) 12/03/20 04:39 Chloride 93.4 mmol/L (98-107) L 12/03/20 04:39 Carbon Dioxide 27 mmol/L (22-30) 12/03/20 04:39 Anion Gap 13 mmol/L 12/03/20 04:39 BUN 22 mg/dL (9-20) H 12/03/20 04:39 Creatinine 0.6 mg/dL (0.8-1.3) L 12/03/20 04:39 Estimated GFR > 60 ml/min 12/03/20 04:39 BUN/Creatinine Ratio 37 % 12/03/20 04:39 Glucose 119 mg/dL (75-100) H 12/03/20 04:39 POC Glucose 125 mg/dL (70-105) H 12/03/20 06:10 Hemoglobin A1c 5.4 % (4-6) 11/12/20 07:26 Osmolality 274 Mosm/kg 11/29/20 13:08 Uric Acid 1.7 mg/dL (3.5-7.6) L 11/29/20 13:08 Calcium 9.0 mg/dL (8.4-10.2) 12/03/20 04:39 Magnesium 2.00 mg/dL (1.7-2.3) 11/11/20 09:02 Total Bilirubin 0.40 mg/dL (0.1-1.2) 11/29/20 05:52 AST 42 units/L (5-40) H 11/29/20 05:52 ALT 30 units/L (7-56) 11/29/20 05:52 Alkaline Phosphatase 156 units/L (35-129) H 11/29/20 05:52 Ammonia 29.0 umol/L (25-60) 11/12/20 08:47 Total Creatine Kinase 169 units/L (55-170) 11/11/20 09:02 CK-MB (CK-2) 6.6 ng/mL (0.0-4.0) H 11/11/20 09:02 CK-MB (CK-2) Rel Index 3.9 (0-4) 11/11/20 09:02 Troponin T < 0.010 ng/mL (0.00-0.029) 11/11/20 09:02 Total Protein 7.8 g/dL (6.3-8.2) 11/29/20 05:52 Albumin 3.2 g/dL (3.9-5) L 11/29/20 05:52 Albumin/Globulin Ratio 0.7 % 11/29/20 05:52 TSH 5.610 mlU/mL (0.270-4.200) H 11/29/20 05:52 Free T4 1.24 ng/dL (0.76-1.46) 11/29/20 10:31 Total Cortisol 25.5 mcg/dL () 11/29/20 05:52 Arterial Blood Glucose 110 mg/dL (65-95) H 11/17/20 11:40 Arterial Blood Ionized Calcium 4.9 mg/dL (4.6-5.3) 11/17/20 11:40 Urine Color Yellow (Yellow) 11/11/20 20:27 Urine Turbidity Clear (Clear) 11/11/20 20:27 Urine pH 6.0 (5.0-7.0) 11/11/20 20:27 Ur Specific [place] 1.045 (1.003-1.030) H 11/11/20 20:27 Urine Protein 100 mg/dl mg/dL (Negative) 11/11/20 20:27 Urine Glucose (UA) Neg mg/dL (Negative) 11/11/20 20:27 Urine Ketones Neg mg/dL (Negative) 11/11/20 20:27 Urine Blood Sm (Negative) 11/11/20 20:27 Urine Nitrite Neg (Negative) 11/11/20 20:27 Urine Bilirubin Neg (Negative) 11/11/20 20:27 Urine Urobilinogen 4.0 mg/dL (<2.0) 11/11/20 20:27 Ur Leukocyte Esterase Neg (Negative) 11/11/20 20:27 Urine WBC (Auto) 1.0 /HPF (0.0-6.0) 11/11/20 20:27 Urine RBC (Auto) 4.0 /HPF (0.0-6.0) 11/11/20 20:27 U Epithel Cells (Auto) 12.0 /HPF (0-13.0) 11/11/20 20:27 Urine Bacteria (Auto) 1+ /HPF (Negative) 11/11/20 20:27 Urine Mucus Few /HPF 11/11/20 20:27 Urine Osmolality 610 Mosm/kg 11/29/20 11:09 Urine Opiates Screen Negative 11/11/20 20:27 Urine Methadone Screen Negative 11/11/20 20:27 Ur Barbiturates Screen Positive 11/11/20 20:27 Ur Phencyclidine Scrn Negative 11/11/20 20:27 Ur Amphetamines Screen Negative 11/11/20 20:27 Phenobarbital 4.3 ug/mL (15.0-40.0) L 11/12/20 08:47 U Benzodiazepines Scrn Negative 11/11/20 20:27 Urine Cocaine Screen Negative 11/11/20 20:27 U Marijuana (THC) Screen Negative 11/11/20 20:27 Drugs of Abuse Note Disclamer 11/11/20 20:27 Plasma/Serum Alcohol < 0.01 % (0-0.07) 11/11/20 09:02 Coronavirus (PCR) Negative (Negative) 11/23/20 Unknown [place]/IV: Voiding Method Incontinent Active Medications - Current Medications Current Medications: Generic Name Dose Route Start Last Admin Trade Name Freq PRN Reason Stop Dose Admin Acetaminophen 650 mg 11/11/20 22:58 Acetaminophen 325 Mg Tab PO Q4H PRN Pain MILD(1-3)/Fever >100.5/BAR Albuterol 2.5 mg 11/11/20 23:18 Albuterol 2.5 Mg/3 Ml Nebu IH Q3HRT PRN Wheezing Lipase/Protease/Amylase 1 each 11/12/20 12:00 Lipase 10,500/Protease 25,000/Amylase 43,750 (Units) Dr Rangel FEEDTUBE PRN PRN For Clogged Feeding Tube Dextrose 50 ml 11/11/20 22:11 11/17/20 23:29 Dextrose 50% In Water (25gm) 50 Ml Syringe IV 10 ml ONCE PRN Administration Hypoglycemia Protocol Enoxaparin Sodium 40 mg 11/12/20 22:00 12/02/20 22:31 Enoxaparin 40 Mg/0.4 Ml Inj SUB-Q 40 mg QDAY@2200 KIRK Administration Protocol Folic Acid 1 mg 11/16/20 10:00 12/02/20 10:20 Folic Acid 1 Mg Tab PO 1 mg DAILY KIRK Administration Hydralazine HCl 10 mg 11/12/20 10:30 11/14/20 07:30 Hydralazine 20 Mg/1 Ml Inj IV 10 mg Q4H PRN Administration Hypertension Hydrophilic Ointment 1 applic 11/11/20 09:14 Lip Therapy Vaseline TP Q2HR PRN Dry Lips Insulin Human Regular 0 units 11/12/20 18:00 12/03/20 06:20 Insulin Regular, Human 100 Units/1 Ml SUB-Q Not Given Q6H KIRK Protocol Lansoprazole 30 mg 11/24/20 10:00 12/02/20 10:20 Lansoprazole 30 Mg Solutab FEEDTUBE 30 mg QDAY KIRK Administration Levetiracetam 1,000 mg 11/24/20 10:00 12/02/20 22:31 Levetiracetam 500 Mg/5 Ml Oral Liqd FEEDTUBE 1,000 mg BID KIRK Administration Metoclopramide HCl 10 mg 11/11/20 22:58 Metoclopramide 10 Mg/2 Ml Inj IV Q6H PRN Nausea And Vomiting Multi-Ingred Cream/Lotion/Oil/Oint 1 applic 11/11/20 09:14 Mineral Oil/Petrolatum, White Ophth Oint 3.5 Gm OU Q4HR PRN Dry Eye(s) Multivitamins 1 each 11/13/20 00:00 12/03/20 00:29 Multivitamins ,Therapeutic Tab PO 1 each Q24H KIRK Administration Naloxone HCl 2 mg 11/11/20 08:33 Naloxone 0.4 Mg/1 Ml Inj IV Q2MIN PRN Res Rate </= 8 or 02 SAT < 92% Ondansetron HCl 4 mg 11/11/20 22:58 Ondansetron 4 Mg/2 Ml Inj IV Q3H PRN Nausea And Vomiting Phenobarbital 15 mg 11/11/20 23:45 12/02/20 22:31 Phenobarbital 15 Mg Tab PO 15 mg BID KIRK Administration Simple Syrup 15 ml 11/12/20 12:00 Simple Syrup 15 Ml FEEDTUBE PRN PRN Hypoglycemia Simple Syrup 30 ml 11/12/20 12:00 Simple Syrup 15 Ml FEEDTUBE PRN PRN Hypoglycemia Sodium Bicarbonate 325 mg 11/12/20 12:00 Sodium Bicarbonate 325 Mg Tab FEEDTUBE PRN PRN For Clogged Feeding Tube Sodium Chloride 10 ml 11/11/20 23:00 12/02/20 22:32 Sodium Chloride 0.9% 10 Ml Flush Syringe IV 10 ml BID KIRK Administration Sodium Chloride 10 ml 11/11/20 22:58 Sodium Chloride 0.9% 10 Ml Flush Syringe IV PRN PRN LINE FLUSH Sodium Chloride 2 gm 11/30/20 22:23 12/02/20 20:40 Sodium Chloride 1 Gm Tab PO 2 gm TID KIRK Administration Thiamine HCl 100 mg 11/16/20 10:00 12/02/20 10:20 Thiamine 100 Mg Tab PO 100 mg QDAY KIRK Administration Nutrition/Malnutrition Assess - Dietary Evaluation Nutrition/Malnutrition Findings: Nutrition Notes Start: 11/12/20 08:26 Freq: Status: Active Protocol: Document 12/02/20 13:55 [facility] (Rec: 12/02/20 14:00 [facility] [id number]) Nutrition Notes Initial or Follow up Brief Note Current Diet TF - Jevity 1.2 at 60ml/hr Labs/Tests Na 133 (improving) Height 5 ft 9 in Weight 58.4 kg [place] Body Weight (kg) 72.72 BMI 19.0 Subjective/Other Information Pt tolerating TF at goal rate. He is awaiting placement. Percent of energy/protein needs met: 100% energy/pro Is patient on ventilator? No Is Patient Ambulatory and/or Out of Bed No REE-([place]-St. Jeor-confined to bed) 9741.199 Calculation [facility] Additional Notes Pro needs 1.2-1.5g/k-88g/ day Fluid needs 1ml/kcal Nutrition Intervention Follow-Up By: 12/09/20 Additional Comments F/U: stable TF, wt, Na lab, water flushes
--- NOTE | 2020-12-03 09:16 | Progress Note ---
Assessment and Plan 1. 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 Cortisol level pending. Continue Salt tablets. Tolvaptan: 11/30(15 mg), 4/2(15 mg). Monitor Sodium level. 2. Acute hypoxic respiratory failure: Now extubated. NC oxygen as needed. 3. Acute metabolic encephalopathy: MRI brain showed chronic changes. Monitor. 4. Seizure disorder: Continue antiseizure medications. 5 SIRS: COVID-19 test negative. Monitor. 6. 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 7. Dysphagia: S/p PEG placement. Subjective: Patient was seen and examined at the bedside. Objective: General appearance: well-developed, appears stated age, no distress noted HEENT: ATNC, CHE Neck: trachea midline Respiratory: ctab Heart: regular, S1S2, no murmur Gastrointestinal: soft, normoactive bowel sounds, not tender, PEG tube noted Integumentary: no rash, warm and dry Ext: no edema Neurologic: opens eyes, aphasic, not following any command Subjective Date of service: 12/03/20 Principal diagnosis: Neurogenic Dysphagia Objective - Vital Signs Vital signs: Vital Signs - 12hr 12/02/20 12/02/20 12/03/20 21:47 22:00 03:58 Temperature 98.4 F 98.3 F Pulse Rate 80 84 Respiratory 20 20 16 Rate Blood Pressure 128/67 132/75 O2 Sat by Pulse 92 95 Oximetry - Lab 11/29/20 05:52 12/03/20 04:39 Most recent lab results ABG pH 7.499 (7.320-7.450) H 11/17/20 11:40 ABG pCO2 33.9 mm Hg 11/11/20 10:45 ABG pO2 222.2 mm Hg (80.0-90.0) H 11/11/20 10:45 ABG HCO3 24.9 mmol/L (20.0-26.0) 11/11/20 10:45 ABG O2 Saturation 98.1 (0-100) 11/17/20 11:40 Calcium 9.0 mg/dL (8.4-10.2) 12/03/20 04:39 Magnesium 2.00 mg/dL (1.7-2.3) 11/11/20 09:02 Medications & Allergies - Medications Allergies/Adverse Reactions: Allergies No Known Allergies Allergy (Verified 02/24/18 09:21) Home Medications: Home Medications Medication Instructions Recorded Confirmed Last Taken Type PHENobarbitaL [PHENobarbital] 15 mg PO BID 30 Days #60 tablet 05/30/20 11/12/20 Unknown Rx levETIRAcetam [Keppra TAB] 500 mg PO BID #60 tablet 05/30/20 11/23/20 Unknown Rx Vitamin B-1 100 mg PO DAILY 08/12/20 11/12/20 Unknown History levETIRAcetam [Keppra TAB] 1,000 mg PO BID 30 Days #60 tab 08/12/20 11/23/20 Unknown Rx levETIRAcetam [Keppra TAB] 1,000 mg PO BID 90 Days #180 tab 10/01/20 11/23/20 Unknown Rx haloperidoL [Haloperidol] 5 mg PO ONCE 11/12/20 11/12/20 Unknown History Active Medications: Generic Name Dose Route Start Last Admin Trade Name Freq PRN Reason Stop Dose Admin Acetaminophen 650 mg 11/11/20 22:58 Acetaminophen 325 Mg Tab PO Q4H PRN Pain MILD(1-3)/Fever >100.5/BAR Albuterol 2.5 mg 11/11/20 23:18 Albuterol 2.5 Mg/3 Ml Nebu IH Q3HRT PRN Wheezing Lipase/Protease/Amylase 1 each 11/12/20 12:00 Lipase 10,500/Protease 25,000/Amylase 43,750 (Units) Dr Rangel FEEDTUBE PRN PRN For Clogged Feeding Tube Dextrose 50 ml 11/11/20 22:11 11/17/20 23:29 Dextrose 50% In Water (25gm) 50 Ml Syringe IV 10 ml ONCE PRN Administration Hypoglycemia Protocol Enoxaparin Sodium 40 mg 11/12/20 22:00 12/02/20 22:31 Enoxaparin 40 Mg/0.4 Ml Inj SUB-Q 40 mg QDAY@2200 KIRK Administration Protocol Folic Acid 1 mg 11/16/20 10:00 12/02/20 10:20 Folic Acid 1 Mg Tab PO 1 mg DAILY KIRK Administration Hydralazine HCl 10 mg 11/12/20 10:30 11/14/20 07:30 Hydralazine 20 Mg/1 Ml Inj IV 10 mg Q4H PRN Administration Hypertension Hydrophilic Ointment 1 applic 11/11/20 09:14 Lip Therapy Vaseline TP Q2HR PRN Dry Lips Insulin Human Regular 0 units 11/12/20 18:00 12/03/20 06:20 Insulin Regular, Human 100 Units/1 Ml SUB-Q Not Given Q6H KIRK Protocol Lansoprazole 30 mg 11/24/20 10:00 12/02/20 10:20 Lansoprazole 30 Mg Solutab FEEDTUBE 30 mg QDAY KIRK Administration Levetiracetam 1,000 mg 11/24/20 10:00 12/02/20 22:31 Levetiracetam 500 Mg/5 Ml Oral Liqd FEEDTUBE 1,000 mg BID KIRK Administration Metoclopramide HCl 10 mg 11/11/20 22:58 Metoclopramide 10 Mg/2 Ml Inj IV Q6H PRN Nausea And Vomiting Multi-Ingred Cream/Lotion/Oil/Oint 1 applic 11/11/20 09:14 Mineral Oil/Petrolatum, White Ophth Oint 3.5 Gm OU Q4HR PRN Dry Eye(s) Multivitamins 1 each 11/13/20 00:00 12/03/20 00:29 Multivitamins ,Therapeutic Tab PO 1 each Q24H KIRK Administration Naloxone HCl 2 mg 11/11/20 08:33 Naloxone 0.4 Mg/1 Ml Inj IV Q2MIN PRN Res Rate </= 8 or 02 SAT < 92% Ondansetron HCl 4 mg 11/11/20 22:58 Ondansetron 4 Mg/2 Ml Inj IV Q3H PRN Nausea And Vomiting Phenobarbital 15 mg 11/11/20 23:45 12/02/20 22:31 Phenobarbital 15 Mg Tab PO 15 mg BID KIRK Administration Simple Syrup 15 ml 11/12/20 12:00 Simple Syrup 15 Ml FEEDTUBE PRN PRN Hypoglycemia Simple Syrup 30 ml 11/12/20 12:00 Simple Syrup 15 Ml FEEDTUBE PRN PRN Hypoglycemia Sodium Bicarbonate 325 mg 11/12/20 12:00 Sodium Bicarbonate 325 Mg Tab FEEDTUBE PRN PRN For Clogged Feeding Tube Sodium Chloride 10 ml 11/11/20 23:00 12/02/20 22:32 Sodium Chloride 0.9% 10 Ml Flush Syringe IV 10 ml BID KIRK Administration Sodium Chloride 10 ml 11/11/20 22:58 Sodium Chloride 0.9% 10 Ml Flush Syringe IV PRN PRN LINE FLUSH Sodium Chloride 2 gm 11/30/20 22:23 12/02/20 20:40 Sodium Chloride 1 Gm Tab PO 2 gm TID KIRK Administration Thiamine HCl 100 mg 11/16/20 10:00 12/02/20 10:20 Thiamine 100 Mg Tab PO 100 mg QDAY KIRK Administration
[2020-12-03] MEDS: levETIRAcetam 500 MG/5 ML ORAL LIQD FEEDTUBE SCH ×2 (09:46→21:48)
[2020-12-03] MEDS: THIAMINE 100 MG TAB PO SCH (09:46)
[2020-12-03] MEDS: FOLIC ACID 1 MG TAB PO SCH (09:46)
[2020-12-03] MEDS: PHENobarbital 15 MG TAB PO SCH ×2 (09:46→21:48)
[2020-12-03] MEDS: SODIUM CHLORIDE 1 GM TAB PO SCH ×3 (09:46→21:49)
[2020-12-03] MEDS: LANSOPRAZOLE 30 MG SOLUTAB FEEDTUBE SCH (09:46)
[2020-12-03] MEDS ORDERED: TOLVAPTAN 15 MG TAB PO NR (10:00)
[2020-12-03] MEDS: ENOXAPARIN 40 MG/0.4 ML INJ SUB-Q SCH (21:48)
[2020-12-04] MEDS: INSULIN REGULAR, HUMAN 100 UNITS/1 ML SUB-Q SCH ×4 (00:08→18:06)
[2020-12-04] MEDS: MULTIVITAMINS ,THERAPEUTIC TAB PO SCH ×2 (01:00→23:18)
[2020-12-04 05:47] LABS: Blood Urea Nitrogen 26 mg/dL (9-20); Calcium 9.4 mg/dL (8.4-10.2); Hemolysis Index 3
[2020-12-04 05:56] LABS: BUN/Creatinine Ratio 43
--- NOTE | 2020-12-04 07:56 | Progress Note ---
Assessment and Plan Assessment and plan: COVID-19 test negative x 2 [ 11/12/2020, 11/23/2020] --Acute hypoxic respiratory failure requiring intubation Now extubated, Improved. Now on 2-1/2 L of oxygen Home O2 evaluation at discharge --Acute toxic metabolic encephalopathy Multifactorial, due to seizures, SIRS, hyponatremia, abnormal thyroid functions Unknown baseline, treat the underlying cause Has no ongoing infective process CT head ,MRI brain is negative Continue supportive care --History of seizure disorder; Seizure precautions ,continue antiepileptic medications No new episodes of seizures, cannot drive CT head and brain MRI showed no etiology for seizure --SIRS Etiology unknown-urinalysis negative, chest x-ray also negative COVID-19 test negative, supportive care antibiotics DC'd --Needs ENT as outpatient for evaluation of upper airway. He has no carcinoma as written in previous notes Needs further evaluation of liver lesion with MRI as outpatient Also needs to follow up with pulmonary in the office --Dysphagia; s/p PEG placement, continue PEG care PEG feeds per protocol, aspiration precautions --Hyponatremia; Sodium today 129, continue replacement therapy Closely monitor electrolytes --Abnormal low TSH; Free T4 wnl -- Hypokalemia; No resolved --DVT prophylaxis-SCDs, Lovenox --GI prophylaxis-PPIs --Full CODE STATUS; --Disposition-Pending placement Brief history This is a 60-year-old male with seizure disorder current alcohol and tobacco abuse presents to the hospital on 11/11 after being found unresponsive. On arrival of EMS patient was found to be hypoglycemic and given IV dextrose after which he recovered and refused further care. EMS was called again by family after the patient was found unresponsive and was given Narcan with no change. Patient was noted to have seizure activity and given 7 mg IV Ativan total including 3 from EMS. Patient was loaded with Keppra 2 g and was intubated for airway protection. Patient was found to have metabolic acidosis and hyp oglycemia on BMP. Patient was found to be hypothermic and hypertensive in the emergency department. Patient's UDS was positive for barbiturates. Patient was admitted to the hospital service for further work-up with consults to [facility] and neurology. 11/12. Patient remains intubated. On Keppra and phenobarbital. Neurology evaluation appreciated. EEG ordered. May need transfer to tertiary care for continuous EEG pending EEG results. 11/13. Remains intubated and on antiseizure medications. EEG has been performed but results are pending. Neurology on board 11/14. Remains intubated and on antiseizure medications. EEG has been performed but results are pending. Neurology on board 11/15: EEG is consistent with significant encephalopathy and does not rule out the possibility of epilepsy, patient remains on mechanical ventilation with minimal vent settings. No acute events reported overnight. 11/16: No acute events reported overnight, patient opens eyes spontaneously and withdraws to pain bilateral lower extremities. At the time my examination patient was on CMV 450/18/64/0.30 and has been started on a CPAP trial subsequently. No evidence of generalized seizures noted. Patient is a lui of the state 11/17: Patient was extubated today per [facility], no acute events reported overnight. Patient has a right sided gaze during my examination and was on CPAP / at 30% and he opens his eyes spontaneously. He does withdraw bilateral lower extremities to pain. His Keppra was decreased yesterday. ST evaluation pending 11/18: Follow-up EEG reading. Patient currently off sedation. Nursing to place Dobbhoff tube for feeding. Speech therapy to continue swallow evaluation. No new seizure activity. Continue phenobarbital and Keppra. Seizure precautions. Transfer to [facility] today. 11/19: Dobbhoff tube with removal difficulty yesterday. 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 CT scan of the chest revealed pulmonary nodule and lesion in the liver suggestive of metastatic disease. GI consultation pending. Patient was electively intubated yesterday for airway protection. Extubation today per lmonary 11/20: Await speech therapy evaluation. Patient will likely need PEG tube placement. Consult GI for further evaluation. Oncology consultation for likely metastatic disease. 11/21: Await GI consultation. Appreciate oncology evaluation. 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 Check MRI brain to rule out brain metastasis. Poor prognosis. 11/22: GI recommends tissue diagnosis either with ENT involvement and evaluation of epiglottis mass with biopsy vs biopsy of the liver lesion. Follow-up with case management for obtaining consent for possible PEG tube placement 11/23. Brain MRI showed no brain metastasis. Plan for EGD as per GI. Patient will need possible ENT evaluation of mass with biopsy or biopsy of the liver lesion. 11/24. EGD shows no mass in the oropharynx. PEG was placed during EGD and patient has been started on tube feeds. He will need [facility] to a [facility] and has been accepted at some facilities. COVID-19 test is negative. 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 11/25 -11/27. Sodium trending down. Check osmolality, urine electrolytes. Continue salt tablets. 11/28. Sodium is till trending down. Will check cortisol and TSH. 11/29. Sodium is still <130 despite being on salt tablets and NS. Will consult nephrology 11/30. Nephrology on board - ordered tolvaptan today as sodium is still low. Will continue to trend Na. 12/01. Sodium better. Appreciate nephrology recs. Awaiting placement 12/02. His sodium has improved. Awaiting placement. Has no family. Patient is a uli of the [facility]. He will need ENT evaluation with laryngoscopy at discharge. 12/03; potassium sodium continues to be low, continue current management nephrology following, awaiting placement 12/04: Awaiting placement. No issues noted overnight, Hypokalemia resolved. Monitor for aspiration precautions. Continue current management with nephrology History Interval history: Patient seen and examined he is awake but not interactive he does have some res istance to movement of extremities. He grimaces to noxious stimuli. Hospitalist Physical - Physical exam Narrative exam: General appearance: Present: no acute distress, cachectic, disheveled, awake but not interactive opens eyes very lethargic - EENT Eyes: Present: PERRL, EOM intact - Neck Neck: Present: supple, normal ROM - Respiratory Respiratory effort: normal Respiratory: bilateral: diminished, negative: rales, rhonchi, wheezing - Cardiovascular Rhythm: regular Heart Sounds: Present: S1 & S2 - Extremities Extremities: no ischemia, No edema Extremity abnormal: edema, cyanosis - Abdominal General gastrointestinal: soft, non-tender, non-distended, normal bowel sounds - Integumentary Integumentary: Present: clear, warm - Psychiatric Psychiatric: Flat affect - Neurologic Neurologic: moves all extremities with stimuli - Constitutional Vitals: Temp Pulse Resp BP Pulse Ox 99.3 F 86 18 135/74 96 12/04/20 05:34 12/04/20 05:34 12/04/20 05:34 12/04/20 05:34 12/04/20 05:34 General appearance: Present: no acute distress, cachectic, disheveled, other (unresponsive) HEART Score - HEART Score Troponin: Troponin T < 0.010 ng/mL (0.00-0.029) 11/11/20 09:02 Results - Labs CBC & Chem 7: 11/29/20 05:52 12/04/20 04:34 Labs: Laboratory Last Values WBC 9.7 K/mm3 (4.5-11.0) 11/29/20 05:52 RBC 4.48 M/mm3 (3.65-5.03) 11/29/20 05:52 Hgb 12.8 gm/dl (11.8-15.2) 11/29/20 05:52 Hct 37.9 % (35.5-45.6) 11/29/20 05:52 MCV 85 fl (84-94) 11/29/20 05:52 MCH 29 pg (28-32) 11/29/20 05:52 MCHC 34 % (32-34) 11/29/20 05:52 RDW 14.9 % (13.2-15.2) 11/29/20 05:52 Plt Count 407 K/mm3 (140-440) 11/29/20 05:52 Lymph % (Auto) 18.3 % (13.4-35.0) 11/26/20 06:23 Irion % (Auto) 9.8 % (0.0-7.3) H 11/26/20 06:23 Eos % (Auto) 1.1 % (0.0-4.3) 11/26/20 06:23 Baso % (Auto) 0.7 % (0.0-1.8) 11/26/20 06:23 Lymph # (Auto) 1.7 K/mm3 (1.2-5.4) 11/26/20 06:23 Irion # (Auto) 0.9 K/mm3 (0.0-0.8) H 11/26/20 06:23 Eos # (Auto) 0.1 K/mm3 (0.0-0.4) 11/26/20 06:23 Baso # (Auto) 0.1 K/mm3 (0.0-0.1) 11/26/20 06:23 Add Manual Diff Complete 11/29/20 05:52 Total Counted 100 11/29/20 05:52 Seg Neutrophils % 70.1 % (40.0-70.0) H 11/26/20 06:23 Seg Neuts % (Manual) 76.0 % (40.0-70.0) H 11/29/20 05:52 Lymphocytes % (Manual) 10.0 % (13.4-35.0) L 11/29/20 05:52 Reactive Lymphs % (Man) 4.0 % 11/27/20 05:50 Monocytes % (Manual) 10.0 % (0.0-7.3) H 11/29/20 05:52 Eosinophils % (Manual) 3.0 % (0.0-4.3) 11/29/20 05:52 Metamyelocytes % 1.0 % 11/29/20 05:52 Nucleated RBC % Not Reportable 11/29/20 05:52 Seg Neutrophils # 9.5 K/mm3 (1.8-7.7) H 11/26/20 06:23 Seg Neutrophils # Man 7.4 K/mm3 (1.8-7.7) 11/29/20 05:52 Band Neutrophils # 0.0 K/mm3 11/29/20 05:52 Lymphocytes # (Manual) 1.0 K/mm3 (1.2-5.4) L 11/29/20 05:52 Abs React Lymphs (Man) 0.0 K/mm3 11/29/20 05:52 Monocytes # (Manual) 1.0 K/mm3 (0.0-0.8) H 11/29/20 05:52 Eosinophils # (Manual) 0.3 K/mm3 (0.0-0.4) 11/29/20 05:52 Basophils # (Manual) 0.0 K/mm3 (0.0-0.1) 11/29/20 05:52 Metamyelocytes # 0.1 K/mm3 11/29/20 05:52 Myelocytes # 0.0 K/mm3 11/29/20 05:52 Promyelocytes # 0.0 K/mm3 11/29/20 05:52 Blast Cells # 0.0 K/mm3 11/29/20 05:52 WBC Morphology Not Reportable 11/29/20 05:52 Hypersegmented Neuts Not Reportable 11/29/20 05:52 Hyposegmented Neuts Not Reportable 11/29/20 05:52 Hypogranular Neuts Not Reportable 11/29/20 05:52 Smudge Cells Not Reportable 11/29/20 05:52 Toxic Granulation Not Reportable 11/29/20 05:52 Toxic Vacuolation Not Reportable 11/29/20 05:52 Dohle Bodies Not Reportable 11/29/20 05:52 Pelger-Huet Anomaly Not Reportable 11/29/20 05:52 Fercho Rods Not Reportable 11/29/20 05:52 Platelet Estimate Consistent w auto 11/29/20 05:52 Clumped Platelets Not Reportable 11/29/20 05:52 Plt Clumps, EDTA Not Reportable 11/29/20 05:52 Large Platelets Not Reportable 11/29/20 05:52 Giant Platelets Not Reportable 11/29/20 05:52 Platelet Satelliting Not Reportable 11/29/20 05:52 Plt Morphology Comment Not Reportable 11/29/20 05:52 RBC Morphology Not Reportable 11/29/20 05:52 Dimorphic RBCs Not Reportable 11/29/20 05:52 Polychromasia Not Reportable 11/29/20 05:52 Hypochromasia Not Reportable 11/29/20 05:52 Poikilocytosis Not Reportable 11/29/20 05:52 Anisocytosis Few 11/29/20 05:52 Microcytosis Not Reportable 11/29/20 05:52 Macrocytosis Not Reportable 11/29/20 05:52 Spherocytes Not Reportable 11/29/20 05:52 Pappenheimer Bodies Not Reportable 11/29/20 05:52 Sickle Cells Not Reportable 11/29/20 05:52 Target Cells Few 11/29/20 05:52 Tear Drop Cells Not Reportable 11/29/20 05:52 Ovalocytes Not Reportable 11/29/20 05:52 Helmet Cells Not Reportable 11/29/20 05:52 Kim-Aptos Bodies Not Reportable 11/29/20 05:52 [place] Rings Not Reportable 11/29/20 05:52 Joni Cells Not Reportable 11/29/20 05:52 Bite Cells Not Reportable 11/29/20 05:52 Crenated Cell Not Reportable 11/29/20 05:52 Elliptocytes Not Reportable 11/29/20 05:52 Acanthocytes (Spur) Not Reportable 11/29/20 05:52 Rouleaux Not Reportable 11/29/20 05:52 Hemoglobin C Crystals Not Reportable 11/29/20 05:52 Schistocytes Not Reportable 11/29/20 05:52 Malaria parasites Not Reportable 11/29/20 05:52 Jones Bodies Not Reportable 11/29/20 05:52 Hem Pathologist Commnt No 11/29/20 05:52 PT 11.5 Sec. (12.2-14.9) L 11/11/20 09:02 INR 0.86 (0.87-1.13) L 11/11/20 09:02 APTT 25.5 Sec. (24.2-36.6) 11/11/20 09:02 Thrombin Time 17.0 Sec. (15.1-19.6) 11/11/20 09:02 ABG pH 7.499 (7.320-7.450) H 11/17/20 11:40 POC ABG pCO2 36.3 mmHg (32.0-48.0) 11/17/20 11:40 ABG pCO2 33.9 mm Hg 11/11/20 10:45 POC ABG pO2 140.8 mmHg (83-108) H 11/17/20 11:40 ABG pO2 222.2 mm Hg (80.0-90.0) H 11/11/20 10:45 POC ABG HCO3 27.6 11/17/20 11:40 ABG HCO3 24.9 mmol/L (20.0-26.0) 11/11/20 10:45 ABG O2 Saturation 98.1 (0-100) 11/17/20 11:40 ABG O2 Content 19.4 (0.0-44) 11/11/20 10:45 POC ABG Base Excess 4.4 11/17/20 11:40 ABG Base Excess 1.9 mmol/L (-2.0-3.0) 11/11/20 10:45 ABG Hemoglobin 11.8 (12.0-17.5) L 11/17/20 11:40 ABG Oxyhemoglobin 97.4 (94-98) 11/17/20 11:40 ABG Carboxyhemoglobin 0.6 % (0.0-5.0) 11/11/20 10:45 ABG Methemoglobin 0.3 (0.0-1.5) 11/17/20 11:40 ABG Sodium 135.1 mmol/L (136.0-145.0) L 11/17/20 11:40 ABG Potassium 4.2 mmol/L (3.40-4.50) 11/17/20 11:40 ABG Chloride 102.0 mmol/L (98-107) 11/17/20 11:40 ABG Glucose 110 mg/dL (65-95) H 11/17/20 11:40 Oxyhemoglobin 98.5 % (95.0-99.0) 11/11/20 10:45 Carboxyhemoglobin 0.4 (0.5-1.5) L 11/17/20 11:40 FiO2 21 % 11/11/20 10:45 FiO2 % 30 11/17/20 11:40 Sodium 136 mmol/L (137-145) L D 12/04/20 04:34 Potassium 4.3 mmol/L (3.6-5.0) 12/04/20 04:34 Chloride 98.5 mmol/L (98-107) 12/04/20 04:34 Carbon Dioxide 30 mmol/L (22-30) 12/04/20 04:34 Anion Gap 12 mmol/L 12/04/20 04:34 BUN 26 mg/dL (9-20) H 12/04/20 04:34 Creatinine 0.6 mg/dL (0.8-1.3) L 12/04/20 04:34 Estimated GFR > 60 ml/min 12/04/20 04:34 BUN/Creatinine Ratio 43 % 12/04/20 04:34 Glucose 128 mg/dL (75-100) H 12/04/20 04:34 POC Glucose 119 mg/dL (70-105) H 12/04/20 06:35 Hemoglobin A1c 5.4 % (4-6) 11/12/20 07:26 Osmolality 274 Mosm/kg 11/29/20 13:08 Uric Acid 1.7 mg/dL (3.5-7.6) L 11/29/20 13:08 Calcium 9.4 mg/dL (8.4-10.2) 12/04/20 04:34 Magnesium 2.00 mg/dL (1.7-2.3) 11/11/20 09:02 Total Bilirubin 0.40 mg/dL (0.1-1.2) 11/29/20 05:52 AST 42 units/L (5-40) H 11/29/20 05:52 ALT 30 units/L (7-56) 11/29/20 05:52 Alkaline Phosphatase 156 units/L (35-129) H 11/29/20 05:52 Ammonia 29.0 umol/L (25-60) 11/12/20 08:47 Total Creatine Kinase 169 units/L (55-170) 11/11/20 09:02 CK-MB (CK-2) 6.6 ng/mL (0.0-4.0) H 11/11/20 09:02 CK-MB (CK-2) Rel Index 3.9 (0-4) 11/11/20 09:02 Troponin T < 0.010 ng/mL (0.00-0.029) 11/11/20 09:02 Total Protein 7.8 g/dL (6.3-8.2) 11/29/20 05:52 Albumin 3.2 g/dL (3.9-5) L 11/29/20 05:52 Albumin/Globulin Ratio 0.7 % 11/29/20 05:52 TSH 5.610 mlU/mL (0.270-4.200) H 11/29/20 05:52 Free T4 1.24 ng/dL (0.76-1.46) 11/29/20 10:31 Total Cortisol 25.5 mcg/dL () 11/29/20 05:52 Arterial Blood Glucose 110 mg/dL (65-95) H 11/17/20 11:40 Arterial Blood Ionized Calcium 4.9 mg/dL (4.6-5.3) 11/17/20 11:40 Urine Color Yellow (Yellow) 11/11/20 20:27 Urine Turbidity Clear (Clear) 11/11/20 20:27 Urine pH 6.0 (5.0-7.0) 11/11/20 20:27 Ur Specific [place] 1.045 (1.003-1.030) H 11/11/20 20:27 Urine Protein 100 mg/dl mg/dL (Negative) 11/11/20 20:27 Urine Glucose (UA) Neg mg/dL (Negative) 11/11/20 20: Urine Ketones Neg mg/dL (Negative) 11/11/20 20:27 Urine Blood Sm (Negative) 11/11/20 20:27 Urine Nitrite Neg (Negative) 11/11/20 20:27 Urine Bilirubin Neg (Negative) 11/11/20 20:27 Urine Urobilinogen 4.0 mg/dL (<2.0) 11/11/20 20:27 Ur Leukocyte Esterase Neg (Negative) 11/11/20 20:27 Urine WBC (Auto) 1.0 /HPF (0.0-6.0) 11/11/20 20: Urine RBC (Auto) 4.0 /HPF (0.0-6.0) 11/11/20 20:27 U Epithel Cells (Auto) 12.0 /HPF (0-13.0) 11/11/20 20:27 Urine Bacteria (Auto) 1+ /HPF (Negative) 11/11/20 20:27 Urine Mucus Few /HPF 11/11/20 20:27 Urine Osmolality 610 Mosm/kg 11/29/20 11:09 Urine Opiates Screen Negative 11/11/20 20:27 Urine Methadone Screen Negative 11/11/20 20:27 Ur Barbiturates Screen Positive 11/11/20 20:27 Ur Phencyclidine Scrn Negative 11/11/20 20:27 Ur Amphetamines Screen Negative 11/11/20 20:27 Phenobarbital 4.3 ug/mL (15.0-40.0) L 11/12/20 08:47 U Benzodiazepines Scrn Negative 11/11/20 20:27 Urine Cocaine Screen Negative 11/11/20 20:27 U Marijuana (THC) Screen Negative 11/11/20 20:27 Drugs of Abuse Note Disclamer 11/11/20 20:27 Plasma/Serum Alcohol < 0.01 % (0-0.07) 11/11/20 09:02 Coronavirus (PCR) Negative (Negative) 12/02/20 Unknown [place]/IV: Voiding Method Condom Catheter Active Medications - Current Medications Current Medications: Generic Name Dose Route Start Last Admin Trade Name Freq PRN Reason Stop Dose Admin Acetaminophen 650 mg 11/11/20 22:58 Acetaminophen 325 Mg Tab PO Q4H PRN Pain MILD(1-3)/Fever >100.5/BAR Albuterol 2.5 mg 11/11/20 23:18 Albuterol 2.5 Mg/3 Ml Nebu IH Q3HRT PRN Wheezing Lipase/Protease/Amylase 1 each 11/12/20 12:00 Lipase 10,500/Protease 25,000/Amylase 43,750 (Units) Dr Rangel FEEDTUBE PRN PRN For Clogged Feeding Tube Dextrose 50 ml 11/11/20 22:11 11/17/20 23:29 Dextrose 50% In Water (25gm) 50 Ml Syringe IV 10 ml ONCE PRN Administration Hypoglycemia Protocol Enoxaparin Sodium 40 mg 11/12/20 22:00 12/03/20 21:48 Enoxaparin 40 Mg/0.4 Ml Inj SUB-Q 40 mg QDAY@2200 KIRK Administration Protocol Folic Acid 1 mg 11/16/20 10:00 12/03/20 09:46 Folic Acid 1 Mg Tab PO 1 mg DAILY KIRK Administration Hydralazine HCl 10 mg 11/12/20 10:30 11/14/20 07:30 Hydralazine 20 Mg/1 Ml Inj IV 10 mg Q4H PRN Administration Hypertension Hydrophilic Ointment 1 applic 11/11/20 09:14 Lip Therapy Vaseline TP Q2HR PRN Dry Lips Insulin Human Regular 0 units 11/12/20 18:00 12/04/20 06:00 Insulin Regular, Human 100 Units/1 Ml SUB-Q Not Given Q6H KIRK Protocol Lansoprazole 30 mg 11/24/20 10:00 12/03/20 09:46 Lansoprazole 30 Mg Solutab FEEDTUBE 30 mg QDAY KIRK Administration Levetiracetam 1,000 mg 11/24/20 10:00 12/03/20 21:48 Levetiracetam 500 Mg/5 Ml Oral Liqd FEEDTUBE 1,000 mg BID KIRK Administration Metoclopramide HCl 10 mg 11/11/20 22:58 Metoclopramide 10 Mg/2 Ml Inj IV Q6H PRN Nausea And Vomiting Multi-Ingred Cream/Lotion/Oil/Oint 1 applic 11/11/20 09:14 Mineral Oil/Petrolatum, White Ophth Oint 3.5 Gm OU Q4HR PRN Dry Eye(s) Multivitamins 1 each 11/13/20 00:00 12/04/20 01:00 Multivitamins ,Therapeutic Tab PO 1 each Q24H KIRK Administration Naloxone HCl 2 mg 11/11/20 08:33 Naloxone 0.4 Mg/1 Ml Inj IV Q2MIN PRN Res Rate </= 8 or 02 SAT < 92% Ondansetron HCl 4 mg 11/11/20 22:58 Ondansetron 4 Mg/2 Ml Inj IV Q3H PRN Nausea And Vomiting Phenobarbital 15 mg 11/11/20 23:45 12/03/20 21:48 Phenobarbital 15 Mg Tab PO 15 mg BID KIRK Administration Simple Syrup 15 ml 11/12/20 12:00 Simple Syrup 15 Ml FEEDTUBE PRN PRN Hypoglycemia Simple Syrup 30 ml 11/12/20 12:00 Simple Syrup 15 Ml FEEDTUBE PRN PRN Hypoglycemia Sodium Bicarbonate 325 mg 11/12/20 12:00 Sodium Bicarbonate 325 Mg Tab FEEDTUBE PRN PRN For Clogged Feeding Tube Sodium Chloride 10 ml 11/11/20 23:00 12/03/20 21:50 Sodium Chloride 0.9% 10 Ml Flush Syringe IV 10 ml BID KIRK Administration Sodium Chloride 10 ml 11/11/20 22:58 Sodium Chloride 0.9% 10 Ml Flush Syringe IV PRN PRN LINE FLUSH Sodium Chloride 2 gm 11/30/20 22:23 12/03/20 21:49 Sodium Chloride 1 Gm Tab PO 2 gm TID KIRK Administration Thiamine HCl 100 mg 11/16/20 10:00 12/03/20 09:46 Thiamine 100 Mg Tab PO 100 mg QDAY KIRK Administration Nutrition/Malnutrition Assess - Dietary Evaluation Nutrition/Malnutrition Findings: Nutrition Notes Start: 11/12/20 08:26 Freq: Status: Active Protocol: Document 12/02/20 13:55 JOHANA (Rec: 12/02/20 14:00 JOHANA [id number]) Nutrition Notes Initial or Follow up Brief Note Current Diet TF - Jevity 1.2 at 60ml/hr Labs/Tests Na 133 (improving) Height 5 ft 9 in Weight 58.4 kg [place] Body Weight (kg) 72.72 BMI 19.0 Subjective/Other Information Pt tolerating TF at goal rate. He is awaiting placement. Percent of energy/protein needs met: 100% energy/pro Is patient on ventilator? No Is Patient Ambulatory and/or Out of Bed No REE-([facility]-confined to bed) [phone] Calculation Used for Recommendations [facility] Additional Notes Pro needs 1.2-1.5g/k-88g/ day Fluid needs 1ml/kcal Nutrition Intervention Follow-Up By: 12/09/20 Additional Comments F/U: stable TF, wt, Na lab, water flushes
[2020-12-04] MEDS: FOLIC ACID 1 MG TAB PO SCH (09:32)
[2020-12-04] MEDS: THIAMINE 100 MG TAB PO SCH (09:32)
[2020-12-04] MEDS: PHENobarbital 15 MG TAB PO SCH ×2 (09:32→21:49)
[2020-12-04] MEDS: LANSOPRAZOLE 30 MG SOLUTAB FEEDTUBE SCH (09:32)
[2020-12-04] MEDS: levETIRAcetam 500 MG/5 ML ORAL LIQD FEEDTUBE SCH ×2 (09:32→21:50)
[2020-12-04] MEDS: SODIUM CHLORIDE 1 GM TAB PO SCH ×3 (09:32→21:49)
--- NOTE | 2020-12-04 11:38 | Progress Note ---
Assessment and Plan 1. 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 Normal Cortisol level. Tolvaptan: /30(15 mg), 4/2(15 mg). Continue Salt tablets. Monitor Sodium level. 2. Acute hypoxic respiratory failure: Now extubated. NC oxygen as needed. 3. Acute metabolic encephalopathy: MRI brain showed chronic changes. Monitor. 4. Seizure disorder: Continue antiseizure medications. 5 SIRS: COVID-19 test negative. Monitor. 6. 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 7. Dysphagia: S/p PEG placement. Subjective: Patient was seen and examined at the bedside. Objective: General appearance: well-developed, appears stated age, no distress noted HEENT: ATNC Neck: trachea midline Respiratory: ctab Heart: regular, S1S2, no murmur Gastrointestinal: soft, normoactive bowel sounds, not tender, PEG tube noted Integumentary: no rash, warm and dry Ext: no edema Neurologic: opens eyes, aphasic, not following any command Subjective Date of service: 12/04/20 Principal diagnosis: Neurogenic Dysphagia Objective - Vital Signs Vital signs: Vital Signs - 12hr 12/04/20 05:34 Temperature 99.3 F Pulse Rate 86 Respiratory 18 Rate Blood Pressure 135/74 O2 Sat by Pulse 96 Oximetry - Lab 11/29/20 05:52 12/04/20 04:34 Most recent lab results ABG pH 7.499 (7.320-7.450) H 11/17/20 11:40 ABG pCO2 33.9 mm Hg 11/11/20 10:45 ABG pO2 222.2 mm Hg (80.0-90.0) H 11/11/20 10:45 ABG HCO3 24.9 mmol/L (20.0-26.0) 11/11/20 10:45 ABG O2 Saturation 98.1 (0-100) 11/17/20 11:40 Calcium 9.4 mg/dL (8.4-10.2) 12/04/20 04:34 Magnesium 2.00 mg/dL (1.7-2.3) 11/11/20 09:02 Medications & Allergies - Medications Allergies/Adverse Reactions: Allergies No Known Allergies Allergy (Verified 02/24/18 09:21) Home Medications: Home Medications Medication Instructions Recorded Confirmed Last Taken Type PHENobarbitaL [PHENobarbital] 15 mg PO BID 30 Days #60 tablet 05/30/20 11/12/20 Unknown Rx levETIRAcetam [Keppra TAB] 500 mg PO BID #60 tablet 05/30/20 11/23/20 Unknown Rx Vitamin B-1 100 mg PO DAILY 08/12/20 11/12/20 Unknown History levETIRAcetam [Keppra TAB] 1,000 mg PO BID 30 Days #60 tab 08/12/20 11/23/20 Unknown Rx levETIRAcetam [Keppra TAB] 1,000 mg PO BID 90 Days #180 tab 10/01/20 11/23/20 Unknown Rx haloperidoL [Haloperidol] 5 mg PO ONCE 11/12/20 11/12/20 Unknown History Active Medications: Generic Name Dose Route Start Last Admin Trade Name Freq PRN Reason Stop Dose Admin Acetaminophen 650 mg 11/11/20 22:58 Acetaminophen 325 Mg Tab PO Q4H PRN Pain MILD(1-3)/Fever >100.5/BAR Albuterol 2.5 mg 11/11/20 23:18 Albuterol 2.5 Mg/3 Ml Nebu IH Q3HRT PRN Wheezing Lipase/Protease/Amylase 1 each 11/12/20 12:00 Lipase 10,500/Protease 25,000/Amylase 43,750 (Units) Dr Rangel FEEDTUBE PRN PRN For Clogged Feeding Tube Dextrose 50 ml 11/11/20 22:11 11/17/20 23:29 Dextrose 50% In Water (25gm) 50 Ml Syringe IV 10 ml ONCE PRN Administration Hypoglycemia Protocol Enoxaparin Sodium 40 mg 11/12/20 22:00 12/03/20 21:48 Enoxaparin 40 Mg/0.4 Ml Inj SUB-Q 40 mg QDAY@2200 KIRK Administration Protocol Folic Acid 1 mg 11/16/20 10:00 12/04/20 09:32 Folic Acid 1 Mg Tab PO 1 mg DAILY KIRK Administration Hydralazine HCl 10 mg 11/12/20 10:30 11/14/20 07:30 Hydralazine 20 Mg/1 Ml Inj IV 10 mg Q4H PRN Administration Hypertension Hydrophilic Ointment 1 applic 11/11/20 09:14 Lip Therapy Vaseline TP Q2HR PRN Dry Lips Insulin Human Regular 0 units 11/12/20 18:00 12/04/20 06:00 Insulin Regular, Human 100 Units/1 Ml SUB-Q Not Given Q6H [facility] Protocol Lansoprazole 30 mg 11/24/20 10:00 12/04/20 09:32 Lansoprazole 30 Mg Solutab FEEDTUBE 30 mg QDAY KIRK Administration Levetiracetam 1,000 mg 11/24/20 10:00 12/04/20 09:32 Levetiracetam 500 Mg/5 Ml Oral Liqd FEEDTUBE 1,000 mg BID KIRK Administration Metoclopramide HCl 10 mg 11/11/20 22:58 Metoclopramide 10 Mg/2 Ml Inj IV Q6H PRN Nausea And Vomiting Multi-Ingred Cream/Lotion/Oil/Oint 1 applic 11/11/20 09:14 Mineral Oil/Petrolatum, White Ophth Oint 3.5 Gm OU Q4HR PRN Dry Eye(s) Multivitamins 1 each 11/13/20 00:00 12/04/20 01:00 Multivitamins ,Therapeutic Tab PO 1 each Q24H KIRK Administration Naloxone HCl 2 mg 11/11/20 08:33 Naloxone 0.4 Mg/1 Ml Inj IV Q2MIN PRN Res Rate </= 8 or 02 SAT < 92% Ondansetron HCl 4 mg 11/11/20 22:58 Ondansetron 4 Mg/2 Ml Inj IV Q3H PRN Nausea And Vomiting Phenobarbital 15 mg 11/11/20 23:45 12/04/20 09:32 Phenobarbital 15 Mg Tab PO 15 mg BID KIRK Administration Simple Syrup 15 ml 11/12/20 12:00 Simple Syrup 15 Ml FEEDTUBE PRN PRN Hypoglycemia Simple Syrup 30 ml 11/12/20 12:00 Simple Syrup 15 Ml FEEDTUBE PRN PRN Hypoglycemia Sodium Bicarbonate 325 mg 11/12/20 12:00 Sodium Bicarbonate 325 Mg Tab FEEDTUBE PRN PRN For Clogged Feeding Tube Sodium Chloride 10 ml 11/11/20 23:00 12/04/20 09:32 Sodium Chloride 0.9% 10 Ml Flush Syringe IV 10 ml BID KIRK Administration Sodium Chloride 10 ml 11/11/20 22:58 Sodium Chloride 0.9% 10 Ml Flush Syringe IV PRN PRN LINE FLUSH Sodium Chloride 2 gm 11/30/20 22:23 12/04/20 09:32 Sodium Chloride 1 Gm Tab PO 2 gm TID KIRK Administration Thiamine HCl 100 mg 11/16/20 10:00 12/04/20 09:32 Thiamine 100 Mg Tab PO 100 mg QDAY KIRK Administration
[2020-12-04] MEDS: ENOXAPARIN 40 MG/0.4 ML INJ SUB-Q SCH (21:49)
[2020-12-05] MEDS: INSULIN REGULAR, HUMAN 100 UNITS/1 ML SUB-Q SCH ×4 (00:04→17:59)
[2020-12-05 07:08] LABS: Bacteria,Urine 1+ /HPF (Negative); Bilirubin,Urine NEG (Negative); Blood,Urine NEG (Negative); Color,Urine Amber (Yellow); Mucus,Urine FEW /HPF
--- NOTE | 2020-12-05 08:57 | Progress Note ---
Assessment and Plan Assessment and plan: COVID-19 test negative x 2 [ 11/12/2020, 11/23/2020] --Acute hypoxic respiratory failure requiring intubation Now extubated, Improved. Now on 2-1/2 L of oxygen Home O2 evaluation at discharge --Acute toxic metabolic encephalopathy Multifactorial, due to seizures, SIRS, hyponatremia, abnormal thyroid functions Unknown baseline, treat the underlying cause Has no ongoing infective process CT head ,MRI brain is negative Continue supportive care --History of seizure disorder; Seizure precautions ,continue antiepileptic medications No new episodes of seizures, cannot drive CT head and brain MRI showed no etiology for seizure --SIRS Etiology unknown-urinalysis negative, chest x-ray also negative COVID-19 test negative, supportive care antibiotics DC'd --Needs ENT as outpatient for evaluation of upper airway. He has no carcinoma as written in previous notes Needs further evaluation of liver lesion with MRI as outpatient Also needs to follow up with pulmonary in the office --Dysphagia; s/p PEG placement, continue PEG care PEG feeds per protocol, aspiration precautions --Hyponatremia; Sodium today 129, continue replacement therapy Closely monitor electrolytes --Abnormal low TSH; Free T4 wnl -- Hypokalemia; No resolved --DVT prophylaxis-SCDs, Lovenox --GI prophylaxis-PPIs --Full CODE STATUS; --Disposition-Pending placement Brief history This is a 60-year-old male with seizure disorder current alcohol and tobacco abuse presents to the hospital on 11/11 after being found unresponsive. On arrival of EMS patient was found to be hypoglycemic and given IV dextrose after which he recovered and refused further care. EMS was called again by family after the patient was found unresponsive and was given Narcan with no change. Patient was noted to have seizure activity and given 7 mg IV Ativan total including 3 from EMS. Patient was loaded with Keppra 2 g and was intubated for airway protection. Patient was found to have metabolic acidosis and hyp oglycemia on BMP. Patient was found to be hypothermic and hypertensive in the emergency department. Patient's UDS was positive for barbiturates. Patient was admitted to the hospital service for further work-up with consults to [facility] and neurology. 11/12. Patient remains intubated. On Keppra and phenobarbital. Neurology evaluation appreciated. EEG ordered. May need transfer to tertiary care for continuous EEG pending EEG results. 11/13. Remains intubated and on antiseizure medications. EEG has been performed but results are pending. Neurology on board 11/14. Remains intubated and on antiseizure medications. EEG has been performed but results are pending. Neurology on board 11/15: EEG is consistent with significant encephalopathy and does not rule out the possibility of epilepsy, patient remains on mechanical ventilation with minimal vent settings. No acute events reported overnight. 11/16: No acute events reported overnight, patient opens eyes spontaneously and withdraws to pain bilateral lower extremities. At the time my examination patient was on CMV 450/18/64/0.30 and has been started on a CPAP trial subsequently. No evidence of generalized seizures noted. Patient is a lui of the state 11/17: Patient was extubated today per [facility], no acute events reported overnight. Patient has a right sided gaze during my examination and was on CPAP / at 30% and he opens his eyes spontaneously. He does withdraw bilateral lower extremities to pain. His Keppra was decreased yesterday. ST evaluation pending 11/18: Follow-up EEG reading. Patient currently off sedation. Nursing to place Dobbhoff tube for feeding. Speech therapy to continue swallow evaluation. No new seizure activity. Continue phenobarbital and Keppra. Seizure precautions. Transfer to [facility] today. 11/19: Dobbhoff tube with removal difficulty yesterday. 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 CT scan of the chest revealed pulmonary nodule and lesion in the liver suggestive of metastatic disease. GI consultation pending. Patient was electively intubated yesterday for airway protection. Extubation today per lmonary 11/20: Await speech therapy evaluation. Patient will likely need PEG tube placement. Consult GI for further evaluation. Oncology consultation for likely metastatic disease. 11/21: Await GI consultation. Appreciate oncology evaluation. 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 Check MRI brain to rule out brain metastasis. Poor prognosis. 11/22: GI recommends tissue diagnosis either with ENT involvement and evaluation of epiglottis mass with biopsy vs biopsy of the liver lesion. Follow-up with case management for obtaining consent for possible PEG tube placement 11/23. Brain MRI showed no brain metastasis. Plan for EGD as per GI. Patient will need possible ENT evaluation of mass with biopsy or biopsy of the liver lesion. 11/24. EGD shows no mass in the oropharynx. PEG was placed during EGD and patient has been started on tube feeds. He will need placement to a [facility] facility and has been accepted at some facilities. COVID-19 test is negative. 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 11/25 -11/27. Sodium trending down. Check osmolality, urine electrolytes. Continue salt tablets. 11/28. Sodium is till trending down. Will check cortisol and TSH. 11/29. Sodium is still <130 despite being on salt tablets and NS. Will consult nephrology 11/30. Nephrology on board - ordered tolvaptan today as sodium is still low. Will continue to trend Na. 12/01. Sodium better. Appreciate nephrology recs. Awaiting placement 12/02. His sodium has improved. Awaiting placement. Has no family. Patient is a lui of the [facility]. He will need ENT evaluation with laryngoscopy at discharge. 12/03; potassium sodium continues to be low, continue current management nephrology following, awaiting placement 12/04: Awaiting placement. No issues noted overnight, Hypokalemia resolved. Monitor for aspiration precautions. Continue current management with nephrology 12/05: Overall poor prognosis considering his overall medical condition. He still very lethargic very drowsy and somnolent. Urinalysis yesterday reveals urinary tract infection. Will start patient on empiric antibiotics while awaiting cultures. Strongly recommend that hospice should be considered for this patient History Interval history: Patient seen and examined he is awake but not interactive he does have some resistance to movement of extremities. He grimaces to noxious stimuli. Hospitalist Physical - Physical exam Narrative exam: General appearance: Present: no acute distress, cachectic, disheveled, awake but not interactive opens eyes very lethargic - EENT Eyes: Present: PERRL, EOM intact - Neck Neck: Present: supple, normal ROM - Respiratory Respiratory effort: normal Respiratory: bilateral: diminished, negative: rales, rhonchi, wheezing - Cardiovascular Rhythm: regular Heart Sounds: Present: S1 & S2 - Extremities Extremities: no ischemia, No edema Extremity abnormal: edema, cyanosis - Abdominal General gastrointestinal: soft, non-tender, non-distended, normal bowel sounds - Integumentary Integumentary: Present: clear, warm - Psychiatric Psychiatric: Flat affect - Neurologic Neurologic: moves all extremities with stimuli - Constitutional Vitals: Temp Pulse Resp BP Pulse Ox 97.0 F L 93 H 16 111/73 97 12/04/20 21:38 12/04/20 21:38 12/04/20 21:38 12/04/20 21:38 12/04/20 21:38 General appearance: Present: no acute distress, cachectic, disheveled, other (unresponsive) HEART Score - HEART Score Troponin: Troponin T < 0.010 ng/mL (0.00-0.029) 11/11/20 09:02 Results - Labs CBC & Chem 7: 11/29/20 05:52 12/05/20 07:53 Labs: Laboratory Last Values WBC 9.7 K/mm3 (4.5-11.0) 11/29/20 05:52 RBC 4.48 M/mm3 (3.65-5.03) 11/29/20 05:52 Hgb 12.8 gm/dl (11.8-15.2) 11/29/20 05:52 Hct 37.9 % (35.5-45.6) 11/29/20 05:52 MCV 85 fl (84-94) 11/29/20 05:52 MCH 29 pg (28-32) 11/29/20 05:52 MCHC 34 % (32-34) 11/29/20 05:52 RDW 14.9 % (13.2-15.2) 11/29/20 05:52 Plt Count 407 K/mm3 (140-440) 11/29/20 05:52 Lymph % (Auto) 18.3 % (13.4-35.0) 11/26/20 06:23 Price % (Auto) 9.8 % (0.0-7.3) H 11/26/20 06:23 Eos % (Auto) 1.1 % (0.0-4.3) 11/26/20 06:23 Baso % (Auto) 0.7 % (0.0-1.8) 11/26/20 06:23 Lymph # (Auto) 1.7 K/mm3 (1.2-5.4) 11/26/20 06:23 Price # (Auto) 0.9 K/mm3 (0.0-0.8) H 11/26/20 06:23 Eos # (Auto) 0.1 K/mm3 (0.0-0.4) 11/26/20 06:23 Baso # (Auto) 0.1 K/mm3 (0.0-0.1) 11/26/20 06:23 Add Manual Diff Complete 11/29/20 05:52 Total Counted 100 11/29/20 05:52 Seg Neutrophils % 70.1 % (40.0-70.0) H 11/26/20 06:23 Seg Neuts % (Manual) 76.0 % (40.0-70.0) H 11/29/20 05:52 Lymphocytes % (Manual) 10.0 % (13.4-35.0) L 11/29/20 05:52 Reactive Lymphs % (Man) 4.0 % 11/27/20 05:50 Monocytes % (Manual) 10.0 % (0.0-7.3) H 11/29/20 05:52 Eosinophils % (Manual) 3.0 % (0.0-4.3) 11/29/20 05:52 Metamyelocytes % 1.0 % 11/29/20 05:52 Nucleated RBC % Not Reportable 11/29/20 05:52 Seg Neutrophils # 9.5 K/mm3 (1.8-7.7) H 11/26/20 06:23 Seg Neutrophils # Man 7.4 K/mm3 (1.8-7.7) 11/29/20 05:52 Band Neutrophils # 0.0 K/mm3 11/29/20 05:52 Lymphocytes # (Manual) 1.0 K/mm3 (1.2-5.4) L 11/29/20 05:52 Abs React Lymphs (Man) 0.0 K/mm3 11/29/20 05:52 Monocytes # (Manual) 1.0 K/mm3 (0.0-0.8) H 11/29/20 05:52 Eosinophils # (Manual) 0.3 K/mm3 (0.0-0.4) 11/29/20 05:52 Basophils # (Manual) 0.0 K/mm3 (0.0-0.1) 11/29/20 05:52 Metamyelocytes # 0.1 K/mm3 11/29/20 05:52 Myelocytes # 0.0 K/mm3 11/29/20 05:52 Promyelocytes # 0.0 K/mm3 11/29/20 05:52 Blast Cells # 0.0 K/mm3 11/29/20 05:52 WBC Morphology Not Reportable 11/29/20 05:52 Hypersegmented Neuts Not Reportable 11/29/20 05:52 Hyposegmented Neuts Not Reportable 11/29/20 05:52 Hypogranular Neuts Not Reportable 11/29/20 05:52 Smudge Cells Not Reportable 11/29/20 05:52 Toxic Granulation Not Reportable 11/29/20 05:52 Toxic Vacuolation Not Reportable 11/29/20 05:52 Dohle Bodies Not Reportable 11/29/20 05:52 Pelger-Huet Anomaly Not Reportable 11/29/20 05:52 Fercho Rods Not Reportable 11/29/20 05:52 Platelet Estimate Consistent w auto 11/29/20 05:52 Clumped Platelets Not Reportable 11/29/20 05:52 Plt Clumps, EDTA Not Reportable 11/29/20 05:52 Large Platelets Not Reportable 11/29/20 05:52 Giant Platelets Not Reportable 11/29/20 05:52 Platelet Satelliting Not Reportable 11/29/20 05:52 Plt Morphology Comment Not Reportable 11/29/20 05:52 RBC Morphology Not Reportable 11/29/20 05:52 Dimorphic RBCs Not Reportable 11/29/20 05:52 Polychromasia Not Reportable 11/29/20 05:52 Hypochromasia Not Reportable 11/29/20 05:52 Poikilocytosis Not Reportable 11/29/20 05:52 Anisocytosis Few 11/29/20 05:52 Microcytosis Not Reportable 11/29/20 05:52 Macrocytosis Not Reportable 11/29/20 05:52 Spherocytes Not Reportable 11/29/20 05:52 Pappenheimer Bodies Not Reportable 11/29/20 05:52 Sickle Cells Not Reportable 11/29/20 05:52 Target Cells Few 11/29/20 05:52 Tear Drop Cells Not Reportable 11/29/20 05:52 Ovalocytes Not Reportable 11/29/20 05:52 Helmet Cells Not Reportable 11/29/20 05:52 [place] Bodies Not Reportable 11/29/20 05:52 [place] Rings Not Reportable 11/29/20 05:52 [place] Cells Not Reportable 11/29/20 05:52 Bite Cells Not Reportable 11/29/20 05:52 Crenated Cell Not Reportable 11/29/20 05:52 Elliptocytes Not Reportable 11/29/20 05:52 Acanthocytes (Spur) Not Reportable 11/29/20 05:52 Rouleaux Not Reportable 11/29/20 05:52 Hemoglobin C Crystals Not Reportable 11/29/20 05:52 Schistocytes Not Reportable 11/29/20 05:52 Malaria parasites Not Reportable 11/29/20 05:52 Jones Bodies Not Reportable 11/29/20 05:52 Hem Pathologist Commnt No 11/29/20 05:52 PT 11.5 Sec. (12.2-14.9) L 11/11/20 09:02 INR 0.86 (0.87-1.13) L 11/11/20 09:02 APTT 25.5 Sec. (24.2-36.6) 11/11/20 09:02 Thrombin Time 17.0 Sec. (15.1-19.6) 11/11/20 09:02 ABG pH 7.499 (7.320-7.450) H 11/17/20 11:40 POC ABG pCO2 36.3 mmHg (32.0-48.0) 11/17/20 11:40 ABG pCO2 33.9 mm Hg 11/11/20 10:45 POC ABG pO2 140.8 mmHg (83-108) H 11/17/20 11:40 ABG pO2 222.2 mm Hg (80.0-90.0) H 11/11/20 10:45 POC ABG HCO3 27.6 11/17/20 11:40 ABG HCO3 24.9 mmol/L (20.0-26.0) 11/11/20 10:45 ABG O2 Saturation 98.1 (0-100) 11/17/20 11:40 ABG O2 Content 19.4 (0.0-44) 11/11/20 10:45 POC ABG Base Excess 4.4 11/17/20 11:40 ABG Base Excess 1.9 mmol/L (-2.0-3.0) 11/11/20 10:45 ABG Hemoglobin 11.8 (12.0-17.5) L 11/17/20 11:40 ABG Oxyhemoglobin 97.4 (94-98) 11/17/20 11:40 ABG Carboxyhemoglobin 0.6 % (0.0-5.0) 11/11/20 10:45 ABG Methemoglobin 0.3 (0.0-1.5) 11/17/20 11:40 ABG Sodium 135.1 mmol/L (136.0-145.0) L 11/17/20 11:40 ABG Potassium 4.2 mmol/L (3.40-4.50) 11/17/20 11:40 ABG Chloride 102.0 mmol/L (98-107) 11/17/20 11:40 ABG Glucose 110 mg/dL (65-95) H 11/17/20 11:40 Oxyhemoglobin 98.5 % (95.0-99.0) 11/11/20 10:45 Carboxyhemoglobin 0.4 (0.5-1.5) L 11/17/20 11:40 FiO2 21 % 11/11/20 10:45 FiO2 % 30 11/17/20 11:40 Sodium 136 mmol/L (137-145) L D 12/04/20 04:34 Potassium 4.3 mmol/L (3.6-5.0) 12/04/20 04:34 Chloride 98.5 mmol/L (98-107) 12/04/20 04:34 Carbon Dioxide 30 mmol/L (22-30) 12/04/20 04:34 Anion Gap 12 mmol/L 12/04/20 04:34 BUN 26 mg/dL (9-20) H 12/04/20 04:34 Creatinine 0.6 mg/dL (0.8-1.3) L 12/04/20 04:34 Estimated GFR > 60 ml/min 12/04/20 04:34 BUN/Creatinine Ratio 43 % 12/04/20 04:34 Glucose 128 mg/dL (75-100) H 12/04/20 04:34 POC Glucose 111 mg/dL (70-105) H 12/04/20 22:59 Hemoglobin A1c 5.4 % (4-6) 11/12/20 07:26 Osmolality 274 Mosm/kg 11/29/20 13:08 Uric Acid 1.7 mg/dL (3.5-7.6) L 11/29/20 13:08 Calcium 9.4 mg/dL (8.4-10.2) 12/04/20 04:34 Magnesium 2.00 mg/dL (1.7-2.3) 11/11/20 09:02 Total Bilirubin 0.40 mg/dL (0.1-1.2) 11/29/20 05:52 AST 42 units/L (5-40) H 11/29/20 05:52 ALT 30 units/L (7-56) 11/29/20 05:52 Alkaline Phosphatase 156 units/L (35-129) H 11/29/20 05:52 Ammonia 29.0 umol/L (25-60) 11/12/20 08:47 Total Creatine Kinase 169 units/L (55-170) 11/11/20 09:02 CK-MB (CK-2) 6.6 ng/mL (0.0-4.0) H 11/11/20 09:02 CK-MB (CK-2) Rel Index 3.9 (0-4) 11/11/20 09:02 Troponin T < 0.010 ng/mL (0.00-0.029) 11/11/20 09:02 Total Protein 7.8 g/dL (6.3-8.2) 11/29/20 05:52 Albumin 3.2 g/dL (3.9-5) L 11/29/20 05:52 Albumin/Globulin Ratio 0.7 % 11/29/20 05:52 TSH 5.610 mlU/mL (0.270-4.200) H 11/29/20 05:52 Free T4 1.24 ng/dL (0.76-1.46) 11/29/20 10:31 Total Cortisol 25.5 mcg/dL () 11/29/20 05:52 Arterial Blood Glucose 110 mg/dL (65-95) H 11/17/20 11:40 Arterial Blood Ionized Calcium 4.9 mg/dL (4.6-5.3) 11/17/20 11:40 Urine Color Jennifer (Yellow) 12/05/20 06:20 Urine Turbidity Slightly-cloudy (Clear) 12/05/20 06:20 Urine pH 7.0 (5.0-7.0) 12/05/20 06:20 Ur Specific Greer 1.025 (1.003-1.030) 12/05/20 06:20 Urine Protein 30 mg/dl mg/dL (Negative) 12/05/20 06:20 Urine Glucose (UA) Neg mg/dL (Negative) 12/05/20 06:20 Urine Ketones Neg mg/dL (Negative) 12/05/20 06:20 Urine Blood Neg (Negative) 12/05/20 06:20 Urine Nitrite Neg (Negative) 12/05/20 06:20 Urine Bilirubin Neg (Negative) 12/05/20 06:20 Urine Urobilinogen 4.0 mg/dL (<2.0) 12/05/20 06:20 Ur Leukocyte Esterase Sm (Negative) 12/05/20 06:20 Urine WBC (Auto) 13.0 /HPF (0.0-6.0) H 12/05/20 06:20 Urine RBC (Auto) 2.0 /HPF (0.0-6.0) 12/05/20 06:20 U Epithel Cells (Auto) 2.0 /HPF (0-13.0) 12/05/20 06:20 Urine Bacteria (Auto) 1+ /HPF (Negative) 12/05/20 06:20 Urine Mucus Few /HPF 12/05/20 06:20 Urine Osmolality 610 Mosm/kg 11/29/20 11:09 Urine Opiates Screen Negative 11/11/20 20:27 Urine Methadone Screen Negative 11/11/20 20:27 Ur Barbiturates Screen Positive 11/11/20 20:27 Ur Phencyclidine Scrn Negative 11/11/20 20:27 Ur Amphetamines Screen Negative 11/11/20 20:27 Phenobarbital 4.3 ug/mL (15.0-40.0) L 11/12/20 08:47 U Benzodiazepines Scrn Negative 11/11/20 20:27 Urine Cocaine Screen Negative 11/11/20 20:27 U Marijuana (THC) Screen Negative 11/11/20 20:27 Drugs of Abuse Note Disclamer 11/11/20 20:27 Plasma/Serum Alcohol < 0.01 % (0-0.07) 11/11/20 09:02 Coronavirus (PCR) Negative (Negative) 12/02/20 Unknown [place]/IV: Voiding Method Condom Catheter Active Medications - Current Medications Current Medications: Generic Name Dose Route Start Last Admin Trade Name Freq PRN Reason Stop Dose Admin Acetaminophen 650 mg 11/11/20 22:58 Acetaminophen 325 Mg Tab PO Q4H PRN Pain MILD(1-3)/Fever >100.5/BAR Albuterol 2.5 mg 11/11/20 23:18 Albuterol 2.5 Mg/3 Ml Nebu IH Q3HRT PRN Wheezing Lipase/Protease/Amylase 1 each 11/12/20 12:00 Lipase 10,500/Protease 25,000/Amylase 43,750 (Units) Dr Rangel FEEDTUBE PRN PRN For Clogged Feeding Tube Dextrose 50 ml 11/11/20 22:11 11/17/20 23:29 Dextrose 50% In Water (25gm) 50 Ml Syringe IV 10 ml ONCE PRN Administration Hypoglycemia Protocol Enoxaparin Sodium 40 mg 11/12/20 22:00 12/04/20 21:49 Enoxaparin 40 Mg/0.4 Ml Inj SUB-Q 40 mg QDAY@2200 KIRK Administration Protocol Folic Acid 1 mg 11/16/20 10:00 12/04/20 09:32 Folic Acid 1 Mg Tab PO 1 mg DAILY KIRK Administration Hydralazine HCl 10 mg 11/12/20 10:30 11/14/20 07:30 Hydralazine 20 Mg/1 Ml Inj IV 10 mg Q4H PRN Administration Hypertension Hydrophilic Ointment 1 applic 11/11/20 09:14 Lip Therapy Vaseline TP Q2HR PRN Dry Lips Cefepime HCl 1 gm in 100 mls @ 200 mls/hr 12/05/20 09:00 Cefepime/Ns 1 Gm/100 Ml IV 12/08/20 08:59 Q8H [facility] Protocol Insulin Human Regular 0 units 11/12/20 18:00 12/05/20 07:02 Insulin Regular, Human 100 Units/1 Ml SUB-Q Not Given Q6H [facility] Protocol Lansoprazole 30 mg 11/24/20 10:00 12/04/20 09:32 Lansoprazole 30 Mg Solutab FEEDTUBE 30 mg QDAY KIRK Administration Levetiracetam 1,000 mg 11/24/20 10:00 12/04/20 21:50 Levetiracetam 500 Mg/5 Ml Oral Liqd FEEDTUBE 1,000 mg BID KIRK Administration Metoclopramide HCl 10 mg 11/11/20 22:58 Metoclopramide 10 Mg/2 Ml Inj IV Q6H PRN Nausea And Vomiting Multi-Ingred Cream/Lotion/Oil/Oint 1 applic 11/11/20 09:14 Mineral Oil/Petrolatum, White Ophth Oint 3.5 Gm OU Q4HR PRN Dry Eye(s) Multivitamins 1 each 11/13/20 00:00 12/04/20 23:18 Multivitamins ,Therapeutic Tab PO 1 each Q24H KIRK Administration Naloxone HCl 2 mg 11/11/20 08:33 Naloxone 0.4 Mg/1 Ml Inj IV Q2MIN PRN Res Rate </= 8 or 02 SAT < 92% Ondansetron HCl 4 mg 11/11/20 22:58 Ondansetron 4 Mg/2 Ml Inj IV Q3H PRN Nausea And Vomiting Phenobarbital 15 mg 11/11/20 23:45 12/04/20 21:49 Phenobarbital 15 Mg Tab PO 15 mg BID KIRK Administration Simple Syrup 15 ml 11/12/20 12:00 Simple Syrup 15 Ml FEEDTUBE PRN PRN Hypoglycemia Simple Syrup 30 ml 11/12/20 12:00 Simple Syrup 15 Ml FEEDTUBE PRN PRN Hypoglycemia Sodium Bicarbonate 325 mg 11/12/20 12:00 Sodium Bicarbonate 325 Mg Tab FEEDTUBE PRN PRN For Clogged Feeding Tube Sodium Chloride 10 ml 11/11/20 23:00 12/04/20 21:50 Sodium Chloride 0.9% 10 Ml Flush Syringe IV 10 ml BID KIRK Administration Sodium Chloride 10 ml 11/11/20 22:58 Sodium Chloride 0.9% 10 Ml Flush Syringe IV PRN PRN LINE FLUSH Sodium Chloride 2 gm 11/30/20 22:23 12/04/20 21:49 Sodium Chloride 1 Gm Tab PO 2 gm TID KIRK Administration Thiamine HCl 100 mg 11/16/20 10:00 12/04/20 09:32 Thiamine 100 Mg Tab PO 100 mg QDAY KIRK Administration Nutrition/Malnutrition Assess - Dietary Evaluation Nutrition/Malnutrition Findings: Nutrition Notes Start: 11/12/20 08:26 Freq: Status: Active Protocol: Document 12/02/20 13:55 JOHANA (Rec: 12/02/20 14:00 JOHANA [id number]) Nutrition Notes Initial or Follow up Brief Note Current Diet TF - Jevity 1.2 at 60ml/hr Labs/Tests Na 133 (improving) Height 5 ft 9 in Weight 58.4 kg Jane [place] Body Weight (kg) 72.72 BMI 19.0 Subjective/Other Information Pt tolerating TF at goal rate. He is awaiting placement. Percent of energy/protein needs met: 100% energy/pro Is patient on ventilator? No Is Patient Ambulatory and/or Out of Bed No REE-(Hunt-St. Jeor-confined to bed) 5078.062 Calculation Used for Recommendations Hunt-St Jeor Additional Notes Pro needs 1.2-1.5g/k-88g/ day Fluid needs 1ml/kcal Nutrition Intervention Follow-Up By: 12/09/20 Additional Comments F/U: stable TF, wt, Na lab, water flushes
[2020-12-05 09:42] LABS: BUN/Creatinine Ratio 43; Blood Urea Nitrogen 26 mg/dL (9-20); Hemolysis Index 1
[2020-12-05] MEDS: CEFEPIME/NS 1 GM/100 ML 1 GM/100 ML BAG IV SCH ×2 (10:03→17:56)
[2020-12-05] MEDS: FOLIC ACID 1 MG TAB PO SCH (10:03)
[2020-12-05] MEDS: THIAMINE 100 MG TAB PO SCH (10:03)
[2020-12-05] MEDS: PHENobarbital 15 MG TAB PO SCH ×2 (10:03→22:13)
[2020-12-05] MEDS: LANSOPRAZOLE 30 MG SOLUTAB FEEDTUBE SCH (10:03)
[2020-12-05] MEDS: SODIUM CHLORIDE 1 GM TAB PO SCH ×3 (10:03→22:14)
[2020-12-05] MEDS: levETIRAcetam 500 MG/5 ML ORAL LIQD FEEDTUBE SCH ×2 (10:03→22:14)
--- NOTE | 2020-12-05 10:23 | Progress Note ---
Assessment and Plan 1. 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 Normal Cortisol level. Tolvaptan: /30(15 mg), 4/2(15 mg), 4/4 (15 mg). Continue Salt tablets. Monitor Sodium level. 2. Acute hypoxic respiratory failure: Now extubated. NC oxygen as needed. 3. Acute metabolic encephalopathy: MRI brain showed chronic changes. Monitor. 4. Seizure disorder: Continue antiseizure medications. 5 SIRS: COVID-19 test negative. Monitor. 6. 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 7. Dysphagia: S/p PEG placement. Subjective: Patient was seen and examined at the bedside. Objective: General appearance: well-developed, appears stated age, no distress noted HEENT: ATNC Neck: trachea midline Respiratory: ctab Heart: regular, S1S2, no murmur Gastrointestinal: soft, normoactive bowel sounds, not tender, PEG tube noted Integumentary: no rash, warm and dry Ext: no edema Neurologic: opens eyes, aphasic, not following any command Subjective Date of service: 12/05/20 Principal diagnosis: Neurogenic Dysphagia Objective - Lab 11/29/20 05:52 12/05/20 07:53 Most recent lab results ABG pH 7.499 (7.320-7.450) H 11/17/20 11:40 ABG pCO2 33.9 mm Hg 11/11/20 10:45 ABG pO2 222.2 mm Hg (80.0-90.0) H 11/11/20 10:45 ABG HCO3 24.9 mmol/L (20.0-26.0) 11/11/20 10:45 ABG O2 Saturation 98.1 (0-100) 11/17/20 11:40 Calcium 9.0 mg/dL (8.4-10.2) 12/05/20 07:53 Magnesium 2.00 mg/dL (1.7-2.3) 11/11/20 09:02 Medications & Allergies - Medications Allergies/Adverse Reactions: Allergies No Known Allergies Allergy (Verified 02/24/18 09:21) Home Medications: Home Medications Medication Instructions Recorded Confirmed Last Taken Type PHENobarbitaL [PHENobarbital] 15 mg PO BID 30 Days #60 tablet 05/30/20 11/12/20 Unknown Rx levETIRAcetam [Keppra TAB] 500 mg PO BID #60 tablet 05/30/20 11/23/20 Unknown Rx Vitamin B-1 100 mg PO DAILY 08/12/20 11/12/20 Unknown History levETIRAcetam [Keppra TAB] 1,000 mg PO BID 30 Days #60 tab 08/12/20 11/23/20 Unknown Rx levETIRAcetam [Keppra TAB] 1,000 mg PO BID 90 Days #180 tab 10/01/20 11/23/20 Unknown Rx haloperidoL [Haloperidol] 5 mg PO ONCE 11/12/20 11/12/20 Unknown History Active Medications: Generic Name Dose Route Start Last Admin Trade Name Freq PRN Reason Stop Dose Admin Acetaminophen 650 mg 11/11/20 22:58 Acetaminophen 325 Mg Tab PO Q4H PRN Pain MILD(1-3)/Fever >100.5/BAR Albuterol 2.5 mg 11/11/20 23:18 Albuterol 2.5 Mg/3 Ml Nebu IH Q3HRT PRN Wheezing Lipase/Protease/Amylase 1 each 11/12/20 12:00 Lipase 10,500/Protease 25,000/Amylase 43,750 (Units) Dr Rangel FEEDTUBE PRN PRN For Clogged Feeding Tube Dextrose 50 ml 11/11/20 22:11 11/17/20 23:29 Dextrose 50% In Water (25gm) 50 Ml Syringe IV 10 ml ONCE PRN Administration Hypoglycemia Protocol Enoxaparin Sodium 40 mg 11/12/20 22:00 12/04/20 21:49 Enoxaparin 40 Mg/0.4 Ml Inj SUB-Q 40 mg QDAY@2200 KIRK Administration Protocol Folic Acid 1 mg 11/16/20 10:00 12/05/20 10:03 Folic Acid 1 Mg Tab PO 1 mg DAILY KIRK Administration Hydralazine HCl 10 mg 11/12/20 10:30 11/14/20 07:30 Hydralazine 20 Mg/1 Ml Inj IV 10 mg Q4H PRN Administration Hypertension Hydrophilic Ointment 1 applic 11/11/20 09:14 Lip Therapy Vaseline TP Q2HR PRN Dry Lips Cefepime HCl 1 gm in 100 mls @ 200 mls/hr 12/05/20 09:00 12/05/20 10:03 Cefepime/Ns 1 Gm/100 Ml IV 12/08/20 08:59 200 mls/hr Q8H KIRK Administration Protocol Insulin Human Regular 0 units 11/12/20 18:00 12/05/20 07:02 Insulin Regular, Human 100 Units/1 Ml SUB-Q Not Given Q6H [facility] Protocol Lansoprazole 30 mg 11/24/20 10:00 12/05/20 10:03 Lansoprazole 30 Mg Solutab FEEDTUBE 30 mg QDAY KIRK Administration Levetiracetam 1,000 mg 11/24/20 10:00 12/05/20 10:03 Levetiracetam 500 Mg/5 Ml Oral Liqd FEEDTUBE 1,000 mg BID KIRK Administration Metoclopramide HCl 10 mg 11/11/20 22:58 Metoclopramide 10 Mg/2 Ml Inj IV Q6H PRN Nausea And Vomiting Multi-Ingred Cream/Lotion/Oil/Oint 1 applic 11/11/20 09:14 Mineral Oil/Petrolatum, White Ophth Oint 3.5 Gm OU Q4HR PRN Dry Eye(s) Multivitamins 1 each 11/13/20 00:00 12/04/20 23:18 Multivitamins ,Therapeutic Tab PO 1 each Q24H KIRK Administration Naloxone HCl 2 mg 11/11/20 08:33 Naloxone 0.4 Mg/1 Ml Inj IV Q2MIN PRN Res Rate </= 8 or 02 SAT < 92% Ondansetron HCl 4 mg 11/11/20 22:58 Ondansetron 4 Mg/2 Ml Inj IV Q3H PRN Nausea And Vomiting Phenobarbital 15 mg 11/11/20 23:45 12/05/20 10:03 Phenobarbital 15 Mg Tab PO 15 mg BID KIRK Administration Simple Syrup 15 ml 11/12/20 12:00 Simple Syrup 15 Ml FEEDTUBE PRN PRN Hypoglycemia Simple Syrup 30 ml 11/12/20 12:00 Simple Syrup 15 Ml FEEDTUBE PRN PRN Hypoglycemia Sodium Bicarbonate 325 mg 11/12/20 12:00 Sodium Bicarbonate 325 Mg Tab FEEDTUBE PRN PRN For Clogged Feeding Tube Sodium Chloride 10 ml 11/11/20 23:00 12/05/20 10:03 Sodium Chloride 0.9% 10 Ml Flush Syringe IV 10 ml BID KIRK Administration Sodium Chloride 10 ml 11/11/20 22:58 Sodium Chloride 0.9% 10 Ml Flush Syringe IV PRN PRN LINE FLUSH Sodium Chloride 2 gm 11/30/20 22:23 12/05/20 10:03 Sodium Chloride 1 Gm Tab PO 2 gm TID KIRK Administration Thiamine HCl 100 mg 11/16/20 10:00 12/05/20 10:03 Thiamine 100 Mg Tab PO 100 mg QDAY KIRK Administration
[2020-12-05] MEDS ORDERED: TOLVAPTAN 15 MG TAB PO ONE (12:00)
[2020-12-05] MEDS: ENOXAPARIN 40 MG/0.4 ML INJ SUB-Q SCH (22:14)
[2020-12-06] MEDS: MULTIVITAMINS ,THERAPEUTIC TAB PO SCH ×2 (00:30→23:12)
[2020-12-06] MEDS: INSULIN REGULAR, HUMAN 100 UNITS/1 ML SUB-Q SCH ×4 (00:30→17:06)
[2020-12-06] MEDS: CEFEPIME/NS 1 GM/100 ML 1 GM/100 ML BAG IV SCH ×3 (01:44→16:51)
[2020-12-06] MEDS: LANSOPRAZOLE 30 MG SOLUTAB FEEDTUBE SCH (10:07)
[2020-12-06] MEDS: FOLIC ACID 1 MG TAB PO SCH (10:07)
[2020-12-06] MEDS: levETIRAcetam 500 MG/5 ML ORAL LIQD FEEDTUBE SCH ×2 (10:07→22:10)
[2020-12-06] MEDS: SODIUM CHLORIDE 1 GM TAB PO SCH ×3 (10:07→22:10)
[2020-12-06] MEDS: PHENobarbital 15 MG TAB PO SCH ×2 (10:07→22:11)
[2020-12-06] MEDS: THIAMINE 100 MG TAB PO SCH (10:08)
[2020-12-06 10:10] LABS: Hematocrit 37.2 % (35.5-45.6); Hemoglobin 12.5 gm/dl (11.8-15.2); Mean Corpuscular HGB Conc 34 % (32-34); Mean Corpuscular Volume 84 fl (84-94); Platelet Count 428 K/mm3 (140-440); Red Blood Count 4.44 M/mm3 (3.65-5.03); Red Cell Distribution Width 15.3 % (13.2-15.2)
[2020-12-06 10:45] LABS: Blood Urea Nitrogen 22 mg/dL (9-20); Calcium 8.9 mg/dL (8.4-10.2); Hemolysis Index 4
[2020-12-06 10:46] LABS: BUN/Creatinine Ratio 37
--- NOTE | 2020-12-06 12:11 | Progress Note ---
Assessment and Plan Assessment and plan: COVID-19 test negative x 2 [ 11/12/2020, 11/23/2020] --Acute hypoxic respiratory failure requiring intubation Now extubated, Improved. Now on 2-1/2 L of oxygen Home O2 evaluation at discharge --Acute toxic metabolic encephalopathy Multifactorial, due to seizures, SIRS, hyponatremia, abnormal thyroid functions Unknown baseline, treat the underlying cause Has no ongoing infective process CT head ,MRI brain is negative Continue supportive care --History of seizure disorder; Seizure precautions ,continue antiepileptic medications No new episodes of seizures, cannot drive CT head and brain MRI showed no etiology for seizure --SIRS Etiology unknown-urinalysis negative, chest x-ray also negative COVID-19 test negative, supportive care antibiotics DC'd --Needs ENT as outpatient for evaluation of upper airway. He has no carcinoma as written in previous notes Needs further evaluation of liver lesion with MRI as outpatient Also needs to follow up with pulmonary in the office --Dysphagia; s/p PEG placement, continue PEG care PEG feeds per protocol, aspiration precautions --Hyponatremia; Sodium today 129, continue replacement therapy Closely monitor electrolytes --Abnormal low TSH; Free T4 wnl -- Hypokalemia; No resolved --DVT prophylaxis-SCDs, Lovenox --GI prophylaxis-PPIs --Full CODE STATUS; --Disposition-Pending placement Brief history This is a 60-year-old male with seizure disorder current alcohol and tobacco abuse presents to the hospital on 11/11 after being found unresponsive. On arrival of EMS patient was found to be hypoglycemic and given IV dextrose after which he recovered and refused further care. EMS was called again by family after the patient was found unresponsive and was given Narcan with no change. Patient was noted to have seizure activity and given 7 mg IV Ativan total including 3 from EMS. Patient was loaded with Keppra 2 g and was intubated for airway protection. Patient was found to have metabolic acidosis and hyp oglycemia on BMP. Patient was found to be hypothermic and hypertensive in the emergency department. Patient's UDS was positive for barbiturates. Patient was admitted to the hospital service for further work-up with consults to [facility] and neurology. 11/12. Patient remains intubated. On Keppra and phenobarbital. Neurology evaluation appreciated. EEG ordered. May need transfer to tertiary care for continuous EEG pending EEG results. 11/13. Remains intubated and on antiseizure medications. EEG has been performed but results are pending. Neurology on board 11/14. Remains intubated and on antiseizure medications. EEG has been performed but results are pending. Neurology on board 11/15: EEG is consistent with significant encephalopathy and does not rule out the possibility of epilepsy, patient remains on mechanical ventilation with minimal vent settings. No acute events reported overnight. 11/16: No acute events reported overnight, patient opens eyes spontaneously and withdraws to pain bilateral lower extremities. At the time my examination patient was on CMV 450/18/64/0.30 and has been started on a CPAP trial subsequently. No evidence of generalized seizures noted. Patient is a lui of the state 11/17: Patient was extubated today per [facility], no acute events reported overnight. Patient has a right sided gaze during my examination and was on CPAP / at 30% and he opens his eyes spontaneously. He does withdraw bilateral lower extremities to pain. His Keppra was decreased yesterday. ST evaluation pending 11/18: Follow-up EEG reading. Patient currently off sedation. Nursing to place Dobbhoff tube for feeding. Speech therapy to continue swallow evaluation. No new seizure activity. Continue phenobarbital and Keppra. Seizure precautions. Transfer to [facility] today. 11/19: Dobbhoff tube with removal difficulty yesterday. 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 CT scan of the chest revealed pulmonary nodule and lesion in the liver suggestive of metastatic disease. GI consultation pending. Patient was electively intubated yesterday for airway protection. Extubation today per lmonary 11/20: Await speech therapy evaluation. Patient will likely need PEG tube placement. Consult GI for further evaluation. Oncology consultation for likely metastatic disease. 11/21: Await GI consultation. Appreciate oncology evaluation. 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 Check MRI brain to rule out brain metastasis. Poor prognosis. 11/22: GI recommends tissue diagnosis either with ENT involvement and evaluation of epiglottis mass with biopsy vs biopsy of the liver lesion. Follow-up with case management for obtaining consent for possible PEG tube placement 11/23. Brain MRI showed no brain metastasis. Plan for EGD as per GI. Patient will need possible ENT evaluation of mass with biopsy or biopsy of the liver lesion. 11/24. EGD shows no mass in the oropharynx. PEG was placed during EGD and patient has been started on tube feeds. He will need placement to a shelter facility and has been accepted at some facilities. COVID-19 test is negative. 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 11/25 -11/27. Sodium trending down. Check osmolality, urine electrolytes. Continue salt tablets. 11/28. Sodium is till trending down. Will check cortisol and TSH. 11/29. Sodium is still <130 despite being on salt tablets and NS. Will consult nephrology 11/30. Nephrology on board - ordered tolvaptan today as sodium is still low. Will continue to trend Na. 12/01. Sodium better. Appreciate nephrology recs. Awaiting placement 12/02. His sodium has improved. Awaiting placement. Has no family. Patient is a lui of the [facility]. He will need ENT evaluation with laryngoscopy at discharge. 12/03; potassium sodium continues to be low, continue current management nephrology following, awaiting placement 12/04: Awaiting placement. No issues noted overnight, Hypokalemia resolved. Monitor for aspiration precautions. Continue current management with nephrology 12/05: Overall poor prognosis considering his overall medical condition. He still very lethargic very drowsy and somnolent. Urinalysis yesterday reveals urinary tract infection. Will start patient on empiric antibiotics while awaiting cultures. Strongly recommend that hospice should be considered for this patient 12/06: Unfortunately remains chronically ill. I did discuss with Mr. Appiah the patient care provider. I have also advised him of his current condition and that this patient will benefit from hospice or at the very least palliative care. No clinical improvement patient opens his eyes on noxious stimuli but no other movement. Continue wound prevention measures. History Interval history: Patient seen and examined he is awake but not interactive he does have some resistance to movement of extremities. He grimaces to noxious stimuli. No adverse event noted overnight Hospitalist Physical - Physical exam Narrative exam: General appearance: Present: no acute distress, cachectic, disheveled, awake but not interactive opens eyes very lethargic - EENT Eyes: Present: PERRL, EOM intact - Neck Neck: Present: supple, normal ROM - Respiratory Respiratory effort: normal Respiratory: bilateral: diminished, negative: rales, rhonchi, wheezing - Cardiovascular Rhythm: regular Heart Sounds: Present: S1 & S2 - Extremities Extremities: no ischemia, No edema Extremity abnormal: edema, cyanosis - Abdominal General gastrointestinal: soft, non-tender, non-distended, normal bowel sounds - Integumentary Integumentary: Present: clear, warm - Psychiatric Psychiatric: Flat affect - Neurologic Neurologic: moves all extremities with stimuli - Constitutional Vitals: Temp Pulse Resp BP Pulse Ox 99.3 F 76 20 129/69 98 12/06/20 05:43 12/06/20 05:43 12/06/20 05:43 12/06/20 05:43 12/06/20 05:43 General appearance: Present: no acute distress, cachectic, disheveled, other (unresponsive) HEART Score - HEART Score Troponin: Troponin T < 0.010 ng/mL (0.00-0.029) 11/11/20 09:02 Results - Labs CBC & Chem 7: 12/06/20 08:33 12/06/20 08:33 Labs: Laboratory Last Values WBC 12.8 K/mm3 (4.5-11.0) H 12/06/20 08:33 RBC 4.44 M/mm3 (3.65-5.03) 12/06/20 08:33 Hgb 12.5 gm/dl (11.8-15.2) 12/06/20 08:33 Hct 37.2 % (35.5-45.6) 12/06/20 08:33 MCV 84 fl (84-94) 12/06/20 08:33 MCH 28 pg (28-32) 12/06/20 08:33 MCHC 34 % (32-34) 12/06/20 08:33 RDW 15.3 % (13.2-15.2) H 12/06/20 08:33 Plt Count 428 K/mm3 (140-440) 12/06/20 08:33 Lymph % (Auto) 18.3 % (13.4-35.0) 11/26/20 06:23 [place] % (Auto) 9.8 % (0.0-7.3) H 11/26/20 06:23 Eos % (Auto) 1.1 % (0.0-4.3) 11/26/20 06:23 Baso % (Auto) 0.7 % (0.0-1.8) 11/26/20 06:23 Lymph # (Auto) 1.7 K/mm3 (1.2-5.4) 11/26/20 06:23 [place] # (Auto) 0.9 K/mm3 (0.0-0.8) H 11/26/20 06:23 Eos # (Auto) 0.1 K/mm3 (0.0-0.4) 11/26/20 06:23 Baso # (Auto) 0.1 K/mm3 (0.0-0.1) 11/26/20 06:23 Add Manual Diff Complete 11/29/20 05:52 Total Counted 100 11/29/20 05:52 Seg Neutrophils % 70.1 % (40.0-70.0) H 11/26/20 06:23 Seg Neuts % (Manual) 76.0 % (40.0-70.0) H 11/29/20 05:52 Lymphocytes % (Manual) 10.0 % (13.4-35.0) L 11/29/20 05:52 Reactive Lymphs % (Man) 4.0 % 11/27/20 05:50 Monocytes % (Manual) 10.0 % (0.0-7.3) H 11/29/20 05:52 Eosinophils % (Manual) 3.0 % (0.0-4.3) 11/29/20 05:52 Metamyelocytes % 1.0 % 11/29/20 05:52 Nucleated RBC % Not Reportable 11/29/20 05:52 Seg Neutrophils # 9.5 K/mm3 (1.8-7.7) H 11/26/20 06:23 Seg Neutrophils # Man 7.4 K/mm3 (1.8-7.7) 11/29/20 05:52 Band Neutrophils # 0.0 K/mm3 11/29/20 05:52 Lymphocytes # (Manual) 1.0 K/mm3 (1.2-5.4) L 11/29/20 05:52 Abs React Lymphs (Man) 0.0 K/mm3 11/29/20 05:52 Monocytes # (Manual) 1.0 K/mm3 (0.0-0.8) H 11/29/20 05:52 Eosinophils # (Manual) 0.3 K/mm3 (0.0-0.4) 11/29/20 05:52 Basophils # (Manual) 0.0 K/mm3 (0.0-0.1) 11/29/20 05:52 Metamyelocytes # 0.1 K/mm3 11/29/20 05:52 Myelocytes # 0.0 K/mm3 11/29/20 05:52 Promyelocytes # 0.0 K/mm3 11/29/20 05:52 Blast Cells # 0.0 K/mm3 11/29/20 05:52 WBC Morphology Not Reportable 11/29/20 05:52 Hypersegmented Neuts Not Reportable 11/29/20 05:52 Hyposegmented Neuts Not Reportable 11/29/20 05:52 Hypogranular Neuts Not Reportable 11/29/20 05:52 Smudge Cells Not Reportable 11/29/20 05:52 Toxic Granulation Not Reportable 11/29/20 05:52 Toxic Vacuolation Not Reportable 11/29/20 05:52 Dohle Bodies Not Reportable 11/29/20 05:52 Pelger-Huet Anomaly Not Reportable 11/29/20 05:52 Fercho Rods Not Reportable 11/29/20 05:52 Platelet Estimate Consistent w auto 11/29/20 05:52 Clumped Platelets Not Reportable 11/29/20 05:52 Plt Clumps, EDTA Not Reportable 11/29/20 05:52 Large Platelets Not Reportable 11/29/20 05:52 Giant Platelets Not Reportable 11/29/20 05:52 Platelet Satelliting Not Reportable 11/29/20 05:52 Plt Morphology Comment Not Reportable 11/29/20 05:52 RBC Morphology Not Reportable 11/29/20 05:52 Dimorphic RBCs Not Reportable 11/29/20 05:52 Polychromasia Not Reportable 11/29/20 05:52 Hypochromasia Not Reportable 11/29/20 05:52 Poikilocytosis Not Reportable 11/29/20 05:52 Anisocytosis Few 11/29/20 05:52 Microcytosis Not Reportable 11/29/20 05:52 Macrocytosis Not Reportable 11/29/20 05:52 Spherocytes Not Reportable 11/29/20 05:52 Pappenheimer Bodies Not Reportable 11/29/20 05:52 Sickle Cells Not Reportable 11/29/20 05:52 Target Cells Few 11/29/20 05:52 Tear Drop Cells Not Reportable 11/29/20 05:52 Ovalocytes Not Reportable 11/29/20 05:52 Helmet Cells Not Reportable 11/29/20 05:52 Kim-[place] Plant Bodies Not Reportable 11/29/20 05:52 [place] Rings Not Reportable 11/29/20 05:52 Media Cells Not Reportable 11/29/20 05:52 Bite Cells Not Reportable 11/29/20 05:52 Crenated Cell Not Reportable 11/29/20 05:52 Elliptocytes Not Reportable 11/29/20 05:52 Acanthocytes (Spur) Not Reportable 11/29/20 05:52 Rouleaux Not Reportable 11/29/20 05:52 Hemoglobin C Crystals Not Reportable 11/29/20 05:52 Schistocytes Not Reportable 11/29/20 05:52 Malaria parasites Not Reportable 11/29/20 05:52 Jones Bodies Not Reportable 11/29/20 05:52 Hem Pathologist Commnt No 11/29/20 05:52 PT 11.5 Sec. (12.2-14.9) L 11/11/20 09:02 INR 0.86 (0.87-1.13) L 11/11/20 09:02 APTT 25.5 Sec. (24.2-36.6) 11/11/20 09:02 Thrombin Time 17.0 Sec. (15.1-19.6) 11/11/20 09:02 ABG pH 7.499 (7.320-7.450) H 11/17/20 11:40 POC ABG pCO2 36.3 mmHg (32.0-48.0) 11/17/20 11:40 ABG pCO2 33.9 mm Hg 11/11/20 10:45 POC ABG pO2 140.8 mmHg (83-108) H 11/17/20 11:40 ABG pO2 222.2 mm Hg (80.0-90.0) H 11/11/20 10:45 POC ABG HCO3 27.6 11/17/20 11:40 ABG HCO3 24.9 mmol/L (20.0-26.0) 11/11/20 10:45 ABG O2 Saturation 98.1 (0-100) 11/17/20 11:40 ABG O2 Content 19.4 (0.0-44) 11/11/20 10:45 POC ABG Base Excess 4.4 11/17/20 11:40 ABG Base Excess 1.9 mmol/L (-2.0-3.0) 11/11/20 10:45 ABG Hemoglobin 11.8 (12.0-17.5) L 11/17/20 11:40 ABG Oxyhemoglobin 97.4 (94-98) 11/17/20 11:40 ABG Carboxyhemoglobin 0.6 % (0.0-5.0) 11/11/20 10:45 ABG Methemoglobin 0.3 (0.0-1.5) 11/17/20 11:40 ABG Sodium 135.1 mmol/L (136.0-145.0) L 11/17/20 11:40 ABG Potassium 4.2 mmol/L (3.40-4.50) 11/17/20 11:40 ABG Chloride 102.0 mmol/L (98-107) 11/17/20 11:40 ABG Glucose 110 mg/dL (65-95) H 11/17/20 11:40 Oxyhemoglobin 98.5 % (95.0-99.0) 11/11/20 10:45 Carboxyhemoglobin 0.4 (0.5-1.5) L 11/17/20 11:40 FiO2 21 % 11/11/20 10:45 FiO2 % 30 11/17/20 11:40 Sodium 137 mmol/L (137-145) 12/06/20 08:33 Potassium 4.6 mmol/L (3.6-5.0) 12/06/20 08:33 Chloride 100.1 mmol/L (98-107) 12/06/20 08:33 Carbon Dioxide 29 mmol/L (22-30) 12/06/20 08:33 Anion Gap 13 mmol/L 12/06/20 08:33 BUN 22 mg/dL (9-20) H 12/06/20 08:33 Creatinine 0.6 mg/dL (0.8-1.3) L 12/06/20 08:33 Estimated GFR > 60 ml/min 12/06/20 08:33 BUN/Creatinine Ratio 37 % 12/06/20 08:33 Glucose 101 mg/dL (75-100) H 12/06/20 08:33 POC Glucose 102 mg/dL (70-105) 12/06/20 05:44 Hemoglobin A1c 5.4 % (4-6) 11/12/20 07:26 Osmolality 274 Mosm/kg 11/29/20 13:08 Uric Acid 1.7 mg/dL (3.5-7.6) L 11/29/20 13:08 Calcium 8.9 mg/dL (8.4-10.2) 12/06/20 08:33 Magnesium 2.00 mg/dL (1.7-2.3) 11/11/20 09:02 Total Bilirubin 0.40 mg/dL (0.1-1.2) 11/29/20 05:52 AST 42 units/L (5-40) H 11/29/20 05:52 ALT 30 units/L (7-56) 11/29/20 05:52 Alkaline Phosphatase 156 units/L (35-129) H 11/29/20 05:52 Ammonia 29.0 umol/L (25-60) 11/12/20 08:47 Total Creatine Kinase 169 units/L (55-170) 11/11/20 09:02 CK-MB (CK-2) 6.6 ng/mL (0.0-4.0) H 11/11/20 09:02 CK-MB (CK-2) Rel Index 3.9 (0-4) 11/11/20 09:02 Troponin T < 0.010 ng/mL (0.00-0.029) 11/11/20 09:02 Total Protein 7.8 g/dL (6.3-8.2) 11/29/20 05:52 Albumin 3.2 g/dL (3.9-5) L 11/29/20 05:52 Albumin/Globulin Ratio 0.7 % 11/29/20 05:52 TSH 5.610 mlU/mL (0.270-4.200) H 11/29/20 05:52 Free T4 1.24 ng/dL (0.76-1.46) 11/29/20 10:31 Total Cortisol 25.5 mcg/dL () 11/29/20 05:52 Arterial Blood Glucose 110 mg/dL (65-95) H 11/17/20 11:40 Arterial Blood Ionized Calcium 4.9 mg/dL (4.6-5.3) 11/17/20 11:40 Urine Color Jennifer (Yellow) 12/05/20 06:20 Urine Turbidity Slightly-cloudy (Clear) 12/05/20 06:20 Urine pH 7.0 (5.0-7.0) 12/05/20 06:20 Ur Specific [place] 1.025 (1.003-1.030) 12/05/20 06:20 Urine Protein 30 mg/dl mg/dL (Negative) 12/05/20 06:20 Urine Glucose (UA) Neg mg/dL (Negative) 12/05/20 06:20 Urine Ketones Neg mg/dL (Negative) 12/05/20 06:20 Urine Blood Neg (Negative) 12/05/20 06:20 Urine Nitrite Neg (Negative) 12/05/20 06:20 Urine Bilirubin Neg (Negative) 12/05/20 06:20 Urine Urobilinogen 4.0 mg/dL (<2.0) 12/05/20 06:20 Ur Leukocyte Esterase Sm (Negative) 12/05/20 06:20 Urine WBC (Auto) 13.0 /HPF (0.0-6.0) H 12/05/20 06:20 Urine RBC (Auto) 2.0 /HPF (0.0-6.0) 12/05/20 06:20 U Epithel Cells (Auto) 2.0 /HPF (0-13.0) 12/05/20 06:20 Urine Bacteria (Auto) 1+ /HPF (Negative) 12/05/20 06:20 Urine Mucus Few /HPF 12/05/20 06:20 Urine Osmolality 610 Mosm/kg 11/29/20 11:09 Urine Opiates Screen Negative 11/11/20 20:27 Urine Methadone Screen Negative 11/11/20 20:27 Ur Barbiturates Screen Positive 11/11/20 20:27 Ur Phencyclidine Scrn Negative 11/11/20 20:27 Ur Amphetamines Screen Negative 11/11/20 20:27 Phenobarbital 4.3 ug/mL (15.0-40.0) L 11/12/20 08:47 U Benzodiazepines Scrn Negative 11/11/20 20:27 Urine Cocaine Screen Negative 11/11/20 20:27 U Marijuana (THC) Screen Negative 11/11/20 20:27 Drugs of Abuse Note Disclamer 11/11/20 20:27 Plasma/Serum Alcohol < 0.01 % (0-0.07) 11/11/20 09:02 Coronavirus (PCR) Negative (Negative) 12/02/20 Unknown [place]/IV: Voiding Method Condom Catheter Active Medications - Current Medications Current Medications: Generic Name Dose Route Start Last Admin Trade Name Freq PRN Reason Stop Dose Admin Acetaminophen 650 mg 11/11/20 22:58 Acetaminophen 325 Mg Tab PO Q4H PRN Pain MILD(1-3)/Fever >100.5/BAR Albuterol 2.5 mg 11/11/20 23:18 Albuterol 2.5 Mg/3 Ml Nebu IH Q3HRT PRN Wheezing Lipase/Protease/Amylase 1 each 11/12/20 12:00 Lipase 10,500/Protease 25,000/Amylase 43,750 (Units) Dr Rangel FEEDTUBE PRN PRN For Clogged Feeding Tube Dextrose 50 ml 11/11/20 22:11 11/17/20 23:29 Dextrose 50% In Water (25gm) 50 Ml Syringe IV 10 ml ONCE PRN Administration Hypoglycemia Protocol Enoxaparin Sodium 40 mg 11/12/20 22:00 12/05/20 22:14 Enoxaparin 40 Mg/0.4 Ml Inj SUB-Q 40 mg QDAY@2200 KIRK Administration Protocol Folic Acid 1 mg 11/16/20 10:00 12/06/20 10:07 Folic Acid 1 Mg Tab PO 1 mg DAILY KIRK Administration Hydralazine HCl 10 mg 11/12/20 10:30 11/14/20 07:30 Hydralazine 20 Mg/1 Ml Inj IV 10 mg Q4H PRN Administration Hypertension Hydrophilic Ointment 1 applic 11/11/20 09:14 Lip Therapy Vaseline TP Q2HR PRN Dry Lips Cefepime HCl 1 gm in 100 mls @ 200 mls/hr 12/05/20 09:00 12/06/20 10:06 Cefepime/Ns 1 Gm/100 Ml IV 12/08/20 08:59 200 mls/hr Q8H KIRK Administration Protocol Insulin Human Regular 0 units 11/12/20 18:00 12/06/20 06:19 Insulin Regular, Human 100 Units/1 Ml SUB-Q Not Given Q6H KIRK Protocol Lansoprazole 30 mg 11/24/20 10:00 12/06/20 10:07 Lansoprazole 30 Mg Solutab FEEDTUBE 30 mg QDAY KIRK Administration Levetiracetam 1,000 mg 11/24/20 10:00 12/06/20 10:07 Levetiracetam 500 Mg/5 Ml Oral Liqd FEEDTUBE 1,000 mg BID KIRK Administration Metoclopramide HCl 10 mg 11/11/20 22:58 Metoclopramide 10 Mg/2 Ml Inj IV Q6H PRN Nausea And Vomiting Multi-Ingred Cream/Lotion/Oil/Oint 1 applic 11/11/20 09:14 Mineral Oil/Petrolatum, White Ophth Oint 3.5 Gm OU Q4HR PRN Dry Eye(s) Multivitamins 1 each 11/13/20 00:00 12/06/20 00:30 Multivitamins ,Therapeutic Tab PO 1 each Q24H KIRK Administration Naloxone HCl 2 mg 11/11/20 08:33 Naloxone 0.4 Mg/1 Ml Inj IV Q2MIN PRN Res Rate </= 8 or 02 SAT < 92% Ondansetron HCl 4 mg 11/11/20 22:58 Ondansetron 4 Mg/2 Ml Inj IV Q3H PRN Nausea And Vomiting Phenobarbital 15 mg 11/11/20 23:45 12/06/20 10:07 Phenobarbital 15 Mg Tab PO 15 mg BID KIRK Administration Simple Syrup 15 ml 11/12/20 12:00 Simple Syrup 15 Ml FEEDTUBE PRN PRN Hypoglycemia Simple Syrup 30 ml 11/12/20 12:00 Simple Syrup 15 Ml FEEDTUBE PRN PRN Hypoglycemia Sodium Bicarbonate 325 mg 11/12/20 12:00 Sodium Bicarbonate 325 Mg Tab FEEDTUBE PRN PRN For Clogged Feeding Tube Sodium Chloride 10 ml 11/11/20 23:00 12/06/20 10:08 Sodium Chloride 0.9% 10 Ml Flush Syringe IV 10 ml BID KIRK Administration Sodium Chloride 10 ml 11/11/20 22:58 Sodium Chloride 0.9% 10 Ml Flush Syringe IV PRN PRN LINE FLUSH Sodium Chloride 2 gm 11/30/20 22:23 12/06/20 10:07 Sodium Chloride 1 Gm Tab PO 2 gm TID KIRK Administration Thiamine HCl 100 mg 11/16/20 10:00 12/06/20 10:08 Thiamine 100 Mg Tab PO 100 mg QDAY KIRK Administration Nutrition/Malnutrition Assess - Dietary Evaluation Nutrition/Malnutrition Findings: Nutrition Notes Start: 11/12/20 08:26 Freq: Status: Active Protocol: Document 12/02/20 13:55 JOHANA (Rec: 12/02/20 14:00 JOHANA [id number]) Nutrition Notes Initial or Follow up Brief Note Current Diet TF - Jevity 1.2 at 60ml/hr Labs/Tests Na 133 (improving) Height 5 ft 9 in Weight 58.4 kg [place] Body Weight (kg) 72.72 BMI 19.0 Subjective/Other Information Pt tolerating TF at goal rate. He is awaiting placement. Percent of energy/protein needs met: 100% energy/pro Is patient on ventilator? No Is Patient Ambulatory and/or Out of Bed No REE-([facility]-confined to bed) [phone] Calculation Used for Recommendations [facility] Additional Notes Pro needs 1.2-1.5g/k-88g/ day Fluid needs 1ml/kcal Nutrition Intervention Follow-Up By: 12/09/20 Additional Comments F/U: stable TF, wt, Na lab, water flushes
--- NOTE | 2020-12-06 12:51 | Progress Note ---
Assessment and Plan 1. 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 Normal Cortisol level. Tolvaptan: 3/30(15 mg), 4/2(15 mg), 4/4 (15 mg). Continue Salt tablets. Monitor Sodium level. 2. Acute hypoxic respiratory failure: Now extubated. NC oxygen as needed. 3. Acute metabolic encephalopathy: MRI brain showed chronic changes. Monitor. 4. Seizure disorder: Continue antiseizure medications. 5 SIRS: COVID-19 test negative. Monitor. 6. 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 7. Dysphagia: S/p PEG placement. Subjective: Patient was seen and examined at the bedside. Objective: General appearance: well-developed, appears stated age, no distress noted HEENT: ATNC Neck: trachea midline Respiratory: ctab Heart: regular, S1S2, no murmur Gastrointestinal: soft, normoactive bowel sounds, not tender, PEG tube noted Integumentary: no rash, warm and dry Ext: no edema Neurologic: opens eyes, aphasic, not following any command Subjective Date of service: 12/06/20 Principal diagnosis: Neurogenic Dysphagia Objective - Vital Signs Vital signs: Vital Signs - 12hr 12/06/20 05:43 Temperature 99.3 F Pulse Rate 76 Respiratory 20 Rate Blood Pressure 129/69 O2 Sat by Pulse 98 Oximetry - Lab 12/06/20 08:33 12/06/20 08:33 Most recent lab results ABG pH 7.499 (7.320-7.450) H 11/17/20 11:40 ABG pCO2 33.9 mm Hg 11/11/20 10:45 ABG pO2 222.2 mm Hg (80.0-90.0) H 11/11/20 10:45 ABG HCO3 24.9 mmol/L (20.0-26.0) 11/11/20 10:45 ABG O2 Saturation 98.1 (0-100) 11/17/20 11:40 Calcium 8.9 mg/dL (8.4-10.2) 12/06/20 08:33 Magnesium 2.00 mg/dL (1.7-2.3) 11/11/20 09:02 Medications & Allergies - Medications Allergies/Adverse Reactions: Allergies No Known Allergies Allergy (Verified 06/24/18 09:21) Home Medications: Home Medications Medication Instructions Recorded Confirmed Last Taken Type PHENobarbitaL [PHENobarbital] 15 mg PO BID 30 Days #60 tablet 05/30/20 11/12/20 Unknown Rx levETIRAcetam [Keppra TAB] 500 mg PO BID #60 tablet 05/30/20 11/23/20 Unknown Rx Vitamin B-1 100 mg PO DAILY 08/12/20 11/12/20 Unknown History levETIRAcetam [Keppra TAB] 1,000 mg PO BID 30 Days #60 tab 08/12/20 11/23/20 Unknown Rx levETIRAcetam [Keppra TAB] 1,000 mg PO BID 90 Days #180 tab 10/01/20 11/23/20 Unknown Rx haloperidoL [Haloperidol] 5 mg PO ONCE 11/12/20 11/12/20 Unknown History Active Medications: Generic Name Dose Route Start Last Admin Trade Name Freq PRN Reason Stop Dose Admin Acetaminophen 650 mg 11/11/20 22:58 Acetaminophen 325 Mg Tab PO Q4H PRN Pain MILD(1-3)/Fever >100.5/BAR Albuterol 2.5 mg 11/11/20 23:18 Albuterol 2.5 Mg/3 Ml Nebu IH Q3HRT PRN Wheezing Lipase/Protease/Amylase 1 each 11/12/20 12:00 Lipase 10,500/Protease 25,000/Amylase 43,750 (Units) Dr Rangel FEEDTUBE PRN PRN For Clogged Feeding Tube Dextrose 50 ml 11/11/20 22:11 11/17/20 23:29 Dextrose 50% In Water (25gm) 50 Ml Syringe IV 10 ml ONCE PRN Administration Hypoglycemia Protocol Enoxaparin Sodium 40 mg 11/12/20 22:00 12/05/20 22:14 Enoxaparin 40 Mg/0.4 Ml Inj SUB-Q 40 mg QDAY@2200 KIRK Administration Protocol Folic Acid 1 mg 11/16/20 10:00 12/06/20 10:07 Folic Acid 1 Mg Tab PO 1 mg DAILY KIRK Administration Hydralazine HCl 10 mg 11/12/20 10:30 11/14/20 07:30 Hydralazine 20 Mg/1 Ml Inj IV 10 mg Q4H PRN Administration Hypertension Hydrophilic Ointment 1 applic 11/11/20 09:14 Lip Therapy Vaseline TP Q2HR PRN Dry Lips Cefepime HCl 1 gm in 100 mls @ 200 mls/hr 12/05/20 09:00 12/06/20 10:06 Cefepime/Ns 1 Gm/100 Ml IV 12/08/20 08:59 200 mls/hr Q8H KIRK Administration Protocol Insulin Human Regular 0 units 11/12/20 18:00 12/06/20 12:44 Insulin Regular, Human 100 Units/1 Ml SUB-Q Not Given Q6H KIRK Protocol Lansoprazole 30 mg 11/24/20 10:00 12/06/20 10:07 Lansoprazole 30 Mg Solutab FEEDTUBE 30 mg QDAY KIRK Administration Levetiracetam 1,000 mg 11/24/20 10:00 12/06/20 10:07 Levetiracetam 500 Mg/5 Ml Oral Liqd FEEDTUBE 1,000 mg BID KIRK Administration Metoclopramide HCl 10 mg 11/11/20 22:58 Metoclopramide 10 Mg/2 Ml Inj IV Q6H PRN Nausea And Vomiting Multi-Ingred Cream/Lotion/Oil/Oint 1 applic 11/11/20 09:14 Mineral Oil/Petrolatum, White Ophth Oint 3.5 Gm OU Q4HR PRN Dry Eye(s) Multivitamins 1 each 11/13/20 00:00 12/06/20 00:30 Multivitamins ,Therapeutic Tab PO 1 each Q24H KIRK Administration Naloxone HCl 2 mg 11/11/20 08:33 Naloxone 0.4 Mg/1 Ml Inj IV Q2MIN PRN Res Rate </= 8 or 02 SAT < 92% Ondansetron HCl 4 mg 11/11/20 22:58 Ondansetron 4 Mg/2 Ml Inj IV Q3H PRN Nausea And Vomiting Phenobarbital 15 mg 11/11/20 23:45 12/06/20 10:07 Phenobarbital 15 Mg Tab PO 15 mg BID KIRK Administration Simple Syrup 15 ml 11/12/20 12:00 Simple Syrup 15 Ml FEEDTUBE PRN PRN Hypoglycemia Simple Syrup 30 ml 11/12/20 12:00 Simple Syrup 15 Ml FEEDTUBE PRN PRN Hypoglycemia Sodium Bicarbonate 325 mg 11/12/20 12:00 Sodium Bicarbonate 325 Mg Tab FEEDTUBE PRN PRN For Clogged Feeding Tube Sodium Chloride 10 ml 11/11/20 23:00 12/06/20 10:08 Sodium Chloride 0.9% 10 Ml Flush Syringe IV 10 ml BID KIRK Administration Sodium Chloride 10 ml 11/11/20 22:58 Sodium Chloride 0.9% 10 Ml Flush Syringe IV PRN PRN LINE FLUSH Sodium Chloride 2 gm 11/30/20 22:23 12/06/20 10:07 Sodium Chloride 1 Gm Tab PO 2 gm TID KIRK Administration Thiamine HCl 100 mg 11/16/20 10:00 12/06/20 10:08 Thiamine 100 Mg Tab PO 100 mg QDAY KIRK Administration
[2020-12-06] MEDS: ENOXAPARIN 40 MG/0.4 ML INJ SUB-Q SCH (22:11)
[2020-12-07] MEDS: INSULIN REGULAR, HUMAN 100 UNITS/1 ML SUB-Q SCH ×4 (00:28→21:12)
[2020-12-07] MEDS: CEFEPIME/NS 1 GM/100 ML 1 GM/100 ML BAG IV SCH ×3 (00:49→17:21)
[2020-12-07 06:23] LABS: BUN/Creatinine Ratio 48; Blood Urea Nitrogen 24 mg/dL (9-20); Calcium 8.7 mg/dL (8.4-10.2); Hemolysis Index 3
[2020-12-07] MEDS: SODIUM CHLORIDE 1 GM TAB PO SCH ×3 (09:20→21:13)
[2020-12-07] MEDS: FOLIC ACID 1 MG TAB PO SCH (09:21)
[2020-12-07] MEDS: levETIRAcetam 500 MG/5 ML ORAL LIQD FEEDTUBE SCH ×2 (09:22→21:14)
[2020-12-07] MEDS: PHENobarbital 15 MG TAB PO SCH ×2 (09:22→21:14)
[2020-12-07] MEDS: LANSOPRAZOLE 30 MG SOLUTAB FEEDTUBE SCH (09:23)
[2020-12-07] MEDS: THIAMINE 100 MG TAB PO SCH (09:24)
--- NOTE | 2020-12-07 10:42 | Progress Note ---
Assessment and Plan Assessment and plan: Advance care planning done for 35-minute Mr. Appiah will send the document that needs to be filled out Case management will assist and the doctor can sign if in agreement. Original Note: Assessment and Plan Assessment and plan: COVID-19 test negative x 2 [ 11/12/2020, 11/23/2020] --Acute hypoxic respiratory failure requiring intubation Now extubated, Improved. Now on 2-1/2 L of oxygen Home O2 evaluation at discharge --Acute toxic metabolic encephalopathy Multifactorial, due to seizures, SIRS, hyponatremia, abnormal thyroid functions Unknown baseline, treat the underlying cause Has no ongoing infective process CT head ,MRI brain is negative Continue supportive care --History of seizure disorder; Seizure precautions ,continue antiepileptic medications No new episodes of seizures, cannot drive CT head and brain MRI showed no etiology for seizure --SIRS Etiology unknown-urinalysis negative, chest x-ray also negative COVID-19 test negative, supportive care antibiotics DC'd --Needs ENT as outpatient for evaluation of upper airway. He has no carcinoma as written in previous notes Needs further evaluation of liver lesion with MRI as outpatient Also needs to follow up with pulmonary in the office --Dysphagia; s/p PEG placement, continue PEG care PEG feeds per protocol, aspiration precautions --Hyponatremia; Sodium today 129, continue replacement therapy Closely monitor electrolytes --Abnormal low TSH; Free T4 wnl -- Hypokalemia; No resolved --DVT prophylaxis-SCDs, Lovenox --GI prophylaxis-PPIs --Full CODE STATUS; --Disposition-Pending placement 12/02. His sodium has improved. Awaiting placement. Has no family. Patient is a lui of the community health. He will need ENT evaluation with laryngoscopy at discharge. 12/03; potassium sodium continues to be low, continue current management nephrology following, awaiting placement 12/04: Awaiting placement. No issues noted overnight, Hypokalemia resolved. Monitor for aspiration precautions. Continue current management with nephrology 12/05: Overall poor prognosis considering his overall medical condition. He still very lethargic very drowsy and somnolent. Urinalysis yesterday reveals urinary tract infection. Will start patient on empiric antibiotics while awaiting cultures. Strongly recommend that hospice should be considered for this patient 12/06: Unfortunately remains chronically ill. I did discuss with Mr. Appiah the patient care provider. I have also advised him of his current condition and that this patient will benefit from hospice or at the very least palliative care. No clinical improvement patient opens his eyes on noxious stimuli but no other movement. Continue wound prevention measures. 12/07/2020; pending placement, possible hospice Plan of care reviewed with the patient's nurse and case management History Interval history: I have seen and examined the patient at the bedside Patient's chart and medications reviewed Patient feels slightly better no new complaints Vital signs noted Hospitalist Physical - Constitutional Vitals: Temp Pulse Resp BP Pulse Ox 97.3 F L 82 18 117/71 98 12/07/20 04:54 12/07/20 04:54 12/07/20 04:54 12/07/20 04:54 12/07/20 09:00 General appearance: Present: no acute distress, cachectic, disheveled, other (unresponsive) - EENT Eyes: Present: PERRL, EOM intact - Neck Neck: Present: supple, normal ROM - Respiratory Respiratory effort: normal Respiratory: bilateral: diminished, rhonchi, negative: rales, wheezing - Cardiovascular Rhythm: regular Heart Sounds: Present: S1 & S2 - Extremities Extremities: no ischemia, No edema - Abdominal General gastrointestinal: soft, non-tender, non-distended, normal bowel sounds - Integumentary Integumentary: Present: clear, warm - Psychiatric Psychiatric: appropriate mood/affect, cooperative, other (Confused at times) - Neurologic Neurologic: moves all extremities HEART Score - HEART Score Troponin: Troponin T < 0.010 ng/mL (0.00-0.029) 11/11/20 09:02 Results - Labs CBC & Chem 7: 12/06/20 08:33 12/07/20 05:00 Labs: Laboratory Last Values WBC 12.8 K/mm3 (4.5-11.0) H 12/06/20 08:33 RBC 4.44 M/mm3 (3.65-5.03) 12/06/20 08:33 Hgb 12.5 gm/dl (11.8-15.2) 12/06/20 08:33 Hct 37.2 % (35.5-45.6) 12/06/20 08:33 MCV 84 fl (84-94) 12/06/20 08:33 MCH 28 pg (28-32) 12/06/20 08:33 MCHC 34 % (32-34) 12/06/20 08:33 RDW 15.3 % (13.2-15.2) H 12/06/20 08:33 Plt Count 428 K/mm3 (140-440) 12/06/20 08:33 Lymph % (Auto) 18.3 % (13.4-35.0) 11/26/20 06:23 [place] % (Auto) 9.8 % (0.0-7.3) H 11/26/20 06:23 Eos % (Auto) 1.1 % (0.0-4.3) 11/26/20 06:23 Baso % (Auto) 0.7 % (0.0-1.8) 11/26/20 06:23 Lymph # (Auto) 1.7 K/mm3 (1.2-5.4) 11/26/20 06:23 [place] # (Auto) 0.9 K/mm3 (0.0-0.8) H 11/26/20 06:23 Eos # (Auto) 0.1 K/mm3 (0.0-0.4) 11/26/20 06:23 Baso # (Auto) 0.1 K/mm3 (0.0-0.1) 11/26/20 06:23 Add Manual Diff Complete 11/29/20 05:52 Total Counted 100 11/29/20 05:52 Seg Neutrophils % 70.1 % (40.0-70.0) H 11/26/20 06:23 Seg Neuts % (Manual) 76.0 % (40.0-70.0) H 11/29/20 05:52 Lymphocytes % (Manual) 10.0 % (13.4-35.0) L 11/29/20 05:52 Reactive Lymphs % (Man) 4.0 % 11/27/20 05:50 Monocytes % (Manual) 10.0 % (0.0-7.3) H 11/29/20 05:52 Eosinophils % (Manual) 3.0 % (0.0-4.3) 11/29/20 05:52 Metamyelocytes % 1.0 % 11/29/20 05:52 Nucleated RBC % Not Reportable 11/29/20 05:52 Seg Neutrophils # 9.5 K/mm3 (1.8-7.7) H 11/26/20 06:23 Seg Neutrophils # Man 7.4 K/mm3 (1.8-7.7) 11/29/20 05:52 Band Neutrophils # 0.0 K/mm3 11/29/20 05:52 Lymphocytes # (Manual) 1.0 K/mm3 (1.2-5.4) L 11/29/20 05:52 Abs React Lymphs (Man) 0.0 K/mm3 11/29/20 05:52 Monocytes # (Manual) 1.0 K/mm3 (0.0-0.8) H 11/29/20 05:52 Eosinophils # (Manual) 0.3 K/mm3 (0.0-0.4) 11/29/20 05:52 Basophils # (Manual) 0.0 K/mm3 (0.0-0.1) 11/29/20 05:52 Metamyelocytes # 0.1 K/mm3 11/29/20 05:52 Myelocytes # 0.0 K/mm3 11/29/20 05:52 Promyelocytes # 0.0 K/mm3 11/29/20 05:52 Blast Cells # 0.0 K/mm3 11/29/20 05:52 WBC Morphology Not Reportable 11/29/20 05:52 Hypersegmented Neuts Not Reportable 11/29/20 05:52 Hyposegmented Neuts Not Reportable 11/29/20 05:52 Hypogranular Neuts Not Reportable 11/29/20 05:52 Smudge Cells Not Reportable 11/29/20 05:52 Toxic Granulation Not Reportable 11/29/20 05:52 Toxic Vacuolation Not Reportable 11/29/20 05:52 Dohle Bodies Not Reportable 11/29/20 05:52 Pelger-Huet Anomaly Not Reportable 11/29/20 05:52 Fercho Rods Not Reportable 11/29/20 05:52 Platelet Estimate Consistent w auto 11/29/20 05:52 Clumped Platelets Not Reportable 11/29/20 05:52 Plt Clumps, EDTA Not Reportable 11/29/20 05:52 Large Platelets Not Reportable 11/29/20 05:52 Giant Platelets Not Reportable 11/29/20 05:52 Platelet Satelliting Not Reportable 11/29/20 05:52 Plt Morphology Comment Not Reportable 11/29/20 05:52 RBC Morphology Not Reportable 11/29/20 05:52 Dimorphic RBCs Not Reportable 11/29/20 05:52 Polychromasia Not Reportable 11/29/20 05:52 Hypochromasia Not Reportable 11/29/20 05:52 Poikilocytosis Not Reportable 11/29/20 05:52 Anisocytosis Few 11/29/20 05:52 Microcytosis Not Reportable 11/29/20 05:52 Macrocytosis Not Reportable 11/29/20 05:52 Spherocytes Not Reportable 11/29/20 05:52 Pappenheimer Bodies Not Reportable 11/29/20 05:52 Sickle Cells Not Reportable 11/29/20 05:52 Target Cells Few 11/29/20 05:52 Tear Drop Cells Not Reportable 11/29/20 05:52 Ovalocytes Not Reportable 11/29/20 05:52 Helmet Cells Not Reportable 11/29/20 05:52 Kim-Ayden Bodies Not Reportable 11/29/20 05:52 [place] Rings Not Reportable 11/29/20 05:52 [place] Cells Not Reportable 11/29/20 05:52 Bite Cells Not Reportable 11/29/20 05:52 Crenated Cell Not Reportable 11/29/20 05:52 Elliptocytes Not Reportable 11/29/20 05:52 Acanthocytes (Spur) Not Reportable 11/29/20 05:52 Rouleaux Not Reportable 11/29/20 05:52 Hemoglobin C Crystals Not Reportable 11/29/20 05:52 Schistocytes Not Reportable 11/29/20 05:52 Malaria parasites Not Reportable 11/29/20 05:52 Jones Bodies Not Reportable 11/29/20 05:52 Hem Pathologist Commnt No 11/29/20 05:52 PT 11.5 Sec. (12.2-14.9) L 11/11/20 09:02 INR 0.86 (0.87-1.13) L 11/11/20 09:02 APTT 25.5 Sec. (24.2-36.6) 11/11/20 09:02 Thrombin Time 17.0 Sec. (15.1-19.6) 11/11/20 09:02 ABG pH 7.499 (7.320-7.450) H 11/17/20 11:40 POC ABG pCO2 36.3 mmHg (32.0-48.0) 11/17/20 11:40 ABG pCO2 33.9 mm Hg 11/11/20 10:45 POC ABG pO2 140.8 mmHg (83-108) H 11/17/20 11:40 ABG pO2 222.2 mm Hg (80.0-90.0) H 11/11/20 10:45 POC ABG HCO3 27.6 11/17/20 11:40 ABG HCO3 24.9 mmol/L (20.0-26.0) 11/11/20 10:45 ABG O2 Saturation 98.1 (0-100) 11/17/20 11:40 ABG O2 Content 19.4 (0.0-44) 11/11/20 10:45 POC ABG Base Excess 4.4 11/17/20 11:40 ABG Base Excess 1.9 mmol/L (-2.0-3.0) 11/11/20 10:45 ABG Hemoglobin 11.8 (12.0-17.5) L 11/17/20 11:40 ABG Oxyhemoglobin 97.4 (94-98) 11/17/20 11:40 ABG Carboxyhemoglobin 0.6 % (0.0-5.0) 11/11/20 10:45 ABG Methemoglobin 0.3 (0.0-1.5) 11/17/20 11:40 ABG Sodium 135.1 mmol/L (136.0-145.0) L 11/17/20 11:40 ABG Potassium 4.2 mmol/L (3.40-4.50) 11/17/20 11:40 ABG Chloride 102.0 mmol/L (98-107) 11/17/20 11:40 ABG Glucose 110 mg/dL (65-95) H 11/17/20 11:40 Oxyhemoglobin 98.5 % (95.0-99.0) 11/11/20 10:45 Carboxyhemoglobin 0.4 (0.5-1.5) L 11/17/20 11:40 FiO2 21 % 11/11/20 10:45 FiO2 % 30 11/17/20 11:40 Sodium 137 mmol/L (137-145) 12/07/20 05:00 Potassium 4.1 mmol/L (3.6-5.0) 12/07/20 05:00 Chloride 101.2 mmol/L (98-107) 12/07/20 05:00 Carbon Dioxide 29 mmol/L (22-30) 12/07/20 05:00 Anion Gap 11 mmol/L 12/07/20 05:00 BUN 24 mg/dL (9-20) H 12/07/20 05:00 Creatinine 0.5 mg/dL (0.8-1.3) L 12/07/20 05:00 Estimated GFR > 60 ml/min 12/07/20 05:00 BUN/Creatinine Ratio 48 % 12/07/20 05:00 Glucose 123 mg/dL (75-100) H 12/07/20 05:00 POC Glucose 119 mg/dL (70-105) H 12/07/20 05:46 Hemoglobin A1c 5.4 % (4-6) 11/12/20 07:26 Osmolality 274 Mosm/kg 11/29/20 13:08 Uric Acid 1.7 mg/dL (3.5-7.6) L 11/29/20 13:08 Calcium 8.7 mg/dL (8.4-10.2) 12/07/20 05:00 Magnesium 2.00 mg/dL (1.7-2.3) 11/11/20 09:02 Total Bilirubin 0.40 mg/dL (0.1-1.2) 11/29/20 05:52 AST 42 units/L (5-40) H 11/29/20 05:52 ALT 30 units/L (7-56) 11/29/20 05:52 Alkaline Phosphatase 156 units/L (35-129) H 11/29/20 05:52 Ammonia 29.0 umol/L (25-60) 11/12/20 08:47 Total Creatine Kinase 169 units/L (55-170) 11/11/20 09:02 CK-MB (CK-2) 6.6 ng/mL (0.0-4.0) H 11/11/20 09:02 CK-MB (CK-2) Rel Index 3.9 (0-4) 11/11/20 09:02 Troponin T < 0.010 ng/mL (0.00-0.029) 11/11/20 09:02 Total Protein 7.8 g/dL (6.3-8.2) 11/29/20 05:52 Albumin 3.2 g/dL (3.9-5) L 11/29/20 05:52 Albumin/Globulin Ratio 0.7 % 11/29/20 05:52 TSH 5.610 mlU/mL (0.270-4.200) H 11/29/20 05:52 Free T4 1.24 ng/dL (0.76-1.46) 11/29/20 10:31 Total Cortisol 25.5 mcg/dL () 11/29/20 05:52 Arterial Blood Glucose 110 mg/dL (65-95) H 11/17/20 11:40 Arterial Blood Ionized Calcium 4.9 mg/dL (4.6-5.3) 11/17/20 11:40 Urine Color [place] (Yellow) 12/05/20 06:20 Urine Turbidity Slightly-cloudy (Clear) 12/05/20 06:20 Urine pH 7.0 (5.0-7.0) 12/05/20 06:20 Ur Specific [place] 1.025 (1.003-1.030) 12/05/20 06:20 Urine Protein 30 mg/dl mg/dL (Negative) 12/05/20 06:20 Urine Glucose (UA) Neg mg/dL (Negative) 12/05/20 06:20 Urine Ketones Neg mg/dL (Negative) 12/05/20 06:20 Urine Blood Neg (Negative) 12/05/20 06:20 Urine Nitrite Neg (Negative) 12/05/20 06:20 Urine Bilirubin Neg (Negative) 12/05/20 06:20 Urine Urobilinogen 4.0 mg/dL (<2.0) 12/05/20 06:20 Ur Leukocyte Esterase Sm (Negative) 12/05/20 06:20 Urine WBC (Auto) 13.0 /HPF (0.0-6.0) H 12/05/20 06:20 Urine RBC (Auto) 2.0 /HPF (0.0-6.0) 12/05/20 06:20 U Epithel Cells (Auto) 2.0 /HPF (0-13.0) 12/05/20 06:20 Urine Bacteria (Auto) 1+ /HPF (Negative) 12/05/20 06:20 Urine Mucus Few /HPF 12/05/20 06:20 Urine Osmolality 610 Mosm/kg 11/29/20 11:09 Urine Opiates Screen Negative 11/11/20 20:27 Urine Methadone Screen Negative 11/11/20 20:27 Ur Barbiturates Screen Positive 11/11/20 20:27 Ur Phencyclidine Scrn Negative 11/11/20 20:27 Ur Amphetamines Screen Negative 11/11/20 20:27 Phenobarbital 4.3 ug/mL (15.0-40.0) L 11/12/20 08:47 U Benzodiazepines Scrn Negative 11/11/20 20:27 Urine Cocaine Screen Negative 11/11/20 20:27 U Marijuana (THC) Screen Negative 11/11/20 20:27 Drugs of Abuse Note Disclamer 11/11/20 20:27 Plasma/Serum Alcohol < 0.01 % (0-0.07) 11/11/20 09:02 Coronavirus (PCR) Negative (Negative) 12/02/20 Unknown Microbiology: Microbiology 12/05/20 06:20 Urine,Clean Catch Urine Culture - Preliminary [place]/IV: Voiding Method Condom Catheter Active Medications - Current Medications Current Medications: Generic Name Dose Route Start Last Admin Trade Name Freq PRN Reason Stop Dose Admin Acetaminophen 650 mg 11/11/20 22:58 Acetaminophen 325 Mg Tab PO Q4H PRN Pain MILD(1-3)/Fever >100.5/BAR Albuterol 2.5 mg 11/11/20 23:18 Albuterol 2.5 Mg/3 Ml Nebu IH Q3HRT PRN Wheezing Lipase/Protease/Amylase 1 each 11/12/20 12:00 Lipase 10,500/Protease 25,000/Amylase 43,750 (Units) Dr Rangel FEEDTUBE PRN PRN For Clogged Feeding Tube Dextrose 50 ml 11/11/20 22:11 11/17/20 23:29 Dextrose 50% In Water (25gm) 50 Ml Syringe IV 10 ml ONCE PRN Administration Hypoglycemia Protocol Enoxaparin Sodium 40 mg 11/12/20 22:00 12/06/20 22:11 Enoxaparin 40 Mg/0.4 Ml Inj SUB-Q 40 mg QDAY@2200 KIRK Administration Protocol Folic Acid 1 mg 11/16/20 10:00 04/06/21 09:21 Folic Acid 1 Mg Tab PO 1 mg DAILY KIRK Administration Hydralazine HCl 10 mg 11/12/20 10:30 11/14/20 07:30 Hydralazine 20 Mg/1 Ml Inj IV 10 mg Q4H PRN Administration Hypertension Hydrophilic Ointment 1 applic 11/11/20 09:14 Lip Therapy Vaseline TP Q2HR PRN Dry Lips Cefepime HCl 1 gm in 100 mls @ 200 mls/hr 12/05/20 09:00 12/07/20 09:20 Cefepime/Ns 1 Gm/100 Ml IV 12/08/20 08:59 200 mls/hr Q8H KIRK Administration Protocol Insulin Human Regular 0 units 11/12/20 18:00 12/07/20 05:48 Insulin Regular, Human 100 Units/1 Ml SUB-Q Not Given Q6H KIRK Protocol Lansoprazole 30 mg 11/24/20 10:00 12/07/20 09:23 Lansoprazole 30 Mg Solutab FEEDTUBE 30 mg QDAY KIRK Administration Levetiracetam 1,000 mg 11/24/20 10:00 12/07/20 09:22 Levetiracetam 500 Mg/5 Ml Oral Liqd FEEDTUBE 1,000 mg BID KIRK Administration Metoclopramide HCl 10 mg 11/11/20 22:58 Metoclopramide 10 Mg/2 Ml Inj IV Q6H PRN Nausea And Vomiting Multi-Ingred Cream/Lotion/Oil/Oint 1 applic 11/11/20 09:14 Mineral Oil/Petrolatum, White Ophth Oint 3.5 Gm OU Q4HR PRN Dry Eye(s) Multivitamins 1 each 11/13/20 00:00 12/06/20 23:12 Multivitamins ,Therapeutic Tab PO 1 each Q24H KIRK Administration Naloxone HCl 2 mg 11/11/20 08:33 Naloxone 0.4 Mg/1 Ml Inj IV Q2MIN PRN Res Rate </= 8 or 02 SAT < 92% Ondansetron HCl 4 mg 11/11/20 22:58 Ondansetron 4 Mg/2 Ml Inj IV Q3H PRN Nausea And Vomiting Phenobarbital 15 mg 11/11/20 23:45 12/07/20 09:22 Phenobarbital 15 Mg Tab PO 15 mg BID KIRK Administration Simple Syrup 15 ml 11/12/20 12:00 Simple Syrup 15 Ml FEEDTUBE PRN PRN Hypoglycemia Simple Syrup 30 ml 11/12/20 12:00 Simple Syrup 15 Ml FEEDTUBE PRN PRN Hypoglycemia Sodium Bicarbonate 325 mg 11/12/20 12:00 Sodium Bicarbonate 325 Mg Tab FEEDTUBE PRN PRN For Clogged Feeding Tube Sodium Chloride 10 ml 11/11/20 23:00 12/07/20 09:24 Sodium Chloride 0.9% 10 Ml Flush Syringe IV 10 ml BID KIRK Administration Sodium Chloride 10 ml 11/11/20 22:58 Sodium Chloride 0.9% 10 Ml Flush Syringe IV PRN PRN LINE FLUSH Sodium Chloride 2 gm 11/30/20 22:23 12/07/20 09:20 Sodium Chloride 1 Gm Tab PO 2 gm TID KIRK Administration Thiamine HCl 100 mg 11/16/20 10:00 12/07/20 09:24 Thiamine 100 Mg Tab PO 100 mg QDAY KIRK Administration Nutrition/Malnutrition Assess - Dietary Evaluation Nutrition/Malnutrition Findings: Nutrition Notes Start: 11/12/20 08:26 Freq: Status: Active Protocol: Document 12/02/20 13:55 JOHANA (Rec: 12/02/20 14:00 JOHANA [id number]) Nutrition Notes Initial or Follow up Brief Note Current Diet TF - Jevity 1.2 at 60ml/hr Labs/Tests Na 133 (improving) Height 5 ft 9 in Weight 58.4 kg [place] Body Weight (kg) 72.72 BMI 19.0 Subjective/Other Information Pt tolerating TF at goal rate. He is awaiting placement. Percent of energy/protein needs met: 100% energy/pro Is patient on ventilator? No Is Patient Ambulatory and/or Out of Bed No REE-([place]-St[place] Jeor-confined to bed) [phone] Calculation Used for Recommendations [place] Jeor Additional Notes Pro needs 1.2-1.5g/k-88g/ day Fluid needs 1ml/kcal Nutrition Intervention Follow-Up By: 12/09/20 Additional Comments F/U: stable TF, wt, Na lab, water flushes
--- NOTE | 2020-12-07 15:11 | Progress Note ---
Assessment and Plan 1. 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 Normal Cortisol level. Tolvaptan: 3/30(15 mg), 4/2(15 mg), 4/4 (15 mg). Continue Salt tablets. Monitor Sodium level. 2. Acute hypoxic respiratory failure: Now extubated. NC oxygen as needed. 3. Acute metabolic encephalopathy: MRI brain showed chronic changes. Monitor. 4. Seizure disorder: Continue antiseizure medications. 5 SIRS: COVID-19 test negative. Monitor. 6. 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 7. Dysphagia: S/p PEG placement. Subjective: Patient was seen and examined at the bedside. Objective: General appearance: well-developed, appears stated age, no distress noted HEENT: ATNC Neck: trachea midline Respiratory: ctab Heart: regular, S1S2, no murmur Gastrointestinal: soft, normoactive bowel sounds, not tender, PEG tube noted Integumentary: no rash, warm and dry Ext: no edema Neurologic: opens eyes, aphasic, not following any command Subjective Date of service: 12/07/20 Principal diagnosis: Neurogenic Dysphagia Objective - Vital Signs Vital signs: Vital Signs - 12hr 12/07/20 12/07/20 12/07/20 04:54 09:00 11:35 Temperature 97.3 F L 98.6 F Pulse Rate 82 72 Respiratory 18 20 Rate Blood Pressure 117/71 114/68 O2 Sat by Pulse 97 98 100 Oximetry - Lab 12/06/20 08:33 12/07/20 05:00 Most recent lab results ABG pH 7.499 (7.320-7.450) H 11/17/20 11:40 ABG pCO2 33.9 mm Hg 11/11/20 10:45 ABG pO2 222.2 mm Hg (80.0-90.0) H 11/11/20 10:45 ABG HCO3 24.9 mmol/L (20.0-26.0) 11/11/20 10:45 ABG O2 Saturation 98.1 (0-100) 11/17/20 11:40 Calcium 8.7 mg/dL (8.4-10.2) 12/07/20 05:00 Magnesium 2.00 mg/dL (1.7-2.3) 11/11/20 09:02 Medications & Allergies - Medications Allergies/Adverse Reactions: Allergies No Known Allergies Allergy (Verified 02/24/18 09:21) Home Medications: Home Medications Medication Instructions Recorded Confirmed Last Taken Type PHENobarbitaL [PHENobarbital] 15 mg PO BID 30 Days #60 tablet 05/30/20 11/12/20 Unknown Rx levETIRAcetam [Keppra TAB] 500 mg PO BID #60 tablet 05/30/20 11/23/20 Unknown Rx Vitamin B-1 100 mg PO DAILY 08/12/20 11/12/20 Unknown History levETIRAcetam [Keppra TAB] 1,000 mg PO BID 30 Days #60 tab 08/12/20 11/23/20 Unknown Rx levETIRAcetam [Keppra TAB] 1,000 mg PO BID 90 Days #180 tab 10/01/20 11/23/20 Unknown Rx haloperidoL [Haloperidol] 5 mg PO ONCE 11/12/20 11/12/20 Unknown History Active Medications: Generic Name Dose Route Start Last Admin Trade Name Freq PRN Reason Stop Dose Admin Acetaminophen 650 mg 11/11/20 22:58 Acetaminophen 325 Mg Tab PO Q4H PRN Pain MILD(1-3)/Fever >100.5/BAR Albuterol 2.5 mg 11/11/20 23:18 Albuterol 2.5 Mg/3 Ml Nebu IH Q3HRT PRN Wheezing Lipase/Protease/Amylase 1 each 11/12/20 12:00 Lipase 10,500/Protease 25,000/Amylase 43,750 (Units) Dr Rangel FEEDTUBE PRN PRN For Clogged Feeding Tube Dextrose 50 ml 11/11/20 22:11 11/17/20 23:29 Dextrose 50% In Water (25gm) 50 Ml Syringe IV 10 ml ONCE PRN Administration Hypoglycemia Protocol Enoxaparin Sodium 40 mg 11/12/20 22:00 12/06/20 22:11 Enoxaparin 40 Mg/0.4 Ml Inj SUB-Q 40 mg QDAY@2200 KIRK Administration Protocol Folic Acid 1 mg 11/16/20 10:00 12/07/20 09:21 Folic Acid 1 Mg Tab PO 1 mg DAILY KIRK Administration Hydralazine HCl 10 mg 11/12/20 10:30 11/14/20 07:30 Hydralazine 20 Mg/1 Ml Inj IV 10 mg Q4H PRN Administration Hypertension Hydrophilic Ointment 1 applic 11/11/20 09:14 Lip Therapy Vaseline TP Q2HR PRN Dry Lips Cefepime HCl 1 gm in 100 mls @ 200 mls/hr 12/05/20 09:00 12/07/20 09:20 Cefepime/Ns 1 Gm/100 Ml IV 12/08/20 08:59 200 mls/hr Q8H KIRK Administration Protocol Insulin Human Regular 0 units 11/12/20 18:00 12/07/20 13:15 Insulin Regular, Human 100 Units/1 Ml SUB-Q Not Given Q6H KIRK Protocol Lansoprazole 30 mg 11/24/20 10:00 12/07/20 09:23 Lansoprazole 30 Mg Solutab FEEDTUBE 30 mg QDAY KIRK Administration Levetiracetam 1,000 mg 11/24/20 10:00 12/07/20 09:22 Levetiracetam 500 Mg/5 Ml Oral Liqd FEEDTUBE 1,000 mg BID KIRK Administration Metoclopramide HCl 10 mg 11/11/20 22:58 Metoclopramide 10 Mg/2 Ml Inj IV Q6H PRN Nausea And Vomiting Multi-Ingred Cream/Lotion/Oil/Oint 1 applic 11/11/20 09:14 Mineral Oil/Petrolatum, White Ophth Oint 3.5 Gm OU Q4HR PRN Dry Eye(s) Multivitamins 1 each 11/13/20 00:00 12/06/20 23:12 Multivitamins ,Therapeutic Tab PO 1 each Q24H KIRK Administration Naloxone HCl 2 mg 11/11/20 08:33 Naloxone 0.4 Mg/1 Ml Inj IV Q2MIN PRN Res Rate </= 8 or 02 SAT < 92% Ondansetron HCl 4 mg 11/11/20 22:58 Ondansetron 4 Mg/2 Ml Inj IV Q3H PRN Nausea And Vomiting Phenobarbital 15 mg 11/11/20 23:45 12/07/20 09:22 Phenobarbital 15 Mg Tab PO 15 mg BID KIRK Administration Simple Syrup 15 ml 11/12/20 12:00 Simple Syrup 15 Ml FEEDTUBE PRN PRN Hypoglycemia Simple Syrup 30 ml 11/12/20 12:00 Simple Syrup 15 Ml FEEDTUBE PRN PRN Hypoglycemia Sodium Bicarbonate 325 mg 11/12/20 12:00 Sodium Bicarbonate 325 Mg Tab FEEDTUBE PRN PRN For Clogged Feeding Tube Sodium Chloride 10 ml 11/11/20 23:00 12/07/20 09:24 Sodium Chloride 0.9% 10 Ml Flush Syringe IV 10 ml BID KIRK Administration Sodium Chloride 10 ml 11/11/20 22:58 Sodium Chloride 0.9% 10 Ml Flush Syringe IV PRN PRN LINE FLUSH Sodium Chloride 2 gm 11/30/20 22:23 12/07/20 13:39 Sodium Chloride 1 Gm Tab PO 2 gm TID KIRK Administration Thiamine HCl 100 mg 11/16/20 10:00 12/07/20 09:24 Thiamine 100 Mg Tab PO 100 mg QDAY KIRK Administration
[2020-12-07] MEDS: ACETAMINOPHEN 325 MG TAB PO PRN (21:13)
[2020-12-08] MEDS: CEFEPIME/NS 1 GM/100 ML 1 GM/100 ML BAG IV SCH (01:25)
[2020-12-08] MEDS: MULTIVITAMINS ,THERAPEUTIC TAB PO SCH ×2 (02:24→23:31)
[2020-12-08] MEDS: INSULIN REGULAR, HUMAN 100 UNITS/1 ML SUB-Q SCH ×4 (02:25→18:09)
[2020-12-08] MEDS: ENOXAPARIN 40 MG/0.4 ML INJ SUB-Q SCH ×2 (02:28→21:15)
[2020-12-08 09:04] LABS: Blood Urea Nitrogen 23 mg/dL (9-20); Calcium 8.5 mg/dL (8.4-10.2); Hemolysis Index 36
[2020-12-08 09:42] LABS: BUN/Creatinine Ratio 46
--- NOTE | 2020-12-08 09:54 | Progress Note ---
Assessment and Plan 1. 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 Normal Cortisol level. Tolvaptan: 3/30(15 mg), 4/2(15 mg), 4/4 (15 mg). Continue Salt tablets. Monitor Sodium level. 2. Acute hypoxic respiratory failure: Now extubated. NC oxygen as needed. 3. Acute metabolic encephalopathy: MRI brain showed chronic changes. Monitor. 4. Seizure disorder: Continue antiseizure medications. 5 SIRS: COVID-19 test negative. Monitor. 6. 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 7. Dysphagia: S/p PEG placement. Subjective: Patient was seen and examined at the bedside. Objective: General appearance: well-developed, appears stated age, no distress noted HEENT: ATNC Neck: trachea midline Respiratory: ctab Heart: regular, S1S2, no murmur Gastrointestinal: soft, normoactive bowel sounds, not tender, PEG tube noted Integumentary: no rash, warm and dry Ext: no edema Neurologic: opens eyes, aphasic, not following any command Subjective Date of service: 12/08/20 Principal diagnosis: Neurogenic Dysphagia Objective - Vital Signs Vital signs: Vital Signs - 12hr 12/08/20 12/08/20 05:13 05:25 Temperature 98.0 F 98.0 F Pulse Rate 77 88 Respiratory 16 18 Rate Blood Pressure 149/85 168/91 O2 Sat by Pulse 100 96 Oximetry - Lab 12/06/20 08:33 12/08/20 08:11 Most recent lab results ABG pH 7.499 (7.320-7.450) H 11/17/20 11:40 ABG pCO2 33.9 mm Hg 11/11/20 10:45 ABG pO2 222.2 mm Hg (80.0-90.0) H 11/11/20 10:45 ABG HCO3 24.9 mmol/L (20.0-26.0) 11/11/20 10:45 ABG O2 Saturation 98.1 (0-100) 11/17/20 11:40 Calcium 8.5 mg/dL (8.4-10.2) 12/08/20 08:11 Magnesium 2.00 mg/dL (1.7-2.3) 11/11/20 09:02 Medications & Allergies - Medications Allergies/Adverse Reactions: Allergies No Known Allergies Allergy (Verified 02/24/18 09:21) Home Medications: Home Medications Medication Instructions Recorded Confirmed Last Taken Type PHENobarbitaL [PHENobarbital] 15 mg PO BID 30 Days #60 tablet 05/30/20 11/12/20 Unknown Rx levETIRAcetam [Keppra TAB] 500 mg PO BID #60 tablet 05/30/20 11/23/20 Unknown Rx Vitamin B-1 100 mg PO DAILY 08/12/20 11/12/20 Unknown History levETIRAcetam [Keppra TAB] 1,000 mg PO BID 30 Days #60 tab 08/12/20 11/23/20 Unknown Rx levETIRAcetam [Keppra TAB] 1,000 mg PO BID 90 Days #180 tab 10/01/20 11/23/20 Unknown Rx haloperidoL [Haloperidol] 5 mg PO ONCE 11/12/20 11/12/20 Unknown History Active Medications: Generic Name Dose Route Start Last Admin Trade Name Freq PRN Reason Stop Dose Admin Acetaminophen 650 mg 11/11/20 22:58 12/07/20 21:13 Acetaminophen 325 Mg Tab PO 650 mg Q4H PRN Administration Pain MILD(1-3)/Fever >100.5/BAR Albuterol 2.5 mg 11/11/20 23:18 Albuterol 2.5 Mg/3 Ml Nebu IH Q3HRT PRN Wheezing Lipase/Protease/Amylase 1 each 11/12/20 12:00 Lipase 10,500/Protease 25,000/Amylase 43,750 (Units) Dr Rangel FEEDTUBE PRN PRN For Clogged Feeding Tube Dextrose 50 ml 11/11/20 22:11 11/17/20 23:29 Dextrose 50% In Water (25gm) 50 Ml Syringe IV 10 ml ONCE PRN Administration Hypoglycemia Protocol Enoxaparin Sodium 40 mg 11/12/20 22:00 12/08/20 02:28 Enoxaparin 40 Mg/0.4 Ml Inj SUB-Q 40 mg QDAY@2200 KIRK Administration Protocol Folic Acid 1 mg 11/16/20 10:00 12/07/20 09:21 Folic Acid 1 Mg Tab PO 1 mg DAILY KIRK Administration Hydralazine HCl 10 mg 11/12/20 10:30 11/14/20 07:30 Hydralazine 20 Mg/1 Ml Inj IV 10 mg Q4H PRN Administration Hypertension Hydrophilic Ointment 1 applic 11/11/20 09:14 Lip Therapy Vaseline TP Q2HR PRN Dry Lips Insulin Human Regular 0 units 11/12/20 18:00 12/08/20 06:27 Insulin Regular, Human 100 Units/1 Ml SUB-Q Not Given Q6H KIRK Protocol Lansoprazole 30 mg 11/24/20 10:00 12/07/20 09:23 Lansoprazole 30 Mg Solutab FEEDTUBE 30 mg QDAY KIRK Administration Levetiracetam 1,000 mg 11/24/20 10:00 12/07/20 21:14 Levetiracetam 500 Mg/5 Ml Oral Liqd FEEDTUBE 1,000 mg BID KIRK Administration Metoclopramide HCl 10 mg 11/11/20 22:58 Metoclopramide 10 Mg/2 Ml Inj IV Q6H PRN Nausea And Vomiting Multi-Ingred Cream/Lotion/Oil/Oint 1 applic 11/11/20 09:14 Mineral Oil/Petrolatum, White Ophth Oint 3.5 Gm OU Q4HR PRN Dry Eye(s) Multivitamins 1 each 11/13/20 00:00 12/08/20 02:24 Multivitamins ,Therapeutic Tab PO 1 each Q24H KIRK Administration Naloxone HCl 2 mg 11/11/20 08:33 Naloxone 0.4 Mg/1 Ml Inj IV Q2MIN PRN Res Rate </= 8 or 02 SAT < 92% Ondansetron HCl 4 mg 11/11/20 22:58 Ondansetron 4 Mg/2 Ml Inj IV Q3H PRN Nausea And Vomiting Phenobarbital 15 mg 11/11/20 23:45 12/07/20 21:14 Phenobarbital 15 Mg Tab PO 15 mg BID KIRK Administration Simple Syrup 15 ml 11/12/20 12:00 12/08/20 07:15 Simple Syrup 15 Ml FEEDTUBE 15 ml PRN PRN Administration Hypoglycemia Simple Syrup 30 ml 11/12/20 12:00 Simple Syrup 15 Ml FEEDTUBE PRN PRN Hypoglycemia Sodium Bicarbonate 325 mg 11/12/20 12:00 Sodium Bicarbonate 325 Mg Tab FEEDTUBE PRN PRN For Clogged Feeding Tube Sodium Chloride 10 ml 11/11/20 23:00 12/07/20 23:31 Sodium Chloride 0.9% 10 Ml Flush Syringe IV 10 ml BID KIRK Administration Sodium Chloride 10 ml 11/11/20 22:58 Sodium Chloride 0.9% 10 Ml Flush Syringe IV PRN PRN LINE FLUSH Sodium Chloride 2 gm 11/30/20 22:23 12/07/20 21:13 Sodium Chloride 1 Gm Tab PO 2 gm TID KIRK Administration Thiamine HCl 100 mg 11/16/20 10:00 12/07/20 09:24 Thiamine 100 Mg Tab PO 100 mg QDAY KIRK Administration
[2020-12-08] MEDS: SODIUM CHLORIDE 1 GM TAB PO SCH ×3 (10:06→19:41)
[2020-12-08] MEDS: THIAMINE 100 MG TAB PO SCH (10:10)
[2020-12-08] MEDS: FOLIC ACID 1 MG TAB PO SCH (10:10)
[2020-12-08] MEDS: levETIRAcetam 500 MG/5 ML ORAL LIQD FEEDTUBE SCH ×2 (10:11→21:15)
[2020-12-08] MEDS: LANSOPRAZOLE 30 MG SOLUTAB FEEDTUBE SCH (10:11)
[2020-12-08] MEDS: PHENobarbital 15 MG TAB PO SCH ×2 (10:11→21:16)
--- NOTE | 2020-12-08 10:27 | Progress Note ---
Assessment and Plan Assessment and plan: COVID-19 test negative x 2 [ 11/12/2020, 11/23/2020] --Acute hypoxic respiratory failure requiring intubation Now extubated, Improved. Now on 2-1/2 L of oxygen Patient is saturating 97% on room air today --Acute toxic metabolic encephalopathy Multifactorial, due to seizures, SIRS, hyponatremia, abnormal thyroid functions Unknown baseline, treat the underlying cause Has no ongoing infective process CT head ,MRI brain is negative Continue supportive care --History of seizure disorder; Seizure precautions ,continue antiepileptic medications No new episodes of seizures, cannot drive CT head and brain MRI showed no acute etiology for seizure --SIRS Etiology unknown-urinalysis negative, chest x-ray also negative COVID-19 test negative, supportive care antibiotics DC'd --Needs ENT as outpatient for evaluation of upper airway. He has no carcinoma as written in previous notes Needs further evaluation of liver lesion with MRI as outpatient Also needs to follow up with pulmonary in the office --Dysphagia; s/p PEG placement, continue PEG care PEG feeds per protocol, aspiration precautions --Hyponatremia; Sodium today 129, continue replacement therapy Closely monitor electrolytes --Abnormal low TSH; Free T4 wnl -- Hypokalemia; No resolved --DVT prophylaxis-SCDs, Lovenox --GI prophylaxis-PPIs --Full CODE STATUS; --Disposition-Pending placement 12/02. His sodium has improved. Awaiting placement. Has no family. Patient is a lui of the [facility]. He will need ENT evaluation with laryngoscopy at discharge. 12/03; potassium sodium continues to be low, continue current management nephrolo gy following, awaiting placement 12/04: Awaiting placement. No issues noted overnight, Hypokalemia resolved. Monitor for aspiration precautions. Continue current management with nephrology 12/05: Overall poor prognosis considering his overall medical condition. He still very lethargic very drowsy and somnolent. Urinalysis yesterday reveals urinary tract infection. Will start patient on empiric antibiotics while awaiting cultures. Strongly recommend that hospice should be considered for this patient 12/06: Unfortunately remains chronically ill. I did discuss with Mr. Appiah the patient care provider. I have also advised him of his current condition and that this patient will benefit from hospice or at the very least palliative care. No clinical improvement patient opens his eyes on noxious stimuli but no other movement. Continue wound prevention measures. 12/07/2020; pending placement, possible hospice Plan of care reviewed with the patient's nurse and case management 12/08/2020; pending placement 12/09/2020; awaiting placement, possible hospice house DC planning per case management History Interval history: I seen and examined the patient at the bedside Patient's chart and medications reviewed No new events reported by the nursing Vital signs noted Hospitalist Physical - Constitutional Vitals: Temp Pulse Resp BP Pulse Ox 98.0 F 88 18 168/91 96 12/08/20 05:25 12/08/20 05:25 12/08/20 05:25 12/08/20 05:25 12/08/20 05:25 General appearance: Present: no acute distress, cachectic, disheveled, other (unresponsive) - EENT Eyes: Present: PERRL, EOM intact - Neck Neck: Present: supple, normal ROM - Respiratory Respiratory effort: normal Respiratory: bilateral: diminished, negative: rales, rhonchi, wheezing - Cardiovascular Rhythm: regular Heart Sounds: Present: S1 & S2 - Extremities Extremities: no ischemia, No edema - Abdominal General gastrointestinal: soft, non-tender, non-distended, normal bowel sounds - Integumentary Integumentary: Present: clear, warm - Psychiatric Psychiatric: appropriate mood/affect, cooperative - Neurologic Neurologic: CNII-XII intact, moves all extremities HEART Score - HEART Score Troponin: Troponin T < 0.010 ng/mL (0.00-0.029) 11/11/20 09:02 Results - Labs CBC & Chem 7: 12/06/20 08:33 12/09/20 04:49 Labs: Laboratory Last Values WBC 12.8 K/mm3 (4.5-11.0) H 12/06/20 08:33 RBC 4.44 M/mm3 (3.65-5.03) 12/06/20 08:33 Hgb 12.5 gm/dl (11.8-15.2) 12/06/20 08:33 Hct 37.2 % (35.5-45.6) 12/06/20 08:33 MCV 84 fl (84-94) 12/06/20 08:33 MCH 28 pg (28-32) 12/06/20 08:33 MCHC 34 % (32-34) 12/06/20 08:33 RDW 15.3 % (13.2-15.2) H 12/06/20 08:33 Plt Count 428 K/mm3 (140-440) 12/06/20 08:33 Lymph % (Auto) 18.3 % (13.4-35.0) 11/26/20 06:23 Arroyo % (Auto) 9.8 % (0.0-7.3) H 11/26/20 06:23 Eos % (Auto) 1.1 % (0.0-4.3) 11/26/20 06:23 Baso % (Auto) 0.7 % (0.0-1.8) 11/26/20 06:23 Lymph # (Auto) 1.7 K/mm3 (1.2-5.4) 11/26/20 06:23 [place]o # (Auto) 0.9 K/mm3 (0.0-0.8) H 11/26/20 06:23 Eos # (Auto) 0.1 K/mm3 (0.0-0.4) 11/26/20 06:23 Baso # (Auto) 0.1 K/mm3 (0.0-0.1) 11/26/20 06:23 Add Manual Diff Complete 11/29/20 05:52 Total Counted 100 11/29/20 05:52 Seg Neutrophils % 70.1 % (40.0-70.0) H 11/26/20 06:23 Seg Neuts % (Manual) 76.0 % (40.0-70.0) H 11/29/20 05:52 Lymphocytes % (Manual) 10.0 % (13.4-35.0) L 11/29/20 05:52 Reactive Lymphs % (Man) 4.0 % 11/27/20 05:50 Monocytes % (Manual) 10.0 % (0.0-7.3) H 11/29/20 05:52 Eosinophils % (Manual) 3.0 % (0.0-4.3) 11/29/20 05:52 Metamyelocytes % 1.0 % 11/29/20 05:52 Nucleated RBC % Not Reportable 11/29/20 05:52 Seg Neutrophils # 9.5 K/mm3 (1.8-7.7) H 11/26/20 06:23 Seg Neutrophils # Man 7.4 K/mm3 (1.8-7.7) 11/29/20 05:52 Band Neutrophils # 0.0 K/mm3 11/29/20 05:52 Lymphocytes # (Manual) 1.0 K/mm3 (1.2-5.4) L 11/29/20 05:52 Abs React Lymphs (Man) 0.0 K/mm3 11/29/20 05:52 Monocytes # (Manual) 1.0 K/mm3 (0.0-0.8) H 11/29/20 05:52 Eosinophils # (Manual) 0.3 K/mm3 (0.0-0.4) 11/29/20 05:52 Basophils # (Manual) 0.0 K/mm3 (0.0-0.1) 11/29/20 05:52 Metamyelocytes # 0.1 K/mm3 11/29/20 05:52 Myelocytes # 0.0 K/mm3 11/29/20 05:52 Promyelocytes # 0.0 K/mm3 11/29/20 05:52 Blast Cells # 0.0 K/mm3 11/29/20 05:52 WBC Morphology Not Reportable 11/29/20 05:52 Hypersegmented Neuts Not Reportable 11/29/20 05:52 Hyposegmented Neuts Not Reportable 11/29/20 05:52 Hypogranular Neuts Not Reportable 11/29/20 05:52 Smudge Cells Not Reportable 11/29/20 05:52 Toxic Granulation Not Reportable 11/29/20 05:52 Toxic Vacuolation Not Reportable 11/29/20 05:52 Dohle Bodies Not Reportable 11/29/20 05:52 Pelger-Huet Anomaly Not Reportable 11/29/20 05:52 Fercho Rods Not Reportable 11/29/20 05:52 Platelet Estimate Consistent w auto 11/29/20 05:52 Clumped Platelets Not Reportable 11/29/20 05:52 Plt Clumps, EDTA Not Reportable 11/29/20 05:52 Large Platelets Not Reportable 11/29/20 05:52 Giant Platelets Not Reportable 11/29/20 05:52 Platelet Satelliting Not Reportable 11/29/20 05:52 Plt Morphology Comment Not Reportable 11/29/20 05:52 RBC Morphology Not Reportable 11/29/20 05:52 Dimorphic RBCs Not Reportable 11/29/20 05:52 Polychromasia Not Reportable 11/29/20 05:52 Hypochromasia Not Reportable 11/29/20 05:52 Poikilocytosis Not Reportable 11/29/20 05:52 Anisocytosis Few 11/29/20 05:52 Microcytosis Not Reportable 11/29/20 05:52 Macrocytosis Not Reportable 11/29/20 05:52 Spherocytes Not Reportable 11/29/20 05:52 Pappenheimer Bodies Not Reportable 11/29/20 05:52 Sickle Cells Not Reportable 11/29/20 05:52 Target Cells Few 11/29/20 05:52 Tear Drop Cells Not Reportable 11/29/20 05:52 Ovalocytes Not Reportable 11/29/20 05:52 Helmet Cells Not Reportable 11/29/20 05:52 [place] Bodies Not Reportable 11/29/20 05:52 [place] Rings Not Reportable 11/29/20 05:52 Joni Cells Not Reportable 11/29/20 05:52 Bite Cells Not Reportable 11/29/20 05:52 Crenated Cell Not Reportable 11/29/20 05:52 Elliptocytes Not Reportable 11/29/20 05:52 Acanthocytes (Spur) Not Reportable 11/29/20 05:52 Rouleaux Not Reportable 11/29/20 05:52 Hemoglobin C Crystals Not Reportable 11/29/20 05:52 Schistocytes Not Reportable 11/29/20 05:52 Malaria parasites Not Reportable 11/29/20 05:52 Jones Bodies Not Reportable 11/29/20 05:52 Hem Pathologist Commnt No 11/29/20 05:52 PT 11.5 Sec. (12.2-14.9) L 11/11/20 09:02 INR 0.86 (0.87-1.13) L 11/11/20 09:02 APTT 25.5 Sec. (24.2-36.6) 11/11/20 09:02 Thrombin Time 17.0 Sec. (15.1-19.6) 11/11/20 09:02 ABG pH 7.499 (7.320-7.450) H 11/17/20 11:40 POC ABG pCO2 36.3 mmHg (32.0-48.0) 11/17/20 11:40 ABG pCO2 33.9 mm Hg 11/11/20 10:45 POC ABG pO2 140.8 mmHg (83-108) H 11/17/20 11:40 ABG pO2 222.2 mm Hg (80.0-90.0) H 11/11/20 10:45 POC ABG HCO3 27.6 11/17/20 11:40 ABG HCO3 24.9 mmol/L (20.0-26.0) 11/11/20 10:45 ABG O2 Saturation 98.1 (0-100) 11/17/20 11:40 ABG O2 Content 19.4 (0.0-44) 11/11/20 10:45 POC ABG Base Excess 4.4 11/17/20 11:40 ABG Base Excess 1.9 mmol/L (-2.0-3.0) 11/11/20 10:45 ABG Hemoglobin 11.8 (12.0-17.5) L 11/17/20 11:40 ABG Oxyhemoglobin 97.4 (94-98) 11/17/20 11:40 ABG Carboxyhemoglobin 0.6 % (0.0-5.0) 11/11/20 10:45 ABG Methemoglobin 0.3 (0.0-1.5) 11/17/20 11:40 ABG Sodium 135.1 mmol/L (136.0-145.0) L 11/17/20 11:40 ABG Potassium 4.2 mmol/L (3.40-4.50) 11/17/20 11:40 ABG Chloride 102.0 mmol/L (98-107) 11/17/20 11:40 ABG Glucose 110 mg/dL (65-95) H 11/17/20 11:40 Oxyhemoglobin 98.5 % (95.0-99.0) 11/11/20 10:45 Carboxyhemoglobin 0.4 (0.5-1.5) L 11/17/20 11:40 FiO2 21 % 11/11/20 10:45 FiO2 % 30 11/17/20 11:40 Sodium 134 mmol/L (137-145) L 12/08/20 08:11 Potassium 4.5 mmol/L (3.6-5.0) 12/08/20 08:11 Chloride 99.2 mmol/L (98-107) 12/08/20 08:11 Carbon Dioxide 30 mmol/L (22-30) 12/08/20 08:11 Anion Gap 9 mmol/L 12/08/20 08:11 BUN 23 mg/dL (9-20) H 12/08/20 08:11 Creatinine 0.5 mg/dL (0.8-1.3) L 12/08/20 08:11 Estimated GFR > 60 ml/min 12/08/20 08:11 BUN/Creatinine Ratio 46 % 12/08/20 08:11 Glucose 126 mg/dL (75-100) H 12/08/20 08:11 POC Glucose 119 mg/dL (70-105) H 12/08/20 07:47 Hemoglobin A1c 5.4 % (4-6) 11/12/20 07:26 Osmolality 274 Mosm/kg 11/29/20 13:08 Uric Acid 1.7 mg/dL (3.5-7.6) L 11/29/20 13:08 Calcium 8.5 mg/dL (8.4-10.2) 12/08/20 08:11 Magnesium 2.00 mg/dL (1.7-2.3) 11/11/20 09:02 Total Bilirubin 0.40 mg/dL (0.1-1.2) 11/29/20 05:52 AST 42 units/L (5-40) H 11/29/20 05:52 ALT 30 units/L (7-56) 11/29/20 05:52 Alkaline Phosphatase 156 units/L (35-129) H 11/29/20 05:52 Ammonia 29.0 umol/L (25-60) 11/12/20 08:47 Total Creatine Kinase 169 units/L (55-170) 11/11/20 09:02 CK-MB (CK-2) 6.6 ng/mL (0.0-4.0) H 11/11/20 09:02 CK-MB (CK-2) Rel Index 3.9 (0-4) 11/11/20 09:02 Troponin T < 0.010 ng/mL (0.00-0.029) 11/11/20 09:02 Total Protein 7.8 g/dL (6.3-8.2) 11/29/20 05:52 Albumin 3.2 g/dL (3.9-5) L 11/29/20 05:52 Albumin/Globulin Ratio 0.7 % 11/29/20 05:52 TSH 5.610 mlU/mL (0.270-4.200) H 11/29/20 05:52 Free T4 1.24 ng/dL (0.76-1.46) 11/29/20 10:31 Total Cortisol 25.5 mcg/dL () 11/29/20 05:52 Arterial Blood Glucose 110 mg/dL (65-95) H 11/17/20 11:40 Arterial Blood Ionized Calcium 4.9 mg/dL (4.6-5.3) 11/17/20 11:40 Urine Color Jennifer (Yellow) 12/05/20 06:20 Urine Turbidity Slightly-cloudy (Clear) 12/05/20 06:20 Urine pH 7.0 (5.0-7.0) 12/05/20 06:20 Ur Specific [place] 1.025 (1.003-1.030) 12/05/20 06:20 Urine Protein 30 mg/dl mg/dL (Negative) 12/05/20 06:20 Urine Glucose (UA) Neg mg/dL (Negative) 12/05/20 06:20 Urine Ketones Neg mg/dL (Negative) 12/05/20 06:20 Urine Blood Neg (Negative) 12/05/20 06:20 Urine Nitrite Neg (Negative) 12/05/20 06:20 Urine Bilirubin Neg (Negative) 12/05/20 06:20 Urine Urobilinogen 4.0 mg/dL (<2.0) 12/05/20 06:20 Ur Leukocyte Esterase Sm (Negative) 12/05/20 06:20 Urine WBC (Auto) 13.0 /HPF (0.0-6.0) H 12/05/20 06:20 Urine RBC (Auto) 2.0 /HPF (0.0-6.0) 12/05/20 06:20 U Epithel Cells (Auto) 2.0 /HPF (0-13.0) 12/05/20 06:20 Urine Bacteria (Auto) 1+ /HPF (Negative) 12/05/20 06:20 Urine Mucus Few /HPF 12/05/20 06:20 Urine Osmolality 610 Mosm/kg 11/29/20 11:09 Urine Opiates Screen Negative 11/11/20 20:27 Urine Methadone Screen Negative 11/11/20 20:27 Ur Barbiturates Screen Positive 11/11/20 20:27 Ur Phencyclidine Scrn Negative 11/11/20 20:27 Ur Amphetamines Screen Negative 11/11/20 20:27 Phenobarbital 4.3 ug/mL (15.0-40.0) L 11/12/20 08:47 U Benzodiazepines Scrn Negative 11/11/20 20:27 Urine Cocaine Screen Negative 11/11/20 20:27 U Marijuana (THC) Screen Negative 11/11/20 20:27 Drugs of Abuse Note Disclamer 11/11/20 20:27 Plasma/Serum Alcohol < 0.01 % (0-0.07) 11/11/20 09:02 Coronavirus (PCR) Negative (Negative) 12/02/20 Unknown Microbiology: Microbiology 12/05/20 06:20 Urine,Clean Catch Urine Culture - Final [place]/IV: Voiding Method Condom Catheter Active Medications - Current Medications Current Medications: Generic Name Dose Route Start Last Admin Trade Name Freq PRN Reason Stop Dose Admin Acetaminophen 650 mg 11/11/20 22:58 12/07/20 21:13 Acetaminophen 325 Mg Tab PO 650 mg Q4H PRN Administration Pain MILD(1-3)/Fever >100.5/BAR Albuterol 2.5 mg 11/11/20 23:18 Albuterol 2.5 Mg/3 Ml Nebu IH Q3HRT PRN Wheezing Lipase/Protease/Amylase 1 each 11/12/20 12:00 Lipase 10,500/Protease 25,000/Amylase 43,750 (Units) Dr Rangel FEEDTUBE PRN PRN For Clogged Feeding Tube Dextrose 50 ml 11/11/20 22:11 11/17/20 23:29 Dextrose 50% In Water (25gm) 50 Ml Syringe IV 10 ml ONCE PRN Administration Hypoglycemia Protocol Enoxaparin Sodium 40 mg 11/12/20 22:00 12/08/20 02:28 Enoxaparin 40 Mg/0.4 Ml Inj SUB-Q 40 mg QDAY@2200 KIRK Administration Protocol Folic Acid 1 mg 11/16/20 10:00 12/08/20 10:10 Folic Acid 1 Mg Tab PO 1 mg DAILY KIRK Administration Hydralazine HCl 10 mg 11/12/20 10:30 11/14/20 07:30 Hydralazine 20 Mg/1 Ml Inj IV 10 mg Q4H PRN Administration Hypertension Hydrophilic Ointment 1 applic 11/11/20 09:14 Lip Therapy Vaseline TP Q2HR PRN Dry Lips Insulin Human Regular 0 units 11/12/20 18:00 12/08/20 06:27 Insulin Regular, Human 100 Units/1 Ml SUB-Q Not Given Q6H KIRK Protocol Lansoprazole 30 mg 11/24/20 10:00 12/08/20 10:11 Lansoprazole 30 Mg Solutab FEEDTUBE 30 mg QDAY KIRK Administration Levetiracetam 1,000 mg 11/24/20 10:00 12/08/20 10:11 Levetiracetam 500 Mg/5 Ml Oral Liqd FEEDTUBE 1,000 mg BID KIRK Administration Metoclopramide HCl 10 mg 11/11/20 22:58 Metoclopramide 10 Mg/2 Ml Inj IV Q6H PRN Nausea And Vomiting Multi-Ingred Cream/Lotion/Oil/Oint 1 applic 11/11/20 09:14 Mineral Oil/Petrolatum, White Ophth Oint 3.5 Gm OU Q4HR PRN Dry Eye(s) Multivitamins 1 each 11/13/20 00:00 12/08/20 02:24 Multivitamins ,Therapeutic Tab PO 1 each Q24H KIRK Administration Naloxone HCl 2 mg 11/11/20 08:33 Naloxone 0.4 Mg/1 Ml Inj IV Q2MIN PRN Res Rate </= 8 or 02 SAT < 92% Ondansetron HCl 4 mg 11/11/20 22:58 Ondansetron 4 Mg/2 Ml Inj IV Q3H PRN Nausea And Vomiting Phenobarbital 15 mg 11/11/20 23:45 12/08/20 10:11 Phenobarbital 15 Mg Tab PO 15 mg BID KIRK Administration Simple Syrup 15 ml 11/12/20 12:00 12/08/20 07:15 Simple Syrup 15 Ml FEEDTUBE 15 ml PRN PRN Administration Hypoglycemia Simple Syrup 30 ml 11/12/20 12:00 Simple Syrup 15 Ml FEEDTUBE PRN PRN Hypoglycemia Sodium Bicarbonate 325 mg 11/12/20 12:00 Sodium Bicarbonate 325 Mg Tab FEEDTUBE PRN PRN For Clogged Feeding Tube Sodium Chloride 10 ml 11/11/20 23:00 12/08/20 10:11 Sodium Chloride 0.9% 10 Ml Flush Syringe IV 10 ml BID KIRK Administration Sodium Chloride 10 ml 11/11/20 22:58 Sodium Chloride 0.9% 10 Ml Flush Syringe IV PRN PRN LINE FLUSH Sodium Chloride 2 gm 11/30/20 22:23 12/08/20 10:06 Sodium Chloride 1 Gm Tab PO 2 gm TID KIRK Administration Thiamine HCl 100 mg 11/16/20 10:00 12/08/20 10:10 Thiamine 100 Mg Tab PO 100 mg QDAY KIRK Administration Nutrition/Malnutrition Assess - Dietary Evaluation Nutrition/Malnutrition Findings: Nutrition Notes Start: 11/12/20 08:26 Freq: Status: Active Protocol: Document 12/02/20 13:55 JOHANA (Rec: 12/02/20 14:00 JOHANA [id number]) Nutrition Notes Initial or Follow up Brief Note Current Diet TF - Jevity 1.2 at 60ml/hr Labs/Tests Na 133 (improving) Height 5 ft 9 in Weight 58.4 kg [place] Body Weight (kg) 72.72 BMI 19.0 Subjective/Other Information Pt tolerating TF at goal rate. He is awaiting placement. Percent of energy/protein needs met: 100% energy/pro Is patient on ventilator? No Is Patient Ambulatory and/or Out of Bed No REE-([facility]-confined to bed) [phone] Calculation Used for Recommendations [facility] Additional Notes Pro needs 1.2-1.5g/k-88g/ day Fluid needs 1ml/kcal Nutrition Intervention Follow-Up By: 12/09/20 Additional Comments F/U: stable TF, wt, Na lab, water flushes
[2020-12-09] MEDS: INSULIN REGULAR, HUMAN 100 UNITS/1 ML SUB-Q SCH ×4 (00:30→18:15)
[2020-12-09 05:54] LABS: Blood Urea Nitrogen 18 mg/dL (9-20); Calcium 8.8 mg/dL (8.4-10.2); Hemolysis Index 1
[2020-12-09 05:56] LABS: BUN/Creatinine Ratio 45
[2020-12-09] MEDS: PHENobarbital 15 MG TAB PO SCH ×2 (09:41→21:09)
[2020-12-09] MEDS: LANSOPRAZOLE 30 MG SOLUTAB FEEDTUBE SCH (09:41)
[2020-12-09] MEDS: SODIUM CHLORIDE 1 GM TAB PO SCH ×3 (09:41→19:24)
[2020-12-09] MEDS: levETIRAcetam 500 MG/5 ML ORAL LIQD FEEDTUBE SCH ×2 (09:41→21:09)
[2020-12-09] MEDS: THIAMINE 100 MG TAB PO SCH (09:41)
[2020-12-09] MEDS: FOLIC ACID 1 MG TAB PO SCH (09:41)
--- NOTE | 2020-12-09 09:43 | Progress Note ---
Assessment and Plan 1. 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 Normal Cortisol level. Tolvaptan: 3/30(15 mg), 4/2(15 mg), 4/4 (15 mg). Continue Salt tablets. Monitor Sodium level. 2. Acute hypoxic respiratory failure: Now extubated. NC oxygen as needed. 3. Acute metabolic encephalopathy: MRI brain showed chronic changes. Monitor. 4. Seizure disorder: Continue antiseizure medications. 5 SIRS: COVID-19 test negative. Monitor. 6. 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 7. Dysphagia: S/p PEG placement. Subjective: Patient was seen and examined at the bedside. Objective: General appearance: well-developed, appears stated age, no distress noted HEENT: ATNC Neck: trachea midline Respiratory: ctab Heart: regular, S1S2, no murmur Gastrointestinal: soft, normoactive bowel sounds, not tender, PEG tube noted Integumentary: no rash, warm and dry Ext: no edema Neurologic: opens eyes, aphasic, not following any command Subjective Date of service: 12/09/20 Principal diagnosis: Neurogenic Dysphagia Objective - Vital Signs Vital signs: Vital Signs - 12hr 12/08/20 12/09/20 21:51 05:05 Temperature 97.9 F 98.2 F Pulse Rate 75 79 Respiratory 18 16 Rate Blood Pressure 145/61 135/66 O2 Sat by Pulse 100 97 Oximetry - Lab 12/06/20 08:33 12/09/20 04:49 Most recent lab results ABG pH 7.499 (7.320-7.450) H 11/17/20 11:40 ABG pCO2 33.9 mm Hg 11/11/20 10:45 ABG pO2 222.2 mm Hg (80.0-90.0) H 11/11/20 10:45 ABG HCO3 24.9 mmol/L (20.0-26.0) 11/11/20 10:45 ABG O2 Saturation 98.1 (0-100) 11/17/20 11:40 Calcium 8.8 mg/dL (8.4-10.2) 12/09/20 04:49 Magnesium 2.00 mg/dL (1.7-2.3) 11/11/20 09:02 Medications & Allergies - Medications Allergies/Adverse Reactions: Allergies No Known Allergies Allergy (Verified 02/24/18 09:21) Home Medications: Home Medications Medication Instructions Recorded Confirmed Last Taken Type PHENobarbitaL [PHENobarbital] 15 mg PO BID 30 Days #60 tablet 05/30/20 11/12/20 Unknown Rx levETIRAcetam [Keppra TAB] 500 mg PO BID #60 tablet 05/30/20 11/23/20 Unknown Rx Vitamin B-1 100 mg PO DAILY 08/12/20 11/12/20 Unknown History levETIRAcetam [Keppra TAB] 1,000 mg PO BID 30 Days #60 tab 08/12/20 11/23/20 Unknown Rx levETIRAcetam [Keppra TAB] 1,000 mg PO BID 90 Days #180 tab 10/01/20 11/23/20 Unknown Rx haloperidoL [Haloperidol] 5 mg PO ONCE 11/12/20 11/12/20 Unknown History Active Medications: Generic Name Dose Route Start Last Admin Trade Name Freq PRN Reason Stop Dose Admin Acetaminophen 650 mg 11/11/20 22:58 12/07/20 21:13 Acetaminophen 325 Mg Tab PO 650 mg Q4H PRN Administration Pain MILD(1-3)/Fever >100.5/BAR Albuterol 2.5 mg 11/11/20 23:18 Albuterol 2.5 Mg/3 Ml Nebu IH Q3HRT PRN Wheezing Lipase/Protease/Amylase 1 each 11/12/20 12:00 Lipase 10,500/Protease 25,000/Amylase 43,750 (Units) Dr Rangel FEEDTUBE PRN PRN For Clogged Feeding Tube Dextrose 50 ml 11/11/20 22:11 11/17/20 23:29 Dextrose 50% In Water (25gm) 50 Ml Syringe IV 10 ml ONCE PRN Administration Hypoglycemia Protocol Enoxaparin Sodium 40 mg 11/12/20 22:00 12/08/20 21:15 Enoxaparin 40 Mg/0.4 Ml Inj SUB-Q 40 mg QDAY@2200 KIRK Administration Protocol Folic Acid 1 mg 11/16/20 10:00 12/09/20 09:41 Folic Acid 1 Mg Tab PO 1 mg DAILY KIRK Administration Hydralazine HCl 10 mg 11/12/20 10:30 11/14/20 07:30 Hydralazine 20 Mg/1 Ml Inj IV 10 mg Q4H PRN Administration Hypertension Hydrophilic Ointment 1 applic 11/11/20 09:14 Lip Therapy Vaseline TP Q2HR PRN Dry Lips Insulin Human Regular 0 units 11/12/20 18:00 12/09/20 06:20 Insulin Regular, Human 100 Units/1 Ml SUB-Q Not Given Q6H KIRK Protocol Lansoprazole 30 mg 11/24/20 10:00 12/09/20 09:41 Lansoprazole 30 Mg Solutab FEEDTUBE 30 mg QDAY KIRK Administration Levetiracetam 1,000 mg 11/24/20 10:00 12/09/20 09:41 Levetiracetam 500 Mg/5 Ml Oral Liqd FEEDTUBE 1,000 mg BID KIRK Administration Metoclopramide HCl 10 mg 11/11/20 22:58 Metoclopramide 10 Mg/2 Ml Inj IV Q6H PRN Nausea And Vomiting Multi-Ingred Cream/Lotion/Oil/Oint 1 applic 11/11/20 09:14 Mineral Oil/Petrolatum, White Ophth Oint 3.5 Gm OU Q4HR PRN Dry Eye(s) Multivitamins 1 each 11/13/20 00:00 12/08/20 23:31 Multivitamins ,Therapeutic Tab PO 1 each Q24H KIRK Administration Naloxone HCl 2 mg 11/11/20 08:33 Naloxone 0.4 Mg/1 Ml Inj IV Q2MIN PRN Res Rate </= 8 or 02 SAT < 92% Ondansetron HCl 4 mg 11/11/20 22:58 Ondansetron 4 Mg/2 Ml Inj IV Q3H PRN Nausea And Vomiting Phenobarbital 15 mg 11/11/20 23:45 12/09/20 09:41 Phenobarbital 15 Mg Tab PO 15 mg BID KIRK Administration Simple Syrup 15 ml 11/12/20 12:00 12/08/20 07:15 Simple Syrup 15 Ml FEEDTUBE 15 ml PRN PRN Administration Hypoglycemia Simple Syrup 30 ml 11/12/20 12:00 Simple Syrup 15 Ml FEEDTUBE PRN PRN Hypoglycemia Sodium Bicarbonate 325 mg 11/12/20 12:00 Sodium Bicarbonate 325 Mg Tab FEEDTUBE PRN PRN For Clogged Feeding Tube Sodium Chloride 10 ml 11/11/20 23:00 12/09/20 09:41 Sodium Chloride 0.9% 10 Ml Flush Syringe IV 10 ml BID KIRK Administration Sodium Chloride 10 ml 11/11/20 22:58 Sodium Chloride 0.9% 10 Ml Flush Syringe IV PRN PRN LINE FLUSH Sodium Chloride 2 gm 11/30/20 22:23 12/09/20 09:41 Sodium Chloride 1 Gm Tab PO 2 gm TID KIRK Administration Thiamine HCl 100 mg 11/16/20 10:00 12/09/20 09:41 Thiamine 100 Mg Tab PO 100 mg QDAY IKRK Administration
--- NOTE | 2020-12-09 18:49 | Progress Note ---
Assessment and Plan Assessment and plan: COVID-19 test negative x 2 [ 11/12/2020, 11/23/2020] --Acute hypoxic respiratory failure requiring intubation Now extubated, Improved. Now on 2-1/2 L of oxygen Patient is saturating 97% on room air today --Acute toxic metabolic encephalopathy Multifactorial, due to seizures, SIRS, hyponatremia, abnormal thyroid functions Unknown baseline, treat the underlying cause,Has no ongoing infective process CT head ,MRI brain is negative, Continue supportive care --History of seizure disorder; Seizure precautions ,continue antiepileptic medications No new episodes of seizures, cannot drive CT head and brain MRI showed no acute etiology for seizure --SIRS Etiology unknown-urinalysis negative, chest x-ray also negative COVID-19 test negative, supportive care antibiotics DC'd --Needs ENT as outpatient for evaluation of upper airway. He has no carcinoma as written in previous notes Needs further evaluation of liver lesion with MRI as outpatient Also needs to follow up with pulmonary in the office --Dysphagia; s/p PEG placement, continue PEG care PEG feeds per protocol, aspiration precautions --Hyponatremia; Sodium today 129, continue replacement therapy Closely monitor electrolytes --Abnormal low TSH; Free T4 wnl -- Hypokalemia; No resolved --DVT prophylaxis-SCDs, Lovenox --GI prophylaxis-PPIs --Full CODE STATUS; Closely monitor the patient and adjust management as needed Patient is medically stable for discharge to hospice/SNF Case management processing DC planning 12/02. His sodium has improved. Awaiting placement. Has no family. Patient is a lui of the [facility]. He will need ENT evaluation with laryngoscopy at discharge. 12/03; potassium sodium continues to be low, continue current management nephrology following, awaiting placement 12/04: Awaiting placement. No issues noted overnight, Hypokalemia resolved. Monitor for aspiration precautions. Continue current management with nephrology 12/05: Overall poor prognosis considering his overall medical condition. He still very lethargic very drowsy and somnolent. Urinalysis yesterday reveals urinary tract infection. Will start patient on empiric antibiotics while awaiting cultures. Strongly recommend that hospice should be considered for this patient 12/06: Unfortunately remains chronically ill. I did discuss with Mr. Appiah the patient care provider. I have also advised him of his current condition and that this patient will benefit from hospice or at the very least palliative care. No clinical improvement patient opens his eyes on noxious stimuli but no other movement. Continue wound prevention measures. 12/07/2020; pending placement, possible hospice Plan of care reviewed with the patient's nurse and case management 12/08/2020; pending placement 12/09/2020; awaiting placement, possible hospice house DC planning per case management History Interval history: I have seen and examined the patient at the bedside Patient feels better awaiting placement Possible hospice house versus SNF No new complaints vital signs noted Hospitalist Physical - Constitutional Vitals: Temp Pulse Resp BP Pulse Ox 98.7 F 71 18 137/80 99 12/09/20 15:50 12/09/20 15:50 12/09/20 15:50 12/09/20 15:50 12/09/20 15:50 General appearance: Present: no acute distress, cachectic, disheveled, other (unresponsive) - EENT Eyes: Present: PERRL, EOM intact - Neck Neck: Present: supple, normal ROM - Respiratory Respiratory effort: normal Respiratory: bilateral: diminished, negative: rales, rhonchi, wheezing - Cardiovascular Rhythm: regular Heart Sounds: Present: S1 & S2 - Extremities Extremities: no ischemia, No edema - Abdominal General gastrointestinal: soft, non-tender, non-distended - Integumentary Integumentary: Present: clear, warm - Psychiatric Psychiatric: appropriate mood/affect, cooperative - Neurologic Neurologic: CNII-XII intact, moves all extremities HEART Score - HEART Score Troponin: Troponin T < 0.010 ng/mL (0.00-0.029) 11/11/20 09:02 Results - Labs CBC & Chem 7: 12/06/20 08:33 12/09/20 04:49 Labs: Laboratory Last Values WBC 12.8 K/mm3 (4.5-11.0) H 12/06/20 08:33 RBC 4.44 M/mm3 (3.65-5.03) 12/06/20 08:33 Hgb 12.5 gm/dl (11.8-15.2) 12/06/20 08:33 Hct 37.2 % (35.5-45.6) 12/06/20 08:33 MCV 84 fl (84-94) 12/06/20 08:33 MCH 28 pg (28-32) 12/06/20 08:33 MCHC 34 % (32-34) 12/06/20 08:33 RDW 15.3 % (13.2-15.2) H 12/06/20 08:33 Plt Count 428 K/mm3 (140-440) 12/06/20 08:33 Lymph % (Auto) 18.3 % (13.4-35.0) 11/26/20 06:23 [place] % (Auto) 9.8 % (0.0-7.3) H 11/26/20 06:23 Eos % (Auto) 1.1 % (0.0-4.3) 11/26/20 06:23 Baso % (Auto) 0.7 % (0.0-1.8) 11/26/20 06:23 Lymph # (Auto) 1.7 K/mm3 (1.2-5.4) 11/26/20 06:23 [place] # (Auto) 0.9 K/mm3 (0.0-0.8) H 11/26/20 06:23 Eos # (Auto) 0.1 K/mm3 (0.0-0.4) 11/26/20 06:23 Baso # (Auto) 0.1 K/mm3 (0.0-0.1) 11/26/20 06:23 Add Manual Diff Complete 11/29/20 05:52 Total Counted 100 11/29/20 05:52 Seg Neutrophils % 70.1 % (40.0-70.0) H 11/26/20 06:23 Seg Neuts % (Manual) 76.0 % (40.0-70.0) H 11/29/20 05:52 Lymphocytes % (Manual) 10.0 % (13.4-35.0) L 11/29/20 05:52 Reactive Lymphs % (Man) 4.0 % 11/27/20 05:50 Monocytes % (Manual) 10.0 % (0.0-7.3) H 11/29/20 05:52 Eosinophils % (Manual) 3.0 % (0.0-4.3) 11/29/20 05:52 Metamyelocytes % 1.0 % 11/29/20 05:52 Nucleated RBC % Not Reportable 11/29/20 05:52 Seg Neutrophils # 9.5 K/mm3 (1.8-7.7) H 11/26/20 06:23 Seg Neutrophils # Man 7.4 K/mm3 (1.8-7.7) 11/29/20 05:52 Band Neutrophils # 0.0 K/mm3 11/29/20 05:52 Lymphocytes # (Manual) 1.0 K/mm3 (1.2-5.4) L 11/29/20 05:52 Abs React Lymphs (Man) 0.0 K/mm3 11/29/20 05:52 Monocytes # (Manual) 1.0 K/mm3 (0.0-0.8) H 11/29/20 05:52 Eosinophils # (Manual) 0.3 K/mm3 (0.0-0.4) 11/29/20 05:52 Basophils # (Manual) 0.0 K/mm3 (0.0-0.1) 11/29/20 05:52 Metamyelocytes # 0.1 K/mm3 11/29/20 05:52 Myelocytes # 0.0 K/mm3 11/29/20 05:52 Promyelocytes # 0.0 K/mm3 11/29/20 05:52 Blast Cells # 0.0 K/mm3 11/29/20 05:52 WBC Morphology Not Reportable 11/29/20 05:52 Hypersegmented Neuts Not Reportable 11/29/20 05:52 Hyposegmented Neuts Not Reportable 11/29/20 05:52 Hypogranular Neuts Not Reportable 11/29/20 05:52 Smudge Cells Not Reportable 11/29/20 05:52 Toxic Granulation Not Reportable 11/29/20 05:52 Toxic Vacuolation Not Reportable 11/29/20 05:52 Dohle Bodies Not Reportable 11/29/20 05:52 Pelger-Huet Anomaly Not Reportable 11/29/20 05:52 Fercho Rods Not Reportable 11/29/20 05:52 Platelet Estimate Consistent w auto 11/29/20 05:52 Clumped Platelets Not Reportable 11/29/20 05:52 Plt Clumps, EDTA Not Reportable 11/29/20 05:52 Large Platelets Not Reportable 11/29/20 05:52 Giant Platelets Not Reportable 11/29/20 05:52 Platelet Satelliting Not Reportable 11/29/20 05:52 Plt Morphology Comment Not Reportable 11/29/20 05:52 RBC Morphology Not Reportable 11/29/20 05:52 Dimorphic RBCs Not Reportable 11/29/20 05:52 Polychromasia Not Reportable 11/29/20 05:52 Hypochromasia Not Reportable 11/29/20 05:52 Poikilocytosis Not Reportable 11/29/20 05:52 Anisocytosis Few 11/29/20 05:52 Microcytosis Not Reportable 11/29/20 05:52 Macrocytosis Not Reportable 11/29/20 05:52 Spherocytes Not Reportable 11/29/20 05:52 Pappenheimer Bodies Not Reportable 11/29/20 05:52 Sickle Cells Not Reportable 11/29/20 05:52 Target Cells Few 11/29/20 05:52 Tear Drop Cells Not Reportable 11/29/20 05:52 Ovalocytes Not Reportable 11/29/20 05:52 Helmet Cells Not Reportable 11/29/20 05:52 Kim-Barnett Bodies Not Reportable 11/29/20 05:52 Perley Rings Not Reportable 11/29/20 05:52 [place] Cells Not Reportable 11/29/20 05:52 Bite Cells Not Reportable 11/29/20 05:52 Crenated Cell Not Reportable 11/29/20 05:52 Elliptocytes Not Reportable 11/29/20 05:52 Acanthocytes (Spur) Not Reportable 11/29/20 05:52 Rouleaux Not Reportable 11/29/20 05:52 Hemoglobin C Crystals Not Reportable 11/29/20 05:52 Schistocytes Not Reportable 11/29/20 05:52 Malaria parasites Not Reportable 11/29/20 05:52 Jones Bodies Not Reportable 11/29/20 05:52 Hem Pathologist Commnt No 11/29/20 05:52 PT 11.5 Sec. (12.2-14.9) L 11/11/20 09:02 INR 0.86 (0.87-1.13) L 11/11/20 09:02 APTT 25.5 Sec. (24.2-36.6) 11/11/20 09:02 Thrombin Time 17.0 Sec. (15.1-19.6) 11/11/20 09:02 ABG pH 7.499 (7.320-7.450) H 11/17/20 11:40 POC ABG pCO2 36.3 mmHg (32.0-48.0) 11/17/20 11:40 ABG pCO2 33.9 mm Hg 11/11/20 10:45 POC ABG pO2 140.8 mmHg (83-108) H 11/17/20 11:40 ABG pO2 222.2 mm Hg (80.0-90.0) H 11/11/20 10:45 POC ABG HCO3 27.6 11/17/20 11:40 ABG HCO3 24.9 mmol/L (20.0-26.0) 11/11/20 10:45 ABG O2 Saturation 98.1 (0-100) 11/17/20 11:40 ABG O2 Content 19.4 (0.0-44) 11/11/20 10:45 POC ABG Base Excess 4.4 11/17/20 11:40 ABG Base Excess 1.9 mmol/L (-2.0-3.0) 11/11/20 10:45 ABG Hemoglobin 11.8 (12.0-17.5) L 11/17/20 11:40 ABG Oxyhemoglobin 97.4 (94-98) 11/17/20 11:40 ABG Carboxyhemoglobin 0.6 % (0.0-5.0) 11/11/20 10:45 ABG Methemoglobin 0.3 (0.0-1.5) 11/17/20 11:40 ABG Sodium 135.1 mmol/L (136.0-145.0) L 11/17/20 11:40 ABG Potassium 4.2 mmol/L (3.40-4.50) 11/17/20 11:40 ABG Chloride 102.0 mmol/L (98-107) 11/17/20 11:40 ABG Glucose 110 mg/dL (65-95) H 11/17/20 11:40 Oxyhemoglobin 98.5 % (95.0-99.0) 11/11/20 10:45 Carboxyhemoglobin 0.4 (0.5-1.5) L 11/17/20 11:40 FiO2 21 % 11/11/20 10:45 FiO2 % 30 11/17/20 11:40 Sodium 131 mmol/L (137-145) L 12/09/20 04:49 Potassium 4.2 mmol/L (3.6-5.0) 12/09/20 04:49 Chloride 96.5 mmol/L (98-107) L 12/09/20 04:49 Carbon Dioxide 28 mmol/L (22-30) 12/09/20 04:49 Anion Gap 11 mmol/L 12/09/20 04:49 BUN 18 mg/dL (9-20) 12/09/20 04:49 Creatinine 0.4 mg/dL (0.8-1.3) L 12/09/20 04:49 Estimated GFR > 60 ml/min 12/09/20 04:49 BUN/Creatinine Ratio 45 % 12/09/20 04:49 Glucose 102 mg/dL (75-100) H 12/09/20 04:49 POC Glucose 111 mg/dL (70-105) H 12/09/20 11:22 Hemoglobin A1c 5.4 % (4-6) 11/12/20 07:26 Osmolality 274 Mosm/kg 11/29/20 13:08 Uric Acid 1.7 mg/dL (3.5-7.6) L 11/29/20 13:08 Calcium 8.8 mg/dL (8.4-10.2) 12/09/20 04:49 Magnesium 2.00 mg/dL (1.7-2.3) 11/11/20 09:02 Total Bilirubin 0.40 mg/dL (0.1-1.2) 11/29/20 05:52 AST 42 units/L (5-40) H 11/29/20 05:52 ALT 30 units/L (7-56) 11/29/20 05:52 Alkaline Phosphatase 156 units/L (35-129) H 11/29/20 05:52 Ammonia 29.0 umol/L (25-60) 11/12/20 08:47 Total Creatine Kinase 169 units/L (55-170) 11/11/20 09:02 CK-MB (CK-2) 6.6 ng/mL (0.0-4.0) H 11/11/20 09:02 CK-MB (CK-2) Rel Index 3.9 (0-4) 11/11/20 09:02 Troponin T < 0.010 ng/mL (0.00-0.029) 11/11/20 09:02 Total Protein 7.8 g/dL (6.3-8.2) 11/29/20 05:52 Albumin 3.2 g/dL (3.9-5) L 11/29/20 05:52 Albumin/Globulin Ratio 0.7 % 11/29/20 05:52 TSH 5.610 mlU/mL (0.270-4.200) H 11/29/20 05:52 Free T4 1.24 ng/dL (0.76-1.46) 11/29/20 10:31 Total Cortisol 25.5 mcg/dL () 11/29/20 05:52 Arterial Blood Glucose 110 mg/dL (65-95) H 11/17/20 11:40 Arterial Blood Ionized Calcium 4.9 mg/dL (4.6-5.3) 11/17/20 11:40 Urine Color Jennifer (Yellow) 12/05/20 06:20 Urine Turbidity Slightly-cloudy (Clear) 12/05/20 06:20 Urine pH 7.0 (5.0-7.0) 12/05/20 06:20 Ur Specific [place] 1.025 (1.003-1.030) 12/05/20 06:20 Urine Protein 30 mg/dl mg/dL (Negative) 12/05/20 06:20 Urine Glucose (UA) Neg mg/dL (Negative) 12/05/20 06:20 Urine Ketones Neg mg/dL (Negative) 12/05/20 06:20 Urine Blood Neg (Negative) 12/05/20 06:20 Urine Nitrite Neg (Negative) 12/05/20 06:20 Urine Bilirubin Neg (Negative) 12/05/20 06:20 Urine Urobilinogen 4.0 mg/dL (<2.0) 12/05/20 06:20 Ur Leukocyte Esterase Sm (Negative) 12/05/20 06:20 Urine WBC (Auto) 13.0 /HPF (0.0-6.0) H 12/05/20 06:20 Urine RBC (Auto) 2.0 /HPF (0.0-6.0) 12/05/20 06:20 U Epithel Cells (Auto) 2.0 /HPF (0-13.0) 12/05/20 06:20 Urine Bacteria (Auto) 1+ /HPF (Negative) 12/05/20 06:20 Urine Mucus Few /HPF 12/05/20 06:20 Urine Osmolality 610 Mosm/kg 11/29/20 11:09 Urine Opiates Screen Negative 11/11/20 20:27 Urine Methadone Screen Negative 11/11/20 20:27 Ur Barbiturates Screen Positive 11/11/20 20:27 Ur Phencyclidine Scrn Negative 11/11/20 20:27 Ur Amphetamines Screen Negative 11/11/20 20:27 Phenobarbital 4.3 ug/mL (15.0-40.0) L 11/12/20 08:47 U Benzodiazepines Scrn Negative 11/11/20 20:27 Urine Cocaine Screen Negative 11/11/20 20:27 U Marijuana (THC) Screen Negative 11/11/20 20:27 Drugs of Abuse Note Disclamer 11/11/20 20:27 Plasma/Serum Alcohol < 0.01 % (0-0.07) 11/11/20 09:02 Coronavirus (PCR) Negative (Negative) 12/02/20 Unknown [place]/IV: Voiding Method Condom Catheter Active Medications - Current Medications Current Medications: Generic Name Dose Route Start Last Admin Trade Name Freq PRN Reason Stop Dose Admin Acetaminophen 650 mg 11/11/20 22:58 12/07/20 21:13 Acetaminophen 325 Mg Tab PO 650 mg Q4H PRN Administration Pain MILD(1-3)/Fever >100.5/BAR Albuterol 2.5 mg 11/11/20 23:18 Albuterol 2.5 Mg/3 Ml Nebu IH Q3HRT PRN Wheezing Lipase/Protease/Amylase 1 each 11/12/20 12:00 Lipase 10,500/Protease 25,000/Amylase 43,750 (Units) Dr Rangel FEEDTUBE PRN PRN For Clogged Feeding Tube Dextrose 50 ml 11/11/20 22:11 11/17/20 23:29 Dextrose 50% In Water (25gm) 50 Ml Syringe IV 10 ml ONCE PRN Administration Hypoglycemia Protocol Enoxaparin Sodium 40 mg 11/12/20 22:00 12/08/20 21:15 Enoxaparin 40 Mg/0.4 Ml Inj SUB-Q 40 mg QDAY@2200 KIRK Administration Protocol Folic Acid 1 mg 11/16/20 10:00 12/09/20 09:41 Folic Acid 1 Mg Tab PO 1 mg DAILY KIRK Administration Hydralazine HCl 10 mg 11/12/20 10:30 11/14/20 07:30 Hydralazine 20 Mg/1 Ml Inj IV 10 mg Q4H PRN Administration Hypertension Hydrophilic Ointment 1 applic 11/11/20 09:14 Lip Therapy Vaseline TP Q2HR PRN Dry Lips Insulin Human Regular 0 units 11/12/20 18:00 12/09/20 18:15 Insulin Regular, Human 100 Units/1 Ml SUB-Q Not Given Q6H KIRK Protocol Lansoprazole 30 mg 11/24/20 10:00 12/09/20 09:41 Lansoprazole 30 Mg Solutab FEEDTUBE 30 mg QDAY KIRK Administration Levetiracetam 1,000 mg 11/24/20 10:00 12/09/20 09:41 Levetiracetam 500 Mg/5 Ml Oral Liqd FEEDTUBE 1,000 mg BID KIRK Administration Metoclopramide HCl 10 mg 11/11/20 22:58 Metoclopramide 10 Mg/2 Ml Inj IV Q6H PRN Nausea And Vomiting Multi-Ingred Cream/Lotion/Oil/Oint 1 applic 11/11/20 09:14 Mineral Oil/Petrolatum, White Ophth Oint 3.5 Gm OU Q4HR PRN Dry Eye(s) Multivitamins 1 each 11/13/20 00:00 12/08/20 23:31 Multivitamins ,Therapeutic Tab PO 1 each Q24H KIRK Administration Naloxone HCl 2 mg 11/11/20 08:33 Naloxone 0.4 Mg/1 Ml Inj IV Q2MIN PRN Res Rate </= 8 or 02 SAT < 92% Ondansetron HCl 4 mg 11/11/20 22:58 Ondansetron 4 Mg/2 Ml Inj IV Q3H PRN Nausea And Vomiting Phenobarbital 15 mg 11/11/20 23:45 12/09/20 09:41 Phenobarbital 15 Mg Tab PO 15 mg BID KIRK Administration Simple Syrup 15 ml 11/12/20 12:00 12/08/20 07:15 Simple Syrup 15 Ml FEEDTUBE 15 ml PRN PRN Administration Hypoglycemia Simple Syrup 30 ml 11/12/20 12:00 Simple Syrup 15 Ml FEEDTUBE PRN PRN Hypoglycemia Sodium Bicarbonate 325 mg 11/12/20 12:00 Sodium Bicarbonate 325 Mg Tab FEEDTUBE PRN PRN For Clogged Feeding Tube Sodium Chloride 10 ml 11/11/20 23:00 12/09/20 09:41 Sodium Chloride 0.9% 10 Ml Flush Syringe IV 10 ml BID KIRK Administration Sodium Chloride 10 ml 11/11/20 22:58 Sodium Chloride 0.9% 10 Ml Flush Syringe IV PRN PRN LINE FLUSH Sodium Chloride 2 gm 11/30/20 22:23 12/09/20 13:42 Sodium Chloride 1 Gm Tab PO 2 gm TID KIRK Administration Thiamine HCl 100 mg 11/16/20 10:00 12/09/20 09:41 Thiamine 100 Mg Tab PO 100 mg QDAY KIRK Administration Tolvaptan 15 mg 12/09/20 19:00 Tolvaptan 15 Mg Tab PO 12/09/20 19:01 ONCE ONE Nutrition/Malnutrition Assess - Dietary Evaluation Nutrition/Malnutrition Findings: Nutrition Notes Start: 11/12/20 08:26 Freq: Status: Active Protocol: Document 12/09/20 11:30 (Rec: 12/09/20 11:33 [email or web address]) Nutrition Notes Initial or Follow up Brief Note Current Diagnosis Respiratory Failure,Stroke Other Pertinent Diagnosis Seizures, Neurogenic Dysphagia Current Diet TF - Jevity 1.2 at 60ml/hr Labs/Tests Na 131 Cr 0.4 Pertinent Medications NaCl 2 grams Height 5 ft 9 in Weight 61 kg Moss Body Weight (kg) 72.72 BMI 19.8 Weight Status Underweight Subjective/Other Information FU for tolerance. Pt tolerating TF at goal rate. Percent of energy/protein needs met: 100% energy/pro Burn Absent Trauma Absent GI Symptoms None Difficulty In Swallowing Current % PO Negligible Minimum of two criteria No Interpretation of Weight Loss (severe) >5% in 1 month #2 Nutrition Diagnosis Inadequate energy intake Diagnosis Progress(for reassessment Continues documentation) #1 Nutrition Diagnosis Inadequate oral intake Diagnosis Progress(for reassessment Continues documentation) Is patient on ventilator? No Is Patient Ambulatory and/or Out of Bed No REE-([facility]-confined to bed) 4218.545 Calculation Used for Recommendations [facility] Additional Notes Pro needs 1.2-1.5g/k-88g/ day Fluid needs 1ml/kcal Nutrition Intervention Change Diet Order: TF Nutrition Support: Jevity 1.2 at 60 ml/hr Flush 50 mL q4h Kcal 1,728 Protein (gm) 80 Fluid (mL) 1,162 Goal #1 Meet at least 75% of estimated energy and protein needs via TF Goal #2 weight stability/increase Anticipated Discharge Needs: TF Jevity 1.2 at 60 ml/hr Follow-Up By: 12/16/20 Additional Comments FU for stable TF
[2020-12-09] MEDS ORDERED: TOLVAPTAN 15 MG TAB PO ONE (19:00)
[2020-12-09] MEDS: ENOXAPARIN 40 MG/0.4 ML INJ SUB-Q SCH (21:09)
[2020-12-10] MEDS: INSULIN REGULAR, HUMAN 100 UNITS/1 ML SUB-Q SCH ×4 (00:19→17:01)
[2020-12-10] MEDS: MULTIVITAMINS ,THERAPEUTIC TAB PO SCH ×2 (00:19→23:03)
[2020-12-10 06:54] LABS: Blood Urea Nitrogen 19 mg/dL (9-20); Calcium 8.8 mg/dL (8.4-10.2); Hemolysis Index 3
[2020-12-10 06:55] LABS: BUN/Creatinine Ratio 38
--- NOTE | 2020-12-10 08:18 | Progress Note ---
Assessment and Plan 1. 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 Normal Cortisol level. Tolvaptan 15 m/30, 12/03, 12/05, 12/09. Continue Salt tablets. Monitor Sodium level. 2. Acute hypoxic respiratory failure: Now extubated. NC oxygen as needed. 3. Acute metabolic encephalopathy: MRI brain showed chronic changes. Monitor. 4. Seizure disorder: Continue antiseizure medications. 5 SIRS: COVID-19 test negative. Monitor. 6. 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 7. Dysphagia: S/p PEG placement. Subjective: Patient was seen and examined at the bedside. Objective: General appearance: well-developed, appears stated age, no distress noted HEENT: ATNC Neck: trachea midline Respiratory: ctab Heart: regular, S1S2, no murmur Gastrointestinal: soft, normoactive bowel sounds, not tender, PEG tube noted Integumentary: no rash, warm and dry Ext: no edema Neurologic: opens eyes, aphasic, not following any command Subjective Date of service: 12/10/20 Principal diagnosis: Neurogenic Dysphagia Objective - Vital Signs Vital signs: Vital Signs - 12hr 12/09/20 12/10/20 22:30 05:11 Temperature 98.5 F 99.0 F Pulse Rate 79 86 Respiratory 17 16 Rate Blood Pressure 128/78 119/78 O2 Sat by Pulse 98 97 Oximetry - Lab 12/06/20 08:33 12/10/20 05:30 Most recent lab results ABG pH 7.499 (7.320-7.450) H 11/17/20 11:40 ABG pCO2 33.9 mm Hg 11/11/20 10:45 ABG pO2 222.2 mm Hg (80.0-90.0) H 11/11/20 10:45 ABG HCO3 24.9 mmol/L (20.0-26.0) 11/11/20 10:45 ABG O2 Saturation 98.1 (0-100) 11/17/20 11:40 Calcium 8.8 mg/dL (8.4-10.2) 12/10/20 05:30 Magnesium 2.00 mg/dL (1.7-2.3) 11/11/20 09:02 Medications & Allergies - Medications Allergies/Adverse Reactions: Allergies No Known Allergies Allergy (Verified 02/24/18 09:21) Home Medications: Home Medications Medication Instructions Recorded Confirmed Last Taken Type PHENobarbitaL [PHENobarbital] 15 mg PO BID 30 Days #60 tablet 05/30/20 11/12/20 Unknown Rx levETIRAcetam [Keppra TAB] 500 mg PO BID #60 tablet 05/30/20 11/23/20 Unknown Rx Vitamin B-1 100 mg PO DAILY 08/12/20 11/12/20 Unknown History levETIRAcetam [Keppra TAB] 1,000 mg PO BID 30 Days #60 tab 08/12/20 11/23/20 Unknown Rx levETIRAcetam [Keppra TAB] 1,000 mg PO BID 90 Days #180 tab 10/01/20 11/23/20 Unknown Rx haloperidoL [Haloperidol] 5 mg PO ONCE 11/12/20 11/12/20 Unknown History Active Medications: Generic Name Dose Route Start Last Admin Trade Name Freq PRN Reason Stop Dose Admin Acetaminophen 650 mg 11/11/20 22:58 12/07/20 21:13 Acetaminophen 325 Mg Tab PO 650 mg Q4H PRN Administration Pain MILD(1-3)/Fever >100.5/BAR Albuterol 2.5 mg 11/11/20 23:18 Albuterol 2.5 Mg/3 Ml Nebu IH Q3HRT PRN Wheezing Lipase/Protease/Amylase 1 each 11/12/20 12:00 Lipase 10,500/Protease 25,000/Amylase 43,750 (Units) Dr Rangel FEEDTUBE PRN PRN For Clogged Feeding Tube Dextrose 50 ml 11/11/20 22:11 11/17/20 23:29 Dextrose 50% In Water (25gm) 50 Ml Syringe IV 10 ml ONCE PRN Administration Hypoglycemia Protocol Enoxaparin Sodium 40 mg 11/12/20 22:00 12/09/20 21:09 Enoxaparin 40 Mg/0.4 Ml Inj SUB-Q 40 mg QDAY@2200 KIRK Administration Protocol Folic Acid 1 mg 11/16/20 10:00 12/09/20 09:41 Folic Acid 1 Mg Tab PO 1 mg DAILY KIRK Administration Hydralazine HCl 10 mg 11/12/20 10:30 11/14/20 07:30 Hydralazine 20 Mg/1 Ml Inj IV 10 mg Q4H PRN Administration Hypertension Hydrophilic Ointment 1 applic 11/11/20 09:14 Lip Therapy Vaseline TP Q2HR PRN Dry Lips Insulin Human Regular 0 units 11/12/20 18:00 12/10/20 06:32 Insulin Regular, Human 100 Units/1 Ml SUB-Q Not Given Q6H [facility] Protocol Lansoprazole 30 mg 11/24/20 10:00 12/09/20 09:41 Lansoprazole 30 Mg Solutab FEEDTUBE 30 mg QDAY KIRK Administration Levetiracetam 1,000 mg 11/24/20 10:00 12/09/20 21:09 Levetiracetam 500 Mg/5 Ml Oral Liqd FEEDTUBE 1,000 mg BID KIRK Administration Metoclopramide HCl 10 mg 11/11/20 22:58 Metoclopramide 10 Mg/2 Ml Inj IV Q6H PRN Nausea And Vomiting Multi-Ingred Cream/Lotion/Oil/Oint 1 applic 11/11/20 09:14 Mineral Oil/Petrolatum, White Ophth Oint 3.5 Gm OU Q4HR PRN Dry Eye(s) Multivitamins 1 each 11/13/20 00:00 12/10/20 00:19 Multivitamins ,Therapeutic Tab PO 1 each Q24H KIRK Administration Naloxone HCl 2 mg 11/11/20 08:33 Naloxone 0.4 Mg/1 Ml Inj IV Q2MIN PRN Res Rate </= 8 or 02 SAT < 92% Ondansetron HCl 4 mg 11/11/20 22:58 Ondansetron 4 Mg/2 Ml Inj IV Q3H PRN Nausea And Vomiting Phenobarbital 15 mg 11/11/20 23:45 12/09/20 21:09 Phenobarbital 15 Mg Tab PO 15 mg BID KIRK Administration Simple Syrup 15 ml 11/12/20 12:00 12/08/20 07:15 Simple Syrup 15 Ml FEEDTUBE 15 ml PRN PRN Administration Hypoglycemia Simple Syrup 30 ml 11/12/20 12:00 Simple Syrup 15 Ml FEEDTUBE PRN PRN Hypoglycemia Sodium Bicarbonate 325 mg 11/12/20 12:00 Sodium Bicarbonate 325 Mg Tab FEEDTUBE PRN PRN For Clogged Feeding Tube Sodium Chloride 10 ml 11/11/20 23:00 12/09/20 21:09 Sodium Chloride 0.9% 10 Ml Flush Syringe IV 10 ml BID KIRK Administration Sodium Chloride 10 ml 11/11/20 22:58 Sodium Chloride 0.9% 10 Ml Flush Syringe IV PRN PRN LINE FLUSH Sodium Chloride 2 gm 11/30/20 22:23 12/09/20 19:24 Sodium Chloride 1 Gm Tab PO 2 gm TID KIRK Administration Thiamine HCl 100 mg 11/16/20 10:00 12/09/20 09:41 Thiamine 100 Mg Tab PO 100 mg QDAY KIRK Administration
[2020-12-10] MEDS: SODIUM CHLORIDE 1 GM TAB PO SCH ×3 (09:54→19:33)
[2020-12-10] MEDS: LANSOPRAZOLE 30 MG SOLUTAB FEEDTUBE SCH (09:54)
[2020-12-10] MEDS: PHENobarbital 15 MG TAB PO SCH ×2 (09:54→21:02)
[2020-12-10] MEDS: levETIRAcetam 500 MG/5 ML ORAL LIQD FEEDTUBE SCH ×2 (09:54→21:02)
[2020-12-10] MEDS: THIAMINE 100 MG TAB PO SCH (09:55)
[2020-12-10] MEDS: FOLIC ACID 1 MG TAB PO SCH (09:55)
--- NOTE | 2020-12-10 10:57 | Progress Note ---
Assessment and Plan Assessment and plan: COVID-19 test negative x 2 [ 11/12/2020, 11/23/2020] --Acute hypoxic respiratory failure requiring intubation Now extubated, Improved. Now on 2-1/2 L of oxygen Patient is saturating 97% on room air today --Acute toxic metabolic encephalopathy Multifactorial, due to seizures, SIRS, hyponatremia, abnormal thyroid functions Unknown baseline, treat the underlying cause,Has no ongoing infective process CT head ,MRI brain is negative, Continue supportive care --History of seizure disorder; Seizure precautions ,continue antiepileptic medications No new episodes of seizures, cannot drive CT head and brain MRI showed no acute etiology for seizure --SIRS Etiology unknown-urinalysis negative, chest x-ray also negative COVID-19 test negative, supportive care antibiotics DC'd --Needs ENT as outpatient for evaluation of upper airway. He has no carcinoma as written in previous notes Needs further evaluation of liver lesion with MRI as outpatient Also needs to follow up with pulmonary in the office --Dysphagia; s/p PEG placement, continue PEG care PEG feeds per protocol, aspiration precautions --Hyponatremia; Sodium today 129, continue replacement therapy Closely monitor electrolytes --Abnormal low TSH; Free T4 wnl -- Hypokalemia; No resolved --DVT prophylaxis-SCDs, Lovenox --GI prophylaxis-PPIs --Full CODE STATUS; Closely monitor the patient and adjust management as needed Patient is medically stable for discharge to hospice/SNF Case management processing DC planning 12/02. His sodium has improved. Awaiting placement. Has no family. Patient is a lui of the [facility]. He will need ENT evaluation with laryngoscopy at discharge. 12/03; potassium sodium continues to be low, continue current management nephrology following, awaiting placement 12/04: Awaiting placement. No issues noted overnight, Hypokalemia resolved. Monitor for aspiration precautions. Continue current management with nephrology 12/05: Overall poor prognosis considering his overall medical condition. He still very lethargic very drowsy and somnolent. Urinalysis yesterday reveals urinary tract infection. Will start patient on empiric antibiotics while awaiting cultures. Strongly recommend that hospice should be considered for this patient 12/06: Unfortunately remains chronically ill. I did discuss with Mr. Appiah the patient care provider. I have also advised him of his current condition and that this patient will benefit from hospice or at the very least palliative care. No clinical improvement patient opens his eyes on noxious stimuli but no other movement. Continue wound prevention measures. 12/07/2020; pending placement, possible hospice Plan of care reviewed with the patient's nurse and case management 12/08/2020; pending placement 12/09/2020; awaiting placement, possible hospice house DC planning per case management 12/10/20; awaiting placement, medically stable History Interval history: I have seen and examined the patient at the bedside Patient's chart and medications reviewed Patient is awaiting placement Noncommunicative Chronically ill looking cachectic Vital signs noted Hospitalist Physical - Constitutional Vitals: Temp Pulse Resp BP Pulse Ox 99.0 F 86 18 119/78 97 12/10/20 05:11 12/10/20 05:11 12/10/20 10:00 12/10/20 05:11 12/10/20 05:11 General appearance: Present: no acute distress, cachectic, disheveled, other (unresponsive) - EENT Eyes: Present: PERRL, EOM intact - Neck Neck: Present: supple, normal ROM - Respiratory Respiratory effort: normal Respiratory: bilateral: diminished, negative: rales, wheezing - Cardiovascular Rhythm: regular Heart Sounds: Present: S1 & S2 - Extremities Extremities: no ischemia, No edema - Abdominal General gastrointestinal: soft, non-tender, non-distended - Integumentary Integumentary: Present: clear, warm - Psychiatric Psychiatric: other (Noncommunicative) - Neurologic Neurologic: moves all extremities, other (Noncommunicative) HEART Score - HEART Score Troponin: Troponin T < 0.010 ng/mL (0.00-0.029) 11/11/20 09:02 Results - Labs CBC & Chem 7: 12/06/20 08:33 12/10/20 05:30 Labs: Laboratory Last Values WBC 12.8 K/mm3 (4.5-11.0) H 12/06/20 08:33 RBC 4.44 M/mm3 (3.65-5.03) 12/06/20 08:33 Hgb 12.5 gm/dl (11.8-15.2) 12/06/20 08:33 Hct 37.2 % (35.5-45.6) 12/06/20 08:33 MCV 84 fl (84-94) 12/06/20 08:33 MCH 28 pg (28-32) 12/06/20 08:33 MCHC 34 % (32-34) 12/06/20 08:33 RDW 15.3 % (13.2-15.2) H 12/06/20 08:33 Plt Count 428 K/mm3 (140-440) 12/06/20 08:33 Lymph % (Auto) 18.3 % (13.4-35.0) 11/26/20 06:23 Mineral % (Auto) 9.8 % (0.0-7.3) H 11/26/20 06:23 Eos % (Auto) 1.1 % (0.0-4.3) 11/26/20 06:23 Baso % (Auto) 0.7 % (0.0-1.8) 11/26/20 06:23 Lymph # (Auto) 1.7 K/mm3 (1.2-5.4) 11/26/20 06:23 Mineral # (Auto) 0.9 K/mm3 (0.0-0.8) H 11/26/20 06:23 Eos # (Auto) 0.1 K/mm3 (0.0-0.4) 11/26/20 06:23 Baso # (Auto) 0.1 K/mm3 (0.0-0.1) 11/26/20 06:23 Add Manual Diff Complete 11/29/20 05:52 Total Counted 100 11/29/20 05:52 Seg Neutrophils % 70.1 % (40.0-70.0) H 11/26/20 06:23 Seg Neuts % (Manual) 76.0 % (40.0-70.0) H 11/29/20 05:52 Lymphocytes % (Manual) 10.0 % (13.4-35.0) L 11/29/20 05:52 Reactive Lymphs % (Man) 4.0 % 11/27/20 05:50 Monocytes % (Manual) 10.0 % (0.0-7.3) H 11/29/20 05:52 Eosinophils % (Manual) 3.0 % (0.0-4.3) 11/29/20 05:52 Metamyelocytes % 1.0 % 11/29/20 05:52 Nucleated RBC % Not Reportable 11/29/20 05:52 Seg Neutrophils # 9.5 K/mm3 (1.8-7.7) H 11/26/20 06:23 Seg Neutrophils # Man 7.4 K/mm3 (1.8-7.7) 11/29/20 05:52 Band Neutrophils # 0.0 K/mm3 11/29/20 05:52 Lymphocytes # (Manual) 1.0 K/mm3 (1.2-5.4) L 11/29/20 05:52 Abs React Lymphs (Man) 0.0 K/mm3 11/29/20 05:52 Monocytes # (Manual) 1.0 K/mm3 (0.0-0.8) H 11/29/20 05:52 Eosinophils # (Manual) 0.3 K/mm3 (0.0-0.4) 11/29/20 05:52 Basophils # (Manual) 0.0 K/mm3 (0.0-0.1) 11/29/20 05:52 Metamyelocytes # 0.1 K/mm3 11/29/20 05:52 Myelocytes # 0.0 K/mm3 11/29/20 05:52 Promyelocytes # 0.0 K/mm3 11/29/20 05:52 Blast Cells # 0.0 K/mm3 11/29/20 05:52 WBC Morphology Not Reportable 11/29/20 05:52 Hypersegmented Neuts Not Reportable 11/29/20 05:52 Hyposegmented Neuts Not Reportable 11/29/20 05:52 Hypogranular Neuts Not Reportable 11/29/20 05:52 Smudge Cells Not Reportable 11/29/20 05:52 Toxic Granulation Not Reportable 11/29/20 05:52 Toxic Vacuolation Not Reportable 11/29/20 05:52 Dohle Bodies Not Reportable 11/29/20 05:52 Pelger-Huet Anomaly Not Reportable 11/29/20 05:52 Fercho Rods Not Reportable 11/29/20 05:52 Platelet Estimate Consistent w auto 11/29/20 05:52 Clumped Platelets Not Reportable 11/29/20 05:52 Plt Clumps, EDTA Not Reportable 11/29/20 05:52 Large Platelets Not Reportable 11/29/20 05:52 Giant Platelets Not Reportable 11/29/20 05:52 Platelet Satelliting Not Reportable 11/29/20 05:52 Plt Morphology Comment Not Reportable 11/29/20 05:52 RBC Morphology Not Reportable 11/29/20 05:52 Dimorphic RBCs Not Reportable 11/29/20 05:52 Polychromasia Not Reportable 11/29/20 05:52 Hypochromasia Not Reportable 11/29/20 05:52 Poikilocytosis Not Reportable 11/29/20 05:52 Anisocytosis Few 11/29/20 05:52 Microcytosis Not Reportable 11/29/20 05:52 Macrocytosis Not Reportable 11/29/20 05:52 Spherocytes Not Reportable 11/29/20 05:52 Pappenheimer Bodies Not Reportable 11/29/20 05:52 Sickle Cells Not Reportable 11/29/20 05:52 Target Cells Few 11/29/20 05:52 Tear Drop Cells Not Reportable 11/29/20 05:52 Ovalocytes Not Reportable 11/29/20 05:52 Helmet Cells Not Reportable 11/29/20 05:52 [place] Bodies Not Reportable 11/29/20 05:52 [place] Rings Not Reportable 11/29/20 05:52 Joni Cells Not Reportable 11/29/20 05:52 Bite Cells Not Reportable 11/29/20 05:52 Crenated Cell Not Reportable 11/29/20 05:52 Elliptocytes Not Reportable 11/29/20 05:52 Acanthocytes (Spur) Not Reportable 11/29/20 05:52 Rouleaux Not Reportable 11/29/20 05:52 Hemoglobin C Crystals Not Reportable 11/29/20 05:52 Schistocytes Not Reportable 11/29/20 05:52 Malaria parasites Not Reportable 11/29/20 05:52 Jones Bodies Not Reportable 11/29/20 05:52 Hem Pathologist Commnt No 11/29/20 05:52 PT 11.5 Sec. (12.2-14.9) L 11/11/20 09:02 INR 0.86 (0.87-1.13) L 11/11/20 09:02 APTT 25.5 Sec. (24.2-36.6) 11/11/20 09:02 Thrombin Time 17.0 Sec. (15.1-19.6) 11/11/20 09:02 ABG pH 7.499 (7.320-7.450) H 11/17/20 11:40 POC ABG pCO2 36.3 mmHg (32.0-48.0) 11/17/20 11:40 ABG pCO2 33.9 mm Hg 11/11/20 10:45 POC ABG pO2 140.8 mmHg (83-108) H 11/17/20 11:40 ABG pO2 222.2 mm Hg (80.0-90.0) H 11/11/20 10:45 POC ABG HCO3 27.6 11/17/20 11:40 ABG HCO3 24.9 mmol/L (20.0-26.0) 11/11/20 10:45 ABG O2 Saturation 98.1 (0-100) 11/17/20 11:40 ABG O2 Content 19.4 (0.0-44) 11/11/20 10:45 POC ABG Base Excess 4.4 11/17/20 11:40 ABG Base Excess 1.9 mmol/L (-2.0-3.0) 11/11/20 10:45 ABG Hemoglobin 11.8 (12.0-17.5) L 11/17/20 11:40 ABG Oxyhemoglobin 97.4 (94-98) 11/17/20 11:40 ABG Carboxyhemoglobin 0.6 % (0.0-5.0) 11/11/20 10:45 ABG Methemoglobin 0.3 (0.0-1.5) 11/17/20 11:40 ABG Sodium 135.1 mmol/L (136.0-145.0) L 11/17/20 11:40 ABG Potassium 4.2 mmol/L (3.40-4.50) 11/17/20 11:40 ABG Chloride 102.0 mmol/L (98-107) 11/17/20 11:40 ABG Glucose 110 mg/dL (65-95) H 11/17/20 11:40 Oxyhemoglobin 98.5 % (95.0-99.0) 11/11/20 10:45 Carboxyhemoglobin 0.4 (0.5-1.5) L 11/17/20 11:40 FiO2 21 % 11/11/20 10:45 FiO2 % 30 11/17/20 11:40 Sodium 138 mmol/L (137-145) D 12/10/20 05:30 Potassium 4.1 mmol/L (3.6-5.0) 12/10/20 05:30 Chloride 102.5 mmol/L (98-107) 12/10/20 05:30 Carbon Dioxide 27 mmol/L (22-30) 12/10/20 05:30 Anion Gap 13 mmol/L 12/10/20 05:30 BUN 19 mg/dL (9-20) 12/10/20 05:30 Creatinine 0.5 mg/dL (0.8-1.3) L 12/10/20 05:30 Estimated GFR > 60 ml/min 12/10/20 05:30 BUN/Creatinine Ratio 38 % 12/10/20 05:30 Glucose 126 mg/dL (75-100) H 12/10/20 05:30 POC Glucose 127 mg/dL (70-105) H 12/10/20 06:22 Hemoglobin A1c 5.4 % (4-6) 11/12/20 07:26 Osmolality 274 Mosm/kg 11/29/20 13:08 Uric Acid 1.7 mg/dL (3.5-7.6) L 11/29/20 13:08 Calcium 8.8 mg/dL (8.4-10.2) 12/10/20 05:30 Magnesium 2.00 mg/dL (1.7-2.3) 11/11/20 09:02 Total Bilirubin 0.40 mg/dL (0.1-1.2) 11/29/20 05:52 AST 42 units/L (5-40) H 11/29/20 05:52 ALT 30 units/L (7-56) 11/29/20 05:52 Alkaline Phosphatase 156 units/L (35-129) H 11/29/20 05:52 Ammonia 29.0 umol/L (25-60) 11/12/20 08:47 Total Creatine Kinase 169 units/L (55-170) 11/11/20 09:02 CK-MB (CK-2) 6.6 ng/mL (0.0-4.0) H 11/11/20 09:02 CK-MB (CK-2) Rel Index 3.9 (0-4) 11/11/20 09:02 Troponin T < 0.010 ng/mL (0.00-0.029) 11/11/20 09:02 Total Protein 7.8 g/dL (6.3-8.2) 11/29/20 05:52 Albumin 3.2 g/dL (3.9-5) L 11/29/20 05:52 Albumin/Globulin Ratio 0.7 % 11/29/20 05:52 TSH 5.610 mlU/mL (0.270-4.200) H 11/29/20 05:52 Free T4 1.24 ng/dL (0.76-1.46) 11/29/20 10:31 Total Cortisol 25.5 mcg/dL () 11/29/20 05:52 Arterial Blood Glucose 110 mg/dL (65-95) H 11/17/20 11:40 Arterial Blood Ionized Calcium 4.9 mg/dL (4.6-5.3) 11/17/20 11:40 Urine Color Jennifer (Yellow) 12/05/20 06:20 Urine Turbidity Slightly-cloudy (Clear) 12/05/20 06:20 Urine pH 7.0 (5.0-7.0) 12/05/20 06:20 Ur Specific [place] 1.025 (1.003-1.030) 12/05/20 06:20 Urine Protein 30 mg/dl mg/dL (Negative) 12/05/20 06:20 Urine Glucose (UA) Neg mg/dL (Negative) 12/05/20 06:20 Urine Ketones Neg mg/dL (Negative) 12/05/20 06:20 Urine Blood Neg (Negative) 12/05/20 06:20 Urine Nitrite Neg (Negative) 12/05/20 06:20 Urine Bilirubin Neg (Negative) 12/05/20 06:20 Urine Urobilinogen 4.0 mg/dL (<2.0) 12/05/20 06:20 Ur Leukocyte Esterase Sm (Negative) 12/05/20 06:20 Urine WBC (Auto) 13.0 /HPF (0.0-6.0) H 12/05/20 06:20 Urine RBC (Auto) 2.0 /HPF (0.0-6.0) 12/05/20 06:20 U Epithel Cells (Auto) 2.0 /HPF (0-13.0) 12/05/20 06:20 Urine Bacteria (Auto) 1+ /HPF (Negative) 12/05/20 06:20 Urine Mucus Few /HPF 12/05/20 06:20 Urine Osmolality 610 Mosm/kg 11/29/20 11:09 Urine Opiates Screen Negative 11/11/20 20:27 Urine Methadone Screen Negative 11/11/20 20:27 Ur Barbiturates Screen Positive 11/11/20 20:27 Ur Phencyclidine Scrn Negative 11/11/20 20:27 Ur Amphetamines Screen Negative 11/11/20 20:27 Phenobarbital 4.3 ug/mL (15.0-40.0) L 11/12/20 08:47 U Benzodiazepines Scrn Negative 11/11/20 20:27 Urine Cocaine Screen Negative 11/11/20 20:27 U Marijuana (THC) Screen Negative 11/11/20 20:27 Drugs of Abuse Note Disclamer 11/11/20 20:27 Plasma/Serum Alcohol < 0.01 % (0-0.07) 11/11/20 09:02 Coronavirus (PCR) Negative (Negative) 12/02/20 Unknown [place]/IV: Voiding Method Condom Catheter Active Medications - Current Medications Current Medications: Generic Name Dose Route Start Last Admin Trade Name Freq PRN Reason Stop Dose Admin Acetaminophen 650 mg 11/11/20 22:58 12/07/20 21:13 Acetaminophen 325 Mg Tab PO 650 mg Q4H PRN Administration Pain MILD(1-3)/Fever >100.5/BAR Albuterol 2.5 mg 11/11/20 23:18 Albuterol 2.5 Mg/3 Ml Nebu IH Q3HRT PRN Wheezing Lipase/Protease/Amylase 1 each 11/12/20 12:00 Lipase 10,500/Protease 25,000/Amylase 43,750 (Units) Cap FEEDTUBE PRN PRN For Clogged Feeding Tube Dextrose 50 ml 11/11/20 22:11 11/17/20 23:29 Dextrose 50% In Water (25gm) 50 Ml Syringe IV 10 ml ONCE PRN Administration Hypoglycemia Protocol Enoxaparin Sodium 40 mg 11/12/20 22:00 12/09/20 21:09 Enoxaparin 40 Mg/0.4 Ml Inj SUB-Q 40 mg QDAY@2200 KIRK Administration Protocol Folic Acid 1 mg 11/16/20 10:00 12/10/20 09:55 Folic Acid 1 Mg Tab PO 1 mg DAILY KIRK Administration Hydralazine HCl 10 mg 11/12/20 10:30 11/14/20 07:30 Hydralazine 20 Mg/1 Ml Inj IV 10 mg Q4H PRN Administration Hypertension Hydrophilic Ointment 1 applic 11/11/20 09:14 Lip Therapy Vaseline TP Q2HR PRN Dry Lips Insulin Human Regular 0 units 11/12/20 18:00 12/10/20 06:32 Insulin Regular, Human 100 Units/1 Ml SUB-Q Not Given Q6H [facility] Protocol Lansoprazole 30 mg 11/24/20 10:00 12/10/20 09:54 Lansoprazole 30 Mg Solutab FEEDTUBE 30 mg QDAY KIRK Administration Levetiracetam 1,000 mg 11/24/20 10:00 12/10/20 09:54 Levetiracetam 500 Mg/5 Ml Oral Liqd FEEDTUBE 1,000 mg BID KIRK Administration Metoclopramide HCl 10 mg 11/11/20 22:58 Metoclopramide 10 Mg/2 Ml Inj IV Q6H PRN Nausea And Vomiting Multi-Ingred Cream/Lotion/Oil/Oint 1 applic 11/11/20 09:14 Mineral Oil/Petrolatum, White Ophth Oint 3.5 Gm OU Q4HR PRN Dry Eye(s) Multivitamins 1 each 11/13/20 00:00 12/10/20 00:19 Multivitamins ,Therapeutic Tab PO 1 each Q24H KIRK Administration Naloxone HCl 2 mg 11/11/20 08:33 Naloxone 0.4 Mg/1 Ml Inj IV Q2MIN PRN Res Rate </= 8 or 02 SAT < 92% Ondansetron HCl 4 mg 11/11/20 22:58 Ondansetron 4 Mg/2 Ml Inj IV Q3H PRN Nausea And Vomiting Phenobarbital 15 mg 11/11/20 23:45 12/10/20 09:54 Phenobarbital 15 Mg Tab PO 15 mg BID KIRK Administration Simple Syrup 15 ml 11/12/20 12:00 12/08/20 07:15 Simple Syrup 15 Ml FEEDTUBE 15 ml PRN PRN Administration Hypoglycemia Simple Syrup 30 ml 11/12/20 12:00 Simple Syrup 15 Ml FEEDTUBE PRN PRN Hypoglycemia Sodium Bicarbonate 325 mg 11/12/20 12:00 Sodium Bicarbonate 325 Mg Tab FEEDTUBE PRN PRN For Clogged Feeding Tube Sodium Chloride 10 ml 11/11/20 23:00 12/10/20 09:55 Sodium Chloride 0.9% 10 Ml Flush Syringe IV 10 ml BID KIRK Administration Sodium Chloride 10 ml 11/11/20 22:58 Sodium Chloride 0.9% 10 Ml Flush Syringe IV PRN PRN LINE FLUSH Sodium Chloride 2 gm 11/30/20 22:23 12/10/20 09:54 Sodium Chloride 1 Gm Tab PO 2 gm TID KIRK Administration Thiamine HCl 100 mg 11/16/20 10:00 12/10/20 09:55 Thiamine 100 Mg Tab PO 100 mg QDAY KIRK Administration Nutrition/Malnutrition Assess - Dietary Evaluation Nutrition/Malnutrition Findings: Nutrition Notes Start: 11/12/20 08:26 Freq: Status: Active Protocol: Document 12/09/20 11:30 (Rec: 12/09/20 11:33 [email or web address]) Nutrition Notes Initial or Follow up Brief Note Current Diagnosis Respiratory Failure,Stroke Other Pertinent Diagnosis Seizures, Neurogenic Dysphagia Current Diet TF - Jevity 1.2 at 60ml/hr Labs/Tests Na 131 Cr 0.4 Pertinent Medications NaCl 2 grams Height 5 ft 9 in Weight 61 kg [place] Body Weight (kg) 72.72 BMI 19.8 Weight Status Underweight Subjective/Other Information FU for tolerance. Pt tolerating TF at goal rate. Percent of energy/protein needs met: 100% energy/pro Burn Absent Trauma Absent GI Symptoms None Difficulty In Swallowing Current % PO Negligible Minimum of two criteria No Interpretation of Weight Loss (severe) >5% in 1 month #2 Nutrition Diagnosis Inadequate energy intake Diagnosis Progress(for reassessment Continues documentation) #1 Nutrition Diagnosis Inadequate oral intake Diagnosis Progress(for reassessment Continues documentation) Is patient on ventilator? No Is Patient Ambulatory and/or Out of Bed No REE-([facility]-confined to bed) [phone] Calculation Used for Recommendations [facility] Additional Notes Pro needs 1.2-1.5g/k-88g/ day Fluid needs 1ml/kcal Nutrition Intervention Change Diet Order: TF Nutrition Support: Jevity 1.2 at 60 ml/hr Flush 50 mL q4h Kcal 1,728 Protein (gm) 80 Fluid (mL) 1,162 Goal #1 Meet at least 75% of estimated energy and protein needs via TF Goal #2 weight stability/increase Anticipated Discharge Needs: TF Jevity 1.2 at 60 ml/hr Follow-Up By: 12/16/20 Additional Comments FU for stable TF
[2020-12-10] MEDS: ENOXAPARIN 40 MG/0.4 ML INJ SUB-Q SCH (21:02)
[2020-12-11] MEDS: INSULIN REGULAR, HUMAN 100 UNITS/1 ML SUB-Q SCH ×4 (00:08→19:06)
[2020-12-11] MEDS: LANSOPRAZOLE 30 MG SOLUTAB FEEDTUBE SCH (10:00)
[2020-12-11] MEDS: THIAMINE 100 MG TAB PO SCH (10:00)
[2020-12-11] MEDS: FOLIC ACID 1 MG TAB PO SCH (10:00)
[2020-12-11] MEDS: SODIUM CHLORIDE 1 GM TAB PO SCH ×3 (10:00→20:36)
[2020-12-11] MEDS: PHENobarbital 15 MG TAB PO SCH ×2 (10:00→22:29)
[2020-12-11] MEDS: levETIRAcetam 500 MG/5 ML ORAL LIQD FEEDTUBE SCH ×2 (10:00→22:29)
[2020-12-11] MEDS: hydrALAZINE 20 MG/1 ML INJ IV PRN (10:27)
--- NOTE | 2020-12-11 12:57 | Progress Note ---
Assessment and Plan 1. 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 Normal Cortisol level. Tolvaptan 15 m/30, 12/03, 12/05, 12/09. Continue Salt tablets. Monitor Sodium level. 2. Acute hypoxic respiratory failure: Now extubated. NC oxygen as needed. 3. Acute metabolic encephalopathy: MRI brain showed chronic changes. Monitor. 4. Seizure disorder: Continue antiseizure medications. 5 SIRS: COVID-19 test negative. Monitor. 6. 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 7. Dysphagia: S/p PEG placement. Subjective: Patient was seen and examined at the bedside. Objective: General appearance: well-developed, appears stated age, no distress noted HEENT: ATNC Neck: trachea midline Respiratory: ctab Heart: regular, S1S2, no murmur Gastrointestinal: soft, normoactive bowel sounds, not tender, PEG tube noted Integumentary: no rash, warm and dry Ext: no edema Neurologic: opens eyes, aphasic, not following any command Subjective Date of service: 12/11/20 Principal diagnosis: Neurogenic Dysphagia Objective - Vital Signs Vital signs: Vital Signs - 12hr 12/11/20 12/11/20 12/11/20 05:35 10:18 10:27 Temperature 97.9 F 98.3 F Pulse Rate 90 85 Respiratory 18 18 Rate Blood Pressure 166/93 166/93 Blood Pressure 132/80 [Right] O2 Sat by Pulse 100 96 Oximetry - Lab 12/06/20 08:33 12/10/20 05:30 Most recent lab results ABG pH 7.499 (7.320-7.450) H 11/17/20 11:40 ABG pCO2 33.9 mm Hg 11/11/20 10:45 ABG pO2 222.2 mm Hg (80.0-90.0) H 11/11/20 10:45 ABG HCO3 24.9 mmol/L (20.0-26.0) 11/11/20 10:45 ABG O2 Saturation 98.1 (0-100) 11/17/20 11:40 Calcium 8.8 mg/dL (8.4-10.2) 12/10/20 05:30 Magnesium 2.00 mg/dL (1.7-2.3) 11/11/20 09:02 Medications & Allergies - Medications Allergies/Adverse Reactions: Allergies No Known Allergies Allergy (Verified 02/24/18 09:21) Home Medications: Home Medications Medication Instructions Recorded Confirmed Last Taken Type PHENobarbitaL [PHENobarbital] 15 mg PO BID 30 Days #60 tablet 05/30/20 11/12/20 Unknown Rx levETIRAcetam [Keppra TAB] 500 mg PO BID #60 tablet 05/30/20 11/23/20 Unknown Rx Vitamin B-1 100 mg PO DAILY 08/12/20 11/12/20 Unknown History levETIRAcetam [Keppra TAB] 1,000 mg PO BID 30 Days #60 tab 08/12/20 11/23/20 Unknown Rx levETIRAcetam [Keppra TAB] 1,000 mg PO BID 90 Days #180 tab 10/01/20 11/23/20 Unknown Rx haloperidoL [Haloperidol] 5 mg PO ONCE 11/12/20 11/12/20 Unknown History Active Medications: Generic Name Dose Route Start Last Admin Trade Name Georgeq PRN Reason Stop Dose Admin Acetaminophen 650 mg 11/11/20 22:58 12/07/20 21:13 Acetaminophen 325 Mg Tab PO 650 mg Q4H PRN Administration Pain MILD(1-3)/Fever >100.5/BAR Albuterol 2.5 mg 11/11/20 23:18 Albuterol 2.5 Mg/3 Ml Nebu IH Q3HRT PRN Wheezing Lipase/Protease/Amylase 1 each 11/12/20 12:00 Lipase 10,500/Protease 25,000/Amylase 43,750 (Units) Dr Rangel FEEDTUBE PRN PRN For Clogged Feeding Tube Dextrose 50 ml 11/11/20 22:11 11/17/20 23:29 Dextrose 50% In Water (25gm) 50 Ml Syringe IV 10 ml ONCE PRN Administration Hypoglycemia Protocol Enoxaparin Sodium 40 mg 11/12/20 22:00 12/10/20 21:02 Enoxaparin 40 Mg/0.4 Ml Inj SUB-Q 40 mg QDAY@2200 KIRK Administration Protocol Folic Acid 1 mg 11/16/20 10:00 12/11/20 10:00 Folic Acid 1 Mg Tab PO 1 mg DAILY KIRK Administration Hydralazine HCl 10 mg 11/12/20 10:30 12/11/20 10:27 Hydralazine 20 Mg/1 Ml Inj IV 10 mg Q4H PRN Administration Hypertension Hydrophilic Ointment 1 applic 11/11/20 09:14 Lip Therapy Vaseline TP Q2HR PRN Dry Lips Insulin Human Regular 0 units 11/12/20 18:00 12/11/20 06:19 Insulin Regular, Human 100 Units/1 Ml SUB-Q Not Given Q6H KIRK Protocol Lansoprazole 30 mg 11/24/20 10:00 12/11/20 10:00 Lansoprazole 30 Mg Solutab FEEDTUBE 30 mg QDAY KIRK Administration Levetiracetam 1,000 mg 11/24/20 10:00 12/11/20 10:00 Levetiracetam 500 Mg/5 Ml Oral Liqd FEEDTUBE 1,000 mg BID KIRK Administration Metoclopramide HCl 10 mg 11/11/20 22:58 Metoclopramide 10 Mg/2 Ml Inj IV Q6H PRN Nausea And Vomiting Multi-Ingred Cream/Lotion/Oil/Oint 1 applic 11/11/20 09:14 Mineral Oil/Petrolatum, White Ophth Oint 3.5 Gm OU Q4HR PRN Dry Eye(s) Multivitamins 1 each 11/13/20 00:00 12/10/20 23:03 Multivitamins ,Therapeutic Tab PO 1 each Q24H KIRK Administration Naloxone HCl 2 mg 11/11/20 08:33 Naloxone 0.4 Mg/1 Ml Inj IV Q2MIN PRN Res Rate </= 8 or 02 SAT < 92% Ondansetron HCl 4 mg 11/11/20 22:58 Ondansetron 4 Mg/2 Ml Inj IV Q3H PRN Nausea And Vomiting Phenobarbital 15 mg 11/11/20 23:45 12/11/20 10:00 Phenobarbital 15 Mg Tab PO 15 mg BID KIRK Administration Simple Syrup 15 ml 11/12/20 12:00 12/08/20 07:15 Simple Syrup 15 Ml FEEDTUBE 15 ml PRN PRN Administration Hypoglycemia Simple Syrup 30 ml 11/12/20 12:00 Simple Syrup 15 Ml FEEDTUBE PRN PRN Hypoglycemia Sodium Bicarbonate 325 mg 11/12/20 12:00 Sodium Bicarbonate 325 Mg Tab FEEDTUBE PRN PRN For Clogged Feeding Tube Sodium Chloride 10 ml 11/11/20 23:00 12/11/20 10:01 Sodium Chloride 0.9% 10 Ml Flush Syringe IV 10 ml BID KIRK Administration Sodium Chloride 10 ml 11/11/20 22:58 Sodium Chloride 0.9% 10 Ml Flush Syringe IV PRN PRN LINE FLUSH Sodium Chloride 2 gm 11/30/20 22:23 12/11/20 10:00 Sodium Chloride 1 Gm Tab PO 2 gm TID KIRK Administration Thiamine HCl 100 mg 11/16/20 10:00 12/11/20 10:00 Thiamine 100 Mg Tab PO 100 mg QDAY KIRK Administration
--- NOTE | 2020-12-11 18:03 | Progress Note ---
Assessment and Plan Assessment and plan: COVID-19 test negative x 2 [ 11/12/2020, 11/23/2020] --Acute hypoxic respiratory failure requiring intubation Now extubated, Improved. Patient is saturating 97% on room air today --Acute toxic metabolic encephalopathy Multifactorial, due to seizures, SIRS, hyponatremia, abnormal thyroid functions Unknown baseline, treat the underlying cause,Has no ongoing infective process CT head ,MRI brain is negative, Continue supportive care --History of seizure disorder; no new episodes of seizure Seizure precautions ,continue antiepileptic medications ,cannot drive CT head and brain MRI showed no acute etiology for seizure --SIRS; Etiology unknown-urinalysis negative, chest x-ray also negative COVID-19 test negative, supportive care antibiotics DC'd --Needs ENT as outpatient for evaluation of upper airway. He has no carcinoma as written in previous notes Needs further evaluation of liver lesion with MRI as outpatient Also needs to follow up with pulmonary in the office --Dysphagia; s/p PEG placement, continue PEG care PEG feeds per protocol, aspiration precautions --Hyponatremia; Sodium today 129, continue replacement therapy Closely monitor electrolytes --Abnormal low TSH; Free T4 wnl -- Hypokalemia; No resolved --DVT prophylaxis-SCDs, Lovenox --GI prophylaxis-PPIs --Full CODE STATUS; Closely monitor the patient and adjust management as needed Patient is medically stable for discharge to hospice/SNF Case management processing DC planning 12/02. His sodium has improved. Awaiting placement. Has no family. Patient is a lui of the [facility]. He will need ENT evaluation with laryngoscopy at discharge. 12/03; potassium sodium continues to be low, continue current management nephrolog y following, awaiting placement 12/04: Awaiting placement. No issues noted overnight, Hypokalemia resolved. Monitor for aspiration precautions. Continue current management with nephrology 12/05: Overall poor prognosis considering his overall medical condition. He still very lethargic very drowsy and somnolent. Urinalysis yesterday reveals urinary tract infection. Will start patient on empiric antibiotics while awaiting cultures. Strongly recommend that hospice should be considered for this patient 12/06: Unfortunately remains chronically ill. I did discuss with Mr. Appiah the patient care provider. I have also advised him of his current condition and that this patient will benefit from hospice or at the very least palliative care. No clinical improvement patient opens his eyes on noxious stimuli but no other movement. Continue wound prevention measures. 12/07/2020; pending placement, possible hospice Plan of care reviewed with the patient's nurse and case management 12/08/2020; pending placement 12/09/2020; awaiting placement, possible hospice house DC planning per case management 12/10/20; awaiting placement, medically stable 12/10/2020; pending placement 12/11/20; patient is medically stable, tolerating tube feeding, alert and awake No new changes, awaiting placement History Interval history: I have seen and examined the patient at the bedside Patient's chart and medications reviewed Patient is noncommunicative alert and awake No new complaints Cachectic emaciated chronically ill looking Vital signs noted Hospitalist Physical - Constitutional Vitals: Temp Pulse Resp BP Pulse Ox 98.3 F 85 18 166/93 96 12/11/20 10:18 12/11/20 10:18 12/11/20 10:18 12/11/20 10:27 12/11/20 10:18 General appearance: Present: no acute distress, cachectic, disheveled, other (unresponsive) - EENT Eyes: Present: PERRL, EOM intact - Neck Neck: Present: supple, normal ROM - Respiratory Respiratory effort: normal Respiratory: bilateral: diminished, negative: rales, rhonchi, wheezing - Cardiovascular Rhythm: regular Heart Sounds: Present: S1 & S2 - Extremities Extremities: no ischemia, abnormal (Chronic changes) - Abdominal General gastrointestinal: soft, non-tender, non-distended, normal bowel sounds, other (PEG tube in place) - Integumentary Integumentary: Present: clear, warm - Psychiatric Psychiatric: appropriate mood/affect, cooperative - Neurologic Neurologic: CNII-XII intact, moves all extremities HEART Score - HEART Score Troponin: Troponin T < 0.010 ng/mL (0.00-0.029) 11/11/20 09:02 Results - Labs CBC & Chem 7: 12/06/20 08:33 12/10/20 05:30 Labs: Laboratory Last Values WBC 12.8 K/mm3 (4.5-11.0) H 12/06/20 08:33 RBC 4.44 M/mm3 (3.65-5.03) 12/06/20 08:33 Hgb 12.5 gm/dl (11.8-15.2) 12/06/20 08:33 Hct 37.2 % (35.5-45.6) 12/06/20 08:33 MCV 84 fl (84-94) 12/06/20 08:33 MCH 28 pg (28-32) 12/06/20 08:33 MCHC 34 % (32-34) 12/06/20 08:33 RDW 15.3 % (13.2-15.2) H 12/06/20 08:33 Plt Count 428 K/mm3 (140-440) 12/06/20 08:33 Lymph % (Auto) 18.3 % (13.4-35.0) 11/26/20 06:23 [place] % (Auto) 9.8 % (0.0-7.3) H 11/26/20 06:23 Eos % (Auto) 1.1 % (0.0-4.3) 11/26/20 06:23 Baso % (Auto) 0.7 % (0.0-1.8) 11/26/20 06:23 Lymph # (Auto) 1.7 K/mm3 (1.2-5.4) 11/26/20 06:23 [place] # (Auto) 0.9 K/mm3 (0.0-0.8) H 11/26/20 06:23 Eos # (Auto) 0.1 K/mm3 (0.0-0.4) 11/26/20 06:23 Baso # (Auto) 0.1 K/mm3 (0.0-0.1) 11/26/20 06:23 Add Manual Diff Complete 11/29/20 05:52 Total Counted 100 11/29/20 05:52 Seg Neutrophils % 70.1 % (40.0-70.0) H 11/26/20 06:23 Seg Neuts % (Manual) 76.0 % (40.0-70.0) H 11/29/20 05:52 Lymphocytes % (Manual) 10.0 % (13.4-35.0) L 11/29/20 05:52 Reactive Lymphs % (Man) 4.0 % 11/27/20 05:50 Monocytes % (Manual) 10.0 % (0.0-7.3) H 11/29/20 05:52 Eosinophils % (Manual) 3.0 % (0.0-4.3) 11/29/20 05:52 Metamyelocytes % 1.0 % 11/29/20 05:52 Nucleated RBC % Not Reportable 11/29/20 05:52 Seg Neutrophils # 9.5 K/mm3 (1.8-7.7) H 11/26/20 06:23 Seg Neutrophils # Man 7.4 K/mm3 (1.8-7.7) 11/29/20 05:52 Band Neutrophils # 0.0 K/mm3 11/29/20 05:52 Lymphocytes # (Manual) 1.0 K/mm3 (1.2-5.4) L 11/29/20 05:52 Abs React Lymphs (Man) 0.0 K/mm3 11/29/20 05:52 Monocytes # (Manual) 1.0 K/mm3 (0.0-0.8) H 11/29/20 05:52 Eosinophils # (Manual) 0.3 K/mm3 (0.0-0.4) 11/29/20 05:52 Basophils # (Manual) 0.0 K/mm3 (0.0-0.1) 11/29/20 05:52 Metamyelocytes # 0.1 K/mm3 11/29/20 05:52 Myelocytes # 0.0 K/mm3 11/29/20 05:52 Promyelocytes # 0.0 K/mm3 11/29/20 05:52 Blast Cells # 0.0 K/mm3 11/29/20 05:52 WBC Morphology Not Reportable 11/29/20 05:52 Hypersegmented Neuts Not Reportable 11/29/20 05:52 Hyposegmented Neuts Not Reportable 11/29/20 05:52 Hypogranular Neuts Not Reportable 11/29/20 05:52 Smudge Cells Not Reportable 11/29/20 05:52 Toxic Granulation Not Reportable 11/29/20 05:52 Toxic Vacuolation Not Reportable 11/29/20 05:52 Dohle Bodies Not Reportable 11/29/20 05:52 Pelger-Huet Anomaly Not Reportable 11/29/20 05:52 Fercho Rods Not Reportable 11/29/20 05:52 Platelet Estimate Consistent w auto 11/29/20 05:52 Clumped Platelets Not Reportable 11/29/20 05:52 Plt Clumps, EDTA Not Reportable 11/29/20 05:52 Large Platelets Not Reportable 11/29/20 05:52 Giant Platelets Not Reportable 11/29/20 05:52 Platelet Satelliting Not Reportable 11/29/20 05:52 Plt Morphology Comment Not Reportable 11/29/20 05:52 RBC Morphology Not Reportable 11/29/20 05:52 Dimorphic RBCs Not Reportable 11/29/20 05:52 Polychromasia Not Reportable 11/29/20 05:52 Hypochromasia Not Reportable 11/29/20 05:52 Poikilocytosis Not Reportable 11/29/20 05:52 Anisocytosis Few 11/29/20 05:52 Microcytosis Not Reportable 11/29/20 05:52 Macrocytosis Not Reportable 11/29/20 05:52 Spherocytes Not Reportable 11/29/20 05:52 Pappenheimer Bodies Not Reportable 11/29/20 05:52 Sickle Cells Not Reportable 11/29/20 05:52 Target Cells Few 11/29/20 05:52 Tear Drop Cells Not Reportable 11/29/20 05:52 Ovalocytes Not Reportable 11/29/20 05:52 Helmet Cells Not Reportable 11/29/20 05:52 [place] Bodies Not Reportable 11/29/20 05:52 [place] Rings Not Reportable 11/29/20 05:52 [place] Cells Not Reportable 11/29/20 05:52 Bite Cells Not Reportable 11/29/20 05:52 Crenated Cell Not Reportable 11/29/20 05:52 Elliptocytes Not Reportable 11/29/20 05:52 Acanthocytes (Spur) Not Reportable 11/29/20 05:52 Rouleaux Not Reportable 11/29/20 05:52 Hemoglobin C Crystals Not Reportable 11/29/20 05:52 Schistocytes Not Reportable 11/29/20 05:52 Malaria parasites Not Reportable 11/29/20 05:52 Jones Bodies Not Reportable 11/29/20 05:52 Hem Pathologist Commnt No 11/29/20 05:52 PT 11.5 Sec. (12.2-14.9) L 11/11/20 09:02 INR 0.86 (0.87-1.13) L 11/11/20 09:02 APTT 25.5 Sec. (24.2-36.6) 11/11/20 09:02 Thrombin Time 17.0 Sec. (15.1-19.6) 11/11/20 09:02 ABG pH 7.499 (7.320-7.450) H 11/17/20 11:40 POC ABG pCO2 36.3 mmHg (32.0-48.0) 11/17/20 11:40 ABG pCO2 33.9 mm Hg 11/11/20 10:45 POC ABG pO2 140.8 mmHg (83-108) H 11/17/20 11:40 ABG pO2 222.2 mm Hg (80.0-90.0) H 11/11/20 10:45 POC ABG HCO3 27.6 11/17/20 11:40 ABG HCO3 24.9 mmol/L (20.0-26.0) 11/11/20 10:45 ABG O2 Saturation 98.1 (0-100) 11/17/20 11:40 ABG O2 Content 19.4 (0.0-44) 11/11/20 10:45 POC ABG Base Excess 4.4 11/17/20 11:40 ABG Base Excess 1.9 mmol/L (-2.0-3.0) 11/11/20 10:45 ABG Hemoglobin 11.8 (12.0-17.5) L 11/17/20 11:40 ABG Oxyhemoglobin 97.4 (94-98) 11/17/20 11:40 ABG Carboxyhemoglobin 0.6 % (0.0-5.0) 11/11/20 10:45 ABG Methemoglobin 0.3 (0.0-1.5) 11/17/20 11:40 ABG Sodium 135.1 mmol/L (136.0-145.0) L 11/17/20 11:40 ABG Potassium 4.2 mmol/L (3.40-4.50) 11/17/20 11:40 ABG Chloride 102.0 mmol/L (98-107) 11/17/20 11:40 ABG Glucose 110 mg/dL (65-95) H 11/17/20 11:40 Oxyhemoglobin 98.5 % (95.0-99.0) 11/11/20 10:45 Carboxyhemoglobin 0.4 (0.5-1.5) L 11/17/20 11:40 FiO2 21 % 11/11/20 10:45 FiO2 % 30 11/17/20 11:40 Sodium 138 mmol/L (137-145) D 12/10/20 05:30 Potassium 4.1 mmol/L (3.6-5.0) 12/10/20 05:30 Chloride 102.5 mmol/L (98-107) 12/10/20 05:30 Carbon Dioxide 27 mmol/L (22-30) 12/10/20 05:30 Anion Gap 13 mmol/L 12/10/20 05:30 BUN 19 mg/dL (9-20) 12/10/20 05:30 Creatinine 0.5 mg/dL (0.8-1.3) L 12/10/20 05:30 Estimated GFR > 60 ml/min 12/10/20 05:30 BUN/Creatinine Ratio 38 % 12/10/20 05:30 Glucose 126 mg/dL (75-100) H 12/10/20 05:30 POC Glucose 112 mg/dL (70-105) H 12/11/20 16:26 Hemoglobin A1c 5.4 % (4-6) 11/12/20 07:26 Osmolality 274 Mosm/kg 11/29/20 13:08 Uric Acid 1.7 mg/dL (3.5-7.6) L 11/29/20 13:08 Calcium 8.8 mg/dL (8.4-10.2) 12/10/20 05:30 Magnesium 2.00 mg/dL (1.7-2.3) 11/11/20 09:02 Total Bilirubin 0.40 mg/dL (0.1-1.2) 11/29/20 05:52 AST 42 units/L (5-40) H 11/29/20 05:52 ALT 30 units/L (7-56) 11/29/20 05:52 Alkaline Phosphatase 156 units/L (35-129) H 11/29/20 05:52 Ammonia 29.0 umol/L (25-60) 11/12/20 08:47 Total Creatine Kinase 169 units/L (55-170) 11/11/20 09:02 CK-MB (CK-2) 6.6 ng/mL (0.0-4.0) H 11/11/20 09:02 CK-MB (CK-2) Rel Index 3.9 (0-4) 11/11/20 09:02 Troponin T < 0.010 ng/mL (0.00-0.029) 11/11/20 09:02 Total Protein 7.8 g/dL (6.3-8.2) 11/29/20 05:52 Albumin 3.2 g/dL (3.9-5) L 11/29/20 05:52 Albumin/Globulin Ratio 0.7 % 11/29/20 05:52 TSH 5.610 mlU/mL (0.270-4.200) H 11/29/20 05:52 Free T4 1.24 ng/dL (0.76-1.46) 11/29/20 10:31 Total Cortisol 25.5 mcg/dL () 11/29/20 05:52 Arterial Blood Glucose 110 mg/dL (65-95) H 11/17/20 11:40 Arterial Blood Ionized Calcium 4.9 mg/dL (4.6-5.3) 11/17/20 11:40 Urine Color Jennifer (Yellow) 12/05/20 06:20 Urine Turbidity Slightly-cloudy (Clear) 12/05/20 06:20 Urine pH 7.0 (5.0-7.0) 12/05/20 06:20 Ur Specific [place] 1.025 (1.003-1.030) 12/05/20 06:20 Urine Protein 30 mg/dl mg/dL (Negative) 12/05/20 06:20 Urine Glucose (UA) Neg mg/dL (Negative) 12/05/20 06:20 Urine Ketones Neg mg/dL (Negative) 12/05/20 06:20 Urine Blood Neg (Negative) 12/05/20 06:20 Urine Nitrite Neg (Negative) 12/05/20 06:20 Urine Bilirubin Neg (Negative) 12/05/20 06:20 Urine Urobilinogen 4.0 mg/dL (<2.0) 12/05/20 06:20 Ur Leukocyte Esterase Sm (Negative) 12/05/20 06:20 Urine WBC (Auto) 13.0 /HPF (0.0-6.0) H 12/05/20 06:20 Urine RBC (Auto) 2.0 /HPF (0.0-6.0) 12/05/20 06:20 U Epithel Cells (Auto) 2.0 /HPF (0-13.0) 12/05/20 06:20 Urine Bacteria (Auto) 1+ /HPF (Negative) 12/05/20 06:20 Urine Mucus Few /HPF 12/05/20 06:20 Urine Osmolality 610 Mosm/kg 11/29/20 11:09 Urine Opiates Screen Negative 11/11/20 20:27 Urine Methadone Screen Negative 11/11/20 20:27 Ur Barbiturates Screen Positive 11/11/20 20:27 Ur Phencyclidine Scrn Negative 11/11/20 20:27 Ur Amphetamines Screen Negative 11/11/20 20:27 Phenobarbital 4.3 ug/mL (15.0-40.0) L 11/12/20 08:47 U Benzodiazepines Scrn Negative 11/11/20 20:27 Urine Cocaine Screen Negative 11/11/20 20:27 U Marijuana (THC) Screen Negative 11/11/20 20:27 Drugs of Abuse Note Disclamer 11/11/20 20:27 Plasma/Serum Alcohol < 0.01 % (0-0.07) 11/11/20 09:02 Coronavirus (PCR) Negative (Negative) 12/02/20 Unknown [place]/IV: Voiding Method Condom Catheter Active Medications - Current Medications Current Medications: Generic Name Dose Route Start Last Admin Trade Name Freq PRN Reason Stop Dose Admin Acetaminophen 650 mg 11/11/20 22:58 12/07/20 21:13 Acetaminophen 325 Mg Tab PO 650 mg Q4H PRN Administration Pain MILD(1-3)/Fever >100.5/BAR Albuterol 2.5 mg 11/11/20 23:18 Albuterol 2.5 Mg/3 Ml Nebu IH Q3HRT PRN Wheezing Lipase/Protease/Amylase 1 each 11/12/20 12:00 Lipase 10,500/Protease 25,000/Amylase 43,750 (Units) Cap FEEDTUBE PRN PRN For Clogged Feeding Tube Dextrose 50 ml 11/11/20 22:11 11/17/20 23:29 Dextrose 50% In Water (25gm) 50 Ml Syringe IV 10 ml ONCE PRN Administration Hypoglycemia Protocol Enoxaparin Sodium 40 mg 11/12/20 22:00 12/10/20 21:02 Enoxaparin 40 Mg/0.4 Ml Inj SUB-Q 40 mg QDAY@2200 KIRK Administration Protocol Folic Acid 1 mg 11/16/20 10:00 12/11/20 10:00 Folic Acid 1 Mg Tab PO 1 mg DAILY KIRK Administration Hydralazine HCl 10 mg 11/12/20 10:30 12/11/20 10:27 Hydralazine 20 Mg/1 Ml Inj IV 10 mg Q4H PRN Administration Hypertension Hydrophilic Ointment 1 applic 11/11/20 09:14 Lip Therapy Vaseline TP Q2HR PRN Dry Lips Insulin Human Regular 0 units 11/12/20 18:00 12/11/20 13:00 Insulin Regular, Human 100 Units/1 Ml SUB-Q Not Given Q6H [facility] Protocol Lansoprazole 30 mg 11/24/20 10:00 12/11/20 10:00 Lansoprazole 30 Mg Solutab FEEDTUBE 30 mg QDAY KIRK Administration Levetiracetam 1,000 mg 11/24/20 10:00 12/11/20 10:00 Levetiracetam 500 Mg/5 Ml Oral Liqd FEEDTUBE 1,000 mg BID KIRK Administration Metoclopramide HCl 10 mg 11/11/20 22:58 Metoclopramide 10 Mg/2 Ml Inj IV Q6H PRN Nausea And Vomiting Multi-Ingred Cream/Lotion/Oil/Oint 1 applic 11/11/20 09:14 Mineral Oil/Petrolatum, White Ophth Oint 3.5 Gm OU Q4HR PRN Dry Eye(s) Multivitamins 1 each 11/13/20 00:00 12/10/20 23:03 Multivitamins ,Therapeutic Tab PO 1 each Q24H KIRK Administration Naloxone HCl 2 mg 11/11/20 08:33 Naloxone 0.4 Mg/1 Ml Inj IV Q2MIN PRN Res Rate </= 8 or 02 SAT < 92% Ondansetron HCl 4 mg 11/11/20 22:58 Ondansetron 4 Mg/2 Ml Inj IV Q3H PRN Nausea And Vomiting Phenobarbital 15 mg 11/11/20 23:45 12/11/20 10:00 Phenobarbital 15 Mg Tab PO 15 mg BID KIRK Administration Simple Syrup 15 ml 11/12/20 12:00 12/08/20 07:15 Simple Syrup 15 Ml FEEDTUBE 15 ml PRN PRN Administration Hypoglycemia Simple Syrup 30 ml 11/12/20 12:00 Simple Syrup 15 Ml FEEDTUBE PRN PRN Hypoglycemia Sodium Bicarbonate 325 mg 11/12/20 12:00 Sodium Bicarbonate 325 Mg Tab FEEDTUBE PRN PRN For Clogged Feeding Tube Sodium Chloride 10 ml 11/11/20 23:00 12/11/20 10:01 Sodium Chloride 0.9% 10 Ml Flush Syringe IV 10 ml BID KIRK Administration Sodium Chloride 10 ml 11/11/20 22:58 Sodium Chloride 0.9% 10 Ml Flush Syringe IV PRN PRN LINE FLUSH Sodium Chloride 2 gm 11/30/20 22:23 12/11/20 15:39 Sodium Chloride 1 Gm Tab PO 2 gm TID KIRK Administration Thiamine HCl 100 mg 11/16/20 10:00 12/11/20 10:00 Thiamine 100 Mg Tab PO 100 mg QDAY KIRK Administration Nutrition/Malnutrition Assess - Dietary Evaluation Nutrition/Malnutrition Findings: Nutrition Notes Start: 11/12/20 08:26 Freq: Status: Active Protocol: Document 12/09/20 11:30 (Rec: 12/09/20 11:33 [id number]) Nutrition Notes Initial or Follow up Brief Note Current Diagnosis Respiratory Failure,Stroke Other Pertinent Diagnosis Seizures, Neurogenic Dysphagia Current Diet TF - Jevity 1.2 at 60ml/hr Labs/Tests Na 131 Cr 0.4 Pertinent Medications NaCl 2 grams Height 5 ft 9 in Weight 61 kg [place] Body Weight (kg) 72.72 BMI 19.8 Weight Status Underweight Subjective/Other Information FU for tolerance. Pt tolerating TF at goal rate. Percent of energy/protein needs met: 100% energy/pro Burn Absent Trauma Absent GI Symptoms None Difficulty In Swallowing Current % PO Negligible Minimum of two criteria No Interpretation of Weight Loss (severe) >5% in 1 month #2 Nutrition Diagnosis Inadequate energy intake Diagnosis Progress(for reassessment Continues documentation) #1 Nutrition Diagnosis Inadequate oral intake Diagnosis Progress(for reassessment Continues documentation) Is patient on ventilator? No Is Patient Ambulatory and/or Out of Bed No REE-([facility]-confined to bed) [phone] Calculation Used for Recommendations Cailin Kahn Additional Notes Pro needs 1.2-1.5g/k-88g/ day Fluid needs 1ml/kcal Nutrition Intervention Change Diet Order: TF Nutrition Support: Jevity 1.2 at 60 ml/hr Flush 50 mL q4h Kcal 1,728 Protein (gm) 80 Fluid (mL) 1,162 Goal #1 Meet at least 75% of estimated energy and protein needs via TF Goal #2 weight stability/increase Anticipated Discharge Needs: TF Jevity 1.2 at 60 ml/hr Follow-Up By: 12/16/20 Additional Comments FU for stable TF
[2020-12-11] MEDS: ENOXAPARIN 40 MG/0.4 ML INJ SUB-Q SCH (22:29)
[2020-12-12 05:59] LABS: Blood Urea Nitrogen 21 mg/dL (9-20); Calcium 8.5 mg/dL (8.4-10.2); Hemolysis Index 0
[2020-12-12] MEDS: INSULIN REGULAR, HUMAN 100 UNITS/1 ML SUB-Q SCH ×4 (06:00→18:43)
[2020-12-12 06:01] LABS: BUN/Creatinine Ratio 42
[2020-12-12] MEDS: SODIUM CHLORIDE 1 GM TAB PO SCH ×3 (10:36→20:54)
[2020-12-12] MEDS: levETIRAcetam 500 MG/5 ML ORAL LIQD FEEDTUBE SCH ×2 (10:36→21:48)
[2020-12-12] MEDS: THIAMINE 100 MG TAB PO SCH (10:38)
[2020-12-12] MEDS: LANSOPRAZOLE 30 MG SOLUTAB FEEDTUBE SCH (10:38)
[2020-12-12] MEDS: FOLIC ACID 1 MG TAB PO SCH (10:38)
[2020-12-12] MEDS: PHENobarbital 15 MG TAB PO SCH ×2 (10:38→21:49)
[2020-12-12] MEDS: MULTIVITAMINS ,THERAPEUTIC TAB PO SCH ×2 (10:46→18:42)
--- NOTE | 2020-12-12 11:49 | Progress Note ---
Assessment and Plan 1. 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 Normal Cortisol level. Tolvaptan 15 m/30, 12/03, 12/05, 12/09. Continue Salt tablets. Monitor Sodium level. 2. Acute hypoxic respiratory failure: Now extubated. NC oxygen as needed. 3. Acute metabolic encephalopathy: MRI brain showed chronic changes. Monitor. 4. Seizure disorder: Continue antiseizure medications. 5 SIRS: COVID-19 test negative. Monitor. 6. 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 7. Dysphagia: S/p PEG placement. Will see patient as needed. Please call with any questions. Subjective: Patient was seen and examined at the bedside. Objective: General appearance: well-developed, appears stated age, no distress noted HEENT: ATNC Neck: trachea midline Respiratory: ctab Heart: regular, S1S2, no murmur Gastrointestinal: soft, normoactive bowel sounds, not tender, PEG tube noted Integumentary: no rash, warm and dry Ext: no edema Neurologic: opens eyes, aphasic, not following any command Subjective Date of service: 12/12/20 Principal diagnosis: Neurogenic Dysphagia Objective - Vital Signs Vital signs: Vital Signs - 12hr 12/12/20 12/12/20 05:30 11:05 Temperature 98.4 F 98.9 F Pulse Rate 84 90 Respiratory 20 Rate Blood Pressure 133/74 Blood Pressure 156/76 [Right] O2 Sat by Pulse 95 96 Oximetry - Lab 12/06/20 08:33 12/12/20 04:43 Most recent lab results ABG pH 7.499 (7.320-7.450) H 11/17/20 11:40 ABG pCO2 33.9 mm Hg 11/11/20 10:45 ABG pO2 222.2 mm Hg (80.0-90.0) H 11/11/20 10:45 ABG HCO3 24.9 mmol/L (20.0-26.0) 11/11/20 10:45 ABG O2 Saturation 98.1 (0-100) 11/17/20 11:40 Calcium 8.5 mg/dL (8.4-10.2) 12/12/20 04:43 Magnesium 2.00 mg/dL (1.7-2.3) 11/11/20 09:02 Medications & Allergies - Medications Allergies/Adverse Reactions: Allergies No Known Allergies Allergy (Verified 02/24/18 09:21) Home Medications: Home Medications Medication Instructions Recorded Confirmed Last Taken Type PHENobarbitaL [PHENobarbital] 15 mg PO BID 30 Days #60 tablet 05/30/20 11/12/20 Unknown Rx levETIRAcetam [Keppra TAB] 500 mg PO BID #60 tablet 05/30/20 11/23/20 Unknown Rx Vitamin B-1 100 mg PO DAILY 08/12/20 11/12/20 Unknown History levETIRAcetam [Keppra TAB] 1,000 mg PO BID 30 Days #60 tab 08/12/20 11/23/20 Unknown Rx levETIRAcetam [Keppra TAB] 1,000 mg PO BID 90 Days #180 tab 10/01/20 11/23/20 Unknown Rx haloperidoL [Haloperidol] 5 mg PO ONCE 11/12/20 11/12/20 Unknown History Active Medications: Generic Name Dose Route Start Last Admin Trade Name Georgeq PRN Reason Stop Dose Admin Acetaminophen 650 mg 11/11/20 22:58 12/07/20 21:13 Acetaminophen 325 Mg Tab PO 650 mg Q4H PRN Administration Pain MILD(1-3)/Fever >100.5/BAR Albuterol 2.5 mg 11/11/20 23:18 Albuterol 2.5 Mg/3 Ml Nebu IH Q3HRT PRN Wheezing Lipase/Protease/Amylase 1 each 11/12/20 12:00 Lipase 10,500/Protease 25,000/Amylase 43,750 (Units) Dr Rangel FEEDTUBE PRN PRN For Clogged Feeding Tube Dextrose 50 ml 11/11/20 22:11 11/17/20 23:29 Dextrose 50% In Water (25gm) 50 Ml Syringe IV 10 ml ONCE PRN Administration Hypoglycemia Protocol Enoxaparin Sodium 40 mg 11/12/20 22:00 12/11/20 22:29 Enoxaparin 40 Mg/0.4 Ml Inj SUB-Q 40 mg QDAY@2200 KIRK Administration Protocol Folic Acid 1 mg 11/16/20 10:00 12/12/20 10:38 Folic Acid 1 Mg Tab PO 1 mg DAILY KIRK Administration Hydralazine HCl 10 mg 11/12/20 10:30 12/11/20 10:27 Hydralazine 20 Mg/1 Ml Inj IV 10 mg Q4H PRN Administration Hypertension Hydrophilic Ointment 1 applic 11/11/20 09:14 Lip Therapy Vaseline TP Q2HR PRN Dry Lips Insulin Human Regular 0 units 11/12/20 18:00 12/11/20 19:06 Insulin Regular, Human 100 Units/1 Ml SUB-Q Not Given Q6H KIRK Protocol Lansoprazole 30 mg 11/24/20 10:00 12/12/20 10:38 Lansoprazole 30 Mg Solutab FEEDTUBE 30 mg QDAY KIRK Administration Levetiracetam 1,000 mg 11/24/20 10:00 12/12/20 10:36 Levetiracetam 500 Mg/5 Ml Oral Liqd FEEDTUBE 1,000 mg BID KIRK Administration Metoclopramide HCl 10 mg 11/11/20 22:58 Metoclopramide 10 Mg/2 Ml Inj IV Q6H PRN Nausea And Vomiting Multi-Ingred Cream/Lotion/Oil/Oint 1 applic 11/11/20 09:14 Mineral Oil/Petrolatum, White Ophth Oint 3.5 Gm OU Q4HR PRN Dry Eye(s) Multivitamins 1 each 12/12/20 10:00 12/12/20 10:46 Multivitamins ,Therapeutic Tab PO 1 each DAILY KIRK Administration Naloxone HCl 2 mg 11/11/20 08:33 Naloxone 0.4 Mg/1 Ml Inj IV Q2MIN PRN Res Rate </= 8 or 02 SAT < 92% Ondansetron HCl 4 mg 11/11/20 22:58 Ondansetron 4 Mg/2 Ml Inj IV Q3H PRN Nausea And Vomiting Phenobarbital 15 mg 11/11/20 23:45 12/12/20 10:38 Phenobarbital 15 Mg Tab PO 15 mg BID KIRK Administration Simple Syrup 15 ml 11/12/20 12:00 12/08/20 07:15 Simple Syrup 15 Ml FEEDTUBE 15 ml PRN PRN Administration Hypoglycemia Simple Syrup 30 ml 11/12/20 12:00 Simple Syrup 15 Ml FEEDTUBE PRN PRN Hypoglycemia Sodium Bicarbonate 325 mg 11/12/20 12:00 Sodium Bicarbonate 325 Mg Tab FEEDTUBE PRN PRN For Clogged Feeding Tube Sodium Chloride 10 ml 11/11/20 23:00 12/12/20 10:39 Sodium Chloride 0.9% 10 Ml Flush Syringe IV 10 ml BID KIRK Administration Sodium Chloride 10 ml 11/11/20 22:58 Sodium Chloride 0.9% 10 Ml Flush Syringe IV PRN PRN LINE FLUSH Sodium Chloride 2 gm 11/30/20 22:23 12/12/20 10:36 Sodium Chloride 1 Gm Tab PO 2 gm TID KIRK Administration Thiamine HCl 100 mg 11/16/20 10:00 12/12/20 10:38 Thiamine 100 Mg Tab PO 100 mg QDAY KIKR Administration
--- NOTE | 2020-12-12 17:36 | Progress Note ---
Assessment and Plan Assessment and plan: COVID-19 test negative x 2 [ 11/12/2020, 11/23/2020] --Acute hypoxic respiratory failure requiring intubation 11/11/2020 /extubated 11/17/2020 Reintubated 11/18/2020/extubated 11/19/2020 Patient is saturating 97% on room air today --Acute toxic metabolic encephalopathy Multifactorial, due to seizures, SIRS, hyponatremia, abnormal thyroid functions Unknown baseline, treat the underlying cause,Has no ongoing infective process CT head ,MRI brain is negative, Continue supportive care --History of seizure disorder; no new episodes of seizure Seizure precautions ,continue antiepileptic medications ,cannot drive CT head and brain MRI showed no acute etiology for seizure --SIRS; Etiology unknown-urinalysis negative, chest x-ray also negative COVID-19 test negative, supportive care antibiotics DC'd --Needs ENT as outpatient for evaluation of upper airway. He has no carcinoma as written in previous notes Needs further evaluation of liver lesion with MRI as outpatient Also needs to follow up with pulmonary in the office --Dysphagia; s/p PEG placement, continue PEG care PEG feeds per protocol, aspiration precautions --Hyponatremia; Sodium today 129, continue replacement therapy Closely monitor electrolytes --Abnormal low TSH; Free T4 wnl -- Hypokalemia; No resolved --DVT prophylaxis-SCDs, Lovenox --GI prophylaxis-PPIs --Full CODE STATUS; Closely monitor the patient and adjust management as needed Patient is medically stable for discharge to hospice/SNF Case management processing DC planning 12/02. His sodium has improved. Awaiting placement. Has no family. Patient is a [place] of [place]. He will need ENT evaluation with laryngoscopy at discharge. 12/03; potassium sodium continues to be low, continue current management nephrology following, awaiting placement 12/04: Awaiting placement. No issues noted overnight, Hypokalemia resolved. Monitor for aspiration precautions. Continue current management with nephrology 12/05: Overall poor prognosis considering his overall medical condition. He still very lethargic very drowsy and somnolent. Urinalysis yesterday reveals urinary tract infection. Will start patient on empiric antibiotics while awaiting cultures. Strongly recommend that hospice should be considered for this patient 12/06: Unfortunately remains chronically ill. I did discuss with Mr. Appiah the patient care provider. I have also advised him of his current condition and that this patient will benefit from hospice or at the very least palliative care. No clinical improvement patient opens his eyes on noxious stimuli but no other movement. Continue wound prevention measures. 12/07/2020; pending placement, possible hospice Plan of care reviewed with the patient's nurse and case management 12/08/2020; pending placement 12/09/2020; awaiting placement, possible hospice house DC planning per case management 12/10/20; awaiting placement, medically stable 12/10/2020; pending placement 12/11/20; patient is medically stable, tolerating tube feeding, alert and awake No new changes, awaiting placement 12/12/2020; patient feels better, tolerating tube feeds, minimally communicative, awaiting placement History Interval history: I have seen and examined the patient at the bedside Patient's chart and medications reviewed Patient feels better no new complaints per nurse Vital signs noted Minimally communicative Hospitalist Physical - Constitutional Vitals: Temp Pulse Resp BP Pulse Ox 98.9 F 90 20 156/76 96 12/12/20 11:05 12/12/20 11:05 12/12/20 11:05 12/12/20 11:05 12/12/20 11:05 General appearance: Present: no acute distress, cachectic, disheveled, other (Noncommunicative) - EENT Eyes: Present: PERRL, EOM intact - Neck Neck: Present: supple, normal ROM - Respiratory Respiratory effort: normal Respiratory: bilateral: diminished, negative: rales, rhonchi, wheezing - Cardiovascular Rhythm: regular Heart Sounds: Present: S1 & S2 - Extremities Extremities: no ischemia, No edema - Abdominal General gastrointestinal: soft, non-tender, non-distended, normal bowel sounds, other (PEG in place) - Integumentary Integumentary: Present: clear, warm - Psychiatric Psychiatric: appropriate mood/affect - Neurologic Neurologic: moves all extremities HEART Score - HEART Score Troponin: Troponin T < 0.010 ng/mL (0.00-0.029) 11/11/20 09:02 Results - Labs CBC & Chem 7: 12/06/20 08:33 12/12/20 04:43 Labs: Laboratory Last Values WBC 12.8 K/mm3 (4.5-11.0) H 12/06/20 08:33 RBC 4.44 M/mm3 (3.65-5.03) 12/06/20 08:33 Hgb 12.5 gm/dl (11.8-15.2) 12/06/20 08:33 Hct 37.2 % (35.5-45.6) 12/06/20 08:33 MCV 84 fl (84-94) 12/06/20 08:33 MCH 28 pg (28-32) 12/06/20 08:33 MCHC 34 % (32-34) 12/06/20 08:33 RDW 15.3 % (13.2-15.2) H 12/06/20 08:33 Plt Count 428 K/mm3 (140-440) 12/06/20 08:33 Lymph % (Auto) 18.3 % (13.4-35.0) 11/26/20 06:23 [place] % (Auto) 9.8 % (0.0-7.3) H 11/26/20 06:23 Eos % (Auto) 1.1 % (0.0-4.3) 11/26/20 06:23 Baso % (Auto) 0.7 % (0.0-1.8) 11/26/20 06:23 Lymph # (Auto) 1.7 K/mm3 (1.2-5.4) 11/26/20 06:23 [place] # (Auto) 0.9 K/mm3 (0.0-0.8) H 11/26/20 06:23 Eos # (Auto) 0.1 K/mm3 (0.0-0.4) 11/26/20 06:23 Baso # (Auto) 0.1 K/mm3 (0.0-0.1) 11/26/20 06:23 Add Manual Diff Complete 11/29/20 05:52 Total Counted 100 11/29/20 05:52 Seg Neutrophils % 70.1 % (40.0-70.0) H 11/26/20 06:23 Seg Neuts % (Manual) 76.0 % (40.0-70.0) H 11/29/20 05:52 Lymphocytes % (Manual) 10.0 % (13.4-35.0) L 11/29/20 05:52 Reactive Lymphs % (Man) 4.0 % 11/27/20 05:50 Monocytes % (Manual) 10.0 % (0.0-7.3) H 11/29/20 05:52 Eosinophils % (Manual) 3.0 % (0.0-4.3) 11/29/20 05:52 Metamyelocytes % 1.0 % 11/29/20 05:52 Nucleated RBC % Not Reportable 11/29/20 05:52 Seg Neutrophils # 9.5 K/mm3 (1.8-7.7) H 11/26/20 06:23 Seg Neutrophils # Man 7.4 K/mm3 (1.8-7.7) 11/29/20 05:52 Band Neutrophils # 0.0 K/mm3 11/29/20 05:52 Lymphocytes # (Manual) 1.0 K/mm3 (1.2-5.4) L 11/29/20 05:52 Abs React Lymphs (Man) 0.0 K/mm3 11/29/20 05:52 Monocytes # (Manual) 1.0 K/mm3 (0.0-0.8) H 11/29/20 05:52 Eosinophils # (Manual) 0.3 K/mm3 (0.0-0.4) 11/29/20 05:52 Basophils # (Manual) 0.0 K/mm3 (0.0-0.1) 11/29/20 05:52 Metamyelocytes # 0.1 K/mm3 11/29/20 05:52 Myelocytes # 0.0 K/mm3 11/29/20 05:52 Promyelocytes # 0.0 K/mm3 11/29/20 05:52 Blast Cells # 0.0 K/mm3 11/29/20 05:52 WBC Morphology Not Reportable 11/29/20 05:52 Hypersegmented Neuts Not Reportable 11/29/20 05:52 Hyposegmented Neuts Not Reportable 11/29/20 05:52 Hypogranular Neuts Not Reportable 11/29/20 05:52 Smudge Cells Not Reportable 11/29/20 05:52 Toxic Granulation Not Reportable 11/29/20 05:52 Toxic Vacuolation Not Reportable 11/29/20 05:52 Dohle Bodies Not Reportable 11/29/20 05:52 Pelger-Huet Anomaly Not Reportable 11/29/20 05:52 Fercho Rods Not Reportable 11/29/20 05:52 Platelet Estimate Consistent w auto 11/29/20 05:52 Clumped Platelets Not Reportable 11/29/20 05:52 Plt Clumps, EDTA Not Reportable 11/29/20 05:52 Large Platelets Not Reportable 11/29/20 05:52 Giant Platelets Not Reportable 11/29/20 05:52 Platelet Satelliting Not Reportable 11/29/20 05:52 Plt Morphology Comment Not Reportable 11/29/20 05:52 RBC Morphology Not Reportable 11/29/20 05:52 Dimorphic RBCs Not Reportable 11/29/20 05:52 Polychromasia Not Reportable 11/29/20 05:52 Hypochromasia Not Reportable 11/29/20 05:52 Poikilocytosis Not Reportable 11/29/20 05:52 Anisocytosis Few 11/29/20 05:52 Microcytosis Not Reportable 11/29/20 05:52 Macrocytosis Not Reportable 11/29/20 05:52 Spherocytes Not Reportable 11/29/20 05:52 Pappenheimer Bodies Not Reportable 11/29/20 05:52 Sickle Cells Not Reportable 11/29/20 05:52 Target Cells Few 11/29/20 05:52 Tear Drop Cells Not Reportable 11/29/20 05:52 Ovalocytes Not Reportable 11/29/20 05:52 Helmet Cells Not Reportable 11/29/20 05:52 Kim-Shubert Bodies Not Reportable 11/29/20 05:52 [place] Rings Not Reportable 11/29/20 05:52 Tivoli Cells Not Reportable 11/29/20 05:52 Bite Cells Not Reportable 11/29/20 05:52 Crenated Cell Not Reportable 11/29/20 05:52 Elliptocytes Not Reportable 11/29/20 05:52 Acanthocytes (Spur) Not Reportable 11/29/20 05:52 Rouleaux Not Reportable 11/29/20 05:52 Hemoglobin C Crystals Not Reportable 11/29/20 05:52 Schistocytes Not Reportable 11/29/20 05:52 Malaria parasites Not Reportable 11/29/20 05:52 Jones Bodies Not Reportable 11/29/20 05:52 Hem Pathologist Commnt No 11/29/20 05:52 PT 11.5 Sec. (12.2-14.9) L 11/11/20 09:02 INR 0.86 (0.87-1.13) L 11/11/20 09:02 APTT 25.5 Sec. (24.2-36.6) 11/11/20 09:02 Thrombin Time 17.0 Sec. (15.1-19.6) 11/11/20 09:02 ABG pH 7.499 (7.320-7.450) H 11/17/20 11:40 POC ABG pCO2 36.3 mmHg (32.0-48.0) 11/17/20 11:40 ABG pCO2 33.9 mm Hg 11/11/20 10:45 POC ABG pO2 140.8 mmHg (83-108) H 11/17/20 11:40 ABG pO2 222.2 mm Hg (80.0-90.0) H 11/11/20 10:45 POC ABG HCO3 27.6 11/17/20 11:40 ABG HCO3 24.9 mmol/L (20.0-26.0) 11/11/20 10:45 ABG O2 Saturation 98.1 (0-100) 11/17/20 11:40 ABG O2 Content 19.4 (0.0-44) 11/11/20 10:45 POC ABG Base Excess 4.4 11/17/20 11:40 ABG Base Excess 1.9 mmol/L (-2.0-3.0) 11/11/20 10:45 ABG Hemoglobin 11.8 (12.0-17.5) L 11/17/20 11:40 ABG Oxyhemoglobin 97.4 (94-98) 11/17/20 11:40 ABG Carboxyhemoglobin 0.6 % (0.0-5.0) 11/11/20 10:45 ABG Methemoglobin 0.3 (0.0-1.5) 11/17/20 11:40 ABG Sodium 135.1 mmol/L (136.0-145.0) L 11/17/20 11:40 ABG Potassium 4.2 mmol/L (3.40-4.50) 11/17/20 11:40 ABG Chloride 102.0 mmol/L (98-107) 11/17/20 11:40 ABG Glucose 110 mg/dL (65-95) H 11/17/20 11:40 Oxyhemoglobin 98.5 % (95.0-99.0) 11/11/20 10:45 Carboxyhemoglobin 0.4 (0.5-1.5) L 11/17/20 11:40 FiO2 21 % 11/11/20 10:45 FiO2 % 30 11/17/20 11:40 Sodium 136 mmol/L (137-145) L 12/12/20 04:43 Potassium 4.1 mmol/L (3.6-5.0) 12/12/20 04:43 Chloride 99.6 mmol/L (98-107) 12/12/20 04:43 Carbon Dioxide 28 mmol/L (22-30) 12/12/20 04:43 Anion Gap 13 mmol/L 12/12/20 04:43 BUN 21 mg/dL (9-20) H 12/12/20 04:43 Creatinine 0.5 mg/dL (0.8-1.3) L 12/12/20 04:43 Estimated GFR > 60 ml/min 12/12/20 04:43 BUN/Creatinine Ratio 42 % 12/12/20 04:43 Glucose 118 mg/dL (75-100) H 12/12/20 04:43 POC Glucose 117 mg/dL (70-105) H 12/12/20 17:07 Hemoglobin A1c 5.4 % (4-6) 11/12/20 07:26 Osmolality 274 Mosm/kg 11/29/20 13:08 Uric Acid 1.7 mg/dL (3.5-7.6) L 11/29/20 13:08 Calcium 8.5 mg/dL (8.4-10.2) 12/12/20 04:43 Magnesium 2.00 mg/dL (1.7-2.3) 11/11/20 09:02 Total Bilirubin 0.40 mg/dL (0.1-1.2) 11/29/20 05:52 AST 42 units/L (5-40) H 11/29/20 05:52 ALT 30 units/L (7-56) 11/29/20 05:52 Alkaline Phosphatase 156 units/L (35-129) H 11/29/20 05:52 Ammonia 29.0 umol/L (25-60) 11/12/20 08:47 Total Creatine Kinase 169 units/L (55-170) 11/11/20 09:02 CK-MB (CK-2) 6.6 ng/mL (0.0-4.0) H 11/11/20 09:02 CK-MB (CK-2) Rel Index 3.9 (0-4) 11/11/20 09:02 Troponin T < 0.010 ng/mL (0.00-0.029) 11/11/20 09:02 Total Protein 7.8 g/dL (6.3-8.2) 11/29/20 05:52 Albumin 3.2 g/dL (3.9-5) L 11/29/20 05:52 Albumin/Globulin Ratio 0.7 % 11/29/20 05:52 TSH 5.610 mlU/mL (0.270-4.200) H 11/29/20 05:52 Free T4 1.24 ng/dL (0.76-1.46) 11/29/20 10:31 Total Cortisol 25.5 mcg/dL () 11/29/20 05:52 Arterial Blood Glucose 110 mg/dL (65-95) H 11/17/20 11:40 Arterial Blood Ionized Calcium 4.9 mg/dL (4.6-5.3) 11/17/20 11:40 Urine Color Jennifer (Yellow) 12/05/20 06:20 Urine Turbidity Slightly-cloudy (Clear) 12/05/20 06:20 Urine pH 7.0 (5.0-7.0) 12/05/20 06:20 Ur Specific [place] 1.025 (1.003-1.030) 12/05/20 06:20 Urine Protein 30 mg/dl mg/dL (Negative) 12/05/20 06:20 Urine Glucose (UA) Neg mg/dL (Negative) 12/05/20 06:20 Urine Ketones Neg mg/dL (Negative) 12/05/20 06:20 Urine Blood Neg (Negative) 12/05/20 06:20 Urine Nitrite Neg (Negative) 12/05/20 06:20 Urine Bilirubin Neg (Negative) 12/05/20 06:20 Urine Urobilinogen 4.0 mg/dL (<2.0) 12/05/20 06:20 Ur Leukocyte Esterase Sm (Negative) 12/05/20 06:20 Urine WBC (Auto) 13.0 /HPF (0.0-6.0) H 12/05/20 06:20 Urine RBC (Auto) 2.0 /HPF (0.0-6.0) 12/05/20 06:20 U Epithel Cells (Auto) 2.0 /HPF (0-13.0) 12/05/20 06:20 Urine Bacteria (Auto) 1+ /HPF (Negative) 12/05/20 06:20 Urine Mucus Few /HPF 12/05/20 06:20 Urine Osmolality 610 Mosm/kg 11/29/20 11:09 Urine Opiates Screen Negative 11/11/20 20:27 Urine Methadone Screen Negative 11/11/20 20:27 Ur Barbiturates Screen Positive 11/11/20 20:27 Ur Phencyclidine Scrn Negative 11/11/20 20:27 Ur Amphetamines Screen Negative 11/11/20 20:27 Phenobarbital 4.3 ug/mL (15.0-40.0) L 11/12/20 08:47 U Benzodiazepines Scrn Negative 11/11/20 20:27 Urine Cocaine Screen Negative 11/11/20 20:27 U Marijuana (THC) Screen Negative 11/11/20 20:27 Drugs of Abuse Note Disclamer 11/11/20 20:27 Plasma/Serum Alcohol < 0.01 % (0-0.07) 11/11/20 09:02 Coronavirus (PCR) Negative (Negative) 12/02/20 Unknown [place]/IV: Voiding Method Condom Catheter Active Medications - Current Medications Current Medications: Generic Name Dose Route Start Last Admin Trade Name Freq PRN Reason Stop Dose Admin Acetaminophen 650 mg 11/11/20 22:58 12/07/20 21:13 Acetaminophen 325 Mg Tab PO 650 mg Q4H PRN Administration Pain MILD(1-3)/Fever >100.5/BAR Albuterol 2.5 mg 11/11/20 23:18 Albuterol 2.5 Mg/3 Ml Nebu IH Q3HRT PRN Wheezing Lipase/Protease/Amylase 1 each 11/12/20 12:00 Lipase 10,500/Protease 25,000/Amylase 43,750 (Units) Dr Cap FEEDTUBE PRN PRN For Clogged Feeding Tube Dextrose 50 ml 11/11/20 22:11 11/17/20 23:29 Dextrose 50% In Water (25gm) 50 Ml Syringe IV 10 ml ONCE PRN Administration Hypoglycemia Protocol Enoxaparin Sodium 40 mg 11/12/20 22:00 12/11/20 22:29 Enoxaparin 40 Mg/0.4 Ml Inj SUB-Q 40 mg QDAY@2200 KIRK Administration Protocol Folic Acid 1 mg 11/16/20 10:00 12/12/20 10:38 Folic Acid 1 Mg Tab PO 1 mg DAILY KIRK Administration Hydralazine HCl 10 mg 11/12/20 10:30 12/11/20 10:27 Hydralazine 20 Mg/1 Ml Inj IV 10 mg Q4H PRN Administration Hypertension Hydrophilic Ointment 1 applic 11/11/20 09:14 Lip Therapy Vaseline TP Q2HR PRN Dry Lips Insulin Human Regular 0 units 11/12/20 18:00 12/12/20 12:25 Insulin Regular, Human 100 Units/1 Ml SUB-Q Not Given Q6H [facility] Protocol Lansoprazole 30 mg 11/24/20 10:00 12/12/20 10:38 Lansoprazole 30 Mg Solutab FEEDTUBE 30 mg QDAY KIRK Administration Levetiracetam 1,000 mg 11/24/20 10:00 12/12/20 10:36 Levetiracetam 500 Mg/5 Ml Oral Liqd FEEDTUBE 1,000 mg BID KIRK Administration Metoclopramide HCl 10 mg 11/11/20 22:58 Metoclopramide 10 Mg/2 Ml Inj IV Q6H PRN Nausea And Vomiting Multi-Ingred Cream/Lotion/Oil/Oint 1 applic 11/11/20 09:14 Mineral Oil/Petrolatum, White Ophth Oint 3.5 Gm OU Q4HR PRN Dry Eye(s) Multivitamins 1 each 12/12/20 10:00 12/12/20 10:46 Multivitamins ,Therapeutic Tab PO 1 each DAILY KIRK Administration Naloxone HCl 2 mg 11/11/20 08:33 Naloxone 0.4 Mg/1 Ml Inj IV Q2MIN PRN Res Rate </= 8 or 02 SAT < 92% Ondansetron HCl 4 mg 11/11/20 22:58 Ondansetron 4 Mg/2 Ml Inj IV Q3H PRN Nausea And Vomiting Phenobarbital 15 mg 11/11/20 23:45 12/12/20 10:38 Phenobarbital 15 Mg Tab PO 15 mg BID KIRK Administration Simple Syrup 15 ml 11/12/20 12:00 12/08/20 07:15 Simple Syrup 15 Ml FEEDTUBE 15 ml PRN PRN Administration Hypoglycemia Simple Syrup 30 ml 11/12/20 12:00 Simple Syrup 15 Ml FEEDTUBE PRN PRN Hypoglycemia Sodium Bicarbonate 325 mg 11/12/20 12:00 Sodium Bicarbonate 325 Mg Tab FEEDTUBE PRN PRN For Clogged Feeding Tube Sodium Chloride 10 ml 11/11/20 23:00 12/12/20 10:39 Sodium Chloride 0.9% 10 Ml Flush Syringe IV 10 ml BID KIRK Administration Sodium Chloride 10 ml 11/11/20 22:58 Sodium Chloride 0.9% 10 Ml Flush Syringe IV PRN PRN LINE FLUSH Sodium Chloride 2 gm 11/30/20 22:23 12/12/20 16:14 Sodium Chloride 1 Gm Tab PO 2 gm TID KIRK Administration Thiamine HCl 100 mg 11/16/20 10:00 12/12/20 10:38 Thiamine 100 Mg Tab PO 100 mg QDAY KIRK Administration Nutrition/Malnutrition Assess - Dietary Evaluation Nutrition/Malnutrition Findings: Nutrition Notes Start: 11/12/20 08:26 Freq: Status: Active Protocol: Document 12/09/20 11:30 (Rec: 12/09/20 11:33 [email or web address]) Nutrition Notes Initial or Follow up Brief Note Current Diagnosis Respiratory Failure,Stroke Other Pertinent Diagnosis Seizures, Neurogenic Dysphagia Current Diet TF - Jevity 1.2 at 60ml/hr Labs/Tests Na 131 Cr 0.4 Pertinent Medications NaCl 2 grams Height 5 ft 9 in Weight 61 kg [place] Body Weight (kg) 72.72 BMI 19.8 Weight Status Underweight Subjective/Other Information FU for tolerance. Pt tolerating TF at goal rate. Percent of energy/protein needs met: 100% energy/pro Burn Absent Trauma Absent GI Symptoms None Difficulty In Swallowing Current % PO Negligible Minimum of two criteria No Interpretation of Weight Loss (severe) >5% in 1 month #2 Nutrition Diagnosis Inadequate energy intake Diagnosis Progress(for reassessment Continues documentation) #1 Nutrition Diagnosis Inadequate oral intake Diagnosis Progress(for reassessment Continues documentation) Is patient on ventilator? No Is Patient Ambulatory and/or Out of Bed No REE-(Samson-St. Jeor-confined to bed) [phone] Calculation Used for Recommendations Samson-St Jeor Additional Notes Pro needs 1.2-1.5g/k-88g/ day Fluid needs 1ml/kcal Nutrition Intervention Change Diet Order: TF Nutrition Support: Jevity 1.2 at 60 ml/hr Flush 50 mL q4h Kcal 1,728 Protein (gm) 80 Fluid (mL) 1,162 Goal #1 Meet at least 75% of estimated energy and protein needs via TF Goal #2 weight stability/increase Anticipated Discharge Needs: TF Jevity 1.2 at 60 ml/hr Follow-Up By: 12/16/20 Additional Comments FU for stable TF
[2020-12-12] MEDS: ENOXAPARIN 40 MG/0.4 ML INJ SUB-Q SCH (21:48)
[2020-12-12] MEDS: hydrALAZINE 20 MG/1 ML INJ IV PRN (21:49)
[2020-12-13] MEDS: INSULIN REGULAR, HUMAN 100 UNITS/1 ML SUB-Q SCH ×4 (06:08→22:50)
--- NOTE | 2020-12-13 10:22 | Progress Note ---
Assessment and Plan Assessment and plan: COVID-19 test negative x 2 [ 11/12/2020, 11/23/2020] --Acute hypoxic respiratory failure requiring intubation 11/11/2020 /extubated 11/17/2020 Reintubated 11/18/2020/extubated 11/19/2020 Patient is saturating 97% on room air today --Acute toxic metabolic encephalopathy Multifactorial, due to seizures, SIRS, hyponatremia, abnormal thyroid functions Unknown baseline, treat the underlying cause,Has no ongoing infective process CT head ,MRI brain is negative, Continue supportive care --History of seizure disorder; no new episodes of seizure Seizure precautions ,continue antiepileptic medications ,cannot drive CT head and brain MRI showed no acute etiology for seizure --SIRS; Etiology unknown-urinalysis negative, chest x-ray also negative COVID-19 test negative, supportive care antibiotics DC'd --Needs ENT as outpatient for evaluation of upper airway. He has no carcinoma as written in previous notes Needs further evaluation of liver lesion with MRI as outpatient Also needs to follow up with pulmonary in the office --Dysphagia; s/p PEG placement, continue PEG care PEG feeds per protocol, aspiration precautions --Hyponatremia; Sodium today 129, continue replacement therapy Closely monitor electrolytes --Abnormal low TSH; Free T4 wnl -- Hypokalemia; No resolved --DVT prophylaxis-SCDs, Lovenox --GI prophylaxis-PPIs --Full CODE STATUS; Closely monitor the patient and adjust management as needed Patient is medically stable for discharge to hospice/SNF Case management processing DC planning 12/02. His sodium has improved. Awaiting placement. Has no family. Patient is a [place] of the [place]. He will need ENT evaluation with laryngoscopy at discharge. 12/03; potassium sodium continues to be low, continue current management nephrology following, awaiting placement 12/04: Awaiting placement. No issues noted overnight, Hypokalemia resolved. Monitor for aspiration precautions. Continue current management with nephrology 12/05: Overall poor prognosis considering his overall medical condition. He still very lethargic very drowsy and somnolent. Urinalysis yesterday reveals urinary tract infection. Will start patient on empiric antibiotics while awaiting cultures. Strongly recommend that hospice should be considered for this patient 12/06: Unfortunately remains chronically ill. I did discuss with Mr. Appiah the patient care provider. I have also advised him of his current condition and that this patient will benefit from hospice or at the very least palliative care. No clinical improvement patient opens his eyes on noxious stimuli but no other movement. Continue wound prevention measures. 12/07/2020; pending placement, possible hospice Plan of care reviewed with the patient's nurse and case management 12/08/2020; pending placement 12/09/2020; awaiting placement, possible hospice house DC planning per case management 12/10/20; awaiting placement, medically stable 12/10/2020; pending placement 12/11/20; patient is medically stable, tolerating tube feeding, alert and awake No new changes, awaiting placement 12/12/2020; patient feels better, tolerating tube feeds, minimally communicative, awaiting placement 12/13/2020; patient is stable, awaiting placement DC planning per case management History Interval history: I have seen and examined the patient at the bedside this morning Patient's chart and medications reviewed Nurse reports that she doesn't have any concerns about the patient Alert and awake noncommunicative Vital signs noted Hospitalist Physical - Constitutional Vitals: Temp Pulse Resp BP Pulse Ox 97.9 F 86 18 113/66 100 12/13/20 04:51 12/13/20 04:51 12/13/20 04:51 12/13/20 04:51 12/13/20 04:51 General appearance: Present: no acute distress, cachectic, disheveled, other (Noncommunicative) - EENT Eyes: Present: PERRL, EOM intact - Neck Neck: Present: supple, normal ROM - Respiratory Respiratory effort: normal Respiratory: bilateral: diminished, negative: rales, rhonchi, wheezing - Cardiovascular Rhythm: regular Heart Sounds: Present: S1 & S2 - Extremities Extremities: no ischemia, No edema - Abdominal General gastrointestinal: soft, non-tender, non-distended, normal bowel sounds - Integumentary Integumentary: Present: clear, warm - Psychiatric Psychiatric: appropriate mood/affect, cooperative - Neurologic Neurologic: CNII-XII intact, moves all extremities HEART Score - HEART Score Troponin: Troponin T < 0.010 ng/mL (0.00-0.029) 11/11/20 09:02 Results - Labs CBC & Chem 7: 12/06/20 08:33 12/12/20 04:43 Labs: Laboratory Last Values WBC 12.8 K/mm3 (4.5-11.0) H 12/06/20 08:33 RBC 4.44 M/mm3 (3.65-5.03) 12/06/20 08:33 Hgb 12.5 gm/dl (11.8-15.2) 12/06/20 08:33 Hct 37.2 % (35.5-45.6) 12/06/20 08:33 MCV 84 fl (84-94) 12/06/20 08:33 MCH 28 pg (28-32) 12/06/20 08:33 MCHC 34 % (32-34) 12/06/20 08:33 RDW 15.3 % (13.2-15.2) H 12/06/20 08:33 Plt Count 428 K/mm3 (140-440) 12/06/20 08:33 Lymph % (Auto) 18.3 % (13.4-35.0) 11/26/20 06:23 Murray % (Auto) 9.8 % (0.0-7.3) H 11/26/20 06:23 Eos % (Auto) 1.1 % (0.0-4.3) 11/26/20 06:23 Baso % (Auto) 0.7 % (0.0-1.8) 11/26/20 06:23 Lymph # (Auto) 1.7 K/mm3 (1.2-5.4) 11/26/20 06:23 Murray # (Auto) 0.9 K/mm3 (0.0-0.8) H 11/26/20 06:23 Eos # (Auto) 0.1 K/mm3 (0.0-0.4) 11/26/20 06:23 Baso # (Auto) 0.1 K/mm3 (0.0-0.1) 11/26/20 06:23 Add Manual Diff Complete 11/29/20 05:52 Total Counted 100 11/29/20 05:52 Seg Neutrophils % 70.1 % (40.0-70.0) H 11/26/20 06:23 Seg Neuts % (Manual) 76.0 % (40.0-70.0) H 11/29/20 05:52 Lymphocytes % (Manual) 10.0 % (13.4-35.0) L 11/29/20 05:52 Reactive Lymphs % (Man) 4.0 % 11/27/20 05:50 Monocytes % (Manual) 10.0 % (0.0-7.3) H 11/29/20 05:52 Eosinophils % (Manual) 3.0 % (0.0-4.3) 11/29/20 05:52 Metamyelocytes % 1.0 % 11/29/20 05:52 Nucleated RBC % Not Reportable 11/29/20 05:52 Seg Neutrophils # 9.5 K/mm3 (1.8-7.7) H 11/26/20 06:23 Seg Neutrophils # Man 7.4 K/mm3 (1.8-7.7) 11/29/20 05:52 Band Neutrophils # 0.0 K/mm3 11/29/20 05:52 Lymphocytes # (Manual) 1.0 K/mm3 (1.2-5.4) L 11/29/20 05:52 Abs React Lymphs (Man) 0.0 K/mm3 11/29/20 05:52 Monocytes # (Manual) 1.0 K/mm3 (0.0-0.8) H 11/29/20 05:52 Eosinophils # (Manual) 0.3 K/mm3 (0.0-0.4) 11/29/20 05:52 Basophils # (Manual) 0.0 K/mm3 (0.0-0.1) 11/29/20 05:52 Metamyelocytes # 0.1 K/mm3 11/29/20 05:52 Myelocytes # 0.0 K/mm3 11/29/20 05:52 Promyelocytes # 0.0 K/mm3 11/29/20 05:52 Blast Cells # 0.0 K/mm3 11/29/20 05:52 WBC Morphology Not Reportable 11/29/20 05:52 Hypersegmented Neuts Not Reportable 11/29/20 05:52 Hyposegmented Neuts Not Reportable 11/29/20 05:52 Hypogranular Neuts Not Reportable 11/29/20 05:52 Smudge Cells Not Reportable 11/29/20 05:52 Toxic Granulation Not Reportable 11/29/20 05:52 Toxic Vacuolation Not Reportable 11/29/20 05:52 Dohle Bodies Not Reportable 11/29/20 05:52 Pelger-Huet Anomaly Not Reportable 11/29/20 05:52 Fercho Rods Not Reportable 11/29/20 05:52 Platelet Estimate Consistent w auto 11/29/20 05:52 Clumped Platelets Not Reportable 11/29/20 05:52 Plt Clumps, EDTA Not Reportable 11/29/20 05:52 Large Platelets Not Reportable 11/29/20 05:52 Giant Platelets Not Reportable 11/29/20 05:52 Platelet Satelliting Not Reportable 11/29/20 05:52 Plt Morphology Comment Not Reportable 11/29/20 05:52 RBC Morphology Not Reportable 11/29/20 05:52 Dimorphic RBCs Not Reportable 11/29/20 05:52 Polychromasia Not Reportable 11/29/20 05:52 Hypochromasia Not Reportable 11/29/20 05:52 Poikilocytosis Not Reportable 11/29/20 05:52 Anisocytosis Few 11/29/20 05:52 Microcytosis Not Reportable 11/29/20 05:52 Macrocytosis Not Reportable 11/29/20 05:52 Spherocytes Not Reportable 11/29/20 05:52 Pappenheimer Bodies Not Reportable 11/29/20 05:52 Sickle Cells Not Reportable 11/29/20 05:52 Target Cells Few 11/29/20 05:52 Tear Drop Cells Not Reportable 11/29/20 05:52 Ovalocytes Not Reportable 11/29/20 05:52 Helmet Cells Not Reportable 11/29/20 05:52 [place] Bodies Not Reportable 11/29/20 05:52 [place] Rings Not Reportable 11/29/20 05:52 Joni Cells Not Reportable 11/29/20 05:52 Bite Cells Not Reportable 11/29/20 05:52 Crenated Cell Not Reportable 11/29/20 05:52 Elliptocytes Not Reportable 11/29/20 05:52 Acanthocytes (Spur) Not Reportable 11/29/20 05:52 Rouleaux Not Reportable 11/29/20 05:52 Hemoglobin C Crystals Not Reportable 11/29/20 05:52 Schistocytes Not Reportable 11/29/20 05:52 Malaria parasites Not Reportable 11/29/20 05:52 Jones Bodies Not Reportable 11/29/20 05:52 Hem Pathologist Commnt No 11/29/20 05:52 PT 11.5 Sec. (12.2-14.9) L 11/11/20 09:02 INR 0.86 (0.87-1.13) L 11/11/20 09:02 APTT 25.5 Sec. (24.2-36.6) 11/11/20 09:02 Thrombin Time 17.0 Sec. (15.1-19.6) 11/11/20 09:02 ABG pH 7.499 (7.320-7.450) H 11/17/20 11:40 POC ABG pCO2 36.3 mmHg (32.0-48.0) 11/17/20 11:40 ABG pCO2 33.9 mm Hg 11/11/20 10:45 POC ABG pO2 140.8 mmHg (83-108) H 11/17/20 11:40 ABG pO2 222.2 mm Hg (80.0-90.0) H 11/11/20 10:45 POC ABG HCO3 27.6 11/17/20 11:40 ABG HCO3 24.9 mmol/L (20.0-26.0) 11/11/20 10:45 ABG O2 Saturation 98.1 (0-100) 11/17/20 11:40 ABG O2 Content 19.4 (0.0-44) 11/11/20 10:45 POC ABG Base Excess 4.4 11/17/20 11:40 ABG Base Excess 1.9 mmol/L (-2.0-3.0) 11/11/20 10:45 ABG Hemoglobin 11.8 (12.0-17.5) L 11/17/20 11:40 ABG Oxyhemoglobin 97.4 (94-98) 11/17/20 11:40 ABG Carboxyhemoglobin 0.6 % (0.0-5.0) 11/11/20 10:45 ABG Methemoglobin 0.3 (0.0-1.5) 11/17/20 11:40 ABG Sodium 135.1 mmol/L (136.0-145.0) L 11/17/20 11:40 ABG Potassium 4.2 mmol/L (3.40-4.50) 11/17/20 11:40 ABG Chloride 102.0 mmol/L (98-107) 11/17/20 11:40 ABG Glucose 110 mg/dL (65-95) H 11/17/20 11:40 Oxyhemoglobin 98.5 % (95.0-99.0) 11/11/20 10:45 Carboxyhemoglobin 0.4 (0.5-1.5) L 11/17/20 11:40 FiO2 21 % 11/11/20 10:45 FiO2 % 30 11/17/20 11:40 Sodium 136 mmol/L (137-145) L 12/12/20 04:43 Potassium 4.1 mmol/L (3.6-5.0) 12/12/20 04:43 Chloride 99.6 mmol/L (98-107) 12/12/20 04:43 Carbon Dioxide 28 mmol/L (22-30) 12/12/20 04:43 Anion Gap 13 mmol/L 12/12/20 04:43 BUN 21 mg/dL (9-20) H 12/12/20 04:43 Creatinine 0.5 mg/dL (0.8-1.3) L 12/12/20 04:43 Estimated GFR > 60 ml/min 12/12/20 04:43 BUN/Creatinine Ratio 42 % 12/12/20 04:43 Glucose 118 mg/dL (75-100) H 12/12/20 04:43 POC Glucose 123 mg/dL (70-105) H 12/13/20 05:48 Hemoglobin A1c 5.4 % (4-6) 11/12/20 07:26 Osmolality 274 Mosm/kg 11/29/20 13:08 Uric Acid 1.7 mg/dL (3.5-7.6) L 11/29/20 13:08 Calcium 8.5 mg/dL (8.4-10.2) 12/12/20 04:43 Magnesium 2.00 mg/dL (1.7-2.3) 11/11/20 09:02 Total Bilirubin 0.40 mg/dL (0.1-1.2) 11/29/20 05:52 AST 42 units/L (5-40) H 11/29/20 05:52 ALT 30 units/L (7-56) 11/29/20 05:52 Alkaline Phosphatase 156 units/L (35-129) H 11/29/20 05:52 Ammonia 29.0 umol/L (25-60) 11/12/20 08:47 Total Creatine Kinase 169 units/L (55-170) 11/11/20 09:02 CK-MB (CK-2) 6.6 ng/mL (0.0-4.0) H 11/11/20 09:02 CK-MB (CK-2) Rel Index 3.9 (0-4) 11/11/20 09:02 Troponin T < 0.010 ng/mL (0.00-0.029) 11/11/20 09:02 Total Protein 7.8 g/dL (6.3-8.2) 11/29/20 05:52 Albumin 3.2 g/dL (3.9-5) L 11/29/20 05:52 Albumin/Globulin Ratio 0.7 % 11/29/20 05:52 TSH 5.610 mlU/mL (0.270-4.200) H 11/29/20 05:52 Free T4 1.24 ng/dL (0.76-1.46) 11/29/20 10:31 Total Cortisol 25.5 mcg/dL () 11/29/20 05:52 Arterial Blood Glucose 110 mg/dL (65-95) H 11/17/20 11:40 Arterial Blood Ionized Calcium 4.9 mg/dL (4.6-5.3) 11/17/20 11:40 Urine Color Jennifer (Yellow) 12/05/20 06:20 Urine Turbidity Slightly-cloudy (Clear) 12/05/20 06:20 Urine pH 7.0 (5.0-7.0) 12/05/20 06:20 Ur Specific [place] 1.025 (1.003-1.030) 12/05/20 06:20 Urine Protein 30 mg/dl mg/dL (Negative) 12/05/20 06:20 Urine Glucose (UA) Neg mg/dL (Negative) 12/05/20 06:20 Urine Ketones Neg mg/dL (Negative) 12/05/20 06:20 Urine Blood Neg (Negative) 12/05/20 06:20 Urine Nitrite Neg (Negative) 12/05/20 06:20 Urine Bilirubin Neg (Negative) 12/05/20 06:20 Urine Urobilinogen 4.0 mg/dL (<2.0) 12/05/20 06:20 Ur Leukocyte Esterase Sm (Negative) 12/05/20 06:20 Urine WBC (Auto) 13.0 /HPF (0.0-6.0) H 12/05/20 06:20 Urine RBC (Auto) 2.0 /HPF (0.0-6.0) 12/05/20 06:20 U Epithel Cells (Auto) 2.0 /HPF (0-13.0) 12/05/20 06:20 Urine Bacteria (Auto) 1+ /HPF (Negative) 12/05/20 06:20 Urine Mucus Few /HPF 12/05/20 06:20 Urine Osmolality 610 Mosm/kg 11/29/20 11:09 Urine Opiates Screen Negative 11/11/20 20:27 Urine Methadone Screen Negative 11/11/20 20:27 Ur Barbiturates Screen Positive 11/11/20 20:27 Ur Phencyclidine Scrn Negative 11/11/20 20:27 Ur Amphetamines Screen Negative 11/11/20 20:27 Phenobarbital 4.3 ug/mL (15.0-40.0) L 11/12/20 08:47 U Benzodiazepines Scrn Negative 11/11/20 20:27 Urine Cocaine Screen Negative 11/11/20 20:27 U Marijuana (THC) Screen Negative 11/11/20 20:27 Drugs of Abuse Note Disclamer 11/11/20 20:27 Plasma/Serum Alcohol < 0.01 % (0-0.07) 11/11/20 09:02 Coronavirus (PCR) Negative (Negative) 12/02/20 Unknown [place]/IV: Voiding Method Condom Catheter Active Medications - Current Medications Current Medications: Generic Name Dose Route Start Last Admin Trade Name Freq PRN Reason Stop Dose Admin Acetaminophen 650 mg 11/11/20 22:58 12/07/20 21:13 Acetaminophen 325 Mg Tab PO 650 mg Q4H PRN Administration Pain MILD(1-3)/Fever >100.5/BAR Lipase/Protease/Amylase 1 each 11/12/20 12:00 Lipase 10,500/Protease 25,000/Amylase 43,750 (Units) Dr Rangel FEEDTUBE PRN PRN For Clogged Feeding Tube Enoxaparin Sodium 40 mg 11/12/20 22:00 12/12/20 21:48 Enoxaparin 40 Mg/0.4 Ml Inj SUB-Q 40 mg QDAY@2200 KIRK Administration Protocol Folic Acid 1 mg 11/16/20 10:00 12/12/20 10:38 Folic Acid 1 Mg Tab PO 1 mg DAILY KIRK Administration Hydralazine HCl 10 mg 11/12/20 10:30 12/12/20 21:49 Hydralazine 20 Mg/1 Ml Inj IV 10 mg Q4H PRN Administration Hypertension Hydrophilic Ointment 1 applic 11/11/20 09:14 Lip Therapy Vaseline TP Q2HR PRN Dry Lips Insulin Human Regular 0 units 11/12/20 18:00 12/13/20 06:08 Insulin Regular, Human 100 Units/1 Ml SUB-Q Not Given Q6H [facility] Protocol Lansoprazole 30 mg 11/24/20 10:00 12/12/20 10:38 Lansoprazole 30 Mg Solutab FEEDTUBE 30 mg QDAY KIRK Administration Levetiracetam 1,000 mg 11/24/20 10:00 12/12/20 21:48 Levetiracetam 500 Mg/5 Ml Oral Liqd FEEDTUBE 1,000 mg BID KIRK Administration Multi-Ingred Cream/Lotion/Oil/Oint 1 applic 11/11/20 09:14 Mineral Oil/Petrolatum, White Ophth Oint 3.5 Gm OU Q4HR PRN Dry Eye(s) Multivitamins 1 each 12/12/20 10:00 12/12/20 10:46 Multivitamins ,Therapeutic Tab PO 1 each DAILY KIRK Administration Naloxone HCl 2 mg 11/11/20 08:33 Naloxone 0.4 Mg/1 Ml Inj IV Q2MIN PRN Res Rate </= 8 or 02 SAT < 92% Phenobarbital 15 mg 11/11/20 23:45 12/12/20 21:49 Phenobarbital 15 Mg Tab PO 15 mg BID KIRK Administration Simple Syrup 15 ml 11/12/20 12:00 12/08/20 07:15 Simple Syrup 15 Ml FEEDTUBE 15 ml PRN PRN Administration Hypoglycemia Simple Syrup 30 ml 11/12/20 12:00 Simple Syrup 15 Ml FEEDTUBE PRN PRN Hypoglycemia Sodium Bicarbonate 325 mg 11/12/20 12:00 Sodium Bicarbonate 325 Mg Tab FEEDTUBE PRN PRN For Clogged Feeding Tube Sodium Chloride 10 ml 11/11/20 23:00 12/12/20 21:49 Sodium Chloride 0.9% 10 Ml Flush Syringe IV 10 ml BID KIRK Administration Sodium Chloride 10 ml 11/11/20 22:58 Sodium Chloride 0.9% 10 Ml Flush Syringe IV PRN PRN LINE FLUSH Sodium Chloride 2 gm 11/30/20 22:23 12/12/20 20:54 Sodium Chloride 1 Gm Tab PO 2 gm TID KIRK Administration Thiamine HCl 100 mg 11/16/20 10:00 12/12/20 10:38 Thiamine 100 Mg Tab PO 100 mg QDAY KIRK Administration Nutrition/Malnutrition Assess - Dietary Evaluation Nutrition/Malnutrition Findings: Nutrition Notes Start: 11/12/20 08:26 Freq: Status: Active Protocol: Document 12/09/20 11:30 (Rec: 12/09/20 11:33 [id number]) Nutrition Notes Initial or Follow up Brief Note Current Diagnosis Respiratory Failure,Stroke Other Pertinent Diagnosis Seizures, Neurogenic Dysphagia Current Diet TF - Jevity 1.2 at 60ml/hr Labs/Tests Na 131 Cr 0.4 Pertinent Medications NaCl 2 grams Height 5 ft 9 in Weight 61 kg [place] Body Weight (kg) 72.72 BMI 19.8 Weight Status Underweight Subjective/Other Information FU for tolerance. Pt tolerating TF at goal rate. Percent of energy/protein needs met: 100% energy/pro Burn Absent Trauma Absent GI Symptoms None Difficulty In Swallowing Current % PO Negligible Minimum of two criteria No Interpretation of Weight Loss (severe) >5% in 1 month #2 Nutrition Diagnosis Inadequate energy intake Diagnosis Progress(for reassessment Continues documentation) #1 Nutrition Diagnosis Inadequate oral intake Diagnosis Progress(for reassessment Continues documentation) Is patient on ventilator? No Is Patient Ambulatory and/or Out of Bed No REE-([facility]-confined to bed) 2868.086 Calculation Used for Recommendations [facility] Additional Notes Pro needs 1.2-1.5g/k-88g/ day Fluid needs 1ml/kcal Nutrition Intervention Change Diet Order: TF Nutrition Support: Jevity 1.2 at 60 ml/hr Flush 50 mL q4h Kcal 1,728 Protein (gm) 80 Fluid (mL) 1,162 Goal #1 Meet at least 75% of estimated energy and protein needs via TF Goal #2 weight stability/increase Anticipated Discharge Needs: TF Jevity 1.2 at 60 ml/hr Follow-Up By: 12/16/20 Additional Comments FU for stable TF
[2020-12-13] MEDS: PHENobarbital 15 MG TAB PO SCH ×2 (10:44→21:26)
[2020-12-13] MEDS: LANSOPRAZOLE 30 MG SOLUTAB FEEDTUBE SCH (10:45)
[2020-12-13] MEDS: THIAMINE 100 MG TAB PO SCH (10:45)
[2020-12-13] MEDS: FOLIC ACID 1 MG TAB PO SCH (10:45)
[2020-12-13] MEDS: levETIRAcetam 500 MG/5 ML ORAL LIQD FEEDTUBE SCH ×2 (10:45→21:24)
[2020-12-13] MEDS: SODIUM CHLORIDE 1 GM TAB PO SCH ×3 (10:45→22:50)
[2020-12-13] MEDS: MULTIVITAMINS ,THERAPEUTIC TAB PO SCH (10:45)
[2020-12-13] MEDS: ACETAMINOPHEN 325 MG TAB PO PRN (21:24)
[2020-12-13] MEDS: ENOXAPARIN 40 MG/0.4 ML INJ SUB-Q SCH (21:24)
[2020-12-14] MEDS: INSULIN REGULAR, HUMAN 100 UNITS/1 ML SUB-Q SCH ×4 (06:07→18:29)
[2020-12-14] MEDS: SODIUM CHLORIDE 1 GM TAB PO SCH ×3 (08:43→22:14)
--- NOTE | 2020-12-14 08:48 | Progress Note ---
Assessment and Plan Assessment and plan: COVID-19 test negative x 2 [ 11/12/2020, 11/23/2020] --Acute hypoxic respiratory failure requiring intubation 11/11/2020 /extubated 11/17/2020 Reintubated 11/18/2020/extubated 11/19/2020 Patient is saturating 97% on room air today --Acute toxic metabolic encephalopathy Multifactorial, due to seizures, SIRS, hyponatremia, abnormal thyroid functions Unknown baseline, treat the underlying cause,Has no ongoing infective process CT head ,MRI brain is negative, Continue supportive care --History of seizure disorder; no new episodes of seizure Seizure precautions ,continue antiepileptic medications ,cannot drive CT head and brain MRI showed no acute etiology for seizure --SIRS; Etiology unknown-urinalysis negative, chest x-ray also negative COVID-19 test negative, supportive care antibiotics DC'd --Needs ENT as outpatient for evaluation of upper airway. He has no carcinoma as written in previous notes Needs further evaluation of liver lesion with MRI as outpatient Also needs to follow up with pulmonary in the office --Dysphagia; s/p PEG placement, continue PEG care PEG feeds per protocol, aspiration precautions --Hyponatremia; Sodium today 129, continue replacement therapy Closely monitor electrolytes --Abnormal low TSH; Free T4 wnl -- Hypokalemia; No resolved --DVT prophylaxis-SCDs, Lovenox --GI prophylaxis-PPIs --Full CODE STATUS; Closely monitor the patient and adjust management as needed Patient is medically stable for discharge to hospice/SNF Case management processing DC planning 12/02. His sodium has improved. Awaiting placement. Has no family. Patient is a [place] of [place]. He will need ENT evaluation with laryngoscopy at discharge. 12/03; potassium sodium continues to be low, continue current management nephrology following, awaiting placement 12/04: Awaiting placement. No issues noted overnight, Hypokalemia resolved. Monitor for aspiration precautions. Continue current management with nephrology 12/05: Overall poor prognosis considering his overall medical condition. He still very lethargic very drowsy and somnolent. Urinalysis yesterday reveals urinary tract infection. Will start patient on empiric antibiotics while awaiting cultures. Strongly recommend that hospice should be considered for this patient 12/06: Unfortunately remains chronically ill. I did discuss with Mr. Appiah the patient care provider. I have also advised him of his current condition and that this patient will benefit from hospice or at the very least palliative care. No clinical improvement patient opens his eyes on noxious stimuli but no other movement. Continue wound prevention measures. 12/07/2020; pending placement, possible hospice Plan of care reviewed with the patient's nurse and case management 12/08/2020; pending placement 12/09/2020; awaiting placement, possible hospice house DC planning per case management 12/10/20; awaiting placement, medically stable 12/10/2020; pending placement 12/11/20; patient is medically stable, tolerating tube feeding, alert and awake No new changes, awaiting placement 12/12/2020; patient feels better, tolerating tube feeds, minimally communicative, awaiting placement 12/13/2020; patient is stable, awaiting placement DC planning per case management 12/14/2020; pending placement History Interval history: Patient is alert and awake confused noncommunicative Vital signs noted Patient is clinically stable awaiting placement Social issues Hospitalist Physical - Constitutional Vitals: Temp Pulse Resp BP Pulse Ox 99.2 F 89 18 166/83 98 12/13/20 22:55 12/13/20 22:55 12/13/20 22:55 12/13/20 22:55 12/13/20 22:55 General appearance: Present: no acute distress, cachectic, disheveled, other (Noncommunicative) - EENT Eyes: Present: PERRL, EOM intact - Neck Neck: Present: supple, normal ROM - Respiratory Respiratory effort: normal Respiratory: bilateral: diminished, negative: rales, rhonchi, wheezing - Cardiovascular Rhythm: regular Heart Sounds: Present: S1 & S2 - Extremities Extremities: no ischemia, No edema - Abdominal General gastrointestinal: soft, non-tender, non-distended, normal bowel sounds - Integumentary Integumentary: Present: clear, warm - Psychiatric Psychiatric: appropriate mood/affect, cooperative - Neurologic Neurologic: CNII-XII intact, moves all extremities HEART Score - HEART Score Troponin: Troponin T < 0.010 ng/mL (0.00-0.029) 11/11/20 09:02 Results - Labs CBC & Chem 7: 12/06/20 08:33 12/12/20 04:43 Labs: Laboratory Last Values WBC 12.8 K/mm3 (4.5-11.0) H 12/06/20 08:33 RBC 4.44 M/mm3 (3.65-5.03) 12/06/20 08:33 Hgb 12.5 gm/dl (11.8-15.2) 12/06/20 08:33 Hct 37.2 % (35.5-45.6) 12/06/20 08:33 MCV 84 fl (84-94) 12/06/20 08:33 MCH 28 pg (28-32) 12/06/20 08:33 MCHC 34 % (32-34) 12/06/20 08:33 RDW 15.3 % (13.2-15.2) H 12/06/20 08:33 Plt Count 428 K/mm3 (140-440) 12/06/20 08:33 Lymph % (Auto) 18.3 % (13.4-35.0) 11/26/20 06:23 [place] % (Auto) 9.8 % (0.0-7.3) H 11/26/20 06:23 Eos % (Auto) 1.1 % (0.0-4.3) 11/26/20 06:23 Baso % (Auto) 0.7 % (0.0-1.8) 11/26/20 06:23 Lymph # (Auto) 1.7 K/mm3 (1.2-5.4) 11/26/20 06:23 [place] # (Auto) 0.9 K/mm3 (0.0-0.8) H 11/26/20 06:23 Eos # (Auto) 0.1 K/mm3 (0.0-0.4) 11/26/20 06:23 Baso # (Auto) 0.1 K/mm3 (0.0-0.1) 11/26/20 06:23 Add Manual Diff Complete 11/29/20 05:52 Total Counted 100 11/29/20 05:52 Seg Neutrophils % 70.1 % (40.0-70.0) H 11/26/20 06:23 Seg Neuts % (Manual) 76.0 % (40.0-70.0) H 11/29/20 05:52 Lymphocytes % (Manual) 10.0 % (13.4-35.0) L 11/29/20 05:52 Reactive Lymphs % (Man) 4.0 % 11/27/20 05:50 Monocytes % (Manual) 10.0 % (0.0-7.3) H 11/29/20 05:52 Eosinophils % (Manual) 3.0 % (0.0-4.3) 11/29/20 05:52 Metamyelocytes % 1.0 % 11/29/20 05:52 Nucleated RBC % Not Reportable 11/29/20 05:52 Seg Neutrophils # 9.5 K/mm3 (1.8-7.7) H 11/26/20 06:23 Seg Neutrophils # Man 7.4 K/mm3 (1.8-7.7) 11/29/20 05:52 Band Neutrophils # 0.0 K/mm3 11/29/20 05:52 Lymphocytes # (Manual) 1.0 K/mm3 (1.2-5.4) L 11/29/20 05:52 Abs React Lymphs (Man) 0.0 K/mm3 11/29/20 05:52 Monocytes # (Manual) 1.0 K/mm3 (0.0-0.8) H 11/29/20 05:52 Eosinophils # (Manual) 0.3 K/mm3 (0.0-0.4) 11/29/20 05:52 Basophils # (Manual) 0.0 K/mm3 (0.0-0.1) 11/29/20 05:52 Metamyelocytes # 0.1 K/mm3 11/29/20 05:52 Myelocytes # 0.0 K/mm3 11/29/20 05:52 Promyelocytes # 0.0 K/mm3 11/29/20 05:52 Blast Cells # 0.0 K/mm3 11/29/20 05:52 WBC Morphology Not Reportable 11/29/20 05:52 Hypersegmented Neuts Not Reportable 11/29/20 05:52 Hyposegmented Neuts Not Reportable 11/29/20 05:52 Hypogranular Neuts Not Reportable 11/29/20 05:52 Smudge Cells Not Reportable 11/29/20 05:52 Toxic Granulation Not Reportable 11/29/20 05:52 Toxic Vacuolation Not Reportable 11/29/20 05:52 Dohle Bodies Not Reportable 11/29/20 05:52 Pelger-Huet Anomaly Not Reportable 11/29/20 05:52 Fercho Rods Not Reportable 11/29/20 05:52 Platelet Estimate Consistent w auto 11/29/20 05:52 Clumped Platelets Not Reportable 11/29/20 05:52 Plt Clumps, EDTA Not Reportable 11/29/20 05:52 Large Platelets Not Reportable 11/29/20 05:52 Giant Platelets Not Reportable 11/29/20 05:52 Platelet Satelliting Not Reportable 11/29/20 05:52 Plt Morphology Comment Not Reportable 11/29/20 05:52 RBC Morphology Not Reportable 11/29/20 05:52 Dimorphic RBCs Not Reportable 11/29/20 05:52 Polychromasia Not Reportable 11/29/20 05:52 Hypochromasia Not Reportable 11/29/20 05:52 Poikilocytosis Not Reportable 11/29/20 05:52 Anisocytosis Few 11/29/20 05:52 Microcytosis Not Reportable 11/29/20 05:52 Macrocytosis Not Reportable 11/29/20 05:52 Spherocytes Not Reportable 11/29/20 05:52 Pappenheimer Bodies Not Reportable 11/29/20 05:52 Sickle Cells Not Reportable 11/29/20 05:52 Target Cells Few 11/29/20 05:52 Tear Drop Cells Not Reportable 11/29/20 05:52 Ovalocytes Not Reportable 11/29/20 05:52 Helmet Cells Not Reportable 11/29/20 05:52 [place] Bodies Not Reportable 11/29/20 05:52 [place] Rings Not Reportable 11/29/20 05:52 [place] Cells Not Reportable 11/29/20 05:52 Bite Cells Not Reportable 11/29/20 05:52 Crenated Cell Not Reportable 11/29/20 05:52 Elliptocytes Not Reportable 11/29/20 05:52 Acanthocytes (Spur) Not Reportable 11/29/20 05:52 Rouleaux Not Reportable 11/29/20 05:52 Hemoglobin C Crystals Not Reportable 11/29/20 05:52 Schistocytes Not Reportable 11/29/20 05:52 Malaria parasites Not Reportable 11/29/20 05:52 Jones Bodies Not Reportable 11/29/20 05:52 Hem Pathologist Commnt No 11/29/20 05:52 PT 11.5 Sec. (12.2-14.9) L 11/11/20 09:02 INR 0.86 (0.87-1.13) L 11/11/20 09:02 APTT 25.5 Sec. (24.2-36.6) 11/11/20 09:02 Thrombin Time 17.0 Sec. (15.1-19.6) 11/11/20 09:02 ABG pH 7.499 (7.320-7.450) H 11/17/20 11:40 POC ABG pCO2 36.3 mmHg (32.0-48.0) 11/17/20 11:40 ABG pCO2 33.9 mm Hg 11/11/20 10:45 POC ABG pO2 140.8 mmHg (83-108) H 11/17/20 11:40 ABG pO2 222.2 mm Hg (80.0-90.0) H 11/11/20 10:45 POC ABG HCO3 27.6 11/17/20 11:40 ABG HCO3 24.9 mmol/L (20.0-26.0) 11/11/20 10:45 ABG O2 Saturation 98.1 (0-100) 11/17/20 11:40 ABG O2 Content 19.4 (0.0-44) 11/11/20 10:45 POC ABG Base Excess 4.4 11/17/20 11:40 ABG Base Excess 1.9 mmol/L (-2.0-3.0) 11/11/20 10:45 ABG Hemoglobin 11.8 (12.0-17.5) L 11/17/20 11:40 ABG Oxyhemoglobin 97.4 (94-98) 11/17/20 11:40 ABG Carboxyhemoglobin 0.6 % (0.0-5.0) 11/11/20 10:45 ABG Methemoglobin 0.3 (0.0-1.5) 11/17/20 11:40 ABG Sodium 135.1 mmol/L (136.0-145.0) L 11/17/20 11:40 ABG Potassium 4.2 mmol/L (3.40-4.50) 11/17/20 11:40 ABG Chloride 102.0 mmol/L (98-107) 11/17/20 11:40 ABG Glucose 110 mg/dL (65-95) H 11/17/20 11:40 Oxyhemoglobin 98.5 % (95.0-99.0) 11/11/20 10:45 Carboxyhemoglobin 0.4 (0.5-1.5) L 11/17/20 11:40 FiO2 21 % 11/11/20 10:45 FiO2 % 30 11/17/20 11:40 Sodium 136 mmol/L (137-145) L 12/12/20 04:43 Potassium 4.1 mmol/L (3.6-5.0) 12/12/20 04:43 Chloride 99.6 mmol/L (98-107) 12/12/20 04:43 Carbon Dioxide 28 mmol/L (22-30) 12/12/20 04:43 Anion Gap 13 mmol/L 12/12/20 04:43 BUN 21 mg/dL (9-20) H 12/12/20 04:43 Creatinine 0.5 mg/dL (0.8-1.3) L 12/12/20 04:43 Estimated GFR > 60 ml/min 12/12/20 04:43 BUN/Creatinine Ratio 42 % 12/12/20 04:43 Glucose 118 mg/dL (75-100) H 12/12/20 04:43 POC Glucose 129 mg/dL (70-105) H 12/13/20 23:18 Hemoglobin A1c 5.4 % (4-6) 11/12/20 07:26 Osmolality 274 Mosm/kg 11/29/20 13:08 Uric Acid 1.7 mg/dL (3.5-7.6) L 11/29/20 13:08 Calcium 8.5 mg/dL (8.4-10.2) 12/12/20 04:43 Magnesium 2.00 mg/dL (1.7-2.3) 11/11/20 09:02 Total Bilirubin 0.40 mg/dL (0.1-1.2) 11/29/20 05:52 AST 42 units/L (5-40) H 11/29/20 05:52 ALT 30 units/L (7-56) 11/29/20 05:52 Alkaline Phosphatase 156 units/L (35-129) H 11/29/20 05:52 Ammonia 29.0 umol/L (25-60) 11/12/20 08:47 Total Creatine Kinase 169 units/L (55-170) 11/11/20 09:02 CK-MB (CK-2) 6.6 ng/mL (0.0-4.0) H 11/11/20 09:02 CK-MB (CK-2) Rel Index 3.9 (0-4) 11/11/20 09:02 Troponin T < 0.010 ng/mL (0.00-0.029) 11/11/20 09:02 Total Protein 7.8 g/dL (6.3-8.2) 11/29/20 05:52 Albumin 3.2 g/dL (3.9-5) L 11/29/20 05:52 Albumin/Globulin Ratio 0.7 % 11/29/20 05:52 TSH 5.610 mlU/mL (0.270-4.200) H 11/29/20 05:52 Free T4 1.24 ng/dL (0.76-1.46) 11/29/20 10:31 Total Cortisol 25.5 mcg/dL () 11/29/20 05:52 Arterial Blood Glucose 110 mg/dL (65-95) H 11/17/20 11:40 Arterial Blood Ionized Calcium 4.9 mg/dL (4.6-5.3) 11/17/20 11:40 Urine Color [place] (Yellow) 12/05/20 06:20 Urine Turbidity Slightly-cloudy (Clear) 12/05/20 06:20 Urine pH 7.0 (5.0-7.0) 12/05/20 06:20 Ur Specific [place] 1.025 (1.003-1.030) 12/05/20 06:20 Urine Protein 30 mg/dl mg/dL (Negative) 12/05/20 06:20 Urine Glucose (UA) Neg mg/dL (Negative) 12/05/20 06:20 Urine Ketones Neg mg/dL (Negative) 12/05/20 06:20 Urine Blood Neg (Negative) 12/05/20 06:20 Urine Nitrite Neg (Negative) 12/05/20 06:20 Urine Bilirubin Neg (Negative) 12/05/20 06:20 Urine Urobilinogen 4.0 mg/dL (<2.0) 12/05/20 06:20 Ur Leukocyte Esterase Sm (Negative) 12/05/20 06:20 Urine WBC (Auto) 13.0 /HPF (0.0-6.0) H 12/05/20 06:20 Urine RBC (Auto) 2.0 /HPF (0.0-6.0) 12/05/20 06:20 U Epithel Cells (Auto) 2.0 /HPF (0-13.0) 12/05/20 06:20 Urine Bacteria (Auto) 1+ /HPF (Negative) 12/05/20 06:20 Urine Mucus Few /HPF 12/05/20 06:20 Urine Osmolality 610 Mosm/kg 11/29/20 11:09 Urine Opiates Screen Negative 11/11/20 20:27 Urine Methadone Screen Negative 11/11/20 20:27 Ur Barbiturates Screen Positive 11/11/20 20:27 Ur Phencyclidine Scrn Negative 11/11/20 20:27 Ur Amphetamines Screen Negative 11/11/20 20:27 Phenobarbital 4.3 ug/mL (15.0-40.0) L 11/12/20 08:47 U Benzodiazepines Scrn Negative 11/11/20 20:27 Urine Cocaine Screen Negative 11/11/20 20:27 U Marijuana (THC) Screen Negative 11/11/20 20:27 Drugs of Abuse Note Disclamer 11/11/20 20:27 Plasma/Serum Alcohol < 0.01 % (0-0.07) 11/11/20 09:02 Coronavirus (PCR) Negative (Negative) 12/13/20 Unknown [place]/IV: Voiding Method Condom Catheter Active Medications - Current Medications Current Medications: Generic Name Dose Route Start Last Admin Trade Name Freq PRN Reason Stop Dose Admin Acetaminophen 650 mg 11/11/20 22:58 12/13/20 21:24 Acetaminophen 325 Mg Tab PO 650 mg Q4H PRN Administration Pain MILD(1-3)/Fever >100.5/BAR Lipase/Protease/Amylase 1 each 11/12/20 12:00 Lipase 10,500/Protease 25,000/Amylase 43,750 (Units) Cap FEEDTUBE PRN PRN For Clogged Feeding Tube Enoxaparin Sodium 40 mg 11/12/20 22:00 12/13/20 21:24 Enoxaparin 40 Mg/0.4 Ml Inj SUB-Q 40 mg QDAY@2200 KIRK Administration Protocol Folic Acid 1 mg 11/16/20 10:00 12/13/20 10:45 Folic Acid 1 Mg Tab PO 1 mg DAILY KIRK Administration Hydralazine HCl 10 mg 11/12/20 10:30 12/12/20 21:49 Hydralazine 20 Mg/1 Ml Inj IV 10 mg Q4H PRN Administration Hypertension Hydrophilic Ointment 1 applic 11/11/20 09:14 Lip Therapy Vaseline TP Q2HR PRN Dry Lips Insulin Human Regular 0 units 11/12/20 18:00 12/14/20 06:07 Insulin Regular, Human 100 Units/1 Ml SUB-Q Not Given Q6H [facility] Protocol Lansoprazole 30 mg 11/24/20 10:00 12/13/20 10:45 Lansoprazole 30 Mg Solutab FEEDTUBE 30 mg QDAY KIRK Administration Levetiracetam 1,000 mg 11/24/20 10:00 12/13/20 21:24 Levetiracetam 500 Mg/5 Ml Oral Liqd FEEDTUBE 1,000 mg BID KIRK Administration Multi-Ingred Cream/Lotion/Oil/Oint 1 applic 11/11/20 09:14 Mineral Oil/Petrolatum, White Ophth Oint 3.5 Gm OU Q4HR PRN Dry Eye(s) Multivitamins 1 each 12/12/20 10:00 12/13/20 10:45 Multivitamins ,Therapeutic Tab PO 1 each DAILY KIRK Administration Naloxone HCl 2 mg 11/11/20 08:33 Naloxone 0.4 Mg/1 Ml Inj IV Q2MIN PRN Res Rate </= 8 or 02 SAT < 92% Phenobarbital 15 mg 11/11/20 23:45 12/13/20 21:26 Phenobarbital 15 Mg Tab PO 15 mg BID KIRK Administration Simple Syrup 15 ml 11/12/20 12:00 12/08/20 07:15 Simple Syrup 15 Ml FEEDTUBE 15 ml PRN PRN Administration Hypoglycemia Simple Syrup 30 ml 11/12/20 12:00 Simple Syrup 15 Ml FEEDTUBE PRN PRN Hypoglycemia Sodium Bicarbonate 325 mg 11/12/20 12:00 Sodium Bicarbonate 325 Mg Tab FEEDTUBE PRN PRN For Clogged Feeding Tube Sodium Chloride 10 ml 11/11/20 23:00 12/13/20 21:25 Sodium Chloride 0.9% 10 Ml Flush Syringe IV 10 ml BID KIRK Administration Sodium Chloride 10 ml 11/11/20 22:58 Sodium Chloride 0.9% 10 Ml Flush Syringe IV PRN PRN LINE FLUSH Sodium Chloride 2 gm 11/30/20 22:23 12/14/20 08:43 Sodium Chloride 1 Gm Tab PO 2 gm TID KIRK Administration Thiamine HCl 100 mg 11/16/20 10:00 12/13/20 10:45 Thiamine 100 Mg Tab PO 100 mg QDAY KIRK Administration Nutrition/Malnutrition Assess - Dietary Evaluation Nutrition/Malnutrition Findings: Nutrition Notes Start: 11/12/20 08:26 Freq: Status: Active Protocol: Document 12/09/20 11:30 (Rec: 12/09/20 11:33 [email or web address]) Nutrition Notes Initial or Follow up Brief Note Current Diagnosis Respiratory Failure,Stroke Other Pertinent Diagnosis Seizures, Neurogenic Dysphagia Current Diet TF - Jevity 1.2 at 60ml/hr Labs/Tests Na 131 Cr 0.4 Pertinent Medications NaCl 2 grams Height 5 ft 9 in Weight 61 kg [place] Body Weight (kg) 72.72 BMI 19.8 Weight Status Underweight Subjective/Other Information FU for tolerance. Pt tolerating TF at goal rate. Percent of energy/protein needs met: 100% energy/pro Burn Absent Trauma Absent GI Symptoms None Difficulty In Swallowing Current % PO Negligible Minimum of two criteria No Interpretation of Weight Loss (severe) >5% in 1 month #2 Nutrition Diagnosis Inadequate energy intake Diagnosis Progress(for reassessment Continues documentation) #1 Nutrition Diagnosis Inadequate oral intake Diagnosis Progress(for reassessment Continues documentation) Is patient on ventilator? No Is Patient Ambulatory and/or Out of Bed No REE-([place]-St. Jeor-confined to bed) [phone] Calculation [facility] Additional Notes Pro needs 1.2-1.5g/k-88g/ day Fluid needs 1ml/kcal Nutrition Intervention Change Diet Order: TF Nutrition Support: Jevity 1.2 at 60 ml/hr Flush 50 mL q4h Kcal 1,728 Protein (gm) 80 Fluid (mL) 1,162 Goal #1 Meet at least 75% of estimated energy and protein needs via TF Goal #2 weight stability/increase Anticipated Discharge Needs: TF Jevity 1.2 at 60 ml/hr Follow-Up By: 12/16/20 Additional Comments FU for stable TF
[2020-12-14] MEDS: levETIRAcetam 500 MG/5 ML ORAL LIQD FEEDTUBE SCH ×2 (09:09→22:15)
[2020-12-14] MEDS: FOLIC ACID 1 MG TAB PO SCH (09:10)
[2020-12-14] MEDS: LANSOPRAZOLE 30 MG SOLUTAB FEEDTUBE SCH (09:10)
[2020-12-14] MEDS: PHENobarbital 15 MG TAB PO SCH ×2 (09:10→22:15)
[2020-12-14] MEDS: MULTIVITAMINS ,THERAPEUTIC TAB PO SCH (09:10)
[2020-12-14] MEDS: THIAMINE 100 MG TAB PO SCH (09:11)
[2020-12-14] MEDS: ENOXAPARIN 40 MG/0.4 ML INJ SUB-Q SCH (22:14)
[2020-12-15] MEDS: INSULIN REGULAR, HUMAN 100 UNITS/1 ML SUB-Q SCH ×4 (00:03→18:32)
[2020-12-15 06:06] LABS: Blood Urea Nitrogen 23 mg/dL (9-20); Calcium 8.4 mg/dL (8.4-10.2); Hemolysis Index 2
[2020-12-15 06:07] LABS: BUN/Creatinine Ratio 46
[2020-12-15] MEDS: MULTIVITAMINS ,THERAPEUTIC TAB PO SCH (09:32)
[2020-12-15] MEDS: FOLIC ACID 1 MG TAB PO SCH (09:32)
[2020-12-15] MEDS: SODIUM CHLORIDE 1 GM TAB PO SCH ×3 (09:32→20:15)
[2020-12-15] MEDS: levETIRAcetam 500 MG/5 ML ORAL LIQD FEEDTUBE SCH ×2 (09:32→22:43)
[2020-12-15] MEDS: PHENobarbital 15 MG TAB PO SCH ×2 (09:32→22:43)
[2020-12-15] MEDS: LANSOPRAZOLE 30 MG SOLUTAB FEEDTUBE SCH (09:32)
[2020-12-15] MEDS: THIAMINE 100 MG TAB PO SCH (09:32)
--- NOTE | 2020-12-15 18:09 | Progress Note ---
Assessment and Plan Assessment and plan: COVID-19 test negative x 2 [ 11/12/2020, 11/23/2020] --Acute hypoxic respiratory failure requiring intubation 11/11/2020 /extubated 11/17/2020 Reintubated 11/18/2020/extubated 11/19/2020 Patient is saturating 97% on room air today --Acute toxic metabolic encephalopathy Multifactorial, due to seizures, SIRS, hyponatremia, abnormal thyroid functions Unknown baseline, treat the underlying cause,Has no ongoing infective process CT head ,MRI brain is negative, Continue supportive care --History of seizure disorder; no new episodes of seizure Seizure precautions ,continue antiepileptic medications ,cannot drive CT head and brain MRI showed no acute etiology for seizure --SIRS; Etiology unknown-urinalysis negative, chest x-ray also negative COVID-19 test negative, supportive care antibiotics DC'd --Needs ENT as outpatient for evaluation of upper airway. He has no carcinoma as written in previous notes Needs further evaluation of liver lesion with MRI as outpatient Also needs to follow up with pulmonary in the office --Dysphagia; s/p PEG placement, continue PEG care PEG feeds per protocol, aspiration precautions --Hyponatremia; Sodium today 129, continue replacement therapy Closely monitor electrolytes --Abnormal low TSH; Free T4 wnl -- Hypokalemia; No resolved --DVT prophylaxis-SCDs, Lovenox --GI prophylaxis-PPIs --Full CODE STATUS; Closely monitor the patient and adjust management as needed Patient is medically stable for discharge to hospice/SNF Case management processing DC planning 12/02. His sodium has improved. Awaiting placement. Has no family. Patient is a [place] of [place]. He will need ENT evaluation with laryngoscopy at discharge. 12/03; potassium sodium continues to be low, continue current management nephrology following, awaiting placement 12/04: Awaiting placement. No issues noted overnight, Hypokalemia resolved. Monitor for aspiration precautions. Continue current management with nephrology 12/05: Overall poor prognosis considering his overall medical condition. He still very lethargic very drowsy and somnolent. Urinalysis yesterday reveals urinary tract infection. Will start patient on empiric antibiotics while awaiting cultures. Strongly recommend that hospice should be considered for this patient 12/06: Unfortunately remains chronically ill. I did discuss with Mr. Appiah the patient care provider. I have also advised him of his current condition and that this patient will benefit from hospice or at the very least palliative care. No clinical improvement patient opens his eyes on noxious stimuli but no other movement. Continue wound prevention measures. 12/07/2020; pending placement, possible hospice Plan of care reviewed with the patient's nurse and case management 12/08/2020; pending placement 12/09/2020; awaiting placement, possible hospice house DC planning per case management 12/10/20; awaiting placement, medically stable 12/10/2020; pending placement 12/11/20; patient is medically stable, tolerating tube feeding, alert and awake No new changes, awaiting placement 12/12/2020; patient feels better, tolerating tube feeds, minimally communicative, awaiting placement 12/13/2020; patient is stable, awaiting placement DC planning per case management 12/14/2020; pending placement 12/15/2020; patient medically stable, social issue, pending placement History Interval history: I have seen and examined the patient at the bedside Patient's chart and medications reviewed Patient feels better no new complaints Vital signs noted Hospitalist Physical - Constitutional Vitals: Temp Pulse Resp BP Pulse Ox 99.7 F H 85 20 114/67 95 12/15/20 17:05 12/15/20 17:05 12/15/20 17:05 12/15/20 17:05 12/15/20 17:05 General appearance: Present: no acute distress, cachectic, disheveled, other (Noncommunicative) - EENT Eyes: Present: PERRL, EOM intact - Neck Neck: Present: supple, normal ROM - Respiratory Respiratory effort: normal Respiratory: bilateral: diminished, negative: rales, rhonchi, wheezing - Cardiovascular Rhythm: regular Heart Sounds: Present: S1 & S2 - Extremities Extremities: no ischemia, No edema - Abdominal General gastrointestinal: soft, non-tender, non-distended, normal bowel sounds, other (PEG in place) - Integumentary Integumentary: Present: clear, warm - Psychiatric Psychiatric: other (Noncommunicative) - Neurologic Neurologic: moves all extremities HEART Score - HEART Score Troponin: Troponin T < 0.010 ng/mL (0.00-0.029) 11/11/20 09:02 Results - Labs CBC & Chem 7: 12/06/20 08:33 12/15/20 05:02 Labs: Laboratory Last Values WBC 12.8 K/mm3 (4.5-11.0) H 12/06/20 08:33 RBC 4.44 M/mm3 (3.65-5.03) 12/06/20 08:33 Hgb 12.5 gm/dl (11.8-15.2) 12/06/20 08:33 Hct 37.2 % (35.5-45.6) 12/06/20 08:33 MCV 84 fl (84-94) 12/06/20 08:33 MCH 28 pg (28-32) 12/06/20 08:33 MCHC 34 % (32-34) 12/06/20 08:33 RDW 15.3 % (13.2-15.2) H 12/06/20 08:33 Plt Count 428 K/mm3 (140-440) 12/06/20 08:33 Lymph % (Auto) 18.3 % (13.4-35.0) 11/26/20 06:23 [place] % (Auto) 9.8 % (0.0-7.3) H 11/26/20 06:23 Eos % (Auto) 1.1 % (0.0-4.3) 11/26/20 06:23 Baso % (Auto) 0.7 % (0.0-1.8) 11/26/20 06:23 Lymph # (Auto) 1.7 K/mm3 (1.2-5.4) 11/26/20 06:23 [place] # (Auto) 0.9 K/mm3 (0.0-0.8) H 11/26/20 06:23 Eos # (Auto) 0.1 K/mm3 (0.0-0.4) 11/26/20 06:23 Baso # (Auto) 0.1 K/mm3 (0.0-0.1) 11/26/20 06:23 Add Manual Diff Complete 11/29/20 05:52 Total Counted 100 11/29/20 05:52 Seg Neutrophils % 70.1 % (40.0-70.0) H 11/26/20 06:23 Seg Neuts % (Manual) 76.0 % (40.0-70.0) H 11/29/20 05:52 Lymphocytes % (Manual) 10.0 % (13.4-35.0) L 11/29/20 05:52 Reactive Lymphs % (Man) 4.0 % 11/27/20 05:50 Monocytes % (Manual) 10.0 % (0.0-7.3) H 11/29/20 05:52 Eosinophils % (Manual) 3.0 % (0.0-4.3) 11/29/20 05:52 Metamyelocytes % 1.0 % 11/29/20 05:52 Nucleated RBC % Not Reportable 11/29/20 05:52 Seg Neutrophils # 9.5 K/mm3 (1.8-7.7) H 11/26/20 06:23 Seg Neutrophils # Man 7.4 K/mm3 (1.8-7.7) 11/29/20 05:52 Band Neutrophils # 0.0 K/mm3 11/29/20 05:52 Lymphocytes # (Manual) 1.0 K/mm3 (1.2-5.4) L 11/29/20 05:52 Abs React Lymphs (Man) 0.0 K/mm3 11/29/20 05:52 Monocytes # (Manual) 1.0 K/mm3 (0.0-0.8) H 11/29/20 05:52 Eosinophils # (Manual) 0.3 K/mm3 (0.0-0.4) 11/29/20 05:52 Basophils # (Manual) 0.0 K/mm3 (0.0-0.1) 11/29/20 05:52 Metamyelocytes # 0.1 K/mm3 11/29/20 05:52 Myelocytes # 0.0 K/mm3 11/29/20 05:52 Promyelocytes # 0.0 K/mm3 11/29/20 05:52 Blast Cells # 0.0 K/mm3 11/29/20 05:52 WBC Morphology Not Reportable 11/29/20 05:52 Hypersegmented Neuts Not Reportable 11/29/20 05:52 Hyposegmented Neuts Not Reportable 11/29/20 05:52 Hypogranular Neuts Not Reportable 11/29/20 05:52 Smudge Cells Not Reportable 11/29/20 05:52 Toxic Granulation Not Reportable 11/29/20 05:52 Toxic Vacuolation Not Reportable 11/29/20 05:52 Dohle Bodies Not Reportable 11/29/20 05:52 Pelger-Huet Anomaly Not Reportable 11/29/20 05:52 Fercho Rods Not Reportable 11/29/20 05:52 Platelet Estimate Consistent w auto 11/29/20 05:52 Clumped Platelets Not Reportable 11/29/20 05:52 Plt Clumps, EDTA Not Reportable 11/29/20 05:52 Large Platelets Not Reportable 11/29/20 05:52 Giant Platelets Not Reportable 11/29/20 05:52 Platelet Satelliting Not Reportable 11/29/20 05:52 Plt Morphology Comment Not Reportable 11/29/20 05:52 RBC Morphology Not Reportable 11/29/20 05:52 Dimorphic RBCs Not Reportable 11/29/20 05:52 Polychromasia Not Reportable 11/29/20 05:52 Hypochromasia Not Reportable 11/29/20 05:52 Poikilocytosis Not Reportable 11/29/20 05:52 Anisocytosis Few 11/29/20 05:52 Microcytosis Not Reportable 11/29/20 05:52 Macrocytosis Not Reportable 11/29/20 05:52 Spherocytes Not Reportable 11/29/20 05:52 Pappenheimer Bodies Not Reportable 11/29/20 05:52 Sickle Cells Not Reportable 11/29/20 05:52 Target Cells Few 11/29/20 05:52 Tear Drop Cells Not Reportable 11/29/20 05:52 Ovalocytes Not Reportable 11/29/20 05:52 Helmet Cells Not Reportable 11/29/20 05:52 [place] Bodies Not Reportable 11/29/20 05:52 [place] Rings Not Reportable 11/29/20 05:52 Joni Cells Not Reportable 11/29/20 05:52 Bite Cells Not Reportable 11/29/20 05:52 Crenated Cell Not Reportable 11/29/20 05:52 Elliptocytes Not Reportable 11/29/20 05:52 Acanthocytes (Spur) Not Reportable 11/29/20 05:52 Rouleaux Not Reportable 11/29/20 05:52 Hemoglobin C Crystals Not Reportable 11/29/20 05:52 Schistocytes Not Reportable 11/29/20 05:52 Malaria parasites Not Reportable 11/29/20 05:52 Jones Bodies Not Reportable 11/29/20 05:52 Hem Pathologist Commnt No 11/29/20 05:52 PT 11.5 Sec. (12.2-14.9) L 11/11/20 09:02 INR 0.86 (0.87-1.13) L 11/11/20 09:02 APTT 25.5 Sec. (24.2-36.6) 11/11/20 09:02 Thrombin Time 17.0 Sec. (15.1-19.6) 11/11/20 09:02 ABG pH 7.499 (7.320-7.450) H 11/17/20 11:40 POC ABG pCO2 36.3 mmHg (32.0-48.0) 11/17/20 11:40 ABG pCO2 33.9 mm Hg 11/11/20 10:45 POC ABG pO2 140.8 mmHg (83-108) H 11/17/20 11:40 ABG pO2 222.2 mm Hg (80.0-90.0) H 11/11/20 10:45 POC ABG HCO3 27.6 11/17/20 11:40 ABG HCO3 24.9 mmol/L (20.0-26.0) 11/11/20 10:45 ABG O2 Saturation 98.1 (0-100) 11/17/20 11:40 ABG O2 Content 19.4 (0.0-44) 11/11/20 10:45 POC ABG Base Excess 4.4 11/17/20 11:40 ABG Base Excess 1.9 mmol/L (-2.0-3.0) 11/11/20 10:45 ABG Hemoglobin 11.8 (12.0-17.5) L 11/17/20 11:40 ABG Oxyhemoglobin 97.4 (94-98) 11/17/20 11:40 ABG Carboxyhemoglobin 0.6 % (0.0-5.0) 11/11/20 10:45 ABG Methemoglobin 0.3 (0.0-1.5) 11/17/20 11:40 ABG Sodium 135.1 mmol/L (136.0-145.0) L 11/17/20 11:40 ABG Potassium 4.2 mmol/L (3.40-4.50) 11/17/20 11:40 ABG Chloride 102.0 mmol/L (98-107) 11/17/20 11:40 ABG Glucose 110 mg/dL (65-95) H 11/17/20 11:40 Oxyhemoglobin 98.5 % (95.0-99.0) 11/11/20 10:45 Carboxyhemoglobin 0.4 (0.5-1.5) L 11/17/20 11:40 FiO2 21 % 11/11/20 10:45 FiO2 % 30 11/17/20 11:40 Sodium 131 mmol/L (137-145) L 12/15/20 05:02 Potassium 4.1 mmol/L (3.6-5.0) 12/15/20 05:02 Chloride 94.8 mmol/L (98-107) L 12/15/20 05:02 Carbon Dioxide 27 mmol/L (22-30) 12/15/20 05:02 Anion Gap 13 mmol/L 12/15/20 05:02 BUN 23 mg/dL (9-20) H 12/15/20 05:02 Creatinine 0.5 mg/dL (0.8-1.3) L 12/15/20 05:02 Estimated GFR > 60 ml/min 12/15/20 05:02 BUN/Creatinine Ratio 46 % 12/15/20 05:02 Glucose 134 mg/dL (75-100) H 12/15/20 05:02 POC Glucose 108 mg/dL (70-105) H 12/15/20 11:15 Hemoglobin A1c 5.4 % (4-6) 11/12/20 07:26 Osmolality 274 Mosm/kg 11/29/20 13:08 Uric Acid 1.7 mg/dL (3.5-7.6) L 11/29/20 13:08 Calcium 8.4 mg/dL (8.4-10.2) 12/15/20 05:02 Magnesium 2.00 mg/dL (1.7-2.3) 11/11/20 09:02 Total Bilirubin 0.40 mg/dL (0.1-1.2) 11/29/20 05:52 AST 42 units/L (5-40) H 11/29/20 05:52 ALT 30 units/L (7-56) 11/29/20 05:52 Alkaline Phosphatase 156 units/L (35-129) H 11/29/20 05:52 Ammonia 29.0 umol/L (25-60) 11/12/20 08:47 Total Creatine Kinase 169 units/L (55-170) 11/11/20 09:02 CK-MB (CK-2) 6.6 ng/mL (0.0-4.0) H 11/11/20 09:02 CK-MB (CK-2) Rel Index 3.9 (0-4) 11/11/20 09:02 Troponin T < 0.010 ng/mL (0.00-0.029) 11/11/20 09:02 Total Protein 7.8 g/dL (6.3-8.2) 11/29/20 05:52 Albumin 3.2 g/dL (3.9-5) L 11/29/20 05:52 Albumin/Globulin Ratio 0.7 % 11/29/20 05:52 TSH 5.610 mlU/mL (0.270-4.200) H 11/29/20 05:52 Free T4 1.24 ng/dL (0.76-1.46) 11/29/20 10:31 Total Cortisol 25.5 mcg/dL () 11/29/20 05:52 Arterial Blood Glucose 110 mg/dL (65-95) H 11/17/20 11:40 Arterial Blood Ionized Calcium 4.9 mg/dL (4.6-5.3) 11/17/20 11:40 Urine Color Jennifer (Yellow) 12/05/20 06:20 Urine Turbidity Slightly-cloudy (Clear) 12/05/20 06:20 Urine pH 7.0 (5.0-7.0) 12/05/20 06:20 Ur Specific [place] 1.025 (1.003-1.030) 12/05/20 06:20 Urine Protein 30 mg/dl mg/dL (Negative) 12/05/20 06:20 Urine Glucose (UA) Neg mg/dL (Negative) 12/05/20 06:20 Urine Ketones Neg mg/dL (Negative) 12/05/20 06:20 Urine Blood Neg (Negative) 12/05/20 06:20 Urine Nitrite Neg (Negative) 12/05/20 06:20 Urine Bilirubin Neg (Negative) 12/05/20 06:20 Urine Urobilinogen 4.0 mg/dL (<2.0) 12/05/20 06:20 Ur Leukocyte Esterase Sm (Negative) 12/05/20 06:20 Urine WBC (Auto) 13.0 /HPF (0.0-6.0) H 12/05/20 06:20 Urine RBC (Auto) 2.0 /HPF (0.0-6.0) 12/05/20 06:20 U Epithel Cells (Auto) 2.0 /HPF (0-13.0) 12/05/20 06:20 Urine Bacteria (Auto) 1+ /HPF (Negative) 12/05/20 06:20 Urine Mucus Few /HPF 12/05/20 06:20 Urine Osmolality 610 Mosm/kg 11/29/20 11:09 Urine Opiates Screen Negative 11/11/20 20:27 Urine Methadone Screen Negative 11/11/20 20:27 Ur Barbiturates Screen Positive 11/11/20 20:27 Ur Phencyclidine Scrn Negative 11/11/20 20:27 Ur Amphetamines Screen Negative 11/11/20 20:27 Phenobarbital 4.3 ug/mL (15.0-40.0) L 11/12/20 08:47 U Benzodiazepines Scrn Negative 11/11/20 20:27 Urine Cocaine Screen Negative 11/11/20 20:27 U Marijuana (THC) Screen Negative 11/11/20 20:27 Drugs of Abuse Note Disclamer 11/11/20 20:27 Plasma/Serum Alcohol < 0.01 % (0-0.07) 11/11/20 09:02 Coronavirus (PCR) Negative (Negative) 12/13/20 Unknown [place]/IV: Voiding Method Condom Catheter Active Medications - Current Medications Current Medications: Generic Name Dose Route Start Last Admin Trade Name Freq PRN Reason Stop Dose Admin Acetaminophen 650 mg 11/11/20 22:58 12/13/20 21:24 Acetaminophen 325 Mg Tab PO 650 mg Q4H PRN Administration Pain MILD(1-3)/Fever >100.5/BAR Lipase/Protease/Amylase 1 each 11/12/20 12:00 Lipase 10,500/Protease 25,000/Amylase 43,750 (Units) Dr Rangel FEEDTUBE PRN PRN For Clogged Feeding Tube Enoxaparin Sodium 40 mg 11/12/20 22:00 12/14/20 22:14 Enoxaparin 40 Mg/0.4 Ml Inj SUB-Q 40 mg QDAY@2200 KIRK Administration Protocol Folic Acid 1 mg 11/16/20 10:00 12/15/20 09:32 Folic Acid 1 Mg Tab PO 1 mg DAILY KIRK Administration Hydralazine HCl 10 mg 11/12/20 10:30 12/12/20 21:49 Hydralazine 20 Mg/1 Ml Inj IV 10 mg Q4H PRN Administration Hypertension Hydrophilic Ointment 1 applic 11/11/20 09:14 Lip Therapy Vaseline TP Q2HR PRN Dry Lips Insulin Human Regular 0 units 11/12/20 18:00 12/15/20 12:58 Insulin Regular, Human 100 Units/1 Ml SUB-Q Not Given Q6H [facility] Protocol Lansoprazole 30 mg 11/24/20 10:00 12/15/20 09:32 Lansoprazole 30 Mg Solutab FEEDTUBE 30 mg QDAY KIRK Administration Levetiracetam 1,000 mg 11/24/20 10:00 12/15/20 09:32 Levetiracetam 500 Mg/5 Ml Oral Liqd FEEDTUBE 1,000 mg BID KIRK Administration Multi-Ingred Cream/Lotion/Oil/Oint 1 applic 11/11/20 09:14 Mineral Oil/Petrolatum, White Ophth Oint 3.5 Gm OU Q4HR PRN Dry Eye(s) Multivitamins 1 each 12/12/20 10:00 12/15/20 09:32 Multivitamins ,Therapeutic Tab PO 1 each DAILY KIRK Administration Naloxone HCl 2 mg 11/11/20 08:33 Naloxone 0.4 Mg/1 Ml Inj IV Q2MIN PRN Res Rate </= 8 or 02 SAT < 92% Phenobarbital 15 mg 11/11/20 23:45 12/15/20 09:32 Phenobarbital 15 Mg Tab PO 15 mg BID KIRK Administration Simple Syrup 15 ml 11/12/20 12:00 12/08/20 07:15 Simple Syrup 15 Ml FEEDTUBE 15 ml PRN PRN Administration Hypoglycemia Simple Syrup 30 ml 11/12/20 12:00 Simple Syrup 15 Ml FEEDTUBE PRN PRN Hypoglycemia Sodium Bicarbonate 325 mg 11/12/20 12:00 Sodium Bicarbonate 325 Mg Tab FEEDTUBE PRN PRN For Clogged Feeding Tube Sodium Chloride 10 ml 11/11/20 23:00 12/15/20 09:32 Sodium Chloride 0.9% 10 Ml Flush Syringe IV 10 ml BID KIRK Administration Sodium Chloride 10 ml 11/11/20 22:58 Sodium Chloride 0.9% 10 Ml Flush Syringe IV PRN PRN LINE FLUSH Sodium Chloride 2 gm 11/30/20 22:23 12/15/20 15:53 Sodium Chloride 1 Gm Tab PO 2 gm TID KIRK Administration Thiamine HCl 100 mg 11/16/20 10:00 12/15/20 09:32 Thiamine 100 Mg Tab PO 100 mg QDAY KIRK Administration Nutrition/Malnutrition Assess - Dietary Evaluation Nutrition/Malnutrition Findings: Nutrition Notes Start: 11/12/20 08:26 Freq: Status: Active Protocol: Document 12/09/20 11:30 (Rec: 12/09/20 11:33 [id number]) Nutrition Notes Initial or Follow up Brief Note Current Diagnosis Respiratory Failure,Stroke Other Pertinent Diagnosis Seizures, Neurogenic Dysphagia Current Diet TF - Jevity 1.2 at 60ml/hr Labs/Tests Na 131 Cr 0.4 Pertinent Medications NaCl 2 grams Height 5 ft 9 in Weight 61 kg [place] Body Weight (kg) 72.72 BMI 19.8 Weight Status Underweight Subjective/Other Information FU for tolerance. Pt tolerating TF at goal rate. Percent of energy/protein needs met: 100% energy/pro Burn Absent Trauma Absent GI Symptoms None Difficulty In Swallowing Current % PO Negligible Minimum of two criteria No Interpretation of Weight Loss (severe) >5% in 1 month #2 Nutrition Diagnosis Inadequate energy intake Diagnosis Progress(for reassessment Continues documentation) #1 Nutrition Diagnosis Inadequate oral intake Diagnosis Progress(for reassessment Continues documentation) Is patient on ventilator? No Is Patient Ambulatory and/or Out of Bed No REE-([facility]-confined to bed) [phone] Calculation Used for Recommendations [facility] Additional Notes Pro needs 1.2-1.5g/k-88g/ day Fluid needs 1ml/kcal Nutrition Intervention Change Diet Order: TF Nutrition Support: Jevity 1.2 at 60 ml/hr Flush 50 mL q4h Kcal 1,728 Protein (gm) 80 Fluid (mL) 1,162 Goal #1 Meet at least 75% of estimated energy and protein needs via TF Goal #2 weight stability/increase Anticipated Discharge Needs: TF Jevity 1.2 at 60 ml/hr Follow-Up By: 12/16/20 Additional Comments FU for stable TF
[2020-12-15] MEDS: ENOXAPARIN 40 MG/0.4 ML INJ SUB-Q SCH (22:43)
[2020-12-16] MEDS: INSULIN REGULAR, HUMAN 100 UNITS/1 ML SUB-Q SCH ×4 (01:11→19:03)
--- NOTE | 2020-12-16 09:36 | Progress Note ---
Assessment and Plan Assessment and plan: COVID-19 test negative x 2 [ 11/12/2020, 11/23/2020] --Acute hypoxic respiratory failure requiring intubation 11/11/2020 /extubated 11/17/2020 Reintubated 11/18/2020/extubated 11/19/2020 Patient is saturating 97% on room air today --Acute toxic metabolic encephalopathy Multifactorial, due to seizures, SIRS, hyponatremia, abnormal thyroid functions Unknown baseline, treat the underlying cause,Has no ongoing infective process CT head ,MRI brain is negative, Continue supportive care --History of seizure disorder; no new episodes of seizure Seizure precautions ,continue antiepileptic medications ,cannot drive CT head and brain MRI showed no acute etiology for seizure --SIRS; Etiology unknown-urinalysis negative, chest x-ray also negative COVID-19 test negative, supportive care antibiotics DC'd --Needs ENT as outpatient for evaluation of upper airway. He has no carcinoma as written in previous notes Needs further evaluation of liver lesion with MRI as outpatient Also needs to follow up with pulmonary in the office --Dysphagia; s/p PEG placement, continue PEG care PEG feeds per protocol, aspiration precautions --Hyponatremia; Sodium today 129, continue replacement therapy Closely monitor electrolytes --Abnormal low TSH; Free T4 wnl -- Hypokalemia; No resolved --DVT prophylaxis-SCDs, Lovenox --GI prophylaxis-PPIs --Full CODE STATUS; Closely monitor the patient and adjust management as needed Patient is medically stable for discharge to hospice/SNF Case management processing DC planning Brief history; This is a 60-year-old male with seizure disorder current alcohol and tobacco abuse presents to the hospital on 11/11 after being found unresponsive. On arrival of EMS patient was found to be hypoglycemic and given IV dextrose after which he recovered and refused further care. EMS was called again by family after the patient was found unresponsive and was given Narcan with no change. Patient was noted to have seizure activity and given 7 mg IV Ativan total including 3 from EMS. Patient was loaded with Keppra 2 g and was intubated for airway protection. Patient was found to have metabolic acidosis and hypoglycemia on BMP. Patient was found to be hypothermic and hypertensive in the emergency department. Patient's UDS was positive for barbiturates. Patient was admitted to the hospital service for further work-up with consults to [facility] and neurology. 12/02. His sodium has improved. Awaiting placement. Has no family. Patient is a [place] of the [place]. He will need ENT evaluation with laryngoscopy at discharge. 12/03; potassium sodium continues to be low, continue current management nephrology following, awaiting placement 12/04: Awaiting placement. No issues noted overnight, Hypokalemia resolved. Monitor for aspiration precautions. Continue current management with nephrology 12/05: Overall poor prognosis considering his overall medical condition. He still very lethargic very drowsy and somnolent. Urinalysis yesterday reveals urinary tract infection. Will start patient on empiric antibiotics while awaiting cultures. Strongly recommend that hospice should be considered for this patient 12/06: Unfortunately remains chronically ill. I did discuss with Mr. Appiah the patient care provider. I have also advised him of his current condition and that this patient will benefit from hospice or at the very least palliative care. No clinical improvement patient opens his eyes on noxious stimuli but no other movement. Continue wound prevention measures. 12/07/2020; pending placement, possible hospice Plan of care reviewed with the patient's nurse and case management 12/08/2020; pending placement 12/09/2020; awaiting placement, possible hospice house DC planning per case management 12/10/20; awaiting placement, medically stable 12/10/2020; pending placement 12/11/20; patient is medically stable, tolerating tube feeding, alert and awake No new changes, awaiting placement 12/12/2020; patient feels better, tolerating tube feeds, minimally communicative, awaiting placement 12/13/2020; patient is stable, awaiting placement DC planning per case management 12/14/2020; pending placement 12/15/2020; patient medically stable, social issue, pending placement 12/16/2020; social issues awaiting placement History Interval history: I have seen and examined the patient at the bedside this morning Patient's chart and medications reviewed Patient is noncommunicative ,spontaneous opening eyes Multiple social issues Awaiting placement Vital signs reviewed Hospitalist Physical - Constitutional Vitals: Temp Pulse Resp BP Pulse Ox 99.4 F 87 20 127/76 95 12/16/20 04:12 12/16/20 04:12 12/16/20 04:12 12/16/20 04:12 12/16/20 04:12 General appearance: Present: no acute distress, cachectic, disheveled, other (Noncommunicative) - EENT Eyes: Present: PERRL, EOM intact - Neck Neck: Present: supple, normal ROM - Respiratory Respiratory effort: normal Respiratory: bilateral: diminished, negative: rales, rhonchi, wheezing - Cardiovascular Rhythm: regular Heart Sounds: Present: S1 & S2 - Extremities Extremities: no ischemia, abnormal (Chronic changes) - Abdominal General gastrointestinal: soft, non-tender, non-distended, normal bowel sounds, other (PEG in place functional) - Integumentary Integumentary: Present: clear, warm - Psychiatric Psychiatric: appropriate mood/affect, cooperative - Neurologic Neurologic: CNII-XII intact, moves all extremities HEART Score - HEART Score Troponin: Troponin T < 0.010 ng/mL (0.00-0.029) 11/11/20 09:02 Results - Labs CBC & Chem 7: 12/06/20 08:33 12/15/20 05:02 Labs: Laboratory Last Values WBC 12.8 K/mm3 (4.5-11.0) H 12/06/20 08:33 RBC 4.44 M/mm3 (3.65-5.03) 12/06/20 08:33 Hgb 12.5 gm/dl (11.8-15.2) 12/06/20 08:33 Hct 37.2 % (35.5-45.6) 12/06/20 08:33 MCV 84 fl (84-94) 12/06/20 08:33 MCH 28 pg (28-32) 12/06/20 08:33 MCHC 34 % (32-34) 12/06/20 08:33 RDW 15.3 % (13.2-15.2) H 12/06/20 08:33 Plt Count 428 K/mm3 (140-440) 12/06/20 08:33 Lymph % (Auto) 18.3 % (13.4-35.0) 11/26/20 06:23 [place] % (Auto) 9.8 % (0.0-7.3) H 11/26/20 06:23 Eos % (Auto) 1.1 % (0.0-4.3) 11/26/20 06:23 Baso % (Auto) 0.7 % (0.0-1.8) 11/26/20 06:23 Lymph # (Auto) 1.7 K/mm3 (1.2-5.4) 11/26/20 06:23 [place] # (Auto) 0.9 K/mm3 (0.0-0.8) H 11/26/20 06:23 Eos # (Auto) 0.1 K/mm3 (0.0-0.4) 11/26/20 06:23 Baso # (Auto) 0.1 K/mm3 (0.0-0.1) 11/26/20 06:23 Add Manual Diff Complete 11/29/20 05:52 Total Counted 100 11/29/20 05:52 Seg Neutrophils % 70.1 % (40.0-70.0) H 11/26/20 06:23 Seg Neuts % (Manual) 76.0 % (40.0-70.0) H 11/29/20 05:52 Lymphocytes % (Manual) 10.0 % (13.4-35.0) L 11/29/20 05:52 Reactive Lymphs % (Man) 4.0 % 11/27/20 05:50 Monocytes % (Manual) 10.0 % (0.0-7.3) H 11/29/20 05:52 Eosinophils % (Manual) 3.0 % (0.0-4.3) 11/29/20 05:52 Metamyelocytes % 1.0 % 11/29/20 05:52 Nucleated RBC % Not Reportable 11/29/20 05:52 Seg Neutrophils # 9.5 K/mm3 (1.8-7.7) H 11/26/20 06:23 Seg Neutrophils # Man 7.4 K/mm3 (1.8-7.7) 11/29/20 05:52 Band Neutrophils # 0.0 K/mm3 11/29/20 05:52 Lymphocytes # (Manual) 1.0 K/mm3 (1.2-5.4) L 11/29/20 05:52 Abs React Lymphs (Man) 0.0 K/mm3 11/29/20 05:52 Monocytes # (Manual) 1.0 K/mm3 (0.0-0.8) H 11/29/20 05:52 Eosinophils # (Manual) 0.3 K/mm3 (0.0-0.4) 11/29/20 05:52 Basophils # (Manual) 0.0 K/mm3 (0.0-0.1) 11/29/20 05:52 Metamyelocytes # 0.1 K/mm3 11/29/20 05:52 Myelocytes # 0.0 K/mm3 11/29/20 05:52 Promyelocytes # 0.0 K/mm3 11/29/20 05:52 Blast Cells # 0.0 K/mm3 11/29/20 05:52 WBC Morphology Not Reportable 11/29/20 05:52 Hypersegmented Neuts Not Reportable 11/29/20 05:52 Hyposegmented Neuts Not Reportable 11/29/20 05:52 Hypogranular Neuts Not Reportable 11/29/20 05:52 Smudge Cells Not Reportable 11/29/20 05:52 Toxic Granulation Not Reportable 11/29/20 05:52 Toxic Vacuolation Not Reportable 11/29/20 05:52 Dohle Bodies Not Reportable 11/29/20 05:52 Pelger-Huet Anomaly Not Reportable 11/29/20 05:52 Fercho Rods Not Reportable 11/29/20 05:52 Platelet Estimate Consistent w auto 11/29/20 05:52 Clumped Platelets Not Reportable 11/29/20 05:52 Plt Clumps, EDTA Not Reportable 11/29/20 05:52 Large Platelets Not Reportable 11/29/20 05:52 Giant Platelets Not Reportable 11/29/20 05:52 Platelet Satelliting Not Reportable 11/29/20 05:52 Plt Morphology Comment Not Reportable 11/29/20 05:52 RBC Morphology Not Reportable 11/29/20 05:52 Dimorphic RBCs Not Reportable 11/29/20 05:52 Polychromasia Not Reportable 11/29/20 05:52 Hypochromasia Not Reportable 11/29/20 05:52 Poikilocytosis Not Reportable 11/29/20 05:52 Anisocytosis Few 11/29/20 05:52 Microcytosis Not Reportable 11/29/20 05:52 Macrocytosis Not Reportable 11/29/20 05:52 Spherocytes Not Reportable 11/29/20 05:52 Pappenheimer Bodies Not Reportable 11/29/20 05:52 Sickle Cells Not Reportable 11/29/20 05:52 Target Cells Few 11/29/20 05:52 Tear Drop Cells Not Reportable 11/29/20 05:52 Ovalocytes Not Reportable 11/29/20 05:52 Helmet Cells Not Reportable 11/29/20 05:52 [place] Bodies Not Reportable 11/29/20 05:52 [place] Rings Not Reportable 11/29/20 05:52 [place] Cells Not Reportable 11/29/20 05:52 Bite Cells Not Reportable 11/29/20 05:52 Crenated Cell Not Reportable 11/29/20 05:52 Elliptocytes Not Reportable 11/29/20 05:52 Acanthocytes (Spur) Not Reportable 11/29/20 05:52 Rouleaux Not Reportable 11/29/20 05:52 Hemoglobin C Crystals Not Reportable 11/29/20 05:52 Schistocytes Not Reportable 11/29/20 05:52 Malaria parasites Not Reportable 11/29/20 05:52 Jones Bodies Not Reportable 11/29/20 05:52 Hem Pathologist Commnt No 11/29/20 05:52 PT 11.5 Sec. (12.2-14.9) L 11/11/20 09:02 INR 0.86 (0.87-1.13) L 11/11/20 09:02 APTT 25.5 Sec. (24.2-36.6) 11/11/20 09:02 Thrombin Time 17.0 Sec. (15.1-19.6) 11/11/20 09:02 ABG pH 7.499 (7.320-7.450) H 11/17/20 11:40 POC ABG pCO2 36.3 mmHg (32.0-48.0) 11/17/20 11:40 ABG pCO2 33.9 mm Hg 11/11/20 10:45 POC ABG pO2 140.8 mmHg (83-108) H 11/17/20 11:40 ABG pO2 222.2 mm Hg (80.0-90.0) H 11/11/20 10:45 POC ABG HCO3 27.6 11/17/20 11:40 ABG HCO3 24.9 mmol/L (20.0-26.0) 11/11/20 10:45 ABG O2 Saturation 98.1 (0-100) 11/17/20 11:40 ABG O2 Content 19.4 (0.0-44) 11/11/20 10:45 POC ABG Base Excess 4.4 11/17/20 11:40 ABG Base Excess 1.9 mmol/L (-2.0-3.0) 11/11/20 10:45 ABG Hemoglobin 11.8 (12.0-17.5) L 11/17/20 11:40 ABG Oxyhemoglobin 97.4 (94-98) 11/17/20 11:40 ABG Carboxyhemoglobin 0.6 % (0.0-5.0) 11/11/20 10:45 ABG Methemoglobin 0.3 (0.0-1.5) 11/17/20 11:40 ABG Sodium 135.1 mmol/L (136.0-145.0) L 11/17/20 11:40 ABG Potassium 4.2 mmol/L (3.40-4.50) 11/17/20 11:40 ABG Chloride 102.0 mmol/L (98-107) 11/17/20 11:40 ABG Glucose 110 mg/dL (65-95) H 11/17/20 11:40 Oxyhemoglobin 98.5 % (95.0-99.0) 11/11/20 10:45 Carboxyhemoglobin 0.4 (0.5-1.5) L 11/17/20 11:40 FiO2 21 % 11/11/20 10:45 FiO2 % 30 11/17/20 11:40 Sodium 131 mmol/L (137-145) L 12/15/20 05:02 Potassium 4.1 mmol/L (3.6-5.0) 12/15/20 05:02 Chloride 94.8 mmol/L (98-107) L 12/15/20 05:02 Carbon Dioxide 27 mmol/L (22-30) 12/15/20 05:02 Anion Gap 13 mmol/L 12/15/20 05:02 BUN 23 mg/dL (9-20) H 12/15/20 05:02 Creatinine 0.5 mg/dL (0.8-1.3) L 12/15/20 05:02 Estimated GFR > 60 ml/min 12/15/20 05:02 BUN/Creatinine Ratio 46 % 12/15/20 05:02 Glucose 134 mg/dL (75-100) H 12/15/20 05:02 POC Glucose 124 mg/dL (70-105) H 12/15/20 22:03 Hemoglobin A1c 5.4 % (4-6) 11/12/20 07:26 Osmolality 274 Mosm/kg 11/29/20 13:08 Uric Acid 1.7 mg/dL (3.5-7.6) L 11/29/20 13:08 Calcium 8.4 mg/dL (8.4-10.2) 12/15/20 05:02 Magnesium 2.00 mg/dL (1.7-2.3) 11/11/20 09:02 Total Bilirubin 0.40 mg/dL (0.1-1.2) 11/29/20 05:52 AST 42 units/L (5-40) H 11/29/20 05:52 ALT 30 units/L (7-56) 11/29/20 05:52 Alkaline Phosphatase 156 units/L (35-129) H 11/29/20 05:52 Ammonia 29.0 umol/L (25-60) 11/12/20 08:47 Total Creatine Kinase 169 units/L (55-170) 11/11/20 09:02 CK-MB (CK-2) 6.6 ng/mL (0.0-4.0) H 11/11/20 09:02 CK-MB (CK-2) Rel Index 3.9 (0-4) 11/11/20 09:02 Troponin T < 0.010 ng/mL (0.00-0.029) 11/11/20 09:02 Total Protein 7.8 g/dL (6.3-8.2) 11/29/20 05:52 Albumin 3.2 g/dL (3.9-5) L 11/29/20 05:52 Albumin/Globulin Ratio 0.7 % 11/29/20 05:52 TSH 5.610 mlU/mL (0.270-4.200) H 11/29/20 05:52 Free T4 1.24 ng/dL (0.76-1.46) 11/29/20 10:31 Total Cortisol 25.5 mcg/dL () 11/29/20 05:52 Arterial Blood Glucose 110 mg/dL (65-95) H 11/17/20 11:40 Arterial Blood Ionized Calcium 4.9 mg/dL (4.6-5.3) 11/17/20 11:40 Urine Color [place] (Yellow) 12/05/20 06:20 Urine Turbidity Slightly-cloudy (Clear) 12/05/20 06:20 Urine pH 7.0 (5.0-7.0) 12/05/20 06:20 Ur Specific [place] 1.025 (1.003-1.030) 12/05/20 06:20 Urine Protein 30 mg/dl mg/dL (Negative) 12/05/20 06:20 Urine Glucose (UA) Neg mg/dL (Negative) 12/05/20 06:20 Urine Ketones Neg mg/dL (Negative) 12/05/20 06:20 Urine Blood Neg (Negative) 12/05/20 06:20 Urine Nitrite Neg (Negative) 12/05/20 06:20 Urine Bilirubin Neg (Negative) 12/05/20 06:20 Urine Urobilinogen 4.0 mg/dL (<2.0) 12/05/20 06:20 Ur Leukocyte Esterase Sm (Negative) 12/05/20 06:20 Urine WBC (Auto) 13.0 /HPF (0.0-6.0) H 12/05/20 06:20 Urine RBC (Auto) 2.0 /HPF (0.0-6.0) 12/05/20 06:20 U Epithel Cells (Auto) 2.0 /HPF (0-13.0) 12/05/20 06:20 Urine Bacteria (Auto) 1+ /HPF (Negative) 12/05/20 06:20 Urine Mucus Few /HPF 12/05/20 06:20 Urine Osmolality 610 Mosm/kg 11/29/20 11:09 Urine Opiates Screen Negative 11/11/20 20:27 Urine Methadone Screen Negative 11/11/20 20:27 Ur Barbiturates Screen Positive 11/11/20 20:27 Ur Phencyclidine Scrn Negative 11/11/20 20:27 Ur Amphetamines Screen Negative 11/11/20 20:27 Phenobarbital 4.3 ug/mL (15.0-40.0) L 11/12/20 08:47 U Benzodiazepines Scrn Negative 11/11/20 20:27 Urine Cocaine Screen Negative 11/11/20 20:27 U Marijuana (THC) Screen Negative 11/11/20 20:27 Drugs of Abuse Note Disclamer 11/11/20 20:27 Plasma/Serum Alcohol < 0.01 % (0-0.07) 11/11/20 09:02 Coronavirus (PCR) Negative (Negative) 12/13/20 Unknown [place]/IV: Voiding Method Condom Catheter Active Medications - Current Medications Current Medications: Generic Name Dose Route Start Last Admin Trade Name Freq PRN Reason Stop Dose Admin Acetaminophen 650 mg 11/11/20 22:58 12/13/20 21:24 Acetaminophen 325 Mg Tab PO 650 mg Q4H PRN Administration Pain MILD(1-3)/Fever >100.5/BAR Lipase/Protease/Amylase 1 each 11/12/20 12:00 Lipase 10,500/Protease 25,000/Amylase 43,750 (Units) Dr Rangel FEEDTUBE PRN PRN For Clogged Feeding Tube Enoxaparin Sodium 40 mg 11/12/20 22:00 12/15/20 22:43 Enoxaparin 40 Mg/0.4 Ml Inj SUB-Q 40 mg QDAY@2200 KIRK Administration Protocol Folic Acid 1 mg 11/16/20 10:00 12/15/20 09:32 Folic Acid 1 Mg Tab PO 1 mg DAILY KIRK Administration Hydralazine HCl 10 mg 11/12/20 10:30 12/12/20 21:49 Hydralazine 20 Mg/1 Ml Inj IV 10 mg Q4H PRN Administration Hypertension Hydrophilic Ointment 1 applic 11/11/20 09:14 Lip Therapy Vaseline TP Q2HR PRN Dry Lips Insulin Human Regular 0 units 11/12/20 18:00 12/16/20 06:28 Insulin Regular, Human 100 Units/1 Ml SUB-Q Not Given Q6H PENDING SALE TO [facility] Protocol Lansoprazole 30 mg 11/24/20 10:00 12/15/20 09:32 Lansoprazole 30 Mg Solutab FEEDTUBE 30 mg QDAY KIRK Administration Levetiracetam 1,000 mg 11/24/20 10:00 12/15/20 22:43 Levetiracetam 500 Mg/5 Ml Oral Liqd FEEDTUBE 1,000 mg BID KIRK Administration Multi-Ingred Cream/Lotion/Oil/Oint 1 applic 11/11/20 09:14 Mineral Oil/Petrolatum, White Ophth Oint 3.5 Gm OU Q4HR PRN Dry Eye(s) Multivitamins 1 each 12/12/20 10:00 12/15/20 09:32 Multivitamins ,Therapeutic Tab PO 1 each DAILY KIRK Administration Naloxone HCl 2 mg 11/11/20 08:33 Naloxone 0.4 Mg/1 Ml Inj IV Q2MIN PRN Res Rate </= 8 or 02 SAT < 92% Phenobarbital 15 mg 11/11/20 23:45 12/15/20 22:43 Phenobarbital 15 Mg Tab PO 15 mg BID KIRK Administration Simple Syrup 15 ml 11/12/20 12:00 12/08/20 07:15 Simple Syrup 15 Ml FEEDTUBE 15 ml PRN PRN Administration Hypoglycemia Simple Syrup 30 ml 11/12/20 12:00 Simple Syrup 15 Ml FEEDTUBE PRN PRN Hypoglycemia Sodium Bicarbonate 325 mg 11/12/20 12:00 Sodium Bicarbonate 325 Mg Tab FEEDTUBE PRN PRN For Clogged Feeding Tube Sodium Chloride 10 ml 11/11/20 23:00 12/15/20 22:44 Sodium Chloride 0.9% 10 Ml Flush Syringe IV 10 ml BID KIRK Administration Sodium Chloride 10 ml 11/11/20 22:58 Sodium Chloride 0.9% 10 Ml Flush Syringe IV PRN PRN LINE FLUSH Sodium Chloride 2 gm 11/30/20 22:23 12/15/20 20:15 Sodium Chloride 1 Gm Tab PO 2 gm TID KIRK Administration Thiamine HCl 100 mg 11/16/20 10:00 12/15/20 09:32 Thiamine 100 Mg Tab PO 100 mg QDAY KIRK Administration Nutrition/Malnutrition Assess - Dietary Evaluation Nutrition/Malnutrition Findings: Nutrition Notes Start: 11/12/20 08:26 Freq: Status: Active Protocol: Document 12/09/20 11:30 BRANT (Rec: 12/09/20 11:33 [email or web address]) Nutrition Notes Initial or Follow up Brief Note Current Diagnosis Respiratory Failure,Stroke Other Pertinent Diagnosis Seizures, Neurogenic Dysphagia Current Diet TF - Jevity 1.2 at 60ml/hr Labs/Tests Na 131 Cr 0.4 Pertinent Medications NaCl 2 grams Height 5 ft 9 in Weight 61 kg [place] Body Weight (kg) 72.72 BMI 19.8 Weight Status Underweight Subjective/Other Information FU for tolerance. Pt tolerating TF at goal rate. Percent of energy/protein needs met: 100% energy/pro Burn Absent Trauma Absent GI Symptoms None Difficulty In Swallowing Current % PO Negligible Minimum of two criteria No Interpretation of Weight Loss (severe) >5% in 1 month #2 Nutrition Diagnosis Inadequate energy intake Diagnosis Progress(for reassessment Continues documentation) #1 Nutrition Diagnosis Inadequate oral intake Diagnosis Progress(for reassessment Continues documentation) Is patient on ventilator? No Is Patient Ambulatory and/or Out of Bed No REE-([place]-St. Jeor-confined to bed) [phone] Calculation Used for Recommendations [place] Jeor Additional Notes Pro needs 1.2-1.5g/k-88g/ day Fluid needs 1ml/kcal Nutrition Intervention Change Diet Order: TF Nutrition Support: Jevity 1.2 at 60 ml/hr Flush 50 mL q4h Kcal 1,728 Protein (gm) 80 Fluid (mL) 1,162 Goal #1 Meet at least 75% of estimated energy and protein needs via TF Goal #2 weight stability/increase Anticipated Discharge Needs: TF Jevity 1.2 at 60 ml/hr Follow-Up By: 12/16/20 Additional Comments FU for stable TF
[2020-12-16] MEDS: PHENobarbital 15 MG TAB PO SCH ×2 (10:17→22:57)
[2020-12-16] MEDS: levETIRAcetam 500 MG/5 ML ORAL LIQD FEEDTUBE SCH ×2 (10:17→22:57)
[2020-12-16] MEDS: LANSOPRAZOLE 30 MG SOLUTAB FEEDTUBE SCH (10:17)
[2020-12-16] MEDS: MULTIVITAMINS ,THERAPEUTIC TAB PO SCH (10:17)
[2020-12-16] MEDS: FOLIC ACID 1 MG TAB PO SCH (10:17)
[2020-12-16] MEDS: SODIUM CHLORIDE 1 GM TAB PO SCH ×3 (10:23→20:40)
[2020-12-16] MEDS: THIAMINE 100 MG TAB PO SCH (10:24)
[2020-12-16] MEDS: ENOXAPARIN 40 MG/0.4 ML INJ SUB-Q SCH (22:58)
[2020-12-17] MEDS: INSULIN REGULAR, HUMAN 100 UNITS/1 ML SUB-Q SCH ×4 (06:00→18:00)
[2020-12-17 07:51] LABS: Hematocrit 33.1 % (35.5-45.6); Mean Corpuscular HGB Conc 33 % (32-34); Mean Corpuscular Volume 84 fl (84-94); Platelet Count 469 K/mm3 (140-440); Red Blood Count 3.95 M/mm3 (3.65-5.03); Red Cell Distribution Width 15.3 % (13.2-15.2)
[2020-12-17] MEDS: SODIUM CHLORIDE 1 GM TAB PO SCH ×3 (08:00→20:44)
[2020-12-17 08:13] LABS: Alanine Aminotransferase 51 units/L (7-56); Albumin 2.3 g/dL (3.9-5); Blood Urea Nitrogen 24 mg/dL (9-20); Hemolysis Index 2
[2020-12-17 08:15] LABS: BUN/Creatinine Ratio 48
[2020-12-17 09:39] LABS: Anisocytosis 1+; Band Neutrophils # (Manual) 0.1 K/mm3; Platelet Estimate Consistent w Auto; Total Cells Counted 100
[2020-12-17] MEDS: MULTIVITAMINS ,THERAPEUTIC TAB PO SCH (10:18)
[2020-12-17] MEDS: THIAMINE 100 MG TAB PO SCH (10:18)
[2020-12-17] MEDS: FOLIC ACID 1 MG TAB PO SCH (10:18)
[2020-12-17] MEDS: levETIRAcetam 500 MG/5 ML ORAL LIQD FEEDTUBE SCH ×2 (10:18→21:38)
[2020-12-17] MEDS: LANSOPRAZOLE 30 MG SOLUTAB FEEDTUBE SCH (10:18)
[2020-12-17] MEDS: PHENobarbital 15 MG TAB PO SCH ×2 (10:20→21:38)
--- NOTE | 2020-12-17 18:22 | Progress Note ---
Assessment and Plan - Patient Problems (1) Acute respiratory failure with hypoxia Current Visit: Yes Status: Deleted Plan to address problem: Patient intubated and on vent. Vent management. [employer] consult requested. (2) Acute encephalopathy Current Visit: Yes Status: Deleted Plan to address problem: Possible seizures/sepsis Rule out meningitis which is unlikely given the history of no fever and sudden onset of unresponsiveness Most likely secondary to persistent hypoglycemia IV D5W and D50 W as necessary (3) Seizure disorder Current Visit: Yes Status: Deleted Plan to address problem: Patient initiated on IV Keppra (4) Lactic acidosis Current Visit: No Status: Deleted Plan to address problem: Secondary to seizures No focus of infection Empiric antibiotic started (5) Postictal coma Current Visit: No Status: Deleted Plan to address problem: High possibility Neurology consult requested (6) DVT prophylaxis Current Visit: Yes Status: Deleted Plan to address problem: On heparin and GI prophylaxis Subjective Date of service: 12/17/20 Principal diagnosis: Neurogenic Dysphagia Interval history: Brief history; This is a 60-year-old male with seizure disorder current alcohol and tobacco abuse presents to the hospital on 11/11 after being found unresponsive. On ar rival of EMS patient was found to be hypoglycemic and given IV dextrose after which he recovered and refused further care. EMS was called again by family after the patient was found unresponsive and was given Narcan with no change. Patient was noted to have seizure activity and given 7 mg IV Ativan total including 3 from EMS. Patient was loaded with Keppra 2 g and was intubated for airway protection. Patient was found to have metabolic acidosis and hypoglycemia on BMP. Patient was found to be hypothermic and hypertensive in the emergency department. Patient's UDS was positive for barbiturates. Patient was admitted to the hospital service for further work-up with consults to [facility] and neurology. 12/02. His sodium has improved. Awaiting placement. Has no family. Patient is a [place]. He will need ENT evaluation with laryngoscopy at discharge. 12/03; potassium sodium continues to be low, continue current management nephrology following, awaiting placement 12/04: Awaiting placement. No issues noted overnight, Hypokalemia resolved. Monitor for aspiration precautions. Continue current management with nephrology 12/05: Overall poor prognosis considering his overall medical condition. He still very lethargic very drowsy and somnolent. Urinalysis yesterday reveals urinary tract infection. Will start patient on empiric antibiotics while awaiting cultures. Strongly recommend that hospice should be considered for this patient 12/06: Unfortunately remains chronically ill. I did discuss with Mr. Appiah the patient care provider. I have also advised him of his current condition and that this patient will benefit from hospice or at the very least palliative care. No clinical improvement patient opens his eyes on noxious stimuli but no other movement. Continue wound prevention measures. 12/07/2020; pending placement, possible hospice Plan of care reviewed with the patient's nurse and case management 12/08/2020; pending placement 12/09/2020; awaiting placement, possible hospice house DC planning per case management 12/10/20; awaiting placement, medically stable 12/10/2020; pending placement 12/11/20; patient is medically stable, tolerating tube feeding, alert and awake No new changes, awaiting placement 12/12/2020; patient feels better, tolerating tube feeds, minimally communicative, awaiting placement 12/13/2020; patient is stable, awaiting placement DC planning per case management 12/14/2020; pending placement 12/15/2020; patient medically stable, social issue, pending placement 12/16/2020; social issues awaiting placement 12/17/2020 Awaiting placement History Interval history: I have seen and examined the patient at the bedside this morning Patient's chart and medications reviewed Patient is noncommunicative ,spontaneous opening eyes Multiple social issues Awaiting placement Vital signs reviewed Objective - Constitutional General appearance: Present: no acute distress, well-nourished - EENT Eyes: PERRL, EOM intact ENT: hearing intact, clear oral mucosa Ears: bilateral: normal - Neck Neck: supple, normal ROM - Respiratory Respiratory effort: normal Respiratory: bilateral: CTA - Breasts Breasts: normal - Cardiovascular Heart rate: 78 Rhythm: regular Heart Sounds: Present: S1 & S2. Absent: gallop, rub Extremities: pulses intact, No edema, normal color, Full ROM - Gastrointestinal General gastrointestinal: Present: soft, non-tender, non-distended, normal bowel sounds - Genitourinary Male genitourinary: normal - Integumentary Integumentary: clear, warm, dry - Musculoskeletal Musculoskeletal: 1, strength equal bilaterally - Neurologic Neurologic: moves all extremities - Psychiatric Psychiatric: depressed, other (Lethargic) - Labs CBC & Chem 7: 12/17/20 06:13 12/17/20 06:13 Labs: Abnormal lab results 12/17/20 12/17/20 12/17/20 Range/Units 06:13 06:13 11:22 WBC 12.7 H (4.5-11.0) K/mm3 Hgb 11.0 L (11.8-15.2) gm/dl Hct 33.1 L (35.5-45.6) % RDW 15.3 H (13.2-15.2) % Plt Count 469 H (140-440) K/mm3 Seg Neuts % (Manual) 79.0 H (40.0-70.0) % Lymphocytes % (Manual) 9.0 L (13.4-35.0) % Seg Neutrophils # Man 10.0 H (1.8-7.7) K/mm3 Lymphocytes # (Manual) 1.1 L (1.2-5.4) K/mm3 Monocytes # (Manual) 0.9 H (0.0-0.8) K/mm3 Sodium 134 L (137-145) mmol/L Chloride 97.3 L (98-107) mmol/L BUN 24 H (9-20) mg/dL Creatinine 0.5 L (0.8-1.3) mg/dL Glucose 134 H (75-100) mg/dL POC Glucose 125 H (70-105) mg/dL Magnesium 1.60 L (1.7-2.3) mg/dL AST 63 H (5-40) units/L Alkaline Phosphatase 235 H (35-129) units/L Albumin 2.3 L (3.9-5) g/dL HEART Score - HEART Score Troponin: Troponin T < 0.010 ng/mL (0.00-0.029) 11/11/20 09:02
[2020-12-17] MEDS: ENOXAPARIN 40 MG/0.4 ML INJ SUB-Q SCH (21:38)
[2020-12-17] MEDS ORDERED: LIP THERAPY VASELINE TP PRN (23:06)
[2020-12-18] MEDS: INSULIN REGULAR, HUMAN 100 UNITS/1 ML SUB-Q SCH ×4 (00:27→18:31)
[2020-12-18] MEDS: LIP THERAPY VASELINE TP PRN ×2 (07:12→21:03)
[2020-12-18] MEDS: SODIUM CHLORIDE 1 GM TAB PO SCH ×3 (09:27→20:50)
[2020-12-18] MEDS: MULTIVITAMINS ,THERAPEUTIC TAB PO SCH (12:30)
[2020-12-18] MEDS: PHENobarbital 15 MG TAB PO SCH ×2 (12:30→21:01)
[2020-12-18] MEDS: LANSOPRAZOLE 30 MG SOLUTAB FEEDTUBE SCH (12:30)
[2020-12-18] MEDS: levETIRAcetam 500 MG/5 ML ORAL LIQD FEEDTUBE SCH ×2 (12:30→21:01)
[2020-12-18] MEDS: FOLIC ACID 1 MG TAB PO SCH (12:31)
[2020-12-18] MEDS: THIAMINE 100 MG TAB PO SCH (12:34)
--- NOTE | 2020-12-18 15:43 | Progress Note ---
Assessment and Plan Assessment and Plan Assessment and plan: COVID-19 test negative x 2 [ 11/12/2020, 11/23/2020] --Acute hypoxic respiratory failure requiring intubation 11/11/2020 /extubated 11/17/2020 Reintubated 11/18/2020/extubated 11/19/2020 Patient is saturating 97% on room air today --Acute toxic metabolic encephalopathy Multifactorial, due to seizures, SIRS, hyponatremia, abnormal thyroid functions Unknown baseline, treat the underlying cause,Has no ongoing infective process CT head ,MRI brain is negative, Continue supportive care --History of seizure disorder; no new episodes of seizure Seizure precautions ,continue antiepileptic medications ,cannot drive CT head and brain MRI showed no acute etiology for seizure --SIRS; Etiology unknown-urinalysis negative, chest x-ray also negative COVID-19 test negative, supportive care antibiotics DC'd --Needs ENT as outpatient for evaluation of upper airway. He has no carcinoma as written in previous notes Needs further evaluation of liver lesion with MRI as outpatient Also needs to follow up with pulmonary in the office --Dysphagia; s/p PEG placement, continue PEG care PEG feeds per protocol, aspiration precautions --Hyponatremia; Sodium today 129, continue replacement therapy Closely monitor electrolytes --Abnormal low TSH; Free T4 wnl -- Hypokalemia; No resolved --DVT prophylaxis-SCDs, Lovenox --GI prophylaxis-PPIs --Full CODE STATUS; Closely monitor the patient and adjust management as needed Patient is medically stable for discharge to hospice/SNF Case management processing DC planning Subjective Date of service: 12/18/20 Principal diagnosis: Neurogenic Dysphagia Interval history: Brief history; This is a 60-year-old male with seizure disorder current alcohol and tobacco abuse presents to the hospital on 11/11 after being found unresponsive. On arrival of EMS patient was found to be hypoglycemic and given IV dextrose after which he recovered and refused further care. EMS was called again by family after the patient was found unresponsive and was given Narcan with no change. Patient was noted to have seizure activity and given 7 mg IV Ativan total including 3 from EMS. Patient was loaded with Keppra 2 g and was intubated for airway protection. Patient was found to have metabolic acidosis and hypogly cemia on BMP. Patient was found to be hypothermic and hypertensive in the emergency department. Patient's UDS was positive for barbiturates. Patient was admitted to the hospital service for further work-up with consults to [facility] and neurology. 12/02. His sodium has improved. Awaiting placement. Has no family. [place] He will need ENT evaluation with laryngoscopy at discharge. 12/03; potassium sodium continues to be low, continue current management nephrology following, awaiting placement 12/04: Awaiting placement. No issues noted overnight, Hypokalemia resolved. Monitor for aspiration precautions. Continue current management with nephrology 12/05: Overall poor prognosis considering his overall medical condition. He still very lethargic very drowsy and somnolent. Urinalysis yesterday reveals urinary tract infection. Will start patient on empiric antibiotics while awaiting cultures. Strongly recommend that hospice should be considered for this patient 12/06: Unfortunately remains chronically ill. I did discuss with Mr. Appiah the patient care provider. I have also advised him of his current condition and that this patient will benefit from hospice or at the very least palliative care. No clinical improvement patient opens his eyes on noxious stimuli but no other movement. Continue wound prevention measures. 12/07/2020; pending placement, possible hospice Plan of care reviewed with the patient's nurse and case management 12/08/2020; pending placement 12/09/2020; awaiting placement, possible hospice house DC planning per case management 12/10/20; awaiting placement, medically stable 12/10/2020; pending placement 12/11/20; patient is medically stable, tolerating tube feeding, alert and awake No new changes, awaiting placement 12/12/2020; patient feels better, tolerating tube feeds, minimally communicative, awaiting placement 12/13/2020; patient is stable, awaiting placement DC planning per case management 12/14/2020; pending placement 12/15/2020; patient medically stable, social issue, pending placement 12/16/2020; social issues awaiting placement 12/17/2020 Awaiting placement 12/18/2020 Awaiting placement History Interval history: I have seen and examined the patient at the bedside this morning Patient's chart and medications reviewed Patient is noncommunicative ,spontaneous opening eyes Multiple social issues Awaiting placement Vital signs reviewed Objective - Constitutional Vitals: Vital Signs - 12hr 12/18/20 06:00 Temperature 99.1 F Pulse Rate 85 Respiratory 18 Rate Blood Pressure 119/68 [Right] O2 Sat by Pulse 85 Oximetry General appearance: Present: no acute distress, well-nourished - EENT Eyes: PERRL, EOM intact ENT: hearing intact, clear oral mucosa Ears: bilateral: normal - Neck Neck: supple, normal ROM - Respiratory Respiratory effort: normal Respiratory: bilateral: CTA - Breasts Breasts: normal - Cardiovascular Heart rate: 78 Rhythm: regular Heart Sounds: Present: S1 & S2. Absent: gallop, rub Extremities: pulses intact, No edema, normal color, Full ROM - Gastrointestinal General gastrointestinal: Present: soft, non-tender, non-distended, normal bowel sounds - Genitourinary Male genitourinary: normal - Integumentary Integumentary: clear, warm, dry - Musculoskeletal Musculoskeletal: 1, strength equal bilaterally - Neurologic Neurologic: moves all extremities, other (Alert but lethargic) - Psychiatric Psychiatric: other (Alert but lethargic) - Allied health notes Allied health notes reviewed: nursing, case management - Labs CBC & Chem 7: 12/17/20 06:13 12/17/20 06:13 Labs: Abnormal lab results 12/17/20 12/18/20 12/18/20 Range/Units 22:16 05:55 12:58 POC Glucose 144 H 132 H 117 H (70-105) mg/dL HEART Score - HEART Score Troponin: Troponin T < 0.010 ng/mL (0.00-0.029) 11/11/20 09:02
[2020-12-18] MEDS: ACETAMINOPHEN 325 MG TAB PO PRN (16:30)
[2020-12-18] MEDS: ENOXAPARIN 40 MG/0.4 ML INJ SUB-Q SCH (21:01)
[2020-12-19] MEDS: INSULIN REGULAR, HUMAN 100 UNITS/1 ML SUB-Q SCH ×4 (00:50→18:28)
[2020-12-19] MEDS: SODIUM CHLORIDE 1 GM TAB PO SCH ×3 (10:56→23:32)
[2020-12-19] MEDS: LANSOPRAZOLE 30 MG SOLUTAB FEEDTUBE SCH (11:02)
[2020-12-19] MEDS: THIAMINE 100 MG TAB PO SCH (11:02)
[2020-12-19] MEDS: levETIRAcetam 500 MG/5 ML ORAL LIQD FEEDTUBE SCH ×2 (11:02→21:07)
[2020-12-19] MEDS: PHENobarbital 15 MG TAB PO SCH ×2 (11:03→21:08)
[2020-12-19] MEDS: FOLIC ACID 1 MG TAB PO SCH (11:03)
[2020-12-19] MEDS: MULTIVITAMINS ,THERAPEUTIC TAB PO SCH (11:03)
--- NOTE | 2020-12-19 14:23 | Progress Note ---
Assessment and Plan Assessment and Plan Assessment and plan: COVID-19 test negative x 2 [ 11/12/2020, 11/23/2020] --Acute hypoxic respiratory failure requiring intubation 11/11/2020 /extubated 11/17/2020 Reintubated 11/18/2020/extubated 11/19/2020 Patient is saturating 97% on room air today --Acute toxic metabolic encephalopathy Multifactorial, due to seizures, SIRS, hyponatremia, abnormal thyroid functions Unknown baseline, treat the underlying cause,Has no ongoing infective process CT head ,MRI brain is negative, Continue supportive care --History of seizure disorder; no new episodes of seizure Seizure precautions ,continue antiepileptic medications ,cannot drive CT head and brain MRI showed no acute etiology for seizure --SIRS; Etiology unknown-urinalysis negative, chest x-ray also negative COVID-19 test negative, supportive care antibiotics DC'd --Needs ENT as outpatient for evaluation of upper airway. He has no carcinoma as written in previous notes Needs further evaluation of liver lesion with MRI as outpatient Also needs to follow up with pulmonary in the office --Dysphagia; s/p PEG placement, continue PEG care PEG feeds per protocol, aspiration precautions --Hyponatremia; Sodium today 129, continue replacement therapy Closely monitor electrolytes --Abnormal low TSH; Free T4 wnl -- Hypokalemia; No resolved --DVT prophylaxis-SCDs, Lovenox --GI prophylaxis-PPIs --Full CODE STATUS; Closely monitor the patient and adjust management as needed Patient is medically stable for discharge to hospice/SNF Case management processing DC planning Subjective Date of service: 12/19/20 Principal diagnosis: Neurogenic Dysphagia Interval history: Brief history; This is a 60-year-old male with seizure disorder current alcohol and tobacco abuse presents to the hospital on 11/11 after being found unresponsive. On arrival of EMS patient was found to be hypoglycemic and given IV dextrose after which he recovered and refused further care. EMS was called again by family after the patient was found unresponsive and was given Narcan with no change. Patient was noted to have seizure activity and given 7 mg IV Ativan total including 3 from EMS. Patient was loaded with Keppra 2 g and was intubated for airway protection. Patient was found to have metabolic acidosis and hypogly cemia on BMP. Patient was found to be hypothermic and hypertensive in the emergency department. Patient's UDS was positive for barbiturates. Patient was admitted to the hospital service for further work-up with consults to [facility] and neurology. 12/02. His sodium has improved. Awaiting placement. Has no family. [place] He will need ENT evaluation with laryngoscopy at discharge. 12/03; potassium sodium continues to be low, continue current management nephrology following, awaiting placement 12/04: Awaiting placement. No issues noted overnight, Hypokalemia resolved. Monitor for aspiration precautions. Continue current management with nephrology 12/05: Overall poor prognosis considering his overall medical condition. He still very lethargic very drowsy and somnolent. Urinalysis yesterday reveals urinary tract infection. Will start patient on empiric antibiotics while awaiting cultures. Strongly recommend that hospice should be considered for this patient 12/06: Unfortunately remains chronically ill. I did discuss with Mr. Appiah the patient care provider. I have also advised him of his current condition and that this patient will benefit from hospice or at the very least palliative care. No clinical improvement patient opens his eyes on noxious stimuli but no other movement. Continue wound prevention measures. 12/07/2020; pending placement, possible hospice Plan of care reviewed with the patient's nurse and case management 12/08/2020; pending placement 12/09/2020; awaiting placement, possible hospice house DC planning per case management 12/10/20; awaiting placement, medically stable 12/10/2020; pending placement 12/11/20; patient is medically stable, tolerating tube feeding, alert and awake No new changes, awaiting placement 12/12/2020; patient feels better, tolerating tube feeds, minimally communicative, awaiting placement 12/13/2020; patient is stable, awaiting placement DC planning per case management 12/14/2020; pending placement 12/15/2020; patient medically stable, social issue, pending placement 12/16/2020; social issues awaiting placement 12/17 to 12/19 Awaiting placement History Interval history: I have seen and examined the patient at the bedside this morning Patient's chart and medications reviewed Patient is noncommunicative ,spontaneous opening eyes Multiple social issues Awaiting placement Vital signs reviewed Objective - Constitutional Vitals: Vital Signs - 12hr 12/19/20 12/19/20 05:48 13:37 Temperature 97.8 F 97.9 F Pulse Rate 109 H 104 H Respiratory 20 16 Rate Blood Pressure 132/83 Blood Pressure 142/93 [Right] O2 Sat by Pulse 94 97 Oximetry General appearance: Present: no acute distress, well-nourished - EENT Eyes: PERRL, EOM intact ENT: hearing intact, clear oral mucosa Ears: bilateral: normal - Neck Neck: supple, normal ROM - Respiratory Respiratory effort: normal Respiratory: bilateral: CTA - Breasts Breasts: normal - Cardiovascular Heart rate: 78 Rhythm: regular Heart Sounds: Present: S1 & S2. Absent: gallop, rub Extremities: pulses intact, No edema, normal color, Full ROM - Gastrointestinal General gastrointestinal: Present: soft, non-tender, non-distended, normal bowel sounds - Genitourinary Male genitourinary: normal - Integumentary Integumentary: clear, warm, dry - Musculoskeletal Musculoskeletal: generalized weakness - Neurologic Neurologic: moves all extremities - Psychiatric Psychiatric: depressed - Allied health notes Allied health notes reviewed: nursing, case management - Labs CBC & Chem 7: 12/17/20 06:13 12/17/20 06:13 Labs: Abnormal lab results 12/18/20 12/19/20 12/19/20 Range/Units 16:49 00:26 05:44 POC Glucose 123 H 124 H 145 H (70-105) mg/dL HEART Score - HEART Score Troponin: Troponin T < 0.010 ng/mL (0.00-0.029) 11/11/20 09:02
[2020-12-19] MEDS: LIP THERAPY VASELINE TP PRN (21:10)
[2020-12-19] MEDS: ENOXAPARIN 40 MG/0.4 ML INJ SUB-Q SCH (23:32)
[2020-12-20] MEDS: INSULIN REGULAR, HUMAN 100 UNITS/1 ML SUB-Q SCH ×4 (01:16→18:56)
[2020-12-20] MEDS: LANSOPRAZOLE 30 MG SOLUTAB FEEDTUBE SCH (09:05)
[2020-12-20] MEDS: levETIRAcetam 500 MG/5 ML ORAL LIQD FEEDTUBE SCH ×2 (09:05→22:14)
[2020-12-20] MEDS: THIAMINE 100 MG TAB PO SCH (09:05)
[2020-12-20] MEDS: MULTIVITAMINS ,THERAPEUTIC TAB PO SCH (09:05)
[2020-12-20] MEDS: FOLIC ACID 1 MG TAB PO SCH (09:05)
[2020-12-20] MEDS: SODIUM CHLORIDE 1 GM TAB PO SCH ×3 (09:05→19:31)
[2020-12-20] MEDS: PHENobarbital 15 MG TAB PO SCH ×2 (09:05→22:14)
--- NOTE | 2020-12-20 17:13 | Progress Note ---
Assessment and Plan Assessment and Plan Assessment and plan: COVID-19 test negative x 2 [ 11/12/2020, 11/23/2020] --Acute hypoxic respiratory failure requiring intubation 11/11/2020 /extubated 11/17/2020 Reintubated 11/18/2020/extubated 11/19/2020 Patient is saturating 97% on room air today --Acute toxic metabolic encephalopathy Multifactorial, due to seizures, SIRS, hyponatremia, abnormal thyroid functions Unknown baseline, treat the underlying cause,Has no ongoing infective process CT head ,MRI brain is negative, Continue supportive care --History of seizure disorder; no new episodes of seizure Seizure precautions ,continue antiepileptic medications ,cannot drive CT head and brain MRI showed no acute etiology for seizure --SIRS; Etiology unknown-urinalysis negative, chest x-ray also negative COVID-19 test negative, supportive care antibiotics DC'd --Needs ENT as outpatient for evaluation of upper airway. He has no carcinoma as written in previous notes Needs further evaluation of liver lesion with MRI as outpatient Also needs to follow up with pulmonary in the office --Dysphagia; s/p PEG placement, continue PEG care PEG feeds per protocol, aspiration precautions --Hyponatremia; Sodium today 129, continue replacement therapy Closely monitor electrolytes --Abnormal low TSH; Free T4 wnl -- Hypokalemia; No resolved --DVT prophylaxis-SCDs, Lovenox --GI prophylaxis-PPIs --Full CODE STATUS; Closely monitor the patient and adjust management as needed Patient is medically stable for discharge to hospice/SNF Case management processing DC planning Subjective Date of service: 12/20/20 Principal diagnosis: Neurogenic Dysphagia Interval history: Brief history; This is a 60-year-old male with seizure disorder current alcohol and tobacco abuse presents to the hospital on 11/11 after being found unresponsive. On arrival of EMS patient was found to be hypoglycemic and given IV dextrose after which he recovered and refused further care. EMS was called again by family after the patient was found unresponsive and was given Narcan with no change. Patient was noted to have seizure activity and given 7 mg IV Ativan total including 3 from EMS. Patient was loaded with Keppra 2 g and was intubated for airway protection. Patient was found to have metabolic acidosis and hypogly cemia on BMP. Patient was found to be hypothermic and hypertensive in the emergency department. Patient's UDS was positive for barbiturates. Patient was admitted to the hospital service for further work-up with consults to [facility] and neurology. 12/02. His sodium has improved. Awaiting placement. Has no family. [place] He will need ENT evaluation with laryngoscopy at discharge. 12/03; potassium sodium continues to be low, continue current management nephrology following, awaiting placement 12/04: Awaiting placement. No issues noted overnight, Hypokalemia resolved. Monitor for aspiration precautions. Continue current management with nephrology 12/05: Overall poor prognosis considering his overall medical condition. He still very lethargic very drowsy and somnolent. Urinalysis yesterday reveals urinary tract infection. Will start patient on empiric antibiotics while awaiting cultures. Strongly recommend that hospice should be considered for this patient 12/06: Unfortunately remains chronically ill. I did discuss with Mr. Appiah the patient care provider. I have also advised him of his current condition and that this patient will benefit from hospice or at the very least palliative care. No clinical improvement patient opens his eyes on noxious stimuli but no other movement. Continue wound prevention measures. 12/07/2020; pending placement, possible hospice Plan of care reviewed with the patient's nurse and case management 12/08/2020; pending placement 12/09/2020; awaiting placement, possible hospice house DC planning per case management 12/10/20; awaiting placement, medically stable 12/10/2020; pending placement 12/11/20; patient is medically stable, tolerating tube feeding, alert and awake No new changes, awaiting placement 12/12/2020; patient feels better, tolerating tube feeds, minimally communicative, awaiting placement 12/13/2020; patient is stable, awaiting placement DC planning per case management 12/14/2020; pending placement 12/15/2020; patient medically stable, social issue, pending placement 12/16/2020; social issues awaiting placement 12/17/2020 Awaiting placement 12/18/2020 Awaiting placement 12/19 Awaiting placement 12/20 Placement History Interval history: I have seen and examined the patient at the bedside this morning Patient's chart and medications reviewed Patient is noncommunicative ,spontaneous opening eyes Multiple social issues Awaiting placement Vital signs reviewed Objective - Exam Narrative Exam: Patient intubated - Constitutional Vitals: Vital Signs - 12hr 12/20/20 11:36 Temperature 99.5 F Pulse Rate 87 Respiratory 19 Rate Blood Pressure 125/75 O2 Sat by Pulse 96 Oximetry General appearance: Present: no acute distress, well-nourished - EENT Eyes: PERRL, EOM intact ENT: hearing intact, clear oral mucosa Ears: bilateral: normal - Neck Neck: supple, normal ROM - Respiratory Respiratory effort: normal Respiratory: bilateral: CTA - Breasts Breasts: normal - Cardiovascular Heart rate: 78 Rhythm: regular Heart Sounds: Present: S1 & S2. Absent: gallop, rub Extremities: pulses intact, No edema, normal color, Full ROM - Gastrointestinal General gastrointestinal: Present: soft, non-tender, non-distended, normal bowel sounds - Genitourinary Male genitourinary: normal - Integumentary Integumentary: clear, warm, dry - Musculoskeletal Musculoskeletal: generalized weakness - Neurologic Neurologic: moves all extremities - Psychiatric Psychiatric: depressed - Labs CBC & Chem 7: 12/17/20 06:13 12/17/20 06:13 Labs: Abnormal lab results 12/20/20 12/20/20 Range/Units 00:47 06:23 POC Glucose 115 H 118 H (70-105) mg/dL HEART Score - HEART Score Troponin: Troponin T < 0.010 ng/mL (0.00-0.029) 11/11/20 09:02
[2020-12-20] MEDS: ENOXAPARIN 40 MG/0.4 ML INJ SUB-Q SCH (22:13)
[2020-12-21] MEDS: INSULIN REGULAR, HUMAN 100 UNITS/1 ML SUB-Q SCH ×3 (00:48→13:40)
[2020-12-21 07:52] LABS: Blood Urea Nitrogen 24 mg/dL (9-20); Hemolysis Index 5
[2020-12-21 08:07] LABS: BUN/Creatinine Ratio 60
[2020-12-21] MEDS: SODIUM CHLORIDE 1 GM TAB PO SCH (10:53)
[2020-12-21] MEDS: levETIRAcetam 500 MG/5 ML ORAL LIQD FEEDTUBE SCH (10:53)
--- NOTE | 2020-12-21 10:53 | Progress Note ---
Assessment and Plan Assessment and plan: COVID-19 test negative x 2 [ 11/12/2020, 11/23/2020] --Acute hypoxic respiratory failure requiring intubation 11/11/2020 /extubated 11/17/2020 Reintubated 11/18/2020/extubated 11/19/2020 Patient is saturating 97% on room air today --Acute toxic metabolic encephalopathy Multifactorial, due to seizures, SIRS, hyponatremia, abnormal thyroid functions Unknown baseline, treat the underlying cause,Has no ongoing infective process CT head ,MRI brain is negative, Continue supportive care --History of seizure disorder; no new episodes of seizure Seizure precautions ,continue antiepileptic medications ,cannot drive CT head and brain MRI showed no acute etiology for seizure --SIRS; Etiology unknown-urinalysis negative, chest x-ray also negative COVID-19 test negative, supportive care antibiotics DC'd --Needs ENT as outpatient for evaluation of upper airway. He has no carcinoma as written in previous notes Needs further evaluation of liver lesion with MRI as outpatient Also needs to follow up with pulmonary in the office --Dysphagia; s/p PEG placement, continue PEG care PEG feeds per protocol, aspiration precautions --Hyponatremia; Sodium today 129, continue replacement therapy Closely monitor electrolytes --Abnormal low TSH; Free T4 wnl -- Hypokalemia; No resolved --DVT prophylaxis-SCDs, Lovenox --GI prophylaxis-PPIs --Full CODE STATUS; Closely monitor the patient and adjust management as needed Patient is medically stable for discharge to hospice/SNF Case management processing DC planning Subjective Date of service: 12/20/20 Principal diagnosis: Neurogenic Dysphagia Interval history: Brief history; This is a 60-year-old male with seizure disorder current alcohol and tobacco abuse presents to the hospital on 11/11 after being found unresponsive. On arrival of EMS patient was found to be hypoglycemic and given IV dextrose after which he recovered and refused further care. EMS was called again by family after the patient was found unresponsive and was given Narcan with no change. Patient was noted to have seizure activity and given 7 mg IV Ativan total includ ing 3 from EMS. Patient was loaded with Keppra 2 g and was intubated for airway protection. Patient was found to have metabolic acidosis and hypoglycemia on BMP. Patient was found to be hypothermic and hypertensive in the emergency department. Patient's UDS was positive for barbiturates. Patient was admitted to the hospital service for further work-up with consults to [facility] and neurology. 12/02. His sodium has improved. Awaiting placement. Has no family. Patient is a [place] of the state. He will need ENT evaluation with laryngoscopy at discharge. 12/03; potassium sodium continues to be low, continue current management nephrology following, awaiting placement 12/04: Awaiting placement. No issues noted overnight, Hypokalemia resolved. Monitor for aspiration precautions. Continue current management with nephrology 12/05: Overall poor prognosis considering his overall medical condition. He still very lethargic very drowsy and somnolent. Urinalysis yesterday reveals urinary tract infection. Will start patient on empiric antibiotics while awaiting cultures. Strongly recommend that hospice should be considered for this patient 12/06: Unfortunately remains chronically ill. I did discuss with Mr. Appiah the patient care provider. I have also advised him of his current condition and juan t this patient will benefit from hospice or at the very least palliative care. No clinical improvement patient opens his eyes on noxious stimuli but no other movement. Continue wound prevention measures. 12/07/2020; pending placement, possible hospice Plan of care reviewed with the patient's nurse and case management 12/08/2020; pending placement 12/09/2020; awaiting placement, possible hospice house DC planning per case management 12/10/20; awaiting placement, medically stable 12/10/2020; pending placement 12/11/20; patient is medically stable, tolerating tube feeding, alert and awake No new changes, awaiting placement 12/12/2020; patient feels better, tolerating tube feeds, minimally communicative, awaiting placement 12/13/2020; patient is stable, awaiting placement DC planning per case management 12/14/2020; pending placement 12/15/2020; patient medically stable, social issue, pending placement 12/16/2020; social issues awaiting placement 12/17/2020 Awaiting placement 12/18/2020 Awaiting placement 12/19 Awaiting placement 12/20 Placement 12/21/2020; DC planning per case management Awaiting placement Hospitalist Physical - Constitutional Vitals: Temp Pulse Resp BP Pulse Ox 97.1 F L 85 20 132/71 94 12/21/20 07:17 12/21/20 07:17 12/21/20 07:17 12/21/20 07:17 12/21/20 07:17 General appearance: Present: no acute distress, well-nourished HEART Score - HEART Score Troponin: Troponin T < 0.010 ng/mL (0.00-0.029) 11/11/20 09:02 Results - Labs CBC & Chem 7: 12/17/20 06:13 12/21/20 07:01 Labs: Laboratory Last Values WBC 12.7 K/mm3 (4.5-11.0) H 12/17/20 06:13 RBC 3.95 M/mm3 (3.65-5.03) 12/17/20 06:13 Hgb 11.0 gm/dl (11.8-15.2) L 12/17/20 06:13 Hct 33.1 % (35.5-45.6) L 12/17/20 06:13 MCV 84 fl (84-94) 12/17/20 06:13 MCH 28 pg (28-32) 12/17/20 06:13 MCHC 33 % (32-34) 12/17/20 06:13 RDW 15.3 % (13.2-15.2) H 12/17/20 06:13 Plt Count 469 K/mm3 (140-440) H 12/17/20 06:13 Lymph % (Auto) 18.3 % (13.4-35.0) 11/26/20 06:23 [place] % (Auto) 9.8 % (0.0-7.3) H 11/26/20 06:23 Eos % (Auto) 1.1 % (0.0-4.3) 11/26/20 06:23 Baso % (Auto) 0.7 % (0.0-1.8) 11/26/20 06:23 Lymph # (Auto) 1.7 K/mm3 (1.2-5.4) 11/26/20 06:23 [place] # (Auto) 0.9 K/mm3 (0.0-0.8) H 11/26/20 06:23 Eos # (Auto) 0.1 K/mm3 (0.0-0.4) 11/26/20 06:23 Baso # (Auto) 0.1 K/mm3 (0.0-0.1) 11/26/20 06:23 Add Manual Diff Complete 12/17/20 06:13 Total Counted 100 12/17/20 06:13 Seg Neutrophils % 70.1 % (40.0-70.0) H 11/26/20 06:23 Seg Neuts % (Manual) 79.0 % (40.0-70.0) H 12/17/20 06:13 Band Neutrophils % 1.0 % 12/17/20 06:13 Lymphocytes % (Manual) 9.0 % (13.4-35.0) L 12/17/20 06:13 Reactive Lymphs % (Man) 4.0 % 11/27/20 05:50 Monocytes % (Manual) 7.0 % (0.0-7.3) 12/17/20 06:13 Eosinophils % (Manual) 2.0 % (0.0-4.3) 12/17/20 06:13 Metamyelocytes % 2.0 % 12/17/20 06:13 Nucleated RBC % Not Reportable 12/17/20 06:13 Seg Neutrophils # 9.5 K/mm3 (1.8-7.7) H 11/26/20 06:23 Seg Neutrophils # Man 10.0 K/mm3 (1.8-7.7) H 12/17/20 06:13 Band Neutrophils # 0.1 K/mm3 12/17/20 06:13 Lymphocytes # (Manual) 1.1 K/mm3 (1.2-5.4) L 12/17/20 06:13 Abs React Lymphs (Man) 0.0 K/mm3 12/17/20 06:13 Monocytes # (Manual) 0.9 K/mm3 (0.0-0.8) H 12/17/20 06:13 Eosinophils # (Manual) 0.3 K/mm3 (0.0-0.4) 12/17/20 06:13 Basophils # (Manual) 0.0 K/mm3 (0.0-0.1) 12/17/20 06:13 Metamyelocytes # 0.3 K/mm3 12/17/20 06:13 Myelocytes # 0.0 K/mm3 12/17/20 06:13 Promyelocytes # 0.0 K/mm3 12/17/20 06:13 Blast Cells # 0.0 K/mm3 12/17/20 06:13 WBC Morphology Not Reportable 12/17/20 06:13 Hypersegmented Neuts Not Reportable 12/17/20 06:13 Hyposegmented Neuts Not Reportable 12/17/20 06:13 Hypogranular Neuts Not Reportable 12/17/20 06:13 Smudge Cells Not Reportable 12/17/20 06:13 Toxic Granulation Not Reportable 12/17/20 06:13 Toxic Vacuolation Not Reportable 12/17/20 06:13 Dohle Bodies Not Reportable 12/17/20 06:13 Pelger-Huet Anomaly Not Reportable 12/17/20 06:13 Fercho Rods Not Reportable 12/17/20 06:13 Platelet Estimate Consistent w auto 12/17/20 06:13 Clumped Platelets Not Reportable 12/17/20 06:13 Plt Clumps, EDTA Not Reportable 12/17/20 06:13 Large Platelets Not Reportable 12/17/20 06:13 Giant Platelets Not Reportable 12/17/20 06:13 Platelet Satelliting Not Reportable 12/17/20 06:13 Plt Morphology Comment Not Reportable 12/17/20 06:13 RBC Morphology Not Reportable 12/17/20 06:13 Dimorphic RBCs Not Reportable 12/17/20 06:13 Polychromasia Not Reportable 12/17/20 06:13 Hypochromasia Not Reportable 12/17/20 06:13 Poikilocytosis Not Reportable 12/17/20 06:13 Anisocytosis 1+ 12/17/20 06:13 Microcytosis Not Reportable 12/17/20 06:13 Macrocytosis Not Reportable 12/17/20 06:13 Spherocytes Not Reportable 12/17/20 06:13 Pappenheimer Bodies Not Reportable 12/17/20 06:13 Sickle Cells Not Reportable 12/17/20 06:13 Target Cells Not Reportable 12/17/20 06:13 Tear Drop Cells Not Reportable 12/17/20 06:13 Ovalocytes Not Reportable 12/17/20 06:13 Helmet Cells Not Reportable 12/17/20 06:13 Kim-Belmore Bodies Not Reportable 12/17/20 06:13 [place] Rings Not Reportable 12/17/20 06:13 Joni Cells Not Reportable 12/17/20 06:13 Bite Cells Not Reportable 12/17/20 06:13 Crenated Cell Not Reportable 12/17/20 06:13 Elliptocytes Not Reportable 12/17/20 06:13 Acanthocytes (Spur) Not Reportable 12/17/20 06:13 Rouleaux Not Reportable 12/17/20 06:13 Hemoglobin C Crystals Not Reportable 12/17/20 06:13 Schistocytes Not Reportable 12/17/20 06:13 Malaria parasites Not Reportable 12/17/20 06:13 Jones Bodies Not Reportable 12/17/20 06:13 Hem Pathologist Commnt No 12/17/20 06:13 PT 11.5 Sec. (12.2-14.9) L 11/11/20 09:02 INR 0.86 (0.87-1.13) L 11/11/20 09:02 APTT 25.5 Sec. (24.2-36.6) 11/11/20 09:02 Thrombin Time 17.0 Sec. (15.1-19.6) 11/11/20 09:02 ABG pH 7.499 (7.320-7.450) H 11/17/20 11:40 POC ABG pCO2 36.3 mmHg (32.0-48.0) 11/17/20 11:40 ABG pCO2 33.9 mm Hg 11/11/20 10:45 POC ABG pO2 140.8 mmHg (83-108) H 11/17/20 11:40 ABG pO2 222.2 mm Hg (80.0-90.0) H 11/11/20 10:45 POC ABG HCO3 27.6 11/17/20 11:40 ABG HCO3 24.9 mmol/L (20.0-26.0) 11/11/20 10:45 ABG O2 Saturation 98.1 (0-100) 11/17/20 11:40 ABG O2 Content 19.4 (0.0-44) 11/11/20 10:45 POC ABG Base Excess 4.4 11/17/20 11:40 ABG Base Excess 1.9 mmol/L (-2.0-3.0) 11/11/20 10:45 ABG Hemoglobin 11.8 (12.0-17.5) L 11/17/20 11:40 ABG Oxyhemoglobin 97.4 (94-98) 11/17/20 11:40 ABG Carboxyhemoglobin 0.6 % (0.0-5.0) 11/11/20 10:45 ABG Methemoglobin 0.3 (0.0-1.5) 11/17/20 11:40 ABG Sodium 135.1 mmol/L (136.0-145.0) L 11/17/20 11:40 ABG Potassium 4.2 mmol/L (3.40-4.50) 11/17/20 11:40 ABG Chloride 102.0 mmol/L (98-107) 11/17/20 11:40 ABG Glucose 110 mg/dL (65-95) H 11/17/20 11:40 Oxyhemoglobin 98.5 % (95.0-99.0) 11/11/20 10:45 Carboxyhemoglobin 0.4 (0.5-1.5) L 11/17/20 11:40 FiO2 21 % 11/11/20 10:45 FiO2 % 30 11/17/20 11:40 Sodium 137 mmol/L (137-145) 12/21/20 07:01 Potassium 4.7 mmol/L (3.6-5.0) 12/21/20 07:01 Chloride 100.0 mmol/L (98-107) 12/21/20 07:01 Carbon Dioxide 33 mmol/L (22-30) H 12/21/20 07:01 Anion Gap 9 mmol/L 12/21/20 07:01 BUN 24 mg/dL (9-20) H 12/21/20 07:01 Creatinine 0.4 mg/dL (0.8-1.3) L 12/21/20 07:01 Estimated GFR > 60 ml/min 12/21/20 07:01 BUN/Creatinine Ratio 60 % 12/21/20 07:01 Glucose 121 mg/dL (75-100) H 12/21/20 07:01 POC Glucose 115 mg/dL (70-105) H 12/20/20 21:30 Hemoglobin A1c 5.4 % (4-6) 11/12/20 07:26 Osmolality 274 Mosm/kg 11/29/20 13:08 Uric Acid 1.7 mg/dL (3.5-7.6) L 11/29/20 13:08 Calcium 9.0 mg/dL (8.4-10.2) 12/21/20 07:01 Magnesium 1.60 mg/dL (1.7-2.3) L 12/17/20 06:13 Total Bilirubin 0.60 mg/dL (0.1-1.2) 12/17/20 06:13 AST 63 units/L (5-40) H 12/17/20 06:13 ALT 51 units/L (7-56) 12/17/20 06:13 Alkaline Phosphatase 235 units/L (35-129) H 12/17/20 06:13 Ammonia 29.0 umol/L (25-60) 11/12/20 08:47 Total Creatine Kinase 169 units/L (55-170) 11/11/20 09:02 CK-MB (CK-2) 6.6 ng/mL (0.0-4.0) H 11/11/20 09:02 CK-MB (CK-2) Rel Index 3.9 (0-4) 11/11/20 09:02 Troponin T < 0.010 ng/mL (0.00-0.029) 11/11/20 09:02 Total Protein 6.7 g/dL (6.3-8.2) 12/17/20 06:13 Albumin 2.3 g/dL (3.9-5) L 12/17/20 06:13 Albumin/Globulin Ratio 0.5 % 12/17/20 06:13 TSH 5.610 mlU/mL (0.270-4.200) H 11/29/20 05:52 Free T4 1.24 ng/dL (0.76-1.46) 11/29/20 10:31 Total Cortisol 25.5 mcg/dL () 11/29/20 05:52 Arterial Blood Glucose 110 mg/dL (65-95) H 11/17/20 11:40 Arterial Blood Ionized Calcium 4.9 mg/dL (4.6-5.3) 11/17/20 11:40 Urine Color Jennifer (Yellow) 12/05/20 06:20 Urine Turbidity Slightly-cloudy (Clear) 12/05/20 06:20 Urine pH 7.0 (5.0-7.0) 12/05/20 06:20 Ur Specific [place] 1.025 (1.003-1.030) 12/05/20 06:20 Urine Protein 30 mg/dl mg/dL (Negative) 12/05/20 06:20 Urine Glucose (UA) Neg mg/dL (Negative) 12/05/20 06:20 Urine Ketones Neg mg/dL (Negative) 12/05/20 06:20 Urine Blood Neg (Negative) 12/05/20 06:20 Urine Nitrite Neg (Negative) 12/05/20 06:20 Urine Bilirubin Neg (Negative) 12/05/20 06:20 Urine Urobilinogen 4.0 mg/dL (<2.0) 12/05/20 06:20 Ur Leukocyte Esterase Sm (Negative) 12/05/20 06:20 Urine WBC (Auto) 13.0 /HPF (0.0-6.0) H 12/05/20 06:20 Urine RBC (Auto) 2.0 /HPF (0.0-6.0) 12/05/20 06:20 U Epithel Cells (Auto) 2.0 /HPF (0-13.0) 12/05/20 06:20 Urine Bacteria (Auto) 1+ /HPF (Negative) 12/05/20 06:20 Urine Mucus Few /HPF 12/05/20 06:20 Urine Osmolality 610 Mosm/kg 11/29/20 11:09 Urine Opiates Screen Negative 11/11/20 20:27 Urine Methadone Screen Negative 11/11/20 20:27 Ur Barbiturates Screen Positive 11/11/20 20:27 Ur Phencyclidine Scrn Negative 11/11/20 20:27 Ur Amphetamines Screen Negative 11/11/20 20:27 Phenobarbital 4.3 ug/mL (15.0-40.0) L 11/12/20 08:47 U Benzodiazepines Scrn Negative 11/11/20 20:27 Urine Cocaine Screen Negative 11/11/20 20:27 U Marijuana (THC) Screen Negative 11/11/20 20:27 Drugs of Abuse Note Disclamer 11/11/20 20:27 Plasma/Serum Alcohol < 0.01 % (0-0.07) 11/11/20 09:02 Coronavirus (PCR) Negative (Negative) 12/13/20 Unknown [place]/IV: Voiding Method Condom Catheter Active Medications - Current Medications Current Medications: Generic Name Dose Route Start Last Admin Trade Name Georgeq PRN Reason Stop Dose Admin Acetaminophen 650 mg 11/11/20 22:58 12/18/20 16:30 Acetaminophen 325 Mg Tab PO 650 mg Q4H PRN Administration Pain MILD(1-3)/Fever >100.5/BAR Lipase/Protease/Amylase 1 each 11/12/20 12:00 Lipase 10,500/Protease 25,000/Amylase 43,750 (Units) Dr Rangel FEEDTUBE PRN PRN For Clogged Feeding Tube Enoxaparin Sodium 40 mg 11/12/20 22:00 12/20/20 22:13 Enoxaparin 40 Mg/0.4 Ml Inj SUB-Q 40 mg QDAY@2200 [facility] Administration Protocol Folic Acid 1 mg 11/16/20 10:00 12/20/20 09:05 Folic Acid 1 Mg Tab PO 1 mg DAILY KIRK Administration Hydralazine HCl 10 mg 11/12/20 10:30 12/12/20 21:49 Hydralazine 20 Mg/1 Ml Inj IV 10 mg Q4H PRN Administration Hypertension Hydrophilic Ointment 1 applic 11/11/20 09:14 12/19/20 21:10 Lip Therapy Vaseline TP 1 applic Q2HR PRN Administration Dry Lips Insulin Human Regular 0 units 11/12/20 18:00 12/21/20 06:10 Insulin Regular, Human 100 Units/1 Ml SUB-Q Not Given Q6H [facility] Protocol Lansoprazole 30 mg 11/24/20 10:00 12/20/20 09:05 Lansoprazole 30 Mg Solutab FEEDTUBE 30 mg QDAY KIRK Administration Levetiracetam 1,000 mg 11/24/20 10:00 12/20/20 22:14 Levetiracetam 500 Mg/5 Ml Oral Liqd FEEDTUBE 1,000 mg BID KIRK Administration Multi-Ingred Cream/Lotion/Oil/Oint 1 applic 11/11/20 09:14 Mineral Oil/Petrolatum, White Ophth Oint 3.5 Gm OU Q4HR PRN Dry Eye(s) Multivitamins 1 each 12/12/20 10:00 12/20/20 09:05 Multivitamins ,Therapeutic Tab PO 1 each DAILY KIRK Administration Naloxone HCl 2 mg 11/11/20 08:33 Naloxone 0.4 Mg/1 Ml Inj IV Q2MIN PRN Res Rate </= 8 or 02 SAT < 92% Phenobarbital 15 mg 11/11/20 23:45 12/20/20 22:14 Phenobarbital 15 Mg Tab PO 15 mg BID KIRK Administration Simple Syrup 15 ml 11/12/20 12:00 12/08/20 07:15 Simple Syrup 15 Ml FEEDTUBE 15 ml PRN PRN Administration Hypoglycemia Simple Syrup 30 ml 11/12/20 12:00 Simple Syrup 15 Ml FEEDTUBE PRN PRN Hypoglycemia Sodium Bicarbonate 325 mg 11/12/20 12:00 Sodium Bicarbonate 325 Mg Tab FEEDTUBE PRN PRN For Clogged Feeding Tube Sodium Chloride 10 ml 11/11/20 23:00 12/20/20 22:14 Sodium Chloride 0.9% 10 Ml Flush Syringe IV 10 ml BID KIRK Administration Sodium Chloride 10 ml 11/11/20 22:58 Sodium Chloride 0.9% 10 Ml Flush Syringe IV PRN PRN LINE FLUSH Sodium Chloride 2 gm 11/30/20 22:23 12/20/20 19:31 Sodium Chloride 1 Gm Tab PO Not Given TID KIRK Thiamine HCl 100 mg 11/16/20 10:00 12/20/20 09:05 Thiamine 100 Mg Tab PO 100 mg QDAY KIRK Administration Nutrition/Malnutrition Assess - Dietary Evaluation Nutrition/Malnutrition Findings: Nutrition Notes Start: 11/12/20 08:26 Freq: Status: Active Protocol: Document 12/16/20 11:08 (Rec: 12/16/20 11:12 [email or web address]) Nutrition Notes Initial or Follow up Reassessment Current Diagnosis Respiratory Failure,Stroke Other Pertinent Diagnosis Seizures, Neurogenic Dysphagia Current Diet TF - Jevity 1.2 at 60ml/hr Labs/Tests 12/15: Na 131 Cr 0.5 Pertinent Medications NaCl 2 grams Height 5 ft 9 in Weight 63 kg [place] Body Weight (kg) 72.72 BMI 20.5 Weight Status Underweight Subjective/Other Information FU for TF tolerance. Per RN, pt tolerating TF at goal rate. Percent of energy/protein needs met: 100% energy/pro Burn Absent Trauma Absent GI Symptoms None Difficulty In Swallowing Current % PO Negligible Minimum of two criteria No Interpretation of Weight Loss (severe) >5% in 1 month #2 Nutrition Diagnosis Inadequate energy intake Diagnosis Progress(for reassessment Continues documentation) #1 Nutrition Diagnosis Inadequate oral intake Diagnosis Progress(for reassessment Continues documentation) Is patient on ventilator? No Is Patient Ambulatory and/or Out of Bed No REE-([facility]-confined to bed) [phone] Calculation Used for Recommendations [facility] Additional Notes Pro needs 1.2-1.5g/k-88g/ day Fluid needs 1ml/kcal Nutrition Intervention Change Diet Order: TF Nutrition Support: Jevity 1.2 at 60 ml/hr Flush 50 mL q4h Kcal 1,728 Protein (gm) 80 Fluid (mL) 1,162 Goal #1 Meet at least 75% of estimated energy and protein needs via TF Goal #2 weight stability/increase Anticipated Discharge Needs: TF Jevity 1.2 at 60 ml/hr Follow-Up By: 12/23/20 Additional Comments FU for stable TF
[2020-12-21] MEDS: THIAMINE 100 MG TAB PO SCH (10:54)
[2020-12-21] MEDS: MULTIVITAMINS ,THERAPEUTIC TAB PO SCH (10:54)
[2020-12-21] MEDS: LANSOPRAZOLE 30 MG SOLUTAB FEEDTUBE SCH (10:54)
[2020-12-21] MEDS: FOLIC ACID 1 MG TAB PO SCH (10:55)
[2020-12-21] MEDS: PHENobarbital 15 MG TAB PO SCH (10:55)
--- NOTE | 2020-12-21 11:15 | Discharge Summary ---
Providers - Providers Date of Admission: 11/11/20 13:04 Date of discharge: 12/21/20 Attending physician: AMANDA VALENCIA 11/11/20 09:14 Consult to Dietitian/Nutrition [CONS] Routine Physician Instructions: Reason For Exam: Reason for Consult: Evaluate nutritional intake 11/11/20 23:04 Consult to Dietitian/Nutrition [CONS] Routine Physician Instructions: Reason For Exam: Reason for Consult: Pt needs oral supplement 11/12/20 08:05 Consult to Physician [CONS] Routine Comment: Consulting Provider: MADIE LAWTON Physician Instructions: Reason For Exam: Seizures 11/17/20 13:07 Speech Therapy Evaluation and Treat [CONS] Routine Reason For Exam: S/p extubation 11/18/20 09:48 Occupational Therapy Evaluate and Treat [CONS] Routine Comment: Reason For Exam: Debility Physical Therapy Evaluation and Treat [CONS] Routine Comment: Reason For Exam: Debility 11/18/20 15:01 Consult to Physician [CONS] Routine Comment: Consulting Provider: ANNA CARRERA Physician Instructions: Reason For Exam: esophageal mass 11/20/20 05:41 Consult to Wound/ET Nurse [CONS] Routine Reason For Exam: wound eval 11/20/20 10:34 Consult to Physician [CONS] Routine Comment: Consulting Provider: GLORIA MOERNO Physician Instructions: Reason For Exam: Probable metastatic CA 11/21/20 09:17 Consult to Physician [CONS] Routine Comment: Consulting Provider: AMANDO BARRAGAN Physician Instructions: Reason For Exam: evaluate for PEG 11/22/20 11:02 Speech Therapy Evaluation and Treat [CONS] Routine Reason For Exam: Neurogenic Dysphagia 11/22/20 15:06 Consult to Mental Health [CONS] Routine Reason For Exam: eval 11/29/20 09:26 Consult to Physician [CONS] Routine Comment: Consulting Provider: ELIZABETH MEI Physician Instructions: Reason For Exam: Hyponatremia 12/09/20 12:55 Physical Therapy Evaluation and Treat [CONS] Routine Comment: Reason For Exam: Debility 12/09/20 12:56 Occupational Therapy Evaluate and Treat [CONS] Routine Comment: Reason For Exam: Debility Primary care physician: [employer] Hospitalization Reason for admission: Seizures, acute toxic metabolic encephalopathy Condition: Stable Pertinent studies: CT head CTA neck CTA head multiple chest x-rays EEG Procedures: PEG placement Hospital course: 60-year-old male with history of seizure disorder found unresponsive. On arrival of EMS patient was found to be hypoglycemic for which IV dextrose was given and patient became responsive. Family refused further care. Family called EMS again because of the unresponsiveness and possible cardiac arrest. Patient was given Narcan with no response. Patient was unresponsive and code stroke was initiated. Patient was given Narcan with no response. Patient was unresponsive and was intubated because of protection of airway. No seizures noted. Patient was history of seizures. No fever or chills. Patient was admitted appropriately managed COVID-19 test x2 - negative Patient was intubated and later extubated, evaluated pulmonary, neurology, medications optimized Patient had dysphagia, evaluated by GI, subsequently underwent PEG placement Started PEG feeds which patient tolerated well, patient received physical therapy occupational therapy Recommended SNF placement. Case management has evaluated the patient and set up SNF placement Today patient is comfortable no new complaints vital signs stable Hemodynamically and clinically stable for discharge and transfer to SNF Discharge diagnosis; COVID-19 test negative x 2 [ 11/12/2020, 11/23/2020] --Acute hypoxic respiratory failure requiring intubation 11/11/2020 /extubated 11/17/2020 Reintubated 11/18/2020/extubated 11/19/2020 Patient is saturating 97% on room air today --Acute toxic metabolic encephalopathy Multifactorial, due to seizures, SIRS, hyponatremia, abnormal thyroid functions Unknown baseline, treat the underlying cause,Has no ongoing infective process CT head ,MRI brain is negative, Continue supportive care --History of seizure disorder; no new episodes of seizure Seizure precautions ,continue antiepileptic medications ,cannot drive CT head and brain MRI showed no acute etiology for seizure --SIRS; Etiology unknown-urinalysis negative, chest x-ray also negative COVID-19 test negative, supportive care antibiotics DC'd --Needs ENT as outpatient for evaluation of upper airway. He has no carcinoma as written in previous notes Needs further evaluation of liver lesion with MRI as outpatient Also needs to follow up with pulmonary in the office --Dysphagia; s/p PEG placement, continue PEG care PEG feeds per protocol, aspiration precautions --Hyponatremia; Sodium today 129, continue replacement therapy Closely monitor electrolytes --Severe malnutrition; Tube feeding, nutrition supplements, supportive care Nutrition consult --Abnormal low TSH; Free T4 wnl -- Hypokalemia; No resolved Disposition: [id number] Final Discharge Diagnosis (Prints w/discharge instructions): Discharge diagnosis;. COVID-19 test negative x2. Acute toxic metabolic encephalopathy. SIRS. Seizure disorder. Dysphagia. PEG placement. Hyponatremia. Hypokalemia resolved. Severe malnutrition Time spent for discharge: 35 min Core Measure Documentation - Palliative Care Palliative Care/ Comfort Measures: Not Applicable - Core Measures Any of the following diagnoses?: none Exam - Constitutional Vitals: Temp Pulse Resp BP Pulse Ox 97.1 F L 85 20 132/71 94 12/21/20 07:17 12/21/20 07:17 12/21/20 07:17 12/21/20 07:17 12/21/20 07:17 General appearance: Present: no acute distress, cachectic, other (Emaciated) - EENT Eyes: Present: PERRL, EOM intact - Neck Neck: Present: supple, normal ROM - Respiratory Respiratory effort: normal Respiratory: bilateral: diminished, negative: rales, rhonchi, wheezing - Cardiovascular Rhythm: regular Heart Sounds: Present: S1 & S2 - Extremities Extremities: no ischemia, No edema - Abdominal General gastrointestinal: Present: soft, non-tender, non-distended, normal bowel sounds, other (PEG tube in place) - Integumentary Integumentary: Present: clear, warm - Musculoskeletal Musculoskeletal: strength equal bilaterally, generalized weakness - Psychiatric Psychiatric: other (Noncommunicative) - Neurologic Neurologic: other (Noncommunicative) Plan Activity: advance as tolerated, no driving until cleared by PCP, fall precautions Diet: other (Tube feeding per protocol) Additional Instructions: Fall precaution. Aspiration precautions. Seizure precautions. You have worsening symptoms contact MD or go to emergency room as needed Follow up with: PRIMARY CARE,MD [Primary Care Provider] - 3-5 Days Prescriptions: levETIRAcetam [Keppra] 1,000 mg FEEDTUBE BID #30 oral.liqd PHENobarbitaL [PHENobarbital] 15 mg PO BID 30 Days #60 tablet
[2020-12-21 13:22] VITALS: BP 146/85
== END 2020-12-21 15:26 | DRG 207 ==
LOC: ED 08:30 → IMCU 13:04 → CC1 15:56 → 3A 11-19 18:51
PROVIDERS: ADMIT Internal Medicine; ATTEND Internal Medicine
PROC: 5A1955Z Respiratory Ventilation, Greater than 96 Consecutive Hours (ICD-10-PCS; 2020-11-12)
PROC: 0BH17EZ Insertion of Endotracheal Airway into Trachea, Via Natural or Artificial Opening (ICD-10-PCS; 2020-11-12)
PROC: 0BJ08ZZ Inspection of Tracheobronchial Tree, Via Natural or Artificial Opening Endoscopic (ICD-10-PCS; 2020-11-18)
PROC: 0DH68UZ Insertion of Feeding Device into Stomach, Via Natural or Artificial Opening Endoscopic (ICD-10-PCS; principal; 2020-11-23)
PROC: 4A033R1 Measurement of Arterial Saturation, Peripheral, Percutaneous Approach (ICD-10-PCS; 2020-12-18)
PROC: 4A10X4Z Monitoring of Central Nervous Electrical Activity, External Approach (ICD-10-PCS; 2020-12-18)
DX: J96.01 Acute respiratory failure with hypoxia (principal); E43 Unspecified severe protein-calorie malnutrition; G92 Toxic encephalopathy; E16.2 Hypoglycemia, unspecified; Z20.822 Contact with and (suspected) exposure to COVID-19; E87.1 Hypo-osmolality and hyponatremia; R74.01 Elevation of levels of liver transaminase levels; G40.901 Epilepsy, unspecified, not intractable, with status epilepticus; F10.10 Alcohol abuse, uncomplicated; R13.10 Dysphagia, unspecified; C76.0 Malignant neoplasm of head, face and neck; E87.6 Hypokalemia; C78.7 Secondary malignant neoplasm of liver and intrahepatic bile duct; C78.00 Secondary malignant neoplasm of unspecified lung; C79.89 Secondary malignant neoplasm of other specified sites; R65.10 Systemic inflammatory response syndrome (SIRS) of non-infectious origin without acute organ dysfunction; F17.200 Nicotine dependence, unspecified, uncomplicated; Z79.899 Other long term (current) drug therapy; Z68.1 Body mass index [BMI] 19.9 or less, adult
CPT/HCPCS: 31500; 36415; 36600; 70450; 70490; 70496; 70498; 70551; 71045; 71250; 74018; 80048; 80051; 80053; 80184; 80307; 80320; 81001; 82140; 82533; 82550; 82553; 82803; 82805; 82947; 82962; 83036; 83735; 83930; 83935; 84295; 84439; 84443; 84484; 84550; 85007; 85025; 85027; 85610; 85670; 85730; 87070; 87086; 87205; 93005; 94002; 94003; 94640; 94760; 95819; 96361; 96374; 96375; G0378; G0480; J0330; J0360; J0690; J0692; J1650; J1815; J1953; J2060; J2250; J2310; J2704; J2930; J3010; J3370; J3411; J7030; J7040; J7050; J7070; Q9967; U0003

== ENCOUNTER 2021-08-09 02:26 | Emergency (ER) | payer MEDICARE ==
--- NOTE | 2021-08-09 03:23 | Emergency Department Report ---
ED CPR HPI - General Chief Complaint: Cardiac Arrest/CPR Stated Complaint: CARDIAC ARREST Time Seen by Provider: 08/09/21 02:39 Source: EMS Mode of arrival: Stretcher Limitations: Altered Mental Status, Physical Limitation - History of Present Illness Initial Comments: Patient was brought in as a cardiac arrest. History is obtained from EMS. Patient is intubated and cannot provide history. There is no family present. Briefly, the patient was sent in from the longterm in cardiac arrest. They allegedly check the patient at 1:30 AM. They found the patient to be unresponsive. EMS was called and CPR was started. Patient remained in asystole per EMS. He had had epinephrine x3. He had been intubated. He had had CPR. He remained in asystole. Upon arrival, CPR is in progress. Evaluation is in progress. The patient is in asystole. - Related Data Home Medications Medication Instructions Recorded Confirmed Last Taken Vitamin B-1 100 mg PO DAILY 08/12/20 11/12/20 Unknown Previous Rx's Medication Instructions Recorded Last Taken Type Acetaminophen [Acetaminophen TAB] 650 mg PO Q4H PRN tablet 12/21/20 Unknown Rx Folic Acid [Folvite] 1 mg PO DAILY tablet 12/21/20 Unknown Rx Insulin Regular, Human [HumuLIN R] 0 units SUB-Q Q6H units 12/21/20 Unknown Rx Lansoprazole Solutab [Prevacid 30 mg FEEDTUBE QDAY tab.rapdis 12/21/20 Unknown Rx Solutab] Lipase/Protease/Amylase [Pancreaze 1 each FEEDTUBE PRN PRN capsule 12/21/[address],500 Unit] Min Oil/Petrolatum [Artificial 1 applic OU Q4HR PRN tube 12/21/20 Unknown Rx Tears Ophth Oint] Multivitamin Tab [Multiple Vitamin 1 each PO DAILY tablet 12/21/20 Unknown Rx TAB (Theragran)] PHENobarbitaL [PHENobarbital] 15 mg PO BID 30 Days #60 tablet 12/21/20 Unknown Rx Petrolatum,White [Vaseline Lip 1 applic TP Q2HR PRN tube 12/21/20 Unknown Rx Therapy] Sodium Bicarbonate 325 mg FEEDTUBE PRN PRN tablet 12/21/20 Unknown Rx Sodium Chloride 2 gm PO TID tablet 12/21/20 Unknown Rx Thiamine [Vitamin B-1] 100 mg PO QDAY tablet 12/21/20 Unknown Rx levETIRAcetam [Keppra] 1,000 mg FEEDTUBE BID #30 oral.liqd 12/21/20 Unknown Rx Allergies Allergy/AdvReac Type Severity Reaction Status Date / Time No Known Allergies Allergy Verified 02/24/18 09:21 ED Review of Systems ROS: Stated complaint: CARDIAC ARREST Other details as noted in HPI Comment: Unobtainable due to pts medical conditions (Cardiac arrest) ED Past Medical Hx - Past Medical History Hx Hypertension: No Hx Congestive Heart Failure: No Hx Diabetes: No Hx Liver Disease: No Hx Renal Disease: No Hx Seizures: Yes Hx Psychiatric Treatment: Yes Hx Asthma: No Hx COPD: No Additional medical history: Cannot be obtained from the patient secondary to cardiac arrest - Surgical History Additional Surgical History: Cannot be obtained from the patient secondary to cardiac arrest - Social History Smoking Status: Current Every Day Smoker Substance Use Type: Other (Cannot be obtained from the patient secondary to cardiac arrest) - Medications Home Medications: Home Medications Medication Instructions Recorded Confirmed Last Taken Type Vitamin B-1 100 mg PO DAILY 08/12/20 11/12/20 Unknown History Acetaminophen [Acetaminophen TAB] 650 mg PO Q4H PRN tablet 12/21/20 Unknown Rx Folic Acid [Folvite] 1 mg PO DAILY tablet 12/21/20 Unknown Rx Insulin Regular, Human [HumuLIN R] 0 units SUB-Q Q6H units 12/21/20 Unknown Rx Lansoprazole Solutab [Prevacid 30 mg FEEDTUBE QDAY tab.rapdis 12/21/20 Unknown Rx Solutab] Lipase/Protease/Amylase [Pancreaze 1 each FEEDTUBE PRN PRN capsule 12/21/[address],500 Unit] Min Oil/Petrolatum [Artificial 1 applic OU Q4HR PRN tube 12/21/20 Unknown Rx Tears Ophth Oint] Multivitamin Tab [Multiple Vitamin 1 each PO DAILY tablet 12/21/20 Unknown Rx TAB (Theragran)] PHENobarbitaL [PHENobarbital] 15 mg PO BID 30 Days #60 tablet 12/21/20 Unknown Rx Petrolatum,White [Vaseline Lip 1 applic TP Q2HR PRN tube 12/21/20 Unknown Rx Therapy] Sodium Bicarbonate 325 mg FEEDTUBE PRN PRN tablet 12/21/20 Unknown Rx Sodium Chloride 2 gm PO TID tablet 12/21/20 Unknown Rx Thiamine [Vitamin B-1] 100 mg PO QDAY tablet 12/21/20 Unknown Rx levETIRAcetam [Keppra] 1,000 mg FEEDTUBE BID #30 oral.liqd 12/21/20 Unknown Rx ED Physical Exam - General Limitations: Altered Mental Status, Physical Limitation, Other (CPR is in progress. He is frail and debilitated.) General appearance: cachectic - Head Head exam: Present: atraumatic - Eye Eye exam: Absent: scleral icterus, conjunctival injection - ENT ENT exam: Present: mucous membranes dry, other (ET tube in place) - Neck Neck exam: Present: other (No crepitus) - Respiratory Respiratory exam: Present: rhonchi (With bag ventilation), other (Apneic) - Cardiovascular Cardiovascular Exam: Present: other (Pulseless) - GI/Abdominal GI/Abdominal exam: Present: soft - Extremities Exam Extremities exam: Present: other (Contractures are noted. Patient is frail and debilitated) - Neurological Exam Neurological exam: Present: other (Unresponsive) - Psychiatric Psychiatric exam: Present: other (Unresponsive) - Skin Skin exam: Present: warm ED Course - Reevaluation(s) Reevaluation #1: 08/09/21 03:23 CPR was continued. Patient had been found to be hypoglycemic upon EMS arrival. D50 was administered. Epinephrine was administered. CPR was continued. We did hold CPR for pulse checks. Ultimately, bedside ultrasound was completed which was negative for cardiac activity. Resuscitative efforts were halted. Patient was pronounced at 2:30 AM 08/09/21 04:33 - Procedure Description Procedures done: Procedure note: Bedside cardiac ultrasound. Indication: Cardia c arrest, evaluate cardiac activity. Patient was supine. CPR was halted. Small curvilinear probe was used to evaluate cardiac activity. There was no cardiac activity noted. There is no obvious pericardial effusion. Patient tolerated this without difficulty and there were no complications. ED Medical Decision Making - Lab Data Rhythm strip #1: Asystole. Monitor observe 10 seconds. Rhythm strip #2: Asystole. Monitor observe 10 seconds. - Medical Decision Making Patient presented in cardiac arrest. He had at least 40 minutes of downtime without return of spontaneous circulation. He was apneic. Patient was pulseless. There is no cardiac cavity on bedside ultrasound. Patient was ultimately pronounced. Critical Care Time: No Critical care attestation.: If time is entered above; I have spent that time in minutes in the direct care of this critically ill patient, excluding procedure time. Critical Care Time: There was no critical care time. Total CPR time was 6 minutes. ED Disposition Clinical Impression: Cardiac arrest Disposition: 20 Is pt being admited?: No Condition: Stable Referrals: PRIMARY CARE, [Primary Care Provider] - 3-5 Days
== END 2021-08-09 06:05 ==
LOC: ED 02:26
DX: I46.9 Cardiac arrest, cause unspecified (principal); Z79.899 Other long term (current) drug therapy
CPT/HCPCS: 92950; 99285